=== PATIENT | female | born 1955 | race African-American/Black ===

== ENCOUNTER → 2017-12-13 14:31 | Outpatient (CLI) | payer BC, SELFPAY ==
--- NOTE | 2017-12-13 14:57 | EKG12_ITS ---
Test Reason : PREOP Blood Pressure : / mmHG Vent. Rate : 068 BPM Atrial Rate : 068 BPM P-R Int : 110 ms QRS Dur : 074 ms QT Int : 328 ms P-R-T Axes : 045 045 056 degrees QTc Int : 348 ms Sinus rhythm with short NH with occasional Premature ventricular complexes Possible Left atrial enlargement Nonspecific T wave abnormality Abnormal ECG Confirmed by MARINA MCADAMS, GLORIA ([id number]), slot editor MIKHAIL FAM ([id number]) on 12/14/2017 8:22:13 AM Referred By: Ari Sinclair Confirmed By:GLORIA GRAY MD
[2017-12-13 15:48] LABS: Hematocrit 42.8 % (37-47); Hemoglobin 13.9 g/dl (12.0-15.0); Mean Corp Hgb Conc 32.5 g/gl (32-36); Mean Corpuscular Hgb 30.2 pg (27.0-32.0); Mean Platelet Vol. 10.6 fl (6.2-12.0); Platelet Count 268 K/mm3 (150-450); RBC Distribution Width SD 43.4 fl (35.1-43.9); Scan Indicated on CBC? Y/N NO; White Blood Count 8.1 K/mm3 (4.4-11.0)
[2017-12-13 16:00] LABS: Anion Gap 6 (5-15); BUN 17 mg/dL (7-18); BUN/Creat Ratio 23.8 RATIO (10-20); Calcium,Total 9.2 mg/dL (8.5-10.1); Chloride 108 mmol/L (98-107); Creatinine, Serum 0.71 mg/dL (0.55-1.02); EST Glomerular Filtration Rate 88 mL/min (>60); Est Glom Filt Rate - Afr Amer 106 mL/min (>60); Glucose 85 mg/dL (74-106); Potassium 3.9 mmol/L (3.5-5.1); Sodium Level 142 mmol/L (136-145)
== END ==
PROVIDERS: Family Provider Family Medicine; PCP Family Medicine; Visit Provider Orthopaedic Surgery
DX: Z01.810 Encounter for preprocedural cardiovascular examination (principal); Z01.818 Encounter for other preprocedural examination; I10 Essential (primary) hypertension
CPT/HCPCS: 36415; 80048; 85027; 93005

== ENCOUNTER 2018-01-08 12:24 | Day surgery (SDC) | payer BC, SELFPAY ==
[2018-01-08 12:42] VITALS: BP 115/66; PULSE 71; RESP 16; TEMP 36.4; O2SAT 100; BMI 26.6
[2018-01-08] MEDS: 0.9% Saline Lock 10 ML Syringe IV (13:10)
[2018-01-08] MEDS: Bupivacaine 0.25% 30 ML Vial (13:10)
[2018-01-08] MEDS: MethylPREDNISolone Acetate 80 MG/ML Vial (13:10)
--- NOTE | 2018-01-08 13:30 | RAD_ITS ---
PROCEDURE: Caudal block. DATE OF EXAMINATION: January 08, 2018. INDICATION: Female, 62 years old. Low back pain. FLUOROSCOPY TIME (if supplied): (0:09) minutes/seconds Intraoperative imaging provided for caudal block. The spinal needle is seen along the posterior midportion of the sacrum. RAD/Fluor Guidance for Spine Inj IMPRESSION: Intraoperative imaging provided for caudal block. Electronically Signed: Sukhjinder Doss MD at 15:15 EDT Tel [phone], Service support ,
[2018-01-08 14:17] VITALS: BP 103/64; BP 115/66; PULSE 88; RESP 16; TEMP 37.1; O2SAT 98
[2018-01-08 14:22] VITALS: BP 115/66; BP 98/62; PULSE 78; RESP 16; O2SAT 97
[2018-01-08 14:27] VITALS: BP 100/68; BP 115/66; PULSE 80; RESP 16; O2SAT 99
[2018-01-08 14:32] VITALS: BP 103/69; BP 115/66; PULSE 77; RESP 16; TEMP 36.8; O2SAT 97
[2018-01-08 14:54] VITALS: BP 115/66
--- NOTE | 2018-01-08 16:41 | PCM.OPRPT ---
Problem List (1) Degeneration, intervertebral disc, lumbosacral Status: Chronic (2) Radiculopathy of lumbosacral region Status: Chronic (3) Spinal stenosis of lumbosacral region Status: Chronic Report of Operation Date of Procedure: 01/08/18 Pre-Operative Diagnosis: Lumbosacral radiculopathy, lumbosacral degenerative disc disease, lumbosacral spinal stenosis Post-Operative Diagnosis: Lumbosacral radiculopathy, lumbosacral degenerative disc disease, lumbosacral spinal stenosis Surgery/Procedure Performed:: Diagnostic/therapeutic caudal epidural steroid injection Description of Surgical Findings:: PROCEDURE: Diagnostic/therapeutic caudal epidural steroid injection PREOPERATIVE DIAGNOSIS: Lumbosacral radiculopathy, lumbosacral degenerative disc disease, lumbosacral spinal stenosis POSTOPERATIVE DIAGNOSIS: Lumbosacral radiculopathy, lumbosacral degenerative disc disease, lumbosacral spinal stenosis ANESTHESIA: MAC COMPLICATIONS: None BLOOD LOSS: Minimal PROCEDURE IN DETAIL: History and physical today was reviewed. Risks and benefits of the procedure were explained. The patient understood, agreed to our procedure, and informed consent was obtained. IV inserted per routine protocol. The patient was taken to the operating room, placed in a prone position with a pillow positioned underneath the abdomen. The lower back and buttock area was prepped and draped in a sterile fashion using iodine ?3 and fluoroscopy guidance on the lateral view the caudal space was identified skin and subcutaneous tissue anesthetized approximately 3 cc of 1% lidocaine using a 25-gauge regular needle under direct visualization fluoroscopy using a 22-gauge 3-1/2 inch spinal needle the needle was advanced via the skin through the sacral hiatus tip of the needle passed through the sacrococcygeal ligament advanced approximately S4 area after negative aspiration for blood or CSF a total of 3 cc of contrast were injected to confirm correct placement of the needle as well as cephalad spread the spread was followed to approximately L5 area after confirmation AP as well as lateral view view and repeated negative aspiration a total of 15 cc of preservative preservative-free 0.125% Marcaine with 80 mg of Depo-Medrol were injected easily. The needles were then removed intact. The patient experienced no signs or symptoms intrathecal, intravascular injection. The patient experienced no paraesthesia. The procedure was completed without any apparent difficult, any complication. The patient appeared to tolerate well. ASSESSMENT AND PLAN: This is a 62-year-old female with lumbosacral radiculopathy, lumbosacral degenerative disc disease, lumbosacral spinal stenosis status post diagnostic/therapeutic caudal epidural steroid injection. The patient will continue her current medications. The patient will follow in approximately 2 weeks for possible repeat of the procedure if indicated.
--- NOTE | 2018-01-08 16:46 | OP.PCM_ITS ---
Problem List (1) Degeneration, intervertebral disc, lumbosacral Status: Chronic (2) Radiculopathy of lumbosacral region Status: Chronic (3) Spinal stenosis of lumbosacral region Status: Chronic Report of Operation Date of Procedure: 01/08/18 Pre-Operative Diagnosis: Lumbosacral radiculopathy, lumbosacral degenerative disc disease, lumbosacral spinal stenosis Post-Operative Diagnosis: Lumbosacral radiculopathy, lumbosacral degenerative disc disease, lumbosacral spinal stenosis Surgery/Procedure Performed:: Diagnostic/therapeutic caudal epidural steroid injection Description of Surgical Findings:: PROCEDURE: Diagnostic/therapeutic caudal epidural steroid injection PREOPERATIVE DIAGNOSIS: Lumbosacral radiculopathy, lumbosacral degenerative disc disease, lumbosacral spinal stenosis POSTOPERATIVE DIAGNOSIS: Lumbosacral radiculopathy, lumbosacral degenerative disc disease, lumbosacral spinal stenosis ANESTHESIA: MAC COMPLICATIONS: None BLOOD LOSS: Minimal PROCEDURE IN DETAIL: History and physical today was reviewed. Risks and benefits of the procedure were explained. The patient understood, agreed to our procedure, and informed consent was obtained. IV inserted per routine protocol. The patient was taken to the operating room, placed in a prone position with a pillow positioned underneath the abdomen. The lower back and buttock area was prepped and draped in a sterile fashion using iodine ?3 and fluoroscopy guidance on the lateral view the caudal space was identified skin and subcutaneous tissue anesthetized approximately 3 cc of 1 % lidocaine using a 25-gauge regular needle under direct visualization fluoroscopy using a 22-gauge 3-1/2 inch spinal needle the needle was advanced via the skin through the sacral hiatus tip of the needle passed through the sacrococcygeal ligament advanced approximately S4 area after negative aspiration for blood or CSF a total of 3 cc of contrast were injected to confirm correct placement of the needle as well as cephalad spread the spread was followed to approximately L5 area after confirmation AP as well as lateral view view and repeated negative aspiration a total of 15 cc of preservative preservative-free 0.125% Marcaine with 80 mg of Depo-Medrol were injected easily. The needles were then removed intact. The patient experienced no signs or symptoms intrathecal, intravascular injection. The patient experienced no paraesthesia. The procedure was completed without any apparent difficult, any complication. The patient appeared to tolerate well. ASSESSMENT AND PLAN: This is a 62-year-old female with lumbosacral radiculopathy, lumbosacral degenerative disc disease, lumbosacral spinal stenosis status post diagnostic/ therapeutic caudal epidural steroid injection. The patient will continue her current medications. The patient will follow in approximately 2 weeks for possible repeat of the procedure if indicated.
== END 2018-01-08 14:59 | disposition home or self-care (01) ==
LOC: SDC 12:24 → AC 12:26
PROVIDERS: Family Provider Family Medicine; PCP Family Medicine; Visit Provider Anesthesiology Pain Medicine
PROC: 3E0S3BZ Introduction of Anesthetic Agent into Epidural Space, Percutaneous Approach (ICD-10-PCS; CPT 62282; principal; 2018-01-08 13:25)
DX: M51.17 Intervertebral disc disorders with radiculopathy, lumbosacral region (principal); M48.07 Spinal stenosis, lumbosacral region; I10 Essential (primary) hypertension; J45.909 Unspecified asthma, uncomplicated; E78.00 Pure hypercholesterolemia, unspecified; M79.7 Fibromyalgia; M51.37 Other intervertebral disc degeneration, lumbosacral region; M19.011 Primary osteoarthritis, right shoulder; M54.2 Cervicalgia; Z79.891 Long term (current) use of opiate analgesic; Z87.891 Personal history of nicotine dependence
CPT/HCPCS: 64483; 77003; J7120; A4216

== ENCOUNTER 2018-01-15 12:00 | Outpatient (RCR) | payer BC, SELFPAY ==
--- NOTE | 2018-01-01 15:54 | HP.OTEVAL ---
Patient's Visit Information LELE AUGUSTE is a 62 year old F, referred to Occupational Therapy by Ari Sinclair, with a diagnosis of bilateral CTS. Date of Evaluation: 01/01/18 Occupational Therapist: Taya Mora, OTR/L, CHT - Subjective Subjective: pt states her left UE/hand was casing pain, tingling/ and keeping her up at night- pt went to and had a nerve conduction test- revealing bilateral CTS- pt had left CTR performed on December 15, 2017. pt states her symptoms in left hand have resolved- pt states when she wakes up in the morning it takes about an hour or more to get her pain and motion to start using her hands and arms for daily occupations. pt states a hot shower and a heating pad does help decrease her pain . 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 with BADLs and IADLS Goal:: pt will report pain no greater than 2/10 with use of bilateral hands with BADLS and IADLS by d/c Goal:: pt will demo understanding of scar mtg by end of 2nd session. Goal:: pt will demo understanding of joint protection and ad. eq. to decrease joint stress with performance of BADLS and IADLS - Rehabilitation General Assessment: s/p left CTR. dx right sprain of shoulder - defered to PT at this time- OT will focus on pt CTS and CTR- pt demo with a decrease in her ind. with BADLS and IADLS- pt would benefit from skilled OTR/L services 1-2x week for 4 weeks to return pt to PLOF and ed. on joint protection and ad. eq. for her ind. with BADLS and IADLS Rehabilitation Potential: Good - Anticipated Interventions Anticipated Interventions: A/AAROM/PROM, Strengthening, Scar Care, Triggerpoint Release, Desensitization, Modalities, Joint Protection/Energy Conservation, Fine Motor Coord/Gurdeep - Visit Plan Frequency: 1-2x /Week Duration: 4 Weeks TEXT: Thank you for the opportunity to evaluate your patient. For Medicare and Medicare HMO plans, please review the plan of care and approve it. It will need to be FAXED BACK to us at [phone] for Medicare purposes. Please let me know if there are questions or concerns regarding this plan of care. Physician Signature: Date:
--- NOTE | 2018-01-15 13:48 | HP.OTDCSUM ---
HP - OT D/C Summary It has been my pleasure to treat LELE AUGUSTE under orders from Ari Sinclair, for the diagnosis of bilateral CTS for a total of 3 visit(s). Please see the following information for a summary of their discharge status. - Objective Objective/Function: pt demo all ROM WNL-. 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 pt has met goals in OT - Goals Patient Goals: Regain Mobility, Regain Strength, Decrease Pain, Improve Fine Motor Skills, Use Hand/Wrist/Arm Normally Again Goal:: pt will demo a increase in left power transformer repair supervisor strength to 30# or greater to increase her ind. with BADLs and IADLS Goal:: pt will report pain no greater than 2/10 with use of bilateral hands with BADLS and IADLS by d/c Goal:: pt will demo understanding of scar mtg by end of 2nd session. Goal:: pt will demo understanding of joint protection and ad. eq. to decrease joint stress with performance of BADLS and IADLS - Plan Plan: D/C - D/C Information Discharge Comments: Pt was seen for 3 visits following a left CTR. pts pain decreased and she reports she is ind. with all BADLs and IADLs. pt has met functional goals in therapy and is D/C at this time. If there are questions or concerns regarding this patient's occupational therapy, please fell free to call me at [phone]. Thank you for the referral of this patient. Sincerely, Taya Mora, OTR/L, CHT
--- NOTE | 2018-01-17 14:39 | HP.PTEVAL_ITS ---
Patient's Visit Information LELE AUGUSTE is a 62 year old F referred to Physical Therapy by Ari Sinclair with a diagnosis of Sprain of R RTC and R shoulder bursitis. Date of Evaluation: 01/09/18 Physical Therapist: Willis Mireles - Visit Plan Frequency: 1x/Week Duration: 6 Weeks Plan: Start with Phase II shoulder program with in pain free ranges. Progress to phase III in pain free ranges as tolerated. Pt. reports having difficulty getting here and will have PT weekly to accomadate schedule. Pt. given exercises to complete at home in between. - Subjective Subjective: Pt. is here today for her initial evaluation with diagnosis of sprain of R rotator cuff and R shoulder bursitis. Pt. reports having increased R shoulder pain for ~4 months now. Pt. recently having L carpal tunnel release. Pt. reports increased pain during that period possibly due to sleeping on her R side. Pt. also is ~1 year out of lumbar spinal surgery, pt. c/o continued dorsal surface of L foot. She has increased pain with lifting her arm over head , sleeping on R side, reaching overhead. Pt. reports pain extends into mid deltoid with above activities. Pt. denies N/T. Pt. has been reducing movement in R arm due to soreness. Pt. is hopeful to improve symptoms in order to get back to all ADL and household work without issues. - Pain R shoulder Pain Intensity (Out of 10): 2 - Objective POSTURE: Pt. has slight rounded shoulders, normal cervical spine positioning. Pt. has normal shoulder positioning with no elevation noted. PALPATION: Pt. has slight tenderness along sub acromial spaced, greater on posterior aspect compaired to anterior. Pt. has mild tenderness at UT and levator scapulea. NEUROLOGICAL: Pt. has normal sensation to light and sharp touch of bilateral UEs. Pt. has 2+ biceps and triceps DTR bilaterally. Pt. has no signs of upper limb tension.. ROM: R shoulder- flexion 170deg increase NW at end range, abd 165deg mild increase NW (painful arc starting at 90deg), functional ER C6 mild increase NW, functional IR T10 mild increase NW. Normal cervical spine ROM without increase in symptoms. MMT: LUE 5/5 throughout without issues. RUE- elbow- 5/5 throughout without increase in symptoms, shoulder- flexion 4+/5 increase NW, abd 4/5 increase NW, ext 5/5 NE, ER 4/5 increase NW, IR 5/5 NE. - Special Tests R Shoulder Empty Can - SS: Positive R Shoulder Belly Press - SupScap: Negative R Shoulder Neer - Impingement: Positive R Shoulder Puckett Donta - Impingement: Positive R Shoulder Biceps Load Test - Labrum: Negative R Shoulder Speeds Test - Labrum/Biceps: Positive - Goals Goal 1:: Pt. to be I with HEP. Goal Time Frame: 4-6 Weeks Goal 2:: Pt. to have full ROM of R shoulder without increase in symptoms. Goal Time Frame: 4-6 Weeks Goal 3:: Pt. to have increased RUE strength by 1/2 grade of all effected musculature allowing increased ability to complete all ADLs. Goal Time Frame: 4-6 Weeks Goal 4:: Pt. to sleep throughout the night without increase in R shoulder pain. Goal Time Frame: 4-6 Weeks - Rehabilitation Potential Physical Therapy Diagnosis: Pt. has signs and symptoms consistent with R RTC strain and R shoulder bursitis. Pt. has + signs for impingement of RTC/bursa. Pt. has associated weakness, likely secondary to increased pain. Pt. has limited motion with increased pain as well. She had an MRI stating no recurrent tearing. Pt. would benefit from PT to increase ROM, decrease pain and progress strength in order to get back to all PLOF without limitations. Rehabilitation Potential: Good - Anticipated Interventions Patient/Client Instruction: Educate patient on: Condition, Plan of Care, Risk Factors, Benefits of Fitness Program For the Purpose of:: To improve safety, To improve health and function, To foster healthy habits, To improve decision making, To facilitate caregiver knowledge, To improve self management, To prevent re-injury, To improve ability to perform tasks related to life management, To improve tolerance to ADL's Therapeutic Exercise to Include: Strength training, Power training, Postural training, Flexibilty training, Passive ROM, Active ROM, Scapular Strength/ Stabilization For the Purpose of:: To decrease pain, To increase ROM, To improve nutrient delivery to tissue, To increase oxygenation perfusion, To improve muscle performance and motor function, To improve ability to perform ADL's, To improve health of tissue, To decrease soft tissue restriction, To increase flexibility/ ROM Manual Therapy Techniques to Include: Trigger point massage, Mobilization, Passive ROM, Functional dry needling, Soft tissue mobilization For the Purpose of:: To decrease pain, To decrease swelling/inflammation, To improve nutrient delivery to tissue, To improve health of tissue, To decrease soft tissue restriction, To increase flexibility/ROM Cryotherapy (ice pack, ice massage): Yes Thermo therapy (hot pack): Yes Ultrasound (thermal/non thermal): Yes For the Purpose of:: To decrease pain, To decrease swelling/inflammation, To increase ROM Thank you for the opportunity to evaluate your patient. For Medicare and Medicare HMO plans, please review the plan of care and approve it. It will need to be FAXED BACK to us at [phone] for Medicare purposes. Please let me know if there are questions or concerns regarding this plan of care. Physician Signature: Date:
--- NOTE | 2018-04-24 13:23 | HP.PT.NRP ---
HP - Discharge Summary (1) - Patient Information LELE AUGUSTE was seen in my office for initial evaluation on 01/09/18. The following Plan of Care was established for this patient: Initial Frequency: 1x/Week Initial Duration: 6 Weeks - Anticipated Interventions Patient/Client Instruction: Educate patient on: Condition, Plan of Care, Risk Factors, Benefits of Fitness Program For the Purpose of:: To improve safety, To improve health and function, To foster healthy habits, To improve decision making, To facilitate caregiver knowledge, To improve self management, To prevent re-injury, To improve ability to perform tasks related to life management, To improve tolerance to ADL's Therapeutic Exercise to Include: Strength training, Power training, Postural training, Flexibilty training, Passive ROM, Active ROM, Scapular Strength/Stabilization For the Purpose of:: To decrease pain, To increase ROM, To improve nutrient delivery to tissue, To increase oxygenation perfusion, To improve muscle performance and motor function, To improve ability to perform ADL's, To improve health of tissue, To decrease soft tissue restriction, To increase flexibility/ROM Manual Therapy Techniques to Include: Trigger point massage, Mobilization, Passive ROM, Functional dry needling, Soft tissue mobilization For the Purpose of:: To decrease pain, To decrease swelling/inflammation, To improve nutrient delivery to tissue, To improve health of tissue, To decrease soft tissue restriction, To increase flexibility/ROM Cryotherapy (ice pack, ice massage): Yes Thermo therapy (hot pack): Yes Ultrasound (thermal/non thermal): Yes For the Purpose of:: To decrease pain, To decrease swelling/inflammation, To increase ROM This patient was last seen in our office 01/09/18. Pertinent comments regarding their Physical therapy will appear below: Pt. was seen for her initial eval with diagnosis of RTC strain. Pt. did not attent any follow up visits and will be DC from PT at this point in time. At this point I will be discontinuing this patient from physical therapy. I would be happy to see this patient again in the future if found appropriate by the physician. Thank you! Willis Mireles
== END 2018-01-15 19:00 | disposition home or self-care (01) ==
LOC: OT 12:00
PROVIDERS: Family Provider Family Medicine; PCP Family Medicine; Visit Provider Orthopaedic Surgery
DX: S43.421D Sprain of right rotator cuff capsule, subsequent encounter (principal); M75.51 Bursitis of right shoulder; G56.03 Carpal tunnel syndrome, bilateral upper limbs
CPT/HCPCS: 97035; 97110; 97161; 97166; 97168

== ENCOUNTER → 2018-02-02 15:36 | Outpatient (CLI) | payer BC, SELFPAY ==
[2018-02-02 17:38] LABS: Erythrocyte Sedimentation Rate 38 mm/hr (0-30)
[2018-02-15 10:26] LABS: CCP IgG Antibodies > 250 units (0-19)
[2018-02-15 12:25] LABS: ANTINUCLEAR ANTIBODIES DIRECT Negative (Negative)
== END ==
PROVIDERS: Family Provider Family Medicine; PCP Family Medicine; Visit Provider Family Medicine
DX: M25.50 Pain in unspecified joint (principal)
CPT/HCPCS: 36415; 85652; 86038; 86140; 86200; 86431

== ENCOUNTER → 2018-03-26 12:38 | Outpatient (CLI) | payer BC, SELFPAY ==
[2018-03-26 14:03] LABS: Absolute Lymphocyte Count 1.99 X10^3/ul (0.83-4.51); Basophil# 0.03 X10^3/uL; Basophil% 0.4 % (0-1); Eosinophil# 0.36 X10^3/uL; Eosinophils% 5.2 % (0-5); Hematocrit 42.4 % (37-47); Hemoglobin 13.9 g/dl (12.0-15.0); Lymphocyte # 1.99 X10^3/ul (4.0); Lymphocyte % 28.7 % (19-41); Mean Corp Hgb Conc 32.8 g/gl (32-36); Mean Corpuscular Hgb 29.6 pg (27.0-32.0); Mean Corpuscular Volume 90.4 fL (81-99); Mean Platelet Vol. 10.5 fl (6.2-12.0); Monocyte# 0.55 X10^3/uL; Monocyte% 7.9 % (0-10); Neutrophil # 3.99 X10^3/uL (2.7-7.7); Neutrophil % 57.7 % (47-70); Platelet Count 284 K/mm3 (150-450); RBC Distribution Width CV 14.9 % (11.6-14.6); RBC Distribution Width SD 48.8 fl (35.1-43.9); Red Blood Count 4.69 M/mm3 (4.2-5.4); White Blood Count 6.9 K/mm3 (4.4-11.0)
[2018-03-26 14:04] LABS: POSITIVE COUNT NO; POSITIVE DIFFERENTIAL NO; POSITIVE MORPHOLOGY NO
[2018-03-26 14:05] LABS: Erythrocyte Sedimentation Rate 39 mm/hr (0-30)
[2018-03-26 14:07] LABS: Vitamin D,25 Hydroxy 37.1 ng/mL (29.95-100.01)
[2018-03-26 14:12] LABS: ALB/GLOB Ratio 0.8 RATIO (0.9-2.4); AST(SGOT) 14 U/L (15-37); Alanine Aminotransfer ALT/SGPT 20 U/L (13-56); Albumin, Serum 3.1 g/dL (3.2-5.0); Alkaline Phosphatase 98 U/L (45-117); Anion Gap 9 (5-15); BUN 15 mg/dL (7-18); Calcium,Total 8.8 mg/dL (8.5-10.1); Chloride 108 mmol/L (98-107); Cholesterol 150 mg/dL (200); Creatinine, Serum 0.71 mg/dL (0.55-1.02); EST Glomerular Filtration Rate 88 mL/min (>60); Est Glom Filt Rate - Afr Amer 106 mL/min (>60); Globulin 3.7 g/dL (2.2-4.2); Glucose 97 mg/dL (74-106); High Density Lipoprotein 72 mg/dL; Iron 51 ug/dL (50-170); Potassium 4.1 mmol/L (3.5-5.1); Protein, Total 6.8 g/dL (6.4-8.2); Sodium Level 144 mmol/L (136-145); Thyroid Stim Hormone (TSH) 1.18 uIU/mL (0.358-3.74); Triglycerides 61 mg/dL; Very Low Density Lipoprotein 12 mg/dL (5-40)
== END ==
PROVIDERS: Family Provider Family Medicine; PCP Family Medicine; Visit Provider Family Medicine
DX: E78.5 Hyperlipidemia, unspecified (principal); E55.9 Vitamin D deficiency, unspecified; I10 Essential (primary) hypertension; R53.83 Other fatigue; Z51.81 Encounter for therapeutic drug level monitoring; M06.9 Rheumatoid arthritis, unspecified
CPT/HCPCS: 36415; 80053; 80061; 82306; 83540; 84443; 85025; 85652; 86140

== ENCOUNTER 2018-04-09 10:53 | Day surgery (SDC) | payer BC, MEDICAID, SELFPAY ==
[2018-04-09 11:12] VITALS: BP 122/83; PULSE 66; RESP 18; TEMP 36.5; O2SAT 100; BMI 25.4
[2018-04-09] MEDS: MethylPREDNISolone Acetate 80 MG/ML Vial (12:08)
[2018-04-09] MEDS: Bupivacaine 0.25% 30 ML Vial (12:08)
[2018-04-09 12:17] VITALS: BP 104/71; BP 122/83; PULSE 77; RESP 14; TEMP 36.8; O2SAT 100
[2018-04-09 12:22] VITALS: BP 122/83; BP 92/63; PULSE 71; RESP 16; O2SAT 100
--- NOTE | 2018-04-09 12:25 | OP.PCM_ITS ---
Problem List (1) Degeneration, intervertebral disc, lumbosacral Status: Chronic (2) Radiculopathy of lumbosacral region Status: Chronic (3) Spinal stenosis of lumbosacral region Status: Chronic Report of Operation Date of Procedure: 04/09/18 Pre-Operative Diagnosis: Lumbosacral radiculopathy, lumbosacral degenerative disc disease, lumbosacral spinal stenosis Post-Operative Diagnosis: Lumbosacral radiculopathy, lumbosacral degenerative disc disease, lumbosacral spinal stenosis Surgery/Procedure Performed:: Caudal epidural steroid injection Description of Surgical Findings:: PROCEDURE: Caudal epidural steroid injection PREOPERATIVE DIAGNOSIS: Lumbosacral radiculopathy, lumbosacral degenerative disc disease, lumbosacral spinal stenosis POSTOPERATIVE DIAGNOSIS: Lumbosacral radiculopathy, lumbosacral degenerative disc disease, lumbosacral spinal stenosis ANESTHESIA: MAC COMPLICATIONS: None BLOOD LOSS: Minimal PROCEDURE IN DETAIL: History and physical today was reviewed. Risks and benefits of the procedure were explained. The patient understood, agreed to our procedure, and informed consent was obtained. IV inserted per routine protocol. The patient was taken to the operating room, placed in a prone position with a pillow positioned underneath the abdomen. The lower back and buttock area was prepped and draped in a sterile fashion using iodine ?3 under fluoroscopy guidance a lateral view the caudal space was was identified skin and subcutaneous tissue anesthetized approximately 3 cc of 1 % lidocaine using a 25-gauge regular needle. Under direct visualization fluoroscopy in a lateral view using a 22-gauge 3-1/2 inch spinal needle needle was advanced via the skin through the sacral hiatus tip of the needle passed through the sacrococcygeal ligament advanced approximately S4 area after negative aspiration for blood or CSF a total of 3 cc of contrast were injected to confirm correct placement of the needle as well as cephalad spread the spread was followed to approximately L5 area after confirmation of AP as well as lateral view and repeated negative aspiration a total of 15 cc of preservative free 0.125% Marcaine with 80 mg of Depo-Medrol were injected easily , the needles were then removed intact. The patient experienced no signs or symptoms intrathecal, intravascular injection. The patient experienced no paraesthesia. The procedure was completed without any apparent difficult, any complication. The patient appeared to tolerate well. ASSESSMENT AND PLAN: This is a 62-year-old female with lumbosacral radiculopathy, lumbosacral degenerative disc disease, lumbosacral spinal stenosis status post caudal epidural steroid injection, the patient will continue her current medications. The patient will follow in approximately 2 weeks for possible repeat of the procedure if indicated.
[2018-04-09 12:27] VITALS: BP 122/83; BP 99/69; PULSE 66; RESP 16; O2SAT 99
[2018-04-09 12:30] VITALS: BP 107/75; BP 122/83; PULSE 57; RESP 16; TEMP 36.5; O2SAT 100
[2018-04-09 12:57] VITALS: BP 122/83
== END 2018-04-09 12:57 | disposition home or self-care (01) ==
LOC: SDC 10:53 → AC 11:00
PROVIDERS: Family Provider Family Medicine; PCP Family Medicine; Visit Provider Anesthesiology Pain Medicine
PROC: 3E0S3BZ Introduction of Anesthetic Agent into Epidural Space, Percutaneous Approach (ICD-10-PCS; CPT 62282; principal; 2018-04-09 12:05)
DX: M47.27 Other spondylosis with radiculopathy, lumbosacral region (principal); M48.07 Spinal stenosis, lumbosacral region; M46.86 Other specified inflammatory spondylopathies, lumbar region; M51.37 Other intervertebral disc degeneration, lumbosacral region; M19.011 Primary osteoarthritis, right shoulder; I10 Essential (primary) hypertension; E78.00 Pure hypercholesterolemia, unspecified; J44.9 Chronic obstructive pulmonary disease, unspecified; F32.9 Major depressive disorder, single episode, unspecified; F90.9 Attention-deficit hyperactivity disorder, unspecified type; M06.9 Rheumatoid arthritis, unspecified; G25.81 Restless legs syndrome; Z78.0 Asymptomatic menopausal state; Z98.1 Arthrodesis status; Z79.899 Other long term (current) drug therapy; Z79.891 Long term (current) use of opiate analgesic; Z87.891 Personal history of nicotine dependence
CPT/HCPCS: 01992; 62323; 64483; 77003; J7120; J3490

== ENCOUNTER → 2018-04-18 15:41 | Outpatient (CLI) | payer BC, MEDICAID, SELFPAY ==
[2018-04-18 17:45] LABS: ALB/GLOB Ratio 0.9 RATIO (0.9-2.4); AST(SGOT) 13 U/L (15-37); Alanine Aminotransfer ALT/SGPT 25 U/L (13-56); Albumin, Serum 3.7 g/dL (3.2-5.0); Alkaline Phosphatase 103 U/L (45-117); Anion Gap 9 (5-15); BUN 18 mg/dL (7-18); BUN/Creat Ratio 22.5 RATIO (10-20); Calcium,Total 9.1 mg/dL (8.5-10.1); Chloride 107 mmol/L (98-107); EST Glomerular Filtration Rate 77 mL/min (>60); Est Glom Filt Rate - Afr Amer 93 mL/min (>60); Globulin 3.9 g/dL (2.2-4.2); Glucose 117 mg/dL (74-106); Potassium 3.6 mmol/L (3.5-5.1); Protein, Total 7.6 g/dL (6.4-8.2); Sodium Level 142 mmol/L (136-145)
[2018-04-18 17:48] LABS: Absolute Lymphocyte Count 3.01 X10^3/ul (0.83-4.51); Absolute Neutrophil Count 5.5 X10^3/uL (2.0-7.7); Basophil# 0.05 X10^3/uL; Basophil% 0.5 % (0-1); Eosinophil# 0.14 X10^3/uL; Eosinophils% 1.5 % (0-5); Hematocrit 45.2 % (37-47); Lymphocyte # 3.01 X10^3/ul (4.0); Mean Corpuscular Hgb 28.6 pg (27.0-32.0); Mean Corpuscular Volume 92.2 fL (81-99); Mean Platelet Vol. 10.5 fl (6.2-12.0); Monocyte# 0.43 X10^3/uL; Monocyte% 4.7 % (0-10); Neutrophil # 5.46 X10^3/uL (2.7-7.7); Platelet Count 373 K/mm3 (150-450); RBC Distribution Width CV 14.5 % (11.6-14.6); RBC Distribution Width SD 48.9 fl (35.1-43.9); White Blood Count 9.1 K/mm3 (4.4-11.0)
[2018-04-18 17:52] LABS: POSITIVE COUNT NO; POSITIVE DIFFERENTIAL NO; POSITIVE MORPHOLOGY NO
[2018-04-20 12:07] LABS: SJOGREN'S Anti-SS-A test < 0.2 AI (0.0-0.9); SJOGREN'S Anti-SS-B test < 0.2 AI (0.0-0.9)
[2018-04-20 13:22] LABS: ANTINUCLEAR ANTIBODIES DIRECT Negative (Negative)
[2018-04-21 09:28] LABS: CCP IgG Antibodies > 250 units (0-19); HEPATITIS B SURFACE AG Negative (Negative); Hep B Surface Antibodies Non Reactive (.); Hep C Antibodies 0.1 s/co ratio (0.0-0.9)
== END ==
PROVIDERS: Family Provider Family Medicine; PCP Family Medicine; Visit Provider Internal Medicine Rheumatology
DX: M06.09 Rheumatoid arthritis without rheumatoid factor, multiple sites (principal); M16.0 Bilateral primary osteoarthritis of hip; I10 Essential (primary) hypertension; E78.5 Hyperlipidemia, unspecified; J45.909 Unspecified asthma, uncomplicated; F41.9 Anxiety disorder, unspecified; F32.89 Other specified depressive episodes; F90.9 Attention-deficit hyperactivity disorder, unspecified type
CPT/HCPCS: 36415; 80053; 85025; 86038; 86200; 86235; 86706; 86803; 87340

== ENCOUNTER 2018-05-14 08:41 | Day surgery (SDC) | payer BC, MEDICAID, SELFPAY ==
[2018-05-14] VITALS (10 sets, daily range): BP systolic 114–151; BP diastolic 72–92; PULSE 63–75; RESP 16–18; TEMP 36.3–37.2; O2SAT 99–100; BMI 25.2
--- NOTE | 2018-05-14 11:41 | PCM.IMDPSTOP ---
Immediate Post-Op Note Date of Procedure: 05/14/18 Primary Surgeon/Physician: Ari Sinclair ediscovery project manager: none Pre-Operative Diagnosis: CTS right, trigger fingers right thumb and long fingers Post-Operative Diagnosis: same Surgery/Procedure Performed:: RDTCL right, release A1 pulleys right thumb and long fingers Description of Surgical Findings:: see note Estimated Blood Loss: none Specimen's removed: none Type of Anesthesia:: Block,Edmund ASA Class: ASA2 Plus Emergency - Admit VTE Documentation VTE Present on Admission: No VTE Mechan Device Prophylaxis: SCD's VTE Pharm Prophylaxis ordered?: No Reason prophylaxis not ordered:: Treatment Not Indicated
== END 2018-05-14 13:27 | disposition home or self-care (01) ==
LOC: SDC 08:41 → AC 08:42
PROVIDERS: Family Provider Family Medicine; PCP Family Medicine; Visit Provider Orthopaedic Surgery
PROC: (CPT 64721; principal; 2018-05-14 10:00)
DX: G56.01 Carpal tunnel syndrome, right upper limb (principal); M65.311 Trigger thumb, right thumb; M65.331 Trigger finger, right middle finger; M06.9 Rheumatoid arthritis, unspecified; I10 Essential (primary) hypertension; E78.00 Pure hypercholesterolemia, unspecified; J45.909 Unspecified asthma, uncomplicated; G25.81 Restless legs syndrome; H54.7 Unspecified visual loss; F32.9 Major depressive disorder, single episode, unspecified; F41.9 Anxiety disorder, unspecified; Z78.0 Asymptomatic menopausal state; Z79.52 Long term (current) use of systemic steroids; Z79.899 Other long term (current) drug therapy; Z87.891 Personal history of nicotine dependence
CPT/HCPCS: 26055 ×2; 64721; J7120; J2405

== ENCOUNTER 2018-05-21 08:50 | Day surgery (SDC) | payer BC, MEDICAID, SELFPAY ==
[2018-05-21] VITALS (7 sets, daily range): BP systolic 90–133; BP diastolic 62–72; PULSE 57–68; RESP 14–17; TEMP 36.3–36.7; O2SAT 99–100; BMI 25.4
--- NOTE | 2018-05-21 09:45 | RAD_ITS ---
PROCEDURE: Bilateral L4 S1 facet joint block. DATE OF EXAMINATION: May 21, 2018. INDICATION: Female, 62 years old. Prior laminectomy and fusion. Back pain. FLUOROSCOPY TIME (if supplied): (0:42) minutes/seconds. 8 coned down intraoperative views were obtained. Imaging provided for bilateral L4 S1 facet joint block. RAD/L/S Spine Min 4 Views IMPRESSION: Imaging provided for bilateral L4 S1 facet joint block. Electronically Signed: Sukhjinder Doss MD at 14:27 EDT Tel [phone], Service support ,
[2018-05-21] MEDS: Bupivacaine 0.5% PF 10 ML VIAL (09:53)
[2018-05-21] MEDS: MethylPREDNISolone Acetate 80 MG/ML Vial (09:53)
--- NOTE | 2018-05-21 14:54 | OP.PCM_ITS ---
Problem List (1) Spondylosis of 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 myelopathy or radiculopathy Status: Chronic (2) Degeneration, intervertebral disc, lumbosacral Status: Chronic Report of Operation Date of Procedure: 05/21/18 Pre-Operative Diagnosis: Lumbosacral spondylosis, lumbosacral degenerative disc disease, lumbar facet arthropathy Post-Operative Diagnosis: Lumbosacral spondylosis, lumbosacral degenerative disc disease, lumbar facet arthropathy Surgery/Procedure Performed:: Bilateral lumbar facet steroid injection L4, L5, S1 Description of Surgical Findings:: PROCEDURE: Bilateral lumbar facet steroid injection L4, L5, S1 PREOPERATIVE DIAGNOSIS: Lumbosacral spondylosis, lumbosacral degenerative disc disease, and lumbar facet arthropathy POSTOPERATIVE DIAGNOSIS: Lumbosacral spondylosis, lumbosacral degenerative disc disease, and lumbar facet arthropathy ANESTHESIA: MAC COMPLICATIONS: None BLOOD LOSS: Minimal PROCEDURE IN DETAIL: History and physical today was reviewed. Risks and benefits of the procedure were explained. The patient understood, agreed to our procedure, and informed consent was obtained. IV inserted per routine protocol. The patient was taken to the operating room, placed in a prone position with a pillow positioned underneath the abdomen. The lower back was prepped and draped in a sterile fashion using iodine x3. Under fluoroscopy guidance, on AP view, L3 through S1 vertebral bodies were visualized. Skin and subcutaneous tissues were anesthetized with approximately 5 mL of 1% lidocaine using a 25-gauge regular needle. Under direct visualization with fluoroscopy at approximately 25-degree angle, starting on the right L4, ending on the left L4, passing through the L5 and S1, using a 22-gauge 3 1/2-inch spinal needle, the needle was advanced via the skin. The tip of the needle was maneuvered and directed towards the superior and medial gutter of the transverse process at the vicinity of the medial branch. Once the tip of the needle was in contact with the bone, the needle pulled approximately 2 mm off the bone. After negative aspiration of blood with CSF and confirmation of AP as well as oblique view, a total of 12 mL of preservative-free 0.25% Marcaine with 80 mg of Depo- Medrol was injection in divided doses between those 6 levels. The needles were then removed intact. The patient experienced no signs or symptoms intrathecal, intravascular injection. The patient experienced no paraesthesia. The procedure was completed without any apparent difficult, any complication. The patient appeared to tolerate well. ASSESSMENT AND PLAN: This is a 62-year-old female with lumbosacral spondylosis lumbosacral degenerative disc disease, and lumbar facet arthropathy, status post bilateral lumbar facet steroid injection L4 through S1. The patient will continue her current medications. The patient will follow in approximately 2 weeks for possible repeat of the procedure if indicated.
== END 2018-05-21 10:59 | disposition home or self-care (01) ==
LOC: SDC 08:50 → AC 08:51
PROVIDERS: Family Provider Family Medicine; PCP Family Medicine; Visit Provider Anesthesiology Pain Medicine
PROC: 3E0T3BZ Introduction of Anesthetic Agent into Peripheral Nerves and Plexi, Percutaneous Approach (ICD-10-PCS; CPT 64484; principal; 2018-05-21 09:40)
DX: M51.37 Other intervertebral disc degeneration, lumbosacral region (principal); M47.817 Spondylosis without myelopathy or radiculopathy, lumbosacral region; E78.00 Pure hypercholesterolemia, unspecified; I10 Essential (primary) hypertension; Z87.891 Personal history of nicotine dependence; J44.9 Chronic obstructive pulmonary disease, unspecified; F32.9 Major depressive disorder, single episode, unspecified; M06.9 Rheumatoid arthritis, unspecified; M54.2 Cervicalgia; M25.521 Pain in right elbow; M19.011 Primary osteoarthritis, right shoulder; M79.7 Fibromyalgia; Z79.891 Long term (current) use of opiate analgesic
CPT/HCPCS: 62323; 64484 ×2; 64483; 72110; J3490

== ENCOUNTER → 2018-07-04 15:36 | Outpatient (CLI) | payer BC, MEDICAID, SELFPAY ==
--- NOTE | 2018-07-04 15:41 | RAD_ITS ---
STUDY: X-RAY - LEFT SHOULDER REASON FOR EXAM: Female, 63 years old. Pain TECHNIQUE: 4 view(s) of the shoulder. COMPARISON: None. FINDINGS: There is mild degenerative arthrosis of the glenohumeral articulation. There has been previous resection of the distal clavicle Normal acromion. Evidence of previous rotator cuff surgery Normal humeral head and visualized proximal humerus. The soft tissue structures are unremarkable. Normal visualized pulmonary apex. RAD/Shoulder min 2 Views IMPRESSION: Degenerative arthrosis Previous rotator cuff surgery Previous resection of the distal clavicle Electronically Signed: Brayan Mackenzie MD at 13:45 EDT , Service support ,
== END ==
PROVIDERS: Family Provider Family Medicine; PCP Family Medicine; Referring Provider Anesthesiology Pain Medicine; Visit Provider Anesthesiology Pain Medicine
DX: M25.512 Pain in left shoulder (principal)
CPT/HCPCS: 73030

== ENCOUNTER → 2018-07-30 13:34 | Outpatient (CLI) | payer BC, MEDICAID, SELFPAY ==
[2018-05-21 09:07] VITALS: BMI 25.4
[2018-07-30 16:10] LABS: Absolute Lymphocyte Count 3.08 X10^3/ul (0.83-4.51); Absolute Neutrophil Count 3.9 X10^3/uL (2.0-7.7); Basophil# 0.05 X10^3/uL; Basophil% 0.6 % (0-1); Eosinophil# 0.17 X10^3/uL; Eosinophils% 2.2 % (0-5); Hematocrit 44.3 % (37-47); Hemoglobin 14.1 g/dl (12.0-15.0); Lymphocyte # 3.08 X10^3/ul (4.0); Lymphocyte % 39.5 % (19-41); Mean Corp Hgb Conc 31.8 g/gl (32-36); Mean Corpuscular Hgb 29.6 pg (27.0-32.0); Mean Corpuscular Volume 92.9 fL (81-99); Mean Platelet Vol. 10.7 fl (6.2-12.0); Monocyte# 0.52 X10^3/uL; Monocyte% 6.7 % (0-10); Neutrophil # 3.94 X10^3/uL (2.7-7.7); Neutrophil % 50.6 % (47-70); Platelet Count 341 K/mm3 (150-450); RBC Distribution Width CV 15.1 % (11.6-14.6); RBC Distribution Width SD 50.3 fl (35.1-43.9); Red Blood Count 4.77 M/mm3 (4.2-5.4); White Blood Count 7.8 K/mm3 (4.4-11.0)
[2018-07-30 16:13] LABS: POSITIVE COUNT NO; POSITIVE DIFFERENTIAL NO; POSITIVE MORPHOLOGY NO
[2018-07-30 16:27] LABS: ALB/GLOB Ratio 0.9 RATIO (0.9-2.4); AST(SGOT) 16 U/L (15-37); Alanine Aminotransfer ALT/SGPT 28 U/L (13-56); Albumin, Serum 3.6 g/dL (3.2-5.0); Alkaline Phosphatase 116 U/L (45-117); Anion Gap 9 (5-15); BUN 18 mg/dL (7-18); BUN/Creat Ratio 23.1 RATIO (10-20); Calcium,Total 9.1 mg/dL (8.5-10.1); Chloride 105 mmol/L (98-107); Creatinine, Serum 0.78 mg/dL (0.55-1.02); EST Glomerular Filtration Rate 79 mL/min (>60); Est Glom Filt Rate - Afr Amer 96 mL/min (>60); Globulin 3.9 g/dL (2.2-4.2); Glucose 95 mg/dL (74-106); Potassium 3.7 mmol/L (3.5-5.1); Protein, Total 7.5 g/dL (6.4-8.2); Sodium Level 142 mmol/L (136-145)
== END ==
PROVIDERS: Family Provider Family Medicine; PCP Family Medicine; Referring Provider Internal Medicine Rheumatology; Visit Provider Internal Medicine Rheumatology
DX: M06.09 Rheumatoid arthritis without rheumatoid factor, multiple sites (principal); M16.0 Bilateral primary osteoarthritis of hip; I10 Essential (primary) hypertension; E78.5 Hyperlipidemia, unspecified; J45.909 Unspecified asthma, uncomplicated; F41.9 Anxiety disorder, unspecified; F32.89 Other specified depressive episodes; F90.9 Attention-deficit hyperactivity disorder, unspecified type
CPT/HCPCS: 36415; 80053; 85025

== ENCOUNTER 2018-08-02 15:30 | Outpatient (RCR) | payer BC, MEDICAID, SELFPAY ==
--- NOTE | 2018-06-07 10:27 | HP.OTEVAL ---
Patient's Visit Information LELE AUGUSTE is a 63 year old F, referred to Occupational Therapy by Ari Sinclair, with a diagnosis of CTS right. Date of Evaluation: 06/07/18 Occupational Therapist: Taya Mora, OTR/Konstantin, CHT - Subjective Subjective: Pt returns states she has new dx for RA and is on new medication-to assist with her new RA dx. Pt attends this OT eval-with dx of right CTS and trigger fingers- pt returns following a right trigger finger relase of thumb and MFand RF as well as CTR, sx was performed in may. pt is about 3 weeks s/p. pt is having difficulty with all BAdls and IADLS due to incision sorness and weakness. pt would like to return to her PLOF. - Pain right hand 2 Pain Intensity Range: 0, 5 - ROM ROM Comments: pt demo the ability to form a composite fist- - Strength Kitchen Lead: right 10# left 45# Lateral Pinch: right 6# left 8# Tripod Pinch: right 2# left 10# - Sensation Sensation Comments: CTS have resolved but pt states she does have numbness around her CT incision - DASH-Disabilities of Arm, Shoulder& Hand DASH Sum: 81 - Goals Goal:: PT will demo an increase in staff development coordinator rn strength by 20# to increase independent with basic occupations of daily living to return pt to PLOF by D/C. Pt will demo an increase in lateral and tripod pinch by 2# to increase pts independent with opening baggies, containers at PLOF by D/C. Goal:: Pt will demo understanding of scar mtg. by end of 2nd session to increase tissue extensibility to limit scar adhesions and allow full tendons function by d/c. Goal:: Pt will demo understanding of joint protection and ergonomics when performing BADLs and IADLs by d/c Goal:: pt will report the ability to perform all BADLs and IADLs at a IND. level with no limitation in strength by d/c. - Rehabilitation General Assessment: Pt currenty about 3 weeks s/p following right CTR and right thumb.MF trigger finger release. pt incisions look good- some dry pealing skin, but no indication of scar adhesions- pt demo with weak right staff development coordinator rn and pinch strength that limits her ind. with BADLs and IADLS. Pt still demo with slight thumb trigger- possible due to inflamation from sx. pt would benefit from skilled OT services 2-3 x week for 4 weeks to increase pts functional strength ed. her on joint protction, ad. and scar mtg. pt today was ed. on ROM ex. Pt is currently on 20# lift restriction and no repetitive motion until pt is 4 weeks s/p. Therapy will challeng pts above deficits to return pt to PLOF with her ADLs and IADls. Rehabilitation Potential: Good - Anticipated Interventions Anticipated Interventions: A/AAROM/PROM, Strengthening, Scar Care, Triggerpoint Release, Desensitization, Modalities, Orthoses, Joint Protection/Energy Conservation, Ergonomic Education - Visit Plan Frequency: 2-3x /Week Duration: 4 Weeks TEXT: Thank you for the opportunity to evaluate your patient. For Medicare and Medicare HMO plans, please review the plan of care and approve it. It will need to be FAXED BACK to us at [phone] for Medicare purposes. Please let me know if there are questions or concerns regarding this plan of care. Physician Signature: Date:
--- NOTE | 2018-06-07 10:32 | HP.OTEVAL ---
Patient's Visit Information LELE AUGUSTE is a 63 year old F, referred to Occupational Therapy by Ari Sinclair, with a diagnosis of CTS right. Date of Evaluation: 06/07/18 Occupational Therapist: Taya Mora, OTR/Konstantin, CHT - Subjective Subjective: Pt returns states she has new dx for RA and is on new medication-to assist with her new RA dx. Pt attends this OT eval-with dx of right CTS and trigger fingers- pt returns following a right trigger finger relase of thumb and MFand RF as well as CTR, sx was performed in may. pt is about 3 weeks s/p. pt is having difficulty with all BAdls and IADLS due to incision sorness and weakness. pt would like to return to her PLOF. - Pain right hand 2 Pain Intensity Range: 0, 5 - ROM ROM Comments: pt demo the ability to form a composite fist- - Strength Dry Cleaner Hand: right 10# left 45# Lateral Pinch: right 6# left 8# Tripod Pinch: right 2# left 10# - Sensation Sensation Comments: CTS have resolved but pt states she does have numbness around her CT incision - DASH-Disabilities of Arm, Shoulder& Hand DASH Sum: 81 - Goals Goal:: PT will demo an increase in clinical trials assistant strength by 20# to increase independent with basic occupations of daily living to return pt to PLOF by D/C. Pt will demo an increase in lateral and tripod pinch by 2# to increase pts independent with opening baggies, containers at PLOF by D/C. Goal:: Pt will report pain no greater than 1/10 with use of affected hand with BADLs and IADLs by d/c. Goal:: Pt will demo understanding of scar mtg. by end of 2nd session to increase tissue extensibility to limit scar adhesions and allow full tendons function by d/c. Goal:: Pt will demo understanding of joint protection and ergonomics when performing BADLs and IADLs by d/c Goal:: pt will report the ability to perform all BADLs and IADLs at a IND. level with no limitation in strength by d/c. - Rehabilitation General Assessment: Pt currenty about 3 weeks s/p following right CTR and right thumb.MF trigger finger release. pt incisions look good- some dry pealing skin, but no indication of scar adhesions- pt demo with weak right clinical trials assistant and pinch strength that limits her ind. with BADLs and IADLS. Pt still demo with slight thumb trigger- possible due to inflamation from sx. pt would benefit from skilled OT services 2-3 x week for 4 weeks to increase pts functional strength ed. her on joint protction, ad. and scar mtg. pt today was ed. on ROM ex. Pt is currently on 20# lift restriction and no repetitive motion until pt is 4 weeks s/p. Therapy will challeng pts above deficits to return pt to PLOF with her ADLs and IADls. Rehabilitation Potential: Good - Anticipated Interventions Anticipated Interventions: A/AAROM/PROM, Strengthening, Scar Care, Triggerpoint Release, Desensitization, Modalities, Orthoses, Joint Protection/Energy Conservation, Ergonomic Education - Visit Plan Frequency: 2-3x /Week Duration: 4 Weeks TEXT: Thank you for the opportunity to evaluate your patient. For Medicare and Medicare HMO plans, please review the plan of care and approve it. It will need to be FAXED BACK to us at [phone] for Medicare purposes. Please let me know if there are questions or concerns regarding this plan of care. Physician Signature: Date:
--- NOTE | 2018-08-03 08:15 | HP.OTDCSUM_ITS ---
HP - OT D/C Summary It has been my pleasure to treat LELE AUGUSTE under orders from Ari Sinclair, for the diagnosis of CTS right for a total of 11 visit(s). Please see the following information for a summary of their discharge status. - Overall Improvement % Improvement: 80 - Objective Objective/Function: overage shortage and damage clerk 25# in R and 40# in the L. lateral 13# in R and 13# in L. tripod 10# in R and 14# in L. pt has made good gains with her recovery from her Trigger finger release/ CTR. - Goals Patient Goals: Regain Strength, Return to Work, Improve Fine Motor Skills, Use Hand/Wrist/Arm Normally Again, Be More Independent in ADLS Goal:: PT will demo an increase in overage shortage and damage clerk strength by 20# to increase independent with basic occupations of daily living to return pt to PLOF by D/C. Pt will demo an increase in lateral and tripod pinch by 2# to increase pts independent with opening baggies, containers at PLOF by D/C. Goal:: Pt will report pain no greater than 1/10 with use of affected hand with BADLs and IADLs by d/c. Goal:: Pt will demo understanding of scar mtg. by end of 2nd session to increase tissue extensibility to limit scar adhesions and allow full tendons function by d/c. Goal:: Pt will demo understanding of joint protection and ergonomics when performing BADLs and IADLs by d/c Goal:: pt will report the ability to perform all BADLs and IADLs at a IND. level with no limitation in strength by d/c. - Plan Plan: strengthening, followed by US and scar management, cont. BTE program - D/C Information Discharge Comments: Patient overall strength and ROM increased and pt. reported increased I with ADL's. pt. cont. to have joint pain all throughout her body and is seeking a rhematologist for pain management. pt. demo no remaining concerns from trigger finger and carpal tunnel release. pt. reports no further concerns and was d/c with HEP. If there are questions or concerns regarding this patient's occupational therapy, please fell free to call me at [phone]. Thank you for the refer ral of this patient. Sincerely, Taya Mora, OTR/L, CHT
== END 2018-08-02 19:00 | disposition home or self-care (01) ==
LOC: OT 15:30
PROVIDERS: Family Provider Family Medicine; PCP Family Medicine; Referring Provider Orthopaedic Surgery; Visit Provider Orthopaedic Surgery
DX: G56.01 Carpal tunnel syndrome, right upper limb (principal)
CPT/HCPCS: 97035; 97110; 97140; 97166; 97530

== ENCOUNTER → 2018-08-18 09:58 | Outpatient (CLI) | payer BC, MEDICAID, SELFPAY ==
[2018-05-21 09:07] VITALS: BMI 25.4
--- NOTE | 2018-08-18 10:00 | BI_ITS ---
MAMMOGRAPHY - BILATERAL SCREENING REASON FOR EXAM: Female, 63 years old. Routine annual screening examination. PERTINENT HISTORY: Non-contributory. TECHNIQUE: Digital bilateral breast natali (3D mammographic acquisition) in the CC and MLO projections. 2-D mediolateral oblique (MLO) and craniocaudad (CC) views of both breasts were obtained. CAD: Full Field Digital Mammography with Computer Added Detection was performed. COMPARISON: Comparison is made with prior study dated August 15, 2017 and November 24, 2015. FINDINGS: Breast Composition: The breasts are heterogeneously dense, which may obscure small masses. There are no dominant masses or suspicious calcifications. Stable small benign-appearing bilateral axillary lymph nodes. No other significant abnormalities are identified. There has been no significant change since the prior study. BI/SCREENING MAMM (CAD), BILAT IMPRESSION: Stable bilateral screening mammogram. Yearly follow-up mammogram recommended. (A) ASSESSMENT CATEGORY: BIRADS Category 2: Benign. A letter regarding these results will be sent to the patient by the facility within 30 days. Approximately 10% of breast cancers are not detected by mammography. A normal mammogram should not delay biopsy of a clinically suspicious abnormality. [id number] Electronically Signed: Sukhjinder Doss MD at 8:49 EST Tel [phone], Service support ,
--- OUTSIDE RECORDS SUMMARY | 2018-11-21 09:24 | XMS RPT_ITS ---
:1955 Author Organization OHIP Support Name Relationship Address Phone NIKOLAS ARANDA Unavailable [address] + [address] [place] [address] OLIVER, SHRUTHI Unavailable [address] + [place] [address] R Unavailable Unavailable Unavailable CROSS NIKOLAS Unavailable [address] + [address] [place] [address] OLIVER, SHRUTHI Unavailable [address] + [place] [address] R Unavailable Unavailable Unavailable CROSS, NIKOLAS Unavailable [address] + [address] [place] [address] OLIVER, SHRUTHI Unavailable [address] + [place] [address] R Unavailable Unavailable Unavailable CROSS, NIKOLAS Unavailable [address] + [address] [place] [address] LOIVER, SHRUTHI Unavailable [address] + [place] [address] R Unavailable Unavailable Unavailable CROSS, NIKOLAS Unavailable [address] + [address] [place] [address] OLIVER, SHRUTHI Unavailable [address] + [place] [address] R Unavailable Unavailable Unavailable CROSS, NIKOLAS Unavailable [address] + [address] [place] [address] OLIVER, SHRUTHI Unavailable [address] + [place] [address] R Unavailable Unavailable Unavailable CROSS, NIKOLAS Unavailable [address] + [address] [place] [address] OLIVER, SHRUTHI Unavailable [address] + [place] [address] R Unavailable Unavailable Unavailable NIKOLAS ARANDA Unavailable [address] + [address] [place] [address] OLIVERSHRUTHI Unavailable [address] + [place] [address] R Unavailable Unavailable Unavailable SHRUTHI OLIVER Unavailable [address] + [place] [address] R Unavailable Unavailable Unavailable HILDA AUGUSTE Unavailable [address] + [place] [address] OLIVERSHRUTHI PINON Unavailable [address] + [place] [address] R Unavailable Unavailable Unavailable HILDA AUGUSTE Unavailable [address] + [place] [address] OLIVERSHRUTHI PINON Unavailable [address] + [place] [address] R Unavailable Unavailable Unavailable HILDA AUGUSTE Unavailable [address] + [place] [address] OLIVERSHRUTHI Unavailable [address] + [place] [address] R Unavailable Unavailable Unavailable HILDA AUGUSTE Unavailable [address] + [place] [address] OLIVERSHRUTHI PINON Unavailable [address] + [place] [address] R Unavailable Unavailable Unavailable HILDA AUGUSTE Unavailable [address] + [place] [address] OLIVERSHRUTHI PINON Unavailable [address] + [place] [address] R Unavailable Unavailable Unavailable HILDA AUGUSTE Unavailable [address] + [place] [address] OLIVERSHRUTHI PINON Unavailable [address] + [place] [address] R Unavailable Unavailable Unavailable HILDA AUGUSTE Unavailable [address] + [place] [address] Care Team Providers Name Role Phone Kvng Brown Attending Unavailable Kvng Brown Referring Unavailable Malys, Barbra Primary Care Unavailable Chi Gray Attending Unavailable Knapic, Ari Referring Unavailable Malys, Barbra Attending Unavailable Malys, Barbra Primary Care Unavailable Malys, Barbra Referring Unavailable Knapic, Ari Attending Unavailable Knapic, Ari Referring Unavailable Malys, Barbra Primary Care Unavailable Vellanki, Erica Attending Unavailable Vellanki, Erica Referring Unavailable Malys, Barbra Primary Care Unavailable Anton, Ric Attending Unavailable Anton, Ric Referring Unavailable Malys, Barbra Primary Care Unavailable Anton, Ric Attending Unavailable Anton, Ric Referring Unavailable Malys, Barbra Primary Care Unavailable Knapic, Ari Attending Unavailable Knapic, Ari Referring Unavailable Malys, Barbra Primary Care Unavailable Vellanki, Erica Attending Unavailable Vellanki, Erica Referring Unavailable Malys, Barbra Primary Care Unavailable Anton, Ric Attending Unavailable Anton, Ric Referring Unavailable Malys, Barbra Primary Care Unavailable Kvng Brown Attending Unavailable Malys, Barbra Primary Care Unavailable StephanieKvng velarde Referring Unavailable Kvng Brown Attending Unavailable Malys, Barbra Primary Care Unavailable Anton, Ric Attending Unavailable Anton, Ric Referring Unavailable Malys, Barbra Primary Care Unavailable Knapic, Ari Attending Unavailable Knapic, Ari Referring Unavailable Malys, Barbra Primary Care Unavailable Knapic, Ari Attending Unavailable Knapic, Ari Referring Unavailable Malys, Barbra Primary Care Unavailable PROBLEMS PROBLEMS DATE TYPE CONDITION / CODE ATTENDING STATUS SOURCE 08/07/2018 Unknown G56.01 - Carpal tunnel Knapic, Active [place] syndrome, right upper [facility] limb / G56.01(ICD-10) Hospital Repository 07/30/2018 Unknown I10 - Essential Vellanki, Active [place] (primary) hypertension [facility] / I10(ICD-10) Hospital Repository 07/30/2018 Unknown M06.09 - Rheumatoid Vellanki, Active [place] arthritis without [facility] rheumatoid factor, [facility] sites / Repository M06.09(ICD-10) 07/30/2018 Unknown 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, Active [place] primary osteoarthritis [facility] of hip / M16.0(ICD-10) Hospital Repository 07/30/2018 Unknown E78.5 - Vellanki, Active [place] Hyperlipidemia, [facility] unspecified / Hospital E78.5(ICD-10) Repository 07/30/2018 Unknown J45.909 - Unspecified Vellanki, Active [place] asthma, uncomplicated [facility] / J45.909(ICD-10) Hospital Repository 07/30/2018 Unknown F41.9 - Anxiety Vellanki, Active [place] disorder, unspecified [facility] / F41.9(ICD-10) Hospital Repository 07/30/2018 Unknown F32.89 - Other Vellanki, Active [place] specified depressive [facility] episodes / Hospital F32.89(ICD-10) Repository 07/30/2018 Unknown F90.9 - Vellanki, Active [place] Attention-deficit [facility] hyperactivity Hospital disorder, unspecified Repository type / F90.9(ICD-10) 06/15/2018 Unknown M54.5 - Low back pain Anton, Active [place] / M54.5(ICD-10) [facility] Repository 02/02/2018 Unknown M25.50 - Pain in Kvng Brown Active [place] unspecified joint / Community M25.50(ICD-10) Hospital Repository 05/02/2018 Unknown S43.421D - Sprain of Knapic, Active [place] right rotator cuff [facility] capsule, subsequent Hospital encounter / Repository S43.421D(ICD-10) 01/12/2018 Unknown R94.31 - Abnormal [place], Active [place] electrocardiogram [facility] [ECG] [EKG] / Hospital R94.31(ICD-10) Repository PROCEDURES PROCEDURES No Procedure Records FoundRESULTS RESULTS SCREENING MAMM (CAD), Observed: 08/18/2018 Status: F Source: [place] BILAT 10:00 AM [facility] HOSPITAL REPOSITORY [facility] Imaging Services [address] [place] [address] SCREENING MAMM (CAD), BILAT MR#: [id number] Acct: [id number] Name: LELE GALICIA Rep #: [id number] : 1955 F 63 From: Sukhjinder Doss MD PCP: Barbra Meng DO Status: REG CLI Study: SCREENING MAMM (CAD), BILAT Date of Exam: 08/18/18 Exam# [id number] Ordering Dr: Kvng Brown DO MAMMOGRAPHY - BILATERAL SCREENING REASON FOR EXAM: Female, 63 years old. Routine annual screening examination. PERTINENT HISTORY: Non-contributory. TECHNIQUE: Digital bilateral breast natali (3D mammographic acquisition) in the CC and MLO projections. 2-D mediolateral oblique (MLO) and craniocaudad (CC) views of both breasts were obtained. CAD: Full Field Digital Mammography with Computer Added Detection was performed. COMPARISON: Comparison is made with prior study dated August 15, 2017 and November 24, 2015. FINDINGS: Breast Composition: The breasts are heterogeneously dense, which may obscure small masses. There are no dominant masses or suspicious calcifications. Stable small benign-appearing bilateral axillary lymph nodes. No other significant abnormalities are identified. There has been no significant change since the prior study. BI/SCREENING MAMM (CAD), BILAT IMPRESSION: Stable bilateral screening mammogram. Yearly follow-up mammogram recommended. (A) ASSESSMENT CATEGORY: BIRADS Category 2: Benign. A letter regarding these results will be sent to the patient by the facility within 30 days. Approximately 10% of breast cancers are not detected by mammography. A normal mammogram should not delay biopsy of a clinically suspicious abnormality. [id number] Electronically Signed: Sukhjinder Doss MD at 8:49 EST Tel [phone], Service support , CC: Barbra Meng DO; Kvng Brown DO Dinker: Signed OT D/C SUMMARY Observed: 08/03/2018 Status: F Source: [place] 11:06 AM [facility] [place] [address] Fax REHABILITATION SERVICES DISCHARGE SUMMARY MR#: [id number] Acct: [id number] Name: LELE GALICIA Rep #: [id number] : 1955 63 From: Taya Mora OTR/L, CHT Referring DrAba: Ari Sinclair DO Status: REG RCR Eval Date: Discharge Date: HP - OT D/C Summary It has been my pleasure to treat LELE AUGUSTE under orders from Ari Sinclair, for the diagnosis of CTS right for a total of 11 visit(s). Please see the following information for a summary of their discharge status. - Overall Improvement % Improvement: 80 - Objective Objective/Function: home therapy clinician 25# in R and 40# in the L. lateral 13# in R and 13# in L. tripod 10# in R and 14# in L. pt has made good gains with her recovery from her Trigger finger release/ CTR. - Goals Patient Goals: Regain Strength, Return to Work, Improve Fine Motor Skills, Use Hand/Wrist/Arm Normally Again, Be More Independent in ADLS Goal:: PT will demo an increase in home therapy clinician strength by 20# to increase independent with basic occupations of daily living to return pt to PLOF by D/C. Pt will demo an increase in lateral and tripod pinch by 2# to increase pts independent with opening baggies, containers at PLOF by D/C. Goal:: Pt will report pain no greater than 1/10 with use of affected hand with BADLs and IADLs by d/c. Goal:: Pt will demo understanding of scar mtg. by end of 2nd session to increase tissue extensibility to limit scar adhesions and allow full tendons function by d/c. Goal:: Pt will demo understanding of joint protection and ergonomics when performing BADLs and IADLs by d/c Goal:: pt will report the ability to perform all BADLs and IADLs at a IND. level with no limitation in strength by d/c. - Plan Plan: strengthening, followed by US and scar management, cont. BTE program - D/C Information Discharge Comments: Patient overall strength and ROM increased and pt. reported increased I with ADL's. pt. cont. to have joint pain all throughout her body and is seeking a rhematologist for pain management. pt. demo no remaining concerns from trigger finger and carpal tunnel release. pt. reports no further concerns and was d/c with HEP. If there are questions or concerns regarding this patient's occupational therapy, please fell free to call me at [phone]. Thank you for the referral of this patient. Sincerely, Taya Mora, OTR/L, CHT <Electronically signed by Taya Mora OTR/L, CHT> 08/03/18 1106 CC: Barbra Meng DO; Ari Sinclair DO MK Signed CBC W/DIFF, AUTOMATED Collected: 07/30/2018 Status: F Source: [place] 1:39 PM [facility] TYPE CODE TESTS RESULT OUT OF RANGE REFERENCE UNITS LAB L100.1000 4.4-11.0 K/mm3 Normal WBC 7.8 LAB L100.1200 4.2-5.4 M/mm3 Normal RBC 4.77 LAB L100.1300 12.0-15.0 g/dl Normal HGB 14.1 LAB L100.1400 37-47 % Normal HCT 44.3 LAB L100.1500 81-99 fL Normal MCV 92.9 LAB L100.1600 27.0-32.0 pg Normal MCH 29.6 LAB L100.1700 32-36 g/gl Low MCHC 31.8 LAB L100.1810 11.6-14.6 % High RDW CV 15.1 LAB L100.1820 35.1-43.9 fl High RDW SD 50.3 LAB L100.1900 150-450 K/mm3 Normal PLT 341 LAB L100.2000 6.2-12.0 fl Normal MPV 10.7 LAB L100.2100 47-70 % Normal NEUT% 50.6 LAB L100.2200 19-41 % Normal LY% 39.5 LAB L100.2300 0-10 % Normal MONO% 6.7 LAB L100.2400 0-5 % Normal EO% 2.2 LAB L100.2500 0-1 % Normal BASO% 0.6 LAB L100.2550 0.0-0.9 % Normal IM GRAN % 0.400 Result Comment: IG% - Immature Granulocytes (promyelocytes, myelocytes and metamyelocytes) > 1% indicates that a LEFT SHIFT is Present. LAB L100.2620 2.0-7.7 X10 3/uL Normal Absolute Neut 3.9 LAB L100.2720 0.83-4.51 X10 3/ul Normal Absolute Lymph 3.08 Performed By: #### L100.0100 #### [facility] [address] [place], [address] COMPREHENSIVE METABOLIC Collected: 07/30/2018 Status: F Source: [place] 1:39 PM [facility] TYPE CODE TESTS RESULT OUT OF RANGE REFERENCE UNITS LAB L501.0100 74-106 mg/dL Normal GLU 95 Result Comment: Please note revised GLUCOSE reference range effective 2017. LAB L501.1000 7-18 mg/dL Normal BUN 18 LAB L501.1100 0.55-1.02 mg/dL Normal CREAT,SERUM 0.78 Result Comment: The validity of the calculated GFR AND GFRAA in patients over 70 years has not been determined. Clinical correlation is essential. LAB L501.1110 >60 mL/min Normal EST GFR 79 Result Comment: Non- GFR Calc LAB L501.1115 >60 mL/min Normal EST GFR - AA 96 Result Comment: GFR Calc LAB L501.1300 10-20 RATIO High BUN/CRE 23.1 LAB L501.1500 6.4-8.2 g/dL T Normal PROT 7.5 LAB L501.1800 3.2-5.0 g/dL Normal ALB 3.6 LAB L501.1950 2.2-4.2 g/dL Normal GLOB 3.9 LAB L501.2000 0.9-2.4 RATIO Normal A/G 0.9 LAB L501.2200 8.5-10.1 mg/dL CA Normal 9.1 LAB L501.4100 15-37 U/L Normal AST 16 LAB L501.4305 45-117 U/L Normal ALK P 116 LAB L501.4405 13-56 U/L Normal ALT 28 LAB L501.4600 0.20-1.00 mg/dL T Normal BILI 0.40 LAB L501.5300 136-145 mmol/L NA Normal 142 LAB L501.5600 3.5-5.1 mmol/L K Normal 3.7 LAB L501.5900 98-107 mmol/L CL Normal 105 LAB L501.6100 21.0-32.0 mmol/L Normal CO2 28.0 LAB L501.6200 5-15 Normal GAP 9 Performed By: #### L500.4050 #### [facility] [address] [place], [address] SHOULDER MIN 2 VIEWS Observed: 07/04/2018 Status: F Source: [place] 3:41 PM [facility] HOSPITAL REPOSITORY [facility] Imaging Services [address] [place] [address] Shoulder min 2 Views MR#: [id number] Acct: [id number] Name: LELE GALICIA Rep #: [id number] : 1955 F 63 From: Juan Mackenzie MD PCP: Barbra Meng DO Status: REG CLI Study: Shoulder min 2 Views Date of Exam: 07/04/18 Exam# [id number] Ordering Dr: Ric Walton MD STUDY: X-RAY - LEFT SHOULDER REASON FOR EXAM: Female, 63 years old. Pain TECHNIQUE: 4 view(s) of the shoulder. COMPARISON: None. FINDINGS: There is mild degenerative arthrosis of the glenohumeral articulation. There has been previous resection of the distal clavicle Normal acromion. Evidence of previous rotator cuff surgery Normal humeral head and visualized proximal humerus. The soft tissue structures are unremarkable. Normal visualized pulmonary apex. RAD/Shoulder min 2 Views IMPRESSION: Degenerative arthrosis Previous rotator cuff surgery Previous resection of the distal clavicle Electronically Signed: Brayan Mackenzie MD at 13:45 EDT , Service support , CC: Ric Walton; Barbra Meng DO Dinker: Signed OT GENERAL EVALUATION Observed: 06/08/2018 Status: F Source: [place] 7:51 AM [facility] [address] [place], [place] [address] Fax REHABILITATION SERVICES INITIAL EVALUATION MR#: [id number] Acct: [id number] Name: LELE GALICIA Rep #: [id number] : 1955 63 From: Taya Mora OTR/Konstantin, CHT Referring Dr.: Ari Sinclair DO Status: REG RCR Insurance: ANTHEM Eval Date: [facility] Patient's Visit Information LELE AUGUSTE is a 63 year old F, referred to Occupational Therapy by Ari Sinclair, with a diagnosis of CTS right. Date of Evaluation: 06/07/18 Occupational Therapist: Taya Mora, OTR/Konstantin, CHT - Subjective Subjective: Pt returns states she has new dx for RA and is on new medication-to assist with her new RA dx. Pt attends this OT eval-with dx of right CTS and trigger fingers- pt returns following a right trigger finger relase of thumb and MFand RF as well as CTR, sx was performed in may. pt is about 3 weeks s/p. pt is having difficulty with all BAdls and IADLS due to incision sorness and weakness. pt would like to return to her PLOF. - Pain right hand 2 Pain Intensity Range: 0, 5 - ROM ROM Comments: pt demo the ability to form a composite fist- - Strength Gallery Director: right 10# left 45# Lateral Pinch: right 6# left 8# Tripod Pinch: right 2# left 10# - Sensation Sensation Comments: CTS have resolved but pt states she does have numbness around her CT incision - DASH-Disabilities of Arm, Shoulder AND Hand DASH Sum: 81 - Goals Goal:: PT will demo an increase in home therapy clinician strength by 20# to increase independent with basic occupations of daily living to return pt to PLOF by D/C. Pt will demo an increase in lateral and tripod pinch by 2# to increase pts independent with opening baggies, containers at PLOF by D/C. Goal:: Pt will report pain no greater than 1/10 with use of affected hand with BADLs and IADLs by d/c. Goal:: Pt will demo understanding of scar mtg. by end of 2nd session to increase tissue extensibility to limit scar adhesions and allow full tendons function by d/c. Goal:: Pt will demo understanding of joint protection and ergonomics when performing BADLs and IADLs by d/c Goal:: pt will report the ability to perform all BADLs and IADLs at a IND. level with no limitation in strength by d/c. - Rehabilitation General Assessment: Pt currenty about 3 weeks s/p following right CTR and right thumb.MF trigger finger release. pt incisions look good- some dry pealing skin, but no indication of scar adhesions- pt demo with weak right home therapy clinician and pinch strength that limits her ind. with BADLs and IADLS. Pt still demo with slight thumb trigger- possible due to inflamation from sx. pt would benefit from skilled OT services 2-3 x week for 4 weeks to increase pts functional strength ed. her on joint protction, ad. and scar mtg. pt today was ed. on ROM ex. Pt is currently on 20# lift restriction and no repetitive motion until pt is 4 weeks s/p. Therapy will challeng pts above deficits to return pt to PLOF with her ADLs and IADls. Rehabilitation Potential: Good - Anticipated Interventions Anticipated Interventions: A/AAROM/PROM, Strengthening, Scar Care, Triggerpoint Release, Desensitization, Modalities, Orthoses, Joint Protection/Energy Conservation, Ergonomic Education - Visit Plan Frequency: 2-3x /Week Duration: 4 Weeks TEXT: Thank you for the opportunity to evaluate your patient. For Medicare and Medicare HMO plans, please review the plan of care and approve it. It will need to be FAXED BACK to us at [phone] for Medicare purposes. Please let me know if there are questions or concerns regarding this plan of care. Physician Signature: Date: <Electronically signed by Taya MALHOTRA/Konstantin, CHT> 06/08/18 0751 CC: Barbra Meng DO; Ari Sinclair DO MK Signed For Medicare only, by signing this I certify the plan of care. Physicians Signature Date OPERATIVE REPORT Observed: 05/21/2018 Status: F Source: [place] 2:54 PM [facility] Medical Records Department [address] [place] [address] Operative Report 05/21/18 1452 MR#: [id number] Acct: [id number] Name: LELE GALICIA Rep #: [id number] : 1955 62 From: Ric Walton MD PCP: Barbra Meng DO Status: [facility] Location: [facility] Problem List (1) Spondylosis of 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 myelopathy or radiculopathy Status: Chronic (2) Degeneration, intervertebral disc, lumbosacral Status: Chronic Report of Operation Date of Procedure: 05/21/18 Pre-Operative Diagnosis: Lumbosacral spondylosis, lumbosacral degenerative disc disease, lumbar facet arthropathy Post-Operative Diagnosis: Lumbosacral spondylosis, lumbosacral degenerative disc disease, lumbar facet arthropathy Surgery/Procedure Performed:: Bilateral lumbar facet steroid injection L4, L5, S1 Description of Surgical Findings:: PROCEDURE: Bilateral lumbar facet steroid injection L4, L5, S1 PREOPERATIVE DIAGNOSIS: Lumbosacral spondylosis, lumbosacral degenerative disc disease, and lumbar facet arthropathy POSTOPERATIVE DIAGNOSIS: Lumbosacral spondylosis, lumbosacral degenerative disc disease, and lumbar facet arthropathy ANESTHESIA: MAC COMPLICATIONS: None BLOOD LOSS: Minimal PROCEDURE IN DETAIL: History and physical today was reviewed. Risks and benefits of the procedure were explained. The patient understood, agreed to our procedure, and informed consent was obtained. IV inserted per routine protocol. The patient was taken to the operating room, placed in a prone position with a pillow positioned underneath the abdomen. The lower back was prepped and draped in a sterile fashion using iodine x3. Under fluoroscopy guidance, on AP view, L3 through S1 vertebral bodies were visualized. Skin and subcutaneous tissues were anesthetized with approximately 5 mL of 1% lidocaine using a 25-gauge regular needle. Under direct visualization with fluoroscopy at approximately 25-degree angle, starting on the right L4, ending on the left L4, passing through the L5 and S1, using a 22-gauge 3 1/2-inch spinal needle, the needle was advanced via the skin. The tip of the needle was maneuvered and directed towards the superior and medial gutter of the transverse process at the vicinity of the medial branch. Once the tip of the needle was in contact with the bone, the needle pulled approximately 2 mm off the bone. After negative aspiration of blood with CSF and confirmation of AP as well as oblique view, a total of 12 mL of preservative-free 0.25% Marcaine with 80 mg of Depo-Medrol was injection in divided doses between those 6 levels. The needles were then removed intact. The patient experienced no signs or symptoms intrathecal, intravascular injection. The patient experienced no paraesthesia. The procedure was completed without any apparent difficult, any complication. The patient appeared to tolerate well. ASSESSMENT AND PLAN: This is a 62-year-old female with lumbosacral spondylosis lumbosacral degenerative disc disease, and lumbar facet arthropathy, status post bilateral lumbar facet steroid injection L4 through S1. The patient will continue her current medications. The patient will follow in approximately 2 weeks for possible repeat of the procedure if indicated. 05/21/18 1454 <Electronically signed by Ric Walton MD> Date Ric Walton MD CC: Ric Walton; Barbra Meng DO Signed L/S SPINE MIN 4 Observed: 05/21/2018 Status: F Source: [place] VIEWS 1:48 AM [facility] Imaging Services [address] [place] [address] L/S Spine Min 4 Views MR#: [id number] Acct: [id number] Name: LELE GALICIA Rep #: [id number] : 1955 F 62 From: Sukhjinder Doss MD PCP: Barbra Meng DO Status: DEP [facility] Study: L/S Spine Min 4 Views Date of Exam: 05/21/18 Exam# [id number] Ordering Dr: Ric Walton MD PROCEDURE: Bilateral L4 S1 facet joint block. DATE OF EXAMINATION: May 21, 2018. INDICATION: Female, 62 years old. Prior laminectomy and fusion. Back pain. FLUOROSCOPY TIME (if supplied): (0:42) minutes/seconds. 8 coned down intraoperative views were obtained. Imaging provided for bilateral L4 S1 facet joint block. RAD/L/S Spine Min 4 Views IMPRESSION: Imaging provided for bilateral L4 S1 facet joint block. Electronically Signed: Sukhjinder Doss MD at 14:27 EDT Tel [phone], Service support , CC: Ric Walton; Barbra Meng DO Dinker: Signed COMPREHENSIVE METABOLIC Collected: 04/18/2018 Status: F Source: [place] 3:51 PM [facility] TYPE CODE TESTS RESULT OUT OF RANGE REFERENCE UNITS LAB L501.0100 74-106 mg/dL High GLU 117 Result Comment: Fasting Glucose result from 100 to 125 mg/dL suggests IMPAIRED HOMEOSTASIS per A.D.A. criteria. Please note revised GLUCOSE reference range effective 2017. LAB L501.1000 7-18 mg/dL Normal BUN 18 LAB L501.1100 0.55-1.02 mg/dL Normal CREAT,SERUM 0.80 Result Comment: The validity of the calculated GFR AND GFRAA in patients over 70 years has not been determined. Clinical correlation is essential. LAB L501.1110 >60 mL/min Normal EST GFR 77 Result Comment: Non- GFR Calc LAB L501.1115 >60 mL/min Normal EST GFR - AA 93 Result Comment: GFR Calc LAB L501.1300 10-20 RATIO High BUN/CRE 22.5 LAB L501.1500 6.4-8.2 g/dL T Normal PROT 7.6 LAB L501.1800 3.2-5.0 g/dL Normal ALB 3.7 LAB L501.1950 2.2-4.2 g/dL Normal GLOB 3.9 LAB L501.2000 0.9-2.4 RATIO Normal A/G 0.9 LAB L501.2200 8.5-10.1 mg/dL CA Normal 9.1 LAB L501.4100 15-37 U/L Low AST 13 LAB L501.4305 45-117 U/L Normal ALK P 103 LAB L501.4405 13-56 U/L Normal ALT 25 LAB L501.4600 0.20-1.00 mg/dL T Normal BILI 0.20 LAB L501.5300 136-145 mmol/L NA Normal 142 LAB L501.5600 3.5-5.1 mmol/L K Normal 3.6 LAB L501.5900 98-107 mmol/L CL Normal 107 LAB L501.6100 21.0-32.0 mmol/L Normal CO2 26.0 LAB L501.6200 5-15 Normal GAP 9 Performed By: #### L500.4050 #### [facility] [address] [place] [address]. [place], [address] CBC W/DIFF, AUTOMATED Collected: 04/18/2018 Status: F Source: [place] 3:51 PM [facility] TYPE CODE TESTS RESULT OUT OF RANGE REFERENCE UNITS LAB L100.1000 4.4-11.0 K/mm3 Normal WBC 9.1 LAB L100.1200 4.2-5.4 M/mm3 Normal RBC 4.90 LAB L100.1300 12.0-15.0 g/dl Normal HGB 14.0 LAB L100.1400 37-47 % Normal HCT 45.2 LAB L100.1500 81-99 fL Normal MCV 92.2 LAB L100.1600 27.0-32.0 pg Normal MCH 28.6 LAB L100.1700 32-36 g/gl Low MCHC 31.0 LAB L100.1810 11.6-14.6 % Normal RDW CV 14.5 LAB L100.1820 35.1-43.9 fl High RDW SD 48.9 LAB L100.1900 150-450 K/mm3 Normal PLT 373 LAB L100.2000 6.2-12.0 fl Normal MPV 10.5 LAB L100.2100 47-70 % Normal NEUT% 60.0 LAB L100.2200 19-41 % Normal LY% 33.0 LAB L100.2300 0-10 % Normal MONO% 4.7 LAB L100.2400 0-5 % Normal EO% 1.5 LAB L100.2500 0-1 % Normal BASO% 0.5 LAB L100.2550 0.0-0.9 % Normal IM GRAN % 0.300 Result Comment: IG% - Immature Granulocytes (promyelocytes, myelocytes and metamyelocytes) > 1% indicates that a LEFT SHIFT is Present. LAB L100.2620 2.0-7.7 X10 3/uL Normal Absolute Neut 5.5 LAB L100.2720 0.83-4.51 X10 3/ul Normal Absolute Lymph 3.01 Performed By: #### L100.0100 #### [facility] [place], [address] ANTINUCLEAR ANTIBODIES Collected: 04/18/2018 Status: F Source: [place] DIRECT 3:51 PM [facility] TYPE CODE TESTS RESULT OUT OF RANGE REFERENCE UNITS LAB L3100.5475 Negative Normal Negative STAR-DIRECT Result Comment: Performed at: [facility] [id number] Commercial Loan Reviewer: Fady Alfaro PhD, Phone: [phone] Performed By: #### L3100.5475, L3100.9100 #### [facility] (refer to report for specific site) refer to report for address and phone number SJOGREN'S ANTIBODIES Collected: 04/18/2018 Status: F Source: [place] A/B 3:51 PM [facility] TYPE CODE TESTS RESULT OUT OF RANGE REFERENCE UNITS LAB L3100.9200 0.0-0.9 AI Normal Anti-SS-A < 0.2 LAB L3100.9300 0.0-0.9 AI Normal Anti-SS-B < 0.2 Performed By: #### L3100.5475, L3100.9100 #### [facility] (refer to report for specific site) refer to report for address and phone number HEPATITIS B SURFACE Collected: 04/18/2018 Status: F Source: [place] AG 3:51 PM [facility] TYPE CODE TESTS RESULT OUT OF RANGE REFERENCE UNITS LAB L3100.0400 Negative Normal HB Negative SURF AG Result Comment: Performed at: CB - [facility] [address] [id number] Commercial Loan Reviewer: Fady Alfaro PhD, Phone: [phone] Performed at: - [facility] [address] [id number] Commercial Loan Reviewer: Edwin Lagunas MD, Phone: [phone] Performed By: #### L3100.0390, L3100.0528, L3100.0625, L4600.0100 #### [facility] (refer to report for specific site) refer to report for address and phone number HEP B SURFACE Collected: 04/18/2018 Status: F Source: [place] ANTIBODIES 3:51 PM [facility] TYPE CODE TESTS RESULT OUT OF RANGE REFERENCE UNITS LAB L3100.0528 . Normal Hep B Non Reactive Jazmin AB Result Comment: Non Reactive: Inconsistent with immunity, less than 10 mIU/mL Reactive: Consistent with immunity, greater than 9.9 mIU/mL Performed By: #### L3100.0390, L3100.0528, L3100.0625, L4600.0100 #### [facility] (refer to report for specific site) refer to report for address and phone number HEPATITIS C ANTIBODIES Collected: 04/18/2018 Status: F Source: [place] 3:51 PM [facility] TYPE CODE TESTS RESULT OUT OF RANGE REFERENCE UNITS LAB L3100.0650 0.0-0.9 s/co ratio Normal HEP C AB 0.1 Result Comment: Negative: < 0.8 Indeterminate: 0.8 - 0.9 Positive: > 0.9 The CDC recommends that a positive HCV antibody result be followed up with a HCV Nucleic Acid Amplification test ([id number]). Performed By: #### L3100.0390, L3100.0528, L3100.0625, L4600.0100 #### [facility] (refer to report for specific site) refer to report for address and phone number CCP IGG ANTIBODIES Collected: 04/18/2018 Status: F Source: [place] 3:51 PM [facility] TYPE CODE TESTS RESULT OUT OF REFERENCE UNITS RANGE LAB L4600.0100 0-19 units High ANTI-CCP > 250 [id number] Result Comment: Negative <20 Weak positive 20 - 39 Moderate positive 40 - 59 Strong positive >59 Performed By: #### L3100.0390, L3100.0528, L3100.0625, L4600.0100 #### [facility] (refer to report for specific site) refer to report for address and phone number OPERATIVE REPORT Observed: 04/09/2018 Status: F Source: [place] 12:25 PM [facility] Medical Records Department [address] [place] [address] Operative Report 04/09/18 1222 MR#: [id number] Acct: [id number] Name: LELE GALICIA Rep #: [id number] : 1955 62 From: Ric Walton MD PCP: Barbra Meng DO Status: REG [facility] Y Location: [place] [address] Problem List (1) Degeneration, intervertebral disc, lumbosacral Status: Chronic (2) Radiculopathy of lumbosacral region Status: Chronic (3) Spinal stenosis of lumbosacral region Status: Chronic Report of Operation Date of Procedure: 04/09/18 Pre-Operative Diagnosis: Lumbosacral radiculopathy, lumbosacral degenerative disc disease, lumbosacral spinal stenosis Post-Operative Diagnosis: Lumbosacral radiculopathy, lumbosacral degenerative disc disease, lumbosacral spinal stenosis Surgery/Procedure Performed:: Caudal epidural steroid injection Description of Surgical Findings:: PROCEDURE: Caudal epidural steroid injection PREOPERATIVE DIAGNOSIS: Lumbosacral radiculopathy, lumbosacral degenerative disc disease, lumbosacral spinal stenosis POSTOPERATIVE DIAGNOSIS: Lumbosacral radiculopathy, lumbosacral degenerative disc disease, lumbosacral spinal stenosis ANESTHESIA: MAC COMPLICATIONS: None BLOOD LOSS: Minimal PROCEDURE IN DETAIL: History and physical today was reviewed. Risks and benefits of the procedure were explained. The patient understood, agreed to our procedure, and informed consent was obtained. IV inserted per routine protocol. The patient was taken to the operating room, placed in a prone position with a pillow positioned underneath the abdomen. The lower back and buttock area was prepped and draped in a sterile fashion using iodine 3 under fluoroscopy guidance a lateral view the caudal space was was identified skin and subcutaneous tissue anesthetized approximately 3 cc of 1% lidocaine using a 25- gauge regular needle. Under direct visualization fluoroscopy in a lateral view using a 22-gauge 3-1/2 inch spinal needle needle was advanced via the skin through the sacral hiatus tip of the needle passed through the sacrococcygeal ligament advanced approximately S4 area after negative aspiration for blood or CSF a total of 3 cc of contrast were injected to confirm correct placement of the needle as well as cephalad spread the spread was followed to approximately L5 area after confirmation of AP as well as lateral view and repeated negative aspiration a total of 15 cc of preservative free 0.125% Marcaine with 80 mg of Depo-Medrol were injected easily , the needles were then removed intact. The patient experienced no signs or symptoms intrathecal, intravascular injection. The patient experienced no paraesthesia. The procedure was completed without any apparent difficult, any complication. The patient appeared to tolerate well. ASSESSMENT AND PLAN: This is a 62-year-old female with lumbosacral radiculopathy, lumbosacral degenerative disc disease, lumbosacral spinal stenosis status post caudal epidural steroid injection, the patient will continue her current medications. The patient will follow in approximately 2 weeks for possible repeat of the procedure if indicated. 04/09/18 1225 <Electronically signed by Ric Walton MD> Date Ric Walton MD CC: Ric Walton; Barbra Meng DO Signed FLUOR GUIDANCE FOR Observed: 04/09/2018 Status: F Source: [place] SPINE INJ 5:22 AM [facility] Imaging Services [address] [place] [address] Fluor Guidance for Spine Inj MR#: [id number] Acct: [id number] Name: CHANTELL AUGUTSELELE Norris Rep #: [id number] : 1955 F 62 From: Sukhjinder Doss MD PCP: Barbra Meng DO Status: [facility] Study: Fluor Guidance for Spine Inj Date of Exam: 04/09/18 Exam# [id number] Ordering Dr: Ric Walton MD PROCEDURE: Caudal block. DATE OF EXAMINATION: April 09, 2018. INDICATION: Female, 62 years old. Chronic low back pain. FLUOROSCOPY TIME (if supplied): (0:15) minutes/seconds Fluoroscopic imaging was provided for caudal block. The spinal needle is seen along the posterior inferior aspect of the sacrum. RAD/Fluor Guidance for Spine Inj IMPRESSION: Fluoroscopic services provided for caudal block. Electronically Signed: Sukhjinder Doss MD at 11:27 EDT Tel [phone], Service support , CC: Ric Walton; Barbra Meng DO Dinker: Signed CBC W/DIFF, AUTOMATED Collected: 03/26/2018 Status: F Source: [place] 12:41 PM [facility] TYPE CODE TESTS RESULT OUT OF RANGE REFERENCE UNITS LAB L100.1000 4.4-11.0 K/mm3 Normal WBC 6.9 LAB L100.1200 4.2-5.4 M/mm3 Normal RBC 4.69 LAB L100.1300 12.0-15.0 g/dl Normal HGB 13.9 LAB L100.1400 37-47 % Normal HCT 42.4 LAB L100.1500 81-99 fL Normal MCV 90.4 LAB L100.1600 27.0-32.0 pg Normal MCH 29.6 LAB L100.1700 32-36 g/gl Normal MCHC 32.8 LAB L100.1810 11.6-14.6 % High RDW CV 14.9 LAB L100.1820 35.1-43.9 fl High RDW SD 48.8 LAB L100.1900 150-450 K/mm3 Normal PLT 284 LAB L100.2000 6.2-12.0 fl Normal MPV 10.5 LAB L100.2100 47-70 % Normal NEUT% 57.7 LAB L100.2200 19-41 % Normal LY% 28.7 LAB L100.2300 0-10 % Normal MONO% 7.9 LAB L100.2400 0-5 % High EO% 5.2 LAB L100.2500 0-1 % Normal BASO% 0.4 LAB L100.2550 0.0-0.9 % Normal IM GRAN % 0.100 Result Comment: IG% - Immature Granulocytes (promyelocytes, myelocytes and metamyelocytes) > 1% indicates that a LEFT SHIFT is Present. LAB L100.2620 2.0-7.7 X10 3/uL Normal Absolute Neut 4.0 LAB L100.2720 0.83-4.51 X10 3/ul Normal Absolute Lymph 1.99 Performed By: #### L100.0100, L101.9900 #### [facility] [address] [place], [address] ERYTHROCYTE SED RATE Collected: 03/26/2018 Status: F Source: [place] 12:41 PM [facility] TYPE CODE TESTS RESULT OUT OF RANGE REFERENCE UNITS LAB L102.0000 0-30 mm/hr High SED RATE 39 Performed By: #### L100.0100, L101.9900 #### [facility] [address] [place], [address] VITAMIN D,25 HYDROXY Collected: 03/26/2018 Status: F Source: [place] 12:41 PM [facility] TYPE CODE TESTS RESULT OUT OF RANGE REFERENCE UNITS LAB L506.1000 29.95-100.01 ng/mL Normal Vitamin D 37.1 25-OH Result Comment: Vitamin D 25(OH) Status Range Deficiency <20 ng/mL (50nmol/L) Insuffciency 20 - 30 ng/mL (50 - 75 nmol/L) Sufficiency 30 - 100 ng/mL (75 - 250 nmol/L) Toxicity >100 ng/mL (>250 nmol/L) Performed By: #### L506.1000 #### [facility] [address] [place], [address] COMPREHENSIVE METABOLIC Collected: 03/26/2018 Status: F Source: [facility] 12:41 PM [facility] TYPE CODE TESTS RESULT OUT OF RANGE REFERENCE UNITS LAB L501.0100 74-106 mg/dL Normal GLU 97 Result Comment: Please note revised GLUCOSE reference range effective 2017. LAB L501.1000 7-18 mg/dL Normal BUN 15 LAB L501.1100 0.55-1.02 mg/dL Normal CREAT,SERUM 0.71 Result Comment: The validity of the calculated GFR AND GFRAA in patients over 70 years has not been determined. Clinical correlation is essential. LAB L501.1110 >60 mL/min Normal EST GFR 88 Result Comment: Non- GFR Calc LAB L501.1115 >60 mL/min Normal EST GFR - AA 106 Result Comment: GFR Calc LAB L501.1300 10-20 RATIO High BUN/CRE 21.0 LAB L501.1500 6.4-8.2 g/dL T Normal PROT 6.8 LAB L501.1800 3.2-5.0 g/dL Low ALB 3.1 LAB L501.1950 2.2-4.2 g/dL Normal GLOB 3.7 LAB L501.2000 0.9-2.4 RATIO Low A/G 0.8 LAB L501.2200 8.5-10.1 mg/dL CA Normal 8.8 LAB L501.4100 15-37 U/L Low AST 14 LAB L501.4305 45-117 U/L Normal ALK P 98 LAB L501.4405 13-56 U/L Normal ALT 20 LAB L501.4600 0.20-1.00 mg/dL T Normal BILI 0.30 LAB L501.5300 136-145 mmol/L NA Normal 144 LAB L501.5600 3.5-5.1 mmol/L K Normal 4.1 LAB L501.5900 98-107 mmol/L High CL 108 LAB L501.6100 21.0-32.0 mmol/L Normal CO2 27.0 LAB L501.6200 5-15 Normal GAP 9 Performed By: #### L500.4050, L500.4100, L501.6710, L501.9520, L503.6150 #### [facility] [address] [place], [place], [address] LIPID PROFILE Collected: 03/26/2018 Status: F Source: [place] 12:41 PM [facility] TYPE CODE TESTS RESULT OUT OF RANGE REFERENCE UNITS LAB L501.4900 200 mg/dL Normal CHOL 150 Result Comment: <200 mg/dL Desirable 200-240 mg/dL Borderline >240 mg/dL High Risk LAB L501.5000 mg/dL Normal TRIG 61 Result Comment: The drugs N-Acetylcysteine and Metamizole may falsely depress this assay. Serum Triglycerides Reference Interval Normal <150 mg/dL Borderline high 150 - 199 mg/dL High 200 - 499 mg/dL Very High > or = 500 mg/dL LAB L501.6400 mg/dL Normal HDL 72 Result Comment: The drugs N-Acetylcysteine and Metamizole may falsely depress this assay. Reference Range HDL <40 mg/dL Low HDL Cholesterol HDL >or= 60 mg/dL High HDL Cholesterol LAB L501.6500 0-130 mg/dL Normal LDL 66 LAB L501.6600 5-40 mg/dL Normal VLDL 12 Performed By: #### L500.4050, L500.4100, L501.6710, L501.9520, L503.6150 #### [facility] [address] [place], [place], [id number] CRP Collected: 03/26/2018 Status: F Source: [place] 12:41 PM [facility] TYPE CODE TESTS RESULT OUT OF RANGE REFERENCE UNITS LAB L501.6710 0.0-3.0 mg/L High 28.50 C-REACTIVE PROT Result Comment: C-Reactive Protein (CRP) provides useful information for the diagnosis, therapy and monitoring of inflammatory processes and associated diseases. For the evaluation of Relative Risk for Cardiovascular Disease, a High Sensitivity CRP (HSCRP) should be ordered. Performed By: #### L500.4050, L500.4100, L501.6710, L501.9520, L503.6150 #### [facility] [address] [place], [place], [address] THYROID STIM HORMONE Collected: 03/26/2018 Status: F Source: [place] (TSH) 12:41 PM [facility] TYPE CODE TESTS RESULT OUT OF RANGE REFERENCE UNITS LAB L501.9520 0.358-3.74 uIU/mL Normal TSH 1.18 Performed By: #### L500.4050, L500.4100, L501.6710, L501.9520, L503.6150 #### [facility] [address] [place], [place], [id number] IRON Collected: 03/26/2018 Status: F Source: [place] 12:41 PM [facility] TYPE CODE TESTS RESULT OUT OF RANGE REFERENCE UNITS LAB L503.6150 50-170 ug/dL Normal IRON 51 Performed By: #### L500.4050, L500.4100, L501.6710, L501.9520, L503.6150 #### [facility] [address] [place], [place], [id number] ERYTHROCYTE SED RATE Collected: 02/02/2018 Status: F Source: [place] 3:40 PM [facility] TYPE CODE TESTS RESULT OUT OF RANGE REFERENCE UNITS LAB L102.0000 0-30 mm/hr High SED RATE 38 Performed By: #### L101.9900 #### [facility] [address] [place], [place], [id number] CRP Collected: 02/02/2018 Status: F Source: [place] 3:40 PM [facility] TYPE CODE TESTS RESULT OUT OF RANGE REFERENCE UNITS LAB L501.6710 0.0-3.0 mg/L High 11.50 C-REACTIVE PROT Result Comment: C-Reactive Protein (CRP) provides useful information for the diagnosis, therapy and monitoring of inflammatory processes and associated diseases. For the evaluation of Relative Risk for Cardiovascular Disease, a High Sensitivity CRP (HSCRP) should be ordered. Performed By: #### L501.6710, L505.7010 #### [facility] [address] [place], [place], [address] RHEUMATOID FACTOR Collected: 02/02/2018 Status: F Source: [place] 3:40 PM [facility] TYPE CODE TESTS RESULT OUT OF REFERENCE UNITS RANGE LAB L505.7010 <15 IU/mL High RHEUMATOID FAC 135.0 Performed By: #### L501.6710, L505.7010 #### [facility] [address] [place], [place], [id number] CCP IGG ANTIBODIES Collected: 02/02/2018 Status: F Source: [place] 3:40 PM [facility] TYPE CODE TESTS RESULT OUT OF REFERENCE UNITS RANGE LAB L4600.0100 0-19 units High ANTI-CCP > 250 [id number] Result Comment: Negative <20 Weak positive 20 - 39 Moderate positive 40 - 59 Strong positive >59 Performed at: - [facility] [address] [id number] Commercial Loan Reviewer: Edwin Lagunas MD, Phone: [phone] Performed By: #### L4600.0100 #### [facility] (refer to report for specific site) refer to report for address and phone number ANTINUCLEAR ANTIBODIES Collected: 02/02/2018 Status: F Source: [place] DIRECT 3:40 PM [facility] TYPE CODE TESTS RESULT OUT OF RANGE REFERENCE UNITS LAB L3100.5475 Negative Normal Negative STAR-DIRECT Result Comment: Performed at: - [facility] [address] [id number] Commercial Loan Reviewer: Fady Alfaro PhD, Phone: [phone] Performed By: #### L3100.5475 #### [facility] (refer to report for specific site) refer to report for address and phone number INITAL EVALUATION (1) Observed: 01/17/2018 Status: F Source: [place] - PT 2:39 PM [facility] [place], [place] [address] Fax REHABILITATION SERVICES INITIAL EVALUATION MR#: [id number] Acct: [id number] Name: LELE GALICIA Rep #: [id number] : 1955 62 From: Willis Mireles DPT Referring Dr.: Ari Sinclair DO Status: REG RCR Insurance: [employer] INSURANCE Patient's Visit Information LELE AUGUSTE is a 62 year old F referred to Physical Therapy by Ari Sinclair with a diagnosis of Sprain of R RTC and R shoulder bursitis. Date of Evaluation: 01/09/18 Physical Therapist: Willis Mireles - Visit Plan Frequency: 1x/Week Duration: 6 Weeks Plan: Start with Phase II shoulder program with in pain free ranges. Progress to phase III in pain free ranges as tolerated. Pt. reports having difficulty getting here and will have PT weekly to accomadate schedule. Pt. given exercises to complete at home in between. - Subjective Subjective: Pt. is here today for her initial evaluation with diagnosis of sprain of R rotator cuff and R shoulder bursitis. Pt. reports having increased R shoulder pain for 4 months now. Pt. recently having L carpal tunnel release. Pt. reports increased pain during that period possibly due to sleeping on her R side. Pt. also is 1 year out of lumbar spinal surgery, pt. c/o continued dorsal surface of L foot. She has increased pain with lifting her arm over head, sleeping on R side, reaching overhead. Pt. reports pain extends into mid deltoid with above activities. Pt. denies N/T. Pt. has been reducing movement in R arm due to soreness. Pt. is hopeful to improve symptoms in order to get back to all ADL and household work without issues. - Pain R shoulder Pain Intensity (Out of 10): 2 - Objective POSTURE: Pt. has slight rounded shoulders, normal cervical spine positioning. Pt. has normal shoulder positioning with no elevation noted. PALPATION: Pt. has slight tenderness along sub acromial spaced, greater on posterior aspect compaired to anterior. Pt. has mild tenderness at UT and levator scapulea. NEUROLOGICAL: Pt. has normal sensation to light and sharp touch of bilateral UEs. Pt. has 2+ biceps and triceps DTR bilaterally. Pt. has no signs of upper limb tension.. ROM: R shoulder- flexion 170deg increase NW at end range, abd 165deg mild increase NW (painful arc starting at 90deg), functional ER C6 mild increase NW, functional IR T10 mild increase NW. Normal cervical spine ROM without increase in symptoms. MMT: LUE 5/5 throughout without issues. RUE- elbow- 5/5 throughout without increase in symptoms, shoulder- flexion 4+/5 increase NW, abd 4/5 increase NW, ext 5/5 NE, ER 4/5 increase NW, IR 5/5 NE. - Special Tests R Shoulder Empty Can - SS: Positive R Shoulder Belly Press - SupScap: Negative R Shoulder Neer - Impingement: Positive R Shoulder Puckett Donta - Impingement: Positive R Shoulder Biceps Load Test - Labrum: Negative R Shoulder Speeds Test - Labrum/Biceps: Positive - Goals Goal 1:: Pt. to be I with HEP. Goal Time Frame: 4-6 Weeks Goal 2:: Pt. to have full ROM of R shoulder without increase in symptoms. Goal Time Frame: 4-6 Weeks Goal 3:: Pt. to have increased RUE strength by 1/2 grade of all effected musculature allowing increased ability to complete all ADLs. Goal Time Frame: 4-6 Weeks Goal 4:: Pt. to sleep throughout the night without increase in R shoulder pain. Goal Time Frame: 4-6 Weeks - Rehabilitation Potential Physical Therapy Diagnosis: Pt. has signs and symptoms consistent with R RTC strain and R shoulder bursitis. Pt. has + signs for impingement of RTC/bursa. Pt. has associated weakness, likely secondary to increased pain. Pt. has limited motion with increased pain as well. She had an MRI stating no recurrent tearing. Pt. would benefit from PT to increase ROM, decrease pain and progress strength in order to get back to all PLOF without limitations. Rehabilitation Potential: Good - Anticipated Interventions Patient/Client Instruction: Educate patient on: Condition, Plan of Care, Risk Factors, Benefits of Fitness Program For the Purpose of:: To improve safety, To improve health and function, To foster healthy habits, To improve decision making, To facilitate caregiver knowledge, To improve self management, To prevent re-injury, To improve ability to perform tasks related to life management, To improve tolerance to ADL's Therapeutic Exercise to Include: Strength training, Power training, Postural training, Flexibilty training, Passive ROM, Active ROM, Scapular Strength/Stabilization For the Purpose of:: To decrease pain, To increase ROM, To improve nutrient delivery to tissue, To increase oxygenation perfusion, To improve muscle performance and motor function, To improve ability to perform ADL's, To improve health of tissue, To decrease soft tissue restriction, To increase flexibility/ROM Manual Therapy Techniques to Include: Trigger point massage, Mobilization, Passive ROM, Functional dry needling, Soft tissue mobilization For the Purpose of:: To decrease pain, To decrease swelling/inflammation, To improve nutrient delivery to tissue, To improve health of tissue, To decrease soft tissue restriction, To increase flexibility/ROM Cryotherapy (ice pack, ice massage): Yes Thermo therapy (hot pack): Yes Ultrasound (thermal/non thermal): Yes For the Purpose of:: To decrease pain, To decrease swelling/inflammation, To increase ROM Thank you for the opportunity to evaluate your patient. For Medicare and Medicare HMO plans, please review the plan of care and approve it. It will need to be FAXED BACK to us at [phone] for Medicare purposes. Please let me know if there are questions or concerns regarding this plan of care. Physician Signature: Date: <Electronically signed by Willis Mireles DPT> 01/17/18 1439 CC: Barbra Meng DO; Ari Sinclair DO CLS Signed For Medicare only, by signing this I certify the plan of care. Physicians Signature Date OT D/C SUMMARY Observed: 01/15/2018 Status: F Source: [place] 6:54 PM [facility] [address] [place] [address] Fax REHABILITATION SERVICES DISCHARGE SUMMARY MR#: [id number] Acct: [id number] Name: LELE GALICIA Rep #: [id number] : 1955 62 From: Taya MALHOTRA/Konstantin, CHT Referring DrAba: Ari Sinclair DO Status: REG RCR Eval Date: Discharge Date: HP - OT D/C Summary It has been my pleasure to treat LELE AUGUSET under orders from Ari Sinclair, for the diagnosis of bilateral CTS for a total of 3 visit(s). Please see the following information for a summary of their discharge status. - Objective Objective/Function: pt demo all ROM WNL-. left home therapy clinician strength increased from 10# to 35# pts pinch strength also increased by avg of 6#. pt has met goals in OT - Goals Patient Goals: Regain Mobility, Regain Strength, Decrease Pain, Improve Fine Motor Skills, Use Hand/Wrist/Arm Normally Again Goal:: pt will demo a increase in left home therapy clinician strength to 30# or greater to increase her ind. with BADLs and IADLS Goal:: pt will report pain no greater than 2/10 with use of bilateral hands with BADLS and IADLS by d/c Goal:: pt will demo understanding of scar mtg by end of 2nd session. Goal:: pt will demo understanding of joint protection and ad. eq. to decrease joint stress with performance of BADLS and IADLS - Plan Plan: D/C - D/C Information Discharge Comments: Pt was seen for 3 visits following a left CTR. pts pain decreased and she reports she is ind. with all BADLs and IADLs. pt has met functional goals in therapy and is D/C at this time. If there are questions or concerns regarding this patient's occupational therapy, please fell free to call me at [phone]. Thank you for the referral of this patient. Sincerely, RUBY Christianson CHT <Electronically signed by Taya MALHOTRA/HERBIE Pryor> 01/15/18 8394 CC: Barbra Meng DO; Ari Sinclair DO MK Signed OPERATIVE REPORT Observed: 01/08/2018 Status: F Source: [place] 4:46 PM [facility] Medical Records Department [address] [place] [address] Operative Report 01/08/18 1641 MR#: [id number] Acct: [id number] Name: LELE GALICIA Rep #: [id number] : 1955 62 From: Ric Walton MD PCP: Barbra Meng DO Status: [facility] Y Location: [facility] Problem List (1) Degeneration, intervertebral disc, lumbosacral Status: Chronic (2) Radiculopathy of lumbosacral region Status: Chronic (3) Spinal stenosis of lumbosacral region Status: Chronic Report of Operation Date of Procedure: 01/08/18 Pre-Operative Diagnosis: Lumbosacral radiculopathy, lumbosacral degenerative disc disease, lumbosacral spinal stenosis Post-Operative Diagnosis: Lumbosacral radiculopathy, lumbosacral degenerative disc disease, lumbosacral spinal stenosis Surgery/Procedure Performed:: Diagnostic/therapeutic caudal epidural steroid injection Description of Surgical Findings:: PROCEDURE: Diagnostic/therapeutic caudal epidural steroid injection PREOPERATIVE DIAGNOSIS: Lumbosacral radiculopathy, lumbosacral degenerative disc disease, lumbosacral spinal stenosis POSTOPERATIVE DIAGNOSIS: Lumbosacral radiculopathy, lumbosacral degenerative disc disease, lumbosacral spinal stenosis ANESTHESIA: MAC COMPLICATIONS: None BLOOD LOSS: Minimal PROCEDURE IN DETAIL: History and physical today was reviewed. Risks and benefits of the procedure were explained. The patient understood, agreed to our procedure, and informed consent was obtained. IV inserted per routine protocol. The patient was taken to the operating room, placed in a prone position with a pillow positioned underneath the abdomen. The lower back and buttock area was prepped and draped in a sterile fashion using iodine 3 and fluoroscopy guidance on the lateral view the caudal space was identified skin and subcutaneous tissue anesthetized approximately 3 cc of 1% lidocaine using a 25- gauge regular needle under direct visualization fluoroscopy using a 22-gauge 3-1/2 inch spinal needle the needle was advanced via the skin through the sacral hiatus tip of the needle passed through the sacrococcygeal ligament advanced approximately S4 area after negative aspiration for blood or CSF a total of 3 cc of contrast were injected to confirm correct placement of the needle as well as cephalad spread the spread was followed to approximately L5 area after confirmation AP as well as lateral view view and repeated negative aspiration a total of 15 cc of preservative preservative-free 0.125% Marcaine with 80 mg of Depo-Medrol were injected easily. The needles were then removed intact. The patient experienced no signs or symptoms intrathecal, intravascular injection. The patient experienced no paraesthesia. The procedure was completed without any apparent difficult, any complication. The patient appeared to tolerate well. ASSESSMENT AND PLAN: This is a 62-year-old female with lumbosacral radiculopathy, lumbosacral degenerative disc disease, lumbosacral spinal stenosis status post diagnostic/therapeutic caudal epidural steroid injection. The patient will continue her current medications. The patient will follow in approximately 2 weeks for possible repeat of the procedure if indicated. 01/08/18 1399 <Electronically signed by Ric Walton MD> Date Ric Walton MD CC: Ric Walton; Barbra Meng DO Signed FLUOR GUIDANCE FOR Observed: 01/08/2018 Status: F Source: [place] SPINE INJ 2:00 AM [facility] Imaging Services [address] [place] [address] Fluor Guidance for Spine Inj MR#: [id number] Acct: [id number] Name: PANG CABRERALELE KANG Jr Rep #: [id number] : 1955 F 62 From: Sukhjinder Doss MD PCP: Barbra Meng DO Status: [facility] Study: Fluor Guidance for Spine Inj Date of Exam: 01/08/18 Exam# [id number] Ordering Dr: Ric Walton MD PROCEDURE: Caudal block. DATE OF EXAMINATION: January 08, 2018. INDICATION: Female, 62 years old. Low back pain. FLUOROSCOPY TIME (if supplied): (0:09) minutes/seconds Intraoperative imaging provided for caudal block. The spinal needle is seen along the posterior midportion of the sacrum. RAD/Fluor Guidance for Spine Inj IMPRESSION: Intraoperative imaging provided for caudal block. Electronically Signed: Sukhjinder Doss MD at 15:15 EDT Tel [phone], Service support , CC: Ric Walton; Barbra Meng DO Dinker: Signed OT GENERAL EVALUATION Observed: 01/01/2018 Status: F Source: [place] 3:58 PM [facility] [address] [place] [address]. [address] [place] [address] Fax REHABILITATION SERVICES INITIAL EVALUATION MR#: [id number] Acct: [id number] Name: LELE GALICIA Rep #: [id number] : 1955 62 From: Taya Mora OTR/L, CHT Referring DrAba: rAi Sinclair DO Status: REG RCR Insurance: BARBIE Mahan Date: SELF PAY INSURANCE Patient's Visit Information LELE AUGUSTE is a 62 year old F, referred to Occupational Therapy by Ari Sinclair, with a diagnosis of bilateral CTS. Date of Evaluation: 01/01/18 Occupational Therapist: Taya Mora, OTR/L, CHT - Subjective Subjective: pt states her left UE/hand was casing pain, tingling/ and keeping her up at night- pt went to and had a nerve conduction test- revealing bilateral CTS- pt had left CTR performed on December 15, 2017. pt states her symptoms in left hand have resolved- pt states when she wakes up in the morning it takes about an hour or more to get her pain and motion to start using her hands and arms for daily occupations. pt states a hot shower and a heating pad does help decrease her pain . - Pain right UE 0 Pain Intensity Range: 0, 6 left UE 0 Pain Intensity Range: 0, 3 - Objective Objective/Observation: pt states she is having difficulty with performing her BADLS and IADLS - ROM Wrist: right 60/40 left 50/30 CMC: right 10 left 0 MP: right 50 left 55 IP: right 60 left 55 Opposition: right 10 left 7 ROM Comments: pt demo ROM WFL- but pain with end range motion- - Strength Gallery Director: right 25# left 10# Lateral Pinch: right 6# left 4# Tripod Pinch: right 2# left unable - Hand/Wrist Evaluation Total Score of Pain AND Functional Sections: 49 - Goals Goal:: pt will demo a increase in left home therapy clinician strength to 30# or greater to increase her ind. with BADLs and IADLS Goal:: pt will report pain no greater than 2/10 with use of bilateral hands with BADLS and IADLS by d/c Goal:: pt will demo understanding of scar mtg by end of 2nd session. Goal:: pt will demo understanding of joint protection and ad. eq. to decrease joint stress with performance of BADLS and IADLS - Rehabilitation General Assessment: s/p left CTR. dx right sprain of shoulder - defered to PT at this time- OT will focus on pt CTS and CTR- pt demo with a decrease in her ind. with BADLS and IADLS- pt would benefit from skilled OTR/L services 1-2x week for 4 weeks to return pt to PLOF and ed. on joint protection and ad. eq. for her ind. with BADLS and IADLS Rehabilitation Potential: Good - Anticipated Interventions Anticipated Interventions: A/AAROM/PROM, Strengthening, Scar Care, Triggerpoint Release, Desensitization, Modalities, Joint Protection/Energy Conservation, Fine Motor Coord/Gurdeep - Visit Plan Frequency: 1-2x /Week Duration: 4 Weeks TEXT: Thank you for the opportunity to evaluate your patient. For Medicare and Medicare HMO plans, please review the plan of care and approve it. It will need to be FAXED BACK to us at [phone] for Medicare purposes. Please let me know if there are questions or concerns regarding this plan of care. Physician Signature: Date: <Electronically signed by Taya Mora OTR/Konstantin, CHT> 01/01/18 1558 CC: Barbra Meng DO; Ari Sinclair DO MK Signed For Medicare only, by signing this I certify the plan of care. Physicians Signature Date 12 LEAD ELECTROCARDIOGRAM Observed: 12/14/2017 Status: F Source: [place] 8:22 AM [facility] Cardiovascular Services [address] [place] [address] 12 Lead EKG 12/13/17 1500 MR#: [id number] Acct: [id number] Name: LELE GALICIA Rep #: [id number] : 1955 62 From: Chi Gray MD Attending Dr: Ari Sinclair DO Status: REG CLI Ordering Dr: Ari Sinclair DO Date: 12/13/17 Location: LAB Sex: F AA Admitted: Test Reason : PREOP Blood Pressure : / mmHG Vent. Rate : 068 BPM Atrial Rate : 068 BPM P-R Int : 110 ms QRS Dur : 074 ms QT Int : 328 ms P-R-T Axes : 045 045 056 degrees QTc Int : 348 ms Sinus rhythm with short AL with occasional Premature ventricular complexes Possible Left atrial enlargement Nonspecific T wave abnormality Abnormal ECG Confirmed by MARINA MCADAMS, CHI ([id number]), deputy editor in chief MIKHAIL FAM ([id number]) on 12/14/2017 8:22:13 AM Referred By: Ari Sinclair Confirmed By:CHI GRAY MD 12/14/17821 Date Chi Gray MD CC: Barbra Meng DO; Ari Sinclair DO Signed CBC-COMPLETE BLOOD CNT Collected: 12/13/2017 Status: F Source: [place] NO DIFF 2:44 PM [facility] TYPE CODE TESTS RESULT OUT OF RANGE REFERENCE UNITS LAB L100.1000 4.4-11.0 K/mm3 Normal WBC 8.1 LAB L100.1200 4.2-5.4 M/mm3 Normal RBC 4.60 LAB L100.1300 12.0-15.0 g/dl Normal HGB 13.9 LAB L100.1400 37-47 % Normal HCT 42.8 LAB L100.1500 81-99 fL Normal MCV 93.0 LAB L100.1600 27.0-32.0 pg Normal MCH 30.2 LAB L100.1700 32-36 g/gl Normal MCHC 32.5 LAB L100.1810 11.6-14.6 % Normal RDW CV 13.0 LAB L100.1820 35.1-43.9 fl Normal RDW SD 43.4 LAB L100.1900 150-450 K/mm3 Normal PLT 268 LAB L100.2000 6.2-12.0 fl Normal MPV 10.6 Performed By: #### L100.0500 #### [facility] [address] [place], [place], [id number] BASIC METABOLIC Collected: 12/13/2017 Status: F Source: [place] PROFILE (BMP) 2:44 PM [facility] TYPE CODE TESTS RESULT OUT OF RANGE REFERENCE UNITS LAB L501.0100 74-106 mg/dL Normal GLU 85 Result Comment: Please note revised GLUCOSE reference range effective 2017. LAB L501.1000 7-18 mg/dL Normal BUN 17 LAB L501.1100 0.55-1.02 mg/dL Normal CREAT,SERUM 0.71 Result Comment: The validity of the calculated GFR AND GFRAA in patients over 70 years has not been determined. Clinical correlation is essential. LAB L501.1110 >60 mL/min Normal EST GFR 88 Result Comment: Non- GFR Calc LAB L501.1115 >60 mL/min Normal EST GFR - AA 106 Result Comment: GFR Calc LAB L501.1300 10-20 RATIO High BUN/CRE 23.8 LAB L501.2200 8.5-10.1 mg/dL CA Normal 9.2 LAB L501.5300 136-145 mmol/L NA Normal 142 LAB L501.5600 3.5-5.1 mmol/L K Normal 3.9 LAB L501.5900 98-107 mmol/L High CL 108 LAB L501.6100 21.0-32.0 mmol/L Normal CO2 28.0 LAB L501.6200 5-15 Normal GAP 6 Performed By: #### L500.2500 #### [facility] [address] [place] [address]. [place], [address] ALLERGIES ALLERGIES DATE TYPE / CODE NAME / CODE REACTION SEVERITY SOURCE 05/11/2018 Drug Penicillins/ Hives Unknown [facility] Allergy/4160 [id number]([facility] 89480(SNOMED XNORM) Repository CT) 05/11/2018 Drug benzonatate/ Unknown Unknown [facility] Allergy/4160 [id number]([facility] 45192(SNOMED XNORM) Repository CT) ENCOUNTERS ENCOUNTERS ADMIT/DISCHARGE ACCOUNT ADMITTING ENCOUNTER LOCATION SOURCE NUMBER CLASS 08/18/2018 [id number] Ambulatory [place] [facility] ing:OPBI Repository 08/02/2018/ [id number] Ambulatory [place] 8 [facility] ing:OT Repository 07/30/2018 [id number] Ambulatory [place] 0 [facility] Hospital ing:MTLAB Repository 07/04/2018 [id number] Ambulatory [place] 1 [facility] Hospital ing:MTRAD Repository 05/21/2018/ [id number] Ambulatory [place] 8 5 [facility] Hospital ing:SDC Repository 05/14/2018/ [id number] Ambulatory [place] 8 3 [facility] Hospital ing:SDC Repository 04/18/2018 [id number] Ambulatory [place] 4 [facility] ing:MTLAB Repository 04/09/2018/ [id number] Ambulatory [place] 8 5 [facility] Hospital ing:SDC Repository 03/26/2018 [id number] Ambulatory [place] 8 [facility] Hospital ing:LAB.FUTUR Repository E 02/02/2018 [id number] Ambulatory [place] 9 [facility] Hospital ing:LAB.FUTUR Repository E 02/01/2018 [id number] Ambulatory [place] 7 [facility] Hospital ing:LAB.FUTUR Repository E 01/15/2018/ [id number] Ambulatory [place] 8 0 [facility] ing:OT Repository 01/08/2018/ [id number] Ambulatory [place] 8 1 [facility] Hospital ing:SDCRoom: Repository AC15 12/13/2017 [id number] Ambulatory BMSBuilding:W [place] 3 [facility] Hospital Repository 12/13/2017 [id number] Ambulatory [place] 5 [facility] Hospital ing:LAB Repository PAYERS PAYERS ENCOUNTER GUARANTOR PAYER SUBSCRIBER SOURCE 08/18/2018 LELE [place] Insurance:[employer] SISLERDOB: [facility] [facility] y Number: [id number] Hospital LNAPT [place], [id number] Repository [place] [address]Nfz: jeanine Date:8713-93-68[address] () [address]JC: 08/18/2018 Secondary LELE S [place] Insurance:[facility] PLANPolicy SISLERDOB: Hospital Number: [id number] Repository [id number] Date:1518-27-02ZJ [address] [address]LO: 08/18/2018 Tertiary NOT GIVENUNK [place] Insurance:SELF PAY [facility] Number: Effective Repository Date:2018-06-01 08/02/2018 LELE S Primary JABARI [place] PANG Insurance:ANTHEMPolic SISLERDOB: [facility] [id number] SONNY y Number: [id number] Hospital LNAPT [facility], [id number] Repository [place] [address]Rht: jeanine Date:7812-83-18ZF [address] () [address]AN: 08/02/2018 Secondary LELE S [place] Insurance[place] SISLERDOB: Hospital Number: [id number] Repository [id number] Date:1287-31-69AN [address] [address]ER: 08/02/2018 Tertiary NOT GIVENUNK [place] Insurance:SELF PAY [facility] Number: Effective Repository Date:2018-06-05 07/30/2018 LELE S Primary JABARI [place] PANG Insurance:ANTHEMPolic SISLERDOB: [facility] [id number] SONNY y Number: [id number] Hospital LNAPT [facility], [id number] Repository [place] [address]Fxs: jeanine Date:1371-72-77MC [address] () [address]QC: 07/30/2018 Secondary LELE S [place] Insurance:[facility] SISLERDOB: Hospital Number: [id number] Repository [id number] Date:7303-79-55AB [address] [address]XJ: 07/30/2018 Tertiary NOT GIVENUNK [place] Insurance:SELF PAY [facility] Hospital Number: Effective Repository Date:2018-07-30 07/04/2018 LELE S Primary JABARI [place] PANG Insurance:ANTHEMPolic SISLERDOB: [facility] [id number] SONNY y Number: [id number] [facility] [address] [place] [address] [id number] Repository [place] [address]Pdp: jeanine Date:6643-57-50PY [address]RHSYDSZ, [place] () [address]SX: 07/04/2018 Secondary LELE S [place] Insurance:[facility] PLANPolicy SISLERDOB: Hospital Number: [id number] Repository [id number] Date:3001-88-63ZA [address] [address]HJ: 07/04/2018 Tertiary NOT GIVENUNK [place] Insurance:SELF PAY [facility] Number: Effective Repository Date:2018-07-04 05/21/2018 LELE S Primary JABARI [place] PANG Insurance:ANTHEMPolic SISLERDOB: [facility] [id number] SONNY y Number: [id number] [facility] CenterPT [address] [place] [address], [id number] [place]ository [place] [address]Bjs: jeanine Date:5798-22-59EP [address]YMOTKBI, [place] () [address]RQ: 05/21/2018 Secondary LELE S [place] Insurance:[facility] PLANPolicy SISLERDOB: Hospital Number: [id number] Repository [id number] Date:6373-31-14BZ [address] [address]CR: 05/21/2018 Tertiary NOT GIVENUNK [place] Insurance:SELF PAY [facility] Hospital Number: Effective Repository Date:2018-05-14 05/14/2018 LELE S Primary JABARI [place] PANG Insurance:ANTHEMPolic SISLERDOB: [facility] [id number] SONNY y Number: [id number] Hospital [place]NAPT [address], [id number] [place]ository [place] [address]Hbk: jeanine Date:1072-84-68PC [address] () [address]BQ: 05/14/2018 Secondary LELE S [place] [facility] SISLERDOB: Hospital Number: [id number] Repository [id number] Date:5564-24-68HL [address] [place] [address]YP: 05/14/2018 Tertiary NOT GIVENUNK [place] Insurance:SELF PAY [facility] Number: Effective Repository Date:2018-05-09 04/18/2018 LELE S Primary JABARI [place] Insurance:ANTHEMPolic SISLERDOB: [facility] [id number] SONNY y Number: [id number] [facility], [id number] Repository [place] [address]Gom: jeanine Date:3449-00-48CO [address] () [address]TF: 04/18/2018 Secondary LELE S [place] [facility] Hospital Number: [id number] Repository [id number] Date:0579-47-72FQ [address] [address]IT: 04/18/2018 Tertiary NOT GIVENUNK [place] Insurance:SELF PAY [facility] Number: Effective Repository Date:2018-04-18 04/09/2018 LELE S Primary JABARI [place] Insurance:ANTHEMPolic SISLERDOB: [facility] [id number] SONNY y Number: [id number] Hospital [address]NA[address], [id number] [place]ository [place] [address]Wwh: jeanine Date:6602-31-10DM [address] () [address]SI: 04/09/2018 Secondary LELE Norris [place] Insurance:[facility] Number: Repository [id number] Date:9343-11-02FW [address] [place] [address]KB: 04/09/2018 Tertiary NOT GIVENUNK [place] Insurance:SELF PAY [facility] Number: Effective Repository Date:2018-04-04 03/26/2018 Lele S Primary JABARI [place] Pang Insurance:ANTHEMPolic SISLERDOB: Community [id number] A y Number: [id number], [id number] [place]ository [place] [address]Xvw: jeanine Date:9186-54-51WN [address] () [address]OP: 03/26/2018 Secondary NOT GIVENUNK [place] Insurance:SELF PAY [facility] Number: Effective Repository Date:2018-03-21 02/02/2018 Lele S Primary JABARI [place] Insurance:ANTHEMPolic SISLERDOB: Community Swyank7672 A y Number: [id number] Health Network, [id number] [place]ository [place] [address]Hif: jeanine Date:7201-20-54VM [phone] [address] () [address]GU: 02/02/2018 Secondary NOT GIVENUNK [place] Insurance:SELF PAY [facility] Number: Effective Repository Date:2018-02-02 02/01/2018 Lele S Primary JABARI [place] Insurance:ANTHEMPolic SISLERDOB: Community [id number] A y Number: [id number] Hospital of Southern New MexicoKATHRYNINSPIRA [facility], [id number] Repository [place] [address]Huf: jeanine Date:1426-71-90RY [phone] [address] () [address]EB: 02/01/2018 Secondary NOT GIVENUNK [place] Insurance:SELF PAY [facility] Number: Effective Repository Date:2018-02-01 01/15/2018 Lele Norris Primary JABARI [place] Insurance:ANTHEMPolic SISLERDOB: Community Sttpaw7384 A y Number: [id number] Hospital of Southern New MexicoSTEPHANI, [id number] Repository [place] [address]Ipl: jeanine Date:5385-40-17EP [phone]~330 [address]KXGOUJYMAHESH BELL () [address]UJ: 01/15/2018 Secondary NOT GIVENUNK [place] Insurance:SELF PAY [facility] Number: Effective Repository Date:2017-12-26 01/08/2018 Lele Norris Primary JABARI [place] Insurance:ANTHEMPolic SISLERDOB: Community [id number] A y Number: [id number] Health Network, [id number] [place]ository [place] [address]Ngk: jeanine Date:5953-03-66UJ [phone]~330 [address]LJQGZEVMAHESH BELL () [address]HR: 01/08/2018 Secondary NOT GIVENUNK [place] Insurance:SELF PAY [facility] Number: Effective Repository Date:2018-01-03 12/13/2017 Lele Norris Primary JABARI [place] Insurance:ANTHEMPolic SISLERDOB: Community [id number] A y Number: [id number] Hospital of Southern New MexicoKATHRYNINSPIRA MEDICAL CENTER [place], [id number] Repository [place] [address]Hsz: jeanine Date:3625-04-57OP [phone]~330 [address]PUFZTZZMAHESH REA () [address]DG: 12/13/2017 Secondary NOT GIVENUNK [place] Insurance:SELF PAY [facility] Number: Effective Repository Date:2017-12-13 12/13/2017 Lele Norris Primary JABARI [place] Insurance:ANTHEMPolic SISLERDOB: Community Nedoai7020 A y Number: [id number] Hospital SOLIS DIMAS, [id number] [place]ository [place] [address]Lvw: jeanine Date:5776-36-98QU [phone] [address]RWTGLAY, [place] -7 () [address]YE: 12/13/2017 Secondary NOT GIVENUNK [place] Insurance:SELF PAY [facility] Number: Effective Repository Date:2017-12-13
== END ==
PROVIDERS: Family Provider Family Medicine; PCP Family Medicine; Referring Provider Family Medicine; Visit Provider Family Medicine
DX: Z12.31 Encounter for screening mammogram for malignant neoplasm of breast (principal)
CPT/HCPCS: 77063; 77067

== ENCOUNTER → 2018-10-23 10:19 | Outpatient (CLI) | payer BC, MEDICAID, SELFPAY ==
[2018-05-21 09:07] VITALS: BMI 25.4
[2018-10-23 12:13] LABS: Erythrocyte Sedimentation Rate 10 mm/hr (0-30)
[2018-10-23 17:49] LABS: Vitamin D,25 Hydroxy 25.2 ng/mL (29.95-100.01)
[2018-10-23 17:57] LABS: BUN 20 mg/dL (7-18); EST Glomerular Filtration Rate 77 mL/min (>60); Glucose 80 mg/dL (74-106)
[2018-10-23 17:58] LABS: ALB/GLOB Ratio 1.1 RATIO (0.9-2.4); AST(SGOT) 17 U/L (15-37); Alanine Aminotransfer ALT/SGPT 29 U/L (13-56); Albumin, Serum 3.6 g/dL (3.2-5.0); Alkaline Phosphatase 82 U/L (45-117); Anion Gap 9 (5-15); BUN/Creat Ratio 25.1 RATIO (10-20); CRP < 2.90 mg/L (0.0-3.0); Chloride 107 mmol/L (98-107); Est Glom Filt Rate - Afr Amer 93 mL/min (>60); Globulin 3.3 g/dL (2.2-4.2); Potassium 3.6 mmol/L (3.5-5.1); Protein, Total 6.9 g/dL (6.4-8.2); Sodium Level 143 mmol/L (136-145)
== END ==
PROVIDERS: Family Provider Family Medicine; PCP Family Medicine; Visit Provider Family Medicine
DX: M05.79 Rheumatoid arthritis with rheumatoid factor of multiple sites without organ or systems involvement (principal); E55.9 Vitamin D deficiency, unspecified; Z51.81 Encounter for therapeutic drug level monitoring
CPT/HCPCS: 36415; 80053; 82306; 85652; 86140

== ENCOUNTER → 2018-11-16 15:03 | Outpatient (CLI) | payer BC, MEDICAID, SELFPAY ==
--- NOTE | 2018-11-16 15:10 | RAD_ITS ---
STUDY: X-RAY - LEFT HAND REASON FOR EXAM: Female, 63 years old. Left hand pain TECHNIQUE: 3 view(s) of the hand. COMPARISON: None. FINDINGS: Normal radiocarpal articulation. Normal distal radioulnar joint. Normal visualized carpal bones. Normal carpal articulations Normal carpometacarpal articulation of the thumb. Normal second through fifth carpometacarpal joints. Normal metacarpi. Normal metacarpophalangeal joint of the thumb. Normal interphalangeal joint of the thumb. Normal proximal and distal phalanges of the thumb. Normal metacarpophalangeal joints of the second through fifth fingers. Normal proximal and distal interphalangeal joints of the second through fifth fingers. Normal phalanges of the second through fifth fingers. The soft tissue structures are unremarkable. RAD/Hand Min 3 Views IMPRESSION: No erosive or proliferative arthropathy. Electronically Signed: Tushar Falk MD at 14:14 EDT , Service support ,
--- NOTE | 2018-11-16 15:10 | RAD_ITS ---
STUDY: X-RAY - RIGHT FOOT CLINICAL: Female, 63 years old. Right foot pain TECHNIQUE: 3 view(s) of the foot. COMPARISON: None. FINDINGS: Normal talus, calcaneus, and tarsal bones. Normal visualized subtalar, talonavicular, calcaneocuboid, tarsal and tarsometatarsal articulations. Normal metatarsi. There is degenerative arthrosis of the metatarsophalangeal joint of the hallux . Normal tibial and fibular sesamoid bones. Normal interphalangeal joint of the great toe. Normal phalanges of the great toe. Normal second through fifth metatarsophalangeal joints. Normal interphalangeal joints and phalanges of the lesser toes. The soft tissue structures are unremarkable. 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 No erosive features. Electronically Signed: Tushar Falk MD at 14:11 EDT , Service support ,
--- NOTE | 2018-11-16 15:10 | RAD_ITS ---
STUDY: X-RAY - RIGHT HAND REASON FOR EXAM: Female, 63 years old. Right hand pain TECHNIQUE: 3 view(s) of the hand. COMPARISON: None. FINDINGS: Normal radiocarpal articulation. Normal distal radioulnar joint. Normal visualized carpal bones. Normal carpal articulations Normal carpometacarpal articulation of the thumb. Normal second through fifth carpometacarpal joints. Normal metacarpi. Normal metacarpophalangeal joint of the thumb. Normal interphalangeal joint of the thumb. Normal proximal and distal phalanges of the thumb. Normal metacarpophalangeal joints of the second through fifth fingers. Normal proximal and distal interphalangeal joints of the second through fifth fingers. Normal phalanges of the second through fifth fingers. The soft tissue structures are unremarkable. RAD/Hand Min 3 Views IMPRESSION: No erosive or significant proliferative arthropathy. Electronically Signed: Tushar Falk MD at 14:13 EDT , Service support ,
--- NOTE | 2018-11-16 15:10 | RAD_ITS ---
STUDY: X-RAY - LEFT FOOT CLINICAL: Female, 63 years old. Left foot pain TECHNIQUE: 3 view(s) of the foot. COMPARISON: None. FINDINGS: Normal talus, calcaneus, and tarsal bones. Normal visualized subtalar, talonavicular, calcaneocuboid, tarsal and tarsometatarsal articulations. Surgical fixation screw and operative changes of the first metatarsal noted. There is mild deformity of the distal fifth metatarsal but no discrete fracture line is seen. There is degenerative arthrosis of the metatarsophalangeal joint of the hallux . Normal tibial and fibular sesamoid bones. Normal interphalangeal joint of the great toe. Normal phalanges of the great toe. Normal second through fifth metatarsophalangeal joints. Normal interphalangeal joints and phalanges of the lesser toes. The soft tissue structures are unremarkable. 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 Prior bunionectomy. Suspect old fifth metatarsal fracture. Electronically Signed: Tushar Falk MD at 14:12 EDT , Service support ,
[2018-11-16 17:42] LABS: Absolute Lymphocyte Count 1.27 X10^3/ul (0.83-4.51); Absolute Neutrophil Count 4.9 X10^3/uL (2.0-7.7); Basophil# 0.03 X10^3/uL; Basophil% 0.5 % (0-1); Eosinophil# 0.04 X10^3/uL; Eosinophils% 0.6 % (0-5); Hemoglobin 13.9 g/dl (12.0-15.0); Lymphocyte # 1.27 X10^3/ul (4.0); Lymphocyte % 19.4 % (19-41); Mean Corp Hgb Conc 30.9 g/gl (32-36); Mean Platelet Vol. 10.4 fl (6.2-12.0); Monocyte# 0.25 X10^3/uL; Monocyte% 3.8 % (0-10); Neutrophil # 4.86 X10^3/uL (2.7-7.7); Neutrophil % 74.5 % (47-70); Platelet Count 329 K/mm3 (150-450); RBC Distribution Width CV 14.8 % (11.6-14.6); RBC Distribution Width SD 50.7 fl (35.1-43.9); Red Blood Count 4.64 M/mm3 (4.2-5.4); White Blood Count 6.5 K/mm3 (4.4-11.0)
[2018-11-16 17:48] LABS: POSITIVE COUNT NO; POSITIVE DIFFERENTIAL NO; POSITIVE MORPHOLOGY NO
== END ==
PROVIDERS: Family Provider Family Medicine; PCP Family Medicine; Referring Provider Internal Medicine Rheumatology; Visit Provider Internal Medicine Rheumatology
DX: M05.79 Rheumatoid arthritis with rheumatoid factor of multiple sites without organ or systems involvement (principal); M25.50 Pain in unspecified joint; Z79.899 Other long term (current) drug therapy; M06.09 Rheumatoid arthritis without rheumatoid factor, multiple sites; M16.0 Bilateral primary osteoarthritis of hip; I10 Essential (primary) hypertension; E78.5 Hyperlipidemia, unspecified; J45.909 Unspecified asthma, uncomplicated; F41.9 Anxiety disorder, unspecified; F32.89 Other specified depressive episodes; F90.9 Attention-deficit hyperactivity disorder, unspecified type
CPT/HCPCS: 36415; 73130; 73630; 85025

== ENCOUNTER 2018-12-17 08:24 | Day surgery (SDC) | payer BC, MEDICAID, SELFPAY ==
[2018-12-17 09:01] VITALS: BP 102/67; PULSE 75; RESP 14; TEMP 36.8; O2SAT 93; BMI 27.8
--- NOTE | 2018-12-17 09:10 | RAD_ITS ---
STUDY: INTRAOPERATIVE FLUOROSCOPY RIGHT HIP INJECTION REASON FOR EXAM: Female, 63 years old. Hip injection right side TECHNIQUE: 3 frontal fluoroscopic images were obtained by the surgeon intraoperatively, fluoroscopy time 8 seconds. COMPARISON: None. FINDINGS: Image suspect intra-articular administration of radiodense contrast agent into the right hip joint with appropriate distribution of the joint space. RAD/Fluoro Guided Needle Placement IMPRESSION: Appropriate distribution of greater density contrast within the hip joint space. Correlate with operative report. Electronically Signed: Ross Montes MD at 16:58 EDT Tel , Service support ,
[2018-12-17] MEDS: Bupivacaine 0.25% 30 ML Vial (09:25)
[2018-12-17] MEDS: MethylPREDNISolone Acetate 80 MG/ML Vial (09:25)
[2018-12-17 09:31] VITALS: BP 102/67; BP 84/55; PULSE 76; RESP 16; TEMP 36.8; O2SAT 99
[2018-12-17 09:35] VITALS: BP 102/67; BP 84/57; PULSE 76; RESP 16; O2SAT 100
[2018-12-17 09:40] VITALS: BP 102/67; BP 87/62; PULSE 72; RESP 18; O2SAT 100
[2018-12-17 09:45] VITALS: BP 102/67; BP 95/59; PULSE 71; RESP 18; TEMP 36.5; O2SAT 100
--- NOTE | 2018-12-17 10:07 | OP.PCM_ITS ---
Problem List (1) Unilateral primary osteoarthritis, right hip Status: Chronic Report of Operation Date of Procedure: 12/17/18 Pre-Operative Diagnosis: Osteoarthritis of the right hip Post-Operative Diagnosis: Osteoarthritis of the right hip Surgery/Procedure Performed:: Right hip intra-articular steroid injection under fluoroscopic guidance Description of Surgical Findings:: PROCEDURE: Right hip intra-articular steroid injection under fluoroscopic guidance PREOPERATIVE DIAGNOSIS: Osteoarthritis of the right hip POSTOPERATIVE DIAGNOSIS: Osteoarthritis of the right hip ANESTHESIA: MAC COMPLICATIONS: None BLOOD LOSS: Minimal PROCEDURE IN DETAIL: History and physical today was reviewed. Risks and benefits of the procedure were explained. The patient understood, agreed to our procedure, and informed consent was obtained. IV inserted per routine protocol. The patient was taken to the operating room, placed in a supine position right hip area was prepped and draped in a sterile fashion using iodine x3 and fluoroscopy guidance AP view the right hip joint was visualized the skin and subcutaneous tissue and size approximately 3 cc of 1% lidocaine using a 25-gauge regular needle approximately 3 cm cephalad to the right greater trochanter under direct visualization fluoroscopy using a lateral approach using a 22-gauge 3-1/2 inch spinal needle needle as well as was advanc ed via the skin tip of the needle was maneuvered and directed towards the superiormost aspect of the hip joint once the tip of the needle was at the vicinity of the hip joint after negative aspiration for blood positive aspiration of synovial fluid a total of 2 cc of contrast were injected to confirm correct placement of the needle as well as halo spread around the hip joint after repeated negative aspiration confirmation a total of 9 cc of 0.25% Marcaine with 80 mg of Depo-Medrol were injected easily. The needles were then removed intact. The patient experienced no signs or symptoms intrathecal, intravascular injection. The patient experienced no paraesthesia. The procedure was completed without any apparent difficult, any complication. The patient appeared to tolerate well. ASSESSMENT AND PLAN: This is a 63-year-old female with osteoarthritis of the right hip status post right hip intra-articular steroid injection under fluoroscopic guidance. The patient will continue her current medications. The patient will follow in approximately 2 weeks for reevaluation.
[2018-12-17 10:39] VITALS: BP 102/67
== END 2018-12-17 10:41 | disposition home or self-care (01) ==
LOC: SDC 08:24
PROVIDERS: Family Provider Family Medicine; PCP Family Medicine; Referring Provider Anesthesiology Pain Medicine; Visit Provider Anesthesiology Pain Medicine
PROC: 3E0U3GC Introduction of Other Therapeutic Substance into Joints, Percutaneous Approach (ICD-10-PCS; CPT 20610; principal; 2018-12-17 09:05)
DX: M16.11 Unilateral primary osteoarthritis, right hip (principal); I10 Essential (primary) hypertension; E78.00 Pure hypercholesterolemia, unspecified; J44.9 Chronic obstructive pulmonary disease, unspecified; F32.9 Major depressive disorder, single episode, unspecified; M06.9 Rheumatoid arthritis, unspecified; M47.817 Spondylosis without myelopathy or radiculopathy, lumbosacral region; M54.17 Radiculopathy, lumbosacral region; M48.07 Spinal stenosis, lumbosacral region; M16.12 Unilateral primary osteoarthritis, left hip; M79.7 Fibromyalgia; M51.37 Other intervertebral disc degeneration, lumbosacral region; M19.011 Primary osteoarthritis, right shoulder; M54.2 Cervicalgia; Z79.891 Long term (current) use of opiate analgesic; Z87.891 Personal history of nicotine dependence
CPT/HCPCS: 01992; 27096; 76000; 77002; J7120

== ENCOUNTER → 2019-01-16 10:26 | Outpatient (CLI) | payer BC, MEDICAID, SELFPAY ==
[2019-01-01 15:00] VITALS: BMI 27.8
--- NOTE | 2019-01-16 10:31 | BD_ITS ---
STUDY: DUAL ENERGY X-RAY ABSORPTIOMETRY / DXA REASON FOR EXAM: Female, 63 years old. Early menopause. No loss of height. TECHNIQUE: Bone Mineral Density (BMD) measurements of lumbar spine and bilateral hips were obtained. COMPARISON: None. FINDINGS: Lumbar Spine (L1-L4): g/cm2 (0.912) / T-score (-2.1) / Z-score (-1.2) Findings are suggestive of osteopenia with a moderate fracture risk. Left Femur Total: g/cm2 (0.832) / T-score (-1.4) / Z-score (-1.2) Left Femoral Neck: g/cm2 (0.768) / T-score (-1.9) / Z-score (-1.4) Right Femur Total: g/cm2 (0.848) / T-score (-1.3) / Z-score (-1.1) Right Femoral Neck: g/cm2 (0.781) / T-score (-1.9) / Z-score (-1.3) BD/Dexa Bone Density Study IMPRESSION: The patient is considered osteopenic as outlined below according to World [employer] Organization (WHO) criteria with a moderate fracture risk. Reference Information: The T-score is the number of standard deviations above or below the standard which is normal for young adults at their peak bone mineral density. The World Health Organization (WHO) interprets the T-scores as follows: Above -1 Normal bone density Between -1 and -2.5 Osteopenia Equal to / or below -2.5 Osteoporosis As a practical clinical guideline, osteopenia may be graded as follows: Mild -1 through -1.5 Moderate -1.6 through -2.0 Severe -2.1 through -2.4 The Z-score is the number of standard deviations above or below age-matched controls. A Z-score of less than -1.5 would be considered abnormal. References: 1. NIH Osteoporosis and Related Bone Diseases http://www.osteo.org 2. International Society for Clinical Densitometry http://www.iscd.org 3. National Osteoporosis Foundation http://www.nof.org Electronically Signed: Sukhjinder Doss, at 14:57 EDT , Service support ,
== END ==
PROVIDERS: Family Provider Internal Medicine; PCP Internal Medicine; Referring Provider Internal Medicine; Visit Provider Internal Medicine
DX: Z78.0 Asymptomatic menopausal state (principal); Z79.52 Long term (current) use of systemic steroids
CPT/HCPCS: 77080

== ENCOUNTER 2019-01-21 07:30 | Day surgery (SDC) | payer BC, MEDICAID, SELFPAY ==
[2019-01-01 15:00] VITALS: BMI 27.8
[2019-01-21 07:45] VITALS: BP 132/79; PULSE 74; RESP 16; TEMP 36.4; O2SAT 100; BMI 26.9
--- NOTE | 2019-01-21 08:40 | RAD_ITS ---
HISTORY: LEFT HIP INJECTION EXAM/TECHNIQUE: XR Hip Unilateral with Pelvis when performed; 1 View: COMPARISON: None. FINDINGS: # of images incl. paperwork: 2 Single fluoroscopic image of the left hip. Injected contrast extends into the hip joint. The needle is visible. RAD/Fluoro Guided Needle Placement IMPRESSION: Left hip arthrogram as above. at 2236 Reported and signed by: Louis Smith MD Electronically Signed: Louis Smith, at 22:35 EDT Tel , Service support ,
[2019-01-21] MEDS: MethylPREDNISolone Acetate 80 MG/ML Vial (08:49)
[2019-01-21] MEDS: Bupivacaine 0.25% 30 ML Vial (08:49)
[2019-01-21 08:54] VITALS: BP 122/66; BP 132/79; PULSE 64; RESP 16; TEMP 37.1; O2SAT 98
[2019-01-21 09:00] VITALS: BP 108/66; BP 132/79; PULSE 66; RESP 16; O2SAT 99
--- NOTE | 2019-01-21 09:03 | PCM.HP.BLA ---
Problem List (1) Primary osteoarthritis of left hip Status: Chronic History and Physical Date of Admission: 01/21/19 History and physical for today was reversed, no specific pain we will proceed with the planned procedure patient with left hip osteoarthritis we will proceed with a left hip intra-articular steroid injection under fluoroscopic guidance I have re-examined the patient. There are no clinical changes since date of exam patient last office visit 11/29/2018
[2019-01-21 09:05] VITALS: BP 121/74; BP 132/79; PULSE 66; RESP 16; O2SAT 99
[2019-01-21 09:10] VITALS: BP 116/67; BP 132/79; PULSE 62; RESP 16; TEMP 36.2; O2SAT 99
[2019-01-21 09:35] VITALS: BP 132/79
--- NOTE | 2019-01-21 13:14 | PCM.OPRPT ---
Problem List (1) Primary osteoarthritis of left hip Status: Chronic Report of Operation Date of Procedure: 01/21/19 Pre-Operative Diagnosis: Osteoarthritis of the left hip Post-Operative Diagnosis: Osteoarthritis of the left hip Surgery/Procedure Performed:: Left hip intra-articular steroid injection under fluoroscopic guidance Description of Surgical Findings:: PROCEDURE: Left hip intra-articular steroid injection under fluoroscopic guidance PREOPERATIVE DIAGNOSIS: Osteoarthritis of the left hip POSTOPERATIVE DIAGNOSIS: Osteoarthritis of the left hip ANESTHESIA: MAC COMPLICATIONS: None BLOOD LOSS: Minimal PROCEDURE IN DETAIL: History and physical today was reviewed. Risks and benefits of the procedure were explained. The patient understood, agreed to our procedure, and informed consent was obtained. IV inserted per routine protocol. The patient was taken to the operating room, placed in a supine position left hip area was prepped and draped in a sterile fashion using iodine x3 and fluoroscopy guidance AP view the left hip joint was visualized the skin and subcutaneous tissue and size approximately 3 cc of 1% lidocaine using a 25-gauge regular needle approximately 3 cm cephalad to the right greater trochanter under direct visualization fluoroscopy using a lateral approach using a 22-gauge 3-1/2 inch spinal needle needle as well as was advanced via the skin tip of the needle was maneuvered and directed towards the superiormost aspect of the hip joint once the tip of the needle was at the vicinity of the hip joint after negative aspiration for blood positive aspiration of synovial fluid a total of 2 cc of contrast were injected to confirm correct placement of the needle as well as halo spread around the hip joint after repeated negative aspiration confirmation a total of 9 cc of 0.25% Marcaine with 80 mg of Depo-Medrol were injected easily. The needles were then removed intact. The patient experienced no signs or symptoms intrathecal, intravascular injection. The patient experienced no paraesthesia. The procedure was completed without any apparent difficult, any complication. The patient appeared to tolerate well. ASSESSMENT AND PLAN: This is a 63-year-old female with osteoarthritis of the left hip status post left hip intra-articular steroid injection under fluoroscopic guidance. The patient will continue her current medications. The patient will follow in approximately 2 weeks for reevaluation.
== END 2019-01-21 09:35 | disposition home or self-care (01) ==
LOC: SDC 07:32 → AC 07:32
PROVIDERS: Family Provider Family Medicine; PCP Family Medicine; Referring Provider Anesthesiology Pain Medicine; Visit Provider Anesthesiology Pain Medicine
PROC: 3E0U3GC Introduction of Other Therapeutic Substance into Joints, Percutaneous Approach (ICD-10-PCS; CPT 20610; principal; 2019-01-21 08:35)
DX: M16.0 Bilateral primary osteoarthritis of hip (principal); I10 Essential (primary) hypertension; E78.00 Pure hypercholesterolemia, unspecified; J44.9 Chronic obstructive pulmonary disease, unspecified; M54.2 Cervicalgia; M25.521 Pain in right elbow; M19.011 Primary osteoarthritis, right shoulder; M51.37 Other intervertebral disc degeneration, lumbosacral region; M79.7 Fibromyalgia; Z79.891 Long term (current) use of opiate analgesic; M47.817 Spondylosis without myelopathy or radiculopathy, lumbosacral region; M54.17 Radiculopathy, lumbosacral region; M48.07 Spinal stenosis, lumbosacral region; Z87.891 Personal history of nicotine dependence
CPT/HCPCS: 20610; 76000; 77002; J7120

== ENCOUNTER → 2019-01-30 15:20 | Outpatient (CLI) | payer BC, MEDICAID, SELFPAY ==
[2019-01-24 09:08] VITALS: BMI 26.9
[2019-01-30 17:30] LABS: Absolute Lymphocyte Count 3.85 X10^3/ul (0.83-4.51); Absolute Neutrophil Count 4.7 X10^3/uL (2.0-7.7); Basophil# 0.04 X10^3/uL; Basophil% 0.4 % (0-1); Eosinophil# 0.18 X10^3/uL; Eosinophils% 1.9 % (0-5); Hematocrit 42.9 % (37-47); Hemoglobin 13.9 g/dl (12.0-15.0); Lymphocyte # 3.85 X10^3/ul (4.0); Lymphocyte % 40.8 % (19-41); Mean Corp Hgb Conc 32.4 g/gl (32-36); Mean Corpuscular Hgb 30.3 pg (27.0-32.0); Mean Corpuscular Volume 93.7 fL (81-99); Mean Platelet Vol. 10.1 fl (6.2-12.0); Monocyte# 0.66 X10^3/uL; Neutrophil # 4.65 X10^3/uL (2.7-7.7); Neutrophil % 49.4 % (47-70); Platelet Count 307 K/mm3 (150-450); RBC Distribution Width CV 14.3 % (11.6-14.6); RBC Distribution Width SD 46.5 fl (35.1-43.9); Red Blood Count 4.58 M/mm3 (4.2-5.4); White Blood Count 9.4 K/mm3 (4.4-11.0)
[2019-01-30 17:36] LABS: POSITIVE COUNT NO; POSITIVE DIFFERENTIAL NO; POSITIVE MORPHOLOGY NO
[2019-01-30 18:07] LABS: AST(SGOT) 14 U/L (15-37); Alanine Aminotransfer ALT/SGPT 29 U/L (13-56); Albumin, Serum 3.5 g/dL (3.2-5.0); BUN 22 mg/dL (7-18); CRP < 2.90 mg/L (0.0-3.0); Creatinine, Serum 1.02 mg/dL (0.55-1.02); EST Glomerular Filtration Rate 58 mL/min (>60); Est Glom Filt Rate - Afr Amer 70 mL/min (>60)
== END ==
PROVIDERS: Family Provider Family Medicine; PCP Internal Medicine; Referring Provider Internal Medicine Rheumatology; Visit Provider Internal Medicine Rheumatology
DX: M05.79 Rheumatoid arthritis with rheumatoid factor of multiple sites without organ or systems involvement (principal)
CPT/HCPCS: 36415; 82040; 82565; 84450; 84460; 84520; 85025; 86140

== ENCOUNTER 2019-02-18 08:19 | Day surgery (SDC) | payer BC, MEDICAID, SELFPAY ==
[2019-02-08 13:28] VITALS: BMI 26.9
[2019-02-18 08:38] VITALS: BP 121/86; PULSE 65; RESP 16; TEMP 36.1; O2SAT 99; BMI 27.6
--- NOTE | 2019-02-18 09:40 | RAD_ITS ---
PROCEDURE: Caudal block. DATE OF EXAMINATION: February 18, 2019. INDICATION: Female, 63 years old. Chronic low back pain. FLUOROSCOPY TIME (if supplied): (0:08) minutes/seconds. 2 images were obtained. RAD/Fluor Guidance for Spine Inj IMPRESSION: Intraoperative imaging provided for caudal block. Electronically Signed: Sukhjinder Doss, at 12:29 EDT , Service support ,
[2019-02-18] MEDS: Bupivacaine 0.25% 30 ML Vial (09:51)
[2019-02-18] MEDS: MethylPREDNISolone Acetate 80 MG/ML Vial (09:51)
[2019-02-18 09:55] VITALS: BP 118/76; BP 121/86; PULSE 73; RESP 14; TEMP 36.6; O2SAT 99
[2019-02-18 10:00] VITALS: BP 111/72; BP 121/86; PULSE 70; RESP 14; O2SAT 99
[2019-02-18 10:05] VITALS: BP 115/78; BP 121/86; PULSE 67; RESP 16; O2SAT 99
[2019-02-18 10:10] VITALS: BP 121/86; BP 122/73; PULSE 70; RESP 16; TEMP 36.5; O2SAT 98
[2019-02-18 10:26] VITALS: BP 121/86
--- NOTE | 2019-02-18 11:55 | PCM.OPRPT ---
Problem List (1) Degeneration, intervertebral disc, lumbosacral Status: Chronic (2) Radiculopathy of lumbosacral region Status: Chronic (3) Spinal stenosis of lumbosacral region Status: Chronic Report of Operation Date of Procedure: 02/18/19 Pre-Operative Diagnosis: Lumbosacral radiculopathy, lumbosacral degenerative disc disease, lumbosacral spinal stenosis Post-Operative Diagnosis: Lumbosacral radiculopathy, lumbosacral degenerative disc disease, lumbosacral spinal stenosis Surgery/Procedure Performed:: Caudal epidural steroid injection Description of Surgical Findings:: PROCEDURE: Caudal epidural steroid injection PREOPERATIVE DIAGNOSIS: Lumbosacral radiculopathy, lumbosacral degenerative disc disease, lumbosacral spinal stenosis POSTOPERATIVE DIAGNOSIS: Lumbosacral radiculopathy, lumbosacral degenerative disc disease, lumbosacral spinal stenosis ANESTHESIA: MAC COMPLICATIONS: None BLOOD LOSS: Minimal PROCEDURE IN DETAIL: History and physical today was reviewed. Risks and benefits of the procedure were explained. The patient understood, agreed to our procedure, and informed consent was obtained. IV inserted per routine protocol. The patient was taken to the operating room, placed in a prone position with a pillow positioned underneath the abdomen. The lower back and tailbone area was prepped and draped in a sterile fashion using iodine ?3 under fluoroscopy guidance on the lateral view the caudal space was identified the skin and subcutaneous tissue and size approximately 3 cc of 1% lidocaine using a 25-gauge regular needle under direct visualization fluoroscopy using the lateral approach using a 22-gauge 3-1/2 inch spinal needle the needle was advanced via the skin through the sacral hiatus, tip of the needle passed through the sacrococcygeal ligament advanced approximately S4 area after negative aspiration for blood or CSF a total of 3 cc of contrast were injected to confirm correct placement of the needle as well as cephalad spread the spread was followed to approximately L5 area after confirmation AP as well as lateral view repeated negative aspiration a total of 15 cc of preservative-free 0.125% Marcaine with 80 mg of the portal was injected easily. The needles were then removed intact. The patient experienced no signs or symptoms intrathecal, intravascular injection. The patient experienced no paraesthesia. The procedure was completed without any apparent difficult, any complication. The patient appeared to tolerate well. ASSESSMENT AND PLAN: This is a 63-year-old female with lumbosacral radiculopathy, lumbosacral degenerative disc disease, lumbosacral spinal stenosis status post caudal epidural steroid injection. The patient will continue her current medications. The patient will follow in approximately 2 weeks for reevaluation.
== END 2019-02-18 10:37 | disposition home or self-care (01) ==
LOC: SDC 08:19 → AC 08:21
PROVIDERS: Family Provider Internal Medicine; PCP Internal Medicine; Referring Provider Anesthesiology Pain Medicine; Visit Provider Anesthesiology Pain Medicine
PROC: 3E0S3BZ Introduction of Anesthetic Agent into Epidural Space, Percutaneous Approach (ICD-10-PCS; CPT 62282; principal; 2019-02-18 09:35)
DX: M51.17 Intervertebral disc disorders with radiculopathy, lumbosacral region (principal); M48.07 Spinal stenosis, lumbosacral region; I10 Essential (primary) hypertension; E78.00 Pure hypercholesterolemia, unspecified; J44.9 Chronic obstructive pulmonary disease, unspecified; F32.9 Major depressive disorder, single episode, unspecified; F90.9 Attention-deficit hyperactivity disorder, unspecified type; Z87.891 Personal history of nicotine dependence; M47.817 Spondylosis without myelopathy or radiculopathy, lumbosacral region; M79.7 Fibromyalgia; M19.011 Primary osteoarthritis, right shoulder; M54.2 Cervicalgia; M25.521 Pain in right elbow; Z79.891 Long term (current) use of opiate analgesic; M16.0 Bilateral primary osteoarthritis of hip
CPT/HCPCS: 62323; 76000; 77003; J7120; J3490

== ENCOUNTER → 2019-04-25 11:56 | Outpatient (CLI) | payer BC, MEDICAID, SELFPAY ==
[2019-04-08 13:17] VITALS: BMI 27.6
[2019-04-25 13:53] LABS: Absolute Lymphocyte Count 2.29 X10^3/uL (0.83-4.51); Absolute Neutrophil Count 3.1 X10^3/uL (2.0-7.7); Basophil# 0.06 X10^3/uL; Basophil% 0.9 % (0-1); Eosinophils% 7.7 % (0-5); Hematocrit 43.8 % (37-47); Hemoglobin 13.9 g/dL (12.0-15.0); Lymphocyte # 2.29 X10^3/ul (4.0); Lymphocyte % 35.2 % (19-41); Mean Corp Hgb Conc 31.7 g/dL (32-36); Mean Corpuscular Hgb 31.4 pg (27.0-32.0); Mean Corpuscular Volume 99.1 fL (81-99); Mean Platelet Vol. 10.5 fl (6.2-12.0); Monocyte# 0.55 X10^3/uL; Monocyte% 8.4 % (0-10); NRBC Flagged by Analyzer 0 % (0-5); Neutrophil # 3.09 X10^3/uL (2.7-7.7); Neutrophil % 47.5 % (47-70); Platelet Count 257 K/mm3 (150-450); RBC Distribution Width CV 13.9 % (11.6-14.6); RBC Distribution Width SD 50.6 fl (35.1-43.9); Red Blood Count 4.42 M/mm3 (4.2-5.4); White Blood Count 6.5 K/mm3 (4.4-11.0)
[2019-04-25 14:08] LABS: AST(SGOT) 12 U/L (15-37); Alanine Aminotransfer ALT/SGPT 32 U/L (13-56); Albumin, Serum 3.6 g/dL (3.2-5.0); BUN 21 mg/dL (7-18); CRP < 2.90 mg/L (0.0-3.0); Creatinine, Serum 0.76 mg/dL (0.55-1.02); EST Glomerular Filtration Rate 82 mL/min (>60); Est Glom Filt Rate - Afr Amer 99 mL/min (>60)
== END ==
PROVIDERS: Family Provider Internal Medicine; PCP Internal Medicine; Referring Provider Internal Medicine Rheumatology; Visit Provider Internal Medicine Rheumatology
DX: M05.79 Rheumatoid arthritis with rheumatoid factor of multiple sites without organ or systems involvement (principal)
CPT/HCPCS: 36415; 82040; 82565; 84450; 84460; 84520; 85025; 86140

== ENCOUNTER → 2019-05-07 16:34 | Outpatient (CLI) | payer BC, MEDICAID, SELFPAY ==
[2019-04-08 13:17] VITALS: BMI 27.6
--- NOTE | 2019-05-07 16:37 | RAD_ITS ---
HISTORY:PAIN , NO INJURY, HX OSTEOARTHRITIS PAIN , NO INJURY, HX OSTEOARTHRITIS COMPARISON: None FINDINGS: # of images incl. paperwork: 3 XR Foot Min 3 Views: Right BONE AND JOINTS: No acute fracture or subluxation. Subtle erosive changes are seen at the lateral aspect head of the fifth metatarsal unchanged from prior study. Flexion deformity is seen at the DIP joint of the third and fourth toes similar to prior study. SOFT TISSUES: Unremarkable. No radiopaque foreign body. RAD/Foot min 3 Views IMPRESSION: No acute pathology Overall appearance is similar to prior study at 0157 Reported and signed by: Sarika Sal DO Electronically Signed: Sarika Sal DO at 1:56 EDT Tel , Service support ,
--- NOTE | 2019-05-07 16:37 | RAD_ITS ---
STUDY: X-RAY - LEFT FOOT CLINICAL: Female, 63 years old. Nontraumatic left foot pain TECHNIQUE: 3 view(s) of the foot. COMPARISON: None. FINDINGS: Normal talus, calcaneus, and tarsal bones. Normal visualized subtalar, talonavicular, calcaneocuboid, tarsal and tarsometatarsal articulations. There is postoperative change from bunionectomy with single fixation screw within the neck of the first metatarsal. Mild degenerative change of the first metatarsophalangeal joint. Normal tibial and fibular sesamoid bones. Normal interphalangeal joint of the great toe. Normal phalanges of the great toe. Normal second through fifth metatarsophalangeal joints. Normal interphalangeal joints and phalanges of the lesser toes. The soft tissue structures are unremarkable. RAD/Foot min 3 Views IMPRESSION: 1. No evidence of acute injury to the left foot. 2. Mild osteoarthritic change of the first metatarsophalangeal joint status post bunionectomy Electronically Signed: Guille Abel MD at 3:09 EDT Tel , Service support ,
== END ==
PROVIDERS: Family Provider Internal Medicine; PCP Internal Medicine; Referring Provider Internal Medicine Rheumatology; Visit Provider Internal Medicine Rheumatology
DX: M05.79 Rheumatoid arthritis with rheumatoid factor of multiple sites without organ or systems involvement (principal)
CPT/HCPCS: 73630

== ENCOUNTER → 2019-06-14 10:28 | Outpatient (CLI) | payer MEDICARE, MEDICAID, SELFPAY ==
[2019-04-08 13:17] VITALS: BMI 27.6
[2019-06-14 13:10] LABS: Cholesterol 200 mg/dL (200); High Density Lipoprotein 84 mg/dL; Triglycerides 76 mg/dL; Very Low Density Lipoprotein 15 mg/dL (5-40)
[2019-06-14 17:32] LABS: Anion Gap 7 (5-15); BUN 30 mg/dL (7-18); BUN/Creat Ratio 36.9 RATIO (10-20); Calcium,Total 9.2 mg/dL (8.5-10.1); Chloride 110 mmol/L (98-107); Creatinine, Serum 0.81 mg/dL (0.55-1.02); EST Glomerular Filtration Rate 75 mL/min (>60); Est Glom Filt Rate - Afr Amer 91 mL/min (>60); Glucose 96 mg/dL (74-106); Sodium Level 143 mmol/L (136-145)
== END ==
PROVIDERS: Family Provider Internal Medicine; PCP Internal Medicine; Referring Provider Internal Medicine; Visit Provider Internal Medicine
DX: I10 Essential (primary) hypertension (principal)
CPT/HCPCS: 36415; 80048; 80061

== ENCOUNTER → 2019-07-15 16:17 | Outpatient (CLI) | payer MEDICARE, MEDICAID, SELFPAY ==
[2019-07-15 15:25] VITALS: BMI 27.6
--- NOTE | 2019-07-15 16:21 | RAD_ITS ---
STUDY: X-RAY CHEST REASON FOR EXAM: Female, 64 years old. Of breath and wheezing TECHNIQUE: PA and lateral COMPARISON: None. FINDINGS: Mild nonspecific bilateral perihilar interstitial thickening.. There is no demonstrated pleural abnormality. Normal size heart. Normal mediastinum and lima. Normal visualized pulmonary arteries. Mildly calcified aortic arch and descending thoracic aorta. Dorsal spine demonstrates spondylosis. Normal visualized ribs, and clavicles. Postop changes involving the left shoulder There is no demonstrated abnormality of the visualized soft tissue structures of the upper abdomen. RAD/Chest PA and Lateral IMPRESSION: No acute cardiopulmonary pathology Electronically Signed: Ric Altamirano MD at 16:46 EST , Service support ,
[2019-07-15 17:45] LABS: Absolute Lymphocyte Count 0.84 X10^3/uL (0.83-4.51); Absolute Neutrophil Count 6.2 X10^3/uL (2.0-7.7); Basophil# 0.04 X10^3/uL; Basophil% 0.6 % (0-1); Eosinophil# 0.04 X10^3/uL; Eosinophils% 0.6 % (0-5); Hematocrit 44.8 % (37-47); Hemoglobin 13.9 g/dL (12.0-15.0); Lymphocyte # 0.84 X10^3/ul (4.0); Lymphocyte % 11.7 % (19-41); Mean Corpuscular Hgb 30.1 pg (27.0-32.0); Mean Platelet Vol. 10.4 fl (6.2-12.0); Monocyte# 0.08 X10^3/uL; Monocyte% 1.1 % (0-10); NRBC Flagged by Analyzer 0 % (0-5); Neutrophil # 6.16 X10^3/uL (2.7-7.7); Neutrophil % 85.7 % (47-70); Platelet Count 300 K/mm3 (150-450); RBC Distribution Width CV 13.2 % (11.6-14.6); RBC Distribution Width SD 47.1 fl (35.1-43.9); Red Blood Count 4.62 M/mm3 (4.2-5.4); White Blood Count 7.2 K/mm3 (4.4-11.0)
[2019-07-15 18:05] LABS: AST(SGOT) 18 U/L (15-37); Alanine Aminotransfer ALT/SGPT 26 U/L (13-56); Albumin, Serum 3.9 g/dL (3.2-5.0); BUN 16 mg/dL (7-18); CRP < 2.90 mg/L (0.0-3.0); Creatinine, Serum 0.82 mg/dL (0.55-1.02); EST Glomerular Filtration Rate 75 mL/min (>60); Est Glom Filt Rate - Afr Amer 90 mL/min (>60)
== END ==
PROVIDERS: Family Provider Internal Medicine; PCP Internal Medicine; Referring Provider Internal Medicine Rheumatology; Visit Provider Internal Medicine Rheumatology
DX: M05.79 Rheumatoid arthritis with rheumatoid factor of multiple sites without organ or systems involvement (principal); I10 Essential (primary) hypertension
CPT/HCPCS: 36415; 71046; 82040; 82565; 84450; 84460; 84520; 85025; 86140

== ENCOUNTER → 2019-09-10 13:55 | Outpatient (CLI) | payer BC, MEDICARE, MEDICAID, SELFPAY ==
[2019-08-14 14:26] VITALS: BMI 27.6
--- NOTE | 2019-09-10 13:56 | CT_ITS ---
STUDY: LOW DOSE CT LUNG CANCER SCREENING REASON FOR EXAM: Female, 64 years old. LUNG SCREENING, 1PPD X 49 YRS. DYSPNEA UPON SECRETION, HTN RADIATION DOSAGE (If Supplied By Facility): CTDIvol = ( 2.01 ) mGy, DLP = ( 59.92 ) mGycm TECHNIQUE: No contrast was administered. Low dose technique was utilized (average mAS-38 and kVp 120). 1.25 mm axial source images with a slice interval of 1.25-mm were reconstructed in lung windows. 2.5 mm axial source images with a slice interval of 2.5-mm were reconstructed in lung windows. 5.0 mm axial source images with a slice interval of 5.0-mm were reconstructed in soft tissue windows. Nodule measured using lung windows on PACS and/or independent workstation with automated measurement of minimum and maximum diameter. Nodule measurement reported as average diameter rounded to the nearest whole number. Growth is defined as an increase ins size of greater than 1.5 mm. COMPARISON: Comparison is made with prior examination dated August 10, 2013. NODULES: No suspicious nodules are seen. Emphysema: A bulla is seen in the superior aspect of the left lower lobe measuring 2.2 cm x 2.1 cm. Bullous changes are also seen in the lingular segment of the left upper lobe. A tiny bulla is seen in the posterior aspect of the right lower lobe. These are unchanged as compared to prior study. Aorta: Calcified atherosclerotic plaques. Coronary arteries: Coronary artery calcification. Mediastinal nodes: No significant nodes are seen. Other chest and abdominal findings: Degenerative changes of the thoracic spine. CT/Low Dose CT Lung Screening IMPRESSION: Lung-RADS category 2 - Continue annual screening with LDCT in 12 months. IMPORTANT NOTES FOR USE: ACR Lung-RADS Version 1.0 Assessment Categories Release Date: December 30, 2013 Category: Coded 0-4 bases on nodule(s) with highest degree of suspicion. Negative screen is defined as categories 1 and 2; a positive screen is defined as categories 3 and 4. Category 3 and 4A nodules that are unchanged on interval CT should be coded as category 2, and individuals returned to screening in 12 months. Category 4X: Category 3 or 4 nodules with additional imaging findings that increase the suspicion of lung cancer, such as spiculation, GGN that doubles in size in 1 year, enlarged lymph notes, etc. Category Modifiers: S (significant finding unrelated to lung cancer) and C (prior history of treated lung cancer) may be added to the 0-4 Lung-RADS Electronically Signed: Sukhjinder Doss, at 14:29 EST , Service support ,
== END ==
PROVIDERS: Family Provider Internal Medicine; PCP Internal Medicine; Referring Provider Nurse Practitioner Family; Visit Provider Nurse Practitioner Family
DX: Z12.2 Encounter for screening for malignant neoplasm of respiratory organs (principal); Z87.891 Personal history of nicotine dependence
CPT/HCPCS: G0297

== ENCOUNTER 2019-09-18 14:30 | Outpatient (RCR) | payer MEDICARE, MEDICAID, SELFPAY ==
[2019-04-08 13:17] VITALS: BMI 27.6
[2019-07-15 15:25] VITALS: BMI 27.6
--- NOTE | 2019-07-16 13:18 | HP.PTEVAL_ITS ---
Patient's Visit Information LELE AUGUSTE is a 64 year old F referred to Physical Therapy by DAPHNE LOMBARDI with a diagnosis of LUMBAR RADICULOPATHY. Date of Evaluation: 07/16/19 Physical Therapist: Subha Fonseca PT, Cert MDT - Visit Plan Frequency: 2-3x /Week Duration: 4-6 Weeks Plan: AQUATIC THERAPY FOR PAIN RELIEF, LLE DESENSATIZATION, POSTURE CORRECTION/STRENGTHENING, INSTRUCTION IN APPROPRIATE BODY MECHANICS AND ACTIVITY MODIFICATIONS. DLS STARTING WITH A NEUTRAL SPINE PROGRESSING ROM TOLERATED. ZANDER LE ROM, STRETCHING AND STRENGTHENING. HEP INSTRUCTION. PATIENT HAS ORIENTATION FOR [employer] PENDING SOON. - Subjective Findings: S/P BACK SURGERY BY DR. HILDA MAHER 05/21/19. Work/Leisure: RETIRED. HAS NOT WORKED SINCE AUG 2018. Disability: NO. Present symptoms: LOW BACK PAIN. ACHING IN LEFT THIGH, LEG AND FOOT. LEFT FOOT HURTS AND IT IS NUMB. LEFT ANKLE STAYS SWOLLEN. PATIENT REPORTS SHE HAS HAD THESE SX'S SINCE HER FIRST BACK SURGERY (LUMBAR FUSION 2016). PATIENT REPORTS THAT SINCE HER RECENT BACK SURGERY THE ACHE IN THE FRONT OF HER LEFT LEG THAT WAS SEVERE IS GONE. STATES THE SURGERY HAS NOT HELPED HER LEFT FOOT. SHE REPORTS SHE STILL HAS PAIN DOWN THE BACK OF HER LEFT THIGH ALSO AND THE OUTSIDE OF HER LOWER LEG. Pain Scale: WORST 8/10, LEAST 3/10. Currently: 5/10. Commenced as a result of: NO APPARENT REASON. Worse: WALKING, SITTING, STANDING, BENDING, LYING IN THE BED, GOING UP AND DOWN STEPS, VACUUMING. Better: HOT BATH OR SHOWER, LYING DOWN. Disturbed sleep: YES. Previous history/Previous treatment: FIRST BACK SURGERY WAS LUMBAR FUSION L45 2016. SECOND BACK SURGERY WAS MAY [address] MAHER. PHYSICAL THERAPY IN THE PAST FOR BACK. 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 MANY MEMO'S (DR. HAAS). Coughing/sneezing/straining: NEGATIVE. Gait: DISTANCE LIMITED. WALKING INCREASES LOW BACK PAIN. INTERMITTENT LIMP LLE. Difficulty initiating urinatin: NO. Accidents: NO. Unexplained weight loss: NO. Imaging: NO IMAGING SINCE SURGERY. PMH: FEBRUARY 2018 DX'D WITH RA., HTN, DEPRESSION, ADD/ADHD, CURRENT SMOKER, ZANDER ROTATOR CUFF REPAIRS, ZANDER HAND SURGERIES. OTHER: PATIENT REPORTS AQUATIC THERAPY WAS HELPFUL AFTER FIRST BACK SURGERY. PATIENT REPORTS SHE NO LONGER HAS ANY RESTRICTIONS THAT SHE KNOWS OF AT THIS POINT. - Objective Sitting/Standing Posture: POOR. Lordosis: DECREASED. Lateral shift: NO. Relevant shift: N/A. Active Correction of posture: WORSE. Other Observations: PATIENT IS UNABLE TO TRANSFER LAURO'LY FROM SIT TO STAND WITHOUT UE ASSIST. PATIENT AMBULATES INDEP'LY INTO PT X APPROX 300 FETT WITHOUT ANY GROSS DEVIATIONS NOTED. HER CADANCE IS FAIR, NO LOB AND NO ASSISTIVE DEVICES. STRENGTH: RIGHT LE HIP FLEX 4/5, KNEE EXT 5/5, KNEE FLEX 5/5, ANKLE DORSIFLEX 5/5. LLE: HIP FLEX 4-/5, KNEE EXT 5/5, KNEE FLEX 4/5, ANKLE DORSIFLEX 4-/5, EHL 4-/5. ZANDER LE LIGHT TOUCH SENSATION IS INTACT AND SYMETRICAL EXCEPT LEFT FOOT DIGITS 1-3 AND DISTAL LATERAL LEG BEING HYPERSENSATIVE AND NUMB COMPARED TO THE RIGHT. LUMBAR MVMT LOSS: FLEX - MOD, EXT - MANNY, ZANDER SG - MANNY. PATIENT'S MVMTS ARE SLOW AND GUARDED WHEN TESTING BACK ROM AND PATIENT WITH C/O BACK PAIN STARTING TO INCREASE AT THE END OF THE AVAILABLE ROM ALL PLANES WITH TESTING. CORE STENGTH: POOR. PALPATION: NO ACUTE TENDERNESS IN LUMBAR REGION. INCISIONS LOOK GREAT WITHOUT ANY SIGNS OF INFECTION. 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 - Goals Goal 1:: DECREASE C/O LOW BACK AND LLE SX'S. Goal Time Frame: 4-6 Weeks Goal 2:: IMPROVE LIFTING, WALKING, SITTING, STANDING, SLEEP, SOCIAL LIFE, TRAVEL, WORK AND HOMEMAKING FUNCTION. Goal Time Frame: 4-6 Weeks Goal 3:: INSTRUCT IN PROPHYLAXIS Goal Time Frame: 4-6 Weeks - Rehabilitation Potential Rehabilitation Potential: Fair - Anticipated Interventions Patient/Client Instruction: Educate patient on: Condition, Plan of Care, Risk Factors, Benefits of Fitness Program For the Purpose of:: To improve self management Therapeutic Exercise to Include: Strength training, Body mechanics, Postural training, Flexibilty training, In an aquatic setting, Dynamic Lumbar Stabilization Comment: H/O ZANDER SHLD SURGERIES For the Purpose of:: To decrease pain, To increase ROM, To improve muscle performance and motor function, To increase tolerance to activit y/condition/position, To improve ability of physical actions for home/community/work/leisure Thank you for the opportunity to evaluate your patient. For Medicare and Medicare HMO plans, please review the plan of care and approve it. It will need to be FAXED BACK to us at [phone] for Medicare purposes. For Medicare only, by signing this I certify the plan of care. Please let me know if there are questions or concerns regarding this plan of care. Physician Signature: Date:
--- NOTE | 2019-08-12 16:06 | HP.PTREVAL ---
DAPHNE LOMBARDI, It has been my pleasure to treat LELE AUGUSTE over the last 9 visits for LUMBAR RADICULOPATHY. Please see the progress note below for an update on the physical therapy plan of care! Subjective: PATIENT REPORTS SHE DOESN'T HAVE BACK PAIN MUCH NOW. SHE REPORTS SHE STILL GETS LEFT THIGH PAIN WITH PROLONGED STANDING AND WALKING. LEFT FOOT IS STILL A PROBLEM IN TERMS OF INTERMITTENT SWELLING, PAIN, AND TINGLING. SHE REPORTS THIS HASN'T CHANGED SINCE SURGERY. SHE REPORTS THAT WHEN SHE CALLED HER SURGEON SHE WAS TOLD THIS COULD TAKE QUITE AWHILE OR MAY NEVER GO AWAY IN THE LEG. PATIENT IS TO CALL THEM IF IT CONTINUES TO LOOK AT OTHER OPTIONS. PATIENT REPORTS SHE IS DOING HER HEP AND THEY ARE GETTING EASIER. PATIENT REPORTS SHE HAS NO RESTRICTIONS AND WILL JUST FOLLOW UP WITH HER SURGEON NEEDED AT THIS POINT. Objective/Function: PATIENT IS MAKING PROGRESS WITH PT AND IS A GOOD CANDIDATE TO CONTINUE PT BASED ON ROOM FOR FURTHER IMPROVEMENT. SHE IS AGREEABLE. PATIENT IS NOW ABLE TO TRANSFER INDEP'LY FROM SIT TO STAND WITHOUT UE ASSIST. PATIENT AMBULATES INDEP'LY INTO PT X APPROX 300 FEET WITHOUT ANY GROSS DEVIATIONS NOTED AND GOOD CADANCE. STRENGTH: RIGHT LE HIP FLEX 5/5, KNEE EXT 5/5, KNEE FLEX 5/5, ANKLE DORSIFLEX 5/5. LLE: HIP FLEX 4/5, KNEE EXT 5/5, KNEE FLEX 4/5, ANKLE DORSIFLEX 5/5. ZANDER LE LIGHT TOUCH SENSATION IS INTACT AND SYMETRICAL EXCEPT LEFT FOOT DIGITS 1-3 AND DISTAL LATERAL LEG STILL BEING HYPERSENSATIVE AND NUMB COMPARED TO THE RIGHT. LUMBAR MVMT LOSS: FLEX - NIL, EXT - MANNY, ZANDER SG - MOD. PATIENT'S MVMTS ARE NO LONGER SLOW AND GUARDED WHEN TESTING BACK ROM. PATIENT DENIES PAIN WITH LUMBAR ROM TESTING TODAY EXCEPT AT THE END OF THE AVAILABLE RANGE INTO EXTENSION. CORE STENGTH: POOR BUT IMPROVING. PALPATION: NO ACUTE TENDERNESS IN LUMBAR REGION. OTHER: PATIENT WAS OBSERVED MOVING QUICKLY IN THE LOBBY JUST BEFORE SESSION CHANGING DIRECTIONS QUICKLY AND EVEN ABLE TO JOG A LITTLE TO START BACK TO THERAPY. Plan Plan: CONT PER POC WORKING TOWARD SAME GOALS DECREASING AQUATIC THERAPY TO ONCE A WEEK AND PROGRESSING TO LAND THERAPY ONCE A WEEK. GIVE WRITTEN HEP WELL. PATIENT IS AGREEABLE. Goals Goal 1:: DECREASE C/O LOW BACK AND LLE SX'S. Goal Time Frame: 4-6 Weeks Goal Progress: Progressing Goal 2:: IMPROVE LIFTING, WALKING, SITTING, STANDING, SLEEP, SOCIAL LIFE, TRAVEL, WORK AND HOMEMAKING FUNCTION. Goal Time Frame: 4-6 Weeks Goal Progress: Progressing Goal 3:: INSTRUCT IN PROPHYLAXIS Goal Time Frame: 4-6 Weeks Goal Progress: Progressing Anticipated Interventions Patient/Client Instruction: Educate patient on: Condition, Plan of Care, Risk Factors, Benefits of Fitness Program For the Purpose of:: To improve self management Therapeutic Exercise to Include: Strength training, Body mechanics, Postural training, Flexibilty training, In an aquatic setting, Dynamic Lumbar Stabilization Comment: H/O ZANDER SHLD SURGERIES For the Purpose of:: To decrease pain, To increase ROM, To improve muscle performance and motor function, To increase tolerance to activity/condition/position, To improve ability of physical actions for home/community/work/leisure Please do not hesitate to contact me at [phone] by phone or if you have questions or concerns regarding this new plan of care! Sincerely, Subha Fonseca, PT, Cert MDT
--- NOTE | 2019-09-18 16:06 | HP.PTDCSUM_ITS ---
HP - PT D/C Summary It has been my pleasure to treat LELE AUGUSTE under orders from DAPHNE LOMBARDI, for the diagnosis of LUMBAR RADICULOPATHY for a total of 17 visit(s). Discharge Date: Please see the following information for a summary of their discharge status. - Subjective Subjective: MY BACK DOESN'T HURT MUCH. PATIENT REPORTS SHE IS STILL HAVING THE PAIN IN THE FRONT AND THE BACK OF HER LEFT LEG. SHE ALSO REPORTS SHE STILL HAS THE NUMBNESS AND SWELLING IN HER LEFT FOOT AND ANKLE ESPECIALLY IF SHE HAS BEEN UP ON IT TOO LONG. INTERMITTENT SHARP PAINS IN LEFT FOOT AND ANKLE. PATIENT REPORTS SHE FEELS LIKE SHE CAN DO HER OWN THERAPY NOW. STATES SHE KNOWS WHAT EX'S TO DO. - Pain LB Pain Intensity (Out of 10): 1 L LE Pain Intensity (Out of 10): 5 - Overall Improvement % Improvement: 30 - Objective Objective/Function: PATIENT WAS SEEN TODAY FOR RE-ASSESSMENT OF PROGRESS TOWARD THE SET PT GOALS AND THE NEED FOR FURTHER PHYSICAL THERAPY VS READINESS FOR DISCHARGE. SHE IS INDEP WITH BOTH LAND AND WATER EX PROGRAMS AND THIS PT HAS RECOMMENDED AQUATIC THERAPY OVER AGGRESSIVE LAND THERAPY. PATIENT AMBULATES IN DEP'LY INTO PT X APPROX 300 FEET WITHOUT ANY GROSS DEVIATIONS NOTED AND GOOD CADANCE. STRENGTH: RIGHT LE HIP FLEX 5/5, KNEE EXT 5/5, KNEE FLEX 5/5, ANKLE DORSIFLEX 5/5. LLE: HIP FLEX 4/5, KNEE EXT 5/5, KNEE FLEX 4/5, ANKLE DORSIFLEX 5/5. ZANDER LE LIGHT TOUCH SENSATION IS INTACT AND SYMETRICAL EXCEPT LEFT FOOT DIGITS 1-3 AND DISTAL LATERAL LEG STILL BEING HYPERSENSATIVE AND NUMB COMPARED TO THE RIGHT. LUMBAR MVMT LOSS: FLEX - NIL, EXT - MOD, ZANDER SG - MIN. PATIENT'S MVMTS ARE NOT SLOW AND GUARDED WHEN TESTING BACK ROM. PATIENT DENIES PAIN WITH LUMBAR ROM TESTING TODAY. CORE STENGTH: POOR. WRITTEN GYM EX LOG PROVIDED. - Goals Goal 1:: DECREASE C/O LOW BACK AND LLE SX'S. Goal Progress: Goal Met Goal 2:: IMPROVE LIFTING, WALKING, SITTING, STANDING, SLEEP, SOCIAL LIFE, TRAVEL, WORK AND HOMEMAKING FUNCTION. Goal Progress: Goal Met Goal 3:: INSTRUCT IN PROPHYLAXIS Goal Progress: Goal Met - Plan Plan: D/C TO INDEP EX. PATIENT AGREEABLE. - D/C Information If there are questions or concerns regarding this patient's physical therapy, please feel free to call me at [phone]. Thank you for the referral of this patient. Sincerely, Subha Fonseca, PT, Cert MDT
== END 2019-09-18 19:00 | disposition home or self-care (01) ==
LOC: PT 14:30
PROVIDERS: Family Provider Internal Medicine; PCP Internal Medicine
DX: M54.16 Radiculopathy, lumbar region (principal)
CPT/HCPCS: 97110; 97113; 97162; 97164; 97530

== ENCOUNTER 2019-09-23 08:54 | Day surgery (SDC) | payer BC, MEDICARE, MEDICAID, SELFPAY ==
[2019-08-14 14:26] VITALS: BMI 27.6
[2019-09-20 16:19] VITALS: BMI 28.8
[2019-09-23] VITALS (7 sets, daily range): BP systolic 108–136; BP diastolic 78–85; PULSE 58–78; RESP 16–18; TEMP 36.2–36.9; O2SAT 99–100; BMI 28.7
[2019-09-23] MEDS: Lactated Ringers 1,000 ML 100 ML IV (09:44)
--- NOTE | 2019-09-23 10:13 | PCM.OPRPT ---
Report of Operation Date of Procedure: 09/23/19 Description of Surgical Findings:: PREOPERATIVE DIAGNOSIS: Lumbosacral radiculopathy, lumbosacral degenerative disc disease, lumbosacral spinal stenosis POSTOPERATIVE DIAGNOSIS: Lumbosacral radiculopathy, lumbosacral degenerative disc disease, lumbosacral spinal stenosis PROCEDURE PERFORMED: Caudal epidural steroid injection. ANESTHESIA: MAC. BLOOD LOSS: Minimal. COMPLICATIONS: None. DESCRIPTION OF PROCEDURE: History and physical of today was reviewed. Risks and benefits of the procedure were explained. The patient understood and agreed to proceed. Informed consent was obtained. IV inserted per routine protocol. The patient was taken to the operating room and placed in the prone position with a pillow positioned underneath the abdomen. The lower back and tailbone area was prepped and draped in a sterile fashion using iodine x3. Under fluoroscopy guidance on a lateral view, the caudal space was identified. The skin and subcutaneous tissue was anesthetized with approximately 3 mL of 1% lidocaine using a 25-gauge regular needle. Under direct visualization with fluoroscopy, using a 22-gauge 3-1/2-inch spinal needle, the needle was advanced via the skin through the sacral hiatus. The tip of the needle was passed through the sacrococcygeal ligament and advanced to approximately S4 area. After negative aspiration of blood or CSF, a total of 3 mL of contrast was injected to confirm correct placement of the needle as well as cephalad spread. The spread was followed to approximately L5 area. After confirmation on AP as well as lateral view and repeated negative aspiration, a total of 15 mL of preservative-free 0.125% Marcaine with 80 mg of Depo-Medrol was injected easily. The needle was then removed intact. The patient experienced no sign or symptoms of intrathecal or intravascular injection. The patient experienced no paresthesia. The procedure was completed without any apparent difficulty or any complications. The patient appeared to tolerate it well. ASSESSMENT AND PLAN: This is a 64-year-old female with lumbosacral radiculopathy, lumbosacral degenerative disc disease, lumbosacral spinal stenosis status post caudal epidural steroid injection patient will continue current medications, patient will follow approximately 2 weeks for reevaluation.
--- NOTE | 2019-09-23 10:15 | RAD_ITS ---
PROCEDURE: Caudal block. DATE OF EXAMINATION: September 23, 2019. INDICATION: Female, 64 years old. Low back pain. FLUOROSCOPY TIME (if supplied): (9 seconds) minutes/seconds. 2 intraoperative images were obtained. Intraoperative imaging provided for caudal block. RAD/Fluor Guidance for Spine Inj IMPRESSION: Intraoperative imaging provided for caudal block. Electronically Signed: Sukhjinder Doss, at 10:52 EST , Service support ,
[2019-09-23] MEDS: Bupivacaine 0.25% 30 ML Vial (10:18)
[2019-09-23] MEDS: MethylPREDNISolone Acetate 80 MG/ML Vial (10:18)
[2019-09-23] MEDS: 0.9% Normal Saline (Pres. free 10 ML Vial (10:19)
== END 2019-09-23 11:30 | disposition home or self-care (01) ==
LOC: SDC 09:02 → AC 09:08
PROVIDERS: Family Provider Internal Medicine; PCP Internal Medicine; Referring Provider Anesthesiology Pain Medicine; Visit Provider Anesthesiology Pain Medicine
PROC: 3E0S3BZ Introduction of Anesthetic Agent into Epidural Space, Percutaneous Approach (ICD-10-PCS; CPT 62282; principal; 2019-09-23 10:10)
DX: M51.17 Intervertebral disc disorders with radiculopathy, lumbosacral region (principal); M48.07 Spinal stenosis, lumbosacral region; I10 Essential (primary) hypertension; E78.00 Pure hypercholesterolemia, unspecified; J44.9 Chronic obstructive pulmonary disease, unspecified; M06.9 Rheumatoid arthritis, unspecified; M96.1 Postlaminectomy syndrome, not elsewhere classified; M16.11 Unilateral primary osteoarthritis, right hip; M16.12 Unilateral primary osteoarthritis, left hip; M79.7 Fibromyalgia; M19.011 Primary osteoarthritis, right shoulder; M25.521 Pain in right elbow; M54.2 Cervicalgia; F90.9 Attention-deficit hyperactivity disorder, unspecified type; Z79.891 Long term (current) use of opiate analgesic; Z87.891 Personal history of nicotine dependence; Z98.1 Arthrodesis status
CPT/HCPCS: 62323; 64483; 77003; J7120; J3490

== ENCOUNTER → 2019-10-10 15:06 | Outpatient (CLI) | payer MEDICARE, MEDICAID, SELFPAY ==
[2019-10-04 15:15] VITALS: BMI 28.6
[2019-10-10 18:23] LABS: Absolute Lymphocyte Count 1.84 X10^3/uL (0.83-4.51); Absolute Neutrophil Count 2.9 X10^3/uL (2.0-7.7); Basophil# 0.07 X10^3/uL; Basophil% 1.2 % (0-1); Eosinophil# 0.56 X10^3/uL; Eosinophils% 9.6 % (0-5); Hematocrit 45.5 % (37-47); Hemoglobin 14.3 g/dL (12.0-15.0); Lymphocyte # 1.84 X10^3/ul (4.0); Lymphocyte % 31.6 % (19-41); Mean Corp Hgb Conc 31.4 g/dL (32-36); Mean Corpuscular Hgb 30.5 pg (27.0-32.0); Mean Platelet Vol. 10.8 fl (6.2-12.0); Monocyte# 0.49 X10^3/uL; Monocyte% 8.4 % (0-10); NRBC Flagged by Analyzer 0 % (0-5); Neutrophil # 2.85 X10^3/uL (2.7-7.7); Platelet Count 292 K/mm3 (150-450); RBC Distribution Width CV 13.7 % (11.6-14.6); RBC Distribution Width SD 47.8 fl (35.1-43.9); Red Blood Count 4.69 M/mm3 (4.2-5.4); White Blood Count 5.8 K/mm3 (4.4-11.0)
[2019-10-10 18:45] LABS: AST(SGOT) 15 U/L (15-37); Alanine Aminotransfer ALT/SGPT 28 U/L (13-56); Albumin, Serum 3.9 g/dL (3.2-5.0); BUN 19 mg/dL (7-18); CRP < 2.90 mg/L (0.0-3.0); Creatinine, Serum 1.09 mg/dL (0.55-1.02); EST Glomerular Filtration Rate 54 mL/min (>60); Est Glom Filt Rate - Afr Amer 65 mL/min (>60)
[2019-10-10 18:56] LABS: Vitamin B12 1774 pg/mL (211-911)
== END ==
PROVIDERS: PCP Internal Medicine; Referring Provider Internal Medicine Rheumatology; Visit Provider Internal Medicine Rheumatology
DX: M05.79 Rheumatoid arthritis with rheumatoid factor of multiple sites without organ or systems involvement (principal); E53.8 Deficiency of other specified B group vitamins
CPT/HCPCS: 36415; 82040; 82565; 82607; 84450; 84460; 84520; 85025; 86140

== ENCOUNTER → 2019-10-15 13:30 | Outpatient (CLI) | payer MEDICARE, MEDICAID, SELFPAY ==
[2019-07-15 15:25] VITALS: BMI 27.6
[2019-10-04 15:15] VITALS: BMI 28.6
--- NOTE | 2019-10-16 13:28 | PFT ---
INTRODUCTION: The patient is a 64-year-old -[place] female that presents for pulmonary function studies secondary to a diagnosis of asthma. Respiratory therapy reports good patient effort. Bronchodilators were used during testing. INTERPRETATION: Forced expiration spirometry demonstrates no evidence of a large airways obstructive ventilatory defect. There was no significant response to aerosolized bronchodilators, based upon strict ATS criteria. Spirograms are of good quality and plateau normally. Body plus tomography was performed and reveals lung volumes to be within normal limits. Diffusing capacity by single breath CO is also within normal limits. IMPRESSION: Normal pulmonary function studies without a notable bronchodilator response.
== END ==
PROVIDERS: Family Provider Internal Medicine; PCP Internal Medicine; Referring Provider Internal Medicine; Visit Provider Internal Medicine
DX: J45.909 Unspecified asthma, uncomplicated (principal); R06.02 Shortness of breath
CPT/HCPCS: 94060; 94726; 94729

== ENCOUNTER → 2019-11-19 14:09 | Outpatient (CLI) | payer MEDICARE, MEDICAID, SELFPAY ==
[2019-11-19 13:40] VITALS: BMI 28.7
[2019-11-19 14:12] LABS: Bacteria 0 SEEN /hpf (None Seen); Mucous, Urine 0 SEEN /hpf (<or=2+); Red Blood Cells-Urine 0 SEEN /hpf (0-5); White Blood Cells 0 SEEN /hpf (0-5)
[2019-11-19 15:17] LABS: Color, Urine Yellow (Yellow); Glucose, Dipstick Normal (Normal); Ketone-Dipstick Negative (Negative); Leukocyte Esterase-Dipstick Negative /ul (Negative); Nitrite-Dipstick Negative (Negative); Occult Blood-Urine Negative /ul (Negative); Protein-Dipstick Negative (Negative); Urine Bilirubin Dipstick Negative (Negative); Urine Clarity Cloudy (Clear); Urine Urobilinogen Normal (Normal)
[2019-11-19 15:28] LABS: Amorphous Sediment 2+ PHOS; Squamous Epithelial Cells - UA 0-5 SEEN /hpf (5-10)
[2019-11-19 18:25] LABS: Chlamydia Trachomatis by PCR Negative (Negative); Neisserai gonorrhoeae by PCR Negative (Negative); Probe Check PASS; Sample Adequacy Control PASS; Specimen Processing Control PASS
== END ==
PROVIDERS: PCP Internal Medicine; Referring Provider Nurse Practitioner Family; Visit Provider Nurse Practitioner Family
DX: R30.0 Dysuria (principal); Z72.51 High risk heterosexual behavior
CPT/HCPCS: 81001; 87086; 87210; 87491; 87591

== ENCOUNTER → 2020-01-06 15:47 | Outpatient (CLI) | payer MEDICARE, MEDICAID, SELFPAY ==
[2020-01-02 18:51] VITALS: BMI 28.7
--- NOTE | 2020-01-06 15:55 | RAD_ITS ---
STUDY: X-RAY - RIGHT KNEE REASON FOR EXAM: Female, 64 years old. right knee pain TECHNIQUE: 3 view(s) of the knee. COMPARISON: None. FINDINGS: Normal visualized distal femur. Normal visualized proximal tibia and fibula. Normal proximal tibiofibular articulation. Normal medial femorotibial compartment. Normal lateral femorotibial compartment. Normal patellofemoral articulation. The soft tissue structures are unremarkable. RAD/Knee 3 Views IMPRESSION: Normal x-ray examination of the knee. Electronically Signed: Louis Small MD at 16:21 EDT , Service support ,
--- NOTE | 2020-01-06 15:57 | RAD_ITS ---
STUDY: X-RAY - RIGHT HAND REASON FOR EXAM: Female, 64 years old. Rheumatoid arthritis, question that it is worsening, please compare to x-rays performed in 2019 TECHNIQUE: 3 view(s) of the hand. COMPARISON: Previous study of 11/16/2018 FINDINGS: There are mild degenerative changes of the radiocarpal joint. Normal distal radioulnar joint. Normal visualized carpal bones. Normal carpal articulations Normal carpometacarpal articulation of the thumb. Normal second through fifth carpometacarpal joints. Normal metacarpi. Normal metacarpophalangeal joint of the thumb. Normal interphalangeal joint of the thumb. Normal proximal and distal phalanges of the thumb. Normal metacarpophalangeal joints of the second through fifth fingers. Normal proximal and distal interphalangeal joints of the second through fifth fingers. Normal phalanges of the second through fifth fingers. The soft tissue structures are unremarkable. RAD/Hand Min 3 Views IMPRESSION: Mild degenerative changes of the radiocarpal articulation. No additional erosive or degenerative changes are apparent. Findings are similar to the previous study. Electronically Signed: Louis Small MD at 16:33 EDT , Service support ,
--- NOTE | 2020-01-06 16:00 | RAD_ITS ---
STUDY: X-RAY - LEFT HAND REASON FOR EXAM: Female, 64 years old. Rheumatoid arthritis, concern that it is worsening, please compare to x-rays performed in 2019 TECHNIQUE: 3 view(s) of the hand. COMPARISON: Prior study of 11/16/2018 FINDINGS: Normal radiocarpal articulation. Normal distal radioulnar joint. Normal visualized carpal bones. Normal carpal articulations Normal carpometacarpal articulation of the thumb. Normal second through fifth carpometacarpal joints. Normal metacarpi. Normal metacarpophalangeal joint of the thumb. Normal interphalangeal joint of the thumb. Normal proximal and distal phalanges of the thumb. Normal metacarpophalangeal joints of the second through fifth fingers. Normal proximal and distal interphalangeal joints of the second through fifth fingers. Normal phalanges of the second through fifth fingers. The soft tissue structures are unremarkable. RAD/Hand Min 3 Views IMPRESSION: Normal x-ray examination of the hand. Findings are similar to the previous study. Electronically Signed: Louis Small MD at 16:35 EDT , Service support ,
[2020-01-06 17:49] LABS: Absolute Neutrophil Count 2.2 X10^3/uL (2.0-7.7); Basophil# 0.05 X10^3/uL; Eosinophil# 0.41 X10^3/uL; Eosinophils% 7.8 % (0-5); Hematocrit 41.5 % (37-47); Hemoglobin 13.2 g/dL (12.0-15.0); Lymphocyte % 43.9 % (19-41); Mean Corp Hgb Conc 31.8 g/dL (32-36); Mean Corpuscular Hgb 31.9 pg (27.0-32.0); Mean Corpuscular Volume 100.2 fL (81-99); Mean Platelet Vol. 10.5 fl (6.2-12.0); Monocyte# 0.32 X10^3/uL; Monocyte% 6.1 % (0-10); NRBC Flagged by Analyzer 0 % (0-5); Neutrophil # 2.16 X10^3/uL (2.7-7.7); Neutrophil % 41.2 % (47-70); Platelet Count 237 K/mm3 (150-450); RBC Distribution Width CV 13.9 % (11.6-14.6); RBC Distribution Width SD 49.9 fl (35.1-43.9); Red Blood Count 4.14 M/mm3 (4.2-5.4); White Blood Count 5.2 K/mm3 (4.4-11.0)
[2020-01-06 17:56] LABS: AST(SGOT) 17 U/L (15-37); Alanine Aminotransfer ALT/SGPT 27 U/L (13-56); BUN 16 mg/dL (7-18); CRP < 2.90 mg/L (0.0-3.0); Creatinine, Serum 1.03 mg/dL (0.55-1.02); EST Glomerular Filtration Rate 57 mL/min (>60); Est Glom Filt Rate - Afr Amer 69 mL/min (>60)
== END ==
PROVIDERS: PCP Internal Medicine; Referring Provider Internal Medicine; Visit Provider Internal Medicine
DX: M05.79 Rheumatoid arthritis with rheumatoid factor of multiple sites without organ or systems involvement (principal); M25.561 Pain in right knee
CPT/HCPCS: 36415; 73130; 73562; 82565; 84450; 84460; 84520; 85025; 86140

== ENCOUNTER → 2020-01-30 11:58 | Outpatient (CLI) | payer MEDICARE, MEDICAID, SELFPAY ==
[2019-09-23 09:20] VITALS: BMI 28.7
[2020-01-21 09:40] VITALS: BMI 28.7
--- NOTE | 2020-01-30 11:59 | BI_ITS ---
MAMMOGRAPHY - BILATERAL SCREENING REASON FOR EXAM: Female, 64 years old. Routine annual screening examination. PERTINENT HISTORY: Non-contributory. TECHNIQUE: Digital bilateral breast kyree (3D mammographic acquisition) in the CC and MLO projections. 2-D mediolateral oblique (MLO) and craniocaudad (CC) views of both breasts were obtained. CAD: Full Field Digital Mammography with Computer Added Detection was performed. COMPARISON: Comparison is made with prior examination dated August 18, 2018 and August 15, 2017. FINDINGS: Breast Composition: The breasts are heterogeneously dense, which may obscure small masses. There are no dominant masses or suspicious calcifications. Stable benign-appearing bilateral axillary lymph nodes. No other significant abnormalities are identified. There has been no significant change since the prior study. BI/SCREEN MAMM (CAD) W/KYREE BILAT IMPRESSION: Stable bilateral screening mammogram. Yearly follow-up mammogram recommended. (A) ASSESSMENT CATEGORY: BIRADS Category 2: Benign. A letter regarding these results will be sent to the patient by the facility within 30 days. Approximately 10% of breast cancers are not detected by mammography. A normal mammogram should not delay biopsy of a clinically suspicious abnormality. [id number] Electronically Signed: Sukhjinder Doss, at 12:51 EDT , Service support ,
== END ==
PROVIDERS: PCP Internal Medicine; Referring Provider Internal Medicine; Visit Provider Internal Medicine
DX: Z12.31 Encounter for screening mammogram for malignant neoplasm of breast (principal)
CPT/HCPCS: 77063; 77067

== ENCOUNTER → 2020-01-30 12:37 | Outpatient (CLI) | payer MEDICARE, MEDICAID, SELFPAY ==
[2020-01-21 09:40] VITALS: BMI 28.7
[2020-01-30 15:54] LABS: T4 Free Direct 0.88 ng/dL (0.76-1.46); Thyroid Stim Hormone (TSH) 1.44 uIU/mL (0.358-3.74)
== END ==
PROVIDERS: PCP Internal Medicine; Referring Provider Internal Medicine; Visit Provider Internal Medicine
DX: Z12.31 Encounter for screening mammogram for malignant neoplasm of breast (principal); I10 Essential (primary) hypertension; Z13.29 Encounter for screening for other suspected endocrine disorder
CPT/HCPCS: 36415; 77063; 77067; 84439; 84443

== ENCOUNTER 2020-02-03 09:46 | Day surgery (SDC) | payer MEDICARE, MEDICAID, SELFPAY ==
[2020-01-21 09:40] VITALS: BMI 28.7
[2020-01-31 18:14] LABS: Probe Check PASS; SARS-COV-2 DNA by PCR Negative (Negative); Specimen Processing Control PASS
[2020-02-03] VITALS (8 sets, daily range): BP systolic 109–139; BP diastolic 70–82; PULSE 60–86; RESP 16–18; TEMP 36.1–37.3; O2SAT 86–98; BMI 29.7
[2020-02-03] MEDS: Lactated Ringers 1,000 ML 100 ML IV (10:22)
[2020-02-03] MEDS: Bupivacaine 0.25% 30 ML Vial (11:10)
--- NOTE | 2020-02-03 11:30 | RAD_ITS ---
PROCEDURE: Fluoroscopic imaging for spinal cord stimulator insertion. DATE OF EXAMINATION: February 03, 2020. INDICATION: Female, 64 years old. Chronic back pain. FLUOROSCOPY TIME (if supplied): (2 minutes and 9 seconds) minutes/seconds. 10 fluoroscopic images were obtained. Fluoroscopic imaging provided for spinal cord stimulator device placement. The tip of the electrodes is at the T7-T8 level. RAD/Lumbar Spine 2 or 3 Views IMPRESSION: Fluoroscopic services provided for spinal cord placement. Electronically Signed: Sukhjinder Doss, at 14:39 EDT , Service support ,
--- NOTE | 2020-02-03 15:08 | PCM.OPRPT ---
Report of Operation Date of Procedure: 02/03/20 Description of Surgical Findings:: PROCEDURES: 1. Spinal cord stimulator thoracolumbar leads placement x2, spinal cord stimulator simple programming, intraoperative fluoroscopic interpretation PREOPERATIVE DIAGNOSES: Lumbosacral radiculopathy, lumbosacral degenerative disc disease, postlaminectomy syndrome of the lumbar spine POSTOPERATIVE DIAGNOSES: Lumbosacral radiculopathy, lumbosacral degenerative disc disease, postlaminectomy syndrome of the lumbar spine ANESTHESIA: MAC COMPLICATIONS: None BLOOD LOSS: Minimal Implanted device: Spinal cord stimulator lead [id number] lot number [id number], spinal cord stimulator lead [id number] lot number [id number] PROCEDURE IN DETAIL: History and physical today was reviewed. Risks and benefits of procedure explained. The patient understood, agreed to procedure, informed consent was obtained. IV inserted per routine protocol. The patient was taken to the operating room, placed in the prone position with a pillow positioned underneath the abdomen. A 2 g of Ancef IV piggyback was infused per anesthesia. The lower back area was prepped and draped in a sterile fashion using iodine x3 and an Ioban sheath. The C-arm was brought in position for AP view at the L1-2 vertebral bodies under direct visualization fluoroscopy on a true AP view the L1-2 interlaminar space was identified skin and subcutaneous tissue and size approximately 10 cc of a mix of 2% lidocaine and 0.25% Marcaine using a 25-gauge regular needle followed by a 25-gauge 3-1/2 inch spinal needle towards the interlaminar space at L1-2, the skin and subcutaneous tissue were then incised using an 11-gauge blade was then taken down to the skin and subcutaneous tissue using a 14-gauge 3-1/2 inch Touhy needle provided by the [employer] kit the needle was passed through the skin towards the interlaminar space at L1-2 and a paramedian approach the needle was then advanced under direct visualization fluoroscopy towards the interlaminar space at L1-2 [id number] technique was then carried to air towards the interlaminar space at L1-2once the tip of the needle was in the epidural space and loss of resistance was encountered to air and after confirmation of AP as well as lateral view of the spinal cord stimulator lead was then advanced under direct visualization fluoroscopy to be at the tip of the lead at T8 and the bottom of the lead around mid T10 after confirmation of AP as well as lateral view to confirm correct placement of the lead in the posterior compartment of the epidural, the above was then repeated on the right at the interlaminar space L1-2 and the lead was then advanced under direct visualization with fluoroscopy to the right of the above lead with the tip of the lead in the middle of T8 and the bottom at the middle of T10 space the lead was then connected to the external neurostimulator and patient was then awakened to stimulate and coverage of the painful area, once satisfactory coverage was then achieved the stylette of each needle was then removed and the skin and subcutaneous tissue on to the left of the paramedian needles was then taken anesthetized with a total of 10 cc of the previous mixture of 0.25% Marcaine and 2% lidocaine using a 25-gauge regular needle the spinal cord stimulator lead was then kept in place and the spinal cord stimulator Touhy needle was then removed under direct visualization of fluoroscopy and a life manner to confirm correct placement of the lead and successful withdrawal of the Touhy needle the spinal cord stimulator lead was then secured to the skin and fascia with a bi-wing anchor provided by [employer] kit the anchors were then secured to the skin and subcutaneous?fascia with a 2-0 nylon the spinal cord stimulator lead and wing was then addressed in a sterile fashion using bacitracin and Tegaderm the external stimulator was then attached to the left lumbar area and secured to the patient back, hemostasis was then maintained during the procedure, patient was then returned into the supine position in a stable condition and returned to recovery in a stable condition patient experienced no sinus symptoms of intrathecal or intravascular injection patient experienced no paresthesia the procedure was completed without any apparent difficulty any complication the patient appeared to tolerate well, sensory as well as motor exam was unchanged from prior to the procedure ESTIMATED BLOOD LOSS: Minimal less than 10 mL ASSESSMENT AND PLAN: This is a 64-year-old female with Lumbosacral radiculopathy, lumbosacral degenerative disc disease, postlaminectomy syndrome of the lumbar spine status post, percutaneous spinal cord stimulator thoracolumbar leads placementX2 leads, spinal cord stimulator programming and intraoperative fluoroscopic interpretation patient will continue her current medications a prescription was provided to the patient for Keflex 500 mg 1 p.o. every 8 hours for 7 days postop instruction were given in writing to the patient as well as verbally and in writing patient will follow approximately 3 to 4 days for reevaluation.
== END 2020-02-03 13:06 | disposition home or self-care (01) ==
LOC: SDC 09:47 → AC 10:07
PROVIDERS: Anesthesiology; PCP Internal Medicine; Referring Provider Anesthesiology Pain Medicine; Visit Provider Anesthesiology Pain Medicine
PROC: (CPT 63650; principal; 2020-02-03 11:15)
DX: M51.36 Other intervertebral disc degeneration, lumbar region (principal); M51.17 Intervertebral disc disorders with radiculopathy, lumbosacral region; G89.29 Other chronic pain; M96.1 Postlaminectomy syndrome, not elsewhere classified; I10 Essential (primary) hypertension; E78.00 Pure hypercholesterolemia, unspecified; J44.9 Chronic obstructive pulmonary disease, unspecified; Z87.891 Personal history of nicotine dependence; M79.7 Fibromyalgia; M54.2 Cervicalgia; Z79.891 Long term (current) use of opiate analgesic; M19.011 Primary osteoarthritis, right shoulder; M16.12 Unilateral primary osteoarthritis, left hip; M16.11 Unilateral primary osteoarthritis, right hip; M47.817 Spondylosis without myelopathy or radiculopathy, lumbosacral region; Z11.59 Encounter for screening for other viral diseases
CPT/HCPCS: 63650 ×2; 72100; 76000; 87635; G2023; J7120; U0004

== ENCOUNTER 2020-03-09 10:22 | Day surgery (SDC) | payer MEDICARE, MEDICAID, SELFPAY ==
[2020-02-03 10:12] VITALS: BMI 29.7
[2020-03-04 13:09] VITALS: BMI 29.7
[2020-03-09] VITALS (10 sets, daily range): BP systolic 96–199; BP diastolic 62–77; PULSE 56–69; RESP 16; TEMP 35.9–36.6; O2SAT 98–100; BMI 29.5
[2020-03-09] MEDS: Lactated Ringers 1,000 ML 100 ML IV ×2 (11:25→14:34)
--- NOTE | 2020-03-09 12:00 | RAD_ITS ---
STUDY: X-RAY - LUMBAR SPINE REASON FOR EXAM: Female, 64 years old. SPINAL CORD STIMULATOR INSERTION TECHNIQUE: 10 Limited intraoperative view(s) of the lumbar spine were obtained. COMPARISON: None FINDINGS: 10 Limited intraoperative views of the lumbar spine were performed as the patient has undergone placement of a neural stimulator catheter. Tips appear to be in satisfactory position with no complications noted. RAD/Lumbar Spine 2 or 3 Views IMPRESSION: Satisfactory positioning of a neurostimulator catheter. Electronically Signed: Brayan Mackenzie MD at 15:08 EDT , Service support ,
[2020-03-09] MEDS: Cefazolin 2 GM in 0.9% Normal Saline 100 ML IV (12:03)
[2020-03-09] MEDS: Bupivacaine Mpf 0.5% 30 ML VIAL (12:25)
[2020-03-09] MEDS: 0.9% Normal Saline (Pres. free 10 ML Vial (12:55)
[2020-03-09] MEDS: Bacitracin 500 UNITS/GM PACKET (12:59)
[2020-03-09] MEDS: HYDROcodone Bitartrate/Apap 5/325 Tablet PO (15:19)
--- NOTE | 2020-03-09 15:54 | OP.PCM_ITS ---
Report of Operation Date of Procedure: 03/09/20 Description of Surgical Findings:: Pre-Operative Diagnosis: Lumbosacral radiculopathy, lumbosacral degenerative disc disease, lumbosacral spinal stenosis, postlaminectomy syndrome of the lumbar spine Post-Operative Diagnosis: Lumbosacral radiculopathy, lumbosacral degenerative disc disease, lumbosacral spinal stenosis, postlaminectomy syndrome of the lumbar spine Surgery/Procedure Performed:: 1. Spinal cord stimulator thoracolumbar leads placement x2 #2 spinal cord stimulator Medtronic intellus generator placement #3 spinal cord stimulator generator pocket creation at the left gluteal region #4 spinal cord stimulator simple programming, 5-intraoperative fluoroscopic interpretation Description of Surgical Findings:: PROCEDURES: 1. Spinal cord stimulator thoracolumbar leads placement x2 #2 spinal cord stimulator Medtronic intellus generator placement #3 spinal cord stimulator generator pocket creation at the left gluteal region #4 spinal cord stimulator simple programming 5-intraoperative fluoroscopic interpretation PREOPERATIVE DIAGNOSES: Lumbosacral radiculopathy, lumbosacral degenerative disc disease, lumbosacral spinal stenosis, postlaminectomy syndrome of the lumbar spine POSTOPERATIVE DIAGNOSES: Lumbosacral radiculopathy, lumbosacral degenerative disc disease, lumbosacral spinal stenosis, postlaminectomy syndrome of the lumbar spine ANESTHESIA: MAC COMPLICATIONS: None BLOOD LOSS: Minimal <25 CC Implanted device: Spinal cord stimulator lead [id number] lot number [id number], lead #2 lot number [id number], Medtronic spinal cord stimulator generator intellus serial number [id number] PROCEDURE IN DETAIL: History and physical today was reviewed. Risks and benefits of procedure explained. The patient understood, agreed to procedure, informed consent was obtained. IV inserted per routine protocol. The patient was taken to the operating room, placed in the prone position with a pillow positioned underneath the abdomen. A 2 g of Ancef IV piggyback was infused per anesthesia. The lower back and left gluteal area was prepped and draped in a sterile fashion using iodine x3. The C-arm was brought in position for AP view at the L3-4 vertebral bodies under direct visualization fluoroscopy on a true AP view the L3-4 interlaminar space was identified skin and subcutaneous tissue and size approximately 10 cc of a mix of 2% lidocaine and 0.25% Marcaine using a 25- gauge regular needle followed by a 25-gauge 3-1/2 inch spinal needle towards the interlaminar space at L3-4, the skin and subcutaneous tissue were then anesthetized and using an 11-gauge blade was then taken down to the skin and subcutaneous tissue using a 14-gauge 3-1/2 inch Touhy needle provided by the [employer] kit the needle was passed through the skin towards the interlaminar space at L3-4 and a paramedian approach the needle was then advanced under direct visualization fluoroscopy towards the interlaminar space at L3-4 [id number] technique was then carried to air towards the interlaminar space at L3-4 once the tip of the needle was in the epidural space and loss of resistance was encountered to air and after confirmation of AP as well as oblique view of the spinal cord stimulator lead was then advanced under direct visualization fluoroscopy to be at the tip of the lead at T8 and the bottom of the lead around mid T10 after confirmation of AP as well as lateral view to confirm correct placement of the lead in the posterior compartment of the epidural space the previous procedure was then repeated to a level above at L2-3 interlaminar space the second lead was then inserted under direct visualization with fluoroscopy to be at the mid T8 and mid T11 area the leads were were then connected to the external neurostimulator and patient was then awakened to confirm satisfactory coverage of the painful area once satisfactory coverage was then achieved the stylette of each needle was then removed and the skin and subcutaneous tissue on to the left of the paramedian needles was then taken anesthetized with a total of 10 cc of the previous mixture of 0.25% Marcaine and 2% lidocaine using a 25-gauge regular needle the incision was then taken down through the skin and subcutaneous tissue towards the fascia making sure hemostasis was then maintained via cautery, the spinal cord stimulator leads were then passed through the above incision and secured using the bi-wing and sutured down with a 2-0 nylon to the fascia at that level the spinal cord stimulator leads were then tunneled via a tunneler provided by the [employer] kit towards the previously incised spinal cord stimulator battery at the left gluteal region skin and subcutaneous tissue were anesthetized with approximately 10 cc of a mix of 2% lidocaine and 0.25% Marcaine using a 25 gauge regular needle, skin and subcutaneous tissue was then taken down with the 11-gauge blade hemostasis was maintained with Bovie and direct pressure the incision was then taken down to the fascia and the battery was then secured with the 2-0 silk sutures that were the spinal cord stimulator leads the upper lead was then marked the new until spinal cord stimulator battery was then provided Via [employer] kit the battery was then reattached of the spinal cord stimulator make ensure that the top lead is attached to the top position from 0-7 electrodes and the bottom from 8-15 electrodes once impedance was then checked to be in the proper average number the intellus battery was then inserted into the pocket and impedance with when checked again the pocket was then inspected to confirm he mostasis in place, the intellus battery was then secured to the fascia using a 2-0 silk to the upper and lower eyes of the battery confirming an upward writing of the intellus facing posterior, once complete confirmation the battery was then placed in the position and the the mid paramedian and the gluteal incisions were then closed primarily through a 3-0 Vicryl in a interrupted fashion followed by a 4-0 chromic to the skin, hemostasis was then maintained during the procedure the skin was then covered with a Steri-Strips and bacitracin patient was then returned into the supine position in a stable condition and returned to recovery in a stable condition patient experienced no signs or symptoms of intrathecal or intravascular injection patient experienced no paresthesia the procedure was completed without any apparent difficulty any complication the patient appeared to tolerate well, motor as well as sensory exam was unchanged from prior to the procedure. ESTIMATED BLOOD LOSS: Minimal less than 25 mL ASSESSMENT AND PLAN: This is a 64-year-old female with lumbosacral radiculopathy lumbosacral degenerative disc disease lumbosacral spinal stenosis, postlaminectomy syndrome of the lumbar spine, status post 1. Spinal cord stimulator thoracolumbar leads placement x2 #2 spinal cord stimulator Medtronic intellus generator placement #3 spinal cord stimulator generator pocket creation at the left gluteal region #4 spinal cord stimulator simple programming, 5-intraoperative fluoroscopic interpretation patient will continue her current medications a prescription was provided to the patient for norco 5/325 1 p.o. every 4 hours as needed acute postoperative pain and Keflex 500 mg 1 p.o. every 8 hours for 7 days postop instruction were given in writing to the patient as well as verbally and in writing to her sister patient will follow approximately 1 week for reevaluation.
== END 2020-03-09 15:56 | disposition home or self-care (01) ==
LOC: SDC 10:23 → AC 10:24
PROVIDERS: Anesthesiology; PCP Internal Medicine; Referring Provider Anesthesiology Pain Medicine; Visit Provider Anesthesiology Pain Medicine
PROC: (CPT 63685; principal; 2020-03-09 11:45)
DX: M51.36 Other intervertebral disc degeneration, lumbar region (principal); M48.07 Spinal stenosis, lumbosacral region; M51.17 Intervertebral disc disorders with radiculopathy, lumbosacral region; M96.1 Postlaminectomy syndrome, not elsewhere classified; E78.00 Pure hypercholesterolemia, unspecified; J44.9 Chronic obstructive pulmonary disease, unspecified; F32.9 Major depressive disorder, single episode, unspecified; M06.9 Rheumatoid arthritis, unspecified; M47.817 Spondylosis without myelopathy or radiculopathy, lumbosacral region; M79.7 Fibromyalgia; M51.37 Other intervertebral disc degeneration, lumbosacral region; M19.011 Primary osteoarthritis, right shoulder; M25.521 Pain in right elbow; M54.2 Cervicalgia; Z79.891 Long term (current) use of opiate analgesic; M16.0 Bilateral primary osteoarthritis of hip
CPT/HCPCS: 01936; 63650; 63685; 72100; 76000; 87635; C1778; G2023; J7120; J3490; U0003

== ENCOUNTER 2020-03-31 14:09 | Outpatient (RCR) | payer MEDICARE, MEDICAID, SELFPAY ==
[2020-03-09 11:09] VITALS: BMI 29.5
[2020-03-31 15:25] LABS: Absolute Neutrophil Count 2.1 X10^3/uL (2.0-7.7); Basophil# 0.07 X10^3/uL; Basophil% 1.1 % (0-1); Eosinophil# 0.84 X10^3/uL; Eosinophils% 13.7 % (0-5); Hematocrit 46.9 % (37-47); Hemoglobin 14.5 g/dL (12.0-15.0); Lymphocyte % 42.3 % (19-41); Mean Corp Hgb Conc 30.9 g/dL (32-36); Mean Corpuscular Hgb 30.3 pg (27.0-32.0); Mean Corpuscular Volume 97.9 fL (81-99); Mean Platelet Vol. 10.9 fl (6.2-12.0); Monocyte% 8.1 % (0-10); NRBC Flagged by Analyzer 0 % (0-5); Neutrophil # 2.13 X10^3/uL (2.7-7.7); Neutrophil % 34.8 % (47-70); Platelet Count 290 K/mm3 (150-450); RBC Distribution Width SD 46.3 fl (35.1-43.9); Red Blood Count 4.79 M/mm3 (4.2-5.4); White Blood Count 6.1 K/mm3 (4.4-11.0)
[2020-03-31 16:35] LABS: AST(SGOT) 16 U/L (15-37); Alanine Aminotransfer ALT/SGPT 27 U/L (13-56); BUN 11 mg/dL (7-18); EST Glomerular Filtration Rate 76 mL/min (>60); Est Glom Filt Rate - Afr Amer 92 mL/min (>60)
== END 2020-03-31 18:00 | disposition home or self-care (01) ==
LOC: MTLAB 14:09
PROVIDERS: PCP Internal Medicine; Referring Provider Internal Medicine Rheumatology; Visit Provider Internal Medicine Rheumatology
DX: M05.79 Rheumatoid arthritis with rheumatoid factor of multiple sites without organ or systems involvement (principal)
CPT/HCPCS: 36415; 82565; 84450; 84460; 84520; 85025

== ENCOUNTER 2020-06-01 15:15 | Outpatient (RCR) | payer MEDICARE, MEDICAID, SELFPAY ==
[2020-03-09 11:09] VITALS: BMI 29.5
[2020-04-21 13:09] VITALS: BMI 29.5
[2020-06-01 18:05] LABS: Absolute Lymphocyte Count 1.79 X10^3/uL (0.83-4.51); Absolute Neutrophil Count 2.2 X10^3/uL (2.0-7.7); Basophil# 0.08 X10^3/uL; Basophil% 1.5 % (0-1); Eosinophil# 0.82 X10^3/uL; Eosinophils% 15.2 % (0-5); Hematocrit 45.1 % (37-47); Lymphocyte # 1.79 X10^3/ul (4.0); Lymphocyte % 33.3 % (19-41); Mean Corpuscular Hgb 28.9 pg (27.0-32.0); Mean Platelet Vol. 10.8 fl (6.2-12.0); Monocyte# 0.49 X10^3/uL; Monocyte% 9.1 % (0-10); NRBC Flagged by Analyzer 0 % (0-5); Neutrophil # 2.19 X10^3/uL (2.7-7.7); Neutrophil % 40.7 % (47-70); Platelet Count 244 K/mm3 (150-450); RBC Distribution Width CV 12.9 % (11.6-14.6); RBC Distribution Width SD 44.2 fl (35.1-43.9); Red Blood Count 4.85 M/mm3 (4.2-5.4); White Blood Count 5.4 K/mm3 (4.4-11.0)
[2020-06-01 18:23] LABS: AST(SGOT) 19 U/L (15-37); Alanine Aminotransfer ALT/SGPT 22 U/L (13-56); BUN 16 mg/dL (7-18); Creatinine, Serum 0.69 mg/dL (0.55-1.02); EST Glomerular Filtration Rate 91 mL/min (>60); Est Glom Filt Rate - Afr Amer 110 mL/min (>60)
== END 2020-06-01 18:00 | disposition home or self-care (01) ==
LOC: MTLAB 15:15
PROVIDERS: PCP Internal Medicine; Referring Provider Internal Medicine Rheumatology; Visit Provider Internal Medicine Rheumatology
DX: M05.79 Rheumatoid arthritis with rheumatoid factor of multiple sites without organ or systems involvement (principal)
CPT/HCPCS: 36415; 82565; 84450; 84460; 84520; 85025

== ENCOUNTER → 2020-06-17 17:15 | Outpatient (CLI) | payer MEDICARE, MEDICAID, SELFPAY ==
[2020-06-16 14:55] VITALS: BMI 28.6
== END ==
PROVIDERS: PCP Internal Medicine; Visit Provider Physician Assistant Surgical
DX: Z20.828 Contact with and (suspected) exposure to other viral communicable diseases (principal)
CPT/HCPCS: 87635; C9803; U0003

== ENCOUNTER 2020-07-24 07:32 | Day surgery (SDC) | payer MEDICARE, MEDICAID, SELFPAY ==
[2020-06-16 14:55] VITALS: BMI 28.6
[2020-07-17 14:43] VITALS: BMI 26.8
[2020-07-24 07:48] VITALS: BP 139/90; PULSE 82; RESP 16; TEMP 35.9; O2SAT 95; BMI 28.6
[2020-07-24] MEDS: Lactated Ringers 1,000 ML 100 ML IV (08:06)
--- NOTE | 2020-07-24 09:33 | PCM.OPRPT ---
Report of Operation Date of Procedure: 07/24/20 Pre-Operative Diagnosis: Left trigger thumb Post-Operative Diagnosis: same Surgery/Procedure Performed:: Left A 1 adrianna release Type of Anesthesia:: Katia Mayberry Anesthesiologist: Alin Rothman - Kathy VTE Documentation VTE Present on Admission: No VTE Mechan Device Prophylaxis: SCD's VTE Pharm Prophylaxis ordered?: No Reason prophylaxis not ordered:: Treatment Not Indicated
[2020-07-24 09:45] VITALS: BP 117/83; BP 139/90; PULSE 78; RESP 16; TEMP 36.3; O2SAT 95
[2020-07-24 09:55] VITALS: BP 106/76; BP 139/90; PULSE 69; RESP 16; O2SAT 93
[2020-07-24 10:00] VITALS: BP 117/84; BP 139/90; PULSE 70; RESP 16; O2SAT 95
[2020-07-24 10:01] VITALS: BP 106/77; BP 139/90; PULSE 72; RESP 16; TEMP 36.6; O2SAT 93
[2020-07-24] MEDS: HYDROcodone Bitartrate/Apap 5/325 Tablet PO (10:58)
[2020-07-24 11:00] VITALS: BP 123/80; BP 139/90; PULSE 73; RESP 16; TEMP 36.6; O2SAT 96
== END 2020-07-24 11:20 | disposition home or self-care (01) ==
LOC: SDC 07:32 → AC 07:33
PROVIDERS: PCP Internal Medicine; Referring Provider Orthopaedic Surgery; Visit Provider Orthopaedic Surgery
PROC: (CPT 26055; principal; 2020-07-24 08:45)
DX: M65.312 Trigger thumb, left thumb (principal); M18.12 Unilateral primary osteoarthritis of first carpometacarpal joint, left hand; I10 Essential (primary) hypertension; E78.00 Pure hypercholesterolemia, unspecified; J45.909 Unspecified asthma, uncomplicated; F32.9 Major depressive disorder, single episode, unspecified; Z87.891 Personal history of nicotine dependence
CPT/HCPCS: 01810; 26055; 87426; C9803; J7120; A4216; J2405

== ENCOUNTER 2020-08-20 15:55 | Outpatient (RCR) | payer MEDICARE, MEDICAID, SELFPAY ==
[2020-04-21 13:09] VITALS: BMI 29.5
[2020-08-20 13:58] VITALS: BMI 28.8
--- NOTE | 2020-08-20 15:56 | RAD_ITS ---
STUDY: X-RAY - LEFT KNEE REASON FOR EXAM: Female, 65 years old. left knee pain, recent fall and a pop felt in the posterior TECHNIQUE: 4 view(s) of the knee. COMPARISON: 08/21/2017. FINDINGS: Normal visualized distal femur. Normal visualized proximal tibia and fibula. Normal proximal tibiofibular articulation. There is no demonstrated fracture. Normal medial femorotibial compartment. Normal lateral femorotibial compartment. Normal patellofemoral articulation. There is no demonstrated joint effusion. The soft tissue structures are unremarkable. RAD/Knee 4 or More Views IMPRESSION: Normal x-ray examination of the knee. Electronically Signed: Ted Skelton MD at 23:11 EST , Service support ,
[2020-08-20 18:07] LABS: Absolute Lymphocyte Count 2.04 X10^3/uL (0.83-4.51); Absolute Neutrophil Count 1.7 X10^3/uL (2.0-7.7); Basophil# 0.08 X10^3/uL; Basophil% 1.7 % (0-1); Eosinophil# 0.56 X10^3/uL; Eosinophils% 11.6 % (0-5); Hemoglobin 13.8 g/dL (12.0-15.0); Lymphocyte # 2.04 X10^3/ul (4.0); Lymphocyte % 42.2 % (19-41); Mean Corp Hgb Conc 31.4 g/dL (32-36); Mean Corpuscular Hgb 28.6 pg (27.0-32.0); Mean Corpuscular Volume 91.3 fL (81-99); Mean Platelet Vol. 11.5 fl (6.2-12.0); Monocyte# 0.47 X10^3/uL; Monocyte% 9.7 % (0-10); NRBC Flagged by Analyzer 0 % (0-5); Neutrophil # 1.67 X10^3/uL (2.7-7.7); Neutrophil % 34.6 % (47-70); Platelet Count 251 K/mm3 (150-450); RBC Distribution Width CV 13.5 % (11.6-14.6); RBC Distribution Width SD 45.7 fl (35.1-43.9); Red Blood Count 4.82 M/mm3 (4.2-5.4); White Blood Count 4.8 K/mm3 (4.4-11.0)
[2020-08-20 18:16] LABS: AST(SGOT) 25 U/L (15-37); Alanine Aminotransfer ALT/SGPT 33 U/L (13-56); BUN 13 mg/dL (7-18); Creatinine, Serum 0.77 mg/dL (0.55-1.02); EST Glomerular Filtration Rate 80 mL/min (>60); Est Glom Filt Rate - Afr Amer 97 mL/min (>60)
== END 2020-08-20 18:00 | disposition home or self-care (01) ==
LOC: MTLAB 15:55
PROVIDERS: PCP Internal Medicine; Referring Provider Internal Medicine Rheumatology; Visit Provider Internal Medicine Rheumatology
DX: M25.562 Pain in left knee (principal); M05.79 Rheumatoid arthritis with rheumatoid factor of multiple sites without organ or systems involvement
CPT/HCPCS: 36415; 73564; 82565; 84450; 84460; 84520; 85025

== ENCOUNTER 2020-10-14 15:00 | Outpatient (RCR) | payer MEDICARE, MEDICAID, SELFPAY ==
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
--- NOTE | 2020-10-14 16:03 | HP.PTDCSUM ---
It has been my pleasure to treat LELE AUGUSTE referred by Dr. Yady Vera MD, with the diagnosis of L knee pain for a total of 7 visit(s). Discharge Date: Please see the following information for a summary of their discharge status. Subjective: I am only in pain while i am on my knees L knee Pain Intensity (Out of 10): 0 % Improvement: 98 Objective/Function: L knee pain is 1/10, 5/10 at worst. L knee MMT: flex 4+/5, ext 4-/5. L knee ROM: 0-120. Pt is I with HEP. Pt has achieved Rx goals Goal 1:: Decrease L knee pain x 50% to aid with sleep Goal Progress: Goal Met Goal 2:: Increase L knee ROM x 20 degrees to aid with restoring a more normalized gait pattern Goal Progress: Goal Met Goal 3:: Increase L knee strength x 1 grade to aid with becoming I with IADL's Goal Progress: Goal Met Goal 4:: I with HEP Goal Progress: Goal Met Plan: Discharge If there are questions or concerns regarding this patient's physical therapy, please feel free to call me at [phone]. Thank you for the referral of this patient. Sincerely, Jonathan De La Garza, PT, ATC
== END 2020-10-14 19:00 | disposition home or self-care (01) ==
LOC: PT 15:00
PROVIDERS: PCP Internal Medicine; Referring Provider Internal Medicine; Visit Provider Internal Medicine
DX: M25.562 Pain in left knee (principal)
CPT/HCPCS: 97110; 97161; 97164

== ENCOUNTER 2020-11-10 14:08 | Outpatient (RCR) | payer MEDICARE, MEDICAID, SELFPAY ==
[2020-10-24 12:58] VITALS: BMI 27.8
[2020-11-10] MEDS: COVID-19 VACC, MRNA(PFIZER)/PF 30 MCG/0.3 ML SYRINGE IM (16:37)
[2020-12-01] MEDS: COVID-19 VACC, MRNA(PFIZER)/PF 30 MCG/0.3 ML SYRINGE IM (15:06)
== END 2021-02-09 23:59 ==
LOC: IMMUN 14:08
PROVIDERS: PCP Internal Medicine; Visit Provider Family Medicine
DX: Z23 Encounter for immunization (principal)
CPT/HCPCS: 0001A; 0002A; 91300

== ENCOUNTER → 2020-11-16 15:39 | Outpatient (CLI) | payer MEDICARE, MEDICAID, SELFPAY ==
[2020-10-24 12:58] VITALS: BMI 27.8
[2020-11-16 17:43] LABS: Absolute Lymphocyte Count 1.97 X10^3/uL (0.83-4.51); Absolute Neutrophil Count 1.3 X10^3/uL (2.0-7.7); Basophil# 0.07 X10^3/uL; Basophil% 1.6 % (0-1); Eosinophil# 0.82 X10^3/uL; Eosinophils% 18.3 % (0-5); Hematocrit 43.9 % (37-47); Hemoglobin 13.8 g/dL (12.0-15.0); Lymphocyte # 1.97 X10^3/ul (4.0); Lymphocyte % 44.1 % (19-41); Mean Corp Hgb Conc 31.4 g/dL (32-36); Mean Corpuscular Hgb 28.5 pg (27.0-32.0); Mean Corpuscular Volume 90.7 fL (81-99); Mean Platelet Vol. 10.9 fl (6.2-12.0); Monocyte# 0.33 X10^3/uL; Monocyte% 7.4 % (0-10); NRBC Flagged by Analyzer 0 % (0-5); Neutrophil # 1.27 X10^3/uL (2.7-7.7); Neutrophil % 28.4 % (47-70); Platelet Count 236 K/mm3 (150-450); RBC Distribution Width CV 13.4 % (11.6-14.6); RBC Distribution Width SD 44.5 fl (35.1-43.9); Red Blood Count 4.84 M/mm3 (4.2-5.4); White Blood Count 4.5 K/mm3 (4.4-11.0)
[2020-11-16 18:04] LABS: AST(SGOT) 16 U/L (15-37); Alanine Aminotransfer ALT/SGPT 25 U/L (13-56); Albumin, Serum 3.4 g/dL (3.2-5.0); BUN 9 mg/dL (7-18); CRP 5.03 mg/L (0.0-3.0); Creatinine, Serum 0.69 mg/dL (0.55-1.02); EST Glomerular Filtration Rate 90 mL/min (>60); Est Glom Filt Rate - Afr Amer 109 mL/min (>60)
== END ==
PROVIDERS: PCP Internal Medicine; Referring Provider Internal Medicine Rheumatology; Visit Provider Internal Medicine Rheumatology
DX: M05.79 Rheumatoid arthritis with rheumatoid factor of multiple sites without organ or systems involvement (principal)
CPT/HCPCS: 36415; 82040; 82565; 84450; 84460; 84520; 85025; 86140

== ENCOUNTER → 2020-12-30 14:59 | Outpatient (CLI) | payer MEDICARE, MEDICAID, SELFPAY ==
[2020-12-30 14:32] VITALS: BMI 28.6
[2020-12-30 17:08] LABS: Anion Gap 3 (5-15); BUN 14 mg/dL (7-18); BUN/Creat Ratio 17.6 RATIO (10-20); Calcium,Total 9.4 mg/dL (8.5-10.1); Chloride 107 mmol/L (98-107); Cholesterol 226 mg/dL (200); EST Glomerular Filtration Rate 77 mL/min (>60); Est Glom Filt Rate - Afr Amer 93 mL/min (>60); Glucose 122 mg/dL (74-106); High Density Lipoprotein 122 mg/dL; Potassium 4.1 mmol/L (3.5-5.1); Sodium Level 140 mmol/L (136-145); Triglycerides 87 mg/dL; Very Low Density Lipoprotein 17 mg/dL (5-40)
[2020-12-31 10:52] LABS: Hemoglobin A1c 5.5 % (3.8-5.6)
== END ==
PROVIDERS: PCP Internal Medicine; Referring Provider Internal Medicine; Visit Provider Internal Medicine
DX: I10 Essential (primary) hypertension (principal); R73.9 Hyperglycemia, unspecified
CPT/HCPCS: 36415; 80048; 80061; 83036

== ENCOUNTER → 2021-01-19 14:21 | Outpatient (CLI) | payer MEDICARE, MEDICAID, SELFPAY ==
[2021-01-05 13:18] VITALS: BMI 26.9
[2021-01-19 13:49] VITALS: BMI 27.1
--- NOTE | 2021-01-19 14:23 | CT_ITS ---
STUDY: LOW DOSE CT LUNG CANCER SCREENING REASON FOR EXAM: Female, 65 years old. Lung cancer screening -- 40 pack year history; asymptomatic; current smoker RADIATION DOSAGE (If Supplied By Facility): CTDIvol = ( 2.39 ) mGy, DLP = ( 65.80 ) mGycm TECHNIQUE: No contrast was administered. Low dose technique was utilized (average mAS-38 and kVp 120). 1.25 mm axial source images with a slice interval of 1.25-mm were reconstructed in lung windows. 2.5 mm axial source images with a slice interval of 2.5-mm were reconstructed in lung windows. 5.0 mm axial source images with a slice interval of 5.0-mm were reconstructed in soft tissue windows. Nodule measured using lung windows on PACS and/or independent workstation with automated measurement of minimum and maximum diameter. Nodule measurement reported as average diameter rounded to the nearest whole number. Growth is defined as an increase ins size of greater than 1.5 mm. COMPARISON: 09/10/2019 Lung windows show the lungs to be normally expanded. There is underlying emphysema with chronic interstitial changes and some tree-in-bud opacifications suggesting small airways inflammation. There are stable pneumatoceles in the left upper lobe. There is no organized infiltrate or effusion. Calcified coronary vessels noted. Bony structures show degenerative change. Limited cuts through the upper abdomen do not show a suspicious abnormality Overall, little significant interval change since the previous study CT/Low Dose CT Lung Screening IMPRESSION: Lung-RADS category 2 - Continue annual screening with LDCT in 12 months. IMPORTANT NOTES FOR USE: ACR Lung-RADS Version 1.1 Assessment Categories Release Date: 2018 Category: Coded 0-4 bases on nodule(s) with highest degree of suspicion. Negative screen is defined as categories 1 and 2; a positive screen is defined as categories 3 and 4. Category 3 and 4A nodules that are unchanged on interval CT should be coded as category 2, and individuals returned to screening in 12 months. Category 4X: Category 3 or 4 nodules with additional imaging findings that increase the suspicion of lung cancer, such as spiculation, GGN that doubles in size in 1 year, enlarged lymph notes, etc. Category Modifiers: S (significant finding unrelated to lung cancer) Electronically Signed: Brayan Mackenzie MD at 14:50 EDT , Service support ,
== END ==
PROVIDERS: PCP Internal Medicine; Referring Provider Nurse Practitioner Family; Visit Provider Nurse Practitioner Family
DX: Z12.2 Encounter for screening for malignant neoplasm of respiratory organs (principal); F17.218 Nicotine dependence, cigarettes, with other nicotine-induced disorders
CPT/HCPCS: 71271

== ENCOUNTER → 2021-02-03 14:54 | Outpatient (CLI) | payer MEDICARE, MEDICAID, SELFPAY ==
[2020-12-30 14:32] VITALS: BMI 28.6
[2021-01-26 13:09] VITALS: BMI 26.9
--- NOTE | 2021-02-03 14:56 | BI_ITS ---
MAMMOGRAPHY - BILATERAL SCREENING REASON FOR EXAM: Female, 65 years old. Routine annual screening examination. PERTINENT HISTORY: Non-contributory. TECHNIQUE: Digital bilateral breast kyree (3D mammographic acquisition) in the CC and MLO projections. 2-D mediolateral oblique (MLO) and craniocaudad (CC) views of both breasts were obtained. CAD: Full Field Digital Mammography with Computer Added Detection was performed. COMPARISON: Comparison is made with prior study dated 01/30/2020 and 08/18/2018. FINDINGS: Breast Composition: The breasts are heterogeneously dense, which may obscure small masses. There are no dominant masses or suspicious calcifications. Stable benign appearing bilateral axillary lymph nodes. No other significant abnormalities are identified. There has been no significant change since the prior study. BI/SCRN MAMM (CAD)W/KYREE BILAT IMPRESSION: Stable bilateral screening mammogram. Yearly follow-up mammogram recommended. (A) ASSESSMENT CATEGORY: BIRADS Category 2: Benign. A letter regarding these results will be sent to the patient by the facility within 30 days. Approximately 10% of breast cancers are not detected by mammography. A normal mammogram should not delay biopsy of a clinically suspicious abnormality. [id number] Electronically Signed: Sukhjinder Doss MD at 15:37 EDT , Service support ,
== END ==
PROVIDERS: PCP Internal Medicine; Referring Provider Internal Medicine; Visit Provider Internal Medicine
DX: Z12.31 Encounter for screening mammogram for malignant neoplasm of breast (principal)
CPT/HCPCS: 77063; 77067

== ENCOUNTER 2021-02-12 13:25 | Emergency (ER) | payer MEDICARE, MEDICAID, SELFPAY ==
[2021-01-26 13:09] VITALS: BMI 26.9
[2021-02-12 13:25] VITALS: BP 157/126; PULSE 80; RESP 18; TEMP 36.1; O2SAT 98; BMI 27.2
--- NOTE | 2021-02-12 14:07 | ED.RN ---
pt stated its too busy here and she will go to another facility
== END 2021-02-12 14:06 ==
LOC: ED 14:10
PROVIDERS: PCP Internal Medicine
DX: M54.9 Dorsalgia, unspecified (principal)

== ENCOUNTER → 2021-02-18 16:34 | Outpatient (CLI) | payer MEDICARE, MEDICAID, SELFPAY ==
[2021-02-18 15:04] VITALS: BMI 27.2
--- NOTE | 2021-02-18 16:34 | RAD_ITS ---
STUDY: X-RAY - LUMBAR SPINE REASON FOR EXAM: Female, 65 years old. Back Pain TECHNIQUE: 5 view(s) of the lumbar spine were obtained. COMPARISON: None FINDINGS: Normal lumbar lordosis. There is no substantial scoliosis. Grade 1 spondylolisthesis at L4-5 Postop change status post bilateral laminectomy and posterior fusion at L4-5 Normal vertebral bodies and endplates. Normal disc space heights. Dorsal spinal stimulator noted with electrodes extending into the thoracic spinal canal. RAD/L/S Spine Min 4 Views IMPRESSION: Mild degenerative changes and postop change status post bilateral laminectomy and posterior fusion at L4-5 Electronically Signed: Ric Altamirano MD at 22:00 EDT , Service support ,
== END ==
PROVIDERS: PCP Internal Medicine; Referring Provider Internal Medicine; Visit Provider Internal Medicine
DX: M54.9 Dorsalgia, unspecified (principal)
CPT/HCPCS: 72110

== ENCOUNTER → 2021-02-22 14:29 | Outpatient (CLI) | payer MEDICARE, MEDICAID, SELFPAY ==
[2021-02-18 15:04] VITALS: BMI 27.2
--- NOTE | 2021-02-22 14:30 | US_ITS ---
STUDY: SOFT TISSUE ULTRASOUND REASON FOR EXAM: Female, 65 years old. Jaw swelling TECHNIQUE: Ultrasound evaluation of the soft tissue at the mandible was performed with real-time and static shetty-scale imaging. COMPARISON: None. FINDINGS: Images of the soft tissue around the mandible demonstrate no collection or mass. No significant asymmetry. US/Head/Neck Soft Tissue IMPRESSION: No mass or fluid is noted in the area of concern. Electronically Signed: Jw Allan DO at 23:56 EDT Tel [phone], Service support ,
== END ==
PROVIDERS: PCP Internal Medicine; Referring Provider Internal Medicine; Visit Provider Internal Medicine
DX: R22.0 Localized swelling, mass and lump, head (principal)
CPT/HCPCS: 76536

== ENCOUNTER 2021-03-07 22:11 | Emergency (ER) | payer MEDICARE, MEDICAID, SELFPAY ==
[2021-03-04 13:53] VITALS: BMI 27.2
[2021-03-07 22:12] VITALS: BP 164/91; PULSE 74; RESP 18; TEMP 36.4; O2SAT 98; BMI 26.9
--- NOTE | 2021-03-07 22:40 | CT_ITS ---
STUDY: CT LUMBAR SPINE WITHOUT CONTRAST REASON FOR EXAM: Female, 65 years old. Back pain RADIATION DOSAGE (If Supplied By Facility): CTDIvol = ( 14.39 ) mGy, DLP = ( 346.12 ) mGycm TECHNIQUE: The patient was scanned in a multi detector CT scanner. High resolution transaxial imaging was performed. Images were obtained of the lumbar spine. Sagittal and coronal images were reconstructed. Individualized dose optimization techniques were used for this CT. COMPARISON: Lumbar spine series February 18, 2021. FINDINGS: Grade 1 spondylolisthesis L4 on L5. Posterior lumbar fusion L4-L5 with bilateral rods and pedicle screws. Laminectomies L4 and L5. Surgical hardware appears intact. There is no substantial scoliosis. Normal vertebrae of the lumbar spine. L1-2: Normal endplates. Normal disc height and morphology. Normal bilateral facet joints. Normal central canal and bilateral lateral recesses. Normal bilateral intervertebral neural foramina. L2-3: Normal endplates. Normal disc height and morphology. Normal bilateral facet joints. Normal central canal and bilateral lateral recesses. Normal bilateral intervertebral neural foramina. L3-4: Normal endplates. Normal disc height and morphology. Normal bilateral facet joints. Normal central canal and bilateral lateral recesses. Normal bilateral intervertebral neural foramina. Evaluation of the spinal canal is limited due to extensive streak artifact from posterior lumbar fusion. L4-5: Normal endplates. Normal disc height and morphology. Normal bilateral facet joints. Normal central canal and bilateral lateral recesses. Normal bilateral intervertebral neural foramina. Evaluation of the spinal canal is limited due to extensive streak artifact from posterior lumbar fusion. L5-S1: Normal endplates. Mild broad-based central disc bulge. Normal bilateral facet joints. Normal central canal and bilateral lateral recesses. Normal bilateral intervertebral neural foramina. Normal visualized paraspinous soft tissue structures. Atherosclerotic calcification distal abdominal aorta and common iliac arteries. Dorsal spinal stimulator electrodes enter the lower thoracic spinal canal. CT/Spine Lumbar without Contrast IMPRESSION: Posterior lumbar fusion L4-L5. No neural foraminal narrowing. L5-S1 mild broad-based central disc bulge. Limited evaluation of the spinal canal at L3-4 and L4-5 due to streak artifact. Electronically Signed: Faisal Castellano MD at 0:45 EDT , Service support ,
[2021-03-07] MEDS: Orphenadrine 60 MG/2 ML Ampul IM (22:59)
[2021-03-07] MEDS: Ketorolac 30 MG/ML Syringe IM (22:59)
--- NOTE | 2021-03-07 23:07 | ED.VIS.BACK ---
HPI History of Present Illness Chief Complaint: Back Informant: patient Onset/Context/Timing Onset: Today Injury: other (Vivitrol injection) Timing: Continuous Quality: Sharp, Aching, Burning and Throbbing Location: Lumbar Current Severity: Severe Maximum Severity: Severe Worsened by: improves with Movement Relieved by: - (Laying down) Associated Symptoms Associated Symptoms: Negative for Numbness, Tingling, Radiation to Right Leg, Radiation to Left Leg, Fever, Urinary Retention, Urinary Incontinence, Constipation and Fecal Incontinence Narrative Narrative: Patient presents with back pain that began after a Vivitrol injection on 02/11/2021. Patient states her pain has been constant during this time. Patient states she was placed on a course of prednisone which helped until she ran out of the prednisone. Patient states she was prescribed a second course of prednisone and is currently on this. Patient describes her pain as sharp, aching, burning, and throbbing. Patient states it is better whenever she lays down. Patient denies any fevers or chills. Patient has a spinal stimulator. [facility] Medical History Abnormal bruising ADD (attention deficit disorder) Anxiety and depression Asthma Back pain Cataracts, bilateral Chronic bronchitis Encounter for screening for malignant neoplasm of lung in current smoker with 30 pack year history or greater Eosinophilia Fatigue Hay fever History of alcohol abuse Hyperlipemia Hypertension Jaw swelling Neuropathy Post-menopausal Rheumatoid arthritis Seasonal allergies SOB (shortness of breath) Spinal cord stimulator status Tobacco use disorder, continuous Vitamin D deficiency Home Medications cholecalciferol (vitamin D3) 1,000 unit PO DAILY 01/04/18 [History Last Taken Unknown] calcium carbonate-vitamin D3 600 mg (1,500 mg)-400 unit capsule 1 cap PO BID #180 cap 01/24/19 [Rx Last Taken Unknown] flax seed oil 1 tab PO DAILY 04/06/20 [History Last Taken 11/05/20 13:13] leflunomide 20 mg tablet 20 mg PO DAILY 04/21/20 [History Last Taken Unknown] multivitamin,is-eoyw-ntehqzzt 1 tab PO DAILY 04/21/20 [History Last Taken Unknown] acyclovir 400 mg tablet 400 mg PO DAILY #90 tab 06/02/20 [Rx Last Taken Unknown] albuterol sulfate 2.5 mg INHALATION Q6H PRN #90 ml 06/16/20 [Rx Last Taken Unknown] duloxetine 30 mg capsule,delayed release 30 mg PO DAILY #90 cap 06/29/20 [Rx Last Taken Unknown] duloxetine 60 mg capsule,delayed release 60 mg PO DAILY #90 cap 06/29/20 [Rx Last Taken Unknown] pravastatin 40 mg tablet 40 mg PO MOWEFR #90 tab 08/03/20 [Rx Last Taken Unknown] albuterol sulfate 90 mcg/actuation aerosol inhaler 2 puff INHALATION Q6H PRN #8.5 g 08/24/20 [Rx Last Taken Unknown] amlodipine 10 mg tablet 10 mg PO DAILY #90 tab 09/30/20 [Rx Last Taken Unknown] blood pressure monitor #1 ea 09/30/20 [Rx Last Taken Unknown] pregabalin 50 mg capsule 75 mg PO BID cap 09/30/20 [History Last Taken Unknown] fluticasone propionate 50 mcg/actuation nasal spray,suspension 2 spray INTRANASAL DAILY PRN PRN #15.8 ml 10/09/20 [Rx Last Taken Unknown] pregabalin 75 mg capsule 75 mg PO DAILY 10/24/20 [History Last Taken Unknown] linaclotide 72 mcg capsule 72 mcg PO DAILY #90 cap 10/26/20 [Rx Last Taken Unknown] naltrexone microspheres 380 mg intramuscular suspension,extended release 380 mg IM QMONTH 12/30/20 [History Last Taken Unknown] celecoxib 100 mg capsule 100 mg PO DAILY 01/05/21 [History Last Taken Unknown] magnesium citrate 125 mg capsule 250 mg PO DAILY cap 01/05/21 [History Last Taken Unknown] folic acid 400 mcg tablet 0.4 mg PO BID tab 01/19/21 [History Last Taken Unknown] budesonide-formoterol HFA 80 mcg-4.5 mcg/actuation aerosol inhaler 2 puff INHALATION Q12H 90 Days #10.2 g 01/20/21 [Rx Last Taken Unknown] guanfacine 1 mg tablet,extended release 24 hr 1 mg PO DAILY #30 tab 03/04/21 [Rx Last Taken Unknown] methylprednisolone 4 mg tablets in a dose pack See Rx Instructions PO PER PKG DIR #21 tab 03/04/21 [Rx Last Taken Unknown] varenicline 1 mg tablet 1 mg PO BID #180 tab 03/04/21 [Rx Last Taken Unknown] Allergy/AdvReac Type Severity Reaction Status Date / Time Penicillins Allergy Hives Verified 03/07/21 22:13 benzonatate AdvReac Unknown Verified 03/07/21 22:13 [From [facility]] Family History Other Alcoholism Arthritis Asthma Heart disease Hyperlipemia Hypertension Surgical History History of back surgery History of carpal tunnel surgery History of foot surgery History of hysterectomy History of rotator cuff surgery Hx of shoulder surgery Status post trigger finger release Social History Smoking Status: Current every day smoker tobacco type: cigarettes Tobacco: How many years used: 40 second hand exposure: Yes quit status: considering quitting counseling given: provider counseling and support medications alcohol intake: former year quit: 2012 substance use type: does not use what type of physical activity do you participate in: walking ROS ROS ED Constitutional Constitutional ED: Denies chills or fever(s) Eyes Eyes: Denies blurry vision or change in vision ENT ENT ED: Denies rhinorrhea or sore throat Cardiovascular Cardiovascular: Denies chest pain or palpitations Respiratory/Chest Respiratory/Chest: Denies cough or dyspnea Gastrointestinal Gastrointestinal: Denies nausea or vomiting Genitourinary Genitourinary ED: Denies dysuria or hematuria Musculoskeletal Musculoskeletal: Reports back pain; Denies neck pain Integumentary Denies abscess or rash Neurologic Neurologic: Denies headache(s) or weakness Allergic/Immunologic Allergic/Immunologic ED: Denies mouth swelling or urticaria EXAM Physical Exam Const Vital Signs: 03/07/21 22:12 Temperature 97.6 F L Temperature Source Temporal Pulse Rate 74 Respiratory Rate 18 Blood Pressure 164/91 H Blood Pressure Mean 115 Pulse Ox 98 Oxygen Delivery Method Room Air Positive well nourished and well developed General Appearance ED: well developed HEENT Reports moist mucous membranes Neck supple and no JVD Back/Spine Back/Spine Narrative: There is tenderness over the lumbar spine and paraspinal muscles bilaterally. There is no bony crepitance or step-off. Range of motion was limited in all motions of the lumbar spine secondary to pain. Strength is 5/5 bilaterally in the lower extremities. Deep tendon reflexes are 2/4 bilaterally in the lower extremities. There are no sensory deficits noted. Lumbar Spine / Lower Back: straight leg raise negative bilaterally Neuro oriented x3 and no sensory deficits noted Sensorium / Orientation: alert Motor Exam: strength 5/5 throughout Deep Tendon Reflexes: Rt Patellar (L4): 2+, Lt Patellar (L4): 2+, Rt Ankle (S1): 2+ and Lt Ankle (S1): 2+ Deep Tendon Reflexes Back: Rt Patellar (L4): 2+, Lt Patellar (L4): 2+, Rt Ankle (S1): 2+ and Lt Ankle (S1): 2+ Psych mental status grossly normal MDM MDM MDM Narrative Medical decision making narrative: Patient was given injections of Toradol and Norflex here. Patient had minimal relief with this. CT scan of the lumbar spine was obtained. There is no neural foramina narrowing. There is a mild central disc bulge at L5-S1. There is no acute fracture. There is no evidence of any abscess. This was interpreted by the radiologist and reviewed by myself. Patient was given a dose of morphine here. Patient was instructed to follow-up with her primary care physician and pain management physician for further management of her pain. Patient understood and was agreeable with the plan. All questions were answered. Radiography Diagnostic Testing: Radiology Impression Lumbar Spine CT 03/07/21 22:40 IMPRESSION: Posterior lumbar fusion L4-L5. No neural foraminal narrowing. L5-S1 mild broad-based central disc bulge. Limited evaluation of the spinal canal at L3-4 and L4-5 due to streak artifact. Electronically Signed: Faisal Castellano MD at 0:45 EDT , Service support , Discharge Plan Triage Chief Complaint: Back ED Provider: Jerald Beard Dx/Rx/DC Orders Clinical Impression: Acute low back pain Instructions: ED Back Pain (Acute or Chronic) Prescriptions: No Action flax seed oil 1,000 mg tablet 1 tab PO DAILY RF: 0 leflunomide 20 mg tablet 20 mg PO DAILY RF: 0 multivitamin,uo-mjvf-ijwyqxzc tablet 1 tab PO DAILY RF: 0 amlodipine 10 mg tablet 10 mg PO DAILY Qty: 90 RF: 3 (DME) blood pressure monitor [Blood Pressure Kit] Kit See Rx Instructions .ROUTE .MEDSUPPLY Qty: 1 RF: 0 Vivitrol 380 mg suspension,extended rel recon 380 mg IM QMONTH RF: 0 pregabalin [Lyrica] 75 mg capsule 75 mg PO DAILY RF: 0 magnesium citrate 125 mg capsule 250 mg PO DAILY RF: 0 celecoxib [Celebrex] 100 mg capsule 100 mg PO DAILY RF: 0 folic acid 400 mcg tablet 0.4 mg PO BID RF: 0 guanfacine 1 mg tablet extended release 24 hr 1 mg PO DAILY Qty: 30 RF: 1 varenicline 1 mg tablet 1 mg PO BID Qty: 180 RF: 1 methylprednisolone [Medrol (Jose M)] 4 mg tablets,dose pack See Rx Instructions PO PER PKG DIR Qty: 21 RF: 0 cholecalciferol (vitamin D3) 1,000 UNIT capsule 1,000 unit PO DAILY RF: 0 pregabalin 50 mg capsule 75 mg PO BID RF: 0 calcium carbonate-vitamin D3 600 mg (1,500 mg)-400 unit capsule 600 mg(1,500mg) -400 unit capsule 1 cap PO BID Qty: 180 RF: 3 acyclovir 400 mg tablet 400 mg PO DAILY Qty: 90 RF: 3 albuterol sulfate 2.5 mg /3 mL (0.083 %) solution for nebulization 2.5 mg INHALATION Q6H PRN (Reason: shortness of breath or wheezing) Qty: 90 RF: 2 duloxetine [Cymbalta] 60 mg capsule,delayed release(DR/EC) 60 mg PO DAILY Qty: 90 RF: 3 duloxetine [Cymbalta] 30 mg capsule,delayed release(DR/EC) 30 mg PO DAILY Qty: 90 RF: 3 pravastatin 40 mg tablet 40 mg PO MOWEFR Qty: 90 RF: 3 albuterol sulfate [ProAir HFA] 90 mcg/actuation HFA aerosol inhaler 2 puff INHALATION Q6H PRN (Reason: shortness of breath or wheezing) Qty: 8.5 RF: 3 fluticasone propionate 50 mcg/actuation spray,suspension 2 spray INTRANASAL DAILY PRN PRN (Reason: Allergies) Qty: 15.8 RF: 3 linaclotide 72 mcg capsule 72 mcg PO DAILY Qty: 90 RF: 2 budesonide-formoterol [Symbicort] 80-4.5 mcg/actuation HFA aerosol inhaler 2 puff INHALATION Q12H 90 Days Qty: 10.2 RF: 3 Primary Care Provider: Yady Vera Referrals: Yady Vera MD [Primary Care Provider] - 3-5 Days Disposition Disposition: Home, Self Care Discharge Date/Time: 03/08/21 02:38
[2021-03-08] MEDS: Morphine 4 MG/ML Syringe SC (02:36)
== END 2021-03-08 02:38 | disposition home or self-care (01) ==
PROVIDERS: Emergency Provider Emergency Medicine; PCP Internal Medicine
DX: M54.9 Dorsalgia, unspecified (principal); F98.8 Other specified behavioral and emotional disorders with onset usually occurring in childhood and adolescence; I10 Essential (primary) hypertension; E78.5 Hyperlipidemia, unspecified; M10.9 Gout, unspecified; F17.210 Nicotine dependence, cigarettes, uncomplicated
CPT/HCPCS: 72131; 96372; 99283

== ENCOUNTER → 2021-03-17 14:22 | Outpatient (CLI) | payer MEDICARE, MEDICAID, SELFPAY ==
[2021-02-18 15:04] VITALS: BMI 27.2
[2021-03-07 22:12] VITALS: BMI 26.9
--- NOTE | 2021-03-17 14:59 | EKG12_ITS ---
Test Reason : PRE OP Blood Pressure : / mmHG Vent. Rate : 069 BPM Atrial Rate : 069 BPM P-R Int : 112 ms QRS Dur : 068 ms QT Int : 358 ms P-R-T Axes : 035 001 140 degrees QTc Int : 383 ms Normal sinus rhythm Nonspecific T wave abnormality Abnormal ECG Confirmed by MARINA MCADAMS, GLORIA ([id number]), restaurant expeditor AP CUBA ([id number]) on 03/18/2021 9:08:25 AM Referred By: Shorty Murray Confirmed By:GLORIA GRAY MD
[2021-03-17 16:19] LABS: Absolute Lymphocyte Count 1.07 X10^3/uL (0.83-4.51); Basophil# 0.06 X10^3/uL; Basophil% 0.7 % (0-1); Eosinophil# 0.09 X10^3/uL; Hemoglobin 13.8 g/dL (12.0-15.0); Lymphocyte # 1.07 X10^3/ul (0.83-4.51); Lymphocyte % 12.2 % (19-41); Mean Corp Hgb Conc 31.4 g/dL (32-36); Mean Corpuscular Hgb 29.4 pg (27.0-32.0); Mean Corpuscular Volume 93.8 fL (81-99); Mean Platelet Vol. 10.9 fl (6.2-12.0); Monocyte# 0.44 X10^3/uL; NRBC Flagged by Analyzer 0 % (0-5); Neutrophil # 7.04 X10^3/uL (2.7-7.7); Neutrophil % 80.4 % (47-70); Platelet Count 303 K/mm3 (150-450); RBC Distribution Width CV 13.4 % (11.6-14.6); Red Blood Count 4.69 M/mm3 (4.2-5.4); White Blood Count 8.8 K/mm3 (4.4-11.0)
[2021-03-17 16:32] LABS: Hemoglobin A1c 5.7 % (3.8-5.6)
[2021-03-17 16:46] LABS: International Normalized Ratio 0.9; Prothrombin Time (Protime)PT. 11.8 SECONDS (11.7-14.9)
[2021-03-17 16:47] LABS: Partial Thromboplast Time 26.4 Seconds (24.1-36.2)
[2021-03-17 16:55] LABS: AST(SGOT) 17 U/L (15-37); Alanine Aminotransfer ALT/SGPT 29 U/L (13-56); Albumin, Serum 3.5 g/dL (3.2-5.0); Anion Gap 6 (5-15); BUN 18 mg/dL (7-18); CRP < 2.90 mg/L (0.0-3.0); Calcium,Total 9.6 mg/dL (8.5-10.1); Chloride 106 mmol/L (98-107); EST Glomerular Filtration Rate 66 mL/min (>60); Est Glom Filt Rate - Afr Amer 80 mL/min (>60); Glucose 118 mg/dL (74-106); Potassium 3.4 mmol/L (3.5-5.1); Sodium Level 142 mmol/L (136-145)
== END ==
PROVIDERS: PCP Internal Medicine; Referring Provider Podiatrist Foot & Ankle Surgery; Visit Provider Podiatrist Foot & Ankle Surgery
DX: Z01.818 Encounter for other preprocedural examination (principal); Z01.810 Encounter for preprocedural cardiovascular examination; R94.31 Abnormal electrocardiogram [ECG] [EKG]; M05.79 Rheumatoid arthritis with rheumatoid factor of multiple sites without organ or systems involvement
CPT/HCPCS: 36415; 80048; 82040; 83036; 84450; 84460; 85025; 85610; 85730; 86140; 93005

== ENCOUNTER → 2021-06-08 14:48 | Outpatient (CLI) | payer MEDICARE, SELFPAY ==
[2021-06-08 17:38] LABS: Absolute Neutrophil Count 2.1 X10^3/uL (2.0-7.7); Basophil# 0.09 X10^3/uL; Basophil% 1.8 % (0-1); Eosinophil# 0.66 X10^3/uL; Eosinophils% 13.1 % (0-5); Hematocrit 44.3 % (37-47); Hemoglobin 13.8 g/dL (12.0-15.0); Lymphocyte % 31.8 % (19-41); Mean Corp Hgb Conc 31.2 g/dL (32-36); Mean Corpuscular Hgb 29.7 pg (27.0-32.0); Mean Corpuscular Volume 95.3 fL (81-99); Mean Platelet Vol. 11.5 fl (6.2-12.0); Monocyte# 0.55 X10^3/uL; Monocyte% 10.9 % (0-10); NRBC Flagged by Analyzer 0 % (0-5); Neutrophil # 2.12 X10^3/uL (2.7-7.7); Neutrophil % 42.2 % (47-70); Platelet Count 229 K/mm3 (150-450); RBC Distribution Width CV 13.3 % (11.6-14.6); RBC Distribution Width SD 46.9 fl (35.1-43.9); Red Blood Count 4.65 M/mm3 (4.2-5.4)
[2021-06-08 18:10] LABS: AST(SGOT) 17 U/L (15-37); Alanine Aminotransfer ALT/SGPT 25 U/L (13-56); Albumin, Serum 3.5 g/dL (3.2-5.0); BUN 14 mg/dL (7-18); CRP < 2.90 mg/L (0.0-3.0); Creatinine, Serum 0.77 mg/dL (0.55-1.02); EST Glomerular Filtration Rate 79 mL/min (>60); Est Glom Filt Rate - Afr Amer 96 mL/min (>60)
== END ==
PROVIDERS: PCP Internal Medicine; Referring Provider Internal Medicine Rheumatology; Visit Provider Internal Medicine Rheumatology
DX: M05.79 Rheumatoid arthritis with rheumatoid factor of multiple sites without organ or systems involvement (principal)
CPT/HCPCS: 36415; 82040; 82565; 84450; 84460; 84520; 85025; 86140

== ENCOUNTER → 2021-06-16 06:31 | Outpatient (CLI) | payer MEDICARE, MEDICAID, SELFPAY ==
--- NOTE | 2021-06-16 06:36 | ECHOD_ITS ---
Reason For Study: HTN Procedure This was a 2D Doppler, Color Flow transthoracic echocardiogram. Exam performed in department. Left Ventricle Normal left ventricle. Left ventricular systolic function is normal. The estimated ejection fraction is 60 %. Stage 1 diastolic dysfunction. No regional wall motion abnormalities noted. Right Ventricle Normal RV size. Normal systolic function. Atria Normal left atrium. Normal right atrium. Mitral Valve Normal mitral valve. Mild (1+) eccentric mitral valve insufficiency. Tricuspid Valve Normal tricuspid valve. Aortic Valve Normal aortic valve. Trisinus/trileaflet aortic valve. Pulmonic Valve Normal pulmonic valve. Great Vessels Normal aortic root. The pulmonary artery is normal size. Normal inferior vena cava. Pericardium/Pleural No pericardial effusion. MMode/2D Measurements & Calculations LVIDd: 4.0 cm IVSd: 1.1 cm Ao root diam: 2.7 cm LVIDs: 2.5 cm LVPWd: 1.1 cm RVDd: 2.3 cm FS: 37.1 % LAV(MOD-bp): 26.0 ml LVAd ap4: 17.2 cm2 SV(MOD-sp4): 31.1 ml LAV(MOD-bp) Indexed: 16.8 ml/m2 LVLd ap4: 5.6 cm LAV(MOD-sp2): 24.8 ml EDV(MOD-sp4): 45.5 ml LAV(MOD-sp4): 24.5 ml EDV(sp4-el): 45.3 ml LVAs ap4: 8.7 cm2 LVLs ap4: 4.6 cm ESV(MOD-sp4): 14.3 ml ESV(sp4-el): 13.9 ml EF(MOD-sp4): 68.5 % EF(sp4-el): 69.5 % SV(sp4-el): 31.5 ml LA A4 area: 11.4 cm2 LA dimension(2D): 2.7 cm RA A4 area: 9.1 cm2 Doppler Measurements & Calculations MV E max dale: 71.3 cm/sec Lat Peak E' Dale: 7.7 cm/sec Med Peak E' Dale: 4.4 cm/sec MV A max dale: 100.4 cm/sec E/E' lat: 9.3 E/E' med: 16.3 MV E/A: 0.71 Ao V2 max: 146.7 cm/sec LV V1 max: 112.9 cm/sec PA V2 max: 94.4 cm/sec Ao max P.6 mmHg LV V1 max P.1 mmHg Ao V2 mean: 101.1 cm/sec Ao mean P.4 mmHg Ao V2 VTI: 30.2 cm TR max dale: 262.4 cm/sec TR max P.5 mmHg ECHO/Echo Complete Interpretation Summary Normal left ventricle. Left ventricular systolic function is normal. The estimated ejection fraction is 60 %. Stage 1 diastolic dysfunction. Ordering Physician: Krystian Hernandez Referring Physician: Yady Vera Performed By: Jewels Bynum, ALFONSO, RVT
--- NOTE | 2021-06-16 13:02 | STRESSREP_ITS ---
Stress Test Report Pharmacologic myocardial perfusion stress test. 66-year-old lady with a history of chest pain. Stress protocol: Resting EKG demonstrates normal sinus rhythm with a rate of 62 bpm T wave inversions noted in leads II, III and aVF V4 through V6. Resting blood pressure is 142/84 mmHg. 0.4 mg of regadenoson was infused per usual protocol followed by rapid intravenous saline flush injection continuous EKG monitoring was performed. The maximum heart rate attained was 89 bpm which was 58% of max infected heart rate the maximum workload was 1 metabolic equivalent. At rest there were no ST or T wave changes noted to suggest abnormal flow reserve and at peak infusion nonspecific ST changes were noted. No evidence of abnormal flow reserve or ischemia was noted. Myocardial perfusion protocol. 10.5 mCi of technetium 99m sestamibi was injected at rest. 0.4 mg of regadenoson was infused per usual protocol. At peak infusion 33.3 mCi of t echnetium 99m sestamibi was injected stress images were obtained stress and rest images were reconstructed and compared in the short axis vertical long and horizontal long axis. Gated images were also obtained. Perfusion SPECT analysis: Review of the stress images demonstrate normal uptake of tracer noted in all areas of the myocardium. The resting images similarly demonstrate normal uptake of tracer noted in all areas of the myocardium. No areas of reversibility are noted to suggest ischemia and no previous infarct is noted. Gated SPECT analysis: The gated ejection fraction is noted to be 64%. Conclusion: Normal myocardial perfusion stress test with no evidence of ischemia. Preserved ejection fraction.
== END ==
PROVIDERS: PCP Internal Medicine; Referring Provider Internal Medicine Cardiovascular Disease; Visit Provider Internal Medicine Cardiovascular Disease
DX: R94.31 Abnormal electrocardiogram [ECG] [EKG] (principal); E78.5 Hyperlipidemia, unspecified
CPT/HCPCS: 78452; 93017; 93306; A9500; A4216; J2785

== ENCOUNTER → 2021-07-14 14:04 | Outpatient (CLI) | payer MEDICARE, MEDICAID, SELFPAY ==
[2021-07-14 15:26] LABS: Anion Gap 4 (5-15); BUN 12 mg/dL (7-18); BUN/Creat Ratio 15.2 RATIO (10-20); Calcium,Total 9.3 mg/dL (8.5-10.1); Chloride 108 mmol/L (98-107); Creatinine, Serum 0.79 mg/dL (0.55-1.02); EST Glomerular Filtration Rate 77 mL/min (>60); Est Glom Filt Rate - Afr Amer 93 mL/min (>60); Glucose 118 mg/dL (74-106); Potassium 3.8 mmol/L (3.5-5.1); Sodium Level 140 mmol/L (136-145)
[2021-07-14 15:34] LABS: Hemoglobin A1c 5.6 % (3.8-5.6)
== END ==
PROVIDERS: PCP Internal Medicine; Referring Provider Internal Medicine; Visit Provider Internal Medicine
DX: R73.03 Prediabetes (principal); I10 Essential (primary) hypertension
CPT/HCPCS: 36415; 80048; 83036

== ENCOUNTER 2021-09-28 15:21 | Outpatient (RCR) | payer MEDICARE, MEDICAID, SELFPAY ==
[2021-09-28 17:57] LABS: Absolute Lymphocyte Count 2.19 X10^3/uL (0.83-4.51); Absolute Neutrophil Count 2.2 X10^3/uL (2.0-7.7); Basophil# 0.07 X10^3/uL; Basophil% 1.3 % (0-1); Eosinophil# 0.69 X10^3/uL; Eosinophils% 12.4 % (0-5); Hematocrit 43.5 % (37-47); Hemoglobin 13.7 g/dL (12.0-15.0); Lymphocyte # 2.19 X10^3/ul (0.83-4.51); Lymphocyte % 39.2 % (19-41); Mean Corp Hgb Conc 31.5 g/dL (32-36); Mean Corpuscular Hgb 28.7 pg (27.0-32.0); Mean Corpuscular Volume 91.2 fL (81-99); Mean Platelet Vol. 11.3 fl (6.2-12.0); Monocyte# 0.42 X10^3/uL; Monocyte% 7.5 % (0-10); NRBC Flagged by Analyzer 0 % (0-5); Neutrophil % 39.4 % (47-70); Platelet Count 276 K/mm3 (150-450); RBC Distribution Width CV 13.3 % (11.6-14.6); RBC Distribution Width SD 45.1 fl (35.1-43.9); Red Blood Count 4.77 M/mm3 (4.2-5.4); White Blood Count 5.6 K/mm3 (4.4-11.0)
[2021-09-28 17:58] LABS: AST(SGOT) 26 U/L (15-37); Alanine Aminotransfer ALT/SGPT 35 U/L (13-56); Albumin, Serum 3.8 g/dL (3.2-5.0); BUN 22 mg/dL (7-18); CRP < 2.90 mg/L (0.0-3.0); Creatinine, Serum 0.83 mg/dL (0.55-1.02); EST Glomerular Filtration Rate 73 mL/min (>60); Est Glom Filt Rate - Afr Amer 88 mL/min (>60)
== END 2021-10-04 18:00 | disposition home or self-care (01) ==
LOC: MTLAB 15:21
PROVIDERS: PCP Internal Medicine; Referring Provider Internal Medicine Rheumatology; Visit Provider Internal Medicine Rheumatology
DX: M05.79 Rheumatoid arthritis with rheumatoid factor of multiple sites without organ or systems involvement (principal)
CPT/HCPCS: 36415; 82040; 82565; 84450; 84460; 84520; 85025; 86140

== ENCOUNTER 2021-11-23 09:29 | Outpatient (CLI) | payer MEDICARE, MEDICAID, SELFPAY ==
--- NOTE | 2021-11-24 07:18 | PFT_ITS ---
INTRODUCTION: The patient is a 66-year-old -[place] female that presents for pulmonary function studies secondary to a diagnosis of shortness of breath. Respiratory therapy reported good patient effort. Bronchodilators were used during testing. INTERPRETATION: Forced expiration spirometry demonstrates no evidence of a large airways obstructive ventilatory defect. There was no significant response to aerosolized bronchodilators. Spirograms are of good quality and plateau normally. Body plethysmography was performed and reveals lung volumes to be within normal limits. Diffusing capacity by single breath CO is also within normal limits. IMPRESSION: Grossly normal pulmonary function studies.
== END 2021-11-23 23:59 | disposition home or self-care (01) ==
LOC: PSN 09:31
PROVIDERS: PCP Internal Medicine; Referring Provider Internal Medicine Critical Care Medicine; Visit Provider Internal Medicine Critical Care Medicine
DX: R06.02 Shortness of breath (principal)
CPT/HCPCS: 94060; 94726; 94729

== ENCOUNTER 2021-11-25 12:32 | Outpatient (CLI) | payer MEDICARE, MEDICAID, SELFPAY ==
[2021-11-25 12:54] VITALS: PULSE 103; PULSE 105; PULSE 75; PULSE 81; PULSE 90; PULSE 96; PULSE 97; PULSE 99; O2SAT 93; O2SAT 94; O2SAT 95; O2SAT 96; O2SAT 97
--- NOTE | 2021-11-26 07:26 | PCM.PSN.6M ---
PSN 6 Minute Walk Test 6 Minute Walk Test 6 Minute Walk Test: 6 Minute Walk Test PSN:6-Minute Walk Test Start: 11/25/21 12:54 Freq: Status: Active Protocol: RESP.6MINW Document 11/25/21 12:54 CHIDI (Rec: 11/25/21 12:56 CHIDI [id number]) 6 Minute Walk Test Date Performed 11/25/21 Time Performed 12:30 Height 4 ft 11 in Weight: 65.317 kg Weight in Pounds 144.[address]: Buddy Herrera Assistive device used: None Pre-test Oxygen Delivery Method Room Air Pulse Ox (%) 96 Pulse Rate (60-100 beats/min) 75 Dyspnea Cristo Scale (0-10) 0 Exertion Cristo Scale (6-20) 6 1st minute Oxygen Delivery Method Room Air Pulse Ox (%) 96 Pulse Rate (60-100 beats/min) 90 2nd minute Oxygen Delivery Method Room Air Pulse Ox (%) 94 Pulse Rate (60-100 beats/min) 97 3rd minute Oxygen Delivery Method Room Air Pulse Ox (%) 93 Pulse Rate (60-100 beats/min) 96 4th minute Oxygen Delivery Method Room Air Pulse Ox (%) 96 Pulse Rate (60-100 beats/min) 99 5th minute Oxygen Delivery Method Room Air Pulse Ox (%) 95 Pulse Rate (60-100 beats/min) 103 H 6th minute Oxygen Delivery Method Room Air Pulse Ox (%) 94 Pulse Rate (60-100 beats/min) 105 H Dyspnea Cristo Scale (0-10) 2 Exertion Cristo Scale (6-20) 13 Post-test Oxygen Delivery Method Room Air Pulse Ox (%) 97 Pulse Rate (60-100 beats/min) 81 Full Laps Walked 16 Partial Lap, Number of Tiles Walked 15 Total Distance Walked (ft) 959 Interpretation Interpretation: The patient ambulated 959 feet over the course of 6 minutes beginning on room air without assistive devices. Pretesting oxygen saturation was noted to be 96% on room air. With ambulation, the ruth oxygen saturation was 93%. There was no significant exertional oxygen desaturation. Recommendations Recommendations: There is no indication for the use of supplemental oxygen at this time.
== END 2021-11-25 23:59 | disposition home or self-care (01) ==
LOC: PSN 12:32
PROVIDERS: PCP Internal Medicine; Referring Provider Internal Medicine Critical Care Medicine; Visit Provider Internal Medicine Critical Care Medicine
DX: R06.02 Shortness of breath (principal)
CPT/HCPCS: 94618

== ENCOUNTER → 2022-01-20 | Outpatient (CLI) | payer MEDICARE, MEDICAID, SELFPAY ==
--- NOTE | 2022-01-20 15:13 | CT_ITS ---
HISTORY: Tobacco dependency. TECHNIQUE: Helically acquired images were obtained of the chest without contrast. A radiation dose optimization technique was used for this scan. 440 images. COMPARISON: 01/19/2021, 09/10/2019. FINDINGS: LARGE AIRWAYS: Patent. LUNGS: Stable 2 mm nodule or scar in the lateral right upper lobe. Emphysema with mild bronchiectasis and small left upper and lower lobe bullae. PLEURA: No pneumothorax or significant pleural effusion. HEART/PERICARDIUM: Heart within normal limits in size. Coronary artery calcification present. No pericardial effusion. VESSELS: Thoracic aorta nondilated. MEDIASTINUM/ATUL: Calcified mediastinal lymph node again seen. BONES/CHEST WALL: Thoracic spinal electrode and lumbar posterior spinal fusion hardware noted. CT/Low Dose CT Lung Screening IMPRESSION: Small bullae in the left lung with a stable 2 mm nodule or scar in the right upper lobe. Lung-RADS category 2: Benign appearance. Continue annual screening with low-dose CT. Electronically Signed: Brenda Akhtar MD at 15:40 EDT ,
== END | disposition home or self-care (01) ==
LOC: CT 15:10
PROVIDERS: PCP Internal Medicine; Referring Provider Internal Medicine Critical Care Medicine; Visit Provider Internal Medicine Critical Care Medicine
DX: Z12.2 Encounter for screening for malignant neoplasm of respiratory organs (principal); F17.210 Nicotine dependence, cigarettes, uncomplicated
CPT/HCPCS: 71271

== ENCOUNTER → 2022-01-26 | Outpatient (CLI) | payer MEDICARE, MEDICAID, SELFPAY ==
[2022-01-26 17:04] LABS: Cholesterol 199 mg/dL (200); High Density Lipoprotein 73 mg/dL; Triglycerides 151 mg/dL; Very Low Density Lipoprotein 30 mg/dL (5-40)
[2022-01-26 17:05] LABS: Vitamin D,25 Hydroxy 75.9 ng/mL
== END | disposition home or self-care (01) ==
LOC: BIMLAB 15:46
PROVIDERS: PCP Internal Medicine; Referring Provider Internal Medicine; Visit Provider Internal Medicine
DX: E55.9 Vitamin D deficiency, unspecified (principal); E78.5 Hyperlipidemia, unspecified
CPT/HCPCS: 36415; 80061; 82306

== ENCOUNTER 2022-02-02 10:48 | Outpatient (RCR) | payer MEDICARE, MEDICAID, SELFPAY ==
[2022-02-02 11:09] LABS: Absolute Lymphocyte Count 2.04 X10^3/uL (0.83-4.51); Absolute Neutrophil Count 2.7 X10^3/uL (2.0-7.7); Basophil# 0.08 X10^3/uL; Basophil% 1.3 % (0-1); Eosinophil# 0.54 X10^3/uL; Eosinophils% 8.9 % (0-5); Hematocrit 45.3 % (37-47); Hemoglobin 14.4 g/dL (12.0-15.0); Lymphocyte # 2.04 X10^3/ul (0.83-4.51); Lymphocyte % 33.6 % (19-41); Mean Corp Hgb Conc 31.8 g/dL (32-36); Mean Corpuscular Hgb 29.1 pg (27.0-32.0); Mean Corpuscular Volume 91.5 fL (81-99); Mean Platelet Vol. 10.5 fl (6.2-12.0); Monocyte# 0.72 X10^3/uL; Monocyte% 11.8 % (0-10); NRBC Flagged by Analyzer 0 % (0-5); Neutrophil # 2.69 X10^3/uL (2.7-7.7); Neutrophil % 44.2 % (47-70); Platelet Count 254 K/mm3 (150-450); RBC Distribution Width CV 13.4 % (11.6-14.6); RBC Distribution Width SD 45.3 fl (35.1-43.9); Red Blood Count 4.95 M/mm3 (4.2-5.4); White Blood Count 6.1 K/mm3 (4.4-11.0)
[2022-02-02 11:49] LABS: AST(SGOT) 16 U/L (15-37); Alanine Aminotransfer ALT/SGPT 27 U/L (13-56); Albumin, Serum 3.8 g/dL (3.2-5.0); BUN 23 mg/dL (7-18); CRP < 2.90 mg/L (0.0-3.0); Creatinine, Serum 0.84 mg/dL (0.55-1.02); EST Glomerular Filtration Rate 71 mL/min (>60); Est Glom Filt Rate - Afr Amer 86 mL/min (>60)
== END 2022-02-02 23:59 | disposition home or self-care (01) ==
LOC: LAB 10:48
PROVIDERS: PCP Internal Medicine; Referring Provider Internal Medicine Rheumatology; Visit Provider Internal Medicine Rheumatology
DX: M05.79 Rheumatoid arthritis with rheumatoid factor of multiple sites without organ or systems involvement (principal)
CPT/HCPCS: 36415; 82040; 82565; 84450; 84460; 84520; 85025; 86140

== ENCOUNTER → 2022-02-17 | Outpatient (CLI) | payer MEDICARE, MEDICAID, SELFPAY ==
--- NOTE | 2022-02-17 13:56 | BD_ITS ---
STUDY: DUAL ENERGY X-RAY ABSORPTIOMETRY / DXA REASON FOR EXAM: Female, 66 years old. Osteopenia with moderate fracture risk TECHNIQUE: Bone Mineral Density (BMD) measurements of lumbar spine and right hip were obtained. COMPARISON: Comparison is made with prior study dated 01/16/2019. FINDINGS: Lumbar Spine (L1-L4): g/cm2 (0.846) / T-score (-2.5) / Z-score (-0.4) Findings are suggestive of osteopenia with a high fracture risk. Right Femur Total: g/cm2 (0.817) / T-score (-1.4) / Z-score (-0.3) Right Femoral Neck: g/cm2 (0.711) / T-score (-1.7) / Z-score (line 0.3) The T-Scores on the most recent prior examination were: Lumbar Spine (L1-L4): There has been worsening of bone density since the previous examination. Right Femur Total: which represents an improvement of 3.9%. BD/Dexa Bone Density Study IMPRESSION: The patient is considered osteopenic as outlined below according to World Juanjose Organization (WHO) criteria with a high fracture risk. There has been improvement of bone density since the previous examination. Reference Information: The T-score is the number of standard deviations above or below the standard which is normal for young adults at their peak bone mineral density. The World Health Organization (WHO) interprets the T-scores as follows: Above -1 Normal bone density Between -1 and -2.5 Osteopenia Equal to / or below -2.5 Osteoporosis As a practical clinical guideline, osteopenia may be graded as follows: Mild -1 through -1.5 Moderate -1.6 through -2.0 Severe -2.1 through -2.4 The Z-score is the number of standard deviations above or below age-matched controls. A Z-score of less than -1.5 would be considered abnormal. References: 1. NIH Osteoporosis and Related Bone Diseases www osteo.org 2. International Society for Clinical Densitometry www iscd.org 3. National Osteoporosis Foundation www nof.org Electronically Signed: Sukhjinder Doss MD at 8:06 EDT ,
== END | disposition home or self-care (01) ==
LOC: OPBD 13:50
PROVIDERS: PCP Internal Medicine; Visit Provider Internal Medicine
DX: Z78.0 Asymptomatic menopausal state (principal)
CPT/HCPCS: 77080

== ENCOUNTER → 2022-06-14 | Outpatient (CLI) | payer MEDICARE, MEDICAID, SELFPAY ==
[2022-06-14 18:05] LABS: Absolute Lymphocyte Count 3.02 X10^3/uL (0.83-4.51); Absolute Neutrophil Count 5.3 X10^3/uL (2.0-7.7); Basophil# 0.05 X10^3/uL; Basophil% 0.5 % (0-1); Eosinophil# 0.03 X10^3/uL; Eosinophils% 0.3 % (0-5); Hemoglobin 14.1 g/dL (12.0-15.0); Lymphocyte # 3.02 X10^3/ul (0.83-4.51); Lymphocyte % 33.1 % (19-41); Mean Corpuscular Hgb 29.4 pg (27.0-32.0); Mean Corpuscular Volume 91.9 fL (81-99); Mean Platelet Vol. 11.1 fl (6.2-12.0); Monocyte# 0.71 X10^3/uL; Monocyte% 7.8 % (0-10); NRBC Flagged by Analyzer 0 % (0-5); Neutrophil # 5.27 X10^3/uL (2.7-7.7); Neutrophil % 57.8 % (47-70); Platelet Count 283 K/mm3 (150-450); RBC Distribution Width CV 12.9 % (11.6-14.6); RBC Distribution Width SD 43.8 fl (35.1-43.9); Red Blood Count 4.79 M/mm3 (4.2-5.4); White Blood Count 9.1 K/mm3 (4.4-11.0)
[2022-06-14 18:15] LABS: AST(SGOT) 9 U/L (15-37); Alanine Aminotransfer ALT/SGPT 23 U/L (13-56); Albumin, Serum 3.5 g/dL (3.2-5.0); BUN 15 mg/dL (7-18); CRP 3.14 mg/L (0.0-3.0); EST Glomerular Filtration Rate 88 mL/min (>60); Est Glom Filt Rate - Afr Amer 107 mL/min (>60)
== END | disposition home or self-care (01) ==
LOC: MTLAB 15:31
PROVIDERS: PCP Internal Medicine; Referring Provider Internal Medicine Rheumatology; Visit Provider Internal Medicine Rheumatology
DX: M05.79 Rheumatoid arthritis with rheumatoid factor of multiple sites without organ or systems involvement (principal)
CPT/HCPCS: 36415; 82040; 82565; 84450; 84460; 84520; 85025; 86140

== ENCOUNTER → 2022-07-22 | Outpatient (CLI) | payer MEDICARE, MEDICAID, SELFPAY ==
[2022-07-22 12:51] LABS: BUN 17 mg/dL (7-18); Creatinine, Serum 0.66 mg/dL (0.55-1.02); Glucose 109 mg/dL (74-106)
[2022-07-22 12:52] LABS: Anion Gap 4 (5-15); BUN/Creat Ratio 25.9 RATIO (10-20); Calcium,Total 9.8 mg/dL (8.5-10.1); Chloride 107 mmol/L (98-107); EST Glomerular Filtration Rate 95 mL/min (>60); Est Glom Filt Rate - Afr Amer 115 mL/min (>60); Potassium 3.4 mmol/L (3.5-5.1); Sodium Level 139 mmol/L (136-145); T4 Free Direct 0.93 ng/dL (0.76-1.46)
== END | disposition home or self-care (01) ==
LOC: BIMLAB 11:34
PROVIDERS: PCP Internal Medicine; Visit Provider Internal Medicine
DX: R68.89 Other general symptoms and signs (principal)
CPT/HCPCS: 36415; 80048; 84439; 84443

== ENCOUNTER 2022-10-13 10:33 | Outpatient (RCR) | payer MEDICARE, MEDICAID, SELFPAY ==
[2022-10-13 12:02] LABS: Absolute Lymphocyte Count 3.08 X10^3/uL (0.83-4.51); Absolute Neutrophil Count 2.8 X10^3/uL (2.0-7.7); Basophil# 0.07 X10^3/uL; Eosinophil# 0.43 X10^3/uL; Eosinophils% 6.1 % (0-5); Hematocrit 44.3 % (37-47); Hemoglobin 13.4 g/dL (12.0-15.0); Lymphocyte # 3.08 X10^3/ul (0.83-4.51); Lymphocyte % 43.8 % (19-41); Mean Corp Hgb Conc 30.2 g/dL (32-36); Mean Corpuscular Hgb 28.2 pg (27.0-32.0); Mean Corpuscular Volume 93.3 fL (81-99); Mean Platelet Vol. 11.6 fl (6.2-12.0); Monocyte# 0.67 X10^3/uL; Monocyte% 9.5 % (0-10); NRBC Flagged by Analyzer 0 % (0-5); Neutrophil # 2.77 X10^3/uL (2.7-7.7); Neutrophil % 39.5 % (47-70); Platelet Count 230 K/mm3 (150-450); RBC Distribution Width CV 13.5 % (11.6-14.6); RBC Distribution Width SD 45.9 fl (35.1-43.9); Red Blood Count 4.75 M/mm3 (4.2-5.4)
[2022-10-13 12:26] LABS: AST(SGOT) 13 U/L (15-37); Alanine Aminotransfer ALT/SGPT 22 U/L (13-56); Albumin, Serum 3.4 g/dL (3.2-5.0); Alkaline Phosphatase 82 U/L (45-117); Anion Gap 5 (5-15); BUN 20 mg/dL (7-18); BUN/Creat Ratio 30.6 RATIO (10-20); CRP < 2.90 mg/L (0.0-3.0); Chloride 111 mmol/L (98-107); Creatinine, Serum 0.65 mg/dL (0.55-1.02); EST Glomerular Filtration Rate 96 mL/min (>60); Est Glom Filt Rate - Afr Amer 116 mL/min (>60); Globulin 3.4 g/dL (2.2-4.2); Glucose 109 mg/dL (74-106); Potassium 3.8 mmol/L (3.5-5.1); Protein, Total 6.8 g/dL (6.4-8.2); Sodium Level 145 mmol/L (136-145)
== END 2022-10-13 18:00 | disposition home or self-care (01) ==
LOC: MTLAB 10:33
PROVIDERS: PCP Internal Medicine; Referring Provider Internal Medicine Rheumatology; Visit Provider Internal Medicine Rheumatology
DX: M05.79 Rheumatoid arthritis with rheumatoid factor of multiple sites without organ or systems involvement (principal); R73.03 Prediabetes
CPT/HCPCS: 36415; 80053; 83036; 85025; 86140

== ENCOUNTER 2022-12-30 15:30 | Outpatient (RCR) | payer MEDICARE, MEDICAID, SELFPAY ==
--- NOTE | 2022-12-14 14:52 | HP.PTEVAL ---
Patient's Visit Information LELE ABDUL is a 67 year old F referred to Physical Therapy by Brandan Sorto PA-C with a diagnosis of Right Shoulder Impingement. Date of Evaluation: 12/14/22 Physical Therapist: Brooklyn Steiner DPT - Visit Plan Frequency: 2x /Week Duration: 4 Weeks Plan: Focus on scapular strength/stabilization. HEP Given IE: posture, scapular retractions, upper trap stretch - Subjective Right shoulder pain that was starting about a month ago in the right shoulder and radiating down to the deltoid-. 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 Sleep was also very disturbed when she was on her left side. She has had right RTC surgery thinks around 2013. She feels that the injection made her 75% better. She has only had a twinge in the past few days. She is still on restrictions at work. No pain past the elbow- no N/T - no ESPARZA, blurred vision or dizziness. She does not do any exercises with her shoulder at this time. PMHx/Meds: no changes since cardiology visits 10/27 - Objective Posture: FH, RS- can correct with tactile cues but is unable to maintain in both sitting or standing. Gait: good arm swing and trunk rotation. Palpation: tender along insertion of levator, ACJoint, Bicipital Groove, deltoid and triceps. ROM: WFL in all planes of the cervical spine and right shoulder- does have pain end range flexion and abduction- increased pain/tightness with cervical SB to the left. 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 - Special Tests R Shoulder Empty Can - SS: Positive R Shoulder Belly Press - SupScap: Positive R Shoulder Neer - Impingement: Positive R Shoulder Puckett Donta - Impingement: Positive - Balance/Special Test Scores Quick DASH Score: 13.6350 - Goals Goal 1:: Patient will be I with HEP and progression Goal Time Frame: 4-6 Weeks Goal 2:: Patient will maintain proper posture t/o tx session to demo increased scap s/s Goal Time Frame: 4-6 Weeks Goal 3:: Patient will report 80% improvement Goal Time Frame: 4-6 Weeks - Rehabilitation Potential Physical Therapy Diagnosis: Patient presents with hypomobility- she has decreased scapular strength/stabilization and endurance leading to poor posture and increased pain with ADL's. Rehabilitation Potential: Good - Anticipated Interventions Patient/Client Instruction: Educate patient on: Benefits of Fitness Program Therapeutic Exercise to Include: Strength training, Endurance training, Coordination, Agility training, Body mechanics, Postural training, Flexibilty training, Gait and locomotor training, Passive ROM, Active ROM, Dynamic Lumbar Stabilization, Scapular Strength/Stabilization For the Purpose of:: To improve muscle performance and motor function Manual Therapy Techniques to Include: Passive ROM, Soft tissue mobilization TENS: Yes Cryotherapy (ice pack, ice massage): Yes Thermo therapy (hot pack): Yes Ultrasound (thermal/non thermal): Yes Thank you for the opportunity to evaluate your patient. For Medicare and Medicare HMO plans, please review the plan of care and approve it. It will need to be FAXED BACK to us at [phone] for Medicare purposes. For Medicare only, by signing this I certify the plan of care. Please let me know if there are questions or concerns regarding this plan of care. Physician Signature: Date:
--- NOTE | 2023-03-16 16:59 | HP.PT.NRP ---
Patient Information Patient Information: LELE ABDUL was seen in my office for initial evaluation on 12/14/22. The following Plan of Care was established for this patient: POC Established Initial Frequency: 2x /Week Initial Duration: 4 Weeks Anticipated Interventions Patient/Client Instruction: Educate patient on: Benefits of Fitness Program Therapeutic Exercise to Include: Strength training, Endurance training, Coordination, Agility training, Body mechanics, Postural training, Flexibilty training, Gait and locomotor training, Passive ROM, Active ROM, Dynamic Lumbar Stabilization and Scapular Strength/Stabilization For the Purpose of:: To improve muscle performance and motor function Manual Therapy Techniques to Include: Passive ROM and Soft tissue mobilization TENS: Yes Cryotherapy (ice pack, ice massage): Yes Thermo therapy (hot pack): Yes Ultrasound (thermal/non thermal): Yes Last Seen Last Seen: This patient was last seen in our office . Pertinent comments regarding their Physical therapy will appear below: Patient is indep in home exercise program and appropriate to be d/c from PT At this point I will be discontinuing this patient from physical therapy. I would be happy to see this patient again in the future if found appropriate by the physician. Thank you! Brooklyn Steiner, DPT Balance/Gait/Functional tests Balance/Special Test Scores Quick DASH Score: [phone]
== END 2022-12-30 19:00 | disposition home or self-care (01) ==
LOC: PT 15:30
PROVIDERS: PCP Internal Medicine; Referring Provider Physician Assistant; Visit Provider Physician Assistant
DX: M75.41 Impingement syndrome of right shoulder (principal)
CPT/HCPCS: 97110; 97162

== ENCOUNTER → 2023-01-24 | Outpatient (CLI) | payer MEDICARE, MEDICAID, SELFPAY ==
--- NOTE | 2023-01-24 13:55 | CT_ITS ---
STUDY: LOW DOSE CT LUNG CANCER SCREENING REASON FOR EXAM: Female, 67 years old. 40+ pack year history of smoking, quit 3 months ago RADIATION DOSAGE (If Supplied By Facility): CTDIvol = ( 1.59 ) mGy, DLP = ( 44.86 ) mGycm TECHNIQUE: No contrast was administered. Low dose technique was utilized (average mAS-38 and kVp 120). 1.25 mm axial source images with a slice interval of 1.25-mm were reconstructed in lung windows. 2.5 mm axial source images with a slice interval of 2.5-mm were reconstructed in lung windows. 5.0 mm axial source images with a slice interval of 5.0-mm were reconstructed in soft tissue windows. COMPARISON: 01/20/2022 Findings: Lung windows show the lungs to be normally expanded. Stable pneumatoceles noted in the lingula and superior segment of the left lower lobe. No organized infiltrate, effusion, or suspicious noncalcified mass or nodule. Limited soft tissue windows show normal-appearing thyroid gland. No suspicious adenopathy. No thoracic aortic aneurysm. There are calcified coronary vessels. No pleural or pericardial effusions. Limited cuts through the upper abdomen do not show a suspicious abnormality. Bony structures show degenerative change with stable appearance of a neural stimulator catheter in the lower thoracic spine. CT/Low Dose CT Lung Screening IMPRESSION: Lung-RADS category 2 - Continue annual screening with LDCT in 12 months. IMPORTANT NOTES FOR USE: ACR Lung-RADS Version 1.1 Assessment Categories Release Date: 2018 Category: Coded 0-4 bases on nodule(s) with highest degree of suspicion. Negative screen is defined as categories 1 and 2; a positive screen is defined as categories 3 and 4. Category 3 and 4A nodules that are unchanged on interval CT should be coded as category 2, and individuals returned to screening in 12 months. Category 4X: Category 3 or 4 nodules with additional imaging findings that increase the suspicion of lung cancer, such as spiculation, GGN that doubles in size in 1 year, enlarged lymph notes, etc. Category Modifiers: S (significant finding unrelated to lung cancer) Electronically Signed: Brayan Mackenzie MD at 15:22 EDT ,
--- NOTE | 2023-01-24 14:16 | BI_ITS ---
MAMMOGRAPHY - BILATERAL SCREENING REASON FOR EXAM: Female, 67 years old. Routine annual screening examination. PERTINENT HISTORY: Non-contributory. TECHNIQUE: Digital bilateral breast kyree (3D mammographic acquisition) in the CC and MLO projections. 2-D mediolateral oblique (MLO) and craniocaudad (CC) views of both breasts were obtained. CAD: Full Field Digital Mammography with Computer Added Detection was performed. COMPARISON: Mammogram from 02/03/2021, 01/30/2020. FINDINGS: Breast Composition: The breasts are heterogeneously dense, which may obscure small masses. There are new grouped microcalcifications in the right upper outer breast, anterior depth, approximately 4.8 cm posterior to the nipple. Further assessment with spot magnification views is recommended. There are no suspicious masses. Stable benign-appearing bilateral axillary lymph nodes. BI/SCRN MAMM (CAD)W/KYREE BILAT IMPRESSION: Further imaging evaluation recommended, as described above. (E) Recall Side: Right Breast ASSESSMENT CATEGORY: BIRADS Category 0: Incomplete. Need additional imaging evaluation. A letter regarding these results will be sent to the patient by the facility within 30 days. Approximately 10% of breast cancers are not detected by mammography. A normal mammogram should not delay biopsy of a clinically suspicious abnormality. Electronically Signed: Dg Valadez MD at 17:03 EDT ,
== END | disposition home or self-care (01) ==
PROVIDERS: PCP Internal Medicine; Referring Provider Nurse Practitioner Acute Care; Visit Provider Nurse Practitioner Women's Health
DX: Z12.31 Encounter for screening mammogram for malignant neoplasm of breast (principal); F17.210 Nicotine dependence, cigarettes, uncomplicated
CPT/HCPCS: 71271; 77063; 77067

== ENCOUNTER → 2023-01-31 | Outpatient (CLI) | payer MEDICARE, MEDICAID, SELFPAY ==
--- NOTE | 2023-01-31 14:33 | BI_ITS ---
MAMMOGRAPHY - UNILATERAL DIAGNOSTIC: RIGHT BREAST REASON FOR EXAM: Female, 67 years old. Abnormal screening mammogram. PERTINENT HISTORY: Non-contributory. TECHNIQUE: Magnification spot radiographs of the right breast in the mediolateral oblique and craniocaudal projections were obtained. CAD: Full Field Digital Mammography with Computer Added Detection was performed. COMPARISON: Comparison is made with prior examination dated January 24, 2023. FINDINGS: Breast Composition: The breasts are heterogeneously dense, which may obscure small masses. There are no dominant masses or suspicious calcifications. The calcifications appear to be linear in nature suggestive of vascular calcification. No other significant abnormalities are identified. BI/DIAG MAMM W/CAD, UNILAT IMPRESSION: Negative unilateral diagnostic mammogram. Yearly followup mammogram recommended. (A) ASSESSMENT CATEGORY: BIRADS Category 2: Benign. A letter regarding these results will be sent to the patient by the facility within 30 days. Approximately 10% of breast cancers are not detected by mammography. A normal mammogram should not delay biopsy of a clinically suspicious abnormality. Electronically Signed: Sukhjinder Doss MD at 15:10 EDT ,
== END | disposition home or self-care (01) ==
PROVIDERS: PCP Internal Medicine; Referring Provider Nurse Practitioner Women's Health; Visit Provider Nurse Practitioner Women's Health
DX: R92.8 Other abnormal and inconclusive findings on diagnostic imaging of breast (principal)
CPT/HCPCS: 77065

== ENCOUNTER → 2023-02-01 | Outpatient (CLI) | payer MEDICARE, MEDICAID, SELFPAY ==
[2023-02-01 15:34] LABS: Absolute Lymphocyte Count 2.32 X10^3/uL (0.83-4.51); Absolute Neutrophil Count 2.8 X10^3/uL (2.0-7.7); Basophil# 0.09 X10^3/uL; Basophil% 1.3 % (0-1); Eosinophil# 1.25 X10^3/uL; Eosinophils% 18.2 % (0-5); Hematocrit 42.3 % (37-47); Hemoglobin 12.8 g/dL (12.0-15.0); Lymphocyte # 2.32 X10^3/ul (0.83-4.51); Lymphocyte % 33.8 % (19-41); Mean Corp Hgb Conc 30.3 g/dL (32-36); Mean Corpuscular Hgb 28.6 pg (27.0-32.0); Mean Corpuscular Volume 94.4 fL (81-99); Mean Platelet Vol. 11.1 fl (6.2-12.0); Monocyte# 0.42 X10^3/uL; Monocyte% 6.1 % (0-10); NRBC Flagged by Analyzer 0 % (0-5); Neutrophil # 2.76 X10^3/uL (2.7-7.7); Neutrophil % 40.3 % (47-70); Platelet Count 236 K/mm3 (150-450); RBC Distribution Width CV 12.9 % (11.6-14.6); RBC Distribution Width SD 44.7 fl (35.1-43.9); Red Blood Count 4.48 M/mm3 (4.2-5.4); White Blood Count 6.9 K/mm3 (4.4-11.0)
[2023-02-01 16:20] LABS: Hemoglobin A1c 5.5 % (3.8-5.6)
[2023-02-01 16:26] LABS: AST(SGOT) 20 U/L (15-37); Alanine Aminotransfer ALT/SGPT 30 U/L (13-56); Albumin, Serum 3.5 g/dL (3.2-5.0); Alkaline Phosphatase 83 U/L (45-117); Anion Gap 7 (5-15); BUN 21 mg/dL (7-18); BUN/Creat Ratio 26.8 RATIO (10-20); Calcium,Total 9.3 mg/dL (8.5-10.1); Chloride 107 mmol/L (98-107); Cholesterol 204 mg/dL (200); Creatinine, Serum 0.78 mg/dL (0.55-1.02); EST Glomerular Filtration Rate 78 mL/min (>60); Est Glom Filt Rate - Afr Amer 94 mL/min (>60); Globulin 3.6 g/dL (2.2-4.2); Glucose 105 mg/dL (74-106); High Density Lipoprotein 97 mg/dL; Potassium 3.6 mmol/L (3.5-5.1); Protein, Total 7.1 g/dL (6.4-8.2); Sodium Level 139 mmol/L (136-145); Thyroid Stim Hormone (TSH) 0.88 uIU/mL (0.358-3.74); Triglycerides 66 mg/dL; Very Low Density Lipoprotein 13 mg/dL (5-40)
== END | disposition home or self-care (01) ==
PROVIDERS: PCP Internal Medicine; Visit Provider Internal Medicine
DX: I10 Essential (primary) hypertension (principal); E78.5 Hyperlipidemia, unspecified; R73.03 Prediabetes
CPT/HCPCS: 36415; 80053; 80061; 83036; 84443; 85025

== ENCOUNTER → 2023-02-22 | Outpatient (CLI) | payer MEDICARE, MEDICAID, SELFPAY ==
[2023-02-22 18:02] LABS: Vitamin B12 636 pg/mL (211-911); Vitamin D,25 Hydroxy 97.9 ng/mL
== END | disposition home or self-care (01) ==
LOC: BIMLAB 14:39
PROVIDERS: PCP Internal Medicine; Referring Provider Nurse Practitioner Family; Visit Provider Nurse Practitioner Family
DX: E55.9 Vitamin D deficiency, unspecified (principal)
CPT/HCPCS: 36415; 82306; 82607

== ENCOUNTER 2023-02-28 12:07 | Day surgery (SDC) | payer MEDICARE, MEDICAID, SELFPAY ==
[2023-02-28 12:29] VITALS: BP 122/85; PULSE 76; RESP 18; TEMP 36.2; O2SAT 96; BMI 29.5
[2023-02-28] MEDS: Lactated Ringers 1,000 ML 15 ML IV (12:34)
[2023-02-28 14:05] VITALS: BP 117/66; BP 122/85; PULSE 75; RESP 16; TEMP 36.2; O2SAT 98
--- NOTE | 2023-02-28 14:07 | OP.COLON_ITS ---
Patient Name: Agnes Pang Procedure Date: 02/28/2023 1:26 PM Date of : 1955 Age: 67 Procedure: Colonoscopy Indications: Surveillance: Personal history of adenomatous polyps on last colonoscopy > 3 years ago Providers: Chinmay Rinaldi DO Referring MD: Chinmay Rinaldi DO Medicines: Monitored Anesthesia Care Patient Profile: This is a 67 year old female. Refer to note in patient chart for documentation of history and physical. Last Colonoscopy: more than 3 years ago. Complications: No immediate complications. Procedure: Pre-Anesthesia Assessment: - Prior to the procedure, a History and Physical was performed, and patient medications and allergies were reviewed. The patient is competent. The risks and benefits of the procedure and the sedation options and risks were discussed with the patient. All questions were answered and informed consent was obtained. Patient identification and proposed procedure were verified by the physician in the pre-procedure area. Mental Status Examination: alert and oriented. Airway Examination: normal oropharyngeal airway and neck mobility. Respiratory Examination: clear to auscultation. CV Examination: normal. Prophylactic Antibiotics: The patient does not require prophylactic antibiotics. Prior Anticoagulants: The patient has taken no previous anticoagulant or antiplatelet agents. ASA Grade Assessment: II - A patient with mild systemic disease. After reviewing the risks and benefits, the patient was deemed in satisfactory condition to undergo the procedure. The anesthesia plan was to use monitored anesthesia care (MAC). Immediately prior to administration of medications, the patient was re-assessed for adequacy to receive sedatives. The heart rate, respiratory rate, oxygen saturations, blood pressure, adequacy of pulmonary ventilation, and response to care were monitored throughout the procedure. The physical status of the patient was re-assessed after the procedure. After I obtained informed consent, the scope was passed under direct vision. Throughout the procedure, the patient's blood pressure, pulse, and oxygen saturations were monitored continuously. The pediatric colonoscope was introduced through the anus and advanced to the cecum, identified by appendiceal orifice and ileocecal valve. The colonoscopy was performed without difficulty. The patient tolerated the procedure well. The quality of the bowel preparation was good. Scope In: 1:43:39 PM Scope Withdrawal Time 0 hours 8 minutes 47 seconds Scope Out: 1:59:33 PM Total Procedure Duration Time 0 hours 15 minutes 54 seconds Findings: The perianal and digital rectal examinations were normal. Multiple small and large-mouthed diverticula were found in the recto-sigmoid colon, sigmoid colon and descending colon. The exam was otherwise without abnormality on direct and retroflexion views. Impression: - Diverticulosis in the recto-sigmoid colon, in the sigmoid colon and in the descending colon. - The examination was otherwise normal on direct and retroflexion views. - No specimens collected. Recommendation: - Discharge patient to home. - Resume previous diet. - Repeat colonoscopy in 5 years for screening purposes. - Continue present medications. Procedure Code(s): --- Professional --- G0105, Colorectal cancer screening; colonoscopy on individual at high risk CPT copyright 2017 [employer]. All rights reserved. The codes documented in this report are preliminary and upon hyperbaric tech review may be revised to meet current compliance requirements. Chinmay Rinaldi DO 02/28/2023 2:06:45 PM This report has been signed electronically. Number of Addenda: 0 Note Initiated On: 02/28/2023 1:26 PM
--- NOTE | 2023-02-28 14:07 | PCM.HP.STD ---
HPI - General General Date of Admission: 02/28/23 Date of Service: 02/28/23 Chief Complaint: Screening colonoscopy HPI Narrative LELE ABDUL, is a 67 F who presents today for a surveillance colonoscopy. She had a colonoscopy approximately ago and had 2 adenomatous polyps removed. She also carries a past medical history of rheumatoid arthritis, chronic constipation, diverticular disease. She does not have any abdominal pain at this time. Does not have any cramping. She denied any chest pain or shortness of breath. All other 16 review of systems are negative except as pertinent positive mentioned HPI. [facility] Medical History (Updated 02/24/23 @ 11:22 by Padmini Mccurdy 3D DESIGNER, 3D DESIGNER-C) AA (alcohol abuse) Abnormal bruising Abnormal EKG Acute low back pain ADD (attention deficit disorder) ADHD Alcohol use disorder in remission Anxiety and depression Asthma Back pain Borderline type 2 diabetes mellitus Cardiology follow-up encounter Cataracts, bilateral Chronic bronchitis Chronic constipation COVID-19 vaccine series completed Degeneration, intervertebral disc, lumbosacral Depression, unspecified CARBAJAL (dyspnea on exertion) Encounter for screening for malignant neoplasm of lung in current smoker with 30 pack year history or greater Eosinophilia Essential hypertension Fatigue Former smoker GERD (gastroesophageal reflux disease) Hay fever Heat intolerance High cholesterol History of alcohol abuse History of echocardiogram History of stress test Hyperlipemia Hypertension Insomnia Jaw swelling Low back pain due to bilateral sciatica Neuropathy Nicotine dependence, cigarettes, uncomplicated Osteopenia with high risk of fracture Overweight Post-menopausal Primary osteoarthritis of left hip Radiculopathy of lumbosacral region Rheumatoid arthritis Rheumatoid arthritis Seasonal allergies Shortness of breath Smoking greater than 40 pack years Spinal cord stimulator status Spinal stenosis of lumbosacral region Spondylosis of 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 myelopathy or radiculopathy Tobacco use disorder, continuous Tremor Unilateral primary osteoarthritis, right hip Vitamin D deficiency Vitamin deficiency Wears glasses Home Medications multivitamin,[id number] (Complete Multivitamin tablet) 1 tab PO DAILY 04/21/20 [History Last Taken Unknown] blood pressure monitor (Blood Pressure Kit) #1 ea 09/30/20 [Rx Last Taken Unknown] pregabalin 50 mg capsule 50 mg PO DAILY 08/13/21 [History Last Taken Unknown] celecoxib 100 mg capsule (Celebrex) 100 mg PO DAILY 11/03/21 [History Last Taken Unknown] cholecalciferol (vitamin D3) 125 mcg (5,000 unit) capsule 125 mcg PO DAILY 11/03/21 [History Last Taken Unknown] magnesium 250 mg tablet 250 mg PO DAILY 11/03/21 [History Last Taken Unknown] prednisone 5 mg tablet 5 mg PO PRN PRN PAIN 11/03/21 [History Last Taken Unknown] pregabalin 75 mg capsule 75 mg PO QHS 11/03/21 [History Last Taken Unknown] acyclovir 400 mg tablet 400 mg PO .MONWENFRI #180 tabs 01/26/22 [Rx Last Taken Unknown] pravastatin 40 mg tablet 40 mg PO MOWEFR #90 tabs 01/26/22 [Rx Last Taken Unknown] alendronate 70 mg tablet 70 mg PO QWEEK #14 tabs 04/12/22 [Rx Last Taken Unknown] losartan 100 mg tablet 100 mg PO DAILY #90 tabs 07/05/22 [Rx Last Taken 02/28/23 09:30] amlodipine 10 mg tablet 10 mg PO DAILY #90 tabs 09/15/22 [Rx Last Taken 02/28/23 09:30] linaclotide 72 mcg capsule See Rx Instructions .Route .COMPLEX 3 months #90 caps 10/07/22 [Rx Last Taken Unknown] calcium carbonate 600 mg-vitamin D3 10 mcg (400 unit) capsule 1 cap PO DAILY 10/27/22 [History Last Taken Unknown] hydrochlorothiazide 25 mg tablet 25 mg PO DAILY #90 tabs 11/03/22 [Rx Last Taken Unknown] leflunomide 20 mg tablet 20 mg PO DAILY #90 tabs 11/18/22 [Rx Last Taken Unknown] omeprazole 40 mg capsule,delayed release 40 mg PO DAILY #90 caps 12/15/22 [Rx Last Taken 02/28/23 09:30] carboxymethylcellulose-citric acid 0.75 gram capsule (Plenity (Welcome Kit)) 3 cap PO BID #180 caps 02/01/23 [Rx Last Taken Unknown] duloxetine 30 mg capsule,delayed release 30 mg PO DAILY #30 caps 02/16/23 [Rx Last Taken Unknown] viloxazine 200 mg capsule,extended release 24 hr (Qelbree) 200 mg PO DAILY #30 caps 02/16/23 [Rx Last Taken Unknown] Symbicort 80 mcg-4.5 mcg/actuation HFA aerosol inhaler (budesonide-formoterol) 2 puff inhalation BID #3 device 02/23/23 [Rx Last Taken Unknown] albuterol sulfate 90 mcg/actuation aerosol inhaler (ProAir HFA) 2 puff inhalation Q6H PRN shortness of breath or wheezing #8.5 grams 02/23/23 [Rx Last Taken Unknown] Allergy/AdvReac Type Severity Reaction Status Date / Time Penicillins Allergy Hives Verified 02/28/23 12:28 adhesive tape AdvReac Severe Rash, Verified 02/28/23 12:28 itchy, raw acetaminophen [From Percocet] AdvReac Intermediate insomnia Verified 02/28/23 12:28 oxycodone [From Percocet] AdvReac Intermediate insomnia Verified 02/28/23 12:28 benzonatate AdvReac Unknown Verified 02/28/23 12:28 [From Sierra Mireles] Family History Brother CAD (coronary artery disease), Onset Age: 70 CABG Other Alcoholism Arthritis Asthma Heart disease Hyperlipemia Hypertension Surgical History History of back surgery History of carpal tunnel surgery History of foot surgery History of hysterectomy History of rotator cuff surgery Hx of colonoscopy Hx of shoulder surgery Status post left foot surgery Status post trigger finger release Social History Smoking Status: Former smoker Tobacco: How many years used: 40 second hand exposure: Yes quit status: considering quitting counseling given: provider counseling and support medications alcohol intake: current Alcohol type: beer substance use type: does not use what type of physical activity do you participate in: walking ROS Constitutional Constitutional: Reports systems reviewed and no addt'l complaints, except as documented Eyes Eyes: Reports systems reviewed and no addt'l complaints, except as documented ENT HEENT: Reports systems reviewed and no addt'l complaints, except as documented Cardiovascular Cardiovascular: Reports systems reviewed and no addt'l complaints, except as documented Respiratory/Chest Respiratory/Chest: Reports systems reviewed and no addt'l complaints, except as documented Gastrointestinal Gastrointestinal: Reports systems reviewed and no addt'l complaints, except as documented Genitourinary Genitourinary: Reports systems reviewed and no addt'l complaints, except as documented Musculoskeletal Musculoskeletal: Reports systems reviewed and no addt'l complaints, except as documented Integumentary Integumentary: Reports systems reviewed and no addt'l complaints, except as documented Neurologic Neurologic: Reports systems reviewed and no addt'l complaints, except as documented Psychiatric Psychiatric: Reports systems reviewed and no addt'l complaints, except as documented Endocrine Endocrinology: Reports systems reviewed and no addt'l complaints, except as documented Hematologic/Lymphatic Hematologic/Lymphatic: Reports systems reviewed and no addt'l complaints, except as documented Allergic/Immunologic Allergic/Immunologic: Reports systems reviewed and no addt'l complaints, except as documented Vital Signs Vital Signs Vital Signs: 02/28/23 12:29 02/28/23 12:29 Temperature 97.2 F L Temperature Source Temporal Pulse Rate 76 Respiratory Rate 18 Respiratory Pattern Normal Blood Pressure 122/85 H Blood Pressure Mean 97 Blood Pressure Source Monitor Blood Pressure Position Semi-Fowlers Blood Pressure Location Left Arm Pulse Ox 96 Oxygen Delivery Method Room Air Weight Weight: 145 lb 15.136 oz Body Mass Index (BMI) 29.5 Physical Exam Const alert, oriented x3 and no apparent distress General Appearance: cooperative and comfortable Assessment & Plan Assessment/Plan (1) Encounter for screening for malignant neoplasm of colon: PLAN: She will undergo surveillance colonoscopy. She was explained alternatives, risk, benefits include not withstanding bleeding, infection, sepsis, perforation, need for discharge and . She will have an ASA of 2.
--- NOTE | 2023-02-28 14:08 | OP.CCLET_ITS ---
02/28/2023 Yady Vera MD [address] [place] [address] [place] [address] Re : Colonoscopy procedure for Agnes Pang Dear Dr. Vera This procedure was performed on Tuesday, February 28, 2023. My impressions and recommendations are as follows: Impressions : - Diverticulosis in the recto-sigmoid colon, in the sigmoid colon and in the descending colon. - The examination was otherwise normal on direct and retroflexion views. - No specimens collected. Recommendations : - Discharge patient to home. - Resume previous diet. - Repeat colonoscopy in 5 years for screening purposes. - Continue present medications. My findings are described in the full procedure note, which is enclosed. If I can be of further assistance, please feel free to contact me at . Sincerely, Chinmay Rinaldi, 02/28/2023 2:06:45 PM This report has been signed electronically.
[2023-02-28 14:10] VITALS: BP 110/67; BP 122/85; PULSE 77; RESP 18; O2SAT 100
[2023-02-28 14:15] VITALS: BP 113/72; BP 122/85; PULSE 72; RESP 18; O2SAT 100
[2023-02-28 14:20] VITALS: BP 122/85; BP 124/78; PULSE 78; RESP 18; TEMP 36.7; O2SAT 99
[2023-02-28 14:43] VITALS: BP 122/85
== END 2023-02-28 14:46 | disposition home or self-care (01) ==
LOC: EN 12:08 → AC 12:09
PROVIDERS: PCP Internal Medicine; Referring Provider Internal Medicine; Visit Provider Internal Medicine Gastroenterology
PROC: 0DJD8ZZ Inspection of Lower Intestinal Tract, Via Natural or Artificial Opening Endoscopic (ICD-10-PCS; CPT 45378; principal; 2023-02-28 13:10)
DX: Z12.11 Encounter for screening for malignant neoplasm of colon (principal); K57.30 Diverticulosis of large intestine without perforation or abscess without bleeding; I10 Essential (primary) hypertension; E78.00 Pure hypercholesterolemia, unspecified; M54.50 Low back pain, unspecified; E78.5 Hyperlipidemia, unspecified; Z87.891 Personal history of nicotine dependence; Z79.51 Long term (current) use of inhaled steroids; F90.0 Attention-deficit hyperactivity disorder, predominantly inattentive type
CPT/HCPCS: G0105; J7120

== ENCOUNTER → 2023-03-15 | Outpatient (CLI) | payer MEDICARE, MEDICAID, SELFPAY ==
--- NOTE | 2023-03-15 16:08 | RAD_ITS ---
INDICATION: PAIN EXAMINATION/TECHNIQUE: X-RAY - XR Hips Bilateral with Pelvis when performed; 2 Views COMPARISON: No relevant prior comparison study available FINDINGS: PELVIC BONES: No displaced fracture, destructive or sclerotic lesions. Note that overlapping bowel shadows may however obscure fine detail. Sacroiliac joints are unremarkable. No widening of the pubic symphysis. HIPS: Moderate bilateral hip joint space loss is present. Diffuse demineralization is noted. No displaced fracture seen in this frontal view. SOFT TISSUES: No soft tissue swelling or gas. RAD/Hips B/L min 2 views w/ Pelvis IMPRESSION: Degenerative changes above with no evidence of acute hip injury. Electronically Signed: Du Lovett DO at 16:40 EDT ,
== END | disposition home or self-care (01) ==
PROVIDERS: PCP Internal Medicine; Referring Provider Anesthesiology Pain Medicine; Visit Provider Anesthesiology Pain Medicine
DX: M16.12 Unilateral primary osteoarthritis, left hip (principal)
CPT/HCPCS: 73521

== ENCOUNTER → 2023-04-11 | Outpatient (CLI) | payer MEDICARE, MEDICAID, SELFPAY ==
[2023-04-17 19:06] LABS: Free Kappa Light Chains 12.7 mg/L (3.3-19.4); Free Lambda Light Chains 8.1 mg/L (5.7-26.3); Vitamin B1, Thiamine 150.2 nmol/L (66.5-200.0)
== END | disposition home or self-care (01) ==
LOC: MTLAB 11:26
PROVIDERS: PCP Internal Medicine; Referring Provider Psychiatry & Neurology Neurology; Visit Provider Psychiatry & Neurology Neurology
DX: G62.9 Polyneuropathy, unspecified (principal)
CPT/HCPCS: 36415; 82746; 83883; 84425

== ENCOUNTER → 2023-04-19 | Outpatient (CLI) | payer MEDICARE, MEDICAID, SELFPAY ==
--- NOTE | 2023-04-19 10:30 | NEURO ---
NCS and/or EMG Patient Report Ordering Doctor: Ric Lew DATE OF SERVICE: 04/19/23 Agnes Saucedo complains of pain and numbness in the left foot. She reports a history of spinal surgery and subsequent implantation of spinal cord stimulator. She reports occasional tingling in the right foot. Electrodiagnostic findings: Left peroneal motor nerve demonstrates normal distal latency and conduction velocity with borderline reduced amplitude. Right peroneal motor nerve demonstrates normal distal latency and amplitude, with normal conduction velocity. Tibial motor response is within normal limits bilaterally. Sensory responses are within normal limits. Normal tibial and peroneal F-waves. Borderline prolonged H-reflex bilaterally. Needle EMG testing was performed in the lower limbs. 1+ polyphasic motor units are noted in the left peroneus longus and left tibialis anterior. No acute denervation is noted. Electrodiagnostic impression: This is an abnormal study in the lower limbs 1. Electrodiagnostic findings suggestive of a chronic left L5 radiculopathy. 2. There is a greater than 50% reduction in amplitude in the left peroneal motor nerve compared to the right side. This is suggestive of a left peroneal neuropathy without evidence of conduction block. 3. No electrodiagnostic evidence is noted for peripheral polyneuropathy.
== END | disposition home or self-care (01) ==
LOC: PSN 08:50
PROVIDERS: PCP Internal Medicine; Referring Provider Orthopaedic Surgery; Visit Provider Orthopaedic Surgery
DX: M51.37 Other intervertebral disc degeneration, lumbosacral region (principal); M54.16 Radiculopathy, lumbar region
CPT/HCPCS: 95886; 95911

== ENCOUNTER → 2023-05-04 | Outpatient (CLI) | payer MEDICARE, MEDICAID, SELFPAY ==
[2023-05-04 16:53] LABS: Absolute Lymphocyte Count 2.37 X10^3/uL (0.83-4.51); Absolute Neutrophil Count 3.6 X10^3/uL (2.0-7.7); Basophil# 0.08 X10^3/uL; Basophil% 1.1 % (0-1); Eosinophil# 0.67 X10^3/uL; Eosinophils% 9.2 % (0-5); Hematocrit 44.3 % (37-47); Hemoglobin 13.3 g/dL (12.0-15.0); Lymphocyte # 2.37 X10^3/ul (0.83-4.51); Lymphocyte % 32.5 % (19-41); Mean Corpuscular Hgb 28.8 pg (27.0-32.0); Mean Corpuscular Volume 95.9 fL (81-99); Monocyte# 0.53 X10^3/uL; Monocyte% 7.3 % (0-10); NRBC Flagged by Analyzer 0 % (0-5); Neutrophil # 3.63 X10^3/uL (2.7-7.7); Neutrophil % 49.6 % (47-70); Platelet Count 236 K/mm3 (150-450); RBC Distribution Width CV 14.7 % (11.6-14.6); RBC Distribution Width SD 52.1 fl (35.1-43.9); Red Blood Count 4.62 M/mm3 (4.2-5.4); White Blood Count 7.3 K/mm3 (4.4-11.0)
[2023-05-04 17:13] LABS: Erythrocyte Sedimentation Rate 9 mm/hr (0-30)
[2023-05-04 17:22] LABS: AST(SGOT) 16 U/L (15-37); Alanine Aminotransfer ALT/SGPT 26 U/L (13-56); Albumin, Serum 3.5 g/dL (3.2-5.0); Alkaline Phosphatase 76 U/L (45-117); Anion Gap 5 (5-15); BUN 22 mg/dL (7-18); CRP < 2.90 mg/L (0.0-3.0); Calcium,Total 9.4 mg/dL (8.5-10.1); Chloride 107 mmol/L (98-107); Creatinine, Serum 0.73 mg/dL (0.55-1.02); EST Glomerular Filtration Rate 84 mL/min (>60); Est Glom Filt Rate - Afr Amer 101 mL/min (>60); Globulin 3.4 g/dL (2.2-4.2); Glucose 98 mg/dL (74-106); Potassium 3.6 mmol/L (3.5-5.1); Protein, Total 6.9 g/dL (6.4-8.2); Sodium Level 139 mmol/L (136-145)
== END | disposition home or self-care (01) ==
LOC: BIMLAB 14:53
PROVIDERS: PCP Internal Medicine; Referring Provider Internal Medicine; Visit Provider Internal Medicine
DX: M06.9 Rheumatoid arthritis, unspecified (principal); I10 Essential (primary) hypertension
CPT/HCPCS: 36415; 80053; 85025; 85652; 86140; 86431

== ENCOUNTER → 2023-07-26 | Outpatient (CLI) | payer MEDICARE, MEDICAID, SELFPAY ==
[2023-07-26 16:02] LABS: ALB/GLOB Ratio 1.1 RATIO (0.9-2.4); AST(SGOT) 24 U/L (15-37); Alanine Aminotransfer ALT/SGPT 33 U/L (13-56); Albumin, Serum 3.5 g/dL (3.2-5.0); Alkaline Phosphatase 75 U/L (45-117); Anion Gap 6 (5-15); BUN 20 mg/dL (7-18); BUN/Creat Ratio 27.1 RATIO (10-20); Calcium,Total 8.9 mg/dL (8.5-10.1); Chloride 105 mmol/L (98-107); Creatinine, Serum 0.74 mg/dL (0.55-1.02); EST Glomerular Filtration Rate 83 mL/min (>60); Est Glom Filt Rate - Afr Amer 100 mL/min (>60); Globulin 3.3 g/dL (2.2-4.2); Glucose 103 mg/dL (74-106); Potassium 3.6 mmol/L (3.5-5.1); Protein, Total 6.8 g/dL (6.4-8.2); Sodium Level 139 mmol/L (136-145)
[2023-07-26 16:03] LABS: Absolute Neutrophil Count 1.8 X10^3/uL (2.0-7.7); Basophil# 0.05 X10^3/uL; Basophil% 1.1 % (0-1); Eosinophil# 0.34 X10^3/uL; Eosinophils% 7.6 % (0-5); Hematocrit 42.9 % (37-47); Hemoglobin 13.3 g/dL (12.0-15.0); Lymphocyte % 40.4 % (19-41); Mean Corpuscular Hgb 27.9 pg (27.0-32.0); Mean Corpuscular Volume 89.9 fL (81-99); Mean Platelet Vol. 11.5 fl (6.2-12.0); Monocyte# 0.45 X10^3/uL; Monocyte% 10.1 % (0-10); NRBC Flagged by Analyzer 0 % (0-5); Neutrophil # 1.81 X10^3/uL (2.7-7.7); Neutrophil % 40.6 % (47-70); Platelet Count 234 K/mm3 (150-450); RBC Distribution Width CV 13.2 % (11.6-14.6); RBC Distribution Width SD 43.3 fl (35.1-43.9); Red Blood Count 4.77 M/mm3 (4.2-5.4); White Blood Count 4.5 K/mm3 (4.4-11.0)
[2023-07-31 10:04] LABS: Hemoglobin A1c 5.8 % (3.8-5.6)
== END | disposition home or self-care (01) ==
LOC: BIMLAB 14:01
PROVIDERS: PCP Internal Medicine; Visit Provider Internal Medicine
DX: R73.03 Prediabetes (principal); M06.9 Rheumatoid arthritis, unspecified; E78.5 Hyperlipidemia, unspecified
CPT/HCPCS: 36415; 80053; 83036; 85025

== ENCOUNTER 2023-10-15 10:45 | Emergency (ER) | payer MEDICARE, MEDICAID, SELFPAY ==
[2023-10-15 10:46] VITALS: BP 164/97; PULSE 80; RESP 16; TEMP 36.3; O2SAT 100; BMI 27.9
[2023-10-15] MEDS: Fluorescein 1 MG STRIP 1 STRIP RIGHT EYE (11:10)
[2023-10-15] MEDS: Tetracaine 0.5% Ophthalmic Bottle 1 DRP RIGHT EYE (11:10)
--- NOTE | 2023-10-15 11:10 | EX.ED.VIS.EY ---
HPI History of Present Illness Chief Complaint: Eye Problem Informant: patient Narrative Narrative: Patient is a 68-year-old female presenting with right eye redness, discomfort and swelling. Yesterday morning she was attempting to put in a lubricating eyedrops when she accidentally put an [place] one-step liquid enzymatic yarn cleaner. She immediately had burning and redness to her eye. She rinsed her eye out. She notes that her eye kind of looked like jelly and there was some redness to her lateral aspect of the eye. She denies any vision changes. She called poison control who recommended continued irrigation to her eye. When she woke up this morning she has swelling around her eye, increased swelling of her eye and increased redness throughout. Denies any issues with her left eye. Denies any vision changes except for the sensation of swelling in her eye. She sees an mechanic driver, Dr. Wetzel. Does not currently have contacts and does not regularly wear them. Does wear corrective lenses. Denies any significant photophobia or headache. No other complaints or concerns at this time. [facility] Medical History AA (alcohol abuse) Abnormal bruising Abnormal EKG Acute low back pain ADD (attention deficit disorder) ADHD Alcohol use disorder in remission Anxiety and depression Asthma Back pain Borderline type 2 diabetes mellitus Cardiology follow-up encounter Cataracts, bilateral Chronic bronchitis Chronic constipation COVID-19 vaccine series completed Degeneration, intervertebral disc, lumbosacral Depression, unspecified CARBAJAL (dyspnea on exertion) Encounter for screening for malignant neoplasm of lung in current smoker with 30 pack year history or greater Eosinophilia Essential hypertension Fatigue Former smoker GERD (gastroesophageal reflux disease) Hay fever Heat intolerance High cholesterol History of alcohol abuse History of echocardiogram History of stress test Hyperlipemia Hypertension Impacted cerumen of both ears Insomnia Jaw swelling Low back pain due to bilateral sciatica Lumbar radiculopathy Neuropathy Nicotine dependence, cigarettes, uncomplicated Osteoarthritis Osteopenia with high risk of fracture Overweight Post-menopausal Primary osteoarthritis of left hip Radiculopathy of lumbosacral region Rheumatoid arthritis Rheumatoid arthritis Seasonal allergies Shortness of breath Smoking greater than 40 pack years Spinal cord stimulator status Spinal stenosis of lumbosacral region Spondylosis of 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 myelopathy or radiculopathy Tobacco use disorder, continuous Tremor Unilateral primary osteoarthritis, right hip Vitamin D deficiency Vitamin deficiency Wears glasses Home Medications multivitamin,[id number] (Complete Multivitamin tablet) 1 tab PO DAILY 04/21/20 [History Last Taken Unknown] blood pressure monitor (Blood Pressure Kit) #1 ea 09/30/20 [Rx Last Taken Unknown] cholecalciferol (vitamin D3) 125 mcg (5,000 unit) capsule 125 mcg PO DAILY 11/03/21 [History Last Taken Unknown] magnesium 250 mg tablet 250 mg PO DAILY 11/03/21 [History Last Taken Unknown] linaclotide 72 mcg capsule See Rx Instructions .Route .COMPLEX 3 months #90 caps 10/07/22 [Rx Last Taken Unknown] calcium carbonate 600 mg-vitamin D3 10 mcg (400 unit) capsule 1 cap PO DAILY 10/27/22 [History Last Taken Unknown] hydrochlorothiazide 25 mg tablet 25 mg PO DAILY #90 tabs 11/03/22 [Rx Last Taken Unknown] omeprazole 40 mg capsule,delayed release 40 mg PO DAILY #90 caps 12/15/22 [Rx Last Taken 02/28/23 09:30] Symbicort 80 mcg-4.5 mcg/actuation HFA aerosol inhaler (budesonide-formoterol) 2 puff inhalation BID #3 device 02/23/23 [Rx Last Taken Unknown] albuterol sulfate 90 mcg/actuation aerosol inhaler (ProAir HFA) 2 puff inhalation Q6H PRN shortness of breath or wheezing #8.5 grams 02/23/23 [Rx Last Taken Unknown] varenicline 1 mg tablet (Chantix Continuing Month Box) 1 mg PO BID #180 tabs 05/04/23 [Rx Last Taken Unknown] pravastatin 40 mg tablet 40 mg PO MOWEFR #90 tabs 05/15/23 [Rx Last Taken Unknown] prednisone 5 mg tablet 5 mg PO PRN PRN PAIN #90 tabs 05/15/23 [Rx Last Taken Unknown] losartan 100 mg tablet 100 mg PO DAILY #90 tabs 07/18/23 [Rx Last Taken Unknown] Handicap Placard #1 ea 07/26/23 [Rx Last Taken Unknown] flurbiprofen 100 mg tablet 100 mg PO TID PRN pain #180 tabs 07/26/23 [Rx Last Taken Unknown] desvenlafaxine succinate 50 mg tablet,extended release 24 hr 50 mg PO DAILY #30 tabs 08/02/23 [Rx Last Taken Unknown] pregabalin 75 mg capsule 75 mg PO BID 08/10/23 [History Last Taken Unknown] tizanidine 4 mg tablet See Rx Instructions PO QHS PRN muscle spasticity/muscle pain/insomnia #60 tabs 08/10/23 [Rx Last Taken Unknown] leflunomide 20 mg tablet 20 mg PO DAILY #90 tabs 08/11/23 [Rx Last Taken Unknown] amlodipine 10 mg tablet 10 mg PO DAILY #90 tabs 09/13/23 [Rx Last Taken Unknown] lisdexamfetamine 60 mg capsule 60 mg PO DAILY 30 days #30 caps 09/18/23 [Rx Last Taken Unknown] erythromycin 5 mg/gram (0.5 %) eye ointment 0.5 inch RIGHT EYE BID 7 days #3.5 grams 10/15/23 [Rx Last Taken Unknown] Allergy/AdvReac Type Severity Reaction Status Date / Time Penicillins Allergy Mild Hives Verified 10/15/23 10:46 adhesive tape AdvReac Severe Rash, Verified 10/15/23 10:46 itchy, raw acetaminophen [From Percocet] AdvReac Intermediate insomnia Verified 10/15/23 10:46 oxycodone [From Percocet] AdvReac Intermediate insomnia Verified 10/15/23 10:46 benzonatate AdvReac Mild Itching Verified 10/15/23 10:46 [From Tesdennis Mireles] Family History Brother CAD (coronary artery disease), Onset Age: 70 CABG Other Alcoholism Arthritis Asthma Heart disease Hyperlipemia Hypertension Surgical History History of back surgery History of carpal tunnel surgery History of foot surgery History of hysterectomy History of rotator cuff surgery Hx of colonoscopy Hx of shoulder surgery Status post left foot surgery Status post trigger finger release Social History Smoking Status: Former smoker Tobacco: How many years used: 40 second hand exposure: Yes quit status: considering quitting counseling given: provider counseling and support medications alcohol intake: current Alcohol type: beer substance use type: does not use what type of physical activity do you participate in: walking ROS ROS ED Constitutional Constitutional ED: Denies chills or fever(s) Eyes Eyes: Reports other Details: right eye redness, swelling and tearing ENT ENT ED: Denies rhinorrhea or sore throat Cardiovascular Cardiovascular: Denies chest pain Respiratory/Chest Respiratory/Chest: Denies cough Gastrointestinal Gastrointestinal: Denies nausea or vomiting EXAM Physical Exam Const Vital Signs: 10/15/23 10:46 Temperature 97.4 F L Temperature Source Temporal Pulse Rate 80 Respiratory Rate 16 Blood Pressure 164/97 H Blood Pressure Mean 119 Pulse Ox 100 Oxygen Delivery Method Room Air Positive well nourished and well developed General Appearance ED: well developed HEENT HEENT Narrative: Moist mucosal membranes atraumatic Nose: external nose normal Eyes Eyes Narrative: Normal left eye. Right eye patient has mild periorbital edema with no associated erythema. EOMI. PERRL. Patient is significant ecchymosis of the temporal aspect of the right eye with diffuse injection of the eye. No teardrop sign. On slit-lamp exam anterior chamber is deep and quiet. No uptake of fluorescein. No corneal abrasion appreciated. Increased injection and erythema surrounding the iris but no flare is appreciated. Neck supple Resp normal respiratory effort Cardio regular rate and regular rhythm Neuro oriented x3, CN's II-XII intact bilaterally, moves all extremities and no sensory deficits noted Skin no wounds Lesions: no lesions Rashes: no rashes Discharge Plan Triage Chief Complaint: Eye Problem ED Provider: Estephania Reagan Dx/Rx/DC Orders Clinical Impression: Chemosis of right conjunctiva Instructions: ED Eye Exposure, Chemical Prescriptions: New erythromycin 5 mg/gram (0.5 %) ointment 0.5 inch RIGHT EYE BID 7 Days Qty: 3.5 0RF No Action multivitamin,[id number] tablet 1 tab PO DAILY (DME) blood pressure monitor [Blood Pressure Kit] Kit See Rx Instructions .ROUTE .MEDSUPPLY Qty: 1 0RF Rx Instructions: Check blood pressure daily for hypertension I10 cholecalciferol (vitamin D3) 125 mcg (5,000 unit) capsule 125 mcg PO DAILY magnesium 250 mg tablet 250 mg PO DAILY pregabalin 75 mg capsule 75 mg PO BID calcium carbonate-vitamin D3 600 mg (1,500 mg)-400 unit capsule 600 mg-10 mcg (400 unit) capsule 1 cap PO DAILY budesonide-formoterol [Symbicort] 80-4.5 mcg/actuation HFA aerosol inhaler 2 puff inhalation BID Qty: 3 3RF albuterol sulfate [ProAir HFA] 90 mcg/actuation HFA aerosol inhaler 2 puff INHALATION Q6H PRN (Reason: shortness of breath or wheezing) Qty: 8.5 3RF varenicline [Chantix Continuing Month Box] 1 mg tablet 1 mg PO BID Qty: 180 3RF tizanidine 4 mg tablet See Rx Instructions PO QHS PRN (Reason: muscle spasticity/muscle pain/insomnia) Qty: 60 5RF Rx Instructions: Take 1 to 2 tablets orally at bedtime PRN (DME) Handicap Placard See Rx Instructions .ROUTE .MEDSUPPLY Qty: 1 0RF Rx Instructions: As directed, length of time 3 years flurbiprofen 100 mg tablet 100 mg PO TID PRN (Reason: pain) Qty: 180 1RF desvenlafaxine succinate 50 mg tablet extended release 24 hr 50 mg PO DAILY Qty: 30 2RF linaclotide 72 mcg capsule See Rx Instructions .ROUTE .COMPLEX 90 Days Qty: 90 3RF Dose Instruction: Take 1 capsule by mouth once daily Rx Instructions: Take 1 capsule by mouth once daily hydrochlorothiazide 25 mg tablet 25 mg PO DAILY Qty: 90 3RF omeprazole 40 mg capsule,delayed release(DR/EC) 40 mg PO DAILY Qty: 90 3RF pravastatin 40 mg tablet 40 mg PO MOWEFR Qty: 90 3RF prednisone 5 mg tablet 5 mg PO PRN PRN (Reason: PAIN) Qty: 90 1RF losartan 100 mg tablet 100 mg PO DAILY Qty: 90 3RF leflunomide 20 mg tablet 20 mg PO DAILY Qty: 90 3RF amlodipine 10 mg tablet 10 mg PO DAILY Qty: 90 3RF lisdexamfetamine 60 mg capsule 60 mg PO DAILY 30 Days Qty: 30 0RF Primary Care Provider: Kvng Orellana Referrals: Brandon Medina MD [Med Staff - Active Staff] - 1 Day for another exam Kvng Orellana, [employer] [Primary Care Provider] - Activity Restrictions/Additional Instructions: Do cool compresses to your eye. Avoid contacts until cleared by ophthalmology. Please follow-up with ophthalmology tomorrow. You may use [id number] lubricating eyedrops for comfort as well. Disposition Disposition: Home, Self Care
--- OUTSIDE RECORDS SUMMARY | 2023-10-15 11:24 | XMS RPT_ITS | CCD ---
Author Name Unknown Address [address] [place] [address] Organization [facility] Care Team Providers Care Bushwalking Guide Name Role Phone DION MCADAMS, DR ALEJO Primary Care Physician DION MCADAMS., DR. ALEJO Primary Care Unavaillocated within [facility] e ERICK BELL DO Attending Unavailable Yady Vera MD Primary Care Provider YADY VERA Primary Care Unavailable KRISTINE SERNA Referring Unavailable YADY VERA Primary Care Unavailable YADY VERA Primary Care Unavailable Allergies Allergy Classification Reported Allergen(s) Allergy Type Date of Onset Reaction(s) Facility (4 sources) benzonatate; Translations: [benzonatate] Drug Allergy 9 [facility] (1 source) Penicillin; Translations: [penicillins] Drug Allergy [facility] (3 sources) Latex; Translations: [LATEX] Drug Intolerance 3 Rash [facility] Work Phone: (3 sources) oxyCODONE; Translations: [OXYCODONE] Drug Allergy 3 Other: See Comments [facility] Work Phone: (3 sources) Penicillins; Translations: [PENICILLINS] Propensity to adverse reactions 3 [facility] Medications Current Medications Medication Drug Class(es) Dates Sig (Normalized) Sig (Original) 0.4 ML cyclosporine 0.5 MG/ML Ophthalmic Suspension [Restasis] (1 source) Start: 09-23-2022 take 1 dose into the eye(s) twice daily Restasis 0.05% ophthalmic emulsion Dose = 1 drop(s), Eyes, both, BID, # 30 EA, 0 Refill(s) Start Date: 09/23/22 Status: Ordered acyclovir 400 mg oral tablet (3 sources) Herpesvirus Nucleoside Analog DNA Polymerase Inhibitor, Herpes Simplex Virus Nucleoside Analog DNA Polymerase Inhibitor, Herpes Zoster Virus Nucleoside Analog DNA Polymerase Inhibitor Start: 09-23-2022 acyclovir 400 mg oral tablet Dose : 400 mg = 1 tab(s), Oral, Mon/Mon/Fri, # 14 tab(s), 0 Refill(s) Start Date: 09/23/22 Status: Ordered Completed/Discontinued Medications Medication Drug Class(es) Dates Sig (Normalized) Sig (Original) albuterol 0.83 mg/ml inhalation solution (2 sources) beta2-Adrenergic Agonist Start: 01-24-2019 albuterol (PROVENTIL) 2.5 mg /3 mL (0.083 %) nebulizer solution as needed for Wheezing/Shortness of Breath. 3 01/24/2019 Active Problems Active Problems Problem Classification Problem Date Documented Date Episodic/Chronic Alcohol-related disorders (2 sources) History of alcohol abuse; Translations: [Alcohol abuse, in remission] Onset: 05-03-2019 05-03-2019 Chronic Anxiety disorders (3 sources) Generalized anxiety disorder; Translations: [Mixed anxiety and depressive disorder] Onset: 05-03-2019 06-24-2019 Chronic Asthma (2 sources) Asthma; Translations: [Unspecified asthma, uncomplicated] Onset: 05-03-2019 05-03-2019 Chronic Attention-deficit, conduct, and disruptive behavior disorders (2 sources) Attention deficit hyperactivity disorder, predominantly inattentive type; Translations: [Attention-deficit hyperactivity disorder, predominantly inattentive type] Onset: 05-03-2019 05-03-2019 Chronic Biliary tract disease (2 sources) Obstruction of bile duct; Translations: [Obstruction of bile duct] Onset: 11-01-2002 12-29-2003 Chronic [place] (1 source) Partial thickness burn of left wrist; Translations: [Burn of second degree of left wrist, initial encounter] Episodic Chronic obstructive pulmonary disease and bronchiectasis (2 sources) Emphysematous bronchitis; Translations: [Chronic obstructive pulmonary disease, unspecified] Onset: 05-03-2019 05-03-2019 Chronic Disorders of lipid metabolism (2 sources) Mixed hyperlipidemia; Translations: [Mixed hyperlipidemia] Onset: 05-03-2019 05-03-2019 Chronic Essential hypertension (2 sources) Hypertensive disorder; Translations: [Essential (primary) hypertension] Onset: 05-03-2019 05-03-2019 Chronic Mood disorders (1 source) Depressive disorder 06-24-2019 Chronic Other connective tissue disease (1 source) Pain in left foot; Translations: [Pain in left foot] Onset: 09-23-2022 Episodic Other nervous system disorders (2 sources) Neuropathy; Translations: [Polyneuropathy, unspecified] Onset: 05-03-2019 05-03-2019 Chronic Other nervous system disorders (1 source) 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; Translations: [Personal history of other diseases of the nervous system and sense organs] Onset: 09-23-2022 Episodic Personality disorders (2 sources) Cluster B personality disorder ; Translations: [Cluster C personality disorder] 06-24-2019 Chronic Residual codes; unclassified (1 source) Pain; Translations: [Pain, unspecified] Episodic Rheumatoid arthritis and related disease (2 sources) Rheumatoid arthritis; Translations: [Rheumatoid arthritis, unspecified] Onset: 05-03-2019 05-03-2019 Chronic Spondylosis; intervertebral disc disorders; other back problems (2 sources) Lumbosacral spondylosis without myelopathy; Translations: [Spondylosis without myelopathy or radiculopathy, lumbosacral region] Onset: 05-07-2019 05-07-2019 Chronic Past or Other Problems Problem Classification Problem Date Documented Da te Episodic/Chronic Residual codes; unclassified (1 source) Pain, unspecified; Translations: [Pain] Onset: 11-25-2022 Episodic Screening and history of mental health and substance abuse codes (2 sources) Ex-smoker; Translations: [Personal history of nicotine dependence] Onset: 05-03-2019 05-03-2019 Episodic Spondylosis; intervertebral disc disorders; other back problems (4 sources) Spinal stenosis of lumbar region; Translations: [Spinal stenosis, lumbar region without neurogenic claudication] Onset: 05-07-2019 05-21-2019 Episodic Results Test Name Value Interpretation Reference Range Facil ity Vital Signs Date Time Vital Sign Value Performing Clinician Facility 11-25-2022 16:08-0400 Body temperature 97.11 [degF] Kristine Serna APRN.IS/IT PROJECT MANAGER Work Phone: [facility] 11-25-2022 16:08-0400 Body weight 67.04 kg Kristine Serna APRN.IS/IT PROJECT MANAGER Work Phone: [facility] 11-25-2022 16:08-0400 Diastolic blood pressure 94 mm[Hg] Kristine Serna STAIR BUILDER.IS/IT PROJECT MANAGER Work Phone: [facility] 11-25-2022 16:08-0400 Heart rate 81 /min Kristine Serna APRN.IS/IT PROJECT MANAGER Work Phone: [facility] 11-25-2022 16:08-0400 Respiratory rate 18 /min Kristine Serna STAIR BUILDER.IS/IT PROJECT MANAGER Work Phone: [facility] 11-25-2022 16:08-0400 SaO2% (BldA) [Mass fraction] 98 % Kristine Serna APRN.IS/IT PROJECT MANAGER Work Phone: [facility] 11-25-2022 16:08-0400 Systolic blood pressure 146 mm[Hg] Kristine Serna STAIR BUILDER.IS/IT PROJECT MANAGER Work Phone: [facility] 11-08-2022 14:58-0500 Body temperature 97.9 [degF] Lizette Praisler-Wood STAIR BUILDER.IS/IT PROJECT MANAGER Work Phone: [facility] 11-08-2022 14:58-0500 Body weight 64.41 kg Lizette Praisler-Wood STAIR BUILDER.IS/IT PROJECT MANAGER Work Phone: [facility] 11-08-2022 14:58-0500 Diastolic blood pressure 74 mm[Hg] Lizette Praisler-Wood STAIR BUILDER.IS/IT PROJECT MANAGER Work Phone: [facility] 11-08-2022 14:58-0500 Heart rate 68 /min Lizette Praisler-Wood STAIR BUILDER.IS/IT PROJECT MANAGER Work Phone: [facility] 11-08-2022 14:58-0500 Respiratory rate 16 /min Lizette Praisler-Wood STAIR BUILDER.IS/IT PROJECT MANAGER Work Phone: [facility] 11-08-2022 14:58-0500 SaO2% (BldA) [Mass fraction] 98 % Lizette Hayward STAIR BUILDER.IS/IT PROJECT MANAGER Work Phone: [facility] 11-08-2022 14:58-0500 Systolic blood pressure 120 mm[Hg] Lizette Hayward APRN.IS/IT PROJECT MANAGER Work Phone: [facility] 09-23-2022 18:52-0500 Diastolic Blood Pressure Non-Invasive 86 1 CLAUDIO SMITH MD [facility] 09-23-2022 18:52-0500 Heart rate 80 /min CLAUDIO SMITH MD [facility] 09-23-2022 18:52-0500 Respiratory rate 16 /min CLAUDIO SMITH MD [facility] 09-23-2022 18:52-0500 Systolic Blood Pressure Non-Invasive 119 1 CLAUDIO SMITH MD [facility] 09-23-2022 17:35-0500 Body height 150 cm CLAUDIO SMITH MD [facility] 09-23-2022 17:35-0500 Body temperature 99.5 [degF] CLAUDIO SMITH MD [facility] 09-23-2022 17:35-0500 Body weight 65.9 kg CLAUDIO SMITH MD [facility] 09-23-2022 17:35-0500 Diastolic Blood Pressure Non-Invasive 86 1 CLAUDIO SMITH MD [facility] 09-23-2022 17:35-0500 Heart rate 98 /min CLAUDIO SMITH MD [facility] 09-23-2022 17:35-0500 Respiratory rate 20 /min CLAUDIO SMITH MD [facility] 09-23-2022 17:35-0500 Systolic Blood Pressure Non-Invasive 141 1 CLAUDIO SMITH MD [facility] Encounters Encounter Date Encounter Type Care Provider Facility Start: 11-25-2022 End: 11-25-2022 ambulatory YADY VERA Facility:[facility] Start: 11-25-2022 End: 11-25-2022 Patient encounter procedure Kristine Serna STAIR BUILDER.IS/IT PROJECT MANAGER Work Phone: [facility] Procedures Date Procedure Procedure Detail Performing Clinician Start: 05-03-2019 Antibody screen Start: 11-01-2002 Colonoscopy Lizette Michelle APRN.IS/IT PROJECT MANAGER Work Phone: Back structure, excl uding neck (body structure) CLAUDIO SMITH MD Plan of Treatment Date Care Activity Detail Author Start: 11-09-2023 BP CONTROLLED (<130/80) BP CONTROLLE D (<130/80) [facility] Start: 09-04-2022 ADVANCE DIRECTIVE DISCUSSION ADVANCE DIRECTIVE DISCUSSION [facility] Start: 05-03-2022 DIABETES SCREEN DIABETES SCREEN [facility] Start: 2019 BONE DENSITY BONE DENSITY [facility] Start: 12-12-2013 LIPID SCREEN LIPID SCREEN [facility] Start: 11-01-2003 Colonoscopy COLONOSCOPY [facility] Start: 11-01-2003 COLORECTAL CANCER SCREENING COLORECTAL CANCER SCREENING [facility] Start: 1999 COLOGUARD (FIT-DNA) COLOGUARD (FIT-D NA) [facility] Start: [address] COLONOGRAPHY [facility] Start: 1999 FECAL OCCULT BLOOD FECAL OCCULT BLOO D [facility] Start: 1999 SIGMOIDOSCOPY SIGMOIDOSCOPY [facility] Start: 1994 Mammography MAMMOGRAM [facility] Start: 1984 Zoledronic acid therapy ALPHA- 1 ANTITRYPSIN DEFICIENCY SCREENING [facility] Start: 1973 SHINGRIX VACCINE (1 of 2) SHINGRIX V ACCINE (1 of 2) [facility] Start: 1973 Urine microalbumin profile DTAP,TDAP ,TD (1 - Tdap) [facility] Start: 1972 ANNUAL PCP TEAM [employer] OFFICER DYANA DISEASE VISIT ANNUAL PCP TEAM CHRONIC DISEASE VISIT [facility] Start: 1972 BP CONTROLLED (<130/80) BP CONTROLLE D (<130/80) [facility] Start: 1972 HEPATITIS C SCREENING HEPATITIS C SC REENING [facility] Start: 1972 SPIROMETRY SPIROMETRY [facility] Start: 1960 PNEUMOCOCCAL: 65+ (1 - PCV) PNEUMOCOCCAL: 65+ (1 - PCV) [facility] Clini c Payers Date Payer Category Payer Medicaid [id number] 2022 Private Health Insurance [id number] 2019 Unknown [id number] 2019 Unknown ANTH BLUE [facility] [email or web address] S AND BLUE [facility] ANTHEM MEDIBLUE O [id number] 2019-Present [phone] [address] [place] [address] O [id number] 1954 Unknown [id number] Social History Date Type Detail Facility Start: 09-23-2022 Tobacco smoking status Heavy t obacco smoker (finding) [facility] Sex Assigned At Sex [facility] Start: 11-08-2022 Tobacco smoking stat us NHIS Smokes tobacco daily [facility] Work Phone: History of tobacco use Cigarette Smoker [facility] Work Phone: Start: 11-08-2022 Cigarettes smoked current (pack per day) - Reported 0.5 [facility] Start: 11-08-2022 Tobacco use and exposure User of smokeless tobacco [facility] Work Phone: Start: 11-08-2022 End: 11-25-2022 Alcohol intake Lifetime non-drinker (finding) [facility] Start: 04-24-2019 History SDOH Alcohol Frequency 1 [facility] Start: 11-08-2022 Tobacco Comment pt smoke half pack per day [facility] Start: 1955 Sex Assigned At Not on file [facility] Functional Status Date Assessment Result Facility 09-23-2022 Functional Status Up ad manpreet [facility] spital [facility] 09-23-2022 Functional Status Standard Safet y ID band on, Allergy Band on, Call device within reach, Bed in low position, Wheels locked, Upper/Half-Length side-rails up, Visitor at bedside [facility] Mental Status Date Assessment Result Facility 09-23-2022 Mental Status Orientation Oriented x 4 [facility] 09-23-2022 Mental Status [facility] Clinical Notes 09-23-2022 to 11-25-2022 Kristine Serna APRN.[facility] - 11/25/2022 4:18 PM Samaria Hayward APRN.IS/IT PROJECT MANAGER - 11/08/2022 3:20 PM ESTPatient Instructions Note Date & Type Note Facility 11-25-2022 Note HNO ID: [id number] Author: RT Angela(R) Service: Radiology Author Type: Technologist Type: Progress Notes Filed: 11/25/2022 4:31 PM Note Text: Radiology Service Progress Note PATIENT NAME: Lele Pang DATE OF SERVICE: November 25, 2022 TIME: 4:22 PM PATIENT IDENTITY VERIFICATION COMPLETED USING TWO (2) IDENTIFIERS: Name and Date of confirmed by patient verbally. FALL SCREENING: Has the patient had 2 falls in the last year or 1 fall with injury or currently using an Ambulatory Assistive Device (Walker, Cane, Wheelchair, Crutches, etc.)? No PATIENT GENDER DATA: Female. status: : No status: NO. PATIENT RELEVANT IMPLANT DATA REVIEWED: Yes RADIOLOGY DEPARTMENT: General X-ray: Exam(s) Completed: Upper Extremity X-Ray(s): Shoulder, AP / TRUE AP / AXILLARY right PERIPHERAL IV DATA: Not applicable SIGNED BY: RT Angela(R) November 25, 2022 4:22 PM [facility] 11-25-2022 Note HNO ID: [id number] Author: Kristine Serna APRN.IS/IT PROJECT MANAGER Service: ? Author Type: Nurse Practitioner Type: Progress Notes Filed: 11/25/2022 5:04 PM Note Text: Subjective She came in with complaints of right shoulder pain. Patient says that it started about a week ago. Patient says she hangs close for [employer] and thinks she might of irritated it. Patient is not sure of any injury. Patient says it is just painful in the joint area on the back of the shoulder. Patient denies any numbness tingling or loss of feeling. The history is provided by the patient. No second language tutor was used. Pain (Shoulder Pain) Review of Systems Constitutional: Negative. Skin: Negative. Objective Physical Exam Constitutional: Appearance: Normal appearance. Pulmonary: Effort: Pulmonary effort is normal. Musculoskeletal: Arms: Comments: Patient has pain in the areas marked above and red. No bruising or swelling noted. Neurological: Mental Status: She is alert. No past medical history on file. PAST SURGICAL HISTORY Procedure Laterality Date CARPAL TUNNEL Bilateral HYSTERECTOMY HX LUMBAR SPINE FUSION COMBINED 02/2017 L4-S1 [facility] Dr. Arteaga PAST SURGICAL HISTORY OF foot surgery-hammertoe, bunionectomy PAST SURGICAL HISTORY OF trigger finger multiple fingers ROTATOR CUFF REPAIR Bilateral ALLERGIES Latex, Oxycodone, Penicillins, and Tessalon Perle [Benzonatate] MEDICATIONS gabapentin (NEURONTIN) 600 mg tablet Take 1 tablet by mouth three times daily for 90 days. albuterol (PROVENTIL) 2.5 mg /3 mL (0.083 %) nebulizer solution as needed for Wheezing/Shortness of Breath. estradiol (ESTRACE) 1 mg tablet Take 0.5 mg by mouth once daily. predniSONE (DELTASONE) 5 mg tablet as needed. For flare up of arthritis acyclovir (ZOVIRAX) 400 mg tablet Take 400 mg by mouth. buPROPion XL (WELLBUTRIN XL) 150 mg 24 hr tablet Take 150 mg by mouth once daily. calcium carbonate/vitamin D3 (CALCIUM 600 + D ORAL) Take by mouth. celecoxib (CELEBREX) 200 mg capsule Take 200 mg by mouth twice daily. cholecalciferol (VITAMIN D-3) 5,000 unit tab Take 5,000 Units by mouth once daily. amphetamine-dextroamphetamine XR (ADDERALL XR) 30 mg 24 hr capsule Take 30 mg by mouth once daily. DULoxetine (CYMBALTA) 60 mg capsule Take 60 mg by mouth once daily. fluticasone propionate (FLONASE NASAL) Use in the nose. folic acid 1 mg tablet Take 1 mg by mouth once daily. METHOTREXATE SODIUM INJECTION by INJECTION(UNSPECIFIED PARENTERAL ROUTES) route. leucovorin (LEUCOVORIN) 5 mg tablet Take 5 mg by mouth once daily. linaCLOtide (LINZESS) 72 mcg capsule Take 1 capsule by mouth once daily. Administer on an empty stomach. Swallow whole; DO NOT crush or chew. pravastatin (PRAVACHOL) 40 mg tablet Take 40 mg by mouth once daily. B Complex Vitamins capsule Take 1 capsule by mouth once daily. NORVASC 10MG TABLET Take one(1) tablet daily. (Patient taking differently: 5 mg. ) MULTIVITAMIN TABLET Take one(1) tablet daily. (Patient not taking: Reported on 05/03/2019) FAMILY HISTORY Problem Relation Age of Onset Alzheimer's Disease Mother Heart Attack Father Alcohol/Drug Father Diabetes Sister No Known Problems Brother Diabetes Sister No Known Problems Sister Social History Tobacco Use Smoking status: Every Day Packs/day: 0.50 Types: Cigarettes Smokeless tobacco: Current Tobacco comments: pt smoke half pack per day Substance Use Topics Alcohol use: Never Drug use: Never ASSESSMENT/PLAN: 1. Pain - ICD9: 780.96, ICD10: R52 - XR SHOULDER GENERAL 3V OR MORE AP/TRUE AP/OTHER RIGHT - LIDOCAINE 5 % TOPICAL PATCH - CONSULT TO ORTHOPAEDICS * * * * Physician Interpretation * * * * EXAMINATION: XR SHLDR >/=3V AP/NONA AP/OTHR RT CLINICAL HISTORY: Right shoulder pain Technique: XR SHLDR >/=3V AP/NONA AP/OTHR RT -- RIGHT with 3 views on 3 images Comparison: None RESULT: No acute fracture or dislocation. Joint spaces are maintained. Soft tissue anchor in the right humeral head. Postsurgical changes at the acromioclavicular joint. IMPRESSION IMPRESSION: No acute osseous abnormality Panel Machine Tender: OSMIN Transcribe Date/Time: Nov 25 2022 4:36P Dictated by : BEV MONTIEL MD Patient was prescribed Lidoderm pain patches and Flexeril. Patient was educated about proper use of each medication and supportive therapies. Patient was educated Flexeril will make her extremely drowsy not to drive operate heavy machinery or go to work on it. Patient was okay with this care plan and will follow-up with orthopedics for further testing. Kristine Serna APRN.IS/IT PROJECT MANAGER [facility] 11-25-2022 History of Present illness Narrative Subjective She came in with complaints of right shoulder pain. Patient says that it started about a week ago. Patient says she hangs close for [employer] and thinks she might of irritated it. Patient is not sure of any injury. Patient says it is just painful in the joint area on the back of the shoulder. Patient denies any numbness tingling or loss of feeling. The history is provided by the patient. No second language tutor was used. Pain (Shoulder Pain) Review of Systems Constitutional: Negative. Skin: Negative. Objective Physical Exam Constitutional: Appearance: Normal appearance. Pulmonary: Effort: Pulmonary effort is normal. Musculoskeletal: Arms: Comments: Patient has pain in the areas marked above and red. No bruising or swelling noted. Neurological: Mental Status: She is alert. No past medical history on file. PAST SURGICAL HISTORY Procedure Laterality Date CARPAL TUNNEL Bilateral HYSTERECTOMY HX LUMBAR SPINE FUSION COMBINED 02/2017 L4-S1 [facility] Dr. Arteaga PAST SURGICAL HISTORY OF foot surgery-hammertoe, bunionectomy PAST SURGICAL HISTORY OF trigger finger multiple fingers ROTATOR CUFF REPAIR Bilateral ALLERGIES Latex, Oxycodone, Penicillins, and Tessalon Perle [Benzonatate] MEDICATIONS gabapentin (NEURONTIN) 600 mg tablet Take 1 tablet by mouth three times daily for 90 days. albuterol (PROVENTIL) 2.5 mg /3 mL (0.083 %) nebulizer solution as needed for Wheezing/Shortness of Breath. estradiol (ESTRACE) 1 mg tablet Take 0.5 mg by mouth once daily. predniSONE (DELTASONE) 5 mg tablet as needed. For flare up of arthritis acyclovir (ZOVIRAX) 400 mg tablet Take 400 mg by mouth. buPROPion XL (WELLBUTRIN XL) 150 mg 24 hr tablet Take 150 mg by mouth once daily. calcium carbonate/vitamin D3 (CALCIUM 600 + D ORAL) Take by mouth. celecoxib (CELEBREX) 200 mg capsule Take 200 mg by mouth twice daily. cholecalciferol (VITAMIN D-3) 5,000 unit tab Take 5,000 Units by mouth once daily. amphetamine-dextroamphetamine XR (ADDERALL XR) 30 mg 24 hr capsule Take 30 mg by mouth once daily. DULoxetine (CYMBALTA) 60 mg capsule Take 60 mg by mouth once daily. fluticasone propionate (FLONASE NASAL) Use in the nose. folic acid 1 mg tablet Take 1 mg by mouth once daily. METHOTREXATE SODIUM INJECTION by INJECTION(UNSPECIFIED PARENTERAL ROUTES) route. leucovorin (LEUCOVORIN) 5 mg tablet Take 5 mg by mouth once daily. linaCLOtide (LINZESS) 72 mcg capsule Take 1 capsule by mouth once daily. Administer on an empty stomach. Swallow whole; DO NOT crush or chew. pravastatin (PRAVACHOL) 40 mg tablet Take 40 mg by mouth once daily. B Complex Vitamins capsule Take 1 capsule by mouth once daily. NORVASC 10MG TABLET Take one(1) tablet daily. (Patient taking differently: 5 mg. ) MULTIVITAMIN TABLET Take one(1) tablet daily. (Patient not taking: Reported on 05/03/2019) FAMILY HISTORY Problem Relation Age of Onset Alzheimer's Disease Mother Heart Attack Father Alcohol/Drug Father Diabetes Sister No Known Problems Brother Diabetes Sister No Known Problems Sister Social History Tobacco Use Smoking status: Every Day Packs/day: 0.50 Types: Cigarettes Smokeless tobacco: Current Tobacco comments: pt smoke half pack per day Substance Use Topics Alcohol use: Never Drug use: Never ASSESSMENT/PLAN: 1. Pain - ICD9: 780.96, ICD10: R52 - XR SHOULDER GENERAL 3V OR MORE AP/TRUE AP/OTHER RIGHT - LIDOCAINE 5 % TOPICAL PATCH - CONSULT TO ORTHOPAEDICS * * * * Physician Interpretation * * * * EXAMINATION: XR SHLDR >/=3V AP/NONA AP/OTHR RT CLINICAL HISTORY: Right shoulder pain Technique: XR SHLDR >/=3V AP/NONA AP/OTHR RT -- RIGHT with 3 views on 3 images Comparison: None RESULT: No acute fracture or dislocation. Joint spaces are maintained. Soft tissue anchor in the right humeral head. Postsurgical changes at the acromioclavicular joint. IMPRESSION IMPRESSION: No acute osseous abnormality Panel Machine Tender: OSMIN Transcribe Date/Time: Nov 25 2022 4:36P Dictated by : BEV MONTIEL MD Patient was prescribed Lidoderm pain patches and Flexeril. Patient was educated about proper use of each medication and supportive therapies. Patient was educated Flexeril will make her extremely drowsy not to drive operate heavy machinery or go to work on it. Patient was okay with this care plan and will follow-up with orthopedics for further testing. Kristine Serna APRN.ROSIO documented in this encounter [facility] 11-08-2022 Note HNO ID: [id number] Author: Lizette Hayward APRN.CNP Service: ? Author Type: Nurse Practitioner Type: Progress Notes Filed: 11/08/2022 3:26 PM Note Text: Subjective Burn Lele Pang is a 67 year old female who presents with a burn on her left wrist that occurred 5 days ago. She bumped her wrist against a hot clothes iron. She washed it in the shower and the top layer of skin came off. After that she used a burn gel from [employer] and a special band aid for [place]. She denies fever or chills. The area is tender to touch. Review of Systems Constitutional: Negative for chills and fever. Musculoskeletal: Negative for joint pain and myalgias. Skin: Negative for itching and rash. See HPI BP 120/74 Pulse 68 Temp 36.6 ?C (97.9 ?F) Resp 16 Wt 64.4 kg (142 lb) SpO2 98% BMI 28.68 kg/m? No past medical history on file. PAST SURGICAL HISTORY Procedure Laterality Date CARPAL TUNNEL Bilateral HYSTERECTOMY HX LUMBAR SPINE FUSION COMBINED 02/2017 L4-S1 [facility] Dr. Arteaga PAST SURGICAL HISTORY OF foot surgery-hammertoe, bunionectomy PAST SURGICAL HISTORY OF trigger finger multiple fingers ROTATOR CUFF REPAIR Bilateral ALLERGIES Latex, Oxycodone, Penicillins, and Tessalon Perle [Benzonatate] MEDICATIONS gabapentin (NEURONTIN) 600 mg tablet Take 1 tablet by mouth three times daily for 90 days. albuterol (PROVENTIL) 2.5 mg /3 mL (0.083 %) nebulizer solution as needed for Wheezing/Shortness of Breath. estradiol (ESTRACE) 1 mg tablet Take 0.5 mg by mouth once daily. predniSONE (DELTASONE) 5 mg tablet as needed. For flare up of arthritis acyclovir (ZOVIRAX) 400 mg tablet Take 400 mg by mouth. buPROPion XL (WELLBUTRIN XL) 150 mg 24 hr tablet Take 150 mg by mouth once daily. calcium carbonate/vitamin D3 (CALCIUM 600 + D ORAL) Take by mouth. celecoxib (CELEBREX) 200 mg capsule Take 200 mg by mouth twice daily. cholecalciferol (VITAMIN D-3) 5,000 unit tab Take 5,000 Units by mouth once daily. amphetamine-dextroamphetamine XR (ADDERALL XR) 30 mg 24 hr capsule Take 30 mg by mouth once daily. DULoxetine (CYMBALTA) 60 mg capsule Take 60 mg by mouth once daily. fluticasone propionate (FLONASE NASAL) Use in the nose. folic acid 1 mg tablet Take 1 mg by mouth once daily. METHOTREXATE SODIUM INJECTION by INJECTION(UNSPECIFIED PARENTERAL ROUTES) route. leucovorin (LEUCOVORIN) 5 mg tablet Take 5 mg by mouth once daily. linaCLOtide (LINZESS) 72 mcg capsule Take 1 capsule by mouth once daily. Administer on an empty stomach. Swallow whole; DO NOT crush or chew. pravastatin (PRAVACHOL) 40 mg tablet Take 40 mg by mouth once daily. B Complex Vitamins capsule Take 1 capsule by mouth once daily. NORVASC 10MG TABLET Take one(1) tablet daily. (Patient taking differently: 5 mg. ) MULTIVITAMIN TABLET Take one(1) tablet daily. (Patient not taking: Reported on 05/03/2019) FAMILY HISTORY Problem Relation Age of Onset Alzheimer's Disease Mother Heart Attack Father Alcohol/Drug Father Diabetes Sister No Known Problems Brother Diabetes Sister No Known Problems Sister Social History Tobacco Use Smoking status: Every Day Packs/day: 0.50 Types: Cigarettes Smokeless tobacco: Current Tobacco comments: pt smoke half pack per day Substance Use Topics Alcohol use: Never Drug use: Never Objective Physical Exam Vitals and nursing note reviewed. Constitutional: Appearance: Normal appearance. Skin: General: Skin is warm and dry. Capillary Refill: Capillary refill takes less than 2 seconds. Findings: Erythema present. No rash. Neurological: General: No focal deficit present. Mental Status: She is alert. Sensory: No sensory deficit. ASSESSMENT/PLAN: 1. Burn, wrist, second degree, left, initial encounter - ICD9: 944.27, ICD10: T23.272A - wound dressed with silvadene cream and non-stick dressing, and held in place with stockinette. - wound care instructions reviewed with patient. - Follow-up in 3-5 days if symptoms have not improved or sooner if symptoms worsen - Discussed red flags and need for immediate medical evaluation if any occur. - Discussed expected course of illness Lizette Hayward APRN.[facility] 11-08-2022 History of Present illness Narrative Images from the original note were not included. Subjective Burn Lele Pang is a 67 year old female who presents with a burn on her left wrist that occurred 5 days ago. She bumped her wrist against a hot clothes iron. She washed it in the shower and the top layer of skin came off. After that she used a burn gel from [employer] and a special band aid for del valle. She denies fever or chills. The area is tender to touch. Review of Systems Constitutional: Negative for chills and fever. Musculoskeletal: Negative for joint pain and myalgias. Skin: Negative for itching and rash. See HPI BP 120/74 Pulse 68 Temp 36.6 C (97.9 F) Resp 16 Wt 64.4 kg (142 lb) SpO2 98% BMI 28.68 kg/m No past medical history on file. PAST SURGICAL HISTORY Procedure Laterality Date CARPAL TUNNEL Bilateral HYSTERECTOMY HX LUMBAR SPINE FUSION COMBINED 02/2017 L4-S1 [facility] Dr. Arteaga PAST SURGICAL HISTORY OF foot surgery-hammertoe, bunionectomy PAST SURGICAL HISTORY OF trigger finger multiple fingers ROTATOR CUFF REPAIR Bilateral ALLERGIES Latex, Oxycodone, Penicillins, and Tessalon Perle [Benzonatate] MEDICATIONS gabapentin (NEURONTIN) 600 mg tablet Take 1 tablet by mouth three times daily for 90 days. albuterol (PROVENTIL) 2.5 mg /3 mL (0.083 %) nebulizer solution as needed for Wheezing/Shortness of Breath. estradiol (ESTRACE) 1 mg tablet Take 0.5 mg by mouth once daily. predniSONE (DELTASONE) 5 mg tablet as needed. For flare up of arthritis acyclovir (ZOVIRAX) 400 mg tablet Take 400 mg by mouth. buPROPion XL (WELLBUTRIN XL) 150 mg 24 hr tablet Take 150 mg by mouth once daily. calcium carbonate/vitamin D3 (CALCIUM 600 + D ORAL) Take by mouth. celecoxib (CELEBREX) 200 mg capsule Take 200 mg by mouth twice daily. cholecalciferol (VITAMIN D-3) 5,000 unit tab Take 5,000 Units by mouth once daily. amphetamine-dextroamphetamine XR (ADDERALL XR) 30 mg 24 hr capsule Take 30 mg by mouth once daily. DULoxetine (CYMBALTA) 60 mg capsule Take 60 mg by mouth once daily. fluticasone propionate (FLONASE NASAL) Use in the nose. folic acid 1 mg tablet Take 1 mg by mouth once daily. METHOTREXATE SODIUM INJECTION by INJECTION(UNSPECIFIED PARENTERAL ROUTES) route. leucovorin (LEUCOVORIN) 5 mg tablet Take 5 mg by mouth once daily. linaCLOtide (LINZESS) 72 mcg capsule Take 1 capsule by mouth once daily. Administer on an empty stomach. Swallow whole; DO NOT crush or chew. pravastatin (PRAVACHOL) 40 mg tablet Take 40 mg by mouth once daily. B Complex Vitamins capsule Take 1 capsule by mouth once daily. NORVASC 10MG TABLET Take one(1) tablet daily. (Patient taking differently: 5 mg. ) MULTIVITAMIN TABLET Take one(1) tablet daily. (Patient not taking: Reported on 05/03/2019) FAMILY HISTORY Problem Relation Age of Onset Alzheimer's Disease Mother Heart Attack Father Alcohol/Drug Father Diabetes Sister No Known Problems Brother Diabetes Sister No Known Problems Sister Social History Tobacco Use Smoking status: Every Day Packs/day: 0.50 Types: Cigarettes Smokeless tobacco: Current Tobacco comments: pt smoke half pack per day Substance Use Topics Alcohol use: Never Drug use: Never Objective Physical Exam Vitals and nursing note reviewed. Constitutional: Appearance: Normal appearance. Skin: General: Skin is warm and dry. Capillary Refill: Capillary refill takes less than 2 seconds. Findings: Erythema present. No rash. Neurological: General: No focal deficit present. Mental Status: She is alert. Sensory: No sensory deficit. ASSESSMENT/PLAN: 1. Burn, wrist, second degree, left, initial encounter - ICD9: 944.27, ICD10: T23.272A - wound dressed with silvadene cream and non-stick dressing, and held in place with stockinette. - wound care instructions reviewed with patient. - Follow-up in 3-5 days if symptoms have not improved or sooner if symptoms worsen - Discussed red flags and need for immediate medical evaluation if any occur. - Discussed expected course of illness Lizette Hayward APRN.CNP documented in this encounter [facility] 11-08-2022 Instructions Lizette Hayward APRN.CNP - 11/08/2022 3:20 PM EST ASSESSMENT/PLAN: 1. Burn, wrist, second degree, left, initial encounter - ICD9: 944.27, ICD10: T23.272A - wound dressed with silvadene cream and non-stick dressing, and held in place with stockinette. - wound care instructions reviewed with patient. - Follow-up in 3-5 days if symptoms have not improved or sooner if symptoms worsen - Discussed red flags and need for immediate medical evaluation if any occur. - Discussed expected course of illness Lizette Hayward APRN.CNP [place] Valle You have been seen for a burn. There are three types of del valle: First-degree del valle. These are relatively minor del valle on the very top layer of skin. The skin is red and painful but there are no blisters. These del valle normally heal without scars. A bad sunburn is a type of first-degree burn. Second-degree del valle. These del valle are more serious. They involve deeper layers of the skin. The skin is red, painful, with blisters. Second-degree del valle may cause scars. Third-degree del valle. These del valle involve deep layers of the skin. They always cause scars. These del valle may or may not be painful. Take off old dressings every day. Wash burn gently with soap and water. Put on a clean dressing as instructed. If the dressing sticks to the wound, slightly moisten it with water. This way, it can come off easier. Put an antibiotic ointment on the burn once a day. Cover it with a clean, dry gauze dressing. You can buy Polysporin ointment or Bacitracin ointment at the store. YOU SHOULD SEEK MEDICAL ATTENTION IMMEDIATELY, EITHER HERE OR AT THE NEAREST EMERGENCY DEPARTMENT, IF ANY OF THE FOLLOWING OCCURS: You see redness or swelling. There are red streaks coming out from the wound. The wound smells bad or has a lot of drainage. Pain when moving the extremities (arms or legs) and / or swollen lymph nodes (nodules normally found in the groin, armpit and neck). You have fever (temperature higher than 100.4 F / 38 C), chills, worse pain and / or swelling. documented in this encounter [facility] 09-23-2022 Hospital Discharge instructions Patient Education 09/23/2022 17:56:20 R.I.C.E. RICE RICE stands for rest, ice, compression, and elevation. Doing these things helps limit pain and swelling after an injury. RICE also helps injuries heal faster. Use RICE for sprains, strains, and severe bruises or bumps. Follow the tips on this handout and begin RICE as soon as possible after an injury. Rest Pain is your body s way of telling you to rest an injured area. Whether you have hurt an elbow, hand, foot, or knee, limiting its use will prevent further injury and help you heal. Ice Applying ice right after an injury helps prevent swelling and reduce pain. Don t place ice directly on your skin. Wrap a cold pack or bag of ice in a thin cloth. Place it over the injured area. Ice for 10 minutes every 3 hours. Don t ice for more than 20 minutes at a time. Compression Putting pressure (compression) on an injury helps prevent swelling and provides support. Wrap the injured area firmly with an elastic bandage. If your hand or foot tingles, becomes discolored, or feels cold to the touch, the bandage may be too tight. Rewrap it more loosely. If your bandage becomes too loose, rewrap it. Do not wear an elastic bandage overnight. Elevation Keeping an injury elevated helps reduce swelling, pain, and throbbing. Elevation is most effective when the injury is kept elevated higher than the heart. Call your healthcare provider if you notice any of the following: Fingers or toes feel numb, are cold to the touch, or change color. Skin looks shiny or tight. Pain, swelling, or bruising worsens and is not improved with elevation. [id number] [employer]. [address] [place] [address], [place] [address]. All rights reserved. This information is not intended as a substitute for professional medical care. Always follow your healthcare professional's instructions. Follow Up Care 09/23/2022 17:27:06 With:Your pain management physician Address: When:2-4 days With:SAPNA ASHLEY MD Address: [facility] [place] [address]- When:2-4 days [facility] 09-23-2022 Note ORIGINAL EXAMINATION: THREE XRAY VIEWS OF THE LEFT FOOT 09/23/2022 6:11 pm COMPARISON: None. HISTORY: ORDERING SYSTEM PROVIDED HISTORY: Shooting pain through 1st toe Reason for Exam: pain FINDINGS: The patient is status post 1st metatarsal arthrodesis. No acute fracture or dislocation. No soft tissue swelling. No suspicious osseous abnormality. IMPRESSION: No acute or suspicious osseous abnormality. I have personally reviewed the images of this examination and agree with the resident's findings and interpretation. Interpreted by: Trenton Blas Preliminary Report By: Johnna Watkins Electronically signed By Trenton Blas Dictated Date: 09/23/2022 6:36:57 PM Prelim Date: 09/23/2022 6:42:52 PM Sign Date: 09/23/2022 6:50:07 PM Ordering Provider: ERICK BELL [facility] 09-23-2022 Note Discharge Instructions Thank you for allowing [facility] to assist you with your healthcare needs. The following is important discharge information regarding your hospital visit. Diagnosis from Today's Visit Left foot pain History of peripheral neuropathy Foot pain-swelling What to Do Next Instructions from Your Care Team I recommend that you follow-up with your pain management physician and contact their office as soon as you can to see if you would be able to move your appointment sooner. That being said I believe you should keep an eye out for redness involving your foot worsening swelling or development of a rash. If you have a blisterlike appearance rash develop you should not touch it and you should notify your primary care physician immediately. No qualifying data available. Post Acute Orders No qualifying data available. You Need to Schedule the Following Appointments Follow Up with Your pain management physician When Within 2-4 days Where: Follow Up with SAPNA ASHLEY MD When Within 2-4 days Where: [facility] [address] [place] [address]- Allergies benzonatate penicillin Medications Please ask your primary doctor or pharmacist before taking any other medication not listed, including over the counter drugs, herbal medications, vitamins and or supplements as they may interact with your home medications. What How Much When Instructions Last Dose Unchanged acyclovir (acyclovir 400 mg oral tablet) 1 tab(s) by mouth Monday / Monday / Monday Unchanged alendronate (alendronate 70 mg oral tablet) 1 tab(s) by mouth Every week Unchanged amLODIPine (amLODIPine 10 mg oral tablet) 1 tab(s) by mouth Once a day Unchanged budesonide-formoterol (Symbicort 80 mcg-4.5 mcg/ inh Inhaler) 2 puff(s) by inhalation Two (2) times a day Unchanged cycloSPORINE ophthalmic (Restasis 0.05% ophthalmic emulsion) 1 Drops Both eyes Two (2) times a day Unchanged DULoxetine (DULoxetine 60 mg oral delayed release capsule) 2 cap by mouth Once a day Unchanged leflunomide (leflunomide 20 mg oral tablet) 1 tab(s) by mouth Once a day Unchanged mirtazapine (Remeron 15 mg oral tablet) 1 tab(s) by mouth Daily at bedtime Unchanged pravastatin (pravastatin 40 mg oral tablet) 1 tab(s) by mouth Monday / Monday / Monday Unchanged varenicline (varenicline 1 mg oral tablet) 1 tab(s) by mouth Two (2) times a day Please take this list to your next doctor s visit. Bring all medications you take, including over the counter medications, herbals and other supplements with you to your doctor s visit. Patients and families are reminded to discard old lists and to update any records with all medication providers or retail pharmacies. Education Materials RICE RICE stands for rest, ice, compression, and elevation. Doing these things helps limit pain and swelling after an injury. RICE also helps injuries heal faster. Use RICE for sprains, strains, and severe bruises or bumps. Follow the tips on this handout and begin RICE as soon as possible after an injury. Rest Pain is your body s way of telling you to rest an injured area. Whether you have hurt an elbow, hand, foot, or knee, limiting its use will prevent further injury and help you heal. Ice Applying ice right after an injury helps prevent swelling and reduce pain. Don t place ice directly on your skin. Wrap a cold pack or bag of ice in a thin cloth. Place it over the injured area. Ice for 10 minutes every 3 hours. Don t ice for more than 20 minutes at a time. Compression Putting pressure (compression) on an injury helps prevent swelling and provides support. Wrap the injured area firmly with an elastic bandage. If your hand or foot tingles, becomes discolored, or feels cold to the touch, the bandage may be too tight. Rewrap it more loosely. If your bandage becomes too loose, rewrap it. Do not wear an elastic bandage overnight. Elevation Keeping an injury elevated helps reduce swelling, pain, and throbbing. Elevation is most effective when the injury is kept elevated higher than the heart. Call your healthcare provider if you notice any of the following: Fingers or toes feel numb, are cold to the touch, or change color. Skin looks shiny or tight. Pain, swelling, or bruising worsens and is not improved with elevation. [phone] [employer]. [address] [place] [address]. All rights reserved. This information is not intended as a substitute for professional medical care. Always follow your healthcare professional's instructions. Additional Information VACCINATE! IT SAVES LIVES! Members of the community who have not yet received the COVID-19 vaccine and would like to receive it can visit one of [facility] vaccine clinics. There are many vaccine clinic locations within the [facility]. For locations and available times, please visit [email or web address]. It is important to note that some COVID mobile vaccine clinics are held outdoors and may be canceled in rainy or stormy conditions. To learn more about pediatric vaccinations (ages 5-11), we invite you to visit the [facility] webpage. [email or web address] [email or web address]-Freq [email or web address]-[email or web address].[email or web address] To learn more about the COVID-19 vaccine, we invite you to visit the [facility] website for a list of frequently asked questions. [email or web address] [facility] Patient [facility] Access Instructions: Stay connected with your healthcare team and access your personal medical information anytime with the [facility] Patient [facility]. If you would like a full copy of your medical records please contact the [facility] Medical Records Department Monday through Monday between 8a.m. and 4:30p.m. Please follow the directions below to access the portal: 1.Access the email account you provided upon registration to the [facility].2.Look for an invitation email from [facility].3.Open the email and access the invitation link: Accept Invitation to [facility].Fill in the required lopez to create your account. Sign into [email or web address] Connections with your username and password that you created in the above steps to stay up to date. You can then view a summary of results, a summary of your visits, and the ability to download your summaries to your computer or send the information securely to a physician. Remember that your healthcare information is confidential, so carefully consider who you will allow to register on the [facility] Patient Portal for access to your information. You can also access the [facility] Patient Portal on the [employer] memo. Simply click on Health Records under Health Data and then click on the [facility] logo. HOW TO SAFELY DISPOSE OF PRESCRIPTION MEDICATIONS Please use one of the following methods to safely dispose of your unused medications. 1.Use a drug disposal kit: the drug disposal pouch allows you to safely discard your old and unused drugs. Ask your nurse to give you one when you are discharged.2.Visit a local take-back location: Many local pharmacies and police departments have programs that collect old and unwanted prescription drugs. Call your local pharmacy or go to http://[employer].Graviton/2S8Lj1o to find one close to you.3.Make use of household items: Use cat litter or old coffee grounds to dispose medications if other options are not available. Mix your drugs with these household products, seal them in an airtight container and throw it into the garbage. Call [facility]: [phone] to be sure your drugs can be disposed of in this way. Some medicines may require a different approach.4.Never flush your medications down the toilet. IF YOU HAVE BEEN PRESCRIBED AN OPIOIDS FOR PAIN If you have been prescribed an opioid (such as hydrocodone, oxycodone or morphine), it is critical to understand the possible side effects and risks of opioid pain medications. Even when taken as directed, opioids can have several side effects including: Tolerance, meaning you might need to take more of a medication for the same pain relief. Nausea, vomiting and/or constipation. Sleepiness, dizziness, dry mouth, confusion, depression or itching. Physical dependence, meaning you have withdrawal symptoms when a medication is stopped ? this can develop within a few days. KNOW YOUR RESPONSIBILITIES It is important to know exactly how much and how often to take the opioid pain medications you are prescribed. Never take opioids in higher amounts or more often than prescribed. Do not combine opioids with alcohol or other drugs that cause drowsiness, such as benzodiazepines, also known as benzos, including diazepam and alprazolam, muscle relaxants or sleep aids. Never sell or share prescription opioids. This is illegal. Store opioids in a secure place and out of reach of others (including children, family, friends and visitors). The last page(s) of this document has been signed and retained as a CHART COPY Signatures Patient Education Materials R.I.C.E. Medication Leaflets My discharge plan and instructions have been reviewed and explained to me and ICHANTELL LORETTA S understand my current condition and have read and understand these discharge instructions. I have received a written copy of the plan/instructions. If I have questions, I am aware that I should contact my doctor. 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 HISTORY: ORDERING SYSTEM PROVIDED HISTORY: Shooting pain through 1st toe Reason for Exam: pain FINDINGS: The patient is status post 1st metatarsal arthrodesis. No acute fracture or dislocation. No soft tissue swelling. No suspicious osseous abnormality. IMPRESSION: No acute or suspicious osseous abnormality. I have personally reviewed the images of this examination and agree with the resident's findings and interpretation. Interpreted by: Trenton Blas Preliminary Report By: Johnna Watkins Electronically signed By Trenton Blas Dictated Date: 09/23/2022 6:36:57 PM Prelim Date: 09/23/2022 6:42:52 PM Sign Date: 09/23/2022 6:50:07 PM Ordering Provider: ERICK BELL [facility] Evaluation + Plan note No data available for this section [facility] Pain- Primary Generalized pain documented in this encounter [facility] Summary Purpose Family History No Family History Records FoundNo Family History Records FoundNo Family History Records Found Advance Directives No Advanced Directives Records FoundDocuments on File Type Date Recorded 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 Advance Directive(s) 05/08/2019 10:56 AM Documents on File Type Date Recorded 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 Advance Directive(s) 05/08/2019 10:56 AM Reason for Referral Specialty Diagnoses / Procedures Referred By Contac t Referred To Contact Orthopedics Diagnoses Pain Procedures CONSULT TO ORTHOPAEDICS OFFICE/OUTPATIENT [facility] 60-74 MINUTES Kristine Serna APRN.IS/IT PROJECT MANAGER [address] [place] [address] Referral ID Status Reason Start Date Expiration Date Visits Requested Visits Authorized [id number] Pending Review PCP Requested Referral 11/25/2022 11/25/2023 1 1 Specialty Diagnoses / Procedures Referred By Contac t Referred To Contact XR IMAGING Diagnoses Pain Procedures XR SHOULDER GENERAL 3V OR MORE AP/TRUE AP/OTHER RIGHT RADEX SHOULDER COMPLETE MINIMUM 2 VIEWS Kristine Serna APRN.IS/IT PROJECT MANAGER [address] [place] [address] Xr Imaging Referral ID Status Reason Start Date Expiration Date V isits Requested Visits Authorized [id number] Closed Auto-Generate d Referral 11/25/2022 12/25/2023 1 1 Additional Source Comments INFORMATION SOURCE (unrecogn ized section and content) DATE CREATED AUTHOR AUTHOR'S ORGANIZ ATION 10/01/2022 [facility] ([place]) DATE CREATED AUTHOR AUTHOR'S ORGANIZ ATION 09/27/2023 [facility] Care Team (unrecognized sect ion and content) Care Team Personnel Name: SAPNA ASHLEY MD Member Role: Primary Care Physician Address: Address: [facility] [place] [address]- Name: ERICK BELL DO Position: Resident Member Role: Resident Address: Address: [address] [place] [address] ED Resident [place], [place] [address] Name: JOSE RAMON P[place] Position: AO RN Member Role: ED RN Care Team Related Persons Name: NIKOLAS ARANDA Source Comments (unrecognize d section and content) In the event this informatio n is protected by the Federal Confidentiality of Alcohol and Drug Abuse Patient Records regulations: The Federal rules restrict any use of the information to criminally investigate or prosecute any alcohol or drug abuse patient.[facility] the event this information is protected by the Federal Confidentiality of Alcohol and Drug Abuse Patient Records regulations: The Federal rules restrict any use of the information to criminally investigate or prosecute any alcohol or drug abuse patient.[facility] Reason for Visit (unrecogniz ed section and content) Reason Comments Pain (Shoulder Pain) R shoulder pain x1 week Care Teams (unrecognized sec tion and content) Bushwalking Guide Relationship Specialty Start Date End Date Yady Vera MD [address] [place], [place] [id number] PCP - General Internal Medicine 11/08/22 FOR RECORDS PERTAINING TO PATIENTS WHO ARE OR HAVE BEEN ENROLLED IN A CHEMICAL DEPENDENCY/SUBSTANCEABUSE PROGRAM, SOME INFORMATION MAY BE OMITTED. This clinical summary was aggregated from multiple sources. Caution should be exercised in using it in the provision of clinical care. This summary normalizes information from multiple sources, and as a consequence, information in this document may materially change the coding, format and clinical context of patient data. In addition, data may be omitted in some cases. CLINICAL DECISIONS SHOULD BE BASED ON THE PRIMARY CLINICAL RECORDS. [facility]. provides no warranty or guarantee of the accuracy or completeness of information in this document.
== END 2023-10-15 11:42 | disposition home or self-care (01) ==
PROVIDERS: Emergency Provider Emergency Medicine; PCP Nurse Practitioner Family; Visit Provider Emergency Medicine
DX: H11.421 Conjunctival edema, right eye (principal); Z87.891 Personal history of nicotine dependence; Z97.3 Presence of spectacles and contact lenses; I10 Essential (primary) hypertension; K21.9 Gastro-esophageal reflux disease without esophagitis
CPT/HCPCS: 99283

== ENCOUNTER → 2024-01-30 | Outpatient (CLI) | payer MEDICARE, MEDICAID, SELFPAY ==
--- NOTE | 2024-01-30 15:50 | CT_ITS ---
STUDY: LOW DOSE CT LUNG CANCER SCREENING REASON FOR EXAM: Female, 68 years old. smoker and gt; 20 pack years quit 10/2022 RADIATION DOSAGE (If Supplied By Facility): CTDIvol = ( 2.01 ) mGy, DLP = ( 60.67 ) mGycm TECHNIQUE: No contrast was administered. Low dose technique was utilized (average mAS-38 and kVp 120). 1.25 mm axial source images with a slice interval of 1.25-mm were reconstructed in lung windows. Coronal sagittal reformats obtained. COMPARISON: None NODULES: No suspicious pulmonary nodules. Parenchyma: No airspace consolidation, effusion, or pneumothorax. Small bilateral lower lobe bulla. Minimal dependent atelectasis in the posterior right upper lobe. Endobronchial lesion: Mild bilateral peribronchial thickening. Minimal linear mucus or debris within the trachea and right mainstem bronchus. Aorta: Mild aortic atherosclerosis without ectasia CORONARY ARTERIES: Mild scattered multivessel calcified coronary atherosclerosis. Heart: No cardiomegaly or pericardial effusion. Pulmonary artery: Unremarkable from a nonangiogram exam. Mediastinal nodes: No mediastinal or bulky hilar adenopathy. Other chest and abdominal findings: Unremarkable thyroid. Unremarkable esophagus. No acute finding seen in the upper abdomen. Bilateral humeral head surgical anchors. Bilateral glenohumeral osteoarthritis. Intrathecal neurostimulator noted. CT/Low Dose CT Lung Screening IMPRESSION: No suspicious pulmonary nodules. Mild peribronchial thickening and minimal endobronchial mucus or debris compatible with bronchitis/bronchiolitis. Lung-RADS category 1 - Continue annual screening with LDCT in 12 months. IMPORTANT NOTES FOR USE: ACR Lung-RADS Version 1.1 Assessment Categories Release Date: 2018 Category: Coded 0-4 bases on nodule(s) with highest degree of suspicion. Negative screen is defined as categories 1 and 2; a positive screen is defined as categories 3 and 4. Category 3 and 4A nodules that are unchanged on interval CT should be coded as category 2, and individuals returned to screening in 12 months. Category 4X: Category 3 or 4 nodules with additional imaging findings that increase the suspicion of lung cancer, such as spiculation, GGN that doubles in size in 1 year, enlarged lymph notes, etc. Category Modifiers: S (significant finding unrelated to lung cancer) Electronically Signed: Anderson Gonsalves MD at 23:50 EDT ,
== END | disposition home or self-care (01) ==
LOC: CT 15:49
PROVIDERS: PCP Nurse Practitioner Family; Referring Provider Nurse Practitioner Acute Care; Visit Provider Nurse Practitioner Acute Care
DX: F17.210 Nicotine dependence, cigarettes, uncomplicated (principal)
CPT/HCPCS: 71271

== ENCOUNTER → 2024-02-05 | Outpatient (CLI) | payer MEDICARE, MEDICAID, SELFPAY ==
--- NOTE | 2024-02-05 07:30 | MRI_ITS ---
STUDY: MRI BRAIN WITHOUT CONTRAST REASON FOR EXAM: Female, 68 years old. mild cognitive impairment -- TECHNIQUE: Standardized multiplanar fat and water weighted pulse sequences were obtained. COMPARISON: None. FINDINGS: Normal size of the ventricles and extra-axial spaces for the patient''s age. Minor periventricular white matter ischemic change without mass effect or restricted diffusion. Normal bilateral basal ganglia. Normal thalami. There is no extra-axial fluid accumulation. Normal flow voids within the major intracranial circulation suggesting patency by spin echo criteria. Normal sella turcica, pituitary gland, infundibular stalk, optic chiasm and hypothalamus. Normal tectal plate and pineal gland. Normal midbrain, vishal and medulla. Normal cerebellum. Normal basal cisterns. Normal bilateral temporal bones. Normal bilateral internal auditory canals. No demonstrated orbital abnormality, within the constraints of a routine brain study. Normal visualized paranasal sinuses. Normal calvarium and skull base. Normal visualized soft tissue structures. Normal visualized upper cervical spine. MRI/Brain without Contrast IMPRESSION: Minor periventricular white matter ischemic change without evidence for acute infarct Electronically Signed: Ric Altamiarno MD at 19:23 EDT ,
--- NOTE | 2024-02-05 14:01 | BI_ITS ---
MAMMOGRAPHY - BILATERAL SCREENING REASON FOR EXAM: Female, 68 years old. Routine annual screening examination. PERTINENT HISTORY: Non-contributory. TECHNIQUE: Digital bilateral breast kyree (3D mammographic acquisition) in the CC and MLO projections. 2-D mediolateral oblique (MLO) and craniocaudad (CC) views of both breasts were obtained. CAD: Full Field Digital Mammography with Computer Added Detection was performed. COMPARISON: Comparison is made with prior study dated January 31, 2023 and January 24, 2023. FINDINGS: Breast Composition: The breasts are heterogeneously dense, which may obscure small masses. There are no dominant masses or suspicious calcifications. No other significant abnormalities are identified. There has been no significant change since the prior study. BI/SCRN MAMM (CAD)W/KYREE BILAT IMPRESSION: Stable bilateral screening mammogram. Yearly follow-up mammogram recommended. (A) ASSESSMENT CATEGORY: BIRADS Category 1: Negative. A letter regarding these results will be sent to the patient by the facility within 30 days. Approximately 10% of breast cancers are not detected by mammography. A normal mammogram should not delay biopsy of a clinically suspicious abnormality. [id number] Electronically Signed: Sukhjinder Doss MD at 14:49 EDT ,
== END | disposition home or self-care (01) ==
PROVIDERS: PCP Nurse Practitioner Family; Referring Provider Psychiatry & Neurology Neurology; Visit Provider Psychiatry & Neurology Neurology
DX: Z12.31 Encounter for screening mammogram for malignant neoplasm of breast (principal); G31.84 Mild cognitive impairment of uncertain or unknown etiology
CPT/HCPCS: 70551; 77063; 77067

== ENCOUNTER → 2024-02-07 | Outpatient (CLI) | payer MEDICARE, MEDICAID, SELFPAY ==
--- NOTE | 2024-02-07 14:54 | RAD_ITS ---
INDICATION: CHECK PLACEMENT OF SCS LEADS EXAMINATION/TECHNIQUE: X-RAY - XR Spine Thoracic 3 Views COMPARISON: FINDINGS: VERTEBRAE: Preserved vertebral body height. No fracture. No spondylolisthesis. Preservation of the normal thoracic kyphosis. No significant facet arthropathy. Stimulator electrodes are noted at the mid thoracic levels between T8-T10. DISCS: Disc spaces are maintained. INCLUDED CHEST/ABDOMEN: No acute abnormalities. RAD/Thoracic Spine 3 Views IMPRESSION: Stimulator electrodes are noted at the mid thoracic levels between T8-T10. Electronically Signed: Jw Allan DO at 17:31 EDT Reading Location ID and State: [facility] / [place] Tel [phone], Service support ,
== END | disposition home or self-care (01) ==
PROVIDERS: PCP Nurse Practitioner Family; Referring Provider Clinical Nurse Specialist Adult Health; Visit Provider Clinical Nurse Specialist Adult Health
DX: Z96.82 Presence of neurostimulator (principal)
CPT/HCPCS: 72072

== ENCOUNTER → 2024-04-25 | Outpatient (CLI) | payer MEDICARE, MEDICAID, SELFPAY ==
[2024-04-25 17:21] LABS: Absolute Lymphocyte Count 1.67 X10^3/uL (0.83-4.51); Absolute Neutrophil Count 3.1 X10^3/uL (2.0-7.7); Basophil% 1.7 % (0-1); Eosinophil# 0.65 X10^3/uL; Eosinophils% 10.9 % (0-5); Hematocrit 40.3 % (37-47); Hemoglobin 12.4 g/dL (12.0-15.0); Lymphocyte # 1.67 X10^3/ul (0.83-4.51); Lymphocyte % 27.9 % (19-41); Mean Corp Hgb Conc 30.8 g/dL (32-36); Mean Corpuscular Hgb 28.5 pg (27.0-32.0); Mean Corpuscular Volume 92.6 fL (81-99); Mean Platelet Vol. 10.5 fl (6.2-12.0); Monocyte# 0.48 X10^3/uL; NRBC Flagged by Analyzer 0 % (0-5); Neutrophil # 3.07 X10^3/uL (2.7-7.7); Neutrophil % 51.3 % (47-70); Platelet Count 294 K/mm3 (150-450); RBC Distribution Width CV 13.1 % (11.6-14.6); RBC Distribution Width SD 44.6 fl (35.1-43.9); Red Blood Count 4.35 M/mm3 (4.2-5.4)
[2024-04-25 17:26] LABS: Erythrocyte Sedimentation Rate 4 mm/hr (0-30)
[2024-04-25 17:44] LABS: AST(SGOT) 22 U/L (15-37); Alanine Aminotransfer ALT/SGPT 33 U/L (13-56); Albumin, Serum 3.6 g/dL (3.2-5.0); Alkaline Phosphatase 54 U/L (45-117); Anion Gap 7 (5-15); BUN 19 mg/dL (7-18); BUN/Creat Ratio 20.2 RATIO (10-20); Calcium,Total 9.7 mg/dL (8.5-10.1); Chloride 104 mmol/L (98-107); Cholesterol 200 mg/dL (200); Creatinine, Serum 0.94 mg/dL (0.55-1.02); EST Glomerular Filtration Rate 63 mL/min (>60); Est Glom Filt Rate - Afr Amer 76 mL/min (>60); Globulin 3.5 g/dL (2.2-4.2); Glucose 87 mg/dL (74-106); High Density Lipoprotein 97 mg/dL; Potassium 3.7 mmol/L (3.5-5.1); Protein, Total 7.1 g/dL (6.4-8.2); Sodium Level 140 mmol/L (136-145); Thyroid Stim Hormone (TSH) 0.587 uIU/mL (0.358-3.740); Triglycerides 86 mg/dL; Very Low Density Lipoprotein 17 mg/dL (5-40)
[2024-04-27 11:09] LABS: CRP, High Sensitivity 0.86 mg/L (0.00-3.00)
== END | disposition home or self-care (01) ==
LOC: VSLAB 14:30
PROVIDERS: PCP Nurse Practitioner Family; Visit Provider Nurse Practitioner Family
DX: I10 Essential (primary) hypertension (principal); M06.9 Rheumatoid arthritis, unspecified
CPT/HCPCS: 36415; 80053; 80061; 84443; 85025; 85652; 86141

== ENCOUNTER 2024-07-25 12:21 | Outpatient (CLI) | payer MEDICARE, MEDICAID, SELFPAY ==
[2024-07-25 13:06] LABS: Hematocrit 38.6 % (37-47); Hemoglobin 12.2 g/dL (12.0-15.0); Mean Corp Hgb Conc 31.6 g/dL (32-36); Mean Corpuscular Hgb 28.6 pg (27.0-32.0); Mean Corpuscular Volume 90.6 fL (81-99); Mean Platelet Vol. 10.4 fl (6.2-12.0); Platelet Count 264 K/mm3 (150-450); RBC Distribution Width CV 13.1 % (11.6-14.6); RBC Distribution Width SD 42.9 fl (35.1-43.9); Red Blood Count 4.26 M/mm3 (4.2-5.4); White Blood Count 5.1 K/mm3 (4.4-11.0)
[2024-07-25 14:09] LABS: Vitamin B12 > 2000 pg/mL (211-911); Vitamin D,25 Hydroxy 103.8 ng/mL
--- NOTE | 2024-07-25 15:07 | RAD_ITS ---
STUDY: X-RAY - THORACIC SPINE REASON FOR EXAM: Female, 69 years old. CHECK PLACEMENT OF SCS LEADS TECHNIQUE: 3 view(s) of the thoracic spine were obtained. COMPARISON: 02/07/2024 FINDINGS: Stable appearance of a SCS leads projecting over the mid body of T8. No interval change since the previous study. Normal kyphosis of the thoracic spine. There is no substantial scoliosis. Normal thoracic vertebrae and endplates. Mild disc space narrowing throughout the thoracic spine. The soft tissue structures are unremarkable. RAD/Thoracic Spine 3 Views IMPRESSION: Stable appearance of the SCS leads Stable mild degenerative changes in the thoracic spine No acute findings or significant interval change Electronically Signed: Brayan Mackenzie MD at 8:37 EST ,
[2024-07-25 16:17] LABS: ALB/GLOB Ratio 1.2 RATIO (0.9-2.4); AST(SGOT) 19 U/L (15-37); Alanine Aminotransfer ALT/SGPT 23 U/L (13-56); Albumin, Serum 3.7 g/dL (3.2-5.0); Alkaline Phosphatase 78 U/L (45-117); Anion Gap 6 (5-15); BUN 16 mg/dL (7-18); BUN/Creat Ratio 17.9 RATIO (10-20); Calcium,Total 9.3 mg/dL (8.5-10.1); Chloride 107 mmol/L (98-107); EST Glomerular Filtration Rate 66 mL/min (>60); Est Glom Filt Rate - Afr Amer 80 mL/min (>60); Folates, (Folic Acid) > 100.00 ng/mL (3.1-55.4); Globulin 3.2 g/dL (2.2-4.2); Glucose 105 mg/dL (74-106); Potassium 3.4 mmol/L (3.5-5.1); Protein, Total 6.9 g/dL (6.4-8.2); Sodium Level 139 mmol/L (136-145); Thyroid Stim Hormone (TSH) 0.678 uIU/mL (0.358-3.740)
[2024-07-29 15:07] LABS: Vitamin B1, Thiamine 94.5 nmol/L (66.5-200.0)
== END 2024-07-25 23:59 | disposition home or self-care (01) ==
PROVIDERS: Psychiatry & Neurology Neurology; PCP Nurse Practitioner Family; Referring Provider Anesthesiology Pain Medicine; Visit Provider Anesthesiology Pain Medicine
DX: Z45.42 Encounter for adjustment and management of neurostimulator (principal); R54 Age-related physical debility; E55.9 Vitamin D deficiency, unspecified; G31.84 Mild cognitive impairment of uncertain or unknown etiology
CPT/HCPCS: 36415; 72072; 80053; 82306; 82607; 82746; 84425; 84443; 85027

== ENCOUNTER → 2024-10-23 | Outpatient (CLI) | payer MEDICARE, MEDICAID, SELFPAY ==
[2024-10-23 17:45] LABS: ALB/GLOB Ratio 1.1 RATIO (0.9-2.4); AST(SGOT) 20 U/L (15-37); Alanine Aminotransfer ALT/SGPT 38 U/L (13-56); Albumin, Serum 3.8 g/dL (3.2-5.0); Alkaline Phosphatase 71 U/L (45-117); Anion Gap 8 (5-15); BUN 23 mg/dL (7-18); BUN/Creat Ratio 24.9 RATIO (10-20); Calcium,Total 9.4 mg/dL (8.5-10.1); Chloride 106 mmol/L (98-107); Cholesterol 250 mg/dL (200); Creatinine, Serum 0.92 mg/dL (0.55-1.02); EST Glomerular Filtration Rate 64 mL/min (>60); Est Glom Filt Rate - Afr Amer 77 mL/min (>60); Globulin 3.4 g/dL (2.2-4.2); Glucose 91 mg/dL (74-106); High Density Lipoprotein 133 mg/dL; Potassium 3.7 mmol/L (3.5-5.1); Protein, Total 7.2 g/dL (6.4-8.2); Sodium Level 140 mmol/L (136-145); Triglycerides 50 mg/dL; Very Low Density Lipoprotein 10 mg/dL (5-40)
[2024-10-23 17:46] LABS: Erythrocyte Sedimentation Rate 7 mm/hr (0-30)
[2024-10-25 12:08] LABS: CCP IgG Antibodies > 250 units (0-19)
[2024-10-25 13:08] LABS: Anti-Centromere B Ab <0.2 AI (0.0-0.9); Anti-Chromatin <0.2 AI (0.0-0.9); Anti-Jo <0.2 AI (0.0-0.9); Anti-Scleroderma-70 AB <0.2 AI (0.0-0.9); Anti-dsDNA Ab <1 IU/mL (0-9); CRP, High Sensitivity 0.36 mg/L (0.00-3.00); RNP Ab 0.4 AI (0.0-0.9); SJOGREN'S Anti-SS-A test < 0.2 AI (0.0-0.9); SJOGREN'S Anti-SS-B test < 0.2 AI (0.0-0.9); Smith Ab <0.2 AI (0.0-0.9)
== END | disposition home or self-care (01) ==
LOC: VSLAB 13:41
PROVIDERS: PCP Nurse Practitioner Family; Visit Provider Nurse Practitioner Family
DX: I10 Essential (primary) hypertension (principal); M06.9 Rheumatoid arthritis, unspecified
CPT/HCPCS: 36415; 80053; 80061; 85652; 86141; 86200; 86225; 86235; 86431

== ENCOUNTER 2024-11-26 05:58 | Day surgery (SDC) | payer MEDICARE, MEDICAID, SELFPAY ==
--- NOTE | 2024-11-12 16:21 | PAT.ANESEVAL ---
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 When Was Last Pacemaker Check QUESTION #4 FULL TEXT: You/Your Family Experience fever (hyperthermia) with Anesthesia Last Oral Intake Last Oral intake: Last Oral Intake NPO since Meds taken in AM with sips of water? Meds patient instructed to take am of surgery PONV PONV - national sales director: PONV - national sales director Female Yes 11/12/24 11:15 HX of Motion Sickness No 11/12/24 11:15 HX of N/V After Surgery No 11/12/24 11:15 Non-Smoker No 11/12/24 11:15 Duration of Surgery greater No 11/12/24 11:15 than 60 minutes Number of Risk Factors 1 11/12/24 11:15 PONV Score Low Risk 11/12/24 11:15 Height & Weight Height & Weight: Anesthesia: Height & Weight Height 4 ft 11 in 10/17/24 11:47 Respiratory Assessment Respiratory Assessment - national sales director: Respiratory Tract Infection Hx - national sales director Hx Respiratory Tract Infection No 11/12/24 11:15 STOP Sleep Apnea STOP Sleep Apnea - national sales director: STOP Sleep Apnea - national sales director Hx Hypertension Yes: CONTROLLED WITH MED 11/12/24 11:15 Hx Sleep Apnea No 11/12/24 11:15 CPAP No 11/12/24 11:15 BIPAP Do you snore loudly (louder No 11/12/24 11:15 than talking or can be heard Do you often feel tired/ No 11/12/24 11:15 fatigued/ sleepy during daytime? Has anyone observed you stop No 11/12/24 11:15 breathing during sleep? STOP Results Negative 11/12/24 11:15 QUESTION #5 FULL TEXT : Do you snore loudly (louder than talking or can be heard through closed doors)? Tobacco Use History Tobacco Use History - national sales director: Tobacco Use History - national sales director Tobacco Use Smoking Status Current every day smoker 11/12/24 11:15 Hx Tobacco Use Yes 11/12/24 11:15 Years Smoking Packs Smoked per Day Smoking Cessation Date was within the last 15 years Hx Smoking Cessation Date 11/12/24 11:15 Hx Smoking Cessation Counseling Hematologic Medial History Hematologic Hx - national sales director: Hematologic Medical Hx - mold maker Hx of Blood Transfusion No 11/12/24 11:15 Hx of Transfusion in last 3 No 11/12/24 11:15 Months Date of Last Transfusion (if within last 3 months) Ever experience any problems No 11/12/24 11:15 with transfusion(s)? Specify any problems Hx of Preganancy in last 3 No 11/12/24 11:15 Months Nurse Filling Out Transfusion VCHRISTIN 11/12/24 11:15 & Questions: Date: 11/12/24 11/12/24 11:15 Time: 11:18 11/12/24 11:15 Patient unable to answer at this time (ie. confused, unrespo /Reproduction History /Reproductive History - national sales director: /Reproductive Hx- national sales director Hx Now Gestational Age (in weeks): EDC: Hx Hx Para [facility] History (Updated 11/12/24 @ 11:15 by Bobbi Sotomayor) Vapes nicotine containing substance Osteoarthritis Lumbar radiculopathy Impacted cerumen of both ears Wears glasses High cholesterol Former smoker Hypertension History of echocardiogram History of stress test Cardiology follow-up encounter Vitamin deficiency Chronic constipation Borderline type 2 diabetes mellitus Alcohol use disorder in remission Depression, unspecified ADHD Heat intolerance Osteopenia with high risk of fracture Smoking greater than 40 pack years Tremor Nicotine dependence, cigarettes, uncomplicated Insomnia CARBAJAL (dyspnea on exertion) Shortness of breath Abnormal EKG AA (alcohol abuse) COVID-19 vaccine series completed Essential hypertension Acute low back pain ADD (attention deficit disorder) Back pain Jaw swelling Low back pain due to bilateral sciatica Tobacco use disorder, continuous Encounter for screening for malignant neoplasm of lung in current smoker with 30 pack year history or greater Post-menopausal Eosinophilia Abnormal bruising Hay fever Fatigue Spinal cord stimulator status Overweight GERD (gastroesophageal reflux disease) Rheumatoid arthritis Primary osteoarthritis of left hip Vitamin D deficiency Anxiety and depression Rheumatoid arthritis Neuropathy Hyperlipemia Chronic bronchitis Cataracts, bilateral Asthma History of alcohol abuse Seasonal allergies Unilateral primary osteoarthritis, right hip Spondylosis of 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 myelopathy or radiculopathy Spinal stenosis of lumbosacral region Radiculopathy of lumbosacral region Degeneration, intervertebral disc, lumbosacral Home Medications ?Medication ?Instructions ?Recorded ?Last Taken ?Type blood pressure monitor (Blood #1 ea 09/30/20 Unknown Rx Pressure Kit) linaclotide 72 mcg capsule See Rx Instructions .Route 10/07/22 Unknown Rx .COMPLEX 3 months #90 caps calcium 600 mg (as 1 cap PO DAILY 10/27/22 Unknown History carbonate)-vitamin D3 10 mcg (400 unit) capsule omeprazole 40 mg capsule,delayed 40 mg PO DAILY #90 caps 12/15/22 02/28/23 09:30 Rx release albuterol sulfate 90 mcg/actuation 2 puff inhalation Q6H PRN 02/23/23 Unknown Rx aerosol inhaler (ProAir HFA) shortness of breath or wheezing #8.5 grams losartan 100 mg tablet 100 mg PO DAILY #90 tabs 07/18/23 Unknown Rx Handicap Placard #1 ea 07/26/23 Unknown Rx leflunomide 20 mg tablet 20 mg PO DAILY #90 tabs 08/11/23 Unknown Rx amlodipine 10 mg tablet 10 mg PO DAILY #90 tabs 09/13/23 Unknown Rx budesonide-formoterol HFA 160 2 inh inhalation BID #3 ea 11/21/23 Unknown Rx mcg-4.5 mcg/actuation aerosol inhaler (Symbicort) semaglutide 1 mg/dose (4 mg/3 mL) 1 mg subcut QWEEK 04/01/24 11/12/24 History subcutaneous pen injector pregabalin 100 mg capsule 100 mg PO TID 06/12/24 Unknown History furosemide 20 mg tablet 20 mg PO QAM #30 tabs 09/16/24 Unknown Rx meloxicam 7.5 mg tablet 7.5 mg PO BID PRN pain #60 tabs 09/16/24 Unknown Rx potassium chloride 10 mEq 10 meq PO QDAY #30 tabs 09/16/24 Unknown Rx tablet,extended release tizanidine 4 mg tablet See Rx Instructions PO QHS PRN 09/16/24 Unknown Rx muscle spasticity/muscle pain/insomnia #180 tabs methylphenidate HCl 10 mg tablet 10 mg PO QDAY 10/21/24 Unknown History prednisone 5 mg tablet 10 mg PO PRN PRN PAIN 10/21/24 Unknown History 3 mL syringe with 1 inch 25-gauge #6 ea 10/24/24 Unknown Rx needle cyanocobalamin 1,500 mcg IM MONTHLY #2 vials 10/24/24 Unknown Rx propranolol 10 mg tablet 10 mg PO BID #60 tabs 10/24/24 Unknown Rx acyclovir 400 mg tablet 400 mg PO MOWEFR 11/12/24 Unknown History alendronate 70 mg tablet 70 mg PO QWEEK 11/12/24 Unknown History brexpiprazole 1 mg tablet (Rexulti) 1 mg PO DAILY 11/12/24 Unknown History desvenlafaxine 100 mg 100 mg PO DAILY 11/12/24 Unknown History tablet,extended release 24 hr methylphenidate HCl 30 mg biphasic 60 mg PO BID 11/12/24 Unknown History 50-50 capsule,extended release perfluorohexyloctane (PF) 100 % 1 drp ophthalmic (eye) Q6H 11/12/24 Unknown History eye drops (Miebo (PF)) Allergy/AdvReac Type Severity Reaction Status Date / Time Penicillins Allergy Mild Hives Verified 11/12/24 10:54 adhesive tape AdvReac Severe Rash, Verified 11/12/24 10:54 itchy, raw acetaminophen (From Percocet) AdvReac Intermediate insomnia Verified 11/12/24 10:54 oxycodone (From Percocet) AdvReac Intermediate insomnia Verified 11/12/24 10:54 benzonatate (From Tessalon AdvReac Mild Itching Verified 11/12/24 10:54 Perles) Family History Brother CAD (coronary artery disease), Onset Age: 70 CABG Other Alcoholism Arthritis Asthma Heart disease Hyperlipemia Hypertension Surgical History (Updated 11/12/24 @ 11:15 by Bobbi Sotomayor) Hx of colonoscopy Hx of colonoscopy Status post left foot surgery Hx of shoulder surgery History of hysterectomy History of foot surgery History of back surgery Status post trigger finger release History of carpal tunnel surgery History of rotator cuff surgery Social History (Reviewed 02/17/25 @ 13:25 by Radha Pérez Smoking Status: Current every day smoker tobacco type: e-cigarettes Tobacco: How many years used: 40 Electronic Cigarette Use: with nicotine second hand exposure: Yes quit status: considering quitting alcohol intake: former substance use type: does not use what type of physical activity do you participate in: walking Addt'l Information Additional Findings: Patient is on ozempic -- will need to have been held for 7 days.
--- NOTE | 2024-11-12 16:22 | PAT.ANESEVAL ---
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 When Was Last Pacemaker Check QUESTION #4 FULL TEXT: You/Your Family Experience fever (hyperthermia) with Anesthesia Last Oral Intake Last Oral intake: Last Oral Intake NPO since Meds taken in AM with sips of water? Meds patient instructed to take am of surgery PONV PONV - glass laminating operator: PONV - glass laminating operator Female Yes 11/12/24 11:15 HX of Motion Sickness No 11/12/24 11:15 HX of N/V After Surgery No 11/12/24 11:15 Non-Smoker No 11/12/24 11:15 Duration of Surgery greater No 11/12/24 11:15 than 60 minutes Number of Risk Factors 1 11/12/24 11:15 PONV Score Low Risk 11/12/24 11:15 Height & Weight Height & Weight: Anesthesia: Height & Weight Height 4 ft 11 in 10/17/24 11:47 Respiratory Assessment Respiratory Assessment - glass laminating operator: Respiratory Tract Infection Hx - glass laminating operator Hx Respiratory Tract Infection No 11/12/24 11:15 STOP Sleep Apnea STOP Sleep Apnea - glass laminating operator: STOP Sleep Apnea - glass laminating operator Hx Hypertension Yes: CONTROLLED WITH MED 11/12/24 11:15 Hx Sleep Apnea No 11/12/24 11:15 CPAP No 11/12/24 11:15 BIPAP Do you snore loudly (louder No 11/12/24 11:15 than talking or can be heard Do you often feel tired/ No 11/12/24 11:15 fatigued/ sleepy during daytime? Has anyone observed you stop No 11/12/24 11:15 breathing during sleep? STOP Results Negative 11/12/24 11:15 QUESTION #5 FULL TEXT : Do you snore loudly (louder than talking or can be heard through closed doors)? 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 Specify any problems Hx of Preganancy in last 3 No 11/12/24 11:15 Months Nurse Filling Out Transfusion VCHRISTIN 11/12/24 11:15 & Questions: Date: 11/12/24 11/12/24 11:15 Time: 11:18 11/12/24 11:15 Patient unable to answer at this time (ie. confused, unrespo /Reproduction History /Reproductive History - glass laminating operator: /Reproductive Hx- glass laminating operator Hx Now Gestational Age (in weeks): EDC: Hx Hx Para [facility] Medical History (Updated 11/12/24 @ 11:15 by Bobbi Sotomayor) Vapes nicotine containing substance Osteoarthritis Lumbar radiculopathy Impacted cerumen of both ears Wears glasses High cholesterol Former smoker Hypertension History of echocardiogram History of stress test Cardiology follow-up encounter Vitamin deficiency Chronic constipation Borderline type 2 diabetes mellitus Alcohol use disorder in remission Depression, unspecified ADHD Heat intolerance Osteopenia with high risk of fracture Smoking greater than 40 pack years Tremor Nicotine dependence, cigarettes, uncomplicated Insomnia CARBAJAL (dyspnea on exertion) Shortness of breath Abnormal EKG AA (alcohol abuse) COVID-19 vaccine series completed Essential hypertension Acute low back pain ADD (attention deficit disorder) Back pain Jaw swelling Low back pain due to bilateral sciatica Tobacco use disorder, continuous Encounter for screening for malignant neoplasm of lung in current smoker with 30 pack year history or greater Post-menopausal Eosinophilia Abnormal bruising Hay fever Fatigue Spinal cord stimulator status Overweight GERD (gastroesophageal reflux disease) Rheumatoid arthritis Primary osteoarthritis of left hip Vitamin D deficiency Anxiety and depression Rheumatoid arthritis Neuropathy Hyperlipemia Chronic bronchitis Cataracts, bilateral Asthma History of alcohol abuse Seasonal allergies Unilateral primary osteoarthritis, right hip Spondylosis of 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 myelopathy or radiculopathy Spinal stenosis of lumbosacral region Radiculopathy of lumbosacral region Degeneration, intervertebral disc, lumbosacral Home Medications ?Medication ?Instructions ?Recorded ?Last Taken ?Type blood pressure monitor (Blood #1 ea 09/30/20 Unknown Rx Pressure Kit) linaclotide 72 mcg capsule See Rx Instructions .Route 10/07/22 Unknown Rx .COMPLEX 3 months #90 caps calcium 600 mg (as 1 cap PO DAILY 10/27/22 Unknown History carbonate)-vitamin D3 10 mcg (400 unit) capsule omeprazole 40 mg capsule,delayed 40 mg PO DAILY #90 caps 12/15/22 02/28/23 09:30 Rx release albuterol sulfate 90 mcg/actuation 2 puff inhalation Q6H PRN 02/23/23 Unknown Rx aerosol inhaler (ProAir HFA) shortness of breath or wheezing #8.5 grams losartan 100 mg tablet 100 mg PO DAILY #90 tabs 07/18/23 Unknown Rx Handicap Placard #1 ea 07/26/23 Unknown Rx leflunomide 20 mg tablet 20 mg PO DAILY #90 tabs 08/11/23 Unknown Rx amlodipine 10 mg tablet 10 mg PO DAILY #90 tabs 09/13/23 Unknown Rx budesonide-formoterol HFA 160 2 inh inhalation BID #3 ea 11/21/23 Unknown Rx mcg-4.5 mcg/actuation aerosol inhaler (Symbicort) semaglutide 1 mg/dose (4 mg/3 mL) 1 mg subcut QWEEK 04/01/24 11/12/24 History subcutaneous pen injector pregabalin 100 mg capsule 100 mg PO TID 06/12/24 Unknown History furosemide 20 mg tablet 20 mg PO QAM #30 tabs 09/16/24 Unknown Rx meloxicam 7.5 mg tablet 7.5 mg PO BID PRN pain #60 tabs 09/16/24 Unknown Rx potassium chloride 10 mEq 10 meq PO QDAY #30 tabs 09/16/24 Unknown Rx tablet,extended release tizanidine 4 mg tablet See Rx Instructions PO QHS PRN 09/16/24 Unknown Rx muscle spasticity/muscle pain/insomnia #180 tabs methylphenidate HCl 10 mg tablet 10 mg PO QDAY 10/21/24 Unknown History prednisone 5 mg tablet 10 mg PO PRN PRN PAIN 10/21/24 Unknown History 3 mL syringe with 1 inch 25-gauge #6 ea 10/24/24 Unknown Rx needle cyanocobalamin 1,500 mcg IM MONTHLY #2 vials 10/24/24 Unknown Rx propranolol 10 mg tablet 10 mg PO BID #60 tabs 10/24/24 Unknown Rx acyclovir 400 mg tablet 400 mg PO MOWEFR 11/12/24 Unknown History alendronate 70 mg tablet 70 mg PO QWEEK 11/12/24 Unknown History brexpiprazole 1 mg tablet (Rexulti) 1 mg PO DAILY 11/12/24 Unknown History desvenlafaxine 100 mg 100 mg PO DAILY 11/12/24 Unknown History tablet,extended release 24 hr methylphenidate HCl 30 mg biphasic 60 mg PO BID 11/12/24 Unknown History 50-50 capsule,extended release perfluorohexyloctane (PF) 100 % 1 drp ophthalmic (eye) Q6H 11/12/24 Unknown History eye drops (Miebo (PF)) Allergy/AdvReac Type Severity Reaction Status Date / Time Penicillins Allergy Mild Hives Verified 11/12/24 10:54 adhesive tape AdvReac Severe Rash, Verified 11/12/24 10:54 itchy, raw acetaminophen (From Percocet) AdvReac Intermediate insomnia Verified 11/12/24 10:54 oxycodone (From Percocet) AdvReac Intermediate insomnia Verified 11/12/24 10:54 benzonatate (From Tessalon AdvReac Mild Itching Verified 11/12/24 10:54 Perles) Family History Brother CAD (coronary artery disease), Onset Age: 70 CABG Other Alcoholism Arthritis Asthma Heart disease Hyperlipemia Hypertension Surgical History (Updated 11/12/24 @ 11:15 by Bobbi Sotomayor) Hx of colonoscopy Hx of colonoscopy Status post left foot surgery Hx of shoulder surgery History of hysterectomy History of foot surgery History of back surgery Status post trigger finger release History of carpal tunnel surgery History of rotator cuff surgery Social History (Reviewed 02/17/25 @ 13:25 by Radha Pérez Smoking Status: Current every day smoker tobacco type: e-cigarettes Tobacco: How many years used: 40 Electronic Cigarette Use: with nicotine second hand exposure: Yes quit status: considering quitting alcohol intake: former substance use type: does not use what type of physical activity do you participate in: walking Audit: Pertinent Findings Current Visit Impressions Current Visit Impressions: As per cardiology note - she does have a history of hypertension which is much better controlled at this particular time. Undergo an echocardiogram in June 2021 demonstrating preserved ejection fraction and a stress test at the same time demonstrating no evidence of ischemia. Recommendation is for her to continue the current medical therapy without us making any changes. She has no previous cardiac history other than hypertension who presented to our office for evaluation of her abnormal EKG. Her EKG did confirm T wave inversions anteriorly. She underwent a stress test in 06/2021 which was negative for any ischemia. Recommendation Anesthesia Recommendation Anesthesia recommendation: OPTIMIZED for anesthesia (IF ozempic held for 7 days )
[2024-11-26] VITALS (9 sets, daily range): BP systolic 89–171; BP diastolic 65–88; PULSE 53–64; RESP 10–18; TEMP 36.7–37.4; O2SAT 95–100; BMI 26.2
--- NOTE | 2024-11-26 07:12 | PCM.HP.BLA ---
History and Physical Date of Admission: 11/26/24 [facility] [address] [place] [address] OFFICE VISIT Date of Service: 10/21/24 MR#: [id number] Acct: [id number] Name: LELE ABDUL Rep #: [id number] : 1955 Provider: Dr. Dre Ordaz DO Age/Sex: 69/F Location: [facility] [place] Status: Signed Intake Vital Signs 09/16/2513:40 10/14/2510:07 10/17/2510:47 Height 4 ft 11 in 4 ft 11 in 4 ft 11 in Weight: 126 lb 125 lb 13 oz BMI 25.4 25.4 BP 148/86 H 170/100 H Blood Pressure Location Lt brachial Lt brachial Position Sitting Sitting Respiration 15 17 Pulse 81 78 Pulse Source Monitor Monitor Temp 98.4 F 98.4 F Temp Source Temporal Temporal Pulse Oximetry (%) 97 98 Oxygen Delivery Method room air room air Intake Visit Reasons: LEFT HAND Chief Complaint: Bilateral hand ring fingers Allergies Penicillins Allergy (Mild, Verified 10/21/24 13:24) Hivesadhesive tape Adverse Reaction (Severe, Verified 10/21/24 13:24) Rash, itchy, rawacetaminophen (From Percocet) Adverse Reaction (Intermediate, Verified 10/21/24 13:24) insomniaoxycodone (From Percocet) Adverse Reaction (Intermediate, Verified 10/21/24 13:24) insomniabenzonatate (From Tessalon Perles) Adverse Reaction (Mild, Verified 10/21/24 13:24) Itching Medications ?Medication ?Instructions ?Recorded ?Confirmed ?Type multivitamin,rd-[id number] 1 tab PO DAILY 04/21/20 10/21/24 History (Complete Multivitamin tablet) blood pressure monitor (Blood #1 ea 09/30/20 04/01/24 Rx Pressure Kit) cholecalciferol (vitamin D3) 125 125 mcg PO DAILY 11/03/21 10/21/24 History mcg (5,000 unit) capsule magnesium 250 mg tablet 250 mg PO DAILY 11/03/21 10/21/24 History linaclotide 72 mcg capsule See Rx Instructions .Route 10/07/22 10/21/24 Rx .COMPLEX 3 months #90 caps calcium 600 mg (as 1 cap PO DAILY 10/27/22 10/21/24 History carbonate)-vitamin D3 10 mcg (400 unit) capsule omeprazole 40 mg capsule,delayed 40 mg PO DAILY #90 caps 12/15/22 10/21/24 Rx release albuterol sulfate 90 mcg/actuation 2 puff inhalation Q6H PRN 02/23/23 10/21/24 Rx aerosol inhaler (ProAir HFA) shortness of breath or wheezing #8.5 grams pravastatin 40 mg tablet 40 mg PO MOWEFR #90 tabs 05/15/23 10/21/24 Rx losartan 100 mg tablet 100 mg PO DAILY #90 tabs 07/18/23 10/21/24 Rx Handicap Placard #1 ea 07/26/23 04/01/24 Rx desvenlafaxine succinate 50 mg 50 mg PO DAILY #30 tabs 08/02/23 10/21/24 Rx tablet,extended release 24 hr leflunomide 20 mg tablet 20 mg PO DAILY #90 tabs 08/11/23 10/21/24 Rx amlodipine 10 mg tablet 10 mg PO DAILY #90 tabs 09/13/23 10/21/24 Rx budesonide-formoterol HFA 160 2 inh inhalation BID #3 ea 11/21/23 10/21/24 Rx mcg-4.5 mcg/actuation aerosol inhaler (Symbicort) semaglutide 1 mg/dose (4 mg/3 mL) 1 mg subcut QWEEK 04/01/24 10/21/24 History subcutaneous pen injector dextroamphetamine-amphetamine ER 1 cap PO QDAY 05/03/24 10/21/24 History 30 mg 24hr capsule,extend release pregabalin 100 mg capsule 100 mg PO TID 06/12/24 10/21/24 History furosemide 20 mg tablet 20 mg PO QAM #30 tabs 09/16/24 10/21/24 Rx meloxicam 7.5 mg tablet 7.5 mg PO BID PRN pain #60 tabs 09/16/24 10/21/24 Rx potassium chloride 10 mEq 10 meq PO QDAY #30 tabs 09/16/24 10/21/24 Rx tablet,extended release tizanidine 4 mg tablet See Rx Instructions PO QHS PRN 09/16/24 10/21/24 Rx muscle spasticity/muscle pain/insomnia #180 tabs flurbiprofen 100 mg tablet 100 mg PO TID 10/21/24 10/21/24 History methylphenidate HCl 10 mg tablet 10 mg PO QDAY 10/21/24 10/21/24 History prednisone 5 mg tablet 10 mg PO PRN PRN PAIN 10/21/24 History Have you fallen in the past year?: No PFSH Medical History Osteoarthritis Lumbar radiculopathy Impacted cerumen of both ears Wears glasses High cholesterol Former smoker Hypertension History of echocardiogram History of stress test Cardiology follow-up encounter Vitamin deficiency Chronic constipation Borderline type 2 diabetes mellitus Alcohol use disorder in remission Depression, unspecified ADHD Heat intolerance Osteopenia with high risk of fracture Smoking greater than 40 pack years Tremor Nicotine dependence, cigarettes, uncomplicated Insomnia CARBAJAL (dyspnea on exertion) Shortness of breath Abnormal EKG AA (alcohol abuse) COVID-19 vaccine series completed Essential hypertension Acute low back pain ADD (attention deficit disorder) Back pain Jaw swelling Low back pain due to bilateral sciatica Tobacco use disorder, continuous Encounter for screening for malignant neoplasm of lung in current smoker with 30 pack year history or greater Post-menopausal Eosinophilia Abnormal bruising Hay fever Fatigue Spinal cord stimulator status Overweight GERD (gastroesophageal reflux disease) Rheumatoid arthritis Primary osteoarthritis of left hip Vitamin D deficiency Anxiety and depression Rheumatoid arthritis Neuropathy Hyperlipemia Chronic bronchitis Cataracts, bilateral Asthma History of alcohol abuse Seasonal allergies Unilateral primary osteoarthritis, right hip Spondylosis of 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 myelopathy or radiculopathy Spinal stenosis of lumbosacral region Radiculopathy of lumbosacral region Degeneration, intervertebral disc, lumbosacral Surgical History Hx of colonoscopy Status post left foot surgery Hx of shoulder surgery History of hysterectomy History of foot surgery History of back surgery Status post trigger finger release History of carpal tunnel surgery History of rotator cuff surgery Family History Brother CAD (coronary artery disease), Onset Age: 70 CABGOther Alcoholism Arthritis Asthma Heart disease Hyperlipemia Hypertension Social History Smoking Status: Current every day smoker tobacco type: cigarettes Tobacco: How many years used: 40 Electronic Cigarette Use: with nicotine second hand exposure: Yes quit status: considering quitting alcohol intake: former substance use type: does not use what type of physical activity do you participate in: walking HPI LEFT HAND Details: This documentation accurately reflects the service provided and the decisions made by me, Dr. Dre Ordaz, DO 10/21/24 0826. Part of today?s visit was documented by Radha Mcfadden RN, acting as scribe. LELE ABDUL is a 69 year old F here today for evaluation of bilateral trigger finger on the 4th digit. This has been going on for 3 weeks. The left 4th digit is worse than the right. She has had the right ring finger released in the past around 2019. Again the left finger is more symptomatic for her she states that upon waking the finger is stuck and she will have to pull it open. She has received injections in the past for trigger finger and it was not helpful so she proceeded with surgery. She reports previous trigger finger release in her left hand thumb, middle finger and fifth digit and right hand thumb and ring digit. She has not tried splinting or injections for this left ring finger. Ortho Exam General General: Yes no acute distress Neurologic: Yes alert and Yes oriented x3 Psychologic: Yes reasonable and appropriate Right Wrist/Hand WRIST: thumb,middle and ring finger- trigger finger release 2019 scars present No palpable triggering of the ring finger right now Left Wrist/Hand WRIST: She does have a tender hypertrophied A1 adrianna of the ring finger I cannot appreciate triggering right now she states it is worse in the morning. She does have a scar on the thumb from previous surgery Flexor extensor tendons intact. Head: Normocephalic Atraumatic Chest: symmetrical rise, non-labored breathing, no audible wheeze Abdomen: no guarding, non-rigid Supplemental Info 01/17/2024 x-ray left knee: Preserved joint space there is mild spurring throughout the knee 09/27/2023 x-ray lumbar spine: Posterior lateral instrumented hardware of the lumbar spine L4-L5, spinal cord stimulator leads in the thoracic spine 07/14/2023 MRI report was at orthopedics: Focal high-grade chondromalacia of the medial femoral condyle grade III chondromalacia trochlear groove thin medial meniscus undersurface tear inner two thirds posterior horn, 1 cm 03/15/2023 x-ray bilateral hips there is mild spurring of the femoral head right hip preserved joint space there is a spinal cord stimulator battery overlapping the image of the left hip 11/12/2020 left knee MRI MRI report [facility]: Chronic infrapatellar fat pad inflammation complete full-thickness tear of the PCL swelling of the ACL. Posterior capsular swelling fraying of the medial meniscus posterior horn moderate cartilage thinning of the medial and lateral femoral condyle weightbearing surface grade 3 with small focal penetrating erosion in the central weightbearing femoral condyle. Strain of the medial gastroc Coding Level of Care Code Off vis,est,level 4 Diagnoses Trigger finger, left ring finger M65.342 Trigger finger, right ring finger M65.341 Rheumatoid arthritis with positive rheumatoid factor, involving unspecified site M05.9 Rheumatoid arthritis location: unspecified site Rheumatoid factor presence: with rheumatoid factor Assessment and Plan Assessment and Plan (1) Trigger finger, left ring finger: Status: Acute (2) Trigger finger, right ring finger: Status: Acute (3) Rheumatoid arthritis: Status: Chronic Qualifiers: Rheumatoid arthritis location: unspecified site Rheumatoid factor presence: with rheumatoid factor Qualified Code(s): M05.9 - Rheumatoid arthritis with rheumatoid factor, unspecified Plan Patient is here today for bilateral hand ring finger trigger finger. Left being more symptomatic history of right release by another surgeon in the past. I spoke with patient that her treatment options are do nothing, injection, or A1 adrianna release. Patient wishes to proceed with with an A1 adrianna release of left ring finger and injection of right ring finger. Reviewed the pre-operative plans with the patient. Reviewed the pre-operative plans with the patient. Risks and benefits of the procedure were fully explained, including but not limited to infection, neurovascular injury, continued pain, arthritis, stiffness, need for further surgery, recurrence. The patient understands all the risks and does wish to proceed with written consent. I did benefits counselor her to stop all NSAIDs including Mobic and flurbiprofen for 7 days prior to surgery. I did explain to her with her overlapping rheumatoid arthritis she may continue to have pain in her knuckles she understands. Tentative surgery date November 26, 2024 same-day surgery Clinical Quality Measures Falls Risk Screening/Assistive Devices Have you fallen in the past year?: No 10/21/24 1413 <Electronically signed by Dre Ordaz DO> Date Dre Sushma DO Doll Signature: Date (if applicable) I have examined the patient and the H&P has been reviewed. There are no clinical changes since date of exam.
--- NOTE | 2024-11-26 07:22 | PCM.PRE.AN2 ---
ASA Classification* ASA Classification ASA Classification: 3 Assessment & Plan Anesthesia* Anesthesia Assessment Anesthesia Assessment: Discussed sedation and/or anesthesia options, risks, benefits, and alternatives with patient/parents/legal guardian/POA. Questions invited. The patient/parents/legal guardian/POA seems to understand and agrees to proceed with anesthesia plan. Reviewed the physical assessment, medical history, allergy history and patient home medications list prior to surgery/procedure/anesthetic and documented any changes. Performed airway and anesthesia risk assessments. Anesthesia Type Anesthesia Type: MAC History Source History Obtained from:: Patient and Chart Anesthesia Focused Assessment* Temperature: 98.1 F Pulse Rate: 58 Blood Pressure: 171/88 Respiratory Rate: 16 Pulse Ox: 98 Oxygen Delivery Method: Room Air Airway Assessment Mouth opens: >3 cm Mallampati Score: I Teeth Condition: Caps/Crowns (Patient has a couple crowns.), Missing (Patient has 1 missing molar right lower jaw.) and Partial (Patient has a permanent lower bridge. It is tight.) Neck Range of motion (ROM): Limited ROM (Somewhat decreased extension) Focused Labs Anesthesia Preop lab: CBC WBC 5.1 K/mm3 (4.4-11.0) 07/25/24 12:24 07/25/24 RBC 4.26 M/mm3 (4.2-5.4) 07/25/24 12:24 07/25/24 Hgb 12.2 g/dL (12.0-15.0) 07/25/24 12:24 07/25/24 Hct 38.6 % (37-47) 07/25/24 12:24 07/25/24 Plt Count 264 K/mm3 (150-450) 07/25/24 12:24 07/25/24 CHEMISTRY Potassium 3.7 mmol/L (3.5-5.1) 10/23/24 13:42 10/23/24 Sodium 140 mmol/L (136-145) 10/23/24 13:42 10/23/24 BUN 23 mg/dL (7-18) H 10/23/24 13:42 10/23/24 Creatinine 0.92 mg/dL (0.55-1.02) 10/23/24 13:42 10/23/24 Glucose 91 mg/dL (74-106) 10/23/24 13:42 10/23/24 TSH 0.678 uIU/mL (0.358-3.740) 07/25/24 12:24 07/25/24 COAG PT 11.8 SECONDS (11.7-14.9) 03/17/21 15:37 03/17/21 Pre-Assessment Diagnosis/Proposed Procedure Planned Operative Procedure(s): (B) Left ring finger A1 adrianna release and right ring finger A1 adrianna injection Anesthesia History 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 When Was Last Pacemaker Check QUESTION #4 FULL TEXT: You/Your Family Experience fever (hyperthermia) with Anesthesia Last Oral Intake Last Oral intake: Last Oral Intake NPO since 00:00 11/26/24 06:31 Meds taken in AM with sips of Yes 11/26/24 06:31 water? Meds patient instructed to symbicort 11/26/24 06:31 take am of surgery masoud hanson PONV PONV - mechanics handyman: PONV - mechanics handyman Female Yes 11/12/24 11:15 HX of Motion Sickness No 11/12/24 11:15 HX of N/V After Surgery No 11/12/24 11:15 Non-Smoker No 11/12/24 11:15 Duration of Surgery greater No 11/12/24 11:15 than 60 minutes Number of Risk Factors 1 11/12/24 11:15 PONV Score Low Risk 11/12/24 11:15 Height & Weight Height & Weight: Anesthesia: Height & Weight Height 4 ft 10 in 11/26/24 06:31 Weight: 57 kg 11/26/24 06:31 Body Mass Index (BMI) 26.2 11/26/24 06:31 Respiratory Assessment Respiratory Assessment - mechanics handyman: Respiratory Tract Infection Hx - mechanics handyman Hx Respiratory Tract Infection No 11/12/24 11:15 STOP Sleep Apnea STOP Sleep Apnea - mechanics handyman: STOP Sleep Apnea - mechanics handyman Hx Hypertension Yes: CONTROLLED WITH MED 11/12/24 11:15 Hx Sleep Apnea No 11/12/24 11:15 CPAP No 11/12/24 11:15 BIPAP Do you snore loudly (louder No 11/12/24 11:15 than talking or can be heard Do you often feel tired/ No 11/12/24 11:15 fatigued/ sleepy during daytime? Has anyone observed you stop No 11/12/24 11:15 breathing during sleep? STOP Results Negative 11/12/24 11:15 QUESTION #5 FULL TEXT : Do you snore loudly (louder than talking or can be heard through closed doors)? 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 Specify any problems Hx of Preganancy in last 3 No 11/12/24 11:15 Months Nurse Filling Out Transfusion VCHRISTIN 11/12/24 11:15 & Questions: Date: 11/12/24 11/12/24 11:15 Time: 11:18 11/12/24 11:15 Patient unable to answer at this time (ie. confused, unrespo /Reproduction History /Reproductive History - mechanics handyman: /Reproductive Hx- mechanics handyman Hx Now Gestational Age (in weeks): EDC: Hx Hx Para Hx Section SAB Active Medications Active Medications: Current Medications Generic Name Dose Route Start Last Admin Trade Name Freq PRN Reason Stop Dose Admin Clindamycin Phosphate 900 mg in 50 mls @ 75 mls/hr 11/26/24 07:30 Cleocin IV 11/26/24 08:09 PREOP ONE [facility] Medical History Impingement of right shoulder Primary osteoarthritis, right shoulder Right shoulder pain Vapes nicotine containing substance Osteoarthritis Lumbar radiculopathy Impacted cerumen of both ears Wears glasses High cholesterol Former smoker Hypertension History of echocardiogram History of stress test Cardiology follow-up encounter Vitamin deficiency Chronic constipation Borderline type 2 diabetes mellitus Alcohol use disorder in remission Depression, unspecified ADHD Heat intolerance Osteopenia with high risk of fracture Smoking greater than 40 pack years Tremor Nicotine dependence, cigarettes, uncomplicated Insomnia CARBAJAL (dyspnea on exertion) Shortness of breath Abnormal EKG AA (alcohol abuse) COVID-19 vaccine series completed Essential hypertension Acute low back pain ADD (attention deficit disorder) Back pain Jaw swelling Low back pain due to bilateral sciatica Tobacco use disorder, continuous Encounter for screening for malignant neoplasm of lung in current smoker with 30 pack year history or greater Post-menopausal Eosinophilia Abnormal bruising Hay fever Fatigue Spinal cord stimulator status Overweight GERD (gastroesophageal reflux disease) Rheumatoid arthritis Primary osteoarthritis of left hip Vitamin D deficiency Anxiety and depression Rheumatoid arthritis Neuropathy Hyperlipemia Chronic bronchitis Cataracts, bilateral Asthma History of alcohol abuse Seasonal allergies Unilateral primary osteoarthritis, right hip Spondylosis of 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 myelopathy or radiculopathy Spinal stenosis of lumbosacral region Radiculopathy of lumbosacral region Degeneration, intervertebral disc, lumbosacral Home Medications ?Medication ?Instructions ?Recorded ?Last Taken ?Type blood pressure monitor (Blood #1 ea 09/30/20 Unknown Rx Pressure Kit) linaclotide 72 mcg capsule See Rx Instructions .Route 10/07/22 Unknown Rx .COMPLEX 3 months #90 caps calcium 600 mg (as 1 cap PO DAILY 10/27/22 Unknown History carbonate)-vitamin D3 10 mcg (400 unit) capsule omeprazole 40 mg capsule,delayed 40 mg PO DAILY #90 caps 12/15/22 02/28/23 09:30 Rx release albuterol sulfate 90 mcg/actuation 2 puff inhalation Q6H PRN 02/23/23 Unknown Rx aerosol inhaler (ProAir HFA) shortness of breath or wheezing #8.5 grams losartan 100 mg tablet 100 mg PO DAILY #90 tabs 07/18/23 11/26/24 Rx Handicap Placard #1 ea 07/26/23 Unknown Rx leflunomide 20 mg tablet 20 mg PO DAILY #90 tabs 08/11/23 Unknown Rx amlodipine 10 mg tablet 10 mg PO DAILY #90 tabs 09/13/23 Unknown Rx budesonide-formoterol HFA 160 2 inh inhalation BID #3 ea 11/21/23 11/26/24 Rx mcg-4.5 mcg/actuation aerosol inhaler (Symbicort) semaglutide 1 mg/dose (4 mg/3 mL) 1 mg subcut QWEEK 04/01/24 11/12/24 History subcutaneous pen injector pregabalin 100 mg capsule 100 mg PO TID 06/12/24 11/26/24 History furosemide 20 mg tablet 20 mg PO QAM #30 tabs 09/16/24 Unknown Rx meloxicam 7.5 mg tablet 7.5 mg PO BID PRN pain #60 tabs 09/16/24 Unknown Rx potassium chloride 10 mEq 10 meq PO QDAY #30 tabs 09/16/24 Unknown Rx tablet,extended release tizanidine 4 mg tablet See Rx Instructions PO QHS PRN 09/16/24 Unknown Rx muscle spasticity/muscle pain/insomnia #180 tabs methylphenidate HCl 10 mg tablet 10 mg PO QDAY 10/21/24 Unknown History prednisone 5 mg tablet 10 mg PO PRN PRN PAIN 10/21/24 Unknown History 3 mL syringe with 1 inch 25-gauge #6 ea 10/24/24 Unknown Rx needle cyanocobalamin 1,500 mcg IM MONTHLY #2 vials 10/24/24 Unknown Rx propranolol 10 mg tablet 10 mg PO BID #60 tabs 10/24/24 11/25/24 Rx acyclovir 400 mg tablet 400 mg PO MOWEFR 11/12/24 Unknown History alendronate 70 mg tablet 70 mg PO QWEEK 11/12/24 Unknown History brexpiprazole 1 mg tablet (Rexulti) 1 mg PO DAILY 11/12/24 Unknown History desvenlafaxine 100 mg 100 mg PO DAILY 11/12/24 Unknown History tablet,extended release 24 hr methylphenidate HCl 30 mg biphasic 60 mg PO BID 11/12/24 Unknown History 50-50 capsule,extended release perfluorohexyloctane (PF) 100 % 1 drp ophthalmic (eye) Q6H 11/12/24 Unknown History eye drops (Miebo (PF)) Allergy/AdvReac Type Severity Reaction Status Date / Time Penicillins Allergy Mild Hives Verified 11/19/24 13:35 adhesive tape AdvReac Severe Rash, Verified 11/19/24 13:35 itchy, raw acetaminophen (From Percocet) AdvReac Intermediate insomnia Verified 11/19/24 13:35 oxycodone (From Percocet) AdvReac Intermediate insomnia Verified 11/19/24 13:35 benzonatate (From Tessalon AdvReac Mild Itching Verified 11/19/24 13:35 Perles) Family History Brother CAD (coronary artery disease), Onset Age: 70 CABG Other Alcoholism Arthritis Asthma Heart disease Hyperlipemia Hypertension Surgical History Hx of colonoscopy Hx of colonoscopy Status post left foot surgery Hx of shoulder surgery History of hysterectomy History of foot surgery History of back surgery Status post trigger finger release History of carpal tunnel surgery History of rotator cuff surgery Social History Smoking Status: Current every day smoker tobacco type: e-cigarettes Tobacco: How many years used: 40 Electronic Cigarette Use: with nicotine second hand exposure: Yes quit status: considering quitting alcohol intake: former substance use type: does not use what type of physical activity do you participate in: walking Review of Systems (Anesthesia) ROS Narrative System reviewed and no additional complaints, except as documented.
[2024-11-26] MEDS: Clindamycin 900 MG/50 ML BAG 75 MG IV (07:35)
[2024-11-26] MEDS: MethylPREDNISolone Acetate 40 MG/ML Vial (07:50)
[2024-11-26] MEDS: Lidocaine 1% /Epi 1:100 (20ml) 20 ML Vial (07:51)
[2024-11-26] MEDS: Bupivacaine 0.5% PF 10 ML VIAL (07:51)
--- NOTE | 2024-11-26 08:03 | OP.PCM_ITS ---
Operative Report (Standard) Operative Information Date of Procedure: 11/26/24 Pre-Operative Diagnosis: Bilateral ring trigger Post-Operative Diagnosis: Bilateral Surgery/Procedure Performed: Left ring A1 adrianna release right ring A1 adrianna injection floor covering contractor: Yes Manager Outreach: Anderson Bach Tasks completed by engineering inspection assistant: Opening & closing Type of Anesthesia: Local and MAC RN Documented Start/Stop Times: Operation Date: 11/26/24 07:30 Case Time Into Pre-Op 11/26/24 06:01 Out of Pre-Op 11/26/24 07:31 Anesthesia Start 11/26/24 07:34 Into Room 11/26/24 07:34 Procedure Start 11/26/24 07:47 Procedure End 11/26/24 07:57 Anesthesia End 11/26/24 08:00 Out of Room 11/26/24 08:00 Procedure Start Time: 07:47 Procedure Stop Time: 07:57 Select all DRAINS/GRAFTS/IMPLANTS that apply: None Estimated Blood Loss: 1 Specimen collected: No Description of surgery: Preoperative diagnosis; bilateral fourth digit trigger finger Postoperative diagnosis; same Procedure: 1.) left fourth digit A1 adrianna release 2.) Right fourth digit A1 adrianna injection Anesthesia: Local with MAC Tourniquet time; 10 minutes 250 mm Hg Complications: None Indication for procedure; This is a [id number] with symptoms consistent with trigger finger. Risks benefits and alternatives were reviewed including risks of bleeding infection nerve tendon tissue damage need for further surgery and continued pain and symptoms, hypersensitivity to scar/incision and recurrence. Procedure; The patient was met in the preoperative holding area the operative extremity was identified by both patient and physician and was marked the patient was met by anesthesia and brought back to the operating room and transferred to the operating table in the supine position. Aanesthesia was started. A well-padded tourniquet was placed on the operative upper extremity. The patient was prepped and draped in the usual sterile fashion. A timeout was called to ensure the proper patient procedure and extremity were being contemplated. 0.5 percent Marcaine was injected into the incisional area. Esmarch was used tourniquet was inflated. 15 blade scalpel was used to make a longitudinal incision directly over the A1 adrianna was carried down through the subcutaneous tissue Emma retractors placed radial and ulnar protecting the digital nerves and a Ragnell retractor was used at the apex of the incision under direct visualization a deep blade scalpel was used to release the A1 adrianna. The wound was thoroughly irrigated and closed with 4-0 nylon vertical mattress edges. Dressing was applied in the form of Xeroform 4 x 4 web roll and an Micheal wrap. Attention was turned toward the right ring fourth digit it was prepped with alcohol and an injection with 20 mg of Depo-Medrol and 0.5 cc of 0.5% bupivacaine was injected into the A1 adrianna Band-Aid was placed over top Patient tolerated the procedure well was brought back to the PACU in stable condition. Surgical Findings: Trigger finger Complications Complications: No
--- NOTE | 2024-11-26 08:06 | DCINST_ITS ---
Discharge Instructions Diet Discharge Diet: No restrictions Dressing / Incision Call your doctor if you observe: Shortness of breath and Chest pain Additional Dressing/Incision Instructions:: Ice and elevate operative extremity next 72 hours. Keep dressing on clean and dry for 48 hours then may remove and allow warm soapy water to rinse over incision but do not submerge until sutures are out. Then apply bandaid over incision and change daily. encourage finger range of motion. Not lift more than 1/2 pound. Minimize narcotic use only as needed and directed, may use OTC NSAID and Tylenol to supplement/substitute for pain control. Follow Up Care Please Follow Up With: Dre Ordaz DO When: 2 weeks Test Results: Test results from this visit will be discussed in further detail at your follow- up appointment, if applicable. Discharge Plan Admission Primary Reason for Your Visit: Left A1 adrianna release Attending Provider: Dre Ordaz Primary Care Provider: Kvng Orellana [facility] Instructions Print Language: Russian Discharge Orders/Prescriptions Prescriptions: New hydrocodone-acetaminophen 5-325 mg tablet 1 tab PO Q4H PRN (Reason: pain) 3 Days Qty: 5 0RF No Action (DME) blood pressure monitor [Blood Pressure Kit] Kit See Rx Instructions .ROUTE .MEDSUPPLY Qty: 1 0RF Rx Instructions: Check blood pressure daily for hypertension I10 calcium carbonate-vitamin D3 600 mg-10 mcg (400 unit) capsule 1 cap PO DAILY albuterol sulfate [ProAir HFA] 90 mcg/actuation HFA aerosol inhaler 2 puff INHALATION Q6H PRN (Reason: shortness of breath or wheezing) Qty: 8.5 3RF semaglutide 1 mg/dose (4 mg/3 mL) pen injector 1 mg subcut QWEEK Patient Comments: TAKES ON MONDAY, LAST 11/12/2024 TAKES FOR WEIGHT LOSS (DME) Handicap Placard See Rx Instructions .ROUTE .MEDSUPPLY Qty: 1 0RF Rx Instructions: As directed, length of time 3 years pregabalin 100 mg capsule 100 mg PO TID furosemide 20 mg tablet 20 mg PO QAM Qty: 30 5RF tizanidine 4 mg tablet See Rx Instructions PO QHS PRN (Reason: muscle spasticity/muscle pain/insomnia) Qty: 180 1RF Rx Instructions: Take 1 to 2 tablets orally at bedtime PRN meloxicam 7.5 mg tablet 7.5 mg PO BID PRN (Reason: pain) Qty: 60 5RF potassium chloride 10 mEq tablet extended release 10 meq PO QDAY Qty: 30 5RF propranolol 10 mg tablet 10 mg PO BID Qty: 60 4RF cyanocobalamin 1,000 mcg/mL 1,500 mcg IM MONTHLY Qty: 2 6RF Rx Instructions: Dispense two 1 mL vials monthly. (DME) 3 mL syringe with 1 inch 25-gauge needle See Rx Instructions .Route .MEDSUPPLY Qty: 6 0RF Rx Instructions: As directed methylphenidate HCl 10 mg tablet 10 mg PO QDAY prednisone 5 mg tablet 10 mg PO PRN PRN (Reason: PAIN) acyclovir 400 mg tablet 400 mg PO MOWEFR Patient Comments: MWF alendronate 70 mg tablet 70 mg PO QWEEK methylphenidate HCl 30 mg capsule,ER biphasic 50-50 60 mg PO BID desvenlafaxine 100 mg tablet extended release 24 hr 100 mg PO DAILY Rexulti 1 mg tablet 1 mg PO DAILY Miebo (PF) 100 % drops 1 drp ophthalmic (eye) Q6H Patient Comments: [NO ORIGINAL SIG] linaclotide 72 mcg capsule See Rx Instructions .ROUTE .COMPLEX 90 Days Qty: 90 3RF Dose Instruction: Take 1 capsule by mouth once daily Rx Instructions: Take 1 capsule by mouth once daily omeprazole 40 mg capsule,delayed release(DR/EC) 40 mg PO DAILY Qty: 90 3RF losartan 100 mg tablet 100 mg PO DAILY Qty: 90 3RF leflunomide 20 mg tablet 20 mg PO DAILY Qty: 90 3RF amlodipine 10 mg tablet 10 mg PO DAILY Qty: 90 3RF budesonide-formoterol [Symbicort] 160-4.5 mcg/actuation HFA aerosol inhaler 2 inh inhalation BID Qty: 3 3RF Rx Instructions: administer with spacer, rinse mouth after each use Referrals / Follow Up: Kvng Orellana Uma, [facility] [Primary Care Provider] - Disposition Disposition (needs filled in before D/C Order can be placed): Home, Self Care
--- NOTE | 2024-11-26 08:08 | PCM.POST.ANE ---
Anesthesia: Postop Eval I Current Vital Signs Temperature: 98.3 F Pulse Rate: 64 Blood Pressure: 97/70 Respiratory Rate: 12 Pulse Ox: 99 Oxygen Delivery Method: Nasal Cannula Oxygen Flow Rate (L/min): 6 Assessment Airway patent: Yes Spontaneous unlabored respirations: Yes Mental status: Asleep nausea: No Vomiting: No Anesthesia Complication: No Fluid Hydration Crystalloid volume administer (ml): 10 Total IV fluid infused: 10 Progress Note Anesthesia document: Postop Eval 1 completed: Yes
--- NOTE | 2024-11-26 08:57 | POSTOPAN2_ITS ---
Anesthesia Postop Eval I Sum Postop Eval Completion status Anesthesia document: Postop Eval 1 completed: Yes Anesthesia Postop Eval I Summary Anesthesia Postop Eval I Summary: Anesthesia Postop Eval I: Assessment Summary Airway patent Yes 11/26/24 08:10 EVENT [email or web address] Spontaneous unlabored Yes 11/26/24 08:10 EVENT [email or web address] respirations Mental status Asleep 11/26/24 08:10 EVENT [email or web address] nausea No 11/26/24 08:10 EVENT [email or web address] Vomiting No 11/26/24 08:10 EVENT [email or web address] Anesthesia Postop Eval I: Fluid Summary Crystalloid volume administer 10 11/26/24 08:10 EVENT [email or web address] (ml) Colloids volume administered ( ml) Blood Product volume administered (ml) Total IV fluid infused 10 11/26/24 08:10 EVENT [email or web address] Anesthesia Postop Eval I: Summary Notes Anesthesia Complication No 11/26/24 08:10 EVENT [email or web address] Anesthesia Complication Comment: Post-operative progress note Anesthesia: Postop Eval II Evaluation Mental status: Awake and Calm Pain Level: 1 nausea: No Vomiting: No Complications Anesthesia Complication: No
--- NOTE | 2024-11-26 08:57 | PCM.POSTANE2 ---
Anesthesia Postop Eval I Sum Postop Eval Completion status Anesthesia document: Postop Eval 1 completed: Yes Anesthesia Postop Eval I Summary Anesthesia Postop Eval I Summary: Anesthesia Postop Eval I: Assessment Summary Airway patent Yes 11/26/24 08:10 [email or web address] Spontaneous unlabored Yes 11/26/24 08:10 [email or web address] [email or web address] respirations Mental status Asleep 11/26/24 08:10 [email or web address] [email or web address] nausea No 11/26/24 08:10 [email or web address] [email or web address] Vomiting No 11/26/24 08:10 FASHION [email or web address] Anesthesia Postop Eval I: Fluid Summary Crystalloid volume administer 10 11/26/24 08:10 FASHION [email or web address] (ml) Colloids volume administered ( ml) Blood Product volume administered (ml) Total IV fluid infused 10 11/26/24 08:10 FASHION [email or web address] Anesthesia Postop Eval I: Summary Notes Anesthesia Complication No 11/26/24 08:10 FASHION [email or web address] Anesthesia Complication Comment: Post-operative progress note Anesthesia: Postop Eval II Evaluation Mental status: Awake and Calm Pain Level: 1 nausea: No Vomiting: No Complications Anesthesia Complication: No
== END 2024-11-26 09:10 | disposition home or self-care (01) ==
LOC: SDC 05:58 → AC 06:07
PROVIDERS: PCP Nurse Practitioner Family; Referring Provider Orthopaedic Surgery; Visit Provider Orthopaedic Surgery
PROC: (CPT 26055; principal; 2024-11-26 07:20)
DX: M65.342 Trigger finger, left ring finger (principal); M05.9 Rheumatoid arthritis with rheumatoid factor, unspecified; K21.9 Gastro-esophageal reflux disease without esophagitis; E78.00 Pure hypercholesterolemia, unspecified; F90.9 Attention-deficit hyperactivity disorder, unspecified type; M65.341 Trigger finger, right ring finger; I10 Essential (primary) hypertension; Z90.710 Acquired absence of both cervix and uterus; F17.210 Nicotine dependence, cigarettes, uncomplicated
CPT/HCPCS: 26055; 20550; 01810; A4216; J2405

== ENCOUNTER → 2024-12-14 | Outpatient (CLI) | payer MEDICARE, MEDICAID, SELFPAY ==
--- NOTE | 2024-12-14 11:15 | MRI_ITS ---
PROCEDURE: SPINE LUMBAR (ROUTINE) 12/14/2024 REASON FOR EXAM: PAIN TECHNIQUE: Multiplaner MRI of the lumbar spine performed without contrast. Multiple pulse sequences were obtained. COMPARISON: 11/13/2024 FINDINGS: Vertebral body heights are within normal limits. Negative for fracture or marrow replacement. Posterior fusion hardware at L4-5. Grade 1 anterolisthesis of L3-4 and L4-5. Conus medullaris is within normal limits and terminates at T11-12. Spinal stimulator in place with adjacent susceptibility artifact. No paraspinal mass. L1-2: No focal disc abnormality, spinal stenosis or foraminal narrowing. L2-3: Mild posterior disc bulge. Mild bilateral facet arthrosis and ligamentum flavum hypertrophy. Mild spinal stenosis. Mild bilateral foraminal narrowing, greater on the left. L3-4: Grade 1 anterolisthesis with uncovering of the posterior disc. Posterior disc bulge. Moderate/severe bilateral facet arthrosis and ligamentum flavum hypertrophy. Moderate/severe spinal stenosis. Moderate bilateral foraminal narrowing, greater on the left. L4-5: Grade 1 anterolisthesis with uncovering of the posterior disc. Posterior disc bulge. Moderate bilateral facet arthrosis. Mild spinal stenosis. Mild/moderate bilateral foraminal narrowing. L5-S1: Small posterior disc bulge. Moderate bilateral facet arthrosis. No significant spinal stenosis or foraminal narrowing. MRI/Spine Lumbar (Routine) IMPRESSION: 1. Acquired moderate/severe spinal stenosis and moderate bilateral foraminal na rrowing at L3-4. 2. Posterior fusion hardware at L4-5. 3. Grade 1 anterolisthesis of L3-4 and L4-5. Reading Location: [facility]
== END | disposition home or self-care (01) ==
LOC: MRI 10:20
PROVIDERS: PCP Nurse Practitioner Family; Referring Provider Student in an Organized Health Care Education/Training Program; Visit Provider Student in an Organized Health Care Education/Training Program
DX: M43.16 Spondylolisthesis, lumbar region (principal); Z98.1 Arthrodesis status; M51.369 Other intervertebral disc degeneration, lumbar region without mention of lumbar back pain or lower extremity pain
CPT/HCPCS: 72148

== ENCOUNTER → 2024-12-18 | Outpatient (CLI) | payer MEDICARE, MEDICAID, SELFPAY ==
--- NOTE | 2024-12-18 14:02 | BD_ITS ---
PROCEDURE: DEXA BONE DENSITY STUDY 12/18/2024 REASON FOR EXAM: F, age 69 y/o . Postmenopausal. TECHNIQUE: DXA scan of the lumbar spine and right hip, using make and model. REFERENCE LINKS: ISCD Adult Positions COMPARISON: Comparison is made with prior study dated February 17, 2023. FINDINGS: BMD and T-SCORES Lumbar spine: 0.871 g/cm2, T-Score -2.2 L1 through L4 Change from prior: Improvement by 3% Right femoral neck: 0.712 g/cm2, T-Score -1.7 Femoral neck comparison data not recommended for monitoring change. Right total hip: 0.813 g/cm2, T-Score -1.4 Change from prior: Loss of 0.3% Fracture Risk Calculation: FRAX (10-year Fracture Risk) Score: FRAX scores should never be reported in a patient with osteoporosis on DEXA or for any patient that is on bone medication. The patient doesmeet the pharmacological treatment recommendations for prevention of osteoporosis BD/Dexa Bone Density Study IMPRESSION: OSTEOPENIA. Recommend follow-up as clinically warranted. Reading Location: [place] [id number]
== END | disposition home or self-care (01) ==
PROVIDERS: PCP Nurse Practitioner Family
DX: M81.0 Age-related osteoporosis without current pathological fracture (principal); M06.9 Rheumatoid arthritis, unspecified
CPT/HCPCS: 77080

== ENCOUNTER 2024-12-29 13:54 | Emergency (ER) | payer MEDICARE, MEDICAID, SELFPAY ==
[2024-12-29 13:55] VITALS: BP 169/100; PULSE 54; RESP 14; TEMP 35.8; O2SAT 99; BMI 26.3
--- NOTE | 2024-12-29 14:47 | CT_ITS ---
PROCEDURE: CTA HEAD AND NECK W/ CONTRAST 12/29/2024 REASON FOR EXAM: LEFT EYE VISION CHANGE TECHNIQUE: CTA imaging of the head and neck from the aortic arch to the skull vertex with out constrast and with intravenous contrast. Multiplanar and multisequence images were obtained. 3D post processing with reformations, Maximum intensity projection (MIPs) Volume rendering and Shaded surface rendering was provided. CONTRAST: Omnipaque 350 VOLUME: 100 mL Not Provided Gauge IV One or more dose reduction techniques were used (e.g., Automated exposure control, adjustment of the mA and/or kV according to patient size, use of iterative reconstruction technique). COMPARISON: None FINDINGS: Aortic Arch: Three-vessel arch branch anatomy. Mild atherosclerotic calcification of the proximal brachiocephalic arteries, without hemodynamically significant stenosis. Brachiocephalic and Subclavians: Mild atherosclerotic plaque without significant stenosis. RIGHT Carotid: Right CCA: Unremarkable. Right ICA: Unremarkable. Maximum stenosis (NASCET): 0 % Right ECA: Unremarkable. LEFT Carotid: Left CCA: Unremarkable. Left ICA: Mild calcified and soft plaque. Maximum stenosis (NASCET): 0 % Left ECA: Unremarkable. Vertebrals: Codominant. Arise from the subclavians. Both vertebrals form the basilar. RIGHT Vertebral: Unremarkable. LEFT Vertebral: Unremarkable. Anatomy: [place] anatomy is normal. Aneurysm or avm: No intracranial aneurysms or large vascular malformations are identified. Anterior cerebral arteries: Unremarkable: Middle cerebral arteries: Unremarkable. Basilar artery: Unremarkable. Posterior cerebral arteries: Unremarkable. Other major branches of the posterior circulation: Unremarkable. Major venous structures: Unremarkable. Other findings: Neck: No suspicious mass within the neck. Lungs: Lung apices are clear. Bones: Degenerative changes of the cervical and imaged thoracic spine. CT/CTA Head AND Neck W/ Contrast IMPRESSION: Patent anterior and posterior intracranial and extracranial circulation, withou t hemodynamically significant stenosis. Reading Location: [facility]
--- NOTE | 2024-12-29 14:50 | EX.ED.DYSGE1 ---
HPI <SIDNEY Dinero - Last Filed: 12/29/24 16:44> History of Present Illness Chief Complaint: Hypertension Narrative Narrative: Patient is a 69-year-old female with history of chronic back pain, hypertension. 2 to 3 days ago, the patient had her blood pressure medications changed. She is now amlodipine 10 mg at night, valsartan 320 mg at night and propranolol 40 mg twice a day. Patient states this morning, she said she felt off meaning she had a headache, she also noticed some vision changes to her left eye. She took her medications as prescribed. Patient went to the urgent care and was then sent here. Patient states she feels somewhat better however she is still has some blurred vision to her left eye. [facility] <SIDNEY Dinero - Last Filed: 12/29/24 16:44> [facility] Medical History (Updated 12/29/24 @ 16:44 by SIDNEY Dineor) Impingement of right shoulder Primary osteoarthritis, right shoulder Right shoulder pain Vapes nicotine containing substance Osteoarthritis Lumbar radiculopathy Impacted cerumen of both ears Wears glasses High cholesterol Former smoker Hypertension History of echocardiogram History of stress test Cardiology follow-up encounter Vitamin deficiency Chronic constipation Borderline type 2 diabetes mellitus Alcohol use disorder in remission Depression, unspecified ADHD Heat intolerance Osteopenia with high risk of fracture Smoking greater than 40 pack years Tremor Nicotine dependence, cigarettes, uncomplicated Insomnia CARBAJAL (dyspnea on exertion) Shortness of breath Abnormal EKG AA (alcohol abuse) COVID-19 vaccine series completed Essential hypertension Acute low back pain ADD (attention deficit disorder) Back pain Jaw swelling Low back pain due to bilateral sciatica Tobacco use disorder, continuous Encounter for screening for malignant neoplasm of lung in current smoker with 30 pack year history or greater Post-menopausal Eosinophilia Abnormal bruising Hay fever Fatigue Spinal cord stimulator status Overweight GERD (gastroesophageal reflux disease) Rheumatoid arthritis Primary osteoarthritis of left hip Vitamin D deficiency Anxiety and depression Rheumatoid arthritis Neuropathy Hyperlipemia Chronic bronchitis Cataracts, bilateral Asthma History of alcohol abuse Seasonal allergies Unilateral primary osteoarthritis, right hip Spondylosis of 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 myelopathy or radiculopathy Spinal stenosis of lumbosacral region Radiculopathy of lumbosacral region Degeneration, intervertebral disc, lumbosacral Home Medications ?Medication ?Instructions ?Recorded ?Last Taken ?Type blood pressure monitor (Blood #1 ea 09/30/20 Unknown Rx Pressure Kit) linaclotide 72 mcg capsule See Rx Instructions .Route 10/07/22 Unknown Rx .COMPLEX 3 months #90 caps calcium 600 mg (as 1 cap PO DAILY 10/27/22 Unknown History carbonate)-vitamin D3 10 mcg (400 unit) capsule omeprazole 40 mg capsule,delayed 40 mg PO DAILY #90 caps 12/15/22 02/28/23 09:30 Rx release albuterol sulfate 90 mcg/actuation 2 puff inhalation Q6H PRN 02/23/23 Unknown Rx aerosol inhaler (ProAir HFA) shortness of breath or wheezing #8.5 grams Handicap Placard #1 ea 07/26/23 Unknown Rx leflunomide 20 mg tablet 20 mg PO DAILY #90 tabs 08/11/23 Unknown Rx amlodipine 10 mg tablet 10 mg PO DAILY #90 tabs 09/13/23 Unknown Rx semaglutide 1 mg/dose (4 mg/3 mL) 1 mg subcut QWEEK 04/01/24 11/12/24 History subcutaneous pen injector furosemide 20 mg tablet 20 mg PO QAM #30 tabs 09/16/24 Unknown Rx meloxicam 7.5 mg tablet 7.5 mg PO BID PRN pain #60 tabs 09/16/24 Unknown Rx potassium chloride 10 mEq 10 meq PO QDAY #30 tabs 09/16/24 Unknown Rx tablet,extended release tizanidine 4 mg tablet See Rx Instructions PO QHS PRN 09/16/24 Unknown Rx muscle spasticity/muscle pain/insomnia #180 tabs prednisone 5 mg tablet 10 mg PO PRN PRN PAIN 10/21/24 Unknown History 3 mL syringe with 1 inch 25-gauge #6 ea 10/24/24 Unknown Rx needle cyanocobalamin 1,500 mcg IM MONTHLY #2 vials 10/24/24 Unknown Rx acyclovir 400 mg tablet 400 mg PO MOWEFR 11/12/24 Unknown History alendronate 70 mg tablet 70 mg PO QWEEK 11/12/24 Unknown History brexpiprazole 1 mg tablet (Rexulti) 1 mg PO DAILY 11/12/24 Unknown History desvenlafaxine 100 mg 100 mg PO DAILY 11/12/24 Unknown History tablet,extended release 24 hr methylphenidate HCl 30 mg biphasic 60 mg PO BID 11/12/24 Unknown History 50-50 capsule,extended release perfluorohexyloctane (PF) 100 % 1 drp ophthalmic (eye) Q6H 11/12/24 Unknown History eye drops (Miebo (PF)) Symbicort 160 mcg-4.5 2 inh inhalation BID #10.2 grams 12/18/24 Unknown Rx mcg/actuation HFA aerosol inhaler (budesonide-formoterol) methylphenidate HCl 20 mg tablet 20 mg PO QDAY 12/19/24 Unknown History pregabalin 150 mg capsule 150 mg PO TID 12/19/24 Unknown History propranolol 40 mg tablet 40 mg PO BID 12/29/24 Unknown History valsartan 320 mg tablet 320 mg PO DAILY 12/29/24 Unknown History Allergy/AdvReac Type Severity Reaction Status Date / Time Penicillins Allergy Mild Hives Verified 12/29/24 13:57 adhesive tape AdvReac Severe Rash, Verified 12/29/24 13:57 itchy, raw acetaminophen (From Percocet) AdvReac Intermediate insomnia Verified 12/29/24 13:57 oxycodone (From Percocet) AdvReac Intermediate insomnia Verified 12/29/24 13:57 benzonatate (From Tessalon AdvReac Mild Itching Verified 12/29/24 13:57 Perles) Family History Brother CAD (coronary artery disease), Onset Age: 70 CABG Other Alcoholism Arthritis Asthma Heart disease Hyperlipemia Hypertension Surgical History Hx of colonoscopy Hx of colonoscopy Status post left foot surgery Hx of shoulder surgery History of hysterectomy History of foot surgery History of back surgery Status post trigger finger release History of carpal tunnel surgery History of rotator cuff surgery Social History Smoking Status: Current every day smoker tobacco type: e-cigarettes Tobacco: How many years used: 40 Electronic Cigarette Use: with nicotine second hand exposure: Yes quit status: considering quitting alcohol intake: former substance use type: does not use what type of physical activity do you participate in: walking ROS <SIDNEY Dinero - Last Filed: 12/29/24 16:44> ROS ED ROS Narrative Constitutional: Negative for fever, chills, weight loss, weakness Eyes: Negative for vision loss, vision change, double vision. Complains of left-sided eye blurriness ENT: Negative for any sore throat, ear pain, congestion Cardiovascular: Negative for any chest pain, tightness, palpitations Respiratory: Negative for any cough, sputum production, hemoptysis, dyspnea, dyspnea on exertion, orthopnea Gastrointestinal: Negative for any abdominal pain, nausea, vomiting, diarrhea, constipation, blood in stool, blood in vomit : Negative for any urinary frequency, dysuria, retention, blood in urine Muscle skeletal: Negative for any neck pain, back pain Neurological: Negative for any headache, syncope, dizziness Skin: Negative for any rashes, itching, abrasions, lacerations Psychiatric: Negative for any depression, anxiety, stress, suicidal ideation, homicidal ideation Hematologic: Negative for any excessive bruising, easy bleeding EXAM <SIDNEY Dinero - Last Filed: 12/29/24 16:44> Physical Exam Narrative Exam Narrative: Vital signs reviewed. Patient's blood pressure was 165/86. HEET: Head normocephalic atraumatic, TMs clear bilaterally. Posterior pharynx is clear, moist mucous membranes. Nares clear bilaterally. Pupils are equal round reactive to light. There is no field vision loss. Neck: Supple with no lymphadenopathy or tenderness. No signs of meningismus. Cardiac: Regular rate and rhythm no murmurs gallops or rubs, equal peripheral pulses bilaterally. Respiratory: Lungs clear to auscultation bilaterally. No chest tenderness. Abdomen: Soft, nontender, nondistended. No abdominal bruit or pulsatile masses. No hepatosplenomegaly Extremities: No peripheral edema, no signs of gross trauma or deformity. Active full range of motion of all extremities. Neuro: Cranial nerves II through XII intact, no focal neurological deficits. NIH stroke scale 0 Skin: Clean dry and intact with no rash, purpura, petechiae, vesicles or pustules. Backs/flank: No CVA tenderness, no midline spinal tenderness, no deformity. Psych: Normal mood and affect. No SI, HI or acute psychosis. Const Vital Signs: 12/29/24 13:55 12/29/24 14:47 12/29/24 15:33 Temperature 96.5 F L Temperature Source Temporal Pulse Rate 54 L 53 L Respiratory Rate 14 18 Respiratory Effort Normal Non-Labored Respiratory Pattern Normal Blood Pressure 169/100 H 165/86 H Blood Pressure Mean 123 112 Pulse Ox 99 Positive well nourished and well developed General Appearance ED: well developed <Dr. Estephania Reagan DO - Last Filed: 01/02/25 14:15> Physical Exam Const Vital Signs: 12/29/24 13:55 12/29/24 14:47 12/29/24 15:33 Temperature 96.5 F L Temperature Source Temporal Pulse Rate 54 L 53 L Respiratory Rate 14 18 Respiratory Effort Normal Non-Labored Respiratory Pattern Normal Blood Pressure 169/100 H 165/86 H Blood Pressure Mean 123 112 Pulse Ox 99 MDM <Chi CasonRAFAT urbinaC - Last Filed: 12/29/24 16:44> MDM Lab Data Labs: Laboratory Results - last 24 hr 12/29/24 15:00 WBC 6.5 RBC 4.85 Hgb 14.4 Hct 45.2 MCV 93.2 MCH 29.7 MCHC 31.9 L RDW Std Deviation 45.3 H RDW Coeff of Chris 13.4 Plt Count 230 MPV 10.8 Immature Gran % (Auto) 0.200 Neut % (Auto) 52.4 Lymph % (Auto) 26.5 [place] % (Auto) 8.8 Eos % (Auto) 10.6 H Baso % (Auto) 1.5 H Absolute Neuts (auto) 3.4 Absolute Lymphs (auto) 1.72 Nucleated RBC % 0 Sodium 142 Potassium 4.0 Chloride 102 Carbon Dioxide 28.3 Anion Gap 12 BUN 18 Creatinine 1.00 Estim Creat Clear Calc 41.45 L Est GFR (MDRD) Non-Af 61 BUN/Creatinine Ratio 17.5 Glucose 100 H Calcium 10.4 Radiography Diagnostic Testing: Clinical Impression(s) from Imaging Studies Head/Neck CTA 12/29/24 14:47 IMPRESSION: Patent anterior and posterior intracranial and extracranial circulation, without hemodynamically significant stenosis. Reading Location: [facility] Treatment and Re-Evaluation :: Differential diagnosis includes however is not limited to: Hypertensive urgency, hypertensive emergency, retinal artery occlusion, anxiety, CVA Patient's blood pressure was 185/86 at this time. Presenting to the emergency department for elevated blood pressure, headache, as well as some left eye blurriness. Patient will receive basic laboratory values as well as CTA of the head and neck. All radiologic examinations were read, reviewed by the emergency department attending. From these reads, a plan of care will be put in place. Patient CBC was unremarkable, chemistries were unremarkable. Patient's CTA of the head and neck shows patent anterior and posterior intracranial and extracranial circulation without hemodynamically significant stenosis. At this time, patient blood pressure remains 165/80. I do believe the patient is stable for discharge. There is no acute CVA, TIA. Patient is agreeable, patient stable for discharge <Dr. Estephania Reagan, DO - Last Filed: 01/02/25 14:15> [facility] Lab Data Attestation: I reviewed the patient's lab results. Labs: Laboratory Results - last 24 hr 12/29/24 15:00 WBC 6.5 RBC 4.85 Hgb 14.4 Hct 45.2 MCV 93.2 MCH 29.7 MCHC 31.9 L RDW Std Deviation 45.3 H RDW Coeff of Chris 13.4 Plt Count 230 MPV 10.8 Immature Gran % (Auto) 0.200 Neut % (Auto) 52.4 Lymph % (Auto) 26.5 [place] % (Auto) 8.8 Eos % (Auto) 10.6 H Baso % (Auto) 1.5 H Absolute Neuts (auto) 3.4 Absolute Lymphs (auto) 1.72 Nucleated RBC % 0 Sodium 142 Potassium 4.0 Chloride 102 Carbon Dioxide 28.3 Anion Gap 12 BUN 18 Creatinine 1.00 Estim Creat Clear Calc 41.45 L Est GFR (MDRD) Non-Af 61 BUN/Creatinine Ratio 17.5 Glucose 100 H Calcium 10.4 Radiography Diagnostic Testing: Clinical Impression(s) from Imaging Studies Head/Neck CTA 12/29/24 14:47 IMPRESSION: Patent anterior and posterior intracranial and extracranial circulation, without hemodynamically significant stenosis. Reading Location: [facility] Treatment and Re-Evaluation :: Differential diagnosis includes however is not limited to: Hypertensive urgency, hypertensive emergency, retinal artery occlusion, anxiety, CVA Patient's blood pressure was 185/86 at this time. Presenting to the emergency department for elevated blood pressure, headache, as well as some left eye blurriness. Patient will receive basic laboratory values as well as CTA of the head and neck. All radiologic examinations were read, reviewed by the emergency department attending. From these reads, a plan of care will be put in place. Patient CBC was unremarkable, chemistries were unremarkable. Patient's CTA of the head and neck shows patent anterior and posterior intracranial and extracranial circulation without hemodynamically significant stenosis. At this time, patient blood pressure remains 165/80. I do believe the patient is stable for discharge. There is no acute CVA, TIA. Patient is agreeable, patient stable for discharge I have personally performed a face to face assessment of the patient and have reviewed the KODY Note. I performed a substantive portion of the visit including all aspects of the following. My rand findings include: History is Patient is a 69-year-old female with history of hypertension (recent medication adjustment) presenting with blurry vision which is more pronounced in the left eye as well as feeling off with some headache and head pressure. She checked her blood pressure at her home cuff and was elevated, went to the drugstore but was still elevated. She tried to go to urgent care but that was sent to the ER for further evaluation of this. She denies associated numbness or tingling. Denies any speech changes. Does note that she had prior cataract surgery and has monocular vision in each eye because of this. In the ER patient is hypertensive with initial blood pressure of 169/100 however her other vital signs are normal. Her NIH is 0 with no focal neurologic deficits. Given her report of vision change more pronounced in the left eye concern for possible retinal vein versus retinal artery occlusion. On ocular exam patient has EOMI/PERRL. Did attempt ophthalmic exam and she has relatively normal right macular exam however she does seem to have more flame hemorrhage/prominent vascularity of the left macula. I do not see pallor consistent with acute ischemia. Cranial nerves II through XII grossly intact. No drift of the extremities. Normal sensation and coordination. Normal speech. Workup looking for signs of endorgan acute damage obtained and CT of the head and neck is obtained to make sure there is no significant retinal artery abnormality. Her workup is largely negative. Do recommend she follow-up with ophthalmology closely to make sure she is not going to have vision changes associated with her hypertension. As her blood pressure is only mildly elevated I do not think this is a hypertensive emergency and do not think she requires admission for hypertension control/hypertensive urgency. Will continue to titrate medications at home with PCP. While in the ER she notes her symptoms have relatively resolved. Other additions or changes: [None] Discharge Plan Triage Chief Complaint: Hypertension ED Midlevel Provider: Chi Gifford ED Provider: Estephania Reagan Dx/Rx/DC Orders Clinical Impression: Essential hypertension, Vision changes Instructions: Blood Pressure Check Steps, ED High Blood Pressure Hypertension Prescriptions: No Action (DME) blood pressure monitor [Blood Pressure Kit] Kit See Rx Instructions .ROUTE .MEDSUPPLY Qty: 1 0RF Rx Instructions: Check blood pressure daily for hypertension I10 calcium carbonate-vitamin D3 600 mg-10 mcg (400 unit) capsule 1 cap PO DAILY albuterol sulfate [ProAir HFA] 90 mcg/actuation HFA aerosol inhaler 2 puff INHALATION Q6H PRN (Reason: shortness of breath or wheezing) Qty: 8.5 3RF semaglutide 1 mg/dose (4 mg/3 mL) pen injector 1 mg subcut QWEEK Patient Comments: TAKES ON MONDAY, LAST 11/12/2024 TAKES FOR WEIGHT LOSS (DME) Handicap Placard See Rx Instructions .ROUTE .MEDSUPPLY Qty: 1 0RF Rx Instructions: As directed, length of time 3 years furosemide 20 mg tablet 20 mg PO QAM Qty: 30 5RF tizanidine 4 mg tablet See Rx Instructions PO QHS PRN (Reason: muscle spasticity/muscle pain/insomnia) Qty: 180 1RF Rx Instructions: Take 1 to 2 tablets orally at bedtime PRN meloxicam 7.5 mg tablet 7.5 mg PO BID PRN (Reason: pain) Qty: 60 5RF potassium chloride 10 mEq tablet extended release 10 meq PO QDAY Qty: 30 5RF cyanocobalamin 1,000 mcg/mL 1,500 mcg IM MONTHLY Qty: 2 6RF Rx Instructions: Dispense two 1 mL vials monthly. (DME) 3 mL syringe with 1 inch 25-gauge needle See Rx Instructions .Route .MEDSUPPLY Qty: 6 0RF Rx Instructions: As directed prednisone 5 mg tablet 10 mg PO PRN PRN (Reason: PAIN) methylphenidate HCl 20 mg tablet 20 mg PO QDAY pregabalin 150 mg capsule 150 mg PO TID acyclovir 400 mg tablet 400 mg PO MOWEFR Patient Comments: MWF alendronate 70 mg tablet 70 mg PO QWEEK methylphenidate HCl 30 mg capsule,ER biphasic 50-50 60 mg PO BID desvenlafaxine 100 mg tablet extended release 24 hr 100 mg PO DAILY Rexulti 1 mg tablet 1 mg PO DAILY Miebo (PF) 100 % drops 1 drp ophthalmic (eye) Q6H Patient Comments: [NO ORIGINAL SIG] propranolol 40 mg tablet 40 mg PO BID valsartan 320 mg tablet 320 mg PO DAILY linaclotide 72 mcg capsule See Rx Instructions .ROUTE .COMPLEX 90 Days Qty: 90 3RF Dose Instruction: Take 1 capsule by mouth once daily Rx Instructions: Take 1 capsule by mouth once daily omeprazole 40 mg capsule,delayed release(DR/EC) 40 mg PO DAILY Qty: 90 3RF leflunomide 20 mg tablet 20 mg PO DAILY Qty: 90 3RF amlodipine 10 mg tablet 10 mg PO DAILY Qty: 90 3RF budesonide-formoterol [Symbicort] 160-4.5 mcg/actuation HFA aerosol inhaler 2 inh inhalation BID Qty: 10.2 11RF Rx Instructions: administer with spacer, rinse mouth after each use Primary Care Provider: Kvng Orellana Referrals: Kvng Orellana, [facility] [Primary Care Provider] - Activity Restrictions/Additional Instructions: Please continue to follow-up with your PCP. You had a negative workup today. Print Language: Divehi Disposition Disposition: Home, Self Care Discharge Date/Time: 12/29/24 16:59
[2024-12-29 15:11] LABS: Absolute Lymphocyte Count 1.72 X10^3/uL (0.83-4.51); Absolute Neutrophil Count 3.4 X10^3/uL (2.0-7.7); Basophil% 1.5 % (0-1); Eosinophil# 0.69 X10^3/uL; Eosinophils% 10.6 % (0-5); Hematocrit 45.2 % (37-47); Hemoglobin 14.4 g/dL (12.0-15.0); Lymphocyte # 1.72 X10^3/ul (0.83-4.51); Lymphocyte % 26.5 % (19-41); Mean Corp Hgb Conc 31.9 g/dL (32-36); Mean Corpuscular Hgb 29.7 pg (27.0-32.0); Mean Corpuscular Volume 93.2 fL (81-99); Mean Platelet Vol. 10.8 fl (6.2-12.0); Monocyte# 0.57 X10^3/uL; Monocyte% 8.8 % (0-10); NRBC Flagged by Analyzer 0 % (0-5); Neutrophil % 52.4 % (47-70); Platelet Count 230 K/mm3 (150-450); RBC Distribution Width CV 13.4 % (11.6-14.6); RBC Distribution Width SD 45.3 fl (35.1-43.9); Red Blood Count 4.85 M/mm3 (4.2-5.4); White Blood Count 6.5 K/mm3 (4.4-11.0)
[2024-12-29 15:27] LABS: Anion Gap 12 (5-15); BUN 18 mg/dL (4-19); BUN/Creat Ratio 17.5 RATIO (10-20); Calcium,Total 10.4 mg/dL (7.6-11.0); Carbon Dioxide 28.3 mmol/L (21.0-32.0); Chloride 102 mmol/L (98-108); EST Glomerular Filtration Rate 61 (>60); Estimated Creatinine Clearance 41.45 ml/min (50-250); Glucose 100 mg/dL (70-99); Sodium Level 142 mmol/L (133-145)
[2024-12-29 15:33] VITALS: BP 165/86; PULSE 53; RESP 18
[2024-12-29 16:58] VITALS: BP 156/102; PULSE 76; RESP 18; TEMP 36.7; O2SAT 100
== END 2024-12-29 16:59 | disposition home or self-care (01) ==
PROVIDERS: Nurse Practitioner; Emergency Provider Emergency Medicine; PCP Nurse Practitioner Family; Visit Provider Emergency Medicine
DX: I10 Essential (primary) hypertension (principal); G89.29 Other chronic pain; E78.00 Pure hypercholesterolemia, unspecified; M54.9 Dorsalgia, unspecified; H53.9 Unspecified visual disturbance; Z90.710 Acquired absence of both cervix and uterus; F17.290 Nicotine dependence, other tobacco product, uncomplicated
CPT/HCPCS: 70496; 70498; 80048; 85025; 99282; Q9967; A4216

== ENCOUNTER → 2025-01-01 | Outpatient (CLI) | payer MEDICARE, MEDICAID, SELFPAY ==
[2025-01-01 12:47] LABS: Erythrocyte Sedimentation Rate 4 mm/hr (0-30)
[2025-01-01 13:32] LABS: CRP < 3.00 mg/L (0.0-3.0)
== END | disposition home or self-care (01) ==
LOC: MTLAB 10:48
PROVIDERS: PCP Nurse Practitioner Family; Referring Provider Ophthalmology; Visit Provider Ophthalmology
DX: H53.10 Unspecified subjective visual disturbances (principal)
CPT/HCPCS: 36415; 85652; 86140

== ENCOUNTER → 2025-01-07 | Outpatient (CLI) | payer MEDICARE, MEDICAID, SELFPAY ==
[2025-01-07 16:59] LABS: Anion Gap 11 (5-15); BUN 20 mg/dL (4-19); BUN/Creat Ratio 21.3 RATIO (10-20); Calcium,Total 9.9 mg/dL (7.6-11.0); Carbon Dioxide 27.7 mmol/L (21.0-32.0); Chloride 103 mmol/L (98-108); Creatinine, Serum 0.92 mg/dL (0.70-1.20); EST Glomerular Filtration Rate 67 (>60); Glucose 92 mg/dL (70-99); Sodium Level 141 mmol/L (133-145)
== END | disposition home or self-care (01) ==
LOC: VSLAB 15:28
PROVIDERS: PCP Nurse Practitioner Family
DX: I10 Essential (primary) hypertension (principal)
CPT/HCPCS: 36415; 80048

== ENCOUNTER → 2025-01-14 | Outpatient (CLI) | payer MEDICARE, MEDICAID, SELFPAY ==
[2025-01-18 17:08] LABS: Vitamin D 1,25-Dihydroxy 25.9 pg/mL (24.8-81.5)
== END | disposition home or self-care (01) ==
LOC: MTLAB 14:06
PROVIDERS: PCP Nurse Practitioner Family; Referring Provider Psychiatry & Neurology Neurology; Visit Provider Psychiatry & Neurology Neurology
DX: M85.80 Other specified disorders of bone density and structure, unspecified site (principal)
CPT/HCPCS: 36415; 82652

== ENCOUNTER → 2025-01-15 | Outpatient (CLI) | payer MEDICARE, MEDICAID, SELFPAY ==
--- NOTE | 2025-01-15 12:39 | MRI_ITS ---
PROCEDURE: UPPER EXT JOINT ONLY(ROUTINE) 01/15/2025 REASON FOR EXAM: PAIN, RULE OUT CUFF TEAR Right shoulder pain. Decreased range of motion right shoulder. TECHNIQUE: MRI of the right shoulder/right upper Extremity. Multiplanar and multisequence images were obtained without IV contrast administration. COMPARISON: COMPARISON : Right shoulder x-rays 11/19/2024 FINDINGS: Bone Marrow: No acute fracture or osseous contusion. Subchondral cysts within the humeral head. Metallic susceptibility artifact within the right humeral head consistent with postsurgical change. Partial postsurgical resection of the lateral clavicle. Rotator cuff: Mild supraspinatus tendinitis. Supraspinatus tendon appears intact. Infra spinatus tendon, teres minor tendon and subscapularis tendon appear intact. No rotator cuff tear. Biceps: Bicipital groove appears empty, either due to chronic long head biceps tendon tear or surgical tenotomy. Short head biceps tendon appears intact. Labrum: Evaluation of labrum is limited due to lack of intra-articular contrast with labrum grossly appearing intact for a non arthrogram examination. Musculature: No significant muscular atrophy. Joint space: No significant glenohumeral joint effusion. Mild glenohumeral osteoarthritis. Additional: Mild subacromial and subdeltoid bursitis. MRI/Upper Ext Joint Only(Routine) IMPRESSION: 1. Mild supraspinatus tendinitis. No rotator cuff tear. 2. postsurgical change of prior rotator cuff repair and partial resection of l ateral clavicle. No evidence of recurrent rotator cuff tear. 3. Mild glenohumeral osteoarthritis. 4. Mild subacromial and subdeltoid bursitis. Reading Location[facility]
== END | disposition home or self-care (01) ==
LOC: MRI 12:31
PROVIDERS: PCP Nurse Practitioner Family; Referring Provider Orthopaedic Surgery Sports Medicine; Visit Provider Orthopaedic Surgery Sports Medicine
DX: M25.511 Pain in right shoulder (principal)
CPT/HCPCS: 73221

== ENCOUNTER → 2025-01-24 | Outpatient (CLI) | payer MEDICARE, MEDICAID, SELFPAY ==
--- NOTE | 2025-01-24 08:53 | RDU_ITS ---
Reason For Study Reason For Study: HTN Right Renal Artery Left Renal Artery Right renal artery ostium 75.4/11.7 Left renal artery ostium 57.2/16.7 RSV/EDV. PSV/EDV. Right renal artery proximal 118.0/35.8 Left renal artery proximal PSV/EDV PSV/EDV. 99.7/32.2 . Right renal artery mid 97.8/30.5 PSV/EDV. Left renal artery mid 67.3/20.2 PSV/EDV . Right renal artery distal 95.9/21.9 Left renal artery distal 29.2/6.0 PSV/EDV. PSV/EDV. Right RAR 1.7. Left RAR 1.4. Right Renal Parenchyma Left Renal Parenchyma Upper Pole Medula 13.4/3.1 PSV/EDV. Left upper pole medulla 24.5/7.5 Right upper pole medulla EDR 0.2 . PSV/EDV . Right upper pole medulla R.I. 0.77 . Left upper pole medulla EDR 0.3 . Upper Chuck Cortx 15.5/5.1 PSV/EDV. Left upper pole medulla R.I. 0.70 . Right upper pole cortex EDR 0.3 . UP Cortex 12.5/3.8 PSV/EDV. Right upper pole cortex R.I. 0.67 . Left upper pole cortex EDR 0.3 . Right lower Pole medulla 11.0/4.2 Left upper pole cortex R.I. 0.70 . PSV/EDV . Left lower Pole medulla 23.4/8.1 Right lower pole medulla EDR 0.4 . PSV/EDV . Right lower pole medulla R.I. 0.62 . Left lower pole medulla EDR 0.3 . Lower Pole Cortex 15.3/3.2 PSV/EDV. Left lower pole medulla R.I. 0.65 . Right lower pole cortex EDR 0.2 . Lower Pole Cortx 16.0/3.8 PSV/EDV. Right lower pole cortex R.I. 0.79 . Left lower pole cortex EDR 0.2 . Right Renal Hilar Left lower pole cortex R.I. 0.77 . Right Hilar avg 52.8/12.2 PSV/EDV. Left Renal Hilar Right hilar acceleration time 60 m/sec. LT Hilar avg 35.3/8.8 PSV/EDV . Right Renal Dimensions Left hilar acceleration time 50 m/sec. Right kidney size 9.45 cm . Left Renal Dimensions Right cortical dimension 1.23 cm . Left kidney size 10.06 cm . Left cortical dimension 1.17 cm . Aorta Proximal abdominal aorta 1.64x2.03 cm . Proximal abdominal aorta peak systolic velocity is 66.0 cm/sec . Distal abdominal aorta 1.39x1.63 cm . Distal abdominal aorta peak systolic velocity is 71.4 cm/sec . VL/Renal Artery Duplex Ultrasound Interpretation Summary Right renal artery patent with normal velocities and no evidence of stenosis. Left renal artery patent with normal velocities and no evidence of stenosis. Right renal vein patent. Left renal vein patent. Right kidney normal in size. Left kidney normal in size. Ordering Physician: Eric Escobedo Referring Physician: Eric Escobedo Performed By: Suyapa Martinez RVT
== END | disposition home or self-care (01) ==
PROVIDERS: PCP Nurse Practitioner Family
DX: I10 Essential (primary) hypertension (principal)
CPT/HCPCS: 93975

== ENCOUNTER → 2025-01-30 | Outpatient (CLI) | payer MEDICARE, MEDICAID, SELFPAY ==
--- NOTE | 2025-01-30 14:38 | CT_ITS ---
EXAM: CT Chest, Lung Cancer Screening Without Intravenous Contrast CLINICAL INDICATION: SMOKING TECHNIQUE: Axial computed tomography images of the chest without intravenous contrast using low dose (LCT) lung cancer screening protocol. This CT exam was performed using one or more of the following dose reduction techniques: automated exposure control, adjustment of the mA and/or kV according to patient size, and/or use of iterative reconstruction technique. COMPARISON: CT Lung Cancer Screening dated 01/22/2024 FINDINGS: LUNGS AND PLEURAL SPACES: Mild lung emphysema. No new suspicious pulmonary nodules. No consolidation. No significant effusion. No pneumothorax. HEART: Unremarkable. No cardiomegaly. No significant pericardial effusion. No significant coronary artery calcifications. BONES/JOINTS: Unremarkable. No acute fracture. SOFT TISSUES: Unremarkable. VASCULATURE: Unremarkable. No thoracic aortic aneurysm. LYMPH NODES: Unremarkable. No enlarged lymph nodes. CT/Low Dose CT Lung Screening IMPRESSION: 1. Mild lung emphysema. No new suspicious pulmonary nodules. 2. LUNG-RADS 1: Continue low-dose CT screening of the chest in 12 months is re commended. Reading Location: [id number]
== END | disposition home or self-care (01) ==
LOC: CT 14:35
PROVIDERS: PCP Nurse Practitioner Family; Referring Provider Nurse Practitioner Acute Care; Visit Provider Nurse Practitioner Acute Care
DX: Z12.2 Encounter for screening for malignant neoplasm of respiratory organs (principal); F17.210 Nicotine dependence, cigarettes, uncomplicated
CPT/HCPCS: 71271

== ENCOUNTER → 2025-02-06 | Outpatient (CLI) | payer MEDICARE, MEDICAID, SELFPAY ==
[2025-02-06 14:06] LABS: Anion Gap 11 (5-15); BUN 28 mg/dL (4-19); BUN/Creat Ratio 30.1 RATIO (10-20); Carbon Dioxide 27.2 mmol/L (21.0-32.0); Chloride 103 mmol/L (98-108); Creatinine, Serum 0.94 mg/dL (0.70-1.20); EST Glomerular Filtration Rate 65 (>60); Glucose 103 mg/dL (70-99); Potassium 4.5 mmol/L (3.3-5.1); Sodium Level 141 mmol/L (133-145)
== END | disposition home or self-care (01) ==
LOC: VSLAB 10:08
PROVIDERS: PCP Nurse Practitioner Family; Visit Provider Nurse Practitioner Family
DX: I10 Essential (primary) hypertension (principal)
CPT/HCPCS: 36415; 80048

== ENCOUNTER 2025-02-11 15:00 | Outpatient (RCR) | payer MEDICARE, MEDICAID, SELFPAY ==
--- NOTE | 2025-01-07 14:58 | HP.OTEVAL ---
Patient's Visit Information Visit Information Visit Information: LELE ABDUL is a 69 year old F, referred to Occupational Therapy by SIDNEY Young, with a diagnosis of left RF trigger finger. Date of Evaluation: 01/07/25 Occupational Therapist: Taya Mora, MARYA/Konstantin, CHT Subjective Subjective: This 69 year old female was seen for OT eval with dx of left trigger finger, swelling of left RF. Pt states she had sx on 11/26/24. pt states she had issues for about 2 months prior to seeing her drAba and decided she would have sx vs injections. Pt is right-handed states she has swelling and soreness that limits her with ADls and IADLs. 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 Pain left hand: Current Pain Intensity: 2 Pain Intensity Range: 3 ROM MP: right RF 0/80 left 0/80 PIP: right RF 0/100 left 0/100 DIP: right RF 0/50 left 0/45 ROM Comments: pt demo with full composite fist - Strength Multimedia Project Manager: right 65# left 25# Lateral Pinch: right 14# left 6# Tripod Pinch: right 6# left 8# Strength Comments: pt demo with limited left qa automation architect strength Edema PIP: right RF 6.2 left 6.5 Sensation Sensation Comments: denies Quick DASH-Disab of Arm,Shoulder& Hand Quick DASH Score: 4.5450 Goals Goal:Daily scar massage when approriate: Yes Goal:ROM equal to unaffected hand: Yes Goal:Multimedia Project Manager/Pinch strength at least 75% of unaffected hand: Yes Goal:No pain with affected hand use: Yes Goal:PIP Circumferences equal to unaffected hand: Yes Goal:Full use of affected hand in daily activities including work: Yes Goal:Decrease scar hypersensitivity: Yes Rehabilitation General Assessment: pt demo with scar sensitivity and hyper trophic scar, left digit edema and limited functional strength limiting pts with ADLs and IADLs. pt would benefit from skilled OT services 2x week for 4 weeks. Today therapist ed. pt on scar mobilization, AROM, AAROM to improve pts functional use of left hand. pt demo understanding and agree to POC. Rehabilitation Potential: Good Anticipated Interventions Anticipated Interventions: A/AAROM/PROM, Strengthening, Edema Control, Scar Care, Triggerpoint Release, Desensitization, Modalities, Fine Motor Coord/Gurdeep and Home Program Visit Plan Frequency: 1-2x /Week Duration: 4 Weeks General Plan: scar mobilization light strengthening TEXT: Thank you for the opportunity to evaluate your patient. For Medicare and Medicare HMO plans, please review the plan of care and approve it. It will need to be FAXED BACK to us at [phone] for Medicare purposes. Please let me know if there are questions or concerns regarding this plan of care. Physician Signature: Date:
--- NOTE | 2025-01-22 14:35 | HP.PTEVAL ---
Patient's Visit Information Visit Information Visit Information: LELE ABDUL is a 69 year old F referred to Physical Therapy by SIDNEY Yonug with a diagnosis of spinal stenosis. Date of Evaluation: 01/22/25 Physical Therapist: Jerald Vaca, DPT, OCS, CSCS Visit Plan Frequency: 3x /Week Duration: 4-6 Weeks Plan: 3x/week for 4-6 weeks for Aquatic therapy to work on pelvic adn lumbar ROM progression, core strength adn general strength and psaos streteching, work to I with pool or homee ex based on patient desire. Pt only had 25 min to spend with eval today due to other appointments. Subjective Subjective: LBp for years. Had back surgery 2017 fusion of L45. which helped and came for aquatic therapy. now it is worsening again. Now the disc above is deteriorating and may need to go in do another fusion. She does not want that and will get back injection Dr. Singh next Monday adn treated with injections every 3 motnhs since 2013. Pain is LB and down to buttocks and back of leg R>L. No numbness or tingling currently. Regualr exercises : No Basic ADLs dress, bathroom shower all I, lives alone with 10 steps that are no problem but painful. Not employed, spends day at doctor appointments, Gets around the house alot. Has to sit often. Pain LBP: Pain Intensity (Out of 10): 3 Pain Intensity Range: 2 and 9 Comment: worse standing and walking. Better with sitting in soft chair. Objective Objective: Walks hunched over into PT slow and labor, trasnfers slow and hard to stand up but I. Good balance. Virtually no pelvic movement with walking and walks stiff. Lumbar AROM ext max limited and painful, flexion mod limited, SB mod limtied. reflexes 0/3 patella and achilles B sensation in LE is WNl to gross light touch. strength LE knees and ankles 4-, hips 3/5 abd and ext. 3+ flexion. Painful to lie flat on back and tightness in quads and psoas. better with knees flexed. - slump and - SLR. Balance/Special Test Scores Oswestry Low Back Score: 20 Goals Goal 1:: I appropriate HEP to limit future problems with pain and motion Goal Time Frame: 4-6 Weeks Goal 2:: Pain in LB 3/10 at worst and 75% improved. Goal Time Frame: 4-6 Weeks Goal 3:: walk without immeediate increase in pain up tall without hunching without VC Goal Time Frame: 4-6 Weeks Goal 4:: Sleep without waking at night due to pain Goal Time Frame: 4-6 Weeks Goal 5:: 7 or b noe on oswestry Goal Time Frame: 4-6 Weeks Rehabilitation Potential Physical Therapy Diagnosis: limited ROM and pain effecting function. Rehabilitation Potential: Good Anticipated Interventions Patient/Client Instruction: Educate patient on: Condition and Plan of Care For the Purpose of:: To decrease pain, To increase ROM, To improve nutrient delivery to tissue, To improve muscle performance and motor function, To increase tolerance to activity/condition/position, To improve ability of physical actions for home/community/work/leisure and To improve gait and locomotor functions Therapeutic Exercise to Include: Strength training, Postural training, Flexibilty training, In an aquatic setting, Passive ROM and Active ROM For the Purpose of:: To decrease pain, To increase ROM, To improve nutrient delivery to tissue, To improve muscle performance and motor function, To increase tolerance to activity/condition/position, To improve ability of physical actions for home/community/work/leisure and To improve gait and locomotor functions Text: Thank you for the opportunity to evaluate your patient. For Medicare and Medicare HMO plans, please review the plan of care and approve it. It will need to be FAXED BACK to us at [phone] for Medicare purposes. For Medicare only, by signing this I certify the plan of care. Please let me know if there are questions or concerns regarding this plan of care. Physician Signature: Date:
--- NOTE | 2025-02-04 07:46 | HP.OTDCSUM ---
Discharge Summary D/C Summary: It has been my pleasure to treat LELE ABDUL under orders from Rachel Hidalgo NP-C, for the diagnosis of left RF trigger finger for a total of 6 visit(s). Please see the following information for a summary of their discharge status. Overall Improvement % Improvement: 100 Objective Objective/Function: -Pt is able to do all house hold tasks. Finger has not triggered in more than 3 weeks. No pain or tenderness, sensitivitiy in hand. Structural Architect: R: 75#, L:50# Tripod: R: 9#, L: 11# Lateral: R:9#, L:10# Goals Patient Goals: Regain Mobility, Regain Strength, Decrease Pain, Use Hand/Wrist/Arm Normally Again, Be More Independent in ADLS and Decrease Sensitivity Goal:Daily scar massage when approriate: Yes Goal Progress: Goal Met Goal:ROM equal to unaffected hand: Yes Goal Progress: Goal Met Goal:Structural Architect/Pinch strength at least 75% of unaffected hand: Yes Goal Progress: Goal Met Goal:No pain with affected hand use: Yes Goal Progress: Goal Met Goal:PIP Circumferences equal to unaffected hand: Yes Goal Progress: Goal Met Goal:Full use of affected hand in daily activities including work: Yes Goal:Decrease scar hypersensitivity: Yes Goal Progress: Goal Met Plan Plan: Chart to be D/liat. D/C Information Discharge Comments: pt has successfully met OT goals and is d/c at this time. d/c sentence: If there are questions or concerns regarding this patient's occupational therapy, please fell free to call me at [phone]. Thank you for the referral of this patient. Sincerely, Taya Mora, OTR/L, CHT
== END 2025-02-11 19:00 | disposition home or self-care (01) ==
LOC: PT 15:00
PROVIDERS: PCP Nurse Practitioner Family; Referring Provider Nurse Practitioner Family; Visit Provider Nurse Practitioner Family
DX: M65.342 Trigger finger, left ring finger (principal); M25.449 Effusion, unspecified hand
CPT/HCPCS: 97110; 97113; 97161; 97166; 97530

== ENCOUNTER → 2025-02-12 | Outpatient (CLI) | payer MEDICARE, MEDICAID, SELFPAY ==
[2025-02-12 12:30] VITALS: PULSE 62; PULSE 65; PULSE 67; PULSE 73; PULSE 77; PULSE 79; PULSE 80; O2SAT 95; O2SAT 96; O2SAT 98
--- NOTE | 2025-02-14 12:30 | PCM.PSN.6M ---
PSN 6 Minute Walk Test 6 Minute Walk Test 6 Minute Walk Test: 6 Minute Walk Test PSN:6-Minute Walk Test Start: 02/12/25 12:48 Freq: Status: Active Protocol: [id number] Document 02/12/25 12:30 [facility] (Rec: 02/12/25 12:53 [facility] [id number]) 6 Minute Walk Test Date Performed 02/12/25 Time Performed 12:30 Height 4 ft 10 in Weight: 130 lb Weight in Pounds 130.[address]: Rosemary Assistive device None used: Pre-test Oxygen Delivery Room Air Method Pulse Ox (%) 95 Pulse Rate (60-100 62 beats/min) Dyspnea Cristo Scale ( 0 0-10) Exertion Cristo Scale 6 (6-20) 1st minute Oxygen Delivery Room Air Method Pulse Ox (%) 98 Pulse Rate (60-100 67 beats/min) 2nd minute Oxygen Delivery Room Air Method Pulse Ox (%) 98 Pulse Rate (60-100 73 beats/min) 3rd minute Oxygen Delivery Room Air Method Pulse Ox (%) 96 Pulse Rate (60-100 79 beats/min) 4th minute Oxygen Delivery Room Air Method Pulse Ox (%) 95 Pulse Rate (60-100 77 beats/min) 5th minute Oxygen Delivery Room Air Method Pulse Ox (%) 98 Pulse Rate (60-100 80 beats/min) 6th minute Oxygen Delivery Room Air Method Pulse Ox (%) 96 Pulse Rate (60-100 79 beats/min) Dyspnea Cristo Scale ( 0.5 0-10) Exertion Cristo Scale 9 (6-20) Post-test Oxygen Delivery Room Air Method Pulse Ox (%) 98 Pulse Rate (60-100 65 beats/min) Full Laps Walked 16 Partial Lap, Number 0 of Tiles Walked Total Distance 944 Walked (ft) Interpretation Interpretation: The patient ambulated 944 feet over the course of 6 minutes beginning on room air without assistive devices. Pretesting oxygen saturation was noted to be 95% on room air. With ambulation, the ruth oxygen saturation was 95%. There was no significant oxygen desaturation. Recommendations Recommendations: There is no indication for the use of supplemental oxygen at this time.
== END | disposition home or self-care (01) ==
LOC: PSN 12:23
PROVIDERS: PCP Nurse Practitioner Family; Referring Provider Nurse Practitioner Acute Care; Visit Provider Nurse Practitioner Acute Care
DX: R06.02 Shortness of breath (principal)
CPT/HCPCS: 94618

== ENCOUNTER → 2025-02-21 | Outpatient (CLI) | payer MEDICARE, MEDICAID, SELFPAY ==
--- NOTE | 2025-02-21 18:27 | CT_ITS ---
PROCEDURE: SPINE LUMBAR WITHOUT CONTRAST 02/21/2025 REASON FOR EXAM: PAIN, PRIOR FUSION TECHNIQUE: SPINE LUMBAR WITHOUT CONTRAST Coronal and Sagittal reconstruction series were provided. One or more dose reduction techniques were used (e.g., Automated exposure control, adjustment of the mA and/or kV according to patient size, use of iterative reconstruction technique COMPARISON: Radiographs on 01/28/2025. RADIATION DOSE SUMMARY: CTDlvol: 12.4 mGy DLP: 394 mGycm FINDINGS: Spinal stimulator device is noted in good position. Grade 1 anterolisthesis of L3 on L4. Grade 1 anterolisthesis of L4 on L5. Grade 1 anterolisthesis of L5 on S1. Prior decompression and fusion with unremarkable transpedicular screws at L4-L5. Mild osteopenia. Mild S shaped degenerative scoliosis. Mildly exaggerated lumbar lordosis. Left jaz sacralization of L5. Normal vertebrae of the lumbar spine. L1-2: Mild diffuse disc bulge. Bilateral facet joint arthropathy and ligamentum flavum hypertrophy. The spinal canal is mildly narrowed. Mild bilateral neural foramina narrowing. L2-3: Mild diffuse disc bulge. Bilateral facet joint arthropathy and ligamentum flavum hypertrophy. The spinal canal is moderately narrowed. Mild bilateral neural foramina narrowing. L3-4: Moderate diffuse disc bulge. Bilateral facet joint arthropathy and ligamentum flavum hypertrophy. The spinal canal is moderately narrowed. Moderate bilateral neural foramina narrowing. L4-5: Mild diffuse disc bulge. Superimposed broad-based right foraminal disc protrusion measuring 4.5 mm. Bilateral facet joint arthropathy. The spinal canal is not narrowed. There is moderate right and mild left neural foramina narrowing. L5-S1: Moderate diffuse disc bulge. Superimposed broad-based right foraminal disc protrusion measuring 5.4 mm. Bilateral facet joint arthropathy and ligamentum flavum hypertrophy. The spinal canal is not narrowed. There is moderate right and mild left neural foramina narrowing. CT/Spine Lumbar without Contrast IMPRESSION: Spondylosis. Reading [facility] [id number]
== END | disposition home or self-care (01) ==
LOC: CT 18:23
PROVIDERS: PCP Nurse Practitioner Family; Referring Provider Student in an Organized Health Care Education/Training Program; Visit Provider Student in an Organized Health Care Education/Training Program
DX: M48.062 Spinal stenosis, lumbar region with neurogenic claudication (principal); Z98.1 Arthrodesis status; M51.369 Other intervertebral disc degeneration, lumbar region without mention of lumbar back pain or lower extremity pain; M43.16 Spondylolisthesis, lumbar region
CPT/HCPCS: 72131

== ENCOUNTER → 2025-02-24 | Outpatient (CLI) | payer MEDICARE, MEDICAID, SELFPAY | END | disposition home or self-care (01) | LOC: PSN 08:12 | PROVIDERS: PCP Nurse Practitioner Family; Referring Provider Nurse Practitioner Acute Care; Visit Provider Nurse Practitioner Acute Care | DX: R06.02 Shortness of breath (principal) | CPT/HCPCS: 94060; 94726; 94729 ==

== ENCOUNTER → 2025-02-25 | Outpatient (CLI) | payer MEDICARE, MEDICAID, SELFPAY ==
[2025-02-25 16:46] LABS: Absolute Lymphocyte Count 2.77 X10^3/uL (0.83-4.51); Absolute Neutrophil Count 3.4 X10^3/uL (2.0-7.7); Basophil# 0.09 X10^3/uL; Basophil% 1.2 % (0-1); Eosinophil# 0.65 X10^3/uL; Eosinophils% 8.6 % (0-5); Hematocrit 39.4 % (37-47); Hemoglobin 12.4 g/dL (12.0-15.0); Lymphocyte # 2.77 X10^3/ul (0.83-4.51); Lymphocyte % 36.5 % (19-41); Mean Corp Hgb Conc 31.5 g/dL (32-36); Mean Corpuscular Hgb 29.4 pg (27.0-32.0); Mean Corpuscular Volume 93.4 fL (81-99); Mean Platelet Vol. 10.1 fl (6.2-12.0); Monocyte# 0.67 X10^3/uL; Monocyte% 8.8 % (0-10); NRBC Flagged by Analyzer 0 % (0-5); Neutrophil # 3.36 X10^3/uL (2.7-7.7); Neutrophil % 44.4 % (47-70); Platelet Count 299 K/mm3 (150-450); RBC Distribution Width CV 12.3 % (11.6-14.6); Red Blood Count 4.22 M/mm3 (4.2-5.4); White Blood Count 7.6 K/mm3 (4.4-11.0)
[2025-02-25 17:07] LABS: Hemoglobin A1c 5.7 % (<=5.6)
[2025-02-25 17:26] LABS: Thyroid Stim Hormone (TSH) 0.573 uIU/mL (0.300-4.200); Vitamin D,25 Hydroxy 88.7 ng/mL (30-100)
== END | disposition home or self-care (01) ==
LOC: VSLAB 14:45
PROVIDERS: PCP Nurse Practitioner Family
DX: Z01.818 Encounter for other preprocedural examination (principal); E55.9 Vitamin D deficiency, unspecified; R73.01 Impaired fasting glucose
CPT/HCPCS: 36415; 82306; 83036; 84443; 85025

== ENCOUNTER 2025-02-28 09:00 | Outpatient (CLI) | payer MEDICARE, MEDICAID, SELFPAY ==
--- NOTE | 2025-03-04 18:27 | PAT.ANESEVAL ---
Pre-Assessment Diagnosis/Proposed Procedure Planned Operative Procedure(s): 360 Lumbar Fusion L3-4 anterior and revision posterior of L3-4 and L4-5 fusion, removal and reinsertion of hardware Anesthesia History Anesthesia History - specialty sales consultant: Anesthesia History - specialty sales consultant Hx Hospitalization No 03/04/25 14:46 Any Problems With Anesthesia No 03/04/25 14:46 Cholinesterase deficiency No 03/04/25 14:46 You/Your Family Experience No 03/04/25 14:46 fever (hyperthermia) with Relationship Recent Exposure to Contagious No 11/26/24 06:27 Disease Does patient have nerve Yes: INSTRUCTED TO TURN OF 03/04/25 14:46 stimulator DOS Patient instructed to have device shut off --Does patient have Pacemaker or ICD? When Was Last Pacemaker Check QUESTION #4 FULL TEXT: You/Your Family Experience fever (hyperthermia) with Anesthesia Last Oral Intake Last Oral intake: Last Oral Intake NPO since Meds taken in AM with sips of water? Meds patient instructed to take am of surgery PONV PONV - specialty sales consultant: PONV - specialty sales consultant Female Yes 03/04/25 14:46 HX of Motion Sickness No 03/04/25 14:46 HX of N/V After Surgery No 03/04/25 14:46 Non-Smoker Yes 03/04/25 14:46 Duration of Surgery greater Yes 03/04/25 14:46 than 60 minutes Number of Risk Factors 3 03/04/25 14:46 PONV Score Moderate Risk 03/04/25 14:46 Height & Weight Height & Weight: Anesthesia: Height & Weight Height 4 ft 10 in 01/14/25 13:03 Respiratory Assessment Respiratory Assessment - specialty sales consultant: Respiratory Tract Infection Hx - specialty sales consultant Hx Respiratory Tract Infection No 03/04/25 14:46 STOP Sleep Apnea STOP Sleep Apnea - specialty sales consultant: STOP Sleep Apnea - specialty sales consultant Hx Hypertension Yes: CONTROLLED WITH MED 03/04/25 14:46 Hx Sleep Apnea No 03/04/25 14:46 CPAP No 03/04/25 14:46 BIPAP Do you snore loudly (louder No 03/04/25 14:46 than talking or can be heard Do you often feel tired/ No 03/04/25 14:46 fatigued/ sleepy during daytime? Has anyone observed you stop No 03/04/25 14:46 breathing during sleep? STOP Results Negative 03/04/25 14:46 QUESTION #5 FULL TEXT : Do you snore loudly (louder than talking or can be heard through closed doors)? 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 Specify any problems Hx of Preganancy in last 3 No 03/04/25 14:46 Months Nurse Filling Out Transfusion VCHRISTIN 03/04/25 14:46 & Questions: Date: 03/04/25 03/04/25 14:46 Time: 14:48 03/04/25 14:46 Patient unable to answer at this time (ie. confused, unrespo /Reproduction History /Reproductive History - specialty sales consultant: /Reproductive Hx- specialty sales consultant Hx Now Gestational Age (in weeks): EDC: Hx Hx Para Hx Section SAB PFSH Medical History (Updated 03/04/25 @ 14:45 by Bobbi Sotomayor) History of trigger finger History of Holter monitoring Impingement of right shoulder Primary osteoarthritis, right shoulder Right shoulder pain Vapes nicotine containing substance Osteoarthritis Lumbar radiculopathy Impacted cerumen of both ears Wears glasses High cholesterol Former smoker Hypertension History of echocardiogram History of stress test Cardiology follow-up encounter Vitamin deficiency Chronic constipation Borderline type 2 diabetes mellitus Alcohol use disorder in remission Depression, unspecified ADHD Heat intolerance Osteopenia with high risk of fracture Smoking greater than 40 pack years Tremor Nicotine dependence, cigarettes, uncomplicated Insomnia CARBAJAL (dyspnea on exertion) Shortness of breath Abnormal EKG AA (alcohol abuse) COVID-19 vaccine series completed Essential hypertension Acute low back pain ADD (attention deficit disorder) Back pain Jaw swelling Low back pain due to bilateral sciatica Tobacco use disorder, continuous Encounter for screening for malignant neoplasm of lung in current smoker with 30 pack year history or greater Post-menopausal Eosinophilia Abnormal bruising Hay fever Fatigue Spinal cord stimulator status Overweight GERD (gastroesophageal reflux disease) Rheumatoid arthritis Primary osteoarthritis of left hip Vitamin D deficiency Anxiety and depression Rheumatoid arthritis Neuropathy Hyperlipemia Chronic bronchitis Cataracts, bilateral Asthma History of alcohol abuse Seasonal allergies Unilateral primary osteoarthritis, right hip Spondylosis of 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 myelopathy or radiculopathy Spinal stenosis of lumbosacral region Radiculopathy of lumbosacral region Degeneration, intervertebral disc, lumbosacral Home Medications ?Medication ?Instructions ?Recorded ?Last Taken ?Type blood pressure monitor (Blood #1 ea 09/30/20 Unknown Rx Pressure Kit) calcium 600 mg (as 1 cap PO DAILY SUPPLEMENT 10/27/22 Unknown History carbonate)-vitamin D3 10 mcg (400 unit) capsule omeprazole 40 mg capsule,delayed 40 mg PO DAILY GERD #90 caps 12/15/22 02/28/23 09:30 Rx release albuterol sulfate 90 mcg/actuation 2 puff inhalation Q6H PRN 02/23/23 Unknown Rx aerosol inhaler (ProAir HFA) shortness of breath or wheezing #8.5 grams Handicap Placard #1 ea 07/26/23 Unknown Rx amlodipine 10 mg tablet 10 mg PO DAILY BP #90 tabs 09/13/23 Unknown Rx 3 mL syringe with 1 inch 25-gauge #6 ea 10/24/24 Unknown Rx needle cyanocobalamin 1,500 mcg IM MONTHLY SUPPLEMENT #2 10/24/24 Unknown Rx vials acyclovir 400 mg tablet 400 mg PO MOWEFR HPV 11/12/24 Unknown History alendronate 70 mg tablet 70 mg PO QWEEK BONE HEALTH 11/12/24 Unknown History desvenlafaxine 100 mg 100 mg PO DAILY ANTIDEPRESSANT 11/12/24 Unknown History tablet,extended release 24 hr methylphenidate HCl 30 mg biphasic 60 mg PO BID ADHD 11/12/24 Unknown History 50-50 capsule,extended release Symbicort 160 mcg-4.5 2 inh inhalation BID ASTHMA #10.2 12/18/24 Unknown Rx mcg/actuation HFA aerosol inhaler grams (budesonide-formoterol) pregabalin 150 mg capsule 150 mg PO TID RA 12/19/24 Unknown History valsartan 320 mg tablet 320 mg PO DAILY BP 12/29/24 Unknown History furosemide 20 mg tablet 20 mg PO QAM DIURETIC #30 tabs 01/15/25 Unknown Rx potassium chloride 10 mEq 10 meq PO QDAY SUPPLEMENT #30 tabs 01/15/25 Unknown Rx tablet,extended release primidone 50 mg tablet See Rx Instructions .Route 01/15/25 Unknown Rx .COMPLEX TREMORS #60 tabs propranolol 20 mg tablet 20 mg PO BID TREMORS #60 tabs 01/15/25 Unknown Rx tizanidine 4 mg tablet See Rx Instructions PO QHS PRN 01/15/25 Unknown Rx muscle spasticity/muscle pain/insomnia #180 tabs aspirin 81 mg tablet 81 mg PO QDAY BLOOD THINNER 02/10/25 Unknown History leflunomide 20 mg tablet 20 mg PO QDAY RA 02/10/25 Unknown History albuterol sulfate 2.5 mg/3 mL 2.5 mg (3 mL) inhalation Q4H PRN 02/26/25 Unknown Rx (0.083 %) solution for nebulization Sob &/Or Wheezing #180 mL brexpiprazole 0.5 mg tablet 0.5 mg PO QHS ANTIDEPRESSANT 03/04/25 Unknown History (Rexulti) linaclotide 72 mcg capsule 72 mcg PO DAILY CONSTIPATION 03/04/25 Unknown History prednisone 5 mg tablet 5 mg PO QDAY PRN RA 03/04/25 Unknown History Allergy/AdvReac Type Severity Reaction Status Date / Time Penicillins Allergy Mild Hives Verified 03/04/25 14:28 adhesive tape AdvReac Severe Rash, Verified 03/04/25 14:28 itchy, raw acetaminophen (From Percocet) AdvReac Intermediate insomnia Verified 03/04/25 14:28 oxycodone (From Percocet) AdvReac Intermediate insomnia Verified 03/04/25 14:28 benzonatate (From Tessalon AdvReac Mild Itching Verified 03/04/25 14:28 Perlfrankie) Family History Brother CAD (coronary artery disease), Onset Age: 70 CABG Other Alcoholism Arthritis Asthma Heart disease Hyperlipemia Hypertension Surgical History Hx of colonoscopy Hx of colonoscopy Status post left foot surgery Hx of shoulder surgery History of hysterectomy History of foot surgery History of back surgery Status post trigger finger release History of carpal tunnel surgery History of rotator cuff surgery Social History Smoking Status: Current every day smoker tobacco type: e-cigarettes Tobacco: How many years used: 40 Electronic Cigarette Use: with nicotine second hand exposure: Yes quit status: considering quitting alcohol intake: former substance use type: does not use what type of physical activity do you participate in: walking Audit: Pertinent Findings HISTORY of Pertinent Findings History of Pertinent Findings: Patient had a full workup for EKG that demonstrated T wave inversions anteriorly. She underwent a stress test on 06/2021 which was negative for any ischemia. She has been stable since then. Pertinent Findings EKG Perinent findings: EKG done on February 28, 2025: Sinus bradycardia with short MD ST elevation, consider early repolarization, pericarditis, or injury ST & WAVE ABNORMALITY, CONSIDER ANTERIOR ISCHEMIA Abnormal ECG Stress test pertinent findings: Exercise stress test done on 06/16/2021 no evidence of reversible ischemia. Normal stress test. Normal myocardial perfusion stress test with no evidence of ischemia. Preserved ejection fraction. Echo (EF%) pertinent findings: Echo from 06-16-2021: Normal left ventricular systolic function estimated EF around 60%. Stage I diastolic dysfunction. Mild eccentric mitral valve insufficiency. Consult pertinent findings: Patient was seen by dirt contractor on 10-27-2022 Dr. Hernandez recommended that she continue medication management for her hypertension. Follow-up on an as-needed basis. Recommendation Anesthesia Recommendation Anesthesia recommendation: F/U recommended (I would recommend follow-up with cardiology in regards to her recent EKG. Although the patient was worked up for her T wave abnormality 4 years ago it appears that she may have ST elevations on this most recent EKG.) Follow up Details Consult Recommendation: Yes Consult Rec Details: I would recommend that the patient follow-up with her dirt contractor. Her recent EKG shows ST abnormalities that I do not appreciate on her previous EKGs from a few years ago. Appears that she has not followed up with cardiology in a few years.
[2025-03-08 11:12] LABS: HIV Nonreactive (Nonreactive); Hepatitis C Antibody Nonreactive (Nonreactive)
[2025-03-08 11:13] LABS: Hepatitis B Surface Antibody Nonreactive
[2025-03-08 11:25] LABS: Magnesium 2.2 mg/dL (1.5-2.2)
[2025-03-15 10:08] LABS: Cotinine Screen Blood 11.2 ng/mL (.); Hepatitis A AB, Total Negative (Negative); Nicotine Blood <1.0 ng/mL (.)
== END 2025-02-28 19:00 | disposition home or self-care (01) ==
LOC: SDC 07-03 08:06
PROVIDERS: Anesthesiology; PCP Nurse Practitioner Family; Referring Provider Orthopaedic Surgery Orthopaedic Surgery of the Spine; Visit Provider Orthopaedic Surgery Orthopaedic Surgery of the Spine
DX: Z01.818 Encounter for other preprocedural examination (principal)
CPT/HCPCS: 36415; 80323; 83735; 86703; 86706; 86708; 86803; 86850; 86900; 86901; 87081; 93005; G0480

== ENCOUNTER → 2025-03-10 | Outpatient (CLI) | payer MEDICARE, MEDICAID, SELFPAY | END | disposition home or self-care (01) | LOC: CVS 08:51 | PROVIDERS: PCP Nurse Practitioner Family; Referring Provider Internal Medicine Cardiovascular Disease; Visit Provider Internal Medicine Cardiovascular Disease | DX: R06.02 Shortness of breath (principal); I10 Essential (primary) hypertension; E78.5 Hyperlipidemia, unspecified | CPT/HCPCS: 93306 ==

== ENCOUNTER → 2025-04-15 | Outpatient (CLI) | payer MEDICARE, MEDICAID, SELFPAY ==
--- OUTSIDE RECORDS SUMMARY | 2025-04-15 06:58 | XMS RPT_ITS | CCD ---
Author Organization [facility] Care Team Providers Care Client Delivery Manager Name Role Phone Dr. aYdy Vera Primary Care Provider [phone] Dr. Yady Vera Referring Provider [phone] Hudson GAME WARDEN, GAME WARDEN-C Lashell Attending Provider Dr. Yady Vera Attending Provider [phone] Dr. Buddy Herrera Attending Provider Dr. Buddy Herrera Referring Provider Dr. Buddy Herrera Other Provider Dr. Yady Vera Primary Care Provider [phone] Dr. Yady Vera Attending Provider [phone] Dr. Yady Vera Referring Provider [phone] Dr. Dre Hinojosa Attending Provider Kaz GAME WARDEN, GAME WARDEN-C Padmini Attending Provider Dr. Yady Vera Primary Care Provider [phone] Dr. Buddy Herrera Attending Provider Dr. Buddy Herrera Referring Provider Dr. Yady Vera Primary Care Provider [phone] Dr. Yady Vera Attending Provider [phone] Dr. Yady Vera Referring Provider [phone] Dr. Yady Vera Primary Care Provider [phone] Dr. Yady Vera Attending Provider [phone] Dr. Yady Vera Referring Provider [phone] DION MCADAMS, DR ALEJO Primary Care Physician DION MCADAMS., DR. ALEJO Primary Care Unavailabl e ARABELLA DO, NIDAL Attending Unavailable Yady Vera MD Primary Care Provider [phone] Yady Vera MD Primary Care Provider [phone] Roberts SOFTWARE DEVELOPMENT PROJECT MANAGER, Se Primary Care Provider ROBERTS, SE Primary Care Unavailable DARON HERNANDEZ Referring Unavailable WINNIE HERNANDEZ Attending Unavailable DARON HERNANDEZ Referring Unavailable MAYKEL VERABE Dania Primary Care Unavailable WINNIE HERNANDEZ Attending Unavailable JOSEFA SERNA Attending Unavailable ROBERTS, SE Primary Care Unavailable ROBERTS, SE Primary Care Unavailable WINNIE HERNANDEZ Referring Unavailable Roberts VSC, Se Primary Care Unavailable Dre Ordaz Attending Unavailable Dre Ordaz Referring Unavailable Terrell Chow Admitting Unavailable Roberts VSC, Se Primary Care Unavailable Terrell Chow Attending Unavailable Roberts VSC, Se Primary Care Unavailable Mccurdy GAME WARDEN, Padmini Attending Unavailable Roberts VSC, Se Referring Unavailable Roberts VSC, Se Primary Care Unavailable Ric Walton Attending Unavailable Roberts VSC, Se Consulting Unavailable Ric Walton Referring Unavailable Beam VSC, Zebucassia Attending Unavailable Roberts VSC, Se Primary Care Unavailable Roberts VSC, Se Primary Care Unavailable Mccurdy GAME WARDEN, Padmini Referring Unavailable Mccurdy GAME WARDEN, Padmini Attending Unavailable Mccurdy GAME WARDEN, Padmini Referring Unavailable Mccurdy GAME WARDEN, Padmini Attending Unavailable Roberts VSC, Se Primary Care Unavailable Roberts VSC, Se Primary Care Unavailable Roberts VSC, Se Attending Unavailable Roberts VSC, Se Primary Care Unavailable Roberts VSC, Se Attending Unavailable Roberts VSC, Se Primary Care Unavailable Brandon Medina Attending Unavailable Brandon Medina Referring Unavailable Roberts VSC, Se Primary Care Unavailable Beam VSC, Zebulumichael Attending Unavailable Brandon Narayan Attending Unavailable Roberts VSC, Se Primary Care Unavailable Mccurdy GAME WARDEN, Padmini Consulting Unavailable Brandon Narayan Referring Unavailable Baddour, Kelechi Referring Unavailable Baddour, Kelechi Attending Unavailable Roberts VSC, Se Primary Care Unavailable Beam VSC, Zebulun Attending Unavailable Beam VSC, Zebulun Referring Unavailable Roberts VSC, Se Primary Care Unavailable Roberts VSC, Se Primary Care Unavailable Estephania Reagan Attending Unavailable Roberts VSC, Se Primary Care Unavailable Adithya, Jigna Referring Unavailable Adithya, Jigna Attending Unavailable Baddour, Kelechi Referring Unavailable Baddour, Kelechi Attending Unavailable Roberts VSC, Se Primary Care Unavailable Baddour, Kelechi Attending Unavailable Roberts VSC, Se Primary Care Unavailable Roberts VSC, Se Referring Unavailable Roberts VSC, Se Primary Care Unavailable Adithya Jigna Attending Unavailable Roberts VSC, Se Referring Unavailable Roberts VSC, Se Primary Care Unavailable David, Somerset Attending Unavailable Roberts VSC, Se Referring Unavailable Roberts VSC, Se Primary Care Unavailable Rachel Hidalgo Attending Unavailable Roberts VSC, Se Primary Care Unavailable Beam VSC, Zebulun Referring Unavailable Homa Mijares Attending Unavailable Buddy Herrera Attending Unavailable Kaz GAME WARDEN, Padmini Consulting Unavailable Kaz GAME WARDEN, Padmini Referring Unavailable Roberts VSC, Se Primary Care Unavailable Roberts VSC, Se Primary Care Unavailable Dre Ordaz Consulting Unavailable Elizabethruso, Dre Referring Unavailable Dre Ordaz Attending Unavailable Jerald Morales Attending Unavailable Beam, Zebulun Z Referring Unavailable Roberts VSC, Se Primary Care Unavailable Roberts VSC, Se Primary Care Unavailable Krystian Hernandez Attending Unavailable Roberts VSC, Se Referring Unavailable Rachel Hidalgo Attending Unavailable Roberts VSC, Se Primary Care Unavailable Roberts VSC, Se Primary Care Unavailable Lashell Treviño NP Attending Unavailable Roberts VSC, Se Primary Care Unavailable David, Krystian Attending Unavailable Terrell Chow Attending Unavailable Roberts VSC, Se Primary Care Unavailable Roberts VSC, Se Referring Unavailable Baddour, Kelechi Referring Unavailable Baddour, Kelechi Attending Unavailable Roberts VSC, Se Primary Care Unavailable Roberts VSC, Se Referring Unavailable Rachel Hidalgo Attending Unavailable Roberts VSC, Se Primary Care Unavailable Bhupendradour, Kelechi Attending Unavailable Roberts VSC, Se Primary Care Unavailable Roberts VSC, Se Referring Unavailable Roberts VSC, Se Primary Care Unavailable David, Krystian Attending Unavailable Roberts VSC, Se Referring Unavailable Baddour, Kelechi Attending Unavailable Roberts VSC, Se Primary Care Unavailable Roberts VSC, Se Primary Care Unavailable David, Krystian Attending Unavailable Roberts VSC, Se Primary Care Unavailable Borruso, Dre Attending Unavailable Roberts VSC, Se Referring Unavailable Baddour, Kelechi Referring Unavailable Baddour, Kelechi Attending Unavailable Roberts VSC, Se Primary Care Unavailable Terrell Chow Attending Unavailable Roberts VSC, Se Referring Unavailable Roberts VSC, Se Primary Care Unavailable Roberts VSC, Se Referring Unavailable Adithya, Jigna Attending Unavailable Roberts VSC, Se Primary Care Unavailable Brandon Narayan Attending Unavailable Roberts VSC, Se Primary Care Unavailable Roberts VSC, Se Referring Unavailable Terrell Chow Attending Unavailable Roberts VSC, Se Primary Care Unavailable Roberts VSC, Se Referring Unavailable Mccurdy GAME WARDEN, Padmini Attending Unavailable Roberts VSC, Se Referring Unavailable Roberts VSC, Se Primary Care Unavailable Baddour, Kelechi Attending Unavailable Baddour, Kelechi Referring Unavailable Roberts VSC, Se Primary Care Unavailable Baddour, Kelecih Attending Unavailable Baddour, Kelechi Referring Unavailable Roberts VSC, Se Primary Care Unavailable Roberts VSC, Se Primary Care Unavailable David, Krystian Referring Unavailable David, Somerset Attending Unavailable Roberts VSC, Se Primary Care Unavailable Mccurdy GAME WARDEN, Padmini Referring Unavailable Mccurdy GAME WARDEN, Padmini Attending Unavailable Adithya, Jigna Referring Unavailable Adithya, Jigna Attending Unavailable Roberts VSC, Se Primary Care Unavailable Rachel Hidalgo Referring Unavailable Rachel Hidalgo Attending Unavailable Roberts VSC, Se Primary Care Unavailable Roberts VSC, Se Primary Care Unavailable SHIOBED, ADA Attending Unavailable SHIVERS, ADA Referring Unavailable Roberts VSC, Se Attending Unavailable Roberts VSC, Se Primary Care Unavailable Mccurdy GAME WARDEN, Padmini Referring Unavailable Mccurdy GAME WARDEN, Padmini Attending Unavailable Roberts VSC, Se Primary Care Unavailable Roberts VSC, Se Primary Care Unavailable Elizabethrudominick Dre Attending Unavailable Roberts VSC, Se Referring Unavailable Beam VSC, Zebulun Attending Unavailable Beam VSC, Zebulun Referring Unavailable Roberts VSC, Se Primary Care Unavailable Roberts VSC, Se Primary Care Unavailable David, Somerset Referring Unavailable David, Somerset Attending Unavailable Terrell Chow Attending Unavailable Terrell Chow Admitting Unavailable Terrell Chow Referring Unavailable Noel Coleman Consulting Unavailable Allergies Allergy Classification Reported Allergen(s) Allergy Type Date of Onset Reaction(s) Facility (8 sources) Acetaminophen Drug Allergy 11-27-19 22 insomnia [facility] Work Phone: (19 sources) benzonatate; Translations: [benzonatate] Drug Allergy 05-03-20 19 Rash [facility] (20 sources) oxyCODONE; Translations: [OXYCODONE] Drug Allergy 11-04-19 Other: See Comments [facility] Work Phone: (19 sources) Penicillins; Translations: [PENICILLINS] Allergy to substance 11-01-19 03 [facility] (6 sources) Adhesive Tape; Translations: [adhesive tape] Propensity to adverse reactions 01-27-20 Rash, itchy, raw [facility] (1 source) Penicillin; Translations: [penicillins] Drug Allergy [facility] (10 sources) Latex; Translations: [LATEX] Drug Intolerance 11-09-19 23 [facility] Work Phone: (1 source) Acetaminophen Drug Allergy 03-11-20 25 [facility] (1 source) benzonatate Drug Allergy 03-11-20 25 [facility] (1 source) oxyCODONE Drug Allergy 03-11-20 25 [facility] Medications Current Medications Medication Drug Class(es) Dates Sig (Normalized) Sig (Original) 0.4 ML cyclosporine 0.5 MG/ML Ophthalmic Suspension [Restasis] (1 source) Start: 09-23-2022 take 1 dose into the eye(s) twice daily Restasis 0.05% ophthalmic emulsion Dose = 1 drop(s), Eyes, both, BID, # 30 EA, 0 Refill(s) Start Date: 09/23/22 Status: Ordered acyclovir 400 mg oral tablet (20 sources) Herpesvirus Nucleoside Analog DNA Polymerase Inhibitor, Herpes Simplex Virus Nucleoside Analog DNA Polymerase Inhibitor, Herpes Zoster Virus Nucleoside Analog DNA Polymerase Inhibitor Start: 09-23-2022 acyclovir 400 mg oral tablet Dose : 400 mg = 1 tab(s), Oral, Mon/Mon/Mon, # 14 tab(s), 0 Refill(s) Start Date: 09/23/22 Status: Ordered Start: 12-28-2018 End: 01-26-2022 take 400 mg by mouth once daily Acyclovir Discontinued 400 MG PO DAILY June 02, 2020 12:58pm November 03, 2021 2:20pm Comment on above: Take 400 mg by mouth . [id number] actuat albuterol 0.09 mg/actuat metered dose inhaler (20 sources) beta2-Adrenergic Agonist Start: 07-27-2021 take 1 puff(s) by inhalation every six hours Albuterol Sulfate (Proair Hfa) 90 mcg/actuation HFA aerosol inhaler Active 2 PUFF INHALATION EVERY 6 HOURS 8.5 July 27, 2021 2:15pm Start: 08-24-2020 End: 07-27-2021 take 1 puff(s) by inhalation every six hours Albuterol Sulfate (Proair Hfa) 90 mcg/actuation HFA aerosol inhaler Active 2 PUFF INHALATION EVERY 6 HOURS 8.5 July 27, 2021 1:15pm Start: 04-04-2019 End: 06-16-2020 take 1 puff(s) by inhalation every six hours Albuterol Sulfate (Proair Hfa) 90 mcg/actuation HFA aerosol inhaler Discontinued 2 PUFF INHALATION EVERY 6 HOURS 8.5 April 04, 2019 8:52am June 16, 2020 1:58pm Start: 01-24-2019 End: 11-03-2021 albuterol (PROVENTIL) 2.5 mg /3 mL (0.083 %) nebulizer solution as needed for Wheezing/Shortness of Breath. 3 01/24/2019 Active Start: 01-24-2019 End: 06-16-2020 take 2.5 mg by inhalation every four hours Albuterol Sulfate Discontinued 2.5 MG INHALATION Q4H 180 January 24, 2019 8:30am June 16, 2020 1:58pm Start: 01-24-2019 End: 01-24-2019 take 1.25 mg by inhalation every four hours Albuterol Sulfate Discontinued 1.25 MG INHALATION Q4H January 23, 2019 11:00pm January 24, 2019 8:31am Comment on above: as needed for Wheezi ng/Shortness of Breath. alendronic acid 70 mg oral tablet (8 sources) Bisphosphonate Start: 04-12-20 alendronate 70 mg oral tablet Dose : 70 mg = 1 tab(s), Oral, qWeek, # 12 tab(s), 0 Refill(s) Start Date: 09/23/22 Status: Ordered amLODIPine 10 mg oral tablet (20 sources) Dihydropyridine Calcium Channel Jose Juan Start: 03-17-20 End: 09-30-19 take 5 mg by mouth once daily Amlodipine Discontinued 5 MG PO DAILY September 16, 2020 8:13am September 30, 2020 2:51pm Start: 03-17-2020 End: 09-30-2020 Amlodipine Discontinued 2.5 MG PO DAILY March 16, 2020 11:00pm September 30, 2020 2:50pm Take with 5 mg tablet for a total daily dose of 7.5 mg Start: 03-04-2020 End: 03-17-2020 take 7.5 mg by mouth once daily Amlodipine Discontinue d 7.5 MG PO DAILY March 04, 2020 12:49pm March 17, 2020 1:18pm Start: 01-01-2019 End: 03-04-2020 take 1 tablet by mouth once daily Amlodipine Discontinued 5 MG PO DAILY November 21, 2019 12:27pm March 04, 2020 12:50pm TAKE 1 TABLET (5 MG) BY MOUTH ONCE DAILY Start: 11-01-2002 End: 03-06-2025 NORVASC 10MG TABLET Take one (1) tablet daily. 0 11/01/2002 Active Comment on above: Take one(1) tablet d aily. aspirin 81 mg oral tablet (5 sources) Platelet Aggregation Inhibitor, Nonsteroidal Anti-inflammatory Drug take 1 capsule by mouth once daily aspirin 81 mg cap Take 1 capsule by mouth once daily. Active Blood Pressure Monitor (Blood Pressure Kit) kit (8 sources) Start: Blood Pressure Monitor (Blood Pressure Kit) kit Active 0 .ROUTE .MEDSUPPLY September 30, 2020 3:50pm Check blood pressure daily for hypertension I10 Start: 09-30-2020 Blood Pressure Monitor (Blood Pressure Kit) kit Active 0 .ROUTE .MEDSUPPLY September 30, 2020 12:00am Check blood pressure daily for hypertension I10 Start: 09-30-2020 Blood Pressure Monitor (Blood Pressure Kit) kit Active 0 .ROUTE .MEDSUPPLY September 30, 2020 1:00am Check blood pressure daily for hypertension I10 brexpiprazole 1 mg oral tablet (5 sources) Atypical Antipsychotic Start: 11-17-2024 take 1 tablet by mouth once daily at bedtime REXULTI 1 mg tablet Take 1 mg by mouth daily at bedtime. 11/17/2024 Active 120 actuat budesonide 0.08 mg/actuat / formoterol fumarate 0.0045 mg/actuat metered dose inhaler (20 sources) Corticosteroid, beta2-Adrenergic Agonist Start: 11-03-2021 End: 05-14-2022 take 1 puff(s) by inhalation twice daily Budesonide-Form oterol (Symbicort) 80-4.5 mcg/actuation HFA aerosol inhaler Active 2 PUFF INHALATION TWICE A DAY May 14, 2022 6:10am Start: 09-28-2021 End: 11-26-2021 take 1 puff(s) by inhalation every twelve hours Budesonide-Formoterol (Symbicort) 80-4.5 mcg/actuation HFA aerosol inhaler Discontinued 2 PUFF INHALATION Q12H 10.2 September 28, 2021 12:36pm November 26, 2021 8:42am Start: 08-24-2021 End: 09-28-2021 take 1 puff(s) by inhalation every twelve hours Budesonide-Formoterol (Symbicort) 80-4.5 mcg/actuation HFA aerosol inhaler Discontinued 2 PUFF INHALATION Q12H 10.2 August 24, 2021 11:49am September 28, 2021 12:36pm Start: 08-24-2021 End: 09-28-2021 take 1 puff(s) by inhalation every twelve hours Budesonide-Formoterol (Symbicort) 80-4.5 mcg/actuation HFA aerosol inhaler Discontinued 2 PUFF INHALATION Q12H 10.2 August 24, 2021 12:49pm September 28, 2021 1:36pm Start: 01-20-2021 End: 08-24-2021 take 1 puff(s) by inhalation every twelve hours Budesonide-Formoterol (Symbicort) 80-4.5 mcg/actuation HFA aerosol inhaler Discontinued 2 PUFF INHALATION Q12H 10.2 90 January 20, 2021 7:34am August 24, 2021 11:49am Start: 01-20-2021 End: 08-24-2021 take 1 puff(s) by inhalation every twelve hours Budesonide-Formoterol (Symbicort) 80-4.5 mcg/actuation HFA aerosol inhaler Discontinued 2 PUFF INHALATION Q12H 10.2 90 January 20, 2021 8:34am August 24, 2021 12:49pm Start: 06-08-2020 End: 01-20-2021 take 1 puff(s) by inhalation every twelve hours Budesonide-Formoterol (Symbicort) 80-4.5 mcg/actuation HFA aerosol inhaler Discontinued 2 PUFF INHALATION Q12H 10.2 90 June 08, 2020 12:12pm January 20, 2021 7:34am take 2 puff(s) by in halation twice daily budesonide-formoterol (SYMBICORT) 80-4.5 mcg/actuation inhaler Inhale 2 puffs as instructed two times a day. Active calcium carbonate 1500 mg / cholecalciferol 0.01 mg oral capsule (16 sources) Vitamin D Start: 01-24-2019 take 1 capsule by mouth twice daily calcium carbonate-vitamin D3 600 mg (1,500 mg)-400 unit capsule Active 1 CAP PO TWICE A DAY 180 January 23, 2019 11:00pm Start: 01-24-2019 End: 01-24-2019 take 1 capsule by mouth twice daily Calcium Carbonate-Vitamin D3 (Calcium 600 With Vitamin D3) 600 mg(1,500mg) -500 unit capsule Discontinued 1 CAP PO TWICE A DAY 180 January 23, 2019 11:00pm January 24, 2019 3:15pm Calcium Carbonate / vitamin D3 (9 sources) calcium carbonat e/vitamin D3 (CALCIUM 600 + D ORAL) Take by mouth. Active calcium carbonat e/vitamin D3 (CALCIUM 600 + D ORAL) Take by mouth. 0 Active Comment on above: Take by mouth. celecoxib 100 mg oral capsule (20 sources) Nonsteroidal Anti-inflammatory Drug Start: 01-05-2021 End: 11-03-2021 take 1 capsule by mouth once daily Celecoxib (Celebrex) 100 mg capsule Active 100 MG PO DAILY November 03, 2021 2:17pm Start: 06-02-2020 End: 12-30-2020 take 100 mg by mouth once daily Celecoxib Discontinued 100 MG PO DAILY June 02, 2020 12:58pm December 30, 2020 1:27pm Start: 05-11-2018 End: 06-02-2020 take 200 mg by mouth once daily Celecoxib Discontinued 200 MG PO DAILY May 10, 2018 11:00pm June 02, 2020 12:59pm End: 12-05-2024 take 1 capsule by mouth twice daily celecoxib (CELEBREX) 200 mg capsule Take 200 mg by mouth twice daily. 12/05/2024 Discontinued Comment on above: Take 200 mg by mouth twice daily. cholecalciferol 0.125 mg oral capsule (20 sources) Vitamin D Start: take 125 ug by mouth once daily Cholecalciferol (Vitamin D3) Active 125 MCG PO DAILY November 03, 2021 12:00am Start: 01-04-2018 End: 11-03-2021 take 1000 [IU] by mouth once daily Cholecalciferol (Vitamin D3) Discontinued 1000 UNIT PO DAILY January 03, 2018 11:00pm November 03, 2021 2:18pm End: 03-06-2025 take 1 tablet by mouth once daily cholecalciferol (VITAMIN D-3) 5,000 unit tab Take 5,000 Units by mouth once daily. 03/06/2025 Discontinued (Discontinued by Patient) Comment on above: Take 5,000 Units by mouth once daily. cyclobenzaprine hydrochloride 10 mg oral tablet (1 source) Muscle Relaxant Start: 023 End: 023 take 1 tablet by mouth every eight hours as needed for pain and pain cyclobenzaprine (FLEXERIL) 10 mg tablet Indications: Pain Take 1 tablet by mouth three times daily as needed for muscle spasm for up to 7 days. 21 tablet 0 11/25/2022 12/02/2022 Active Comment on above: Take 1 tablet by gilberto three times daily as needed for muscle spasm for up to 7 days. 24 hr desvenlafaxine succinate 100 mg extended release oral tablet (5 sources) Serotonin and Norepinephrine Reuptake Inhibitor Start: 025 take 1 tablet by mouth once daily desvenlafaxine ER (PRISTIQ) 100 mg 24 hr tablet Take 1 tablet by mouth once daily. 11/09/2024 Active DULoxetine 60 mg delayed release oral capsule (20 sources) Serotonin and Norepinephrine Reuptake Inhibitor Start: End: take 1 capsule by mouth twice daily Duloxetine (Cymbalta) 60 mg capsule,delayed release(DR/EC) Active 60 MG PO TWICE A DAY 180 January 11, 2022 7:48am Start: 11-03-2021 End: 11-26-2021 take 1 capsule by mouth once daily Duloxetine (Cymbalta) 60 mg capsule,delayed release(DR/EC) Discontinued 60 MG PO DAILY November 03, 2021 2:18pm November 26, 2021 8:42am Start: 11-03-2021 End: 11-26-2021 take 30 mg by mouth once daily Duloxetine Discontinued 30 MG PO DAILY November 03, 2021 12:00am November 26, 2021 8:41am Start: 07-14-2021 End: 11-03-2021 take 1 capsule by mouth twice daily Duloxetine (Cymbalta) 60 mg capsule,delayed release(DR/EC) Discontinued 60 MG PO TWICE A DAY 60 August 06, 2021 8:00am November 03, 2021 2:20pm Start: 07-15-2019 End: 07-14-2021 take 1 capsule by mouth once daily Duloxetine (Cymbalta) 30 mg capsule,delayed release(DR/EC) Discontinued 30 MG PO DAILY June 29, 2020 11:40am March 31, 2021 1:18pm Start: 04-08-2019 End: 12-05-2024 take 1 capsule by mouth once daily Duloxetine (Cymbalta) 60 mg capsule,delayed release(DR/EC) Discontinued 60 MG PO DAILY June 29, 2020 11:39am March 31, 2021 1:18pm Start: 01-24-2019 End: 04-08-2019 take 1 capsule by mouth once daily Duloxetine (Cymbalta) 30 mg capsule,delayed release(DR/EC) Discontinued 30 MG PO DAILY February 07, 2019 11:00pm April 08, 2019 12:14pm Comment on above: Take 60 mg by mouth once daily. furosemide 20 mg oral tablet (5 sources) Loop Diuretic Start: 2024 take 1 tablet by mouth once daily in the morning furosemide (LASIX) 20 mg tablet Take 20 mg by mouth every morning. 11/26/2024 Active hydroCHLOROthiazide 25 mg oral tablet (8 sources) Thiazide Diuretic Start: 2020 take 25 mg by mouth once daily Hydrochlorothiazide Active 25 MG PO DAILY August 13, 2021 12:00am lidocaine 0.05 mg/mg medicated patch (1 source) Antiarrhythmic, Amide Local Anesthetic Start: 2022 End: 2022 lidocaine (LIDODERM) 5 % Indications: Pain Apply 1 Patch as directed once daily for 14 days. Remove old patch prior to placing new patch. Location: Patch on for 12 hours leave patch off for [address] a new patch on for another 12 hours. 14 Patch 0 11/25/2022 12/09/2022 Active Comment on above: Apply 1 Patch as dir ected once daily for 14 days. Remove old patch prior to placing new patch. Location: Patch on for 12 hours leave patch off for [address] a new patch on for another 12 hours. linaclotide 0.072 mg oral capsule (20 sources) Guanylate Cyclase-C Agonist Start: 2017 End: 2021 take 1 capsule by mouth once daily Linaclotide (Linzess) 72 mcg capsule Active 0 .ROUTE .COMPLEX July 22, 2022 11:24am Take 1 capsule by mouth once daily Comment on above: Take 1 capsule by [facility] once daily. Administer on an empty stomach. Swallow whole; DO NOT crush or chew. losartan potassium 100 mg oral tablet (20 sources) Angiotensin 2 Receptor Jose Juan Start: 2024 take 1 tablet by mouth once daily losartan (COZAAR) 100 mg tablet Take 1 tablet by mouth once daily. 10/17/2024 Active Start: 07-14-2021 End: 07-05-2022 take 100 mg by mouth once daily Losartan Active 100 MG PO DAILY July 05, 2022 2:55pm Start: 05-26-2021 End: 07-14-2021 take 50 mg by mouth once daily Losartan Discontinued 5 0 MG PO DAILY May 25, 2021 11:00pm July 14, 2021 1:53pm Magnesium (8 sources) Start: 11-03-2021 take 250 mg by mouth once daily Magnesium Active 250 MG PO DAILY November 03, 2021 3:22pm Start: 11-03-2021 take 250 mg by mouth once igor y Magnesium Active 250 MG PO DAILY November 03, 2021 12:00am Start: 11-03-2021 take 250 mg by mouth once igor y Magnesium Active 250 MG PO DAILY November 03, 2021 1:00am methylphenidate hydrochloride 10 mg oral tablet (10 sources) Central Nervous System Stimulant Start: 11-06-2024 take 1 tablet by mouth once daily in the evening methylphenidate (RITALIN) 10 mg tablet Take 10 mg by mouth. Take 1 tablet daily at 2:30 pm 11/06/2024 Active Start: 09-20-2024 take 1 capsule by mo uth once daily in the morning methylphenidate CD (METADATE CD) 60 mg biphasic capsule Take 60 mg by mouth every morning. 09/20/2024 Active CHASEEBElizabeth, PF, 100 % drop (5 sources) Start: 11-18-2024 MIEBO, PF, 100 % drop 11/18/2024 Active MULTIVITAMIN TABLET (9 sources) Start: 11-01-2002 MULTIVITAMIN T ABLET Take one(1) tablet daily. 0 11/01/2002 Active Comment on above: Take one(1) tablet d aily. multivitamin,tx-iron -minerals (8 sources) Start: 04-21-2020 take 1 tablet by mouth once daily multivitamin,tx-iro n-minerals Active 1 TABLET PO DAILY April 21, 2020 1:05pm Start: 04-21-2020 take 1 tablet by gilberto th once daily multivitamin,ri-mozj-xqgoskso Active 1 T ABLET PO DAILY April 20, 2020 11:00pm Start: 04-21-2020 take 1 tablet by gilberto th once daily multivitamin,ug-hicr-hxefvuad Active 1 T ABLET PO DAILY April 21, 2020 12:00am omeprazole 40 mg delayed release oral capsule (20 sources) Proton Pump Inhibitor Start: 11-26-2024 take 1 capsule by mouth once daily omeprazole (PRILOSEC) 40 mg capsule Take 1 capsule by mouth once daily. 11/26/2024 Active Start: 09-21-2021 End: 11-03-2021 take 40 mg by mouth once daily Omeprazole Discontinued 40 MG PO DAILY October 25, 2021 9:54am November 03, 2021 2:24pm Start: 07-15-2019 End: 06-16-2020 take 40 mg by mouth once daily before breakfast Omeprazole Discontinued 40 MG PO EVERY MORNING September 30, 2019 4:33pm January 31, 2020 9:58am Take in the morning 30 minutes before breakfast microencapsulated potassium chloride 10 meq extended release oral tablet (5 sources) Start: 11-26-2024 take 1 tablet by mouth once daily potassium chloride ER (KLOR-CON M10) 10 mEq tablet Take 1 tablet by mouth once daily. 11/26/2024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 Overweight; Translations: [Overweight] Episodic Other nutritional; endocrine; and metabolic disorders (3 sources) Overweight; Translations: [Overweight] Episodic Other screening for suspected conditions (not mental disorders or infectious disease) (19 sources) Patient encounter status; Translations: [Encounter for screening for malignant neoplasm of respiratory organs] Onset: 02-05-2025 Episodic Other skin disorders (8 sources) Facial swelling ; Translations: [Localized swelling, mass and lump, head] Episodic Personality disorders (2 sources) Cluster B personality disorder ; Translations: [Cluster C personality disorder] 06-24-2019 Chronic Residual codes; unclassified (1 source) Presence of other specified functional implants; Translations: [Presence of other specified functional implants] Onset: 02-17-2025 Chronic Residual codes; unclassified (8 sources) History of vaccination; Translations: [Personal history of other drug therapy] Episodic Residual codes; unclassified (8 sources) Insomnia; Translations: [Insomnia, unspecified] Episodic Residual codes; unclassified (8 sources) Postmenopausal state; Translations: [Asymptomatic menopausal state] Episodic Residual codes; unclassified (7 sources) Insomnia, unspecified; Translations: [Insomnia, unspecified] Episodic Residual codes; unclassified (3 sources) Asymptomatic menopausal state; Translations: [Asymptomatic postmenopausal status (age-related) (natural)] Episodic Residual codes; unclassified (1 source) Intolerant of heat; Translations: [Other general symptoms and signs] Episodic Residual codes; unclassified (1 source) Other general symptoms and signs; Translations: [Other general symptoms] Episodic Residual codes; unclassified (2 sources) Pain; Translations: [Pain, unspecified] Episodic Residual codes; unclassified (1 source) Edema, unspecified; Translations: [Edema, unspecified] Onset: 02-25-2025 Episodic Rheumatoid arthritis and related disease (20 sources) Rheumatoid arthritis; Translations: [Rheumatoid arthritis, unspecified] Onset: 05-03-2019 05-03-2019 Chronic Spondylosis; intervertebral disc disorders; other back problems (20 sources) Lumbosacral spondylosis without myelopathy; Translations: [Spondylosis without myelopathy or radiculopathy, lumbosacral region] Onset: 05-07-2019 05-07-2019 Chronic Sprains and strains (8 sources) Strain of knee; Translations: [Strain of unspecified muscle(s) and tendon(s) at lower leg level, left leg, initial encounter] Episodic Substance-related disorders (20 sources) Nicotine dependence; Translations: [Nicotine dependence, cigarettes, uncomplicated] Onset: 02-26-2025 Chronic Superficial injury; contusion (14 sources) Abrasion of left knee; Translations: [Abrasion, left knee, initial encounter] Episodic Unclassified (1 source) Low back pain, unspecified; Translations: [Low back pain, unspecified] Onset: 02-25-2025 Past or Other Problems Problem Classification Problem Date Documented Da te Episodic/Chronic Blindness and vision defects (2 sources) Other visual disturbances; Translations: [Unspecified subjective visual disturbances] Onset: 12-29-2024 Episodic Fluid and electrolyte disorders (1 source) Hypokalemia; Translations: [Hypokalemia] Onset: 10-07-2024 Episodic Other connective tissue disease (1 source) Trigger finger, left ring finger; Translations: [Trigger finger, left ring finger] Onset: 12-13-2024 Episodic Screening and history of mental health and substance abuse codes (9 sources) Ex-smoker; Translations: [Personal history of nicotine dependence] Onset: 05-03-2019 05-03-2019 Episodic Spondylosis; intervertebral disc disorders; other back problems (20 sources) Low back pain co-occurrent and due to bilateral sciatica; Translations: [Lumbago with sciatica, right side] Onset: 05-07-2019 05-21-2019 Episodic Unclassified (2 sources) Abrasion, left knee, initial encounter Results Test Name Value Interpretation Reference Range Facility Hepatitis A AB, Totalon 03-04 HEPATITIS A,TOT Negative Normal Negative [facility] Comment on above: Result Comment: Comm ent: The HAV total antibody assay detects both IgG andIgM but does not differentiate between them. A negativeresult suggests susceptibility to infection. A positiveresult could be due to vaccination, previously resolvedinfection or active infection. Testing for HAV IgM shouldbe performed if active HAV infection is suspected. [facility]ers profiles that will automatically reflex positive HAVtotal antibody results to IgM (e.g., panel #[id number] HAVAntibody w/ Rfx).Performed at: [address] [id number] Director: Dereck Buchanan MD, Phone: [phone] at: [address] [id number] Director: Fady Alfaro PhD, Phone: [phone] Performed By: #### L 3890.6301, L3600.3400, L3890.6202, L3890.6006, M100.651, L3100.0300, BTSPAT ####[facility] [address] [place], [address] Nicotine Screen Bloodon 03-04 COTININE BLOOD 11.2 ng/mL Normal . [facility] Comment on above: Result Comment: This test was developed and its performance characteristicsdetermined by [facility]. It has not been cleared orapproved by the Food and Drug Administration.Cotinine levels greater than 20.0 are consistent with theuse of tobacco or tobacco cessation products. Performed By: #### L 3890.6301, L3600.3400, L3890.6202, L3890.6006, M100.651, L3100.0300, BTSPAT ####[facility] [address] [place], [place], [id number] NICOTINE BLOOD <1.0 Normal . [facility] Comment on above: Result Comment: This test was developed and its performance characteristicsdetermined by [facility]. It has not been cleared orapproved by the Food and Drug Administration.Nicotine levels greater than 2.0 are consistent with theuse of tobacco or tobacco cessation products. Performed By: #### L 3890.6301, L3600.3400, L3890.6202, L3890.6006, M100.651, L3100.0300, BTSPAT ####[facility] [address] [place], [address] Pulmonary Visit Reporton Pulmonary Visit Report Normal [facility] Echo Completeon 03-10-2025 Echo Complete Normal [facility] HIVon 03-08-2025 HIV Non-Reactive Normal Nonreactive [facility] Comment on above: Result Comment: Non- ReactiveReactiveRepeatedly reactive samples must be confirmed according [facility] recommended confirmatory algorithms. The subresults foreither HIVAG or AHIV can be used as an aid in the selectionof the confirmation algorithm for reactive samples.Send out specimens with Reactive results to [facility] forconfirmation.Order the HIV antibody detection and differentiation:lc#[id number] Performed By: #### L 3890.6301, L3600.3400, L3890.6202, L3890.6006, M100.651, L3100.0300, BTSPAT ####[facility] [address] [place], [address] Hepatitis B Surface Antibody on 03-08-2025 HEP B Surf Ab Non-Reactive Normal [facility] Comment on above: Result Comment: <8.5 mIU/mL: Non-Reactive8.5<= x <11.5 mIU/mL: Indeterminate>=11.5 mIU/mL: Reactive Non Reactive: Inconsistent with immunity less than <10 mIU/mL Reactive: Consistent with immunity greater than or equal to 10 mIU/mL Performed By: #### L 3890.6301, L3600.3400, L3890.6202, L3890.6006, M100.651, L3100.0300, BTSPAT ####[facility] [address] [place], [address] Hepatitis C Antibodyon 03-08 Hepatitis C Ab Non-Reactive Normal Nonreactive [facility] Comment on above: Result Comment: Reac tive: Presumptive evidence of antibodies to HCV. [facility] recommendations for supplemental testing.Non-Reactive: Antibodies to HCV were not detected; does notexclude the possibility of exposure to HCVReactive Results are presumptive evidence of antibodies toHCV. Follow CDC recommendations for supplemental testing.Order confirmation testing: HCV Quant by PCR testing -HCVPCR #[id number] Non Reactive: < 0.8 Equivocal: >/= 0.8 to < 1.0 Reactive: >/= 1.0The [facility] requires that a reactive/equivocal HCV antibodyresult be sent out for confirmation. HCV Quant by PCRtesting. Performed By: #### L 3890.6301, L3600.3400, L3890.6202, L3890.6006, M100.651, L3100.0300, BTSPAT ####[facility] [address] [place], [address] MRSA/SAID NASAL SCREENon MRSA+SAID SCRN Reason for Exam: Jazmin clarisse MRSA MRSA Negative S. AUREUS S. aureus Negative Normal [facility] Comment on above: Performed By: #### L 3890.6301, L3600.3400, L3890.6202, L3890.6006, M100.651, L3100.0300, BTSPAT ####[facility] [address] [place], [place], [id number] Magnesiumon 03-08-2025 Magnesium [Mass/Vol] 2.2 mg/dL Normal 1.5-2.2 [facility] Comment on above: Performed By: #### L 501.5200 ####[facility] [address] [place], [place], [id number] Type AND Screen - PAT ONLYon 03-08-2025 ABO and Rh group Nom (Bld) Blood group O Rh(D) positive Normal [facility] Comment on above: Order Comment: Surge ry Date: 03/17/25Reason for Laboratory Test [id number] Lumbar Fusion L3-4 anterior and revision posterior Performed By: #### L 3890.6301, L3600.3400, L3890.6202, L3890.6006, M100.651, L3100.0300, BTSPAT ####[facility] [address] [place], [address] CNOVon 03-06-2025 CNOV Office Visit (RHWSTR ) LELE PANG ([id number]) 1955 F Date Time Provider Department 03/06/25 1:00 PM WINNIE HERNANDEZ WSTR During your visit today, we recorded the following information about you: Pulse Respiration Blood pressure Weight 77/minute 17/minute 143/86 59.1 kg Winnie Hernandez PA-C 03/06/2025 1:57 PM Signed Rheumatology Clinic Visit March 06, 2025 Last seen: 12/05/24 CC: Follow Up HPI: Lele Pang is a 69 year old female who follows with rheumatology for Rheumatoid arthritis. BRIEF RHEUM History: Diagnosed with RA in 2015 though [facility] after multiple trigger finger surgeries and elevated rheumatologic markers. - Initially treated with methotrexate injections, which was later switched to leflunomide -history of osteoarthritis in her back and hips, for which she receives injections. She recently had a lumbar injection for severe sciatica with pain management at [facility], which significantly limited her mobility and daily activities. She has degenerative disc disease, spinal stenosis, and a history of spinal fusion. She reports permanent nerve damage in her left foot following the fusion surgery, characterized by numbness and inability to move the foot. She is also on meloxicam for back pain and uses prednisone 5 mg during flare-ups. - Sees Dr. Zuñiga, a neurologist, for tremors and nerve issues. - She has a history of asthma in childhood and believes she now has COPD or emphysema. She undergoes annual screening low-dose CT scans of her lungs, with the next one scheduled for January. She has a history of osteoporosis, diagnosed in 2021, with a T-score of -2.5 in her lumbar spine. - alendronate since 2021 Current Rheum treatment: Leflunomide 20 mg daily Bone Health Treatment: Fosamax through PCP- started 2021 - Recent BMD dated 12/18/24 - Stable (lumbar spine improved 3%, R Total hip stable) Past treatments: Methotrexate - stopped due to allergic reaction (rash, injection site reaction, skin dicoloration) Current clinical: Not doing well currently. She is scheduled for back surgery 03/17/25. Insurance denied the claim unless she is nicotine free. On barbiturate through her neurologist for her tremors. Over the past few weeks she has been more depressed, and feeling awful. She was having thoughts of why am I here. Has contacted her psychiatrist. She feels she has been withdrawing from stopping that medication. She has feeling of indifference. Also her EKG showed something, so now she has to have stress test and ECHO done all through [facility]. Mentally she feels like she is going through a lot. She is Her psychologist is Hannah Rojo. They are adjusting her Ritalin - after she stops it she feels 'off' She was diagnosed with ADD in 2016 Rheumatoid is doing OK. No recent flares. Tolerating meds. No recent infections. No night sweats, unintentional weight loss, or GI side effects. Monitoring: Labs 02/26 - OK no concerns Blood TB Negative (02/11/2025) Remote Hep Latest Ref Rng AND Units 02/11/2025 Hepatitis Screen Hep B Core Ab, Total Negative Negative Hep B Surf Ab Qual Negative Hep C Antibody IA Negative Negative Hep B Surface Ag Negative Negative Last Bone Density: 12/18/2024 at [facility] - LS T-score -2.2 stable (3% increase) - RFN T-score -1.7 - R Total Hip T-score -1.4 stable (0.3% decrease) Last Uric acid Latest Ref Rng AND Units 01/27/2013 Uric Acid Uric Acid 2.5 - 6.2 mg/dL 6.7 Sed rate/CRP Latest Ref Rng AND Units 09/26/2023 02/11/2025 ESR, WSR WSR 0 - 20 mm/hr 2 2 Latest Ref Rng AND Units 02/11/2025 CRP CRP <0.9 mg/dL <0.3 OUTSIDE STUDIES / DATA Labs done 25 at [facility]. Sed rate 7 normal BMP with elevated BUN 23 normal creatinine 0.92 AST ALT normal Tisha 1 negative SSA negative SSB negative Small negative [employer] TECHNICIAN negative SCL 70 negative double-stranded DNA negative antichromatin antibodies negative centromere antibody negative CRP normal 0.36 Rheumatoid factor 27 CCP antibodies > 250 ---- Low-dose CT lung screening 01/30/2024 -Since have been obtained from January 24, 2023 and 8 minimal endotracheal and endobronchial mucous dyspnea from prior exam more than mild peribronchial thickening is unchanged compatible with mild acute on chronic bronchitis and bronchiolitis. No suspicious change from prior exams no change overall lung assessment lung RADS category 1 continue annual X-ray right hand November 16, 2018 Impression: No erosive or significant proliferative arthropathy X-ray left hand November 16, 2018 Impression no erosive or proliferative arthropathy X-ray left hand Jan 06 2020 normal x-ray of the hand findings are similar to previous study X- (more content not included)... Normal [facility] Orthopedic Visit Reporton Orthopedic Visit Report Normal [facility] MR/PAT.ANEon 03-04-2025 MR/PAT.ANE Normal [facility] CBC W/Diff, Automatedon - Absolute Lymph 2.77 X10 3/uL Normal 0.83-4.51 [facility] Comment on above: Performed By: #### L 506.1001, L501.9985, L100.0100, L501.9520 ####[facility] [address] [place], [place], [id number] Absolute Neut 3.4 X10 3/uL Normal 2.0-7.7 [facility] Comment on above: Performed By: #### L 506.1001, L501.9985, L100.0100, L501.9520 ####[facility] [address], [address] Basophils/100 WBC (Bld) 1.2 % High 0-1 [facility] Comment on above: Performed By: #### L 506.1001, L501.9985, L100.0100, L501.9520 ####[facility] [address] [place], [address] Eosinophils/100 WBC (Bld) 8.6 % High 0-5 [facility] Comment on above: Performed By: #### L 506.1001, L501.9985, L100.0100, L501.9520 ####[facility] [address] [place], [address] Erythrocyte distribution width (RBC) [Ratio] 12.3 % Normal 11.6-14.6 [facility] Comment on above: Performed By: #### L 506.1001, L501.9985, L100.0100, L501.9520 ####[facility] [address] [place], [address] Hematocrit (Bld) [Volume fraction] 39.4 % Normal 37-47 [facility] Comment on above: Performed By: #### L 506.1001, L501.9985, L100.0100, L501.9520 ####[facility] [address] [place], [address] Hemoglobin (Bld) [Mass/Vol] 12.4 g/dL Normal 12.0-15.0 [facility] Comment on above: Performed By: #### L 506.1001, L501.9985, L100.0100, L501.9520 ####[facility] [address] [place], [address] IG% 0.500 Normal 0.0-0.9 [facility] Comment on above: Result Comment: IG% - Immature Granulocytes (promyelocytes, myelocytes andmetamyelocytes) > 1% indicates that a LEFT SHIFT is Present. Performed By: #### L 506.1001, L501.9985, L100.0100, L501.9520 ####[facility] [address] [place], [address] Lymphocytes/100 WBC (Bld) 36.5 % Normal 19-41 [facility] Comment on above: Performed By: #### L 506.1001, L501.9985, L100.0100, L501.9520 ####[facility] [address] [place], [address] MCH (RBC) [Entitic mass] 29.4 pg Normal 27.0-32.0 [facility] Comment on above: Performed By: #### L 506.1001, L501.9985, L100.0100, L501.9520 ####[facility] [address] [place], [address] MCHC (RBC) [Mass/Vol] 31.5 g/dL Low 32-36 [facility] Comment on above: Performed By: #### L 506.1001, L501.9985, L100.0100, L501.9520 ####[facility] [address] [place], [address] MCV (RBC) [Entitic vol] 93.4 fL Normal 81-99 [facility] Comment on above: Performed By: #### L 506.1001, L501.9985, L100.0100, L501.9520 ####[facility] [address] [place], [address] Monocytes/100 WBC (Bld) 8.8 % Normal 0-10 [facility] Comment on above: Performed By: #### L 506.1001, L501.9985, L100.0100, L501.9520 ####[facility] [address] [place], [address] Neutrophils/100 WBC (Bld) 44.4 % Low 47-70 [facility] Comment on above: Performed By: #### L 506.1001, L501.9985, L100.0100, L501.9520 ####[facility] [address] [place], [address] Nucleated RBC (Bld) [#/Vol] 0 10*3/uL Normal 0-5 [facility] Comment on above: Performed By: #### L 506.1001, L501.9985, L100.0100, L501.9520 ####[facility] [address] [place], [address] Platelet mean volume (Bld) [Entitic vol] 10.1 fL Normal 6.2-12.0 [facility] Comment on above: Performed By: #### L 506.1001, L501.9985, L100.0100, L501.9520 ####[facility] [address] [place], [address] Platelets (Bld) [#/Vol] 299 10*3/uL Normal 150-450 [facility] Comment on above: Performed By: #### L 506.1001, L501.9985, L100.0100, L501.9520 ####[facility] [address] [place], [address] RBC (Bld) [#/Vol] 4.22 10*6/uL Normal 4.2-5.4 [facility] Comment on above: Performed By: #### L 506.1001, L501.9985, L100.0100, L501.9520 ####[facility] [address] [place], [address] RDW SD 42.0 fl Normal 35.1-43.9 [facility] Comment on above: Performed By: #### L 506.1001, L501.9985, L100.0100, L501.9520 ####[facility] [address] [place], [address] WBC (Bld) [#/Vol] 7.6 10*3/uL Normal 4.4-11.0 [facility] Comment on above: Performed By: #### L 506.1001, L501.9985, L100.0100, L501.9520 ####[facility] [address] [place], [address] Hemoglobin A1con 02-25-2025 HbA1c (Bld) [Mass fraction] 5.7 % Normal <=5.6 [facility] Comment on above: Result Comment: Norm al < 5.7 % Prediabetic 5.7 - 6.4 % Diabetic >or= 6.5 % Please note range changes. Performed By: #### L 506.1001, L501.9985, L100.0100, L501.9520 ####[facility] [address] [place], [address] Office Visit Reporton 2024 Office Visit Report Normal [facility] Thyroid Stim Hormone (TSH)on 02-25-2025 TSH 0.573 uIU/mL Normal 0.300-4.200 [facility] Comment on above: Performed By: #### L 506.1001, L501.9985, L100.0100, L501.9520 ####[facility] [address] [place], [address] Vitamin D,25 Hydroxyon 02-25 Vitamin D 25-OH 88.7 ng/mL Normal 30-100 [facility] Comment on above: Result Comment: Paty min D StatusDeficiency: <20 ng/mL (50nmol/L)Insufficiency: 20-30 ng/mL (50-75 nmol/L)Sufficiency: 30-100 ng/mL (75-250 nmol/L)Toxicity: >100 ng/mL (>250 nmol/L) Performed By: #### L 506.1001, L501.9985, L100.0100, L501.9520 ####[facility] [address] [place], [address] Spine Lumbar without Contras ton 02-21-2025 Spine Lumbar without Contrast Normal [facility] 6 Minute Walk Teston 025 6 Minute Walk Test Normal [facility] 25(OH)D3 SerPl-mCncon 2024 25-hydroxyvitamin D3 [Mass/Vol] 91.5 ng/mL High 31.0-80.0 [facility] Comment on above: Order Comment: Speci men Type: BLOOD SPECIMEN Ordering Facility: [facility] Address: [address] [place] [address] Performed By: #### 1 6933-4, 51069-9, 5195-3 #### [facility] CLIA [id number] [address] [place] [address] [place] BLOOD TB SCREENon 02-11-2025 M. tuberculosis tuberculin stim IFN-g Ql (Bld) Negative Normal [facility] Comment on above: Order Comment: Speci [facility] Type: BLOOD SPECIMEN Ordering Facility: [facility] Address: [address] [place] [address] Performed By: #### I NFTBP #### [facility] CLIA [id number] [address] [place] [address] [place] MITOGEN MINUS NIL >9.98 Normal >=0.50 [facility] Comment on above: Order Comment: Speci men Type: BLOOD SPECIMEN Ordering Facility: [facility] Address: [address] [place] [address] Performed By: #### I NFTBP #### [facility] CLIA [id number] [place] TB GAMMA INTERPRETATION Infection with M. tuberculosis complex is unlikely. If latent tuberculosis infection is highly suspected, a negative result does not rule out the infection. Specimens from immunocompromised patients and those <5 years of age may show false negative results. In case of a contact investigation, please repeat 8-12 weeks after a known exposure. Normal [facility] Comment on above: Order Comment: Speci elpidio Type: BLOOD SPECIMEN Ordering Facility: [facility] Address: [address] [place] [address] Performed By: #### I NFTBP #### [facility] CLIA [id number] [address] [place] [address] OF [place] TB NIL 0.02 IU/mL Normal <=8.00 [facility] Comment on above: Order Comment: Pauly magallanes Type: BLOOD SPECIMEN Ordering Facility: [facility] Address: [address] [place] [address] Performed By: #### I NFTBP #### [facility] CLIA [id number] [address] [place] [address] [place] TB1 AG MINUS NIL 0.00 IU/mL Normal <0.35 [facility] Comment on above: Order Comment: Osmeli men Type: BLOOD SPECIMEN Ordering Facility: [facility] Address: [address] [place] [address] Performed By: #### I NFTBP #### [facility] CLIA [id number] [address] [place] [address] [place] TB2 AG MINUS NIL 0.00 IU/mL Normal <0.35 [facility] Comment on above: Order Comment: Osmeli elpidio Type: BLOOD SPECIMEN Ordering Facility: [facility] Address: [address] [place] [address] Performed By: #### I NFTBP #### [facility] CLIA [id number] [address] [place] [address] [place] CBC W Auto Differential pane l (Bld)on 02-11-2025 Basophils (Bld) [#/Vol] 0.07 10*3/uL Normal <0.11 [facility] [facility] Comment on above: Order Comment: Speci men Type: BLOOD SPECIMEN Ordering Facility: [facility] Address: [address] [place] [address] Performed By: #### 5 7021-8 #### [facility] CLIA [id number] [address] [place] [address] [place] Basophils/100 WBC (Bld) 0.9 % Normal [facility] Comment on above: Order Comment: Speci men Type: BLOOD SPECIMEN Ordering Facility: [facility] Address: [address] [place] [address] Performed By: #### 5 7021-8 #### [facility] CLIA [id number] [address] [place] [address] [place] Differential cell count method Nom (Bld) Auto Normal [facility] Comment on above: Order Comment: Speci men Type: BLOOD SPECIMEN Ordering Facility: [facility] Address: [address] [place] [address] Performed By: #### 5 7021-8 #### [facility] CLIA [id number] [address] [place] [address] [place] Eosinophils (Bld) [#/Vol] 0.28 10*3/uL Normal <0.46 [facility] Comment on above: Order Comment: Speci men Type: BLOOD SPECIMEN Ordering Facility: [facility] Address: [address] [place] [address] Performed By: #### 5 7021-8 #### [facility] CLIA [id number] [address] [place] [address] [place] Eosinophils/100 WBC (Bld) 3.7 % Normal [facility] Comment on above: Order Comment: Speci men Type: BLOOD SPECIMEN Ordering Facility: [facility] Address: [address] [place] [address] Performed By: #### 5 7021-8 #### [facility] CLIA [id number] [address] [place] [address] [place] Erythrocyte distribution width (RBC) [Ratio] 12.7 % Normal 11.5-15.0 [facility] Comment on above: Order Comment: Speci men Type: BLOOD SPECIMEN Ordering Facility: [facility] Address: [address] [place], [place] [address] Performed By: #### 5 7021-8 #### [facility] CLIA [id number] [address] [place] [address] [place] Hematocrit (Bld) [Volume fraction] 43.7 % Normal 36.0-46.0 [facility] Comment on above: Order Comment: Speci men Type: BLOOD SPECIMEN Ordering Facility: [facility] Address: [address] [place] [address] Performed By: #### 5 7021-8 #### [facility] CLIA [id number] [address] [place] [address] [place] Hemoglobin (Bld) [Mass/Vol] 13.8 g/dL Normal 11.5-15.5 [facility] Comment on above: Order Comment: Speci men Type: BLOOD SPECIMEN Ordering Facility: [facility] Address: [address] [place] [address] Performed By: #### 5 7021-8 #### [facility] CLIA [id number] [address] [place] [address] [place] Immature granulocytes (Bld) [#/Vol] 0.03 10*3/uL Normal <0.10 [facility] Comment on above: Order Comment: Speci men Type: BLOOD SPECIMEN Ordering Facility: [facility] Address: [address] [place], [place] [address] Performed By: #### 5 7021-8 #### [facility] CLIA [id number] [address] [place] [address] [place] Immature granulocytes/100 WBC (Bld) 0.4 % Normal [facility] Comment on above: Order Comment: Speci men Type: BLOOD SPECIMEN Ordering Facility: [facility] Address: [address] [place] [address] Performed By: #### 5 7021-8 #### [facility] CLIA [id number] [address] [place] [address] [place] Lymphocytes (Bld) [#/Vol] 2.66 10*3/uL Normal 1.00-4.00 [facility] Comment on above: Order Comment: Speci men Type: BLOOD SPECIMEN Ordering Facility: [facility] Address: [address] [place] [address] Performed By: #### 5 7021-8 #### [facility] CLIA [id number] [address] [place] [address] [place] Lymphocytes/100 WBC (Bld) 35.6 % Normal [facility] Comment on above: Order Comment: Speci men Type: BLOOD SPECIMEN Ordering Facility: [facility] Address: [address] [place] [address] Performed By: #### 5 7021-8 #### [facility] CLIA [id number] [address] [place] [address] [place] MCH (RBC) [Entitic mass] 29.4 pg Normal 26.0-34.0 [facility] Comment on above: Order Comment: Speci men Type: BLOOD SPECIMEN Ordering Facility: [facility] Address: [address] [place] [address] Performed By: #### 5 7021-8 #### [facility] CLIA [id number] [address] [place] [address] [place] MCHC (RBC) [Mass/Vol] 31.6 g/dL Normal 30.5-36.0 [facility] Comment on above: Order Comment: Speci men Type: BLOOD SPECIMEN Ordering Facility: [facility] Address: [address] [place] [address] Performed By: #### 5 7021-8 #### [facility] CLIA [id number] [address] [place] [address] [place] MCV (RBC) [Entitic vol] 93.2 fL Normal 80.0-100.0 [facility] Comment on above: Order Comment: Speci men Type: BLOOD SPECIMEN Ordering Facility: [facility] Address: [address] [place] [address] Performed By: #### 5 7021-8 #### [facility] CLIA [id number] [address] [place] [address] [place] Monocytes (Bld) [#/Vol] 0.60 10*3/uL Normal <0.87 [facility] Comment on above: Order Comment: Speci men Type: BLOOD SPECIMEN Ordering Facility: [facility] Address: [address] [place], [place] [address] Performed By: #### 5 7021-8 #### [facility] CLIA [id number] [address] [place] [address] [place] Monocytes/100 WBC (Bld) 8.0 % Normal [facility] Comment on above: Order Comment: Speci men Type: BLOOD SPECIMEN Ordering Facility: [facility] Address: [address] [place] [address] Performed By: #### 5 7021-8 #### [facility] CLIA [id number] [address] [place] [address] [place] Neutrophils (Bld) [#/Vol] 3.83 10*3/uL Normal 1.45-7.50 [facility] Comment on above: Order Comment: Speci men Type: BLOOD SPECIMEN Ordering Facility: [facility] Address: [address] [place] [address] Performed By: #### 5 7021-8 #### [facility] CLIA [id number] [address] [place] [address] [place] Neutrophils/100 WBC (Bld) 51.4 % Normal [facility] Comment on above: Order Comment: Speci men Type: BLOOD SPECIMEN Ordering Facility: [facility] Address: [address] [place] [address] Performed By: #### 5 7021-8 #### [facility] CLIA [id number] [address] [place] [address] [place] Nucleated RBC (Bld) [#/Vol] 10*3/uL Normal <0.01 [facility] Comment on above: Order Comment: Speci men Type: BLOOD SPECIMEN Ordering Facility: [facility] Address: [address] [place] [address] Performed By: #### 5 7021-8 #### [facility] CLIA [id number] [address] [place] [address] [place] Nucleated RBC/100 WBC (Bld) [Ratio] 0.0 /100 WBC Normal [facility] Comment on above: Order Comment: Speci men Type: BLOOD SPECIMEN Ordering Facility: [facility] Address: [address] [place] [address] Performed By: #### 5 7021-8 #### [facility] CLIA [id number] [address] [place] [address] [place] Platelet mean volume (Bld) [Entitic vol] 10.4 fL Normal 9.0-12.7 [facility] Comment on above: Order Comment: Speci men Type: BLOOD SPECIMEN Ordering Facility: [facility] Address: [address] [place] [address] Performed By: #### 5 7021-8 #### [facility] CLIA [id number] [address] [place] [address] [place] Platelets (Bld) [#/Vol] 252 10*3/uL Normal 150-400 [facility] Comment on above: Order Comment: Speci men Type: BLOOD SPECIMEN Ordering Facility: [facility] Address: [address] [place] [address] Performed By: #### 5 7021-8 #### [facility] CLIA [id number] [address] [place] [address] [place] RBC (Bld) [#/Vol] 4.69 10*6/uL Normal 3.90-5.20 [facility] Comment on above: Order Comment: Speci men Type: BLOOD SPECIMEN Ordering Facility: [facility] Address: [address] [place] [address] Performed By: #### 5 7021-8 #### [facility] CLIA [id number] [address] [place] [address] [place] WBC (Bld) [#/Vol] 7.47 10*3/uL Normal 3.70-11.00 [facility] Comment on above: Order Comment: Speci men Type: BLOOD SPECIMEN Ordering Facility: [facility] Address: [address] [place] [address] Performed By: #### 5 7021-8 #### [facility] CLIA [id number] [address] [place] [address] [place] CRP SerPl-mCncon 02-11-2025 CRP [Mass/Vol] mg/L Normal <0.9 [facility] Comment on above: Order Comment: Speci men Type: BLOOD SPECIMEN Ordering Facility: [facility] Address: [address] [place] [address] Performed By: #### 1 988-5 #### [facility] CLIA [id number] [address] [place] [address] [place] Comprehensive metabolic 2000 panelon 02-11-2025 Albumin [Mass/Vol] 4.5 g/dL Normal 3.9-4.9 [facility] Comment on above: Order Comment: Speci men Type: BLOOD SPECIMEN Ordering Facility: [facility] Address: [address] [place] [address] Performed By: #### 1 6933-4, 03469-1, 5194-3 #### [facility] CLIA [id number] [address] [place] [address] [place] ALP [Catalytic activity/Vol] 72 U/L Normal 34-123 [facility] Comment on above: Order Comment: Speci men Type: BLOOD SPECIMEN Ordering Facility: [facility] Address: [address] [place] [address] Performed By: #### 1 6933-4, 24634-7, 5194-3 #### [facility] CLIA [id number] [address] [place] [address] [place] ALT [Catalytic activity/Vol] 26 U/L Normal 7-38 [facility] Comment on above: Order Comment: Speci men Type: BLOOD SPECIMEN Ordering Facility: [facility] Address: [address] [place] [address] Performed By: #### 1 6933-4, 31433-0, 5194-3 #### [facility] CLIA [id number] [address] [place] [address] [place] Anion gap [Moles/Vol] 14 mmol/L Normal 8-15 [facility] Comment on above: Order Comment: Speci men Type: BLOOD SPECIMEN Ordering Facility: [facility] Address: [address] [place] [address] Performed By: #### 1 6933-4, 98356-7, 5194-3 #### [facility] CLIA [id number] [address] [place] [address] [place] AST [Catalytic activity/Vol] 24 U/L Normal 13-35 [facility] Comment on above: Order Comment: Speci men Type: BLOOD SPECIMEN Ordering Facility: [facility] Address: [address] [place] [address] Performed By: #### 1 6933-4, 30736-1, 5194-3 #### [facility] CLIA [id number] [address] [place] [address] [place] Bilirubin [Mass/Vol] 0.3 mg/dL Normal 0.2-1.3 [facility] Comment on above: Order Comment: Speci men Type: BLOOD SPECIMEN Ordering Facility: [facility] Address: [address] [place] [address] Performed By: #### 1 6933-4, 31952-2, 5194-3 #### [facility] CLIA [id number] [address] [place] [address] [place] Calcium [Mass/Vol] 9.8 mg/dL Normal 8.5-10.2 [facility] Comment on above: Order Comment: Speci men Type: BLOOD SPECIMEN Ordering Facility: [facility] Address: [address] [place] [address] Performed By: #### 1 6933-4, 99387-7, 5194-3 #### [facility] CLIA [id number] [address] [place] [address] [place] Chloride [Moles/Vol] 99 mmol/L Normal 98-107 [facility] Comment on above: Order Comment: Speci men Type: BLOOD SPECIMEN Ordering Facility: [facility] Address: [address] [place], [place] [address] Performed By: #### 1 6933-4, 49240-3, 5194-3 #### [facility] CLIA [id number] [address] [place], [place] [address] [place] CO2 [Moles/Vol] 26 mmol/L Normal 22-30 [facility] Comment on above: Order Comment: Speci men Type: BLOOD SPECIMEN Ordering Facility: [facility] Address: [address] [place], [place] [address] Performed By: #### 1 6933-4, 45533-5, 5194-3 #### [facility] CLIA [id number] [address] [place] [address] [place] Creatinine [Mass/Vol] 0.84 mg/dL Normal 0.58-0.96 [facility] Comment on above: Order Comment: Pauly magallanes Type: BLOOD SPECIMEN Ordering Facility: [facility] Address: [address] [place] [address] Performed By: #### 1 6933-4, 52280-1, 5194-3 #### [facility] CLIA [id number] [address] [place] [address] [place] Creatinine and Glomerular filtration rate.predicted panel (S/P/Bld) 75 mL/min/1.73m??? Normal >=60 [facility] Comment on above: Order Comment: Pauly magallanes Type: BLOOD SPECIMEN Ordering Facility: [facility] Address: [address] [place] [address] Result Comment: Mariza mated Glomerular Filtration Rate (eGFR) is calculated using the 2020 CKD-EPI creatinine equation. This equation utilizes serum creatinine, sex, and age as parameters. The creatinine assay has traceable calibration to isotope dilution-mass spectrometry. Refer to KDIGO guidelines for clinical interpretation. In patients with unstable renal function, e.g. those with acute kidney injury, the eGFR may not accurately reflect actual GFR. Performed By: #### 1 6933-4, 34120-6, 3 #### [facility] CLIA [id number] [address] [place] [address] [place] Glucose [Mass/Vol] 86 mg/dL Normal 74-99 [facility] Comment on above: Order Comment: Pauly magallanes Type: BLOOD SPECIMEN Ordering Facility: [facility] Address: [address] [place] [address] Result Comment: The [place] [employer] (ADA) provides guidance for cutoff values for fasting glucose and random glucose. The ADA defines fasting as no caloric intake for at least 8 hours. Fasting plasma glucose results between 100 to 125 mg/dL indicate increased risk for diabetes (prediabetes). Fasting plasma glucose results greater than or equal to 126 mg/dL meet the criteria for diagnosis of diabetes. In the absence of unequivocal hyperglycemia, results should be confirmed by repeat testing. In a patient with classic symptoms of hyperglycemia or hyperglycemic crisis, random plasma glucose results greater than or equal to 200 mg/dL meet the criteria for diagnosis of diabetes. Reference: Standards of Medical Care in Diabetes 2016, [place] [employer]. Diabetes Care. 2016.39(Suppl 1). Performed By: #### 1 6933-4, 31448-3, 5-3 #### [facility] CLIA [id number] [address] [place] [address] [place] Potassium [Moles/Vol] 3.6 mmol/L Low 3.7-5.1 [facility] Comment on above: Order Comment: Speci men Type: BLOOD SPECIMEN Ordering Facility: [facility] Address: [address] [place] [address] Performed By: #### 1 6933-4, 55965-6, 5194-3 #### [facility] CLIA [id number] [address] [place] [address] [place] Protein [Mass/Vol] 7.2 g/dL Normal 6.3-8.0 [facility] Comment on above: Order Comment: Speci men Type: BLOOD SPECIMEN Ordering Facility: [facility] Address: [address] [place] [address] Performed By: #### 1 6933-4, 01899-6, 5194-3 #### [facility] CLIA [id number] [address] [place] [address] [place] Sodium [Moles/Vol] 139 mmol/L Normal 136-144 [facility] Comment on above: Order Comment: Speci men Type: BLOOD SPECIMEN Ordering Facility: [facility] Address: [address] [place] [address] Performed By: #### 1 6933-4, 60791-3, 5194-3 #### [facility] CLIA [id number] [address] [place], [place] [address] [place] Urea nitrogen [Mass/Vol] 22 mg/dL High 7-21 [facility] Comment on above: Order Comment: Speci men Type: BLOOD SPECIMEN Ordering Facility: [facility] Address: [address] [place] [address] Performed By: #### 1 6933-4, 13874-8, 5194-3 #### [facility] CLIA [id number] [address] [place] [address] [place] ESR Westergren method (Bld) [Velocity]on 02-11-2025 ESR (Bld) [Velocity] 2 mm/h Normal 0-20 [facility] Comment on above: Order Comment: Pauly magallanes Type: BLOOD SPECIMEN Ordering Facility: [facility] Address: [address] [place] [address] Performed By: #### 1 6933-4, 78215-7, 5194-3 #### [facility] CLIA [id number] [address] [place] [address] [place] HBV core Ab Ser Qlon 025 HBV core Ab Ql (S) Negative Normal Negative [facility] Comment on above: Order Comment: Pauly magallanes Type: BLOOD SPECIMEN Ordering Facility: [facility] Address: [address] [place] [address] Result Comment: No e vidence of current or past infection with Hepatitis B virus. Should recent infection be suspected, repeat testing may be considered 3-4 weeks after this draw. Performed By: #### 1 6933-4, 86276-2, 5-3 #### [facility] CLIA [id number] [address] [place] [address] [place] HBV surface Ab Ql (S)on 02-02 HBV surface Ab Qn (S) <8.00 Normal [facility] Comment on above: Order Comment: Speci elpidio Type: BLOOD SPECIMEN Ordering Facility: [facility] Address: [address] [place] [address] Result Comment: <8 m IU/mL: No serological evidence of immunity to Hepatitis B Virus. >/= 8 to <12 mIU/mL: No serological evidence of immunity to Hepatitis B Virus. >/= 12 mIU/mL: Consistent with serological evidence of immunity to Hepatitis B Virus. Performed By: #### 1 6933-4, 85969-5, 5-3 #### [facility] CLIA [id number] [address] [place] [address] [place] HBV surface Ab Ser Qlon 02-02 HBV surface Ab Ql (S) Negative Normal [facility] Comment on above: Order Comment: Speci men Type: BLOOD SPECIMEN Ordering Facility: [facility] Address: [address] [place] [address] Result Comment: No s erological evidence of immunity to Hepatitis B Virus. Performed By: #### 1 6933-4, 36321-3, 5194-3 #### [facility] CLIA [id number] [address] [place] [address] [place] HBV surface Ag Ser Qlon 02-02 HBV surface Ag Ql (S) Negative Normal Negative [facility] Comment on above: Order Comment: Pauly magallanes Type: BLOOD SPECIMEN Ordering Facility: [facility] Address: [address] [place] [address] Performed By: #### 1 6933-4, 30073-5, 5194-3 #### [facility] CLIA [id number] [address] [place] [address] [place] HCV Ab Ser Qlon 02-11-2025 HCV Ab Ql (S) Negative Normal Negative [facility] Comment on above: Order Comment: Osmeli elpidio Type: BLOOD SPECIMEN Ordering Facility: [facility] Address: [address] [place] [address] Result Comment: The result suggests no evidence of infection with Hepatitis C virus. Should recent infection be suspected, repeat testing may be considered 4-6 weeks after this draw. Performed By: #### 1 6128-1 #### [facility] CLIA [id number] [address] [place] [address] [place] Pulmonary Visit Reporton Pulmonary Visit Report Normal [facility] Basic Metabolic Profile (BMP )on 02-06-2025 BUN/CRE 30.1 RATIO High 10-20 [facility] Comment on above: Performed By: #### L 500.2500 ####[facility] [address] [place], [address] Calcium [Mass/Vol] 10.0 mg/dL Normal 7.6-11.0 [facility] Comment on above: Performed By: #### L 500.2500 ####[facility] [address] [place], [address] Chloride [Moles/Vol] 103 mmol/L Normal 98-108 [facility] Comment on above: Performed By: #### L 500.2500 ####[facility] [address] [place], [address] CO2 [Moles/Vol] 27.2 mmol/L Normal 21.0-32.0 [facility] Comment on above: Performed By: #### L 500.2500 ####[facility] [address] [place], [address] Creatinine [Mass/Vol] 0.94 mg/dL Normal 0.70-1.20 [facility] Comment on above: Performed By: #### L 500.2500 ####[facility] [address] [place], [address] GAP 11 Normal 5-15 [facility] Comment on above: Performed By: #### L 500.2500 ####[facility] [address] [place], [address] GFR/1.73 sq M.predicted among non-blacks MDRD (S/P/Bld) [Vol rate/Area] 65 mL/min/{1.73_m2} Normal >60 [facility] Comment on above: Result Comment: mL/m in/1.73m2 CKD-EPI Creatinine Equation (2020) Performed By: #### L 500.2500 ####[facility] [address] [place], [address] Glucose [Mass/Vol] 103 mg/dL High 70-99 [facility] Comment on above: Performed By: #### L 500.2500 ####[facility] [address] [place], [address] Potassium [Moles/Vol] 4.5 mmol/L Normal 3.3-5.1 [facility] Comment on above: Performed By: #### L 500.2500 ####[facility] [address] [place], [address] Sodium [Moles/Vol] 141 mmol/L Normal 133-145 [facility] Comment on above: Performed By: #### L 500.2500 ####[facility] [address] [place], [address] Urea nitrogen [Mass/Vol] 28 mg/dL High 4-19 [facility] Comment on above: Performed By: #### L 500.2500 ####[facility] [address] [place], [address] OT D/C Summaryon 02-04-2025 OT D/C Summary Normal [facility] Low Dose CT Lung Screeningon 01-30-[address] Lung Screening Normal [facility] L/S Spine Min 4 Viewson 01-03 L/S Spine Min 4 Views Normal [facility] Orthopedic Visit Reporton Orthopedic Visit Report Normal [facility] Renal Artery Duplex Ultrasou ndon 01-24-2025 Renal Artery Duplex Ultrasound Normal [facility] Office Visit Reporton 2024 Office Visit Report Normal [facility] Inital Evaluation (1) - PTon 01-22-2025 Inital Evaluation (1) - PT Normal [facility] Orthopedic Visit Reporton Orthopedic Visit Report Normal [facility] Vitamin D 1,25-Dihydroxyon 0 01-18-2025 VIT D 1,25 DIHY 25.9 pg/mL Normal 24.8-81.5 [facility] Comment on above: Result Comment: Perf ormed at: BN - [facility] [address] [place], [place] [id number] Director: Dereck Buchanan MD, Phone: [phone] Performed By: #### L 3300.0960 ####[facility] [address] [place], [address] Upper Ext Joint Only(Routine )on 01-15-2025 Upper Ext Joint Only(Routine) Normal [facility] Neurology Visit Reporton Neurology Visit Report Normal [facility] Basic Metabolic Profile (BMP )on 01-07-2025 BUN/CRE 21.3 RATIO High 10-20 [facility] Comment on above: Performed By: #### L 500.2500 ####[facility] [address] [place], [address] Calcium [Mass/Vol] 9.9 mg/dL Normal 7.6-11.0 [facility] Comment on above: Performed By: #### L 500.2500 ####[facility] [address] [place], [address] Chloride [Moles/Vol] 103 mmol/L Normal 98-108 [facility] Comment on above: Performed By: #### L 500.2500 ####[facility] [address] [place], [address] CO2 [Moles/Vol] 27.7 mmol/L Normal 21.0-32.0 [facility] Comment on above: Performed By: #### L 500.2500 ####[facility] [address] [place], [address] Creatinine [Mass/Vol] 0.92 mg/dL Normal 0.70-1.20 [facility] Comment on above: Performed By: #### L 500.2500 ####[facility] [address] [place], [address] GAP 11 Normal 5-15 [facility] Comment on above: Performed By: #### L 500.2500 ####[facility] [address] [place], [address] GFR/1.73 sq M.predicted among non-blacks MDRD (S/P/Bld) [Vol rate/Area] 67 mL/min/{1.73_m2} Normal >60 [facility] Comment on above: Result Comment: mL/m in/1.73m2 CKD-EPI Creatinine Equation (2020) Performed By: #### L 500.2500 ####[facility] [address] [place], [address] Glucose [Mass/Vol] 92 mg/dL Normal 70-99 [facility] Comment on above: Performed By: #### L 500.2500 ####[facility] [address] [place], [address] Potassium [Moles/Vol] 4.0 mmol/L Normal 3.3-5.1 [facility] Comment on above: Performed By: #### L 500.2500 ####[facility] [address] [place], [address] Sodium [Moles/Vol] 141 mmol/L Normal 133-145 [facility] Comment on above: Performed By: #### L 500.2500 ####[facility] [address] [place], [address] Urea nitrogen [Mass/Vol] 20 mg/dL High 4-19 [facility] Comment on above: Performed By: #### L 500.2500 ####[facility] [address] [place], [address] OT General Evaluationon 05-0 OT General Evaluation Normal [facility] CRPon 04-30-2025 C-REACTIVE PROT < 3.00 Normal 0.0-3.0 [facility] Comment on above: Performed By: #### L 101.9900, L501.6710 ####[facility] [address] [place], [address] Erythrocyte Sed Rateon 01-01 SED RATE 4 mm/hr Normal 0-30 [facility] Comment on above: Performed By: #### L 101.9900, L501.6710 ####[facility] [address] [place], [address] Basic Metabolic Profile (BMP )on 12-29-2024 BUN/CRE 17.5 RATIO Normal 10-20 [facility] Comment on above: Performed By: #### L 500.2500, L100.0100 ####[facility] [address] [place], [address] Calcium [Mass/Vol] 10.4 mg/dL Normal 7.6-11.0 [facility] Comment on above: Performed By: #### L 500.2500, L100.0100 ####[facility] [address] [place], [address] Chloride [Moles/Vol] 102 mmol/L Normal 98-108 [facility] Comment on above: Performed By: #### L 500.2500, L100.0100 ####[facility] [address] [place], [address] CO2 [Moles/Vol] 28.3 mmol/L Normal 21.0-32.0 [facility] Comment on above: Performed By: #### L 500.2500, L100.0100 ####[facility] [address] [place], [address] Creatinine [Mass/Vol] 1.00 mg/dL Normal 0.70-1.20 [facility] Comment on above: Performed By: #### L 500.2500, L100.0100 ####[facility] [address] [place], [address] ECRCL 41.45 ml/min Low 50-250 [facility] Comment on above: Performed By: #### L 500.2500, L100.0100 ####[facility] [address] [place], [address] GAP 12 Normal 5-15 [facility] Comment on above: Performed By: #### L 500.2500, L100.0100 ####[facility] [address] [place], [address] GFR/1.73 sq M.predicted among non-blacks MDRD (S/P/Bld) [Vol rate/Area] 61 mL/min/{1.73_m2} Normal >60 [facility] Comment on above: Result Comment: mL/m in/1.73m2 CKD-EPI Creatinine Equation (2020) Performed By: #### L 500.2500, L100.0100 ####[facility] [address] [place], [address] Glucose [Mass/Vol] 100 mg/dL High 70-99 [facility] Comment on above: Performed By: #### L 500.2500, L100.0100 ####[facility] [address] [place], [address] Potassium [Moles/Vol] 4.0 mmol/L Normal 3.3-5.1 [facility] Comment on above: Performed By: #### L 500.2500, L100.0100 ####[facility] [address] [place], [address] Sodium [Moles/Vol] 142 mmol/L Normal 133-145 [facility] Comment on above: Performed By: #### L 500.2500, L100.0100 ####[facility] [address] [place], [address] Urea nitrogen [Mass/Vol] 18 mg/dL Normal 4-19 [facility] Comment on above: Performed By: #### L 500.2500, L100.0100 ####[facility] [address] [place], [address] CBC W/Diff, Automatedon 04-2 Absolute Lymph 1.72 X10 3/uL Normal 0.83-4.51 [facility] Comment on above: Performed By: #### L 500.2500, L100.0100 ####[facility] [address] [place], [address] Absolute Neut 3.4 X10 3/uL Normal 2.0-7.7 [facility] Comment on above: Performed By: #### L 500.2500, L100.0100 ####[facility] [address], [address] Basophils/100 WBC (Bld) 1.5 % High 0-1 [facility] Comment on above: Performed By: #### L 500.2500, L100.0100 ####[facility] [address] [place], [address] Eosinophils/100 WBC (Bld) 10.6 % High 0-5 [facility] Comment on above: Performed By: #### L 500.2500, L100.0100 ####[facility] [address] [place], [address] Erythrocyte distribution width (RBC) [Ratio] 13.4 % Normal 11.6-14.6 [facility] Comment on above: Performed By: #### L 500.2500, L100.0100 ####[facility] [address] [place], [address] Hematocrit (Bld) [Volume fraction] 45.2 % Normal 37-47 [facility] Comment on above: Performed By: #### L 500.2500, L100.0100 ####[facility] [address] [place], [address] Hemoglobin (Bld) [Mass/Vol] 14.4 g/dL Normal 12.0-15.0 [facility] Comment on above: Performed By: #### L 500.2500, L100.0100 ####[facility] [address] [place], [address] IG% 0.200 Normal 0.0-0.9 [facility] Comment on above: Result Comment: IG% - Immature Granulocytes (promyelocytes, myelocytes andmetamyelocytes) > 1% indicates that a LEFT SHIFT is Present. Performed By: #### L 500.2500, L100.0100 ####[facility] [address] [place], [address] Lymphocytes/100 WBC (Bld) 26.5 % Normal 19-41 [facility] Comment on above: Performed By: #### L 500.2500, L100.0100 ####[facility] [address] [place], [address] MCH (RBC) [Entitic mass] 29.7 pg Normal 27.0-32.0 [facility] Comment on above: Performed By: #### L 500.2500, L100.0100 ####[facility] [address] [place], [address] MCHC (RBC) [Mass/Vol] 31.9 g/dL Low 32-36 [facility] Comment on above: Performed By: #### L 500.2500, L100.0100 ####[facility] [address] [place], [address] MCV (RBC) [Entitic vol] 93.2 fL Normal 81-99 [facility] Comment on above: Performed By: #### L 500.2500, L100.0100 ####[facility] [address] [place], [address] Monocytes/100 WBC (Bld) 8.8 % Normal 0-10 [facility] Comment on above: Performed By: #### L 500.2500, L100.0100 ####[facility] [address] [place], [address] Neutrophils/100 WBC (Bld) 52.4 % Normal 47-70 [facility] Comment on above: Performed By: #### L 500.2500, L100.0100 ####[facility] [address] [place], [address] Nucleated RBC (Bld) [#/Vol] 0 10*3/uL Normal 0-5 [facility] Comment on above: Performed By: #### L 500.2500, L100.0100 ####[facility] [address] [place], [address] Platelet mean volume (Bld) [Entitic vol] 10.8 fL Normal 6.2-12.0 [facility] Comment on above: Performed By: #### L 500.2500, L100.0100 ####[facility] [address] [place], [address] Platelets (Bld) [#/Vol] 230 10*3/uL Normal 150-450 [facility] Comment on above: Performed By: #### L 500.2500, L100.0100 ####[facility] [address] [place], [address] RBC (Bld) [#/Vol] 4.85 10*6/uL Normal 4.2-5.4 [facility] Comment on above: Performed By: #### L 500.2500, L100.0100 ####[facility] [address] [place], [address] RDW SD 45.3 fl High 35.1-43.9 [facility] Comment on above: Performed By: #### L 500.2500, L100.0100 ####[facility] [address] [place], [address] WBC (Bld) [#/Vol] 6.5 10*3/uL Normal 4.4-11.0 [facility] Comment on above: Performed By: #### L 500.2500, L100.0100 ####[facility] [address] 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 Patient's been checking it at home. Patient says she is also having blurred vision in the left eye and her head feels weird. In her words. At this time patient is being referred to the emergency room for more thorough evaluation. Patient agreeable to care plan. Patient says she has been getting 195/108 at home. Patient did recently change blood pressure medications. Friend will take her now. Allergies As of Date: 12/29/2024 Noted Allergy Reaction LATEX 11/08/2022 2 - Rash OXYCODONE 11/08/2022 14 - Other: See Comments Comments: unable to sleep PENICILLINS 11/01/2002 TESSALON PERLE (BENZONATATE) 05/03/2019 2 - Rash Date Reviewed: 12/05/2024 Reviewed by: Whit Jang MA - Fully Assessed Primary Visit Diagnosis:Blurred vision [H53.8] Prescriptions as of 12/29/2024 - alendronate (FOSAMAX) 70 mg tablet Take 70 mg by mouth one time a week. - aspirin 81 mg cap Take 1 capsule by mouth once daily. - REXULTI 1 mg tablet Take 1 mg by mouth daily at bedtime. - cyanocobalamin 1,000 mcg/mL Inject 1,000 mcg intramuscularly once every month. - desvenlafaxine ER (PRISTIQ) 100 mg 24 hr tablet Take 1 tablet by mouth once daily. - furosemide (LASIX) 20 mg tablet Take 20 mg by mouth every morning. - losartan (COZAAR) 100 mg tablet Take 1 tablet by mouth once daily. - meloxicam (MOBIC) 7.5 mg tablet Take 7.5 mg by mouth two times a day as needed. - methylphenidate (RITALIN) 10 mg tablet Take 10 mg by mouth. Take 1 tablet daily at 2:30 pm - methylphenidate CD (METADATE CD) 60 mg biphasic capsule Take 60 mg by mouth every morning. - omeprazole (PRILOSEC) 40 mg capsule Take 1 capsule by mouth once daily. - MIEBO, PF, 100 % drop - potassium chloride ER (KLOR-CON M10) 10 mEq tablet Take 1 tablet by mouth once daily. - pregabalin (LYRICA) 100 mg capsule Take 100 mg by mouth three times a day. - propranolol (INDERAL) 20 mg tablet Take 1 tablet by mouth every 12 hours. - tiZANidine (ZANAFLEX) 4 mg tablet Take 4 mg by mouth every 8 hours as needed. - amLODIPine (NORVASC) 10 mg tablet Take 10 mg by mouth once daily. - budesonide-formoterol (SYMBICORT) 80-4.5 mcg/actuation inhaler Inhale 2 puffs as instructed two times a day. - semaglutide (OZEMPIC SUBCUTANEOUS) Inject subcutaneously one time a week. - leflunomide (ARAVA) 20 mg tablet Take 1 tablet by mouth once daily. - albuterol (PROVENTIL) 2.5 mg /3 mL (0.083 %) nebulizer solution as needed for Wheezing/Shortness of Breath. - predniSONE (DELTASONE) 5 mg tablet as needed. For flare up of arthritis - acyclovir (ZOVIRAX) 400 mg tablet Take 400 mg by mouth. - calcium carbonate/vitamin D3 (CALCIUM 600 + D ORAL) Take by mouth. - cholecalciferol (VITAMIN D-3) 5,000 unit tab Take 5,000 Units by mouth once daily. - amphetamine-dextroamphetamin e XR (ADDERALL XR) 30 mg 24 hr capsule Take 30 mg by mouth once daily. - linaCLOtide (LINZESS) 72 mcg capsule Take 1 capsule by mouth once daily. Administer on an empty stomach. Swallow whole; DO NOT crush or chew. - pravastatin (PRAVACHOL) 40 mg tablet Take 40 mg by mouth once daily. - B Complex Vitamins capsule Take 1 capsule by mouth once daily. - NORVASC 10MG TABLET Take one(1) tablet daily. - MULTIVITAMIN TABLET Take one(1) tablet daily. 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] 05/03/2019 Former smoker [Z87.891] 05/03/2019 Neuropathy (HCC) [G62.9] 05/03/2019 History of ETOH abuse [F10.11] 05/03/2019 Anxiety and depression [F41.9, F32.A] 05/03/2019 Lumbosacral spondylosis without myelopathy [M47*05/07/2019 Spinal stenosis, lumbar region, without neuroge*05/07/2019 Lumbosacral radiculitis [M54.17] 05/21/2019 Encounter Status:Closed by JOSEFA SERNA on 12/29/24 Normal [facility] CTA Head AND Neck W/ Contras ton 12-29-2024 CTA Head AND Neck W/ Contrast Normal [facility] Emergency Department Summary on 12-29-2024 Emergency Department Summary Normal [facility] Orthopedic Visit Reporton Orthopedic Visit Report Normal [facility] Office Visit Reporton 2024 Office Visit Report Normal [facility] Orthopedic Visit Reporton Orthopedic Visit Report Normal [facility] Dexa Bone Density Studyon Dexa Bone Density Study Normal [facility] Spine Lumbar (Routine)on Spine Lumbar (Routine) Normal [facility] Orthopedic Visit Reporton Orthopedic Visit Report Normal [facility] CNOVon 12-05-2024 CNOV Office Visit ([facility] ) LELE PANG ([id number]) 1955 F Date Time Provider Department 12/05/24 11:00 AM WINNIE HERNANDEZ WS During your visit today, we recorded the following information about you: Pulse Blood pressure Weight Height 61/minute 146/95 57.5 kg 1.473 m Winnie Hernandez PA-C 12/05/2024 9:46 PM Signed Rheumatology CONSULTATION Date of Service: 12/05/2024 Patient: Lele Pang Medical Record: [id number] Primary Care Physician: Yady Vera MD Last Rheumatology visit: None at [facility] Referring Provider: Daron Hernandez [address] [facility] [address] Lele Pang is here today at request of Dr. Hernandez specifically for consultation of my opinion in regards to the chief complaint listed below. Correspondence will be shared today via the [facility] [employer] electronic health record or through regular mail, where applicable. History of Present Illness Lele is a 69-year-old female with a history of RA, presenting for evaluation and management. She is currently taking leflunomide. Lele is both RF - 34 (09/26/2023) and CCP positive. Pain Evaluation 05/21/2019 05/21/2019 05/21/2019 11/08/2022 11/25/2022 Pain Evaluation Pain Score 7 4 7 5 7 Location Back Hand Stitcher-Left Shoulder-Right Description Aching Aching Sore Radiating;Burning;Dull Duration (#) 5 1 Duration (Timeframe) Days Weeks Frequency Continuous Continuous Intervention Declined Medication Medication Medication;Heat;Cold Patient-Entered Data None today Review of Systems ROS RHEUMATOLOGYAll other reviewed and negative other than HPI. Past Medical History No past medical history on file. Past Surgical History PAST SURGICAL HISTORY Procedure Laterality Date CARPAL TUNNEL Bilateral HYSTERECTOMY HX LUMBAR SPINE FUSION COMBINED 02/2017 L4-S1 [facility] Dr[address] Arteaga PAST SURGICAL HISTORY OF Left foot surgery-hammertoe, bunionectomy PAST SURGICAL HISTORY OF trigger finger multiple fingers PAST SURGICAL HISTORY OF Bilateral Bone removed bilateral 5th toe PAST SURGICAL HISTORY OF Left Tendon release at the elbow ROTATOR CUFF REPAIR Bilateral Family History FAMILY HISTORY Problem Relation Age of Onset Alzheimer's Disease Mother Heart Attack Father Alcohol/Drug Father Diabetes Sister No Known Problems Brother Diabetes Sister No Known Problems Sister Social History Social History Tobacco Use Smoking status: Former Current packs/day: 0.50 Types: Cigarettes Smokeless tobacco: Current Tobacco comments: pt smoke half pack per day Vaping Use Vaping status: current everyday user Substances: Nicotine, Flavoring Substance Use Topics Alcohol use: Not Currently Comment: daily -none since 05/2022 Drug use: Never Current Medications Current Outpatient Medications Medication Sig alendronate (FOSAMAX) 70 mg tablet Take 70 mg by mouth one time a week. aspirin 81 mg cap Take 1 capsule by mouth once daily. REXULTI 1 mg tablet Take 1 mg by mouth daily at bedtime. cyanocobalamin 1,000 mcg/mL Inject 1,000 mcg intramuscularly once every month. desvenlafaxine ER (PRISTIQ) 100 mg 24 hr tablet Take 1 tablet by mouth once daily. furosemide (LASIX) 20 mg tablet Take 20 mg by mouth every morning. losartan (COZAAR) 100 mg tablet Take 1 tablet by mouth once daily. meloxicam (MOBIC) 7.5 mg tablet Take 7.5 mg by mouth two times a day as needed. methylphenidate (RITALIN) 10 mg tablet Take 10 mg by mouth. Take 1 tablet daily at 2:30 pm methylphenidate CD (METADATE CD) 60 mg biphasic capsule Take 60 mg by mouth every morning. omeprazole (PRILOSEC) 40 mg capsule Take 1 capsule by mouth once daily. MIEBO, PF, 100 % drop potassium chloride ER (KLOR-CON M10) 10 mEq tablet Take 1 tablet by mouth once daily. pregabalin (LYRICA) 100 mg capsule Take 100 mg by mouth three times a day. propranolol (INDERAL) 20 mg tablet Take 1 tablet by mouth every 12 hours. tiZANidine (ZANAFLEX) 4 mg tablet Take 4 mg by mouth every 8 hours as needed. amLODIPine (NORVASC) 10 mg tablet Take 10 mg by mouth once daily. budesonide-formoterol (SYMBICORT) 80-4.5 mcg/actuation inhaler Inhale 2 puffs as instructed two times a day. semaglutide (OZEMPIC SUBCUTANEOUS) Inject subcutaneously one time a week. predniSONE (DELTASONE) 5 mg tablet as needed. For flare up of arthritis acyclovir (ZOVIRAX) 400 mg tablet Take 400 mg by mouth. calcium carbonate/vitamin D3 (CALCIUM 600 + D ORAL) Take by mouth. linaCLOtide (LINZESS) 72 mcg capsule Take 1 capsule by mouth once daily. Administer on an empty stomach. Swallow whole; DO NOT crush or chew. leflunomide (ARAVA) 20 mg tablet Take 1 tablet by mouth once daily. albuterol (PROVENTIL) 2.5 mg /3 mL (0.083 %) nebulizer solution as needed for Wheezing/Shortness of Breath. cholecalciferol (VITAMIN D-3) 5,000 unit tab Take 5,000 Units by mouth once daily. am (more content not included)... Normal [facility] 12-05-2024 [facility] Telephone ([facility]) LELE PANG ([id number]) 1955 F Date Time Provider Department 12/05/[address] [facility] During your visit today, we recorded the following information about you: Whit Jang MA 12/05/2024 12:05 PM Signed Message left on [employer]Camp[employer]mail at [facility] for past records for this patient to be faxed to this office. Whit Jang MA 12/06/2024 2:49 PM Signed 109 pages of records received via fax from [facility]. Can be found under scanned documents. Winnie Hernandez PA-C 12/12/2024 5:16 PM Signed Reviewed most recent note from 2021. Will access older records as clinically indicated. She is otherwise stable on leflunomide Of note, she did have what was felt to be allergic reaction to methotrexate which was why it was discontinued (generalized jaylene, injection site reaction, skin discoloration) Winnie Hernandez PA-C Allergies As of Date: 12/05/2024 Noted Allergy Reaction LATEX 11/08/2022 2 - Rash OXYCODONE 11/08/2022 14 - Other: See Comments Comments: unable to sleep PENICILLINS 11/01/2002 TESSALON PERLE (BENZONATATE) 05/03/2019 2 - Rash Date Reviewed: 12/05/2024 Reviewed by: Whit Jang MA - Fully Assessed Reason for Visit: Request Outside Medical Records [[id number]] Prescriptions as of 12/12/2024 - alendronate (FOSAMAX) 70 mg tablet Take 70 mg by mouth one time a week. - aspirin 81 mg cap Take 1 capsule by mouth once daily. - REXULTI 1 mg tablet Take 1 mg by mouth daily at bedtime. - cyanocobalamin 1,000 mcg/mL Inject 1,000 mcg intramuscularly once every month. - desvenlafaxine ER (PRISTIQ) 100 mg 24 hr tablet Take 1 tablet by mouth once daily. - furosemide (LASIX) 20 mg tablet Take 20 mg by mouth every morning. - losartan (COZAAR) 100 mg tablet Take 1 tablet by mouth once daily. - meloxicam (MOBIC) 7.5 mg tablet Take 7.5 mg by mouth two times a day as needed. - methylphenidate (RITALIN) 10 mg tablet Take 10 mg by mouth. Take 1 tablet daily at 2:30 pm - methylphenidate CD (METADATE CD) 60 mg biphasic capsule Take 60 mg by mouth every morning. - omeprazole (PRILOSEC) 40 mg capsule Take 1 capsule by mouth once daily. - MIEBO, PF, 100 % drop - potassium chloride ER (KLOR-CON M10) 10 mEq tablet Take 1 tablet by mouth once daily. - pregabalin (LYRICA) 100 mg capsule Take 100 mg by mouth three times a day. - propranolol (INDERAL) 20 mg tablet Take 1 tablet by mouth every 12 hours. - tiZANidine (ZANAFLEX) 4 mg tablet Take 4 mg by mouth every 8 hours as needed. - amLODIPine (NORVASC) 10 mg tablet Take 10 mg by mouth once daily. - budesonide-formoterol (SYMBICORT) 80-4.5 mcg/actuation inhaler Inhale 2 puffs as instructed two times a day. - semaglutide (OZEMPIC SUBCUTANEOUS) Inject subcutaneously one time a week. - leflunomide (ARAVA) 20 mg tablet Take 1 tablet by mouth once daily. - albuterol (PROVENTIL) 2.5 mg /3 mL (0.083 %) nebulizer solution as needed for Wheezing/Shortness of Breath. - predniSONE (DELTASONE) 5 mg tablet as needed. For flare up of arthritis - acyclovir (ZOVIRAX) 400 mg tablet Take 400 mg by mouth. - calcium carbonate/vitamin D3 (CALCIUM 600 + D ORAL) Take by mouth. - cholecalciferol (VITAMIN D-3) 5,000 unit tab Take 5,000 Units by mouth once daily. - amphetamine-dextroamphetamin e XR (ADDERALL XR) 30 mg 24 hr capsule Take 30 mg by mouth once daily. - linaCLOtide (LINZESS) 72 mcg capsule Take 1 capsule by mouth once daily. Administer on an empty stomach. Swallow whole; DO NOT crush or chew. - pravastatin (PRAVACHOL) 40 mg tablet Take 40 mg by mouth once daily. - B Complex Vitamins capsule Take 1 capsule by mouth once daily. - NORVASC 10MG TABLET Take one(1) tablet daily. - MULTIVITAMIN TABLET Take one(1) tablet daily. 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] 05/03/2019 Former smoker [Z87.891] 05/03/2019 Neuropathy (HCC) [G62.9] 05/03/2019 History of ETOH abuse [F10.11] 05/03/2019 Anxiety and depression [F41.9, F32.A] 05/03/2019 Lumbosacral spondylosis without myelopathy [M47*05/07/2019 Spinal stenosis, lumbar region, without neuroge*05/07/2019 Lumbosacral radiculitis [M54.17] 05/21/2019 Encounter Status:Closed by WHIT JANG on 12/06/24 Normal [facility] Discharge Instructionon 11-03 Discharge Instruction Normal [facility] MR/POSTOP.ANEon 11-26-2024 MR/POSTOP.ANE Normal [facility] MR/[id number] 11-26-2024 MR/POSTOPAN2 Normal [facility] Operative Reporton Operative Report Normal [facility] Orthopedic Visit Reporton Orthopedic Visit Report Normal [facility] Shoulder min 2 Viewson 11-19 Shoulder min 2 Views Normal [facility] Lumbar Spine 2 or 3 Viewson 11-13-2024 Lumbar Spine 2 or 3 Views Normal [facility] Orthopedic Visit Reporton Orthopedic Visit Report Normal [facility] MR/PAT.ANEon 11-12-2024 MR/PAT.ANE Normal [facility] STAR Comprehensive Panelon ANTI-DNA (DS)AB <1 Normal 0-9 [facility] Comment on above: Result Comment: Nega tive <5 Equivocal 5 - 9 Positive >9 Performed By: #### L 101.9900, L500.4100, L500.4050, L4600.0100, L3100.7870, L505.7010, L3100.5440 ####[facility] [address] [place], [place], [phone] ANTISCLERODERM <0.2 Normal 0.0-0.9 [facility] Comment on above: Performed By: #### L 101.9900, L500.4100, L500.4050, L4600.0100, L3100.7870, L505.7010, L3100.5440 ####[facility] [address] [place], [place], [phone] CCP IgG Antibodieson 025 CCP IgG Ab. > 250 High 0-19 [facility] Comment on above: Result Comment: Nega tive <20 Weak positive 20 - 39 Moderate positive 40 - 59 Strong positive >59Performed at: [facility] [address] [id number] Director: Fady Alfaro PhD, Phone: [phone] Performed By: #### L 101.9900, L500.4100, L500.4050, L4600.0100, L3100.7870, L505.7010, L3100.5440 ####[facility] [address] [place], [place], [phone] CRP, High Sensitivity [id number] on 10-25-2024 CRP, HIGH SENS 0.36 mg/L Normal 0.00-3.00 [facility] Comment on above: Result Comment: Rela tive Risk for Future Cardiovascular Event Low <1.00 Average 1.00 - 3.00 High >3.00Performed at: [facility] [address] [id number] Director: Fady Alfaro PhD, Phone: [phone] Performed By: #### L 101.9900, L500.4100, L500.4050, L4600.0100, L3100.7870, L505.7010, L3100.5440 ####[facility] [address] [place], [place], [phone] Neurology Visit Reporton Neurology Visit Report Normal [facility] Comprehensive Metabolic Prof ilon 10-23-2024 Albumin [Mass/Vol] 3.8 g/dL Normal 3.2-5.0 [facility] Comment on above: Performed By: #### L 101.9900, L500.4100, L500.4050, L4600.0100, L3100.7870, L505.7010, L3100.5440 ####[facility] [address] [place], [address] Albumin/Globulin [Mass ratio] 1.1 {ratio} Normal 0.9-2.4 [facility] Comment on above: Performed By: #### L 101.9900, L500.4100, L500.4050, L4600.0100, L3100.7870, L505.7010, L3100.5440 ####[facility] [address] [place], [address] ALK P 71 U/L Normal 45-117 [facility] Comment on above: Performed By: #### L 101.9900, L500.4100, L500.4050, L4600.0100, L3100.7870, L505.7010, L3100.5440 ####[facility] [address] [place], [address] ALT [Catalytic activity/Vol] 38 U/L Normal 13-56 [facility] Comment on above: Performed By: #### L 101.9900, L500.4100, L500.4050, L4600.0100, L3100.7870, L505.7010, L3100.5440 ####[facility] [address] [place], [address] AST [Catalytic activity/Vol] 20 U/L Normal 15-37 [facility] Comment on above: Performed By: #### L 101.9900, L500.4100, L500.4050, L4600.0100, L3100.7870, L505.7010, L3100.5440 ####[facility] [address] [place], [address] Bilirubin [Mass/Vol] 0.50 mg/dL Normal 0.20-1.00 [facility] Comment on above: Result Comment: For patients on eltrombopag therapy, use of Dimension Squires TBIL is not recommended. Performed By: #### L 101.9900, L500.4100, L500.4050, L4600.0100, L3100.7870, L505.7010, L3100.5440 ####[facility] [address] [place], [address] BUN/CRE 24.9 RATIO High 10-20 [facility] Comment on above: Performed By: #### L 101.9900, L500.4100, L500.4050, L4600.0100, L3100.7870, L505.7010, L3100.5440 ####[facility] [address] [place], [address] CA,Total 9.4 mg/dL Normal 8.5-10.1 [facility] Comment on above: Performed By: #### L 101.9900, L500.4100, L500.4050, L4600.0100, L3100.7870, L505.7010, L3100.5440 ####[facility] [address] [place], [address] Chloride [Moles/Vol] 106 mmol/L Normal 98-107 [facility] Comment on above: Performed By: #### L 101.9900, L500.4100, L500.4050, L4600.0100, L3100.7870, L505.7010, L3100.5440 ####[facility] [address] [place], [address] CO2 [Moles/Vol] 26.0 mmol/L Normal 21.0-32.0 [facility] Comment on above: Performed By: #### L 101.9900, L500.4100, L500.4050, L4600.0100, L3100.7870, L505.7010, L3100.5440 ####[facility] [address] [place], [place], [phone] Creatinine [Mass/Vol] 0.92 mg/dL Normal 0.55-1.02 [facility] Comment on above: Result Comment: The validity of the calculated GFR GFRAA in patients over70 years has not been determined. Clinical correlation isessential. Performed By: #### L 101.9900, L500.4100, L500.4050, L4600.0100, L3100.7870, L505.7010, L3100.5440 ####[facility] [address] [place], [address] EST GFR - AA 77 mL/min Normal >60 [facility] Comment on above: Result Comment: Afri can Surinamese GFR Calc Performed By: #### L 101.9900, L500.4100, L500.4050, L4600.0100, L3100.7870, L505.7010, L3100.5440 ####[facility] [address] [place], [place], [phone] GAP 8 Normal 5-15 [facility] Comment on above: Performed By: #### L 101.9900, L500.4100, L500.4050, L4600.0100, L3100.7870, L505.7010, L3100.5440 ####[facility] [address] [place], [place], [phone] GFR/1.73 sq M.predicted among non-blacks MDRD (S/P/Bld) [Vol rate/Area] 64 mL/min/{1.73_m2} Normal >60 [facility] Comment on above: Result Comment: Non- GFR Calc Performed By: #### L 101.9900, L500.4100, L500.4050, L4600.0100, L3100.7870, L505.7010, L3100.5440 ####[facility] [address] [place], [phone] Globulin (S) [Mass/Vol] 3.4 g/dL Normal 2.2-4.2 [facility] Comment on above: Performed By: #### L 101.9900, L500.4100, L500.4050, L4600.0100, L3100.7870, L505.7010, L3100.5440 ####[facility] [address] [place], [address] Glucose [Mass/Vol] 91 mg/dL Normal 74-106 [facility] Comment on above: Performed By: #### L 101.9900, L500.4100, L500.4050, L4600.0100, L3100.7870, L505.7010, L3100.5440 ####[facility] [address] [place], [address] Potassium [Moles/Vol] 3.7 mmol/L Normal 3.5-5.1 [facility] Comment on above: Performed By: #### L 101.9900, L500.4100, L500.4050, L4600.0100, L3100.7870, L505.7010, L3100.5440 ####[facility] [address] [place], [address] Sodium [Moles/Vol] 140 mmol/L Normal 136-145 [facility] Comment on above: Performed By: #### L 101.9900, L500.4100, L500.4050, L4600.0100, L3100.7870, L505.7010, L3100.5440 ####[facility] [address] [place], [address] T PROT 7.2 g/dL Normal 6.4-8.2 [facility] Comment on above: Performed By: #### L 101.9900, L500.4100, L500.4050, L4600.0100, L3100.7870, L505.7010, L3100.5440 ####[facility] [address] [place], [address] Urea nitrogen [Mass/Vol] 23 mg/dL High 7-18 [facility] Comment on above: Performed By: #### L 101.9900, L500.4100, L500.4050, L4600.0100, L3100.7870, L505.7010, L3100.5440 ####[facility] [address] [place], [address] Erythrocyte Sed Rateon 10-23 SED RATE 7 mm/hr Normal 0-30 [facility] Comment on above: Performed By: #### L 101.9900, L500.4100, L500.4050, L4600.0100, L3100.7870, L505.7010, L3100.5440 ####[facility] [address] [place], [place], [phone] Lipid Profileon 10-23-2024 Cholesterol [Mass/Vol] 250 mg/dL High 200 [facility] Comment on above: Result Comment: <200 mg/dL Desirable 200-240 mg/dL Borderline >240 mg/dL High Risk Performed By: #### L 101.9900, L500.4100, L500.4050, L4600.0100, L3100.7870, L505.7010, L3100.5440 ####[facility] [address] [place], [place], [phone] Cholesterol in HDL [Mass/Vol] 133 mg/dL Normal [facility] Comment on above: Result Comment: The drugs N-Acetylcysteine and Metamizole may falselydepress this assay. Reference Range HDL <40 mg/dL Low HDL Cholesterol HDL >or= 60 mg/dL High HDL Cholesterol Performed By: #### L 101.9900, L500.4100, L500.4050, L4600.0100, L3100.7870, L505.7010, L3100.5440 ####[facility] [address] [place], [address] Cholesterol in LDL [Mass/Vol] 107 mg/dL Normal 0-130 [facility] Comment on above: Performed By: #### L 101.9900, L500.4100, L500.4050, L4600.0100, L3100.7870, L505.7010, L3100.5440 ####[facility] [address] [place], [place], [phone] Cholesterol in VLDL [Mass/Vol] 10 mg/dL Normal 5-40 [facility] Comment on above: Performed By: #### L 101.9900, L500.4100, L500.4050, L4600.0100, L3100.7870, L505.7010, L3100.5440 ####[facility] [address] [place], [place], [phone] Triglyceride [Mass/Vol] 50 mg/dL Normal [facility] Comment on above: Result Comment: The drugs N-Acetylcysteine and Metamizole may falselydepress this assay.Serum Triglycerides Reference Interval Normal <150 mg/dL Borderline high 150 - 199 mg/dL High 200 - 499 mg/dL Very High > or = 500 mg/dL Performed By: #### L 101.9900, L500.4100, L500.4050, L4600.0100, L3100.7870, L505.7010, L3100.5440 ####[facility] [address] [place], [place], [phone] Rheumatoid Factoron 10-23-19 25 RHEUMATOID FAC 27.0 IU/mL High <15 [facility] Comment on above: Performed By: #### L 101.9900, L500.4100, L500.4050, L4600.0100, L3100.7870, L505.7010, L3100.5440 ####[facility] [address] [place], [place], [phone] Orthopedic Visit Reporton Orthopedic Visit Report Normal [facility] Office Visit Reporton 2024 Office Visit Report Normal [facility] Neurology Visit Reporton Neurology Visit Report Normal [facility] Vitamin B1, Thiamineon 07-29 VIT B1 THIAMINE 94.5 nmol/L Normal 66.5-200.0 [facility] Comment on above: Order Comment: Test( s) 441716-Edb. B1, Whole Bloodwas developed and its performance characteristicsdetermined by [facility]. It has not been cleared or approvedby the Food and Drug Administration. Result Comment: Perf ormed at: - [facility] [id number] Director: Dereck Buchanan MD, Phone: [phone] Performed By: #### L 506.0250, L501.9520, L500.4050, L506.1000, L100.0500, L503.0105, L3300.8000 ####[facility] [address] [place], [place], [phone] CBC-Complete Blood Cnt No Di ffon 07-25-2024 Erythrocyte distribution width (RBC) [Ratio] 13.1 % Normal 11.6-14.6 [facility] Comment on above: Order Comment: DR.BA CARCAMO ORDERED CBC,CMP,FOL,TSH,B12, B1SE ROBERTS ORDERED B12 VITD Performed By: #### L 506.0250, L501.9520, L500.4050, L506.1000, L100.0500, L503.0105, L3300.8000 ####[facility] [address] [place], [place], [phone] Hematocrit (Bld) [Volume fraction] 38.6 % Normal 37-47 [facility] Comment on above: Order Comment: DR.BA CARCAMO ORDERED CBC,CMP,FOL,TSH,B12, B1SE ROBERTS ORDERED B12 VITD Performed By: #### L 506.0250, L501.9520, L500.4050, L506.1000, L100.0500, L503.0105, L3300.8000 ####[facility] [address] [place], [address] Hemoglobin (Bld) [Mass/Vol] 12.2 g/dL Normal 12.0-15.0 [facility] Comment on above: Order Comment: DR.BA CARCAMO ORDERED CBC,CMP,FOL,TSH,B12, B1MARK ROBERTS ORDERED B12 VITD Performed By: #### L 506.0250, L501.9520, L500.4050, L506.1000, L100.0500, L503.0105, L3300.8000 ####[facility] [address] [place], [address] MCH (RBC) [Entitic mass] 28.6 pg Normal 27.0-32.0 [facility] Comment on above: Order Comment: DR.BA CARCAMO ORDERED CBC,CMP,FOL,TSH,B12, B1MARK ROBERTS ORDERED B12 VITD Performed By: #### L 506.0250, L501.9520, L500.4050, L506.1000, L100.0500, L503.0105, L3300.8000 ####[facility] [address] [place], [address] MCHC (RBC) [Mass/Vol] 31.6 g/dL Low 32-36 [facility] Comment on above: Order Comment: DR.BA CARCAMO ORDERED CBC,CMP,FOL,TSH,B12, B1MARK ROBERTS ORDERED B12 VITD Performed By: #### L 506.0250, L501.9520, L500.4050, L506.1000, L100.0500, L503.0105, L3300.8000 ####[facility] [address] [place], [address] MCV (RBC) [Entitic vol] 90.6 fL Normal 81-99 [facility] Comment on above: Order Comment: DR.BA CARCAMO ORDERED CBC,CMP,FOL,TSH,B12, B1MARK ROBERTS ORDERED B12 VITD Performed By: #### L 506.0250, L501.9520, L500.4050, L506.1000, L100.0500, L503.0105, L3300.8000 ####[facility] [address] [place], [address] Platelet mean volume (Bld) [Entitic vol] 10.4 fL Normal 6.2-12.0 [facility] Comment on above: Order Comment: DR.BA CARCAMO ORDERED CBC,CMP,FOL,TSH,B12, B1MARK ROBERTS ORDERED B12 VITD Performed By: #### L 506.0250, L501.9520, L500.4050, L506.1000, L100.0500, L503.0105, L3300.8000 ####[facility] [address] [place], [address] Platelets (Bld) [#/Vol] 264 10*3/uL Normal 150-450 [facility] Comment on above: Order Comment: DR.BA CARCAMO ORDERED CBC,CMP,FOL,TSH,B12, B1MARK ROBERTS ORDERED B12 VITD Performed By: #### L 506.0250, L501.9520, L500.4050, L506.1000, L100.0500, L503.0105, L3300.8000 ####[facility] [address] [place], [address] RBC (Bld) [#/Vol] 4.26 10*6/uL Normal 4.2-5.4 [facility] Comment on above: Order Comment: DR.BA CARCAMO ORDERED CBC,CMP,FOL,TSH,B12, B1MARK ROBERTS ORDERED B12 VITD Performed By: #### L 506.0250, L501.9520, L500.4050, L506.1000, L100.0500, L503.0105, L3300.8000 ####[facility] [address] [place], [address] RDW SD 42.9 fl Normal 35.1-43.9 [facility] Comment on above: Order Comment: DR.BA CARCAMO ORDERED CBC,CMP,FOL,TSH,B12, B1MARK ROBERTS ORDERED B12 VITD Performed By: #### L 506.0250, L501.9520, L500.4050, L506.1000, L100.0500, L503.0105, L3300.8000 ####[facility] [address] [place], [address] WBC (Bld) [#/Vol] 5.1 10*3/uL Normal 4.4-11.0 [facility] Comment on above: Order Comment: DR.BA CARCAMO ORDERED CBC,CMP,FOL,TSH,B12, B1MARK ROBERTS ORDERED B12 VITD Performed By: #### L 506.0250, L501.9520, L500.4050, L506.1000, L100.0500, L503.0105, L3300.8000 ####[facility] [address] [place], [address] Comprehensive Metabolic Prof ilon 07-25-2024 Albumin [Mass/Vol] 3.7 g/dL Normal 3.2-5.0 [facility] Comment on above: Order Comment: DR.BA CARCAMO ORDERED CBC,CMP,FOL,TSH,B12, B1MARK ROBERTS ORDERED B12 VITDN Performed By: #### L 506.0250, L501.9520, L500.4050, L506.1000, L100.0500, L503.0105, L3300.8000 ####[facility] [address] [place], [address] Albumin/Globulin [Mass ratio] 1.2 {ratio} Normal 0.9-2.4 [facility] Comment on above: Order Comment: DR.BA CARCAMO ORDERED CBC,CMP,FOL,TSH,B12, B1MARK ROBERTS ORDERED B12 VITDN Performed By: #### L 506.0250, L501.9520, L500.4050, L506.1000, L100.0500, L503.0105, L3300.8000 ####[facility] [address] [place], [address] ALK P 78 U/L Normal 45-117 [facility] Comment on above: Order Comment: DR.BA CARCAMO ORDERED CBC,CMP,FOL,TSH,B12, B1MARK ROBERTS ORDERED B12 VITDN Performed By: #### L 506.0250, L501.9520, L500.4050, L506.1000, L100.0500, L503.0105, L3300.8000 ####[facility] [address] [place], [address] ALT [Catalytic activity/Vol] 23 U/L Normal 13-56 [facility] Comment on above: Order Comment: DR.BA CARCAMO ORDERED CBC,CMP,FOL,TSH,B12, B1MARK ROBERTS ORDERED B12 VITDN Performed By: #### L 506.0250, L501.9520, L500.4050, L506.1000, L100.0500, L503.0105, L3300.8000 ####[facility] [address] [place], [address] AST [Catalytic activity/Vol] 19 U/L Normal 15-37 [facility] Comment on above: Order Comment: DR.BA CARCAMO ORDERED CBC,CMP,FOL,TSH,B12, B1MARK ROBERTS ORDERED B12 VITDN Performed By: #### L 506.0250, L501.9520, L500.4050, L506.1000, L100.0500, L503.0105, L3300.8000 ####[facility] [address] [place], [place], [id number] Bilirubin [Mass/Vol] 0.50 mg/dL Normal 0.20-1.00 [facility] Comment on above: Order Comment: DR.BA CARCAMO ORDERED CBC,CMP,FOL,TSH,B12, B1MARK ROBERTS ORDERED B12 VITDN Result Comment: For patients on eltrombopag therapy, use of Dimension Squires TBIL is not recommended. Performed By: #### L 506.0250, L501.9520, L500.4050, L506.1000, L100.0500, L503.0105, L3300.8000 ####[facility] [address] [place], [address] BUN/CRE 17.9 RATIO Normal 10-20 [facility] Comment on above: Order Comment: DR.BA CARCAMO ORDERED CBC,CMP,FOL,TSH,B12, B1MARK ROBERTS ORDERED B12 VITDN Performed By: #### L 506.0250, L501.9520, L500.4050, L506.1000, L100.0500, L503.0105, L3300.8000 ####[facility] [address] [place], [address] CA,Total 9.3 mg/dL Normal 8.5-10.1 [facility] Comment on above: Order Comment: DR.BA CARCAMO ORDERED CBC,CMP,FOL,TSH,B12, B1MARK ROBERTS ORDERED B12 VITDN Performed By: #### L 506.0250, L501.9520, L500.4050, L506.1000, L100.0500, L503.0105, L3300.8000 ####[facility] [address] [place], [address] Chloride [Moles/Vol] 107 mmol/L Normal 98-107 [facility] Comment on above: Order Comment: DR.BA CARCAMO ORDERED CBC,CMP,FOL,TSH,B12, B1MARK ROBERTS ORDERED B12 VITDN Performed By: #### L 506.0250, L501.9520, L500.4050, L506.1000, L100.0500, L503.0105, L3300.8000 ####[facility] [address] [place], [address] CO2 [Moles/Vol] 26.0 mmol/L Normal 21.0-32.0 [facility] Comment on above: Order Comment: DR.BA CARCAMO ORDERED CBC,CMP,FOL,TSH,B12, B1MARK ROBERTS ORDERED B12 VITDN Performed By: #### L 506.0250, L501.9520, L500.4050, L506.1000, L100.0500, L503.0105, L3300.8000 ####[facility] [address] [place], [address] Creatinine [Mass/Vol] 0.90 mg/dL Normal 0.55-1.02 [facility] Comment on above: Order Comment: DR.BA CARCAMO ORDERED CBC,CMP,FOL,TSH,B12, B1MARK ROBERTS ORDERED B12 VITDN Result Comment: The validity of the calculated GFR GFRAA in patients over70 years has not been determined. Clinical correlation isessential. Performed By: #### L 506.0250, L501.9520, L500.4050, L506.1000, L100.0500, L503.0105, L3300.8000 ####[facility] [address] [place], [address] EST GFR - AA 80 mL/min Normal >60 [facility] Comment on above: Order Comment: DR.BA CARCAMO ORDERED CBC,CMP,FOL,TSH,B12, B1MARK ROBERTS ORDERED B12 VITDN Result Comment: Afri can Surinamese GFR Calc Performed By: #### L 506.0250, L501.9520, L500.4050, L506.1000, L100.0500, L503.0105, L3300.8000 ####[facility] [address] [place], [address] GAP 6 Normal 5-15 [facility] Comment on above: Order Comment: DR.BA CARCAMO ORDERED CBC,CMP,FOL,TSH,B12, B1MARK ROBERTS ORDERED B12 VITDN Performed By: #### L 506.0250, L501.9520, L500.4050, L506.1000, L100.0500, L503.0105, L3300.8000 ####[facility] [address] [place], [address] GFR/1.73 sq M.predicted among non-blacks MDRD (S/P/Bld) [Vol rate/Area] 66 mL/min/{1.73_m2} Normal >60 [facility] Comment on above: Order Comment: DR.BA CARCAMO ORDERED CBC,CMP,FOL,TSH,B12, B1MARK ROBERTS ORDERED B12 VITDN Result Comment: Non- GFR Calc Performed By: #### L 506.0250, L501.9520, L500.4050, L506.1000, L100.0500, L503.0105, L3300.8000 ####[facility] [address] [place], [address] Globulin (S) [Mass/Vol] 3.2 g/dL Normal 2.2-4.2 [facility] Comment on above: Order Comment: DR.BA CARCAMO ORDERED CBC,CMP,FOL,TSH,B12, B1MARK ROBERTS ORDERED B12 VITDN Performed By: #### L 506.0250, L501.9520, L500.4050, L506.1000, L100.0500, L503.0105, L3300.8000 ####[facility] [address] [place], [address] Glucose [Mass/Vol] 105 mg/dL Normal 74-106 [facility] Comment on above: Order Comment: DR.BA CARCAMO ORDERED CBC,CMP,FOL,TSH,B12, B1MARK ROBERTS ORDERED B12 VITDN Result Comment: Fast ing Glucose result from 100 to 125 mg/dLsuggests IMPAIRED HOMEOSTASIS per A.D.A. criteria. Performed By: #### L 506.0250, L501.9520, L500.4050, L506.1000, L100.0500, L503.0105, L3300.8000 ####[facility] [address] [place], [address] Potassium [Moles/Vol] 3.4 mmol/L Low 3.5-5.1 [facility] Comment on above: Order Comment: DR.BA CARCAMO ORDERED CBC,CMP,FOL,TSH,B12, B1MARK ROBERTS ORDERED B12 VITDN Performed By: #### L 506.0250, L501.9520, L500.4050, L506.1000, L100.0500, L503.0105, L3300.8000 ####[facility] [address] [place], [address] Sodium [Moles/Vol] 139 mmol/L Normal 136-145 [facility] Comment on above: Order Comment: DR.BA CARCAMO ORDERED CBC,CMP,FOL,TSH,B12, B1MARK ROBERTS ORDERED B12 VITDN Performed By: #### L 506.0250, L501.9520, L500.4050, L506.1000, L100.0500, L503.0105, L3300.8000 ####[facility] [address] [place], [address] T PROT 6.9 g/dL Normal 6.4-8.2 [facility] Comment on above: Order Comment: DR.BA CARCAMO ORDERED CBC,CMP,FOL,TSH,B12, B1MARK ROBERTS ORDERED B12 VITDN Performed By: #### L 506.0250, L501.9520, L500.4050, L506.1000, L100.0500, L503.0105, L3300.8000 ####[facility] [address] [place], [address] Urea nitrogen [Mass/Vol] 16 mg/dL Normal 7-18 [facility] Comment on above: Order Comment: DR.BA CARCAMO ORDERED CBC,CMP,FOL,TSH,B12, B1MARK ROBERTS ORDERED B12 VITDN Performed By: #### L 506.0250, L501.9520, L500.4050, L506.1000, L100.0500, L503.0105, L3300.8000 ####[facility] [address] [place], [address] Folates, (Folic Acid)on 07-06 FOLATES > 100.00 High 3.1-55.4 [facility] Comment on above: Order Comment: DR.BA CARCAMO ORDERED CBC,CMP,FOL,TSH,B12, B1MARK ROBERTS ORDERED B12 VITDN Performed By: #### L 506.0250, L501.9520, L500.4050, L506.1000, L100.0500, L503.0105, L3300.8000 ####[facility] [address] [place], [address] Thoracic Spine 3 Viewson Thoracic Spine 3 Views Normal [facility] Thyroid Stim Hormone (TSH)on 07-25-2024 TSH 0.678 uIU/mL Normal 0.358-3.740 [facility] Comment on above: Order Comment: DR.BA CARCAMO ORDERED CBC,CMP,FOL,TSH,B12, B1MARK ROBERTS ORDERED B12 VITDN Performed By: #### L 506.0250, L501.9520, L500.4050, L506.1000, L100.0500, L503.0105, L3300.8000 ####[facility] [address] [place], [address] Vitamin B12on 07-25-2024 Cobalamin (Vitamin B12) [Mass/Vol] pg/mL High 211-911 [facility] Comment on above: Order Comment: DR.BA CARCAMO ORDERED CBC,CMP,FOL,TSH,B12, B1MARK ROBERTS ORDERED B12 VITD Performed By: #### L 506.0250, L501.9520, L500.4050, L506.1000, L100.0500, L503.0105, L3300.8000 ####[facility] [address] [place], [address] Vitamin D,25 Hydroxyon 07-25 Vitamin D 25-OH 103.8 ng/mL Normal [facility] Comment on above: Order Comment: DR.BA CARCAMO ORDERED CBC,CMP,FOL,TSH,B12, B1MARK ROBERTS ORDERED B12 VITD Result Comment: Paty min D 25(OH) Status Range Deficiency <20 ng/mL (50nmol/L) Insufficiency 20 - 30 ng/mL (50 - 75 nmol/L) Sufficiency 30 - 100 ng/mL (75 - 250 nmol/L) Toxicity >100 ng/mL (>250 nmol/L)Evidence suggests that patients undergoing fluorescein dyeangiography can retain small amounts of fluorescein in thebody for up to 48 to 72 hours post-treatment. In the casesof patients with renal insufficiency, retention could bemuch longer.Samples containing fluorescein can produce falsely elevatedvalues when tested with the Advia Centaur Vitamin D assay.With fluorescein interference, observed Vitamin D values canbe as high as >150 ng/mL (>375 nmol/L). Samples should beresubmitted post fluorescein clearance to ensure there is nointerference with Vitamin D test results. Performed By: #### L 506.0250, L501.9520, L500.4050, L506.1000, L100.0500, L503.0105, L3300.8000 ####[facility] [address] [place], [address] Neurology Visit Reporton Neurology Visit Report Normal [facility] L/S Spine Bending Flex/[place] 05-03-2024 L/S Spine Bending Flex/Ext Normal [facility] Orthopedic Visit Reporton Orthopedic Visit Report Normal [facility] CRP, High Sensitivity 800889 on 04-27-2024 CRP, HIGH SENS 0.86 mg/L Normal 0.00-3.00 [facility] Comment on above: Result Comment: Rela tive Risk for Future Cardiovascular Event Low <1.00 Average 1.00 - 3.00 High >3.00Performed at: - [address] [id number] Director: Fady Alfaro PhD, Phone: [phone] Performed By: #### L 100.0100, L501.9520, L500.4100, L500.4050, L101.9900, L3100.7870 ####[facility] [address] [place], [address] CBC W/Diff, Automatedon 04-05 Absolute Lymph 1.67 X10 3/uL Normal 0.83-4.51 [facility] Comment on above: Performed By: #### L 100.0100, L501.9520, L500.4100, L500.4050, L101.9900, L3100.7870 ####[facility] [address] [place], [address] Absolute Neut 3.1 X10 3/uL Normal 2.0-7.7 [facility] Comment on above: Performed By: #### L 100.0100, L501.9520, L500.4100, L500.4050, L101.9900, L3100.7870 ####[facility] [address] [place], [address] Basophils/100 WBC (Bld) 1.7 % High 0-1 [facility] Comment on above: Performed By: #### L 100.0100, L501.9520, L500.4100, L500.4050, L101.9900, L3100.7870 ####[facility] [address] [place], [address] Eosinophils/100 WBC (Bld) 10.9 % High 0-5 [facility] Comment on above: Performed By: #### L 100.0100, L501.9520, L500.4100, L500.4050, L101.9900, L3100.7870 ####[facility] [address] [place], [address] Erythrocyte distribution width (RBC) [Ratio] 13.1 % Normal 11.6-14.6 [facility] Comment on above: Performed By: #### L 100.0100, L501.9520, L500.4100, L500.4050, L101.9900, L3100.7870 ####[facility] [address] [place], [address] Hematocrit (Bld) [Volume fraction] 40.3 % Normal 37-47 [facility] Comment on above: Performed By: #### L 100.0100, L501.9520, L500.4100, L500.4050, L101.9900, L3100.7870 ####[facility] [address] [place], [address] Hemoglobin (Bld) [Mass/Vol] 12.4 g/dL Normal 12.0-15.0 [facility] Comment on above: Performed By: #### L 100.0100, L501.9520, L500.4100, L500.4050, L101.9900, L3100.7870 ####[facility] [address] [place], [address] IG% 0.200 Normal 0.0-0.9 [facility] Comment on above: Result Comment: IG% - Immature Granulocytes (promyelocytes, myelocytes andmetamyelocytes) > 1% indicates that a LEFT SHIFT is Present. Performed By: #### L 100.0100, L501.9520, L500.4100, L500.4050, L101.9900, L3100.7870 ####[facility] [address] [place], [address] Lymphocytes/100 WBC (Bld) 27.9 % Normal 19-41 [facility] Comment on above: Performed By: #### L 100.0100, L501.9520, L500.4100, L500.4050, L101.9900, L3100.7870 ####[facility] [address] [place], [address] MCH (RBC) [Entitic mass] 28.5 pg Normal 27.0-32.0 [facility] Comment on above: Performed By: #### L 100.0100, L501.9520, L500.4100, L500.4050, L101.9900, L3100.7870 ####[facility] [address] [place], [address] MCHC (RBC) [Mass/Vol] 30.8 g/dL Low 32-36 [facility] Comment on above: Performed By: #### L 100.0100, L501.9520, L500.4100, L500.4050, L101.9900, L3100.7870 ####[facility] [address] [place], [address] MCV (RBC) [Entitic vol] 92.6 fL Normal 81-99 [facility] Comment on above: Performed By: #### L 100.0100, L501.9520, L500.4100, L500.4050, L101.9900, L3100.7870 ####[facility] [address] [place], [address] Monocytes/100 WBC (Bld) 8.0 % Normal 0-10 [facility] Comment on above: Performed By: #### L 100.0100, L501.9520, L500.4100, L500.4050, L101.9900, L3100.7870 ####[facility] [address] [place], [address] Neutrophils/100 WBC (Bld) 51.3 % Normal 47-70 [facility] Comment on above: Performed By: #### L 100.0100, L501.9520, L500.4100, L500.4050, L101.9900, L3100.7870 ####[facility] [address] [place], [address] Nucleated RBC (Bld) [#/Vol] 0 10*3/uL Normal 0-5 [facility] Comment on above: Performed By: #### L 100.0100, L501.9520, L500.4100, L500.4050, L101.9900, L3100.7870 ####[facility] [address] [place], [address] Platelet mean volume (Bld) [Entitic vol] 10.5 fL Normal 6.2-12.0 [facility] Comment on above: Performed By: #### L 100.0100, L501.9520, L500.4100, L500.4050, L101.9900, L3100.7870 ####[facility] [address] [place], [address] Platelets (Bld) [#/Vol] 294 10*3/uL Normal 150-450 [facility] Comment on above: Performed By: #### L 100.0100, L501.9520, L500.4100, L500.4050, L101.9900, L3100.7870 ####[facility] [address] [place], [address] RBC (Bld) [#/Vol] 4.35 10*6/uL Normal 4.2-5.4 [facility] Comment on above: Performed By: #### L 100.0100, L501.9520, L500.4100, L500.4050, L101.9900, L3100.7870 ####[facility] [address] [place], [address] RDW SD 44.6 fl High 35.1-43.9 [facility] Comment on above: Performed By: #### L 100.0100, L501.9520, L500.4100, L500.4050, L101.9900, L3100.7870 ####[facility] [address] [place], [address] WBC (Bld) [#/Vol] 6.0 10*3/uL Normal 4.4-11.0 [facility] Comment on above: Performed By: #### L 100.0100, L501.9520, L500.4100, L500.4050, L101.9900, L3100.7870 ####[facility] [address] [place], [address] Comprehensive Metabolic Prof ilon 04-25-2024 Albumin [Mass/Vol] 3.6 g/dL Normal 3.2-5.0 [facility] Comment on above: Performed By: #### L 100.0100, L501.9520, L500.4100, L500.4050, L101.9900, L3100.7870 ####[facility] [address] [place], [address] Albumin/Globulin [Mass ratio] 1.0 {ratio} Normal 0.9-2.4 [facility] Comment on above: Performed By: #### L 100.0100, L501.9520, L500.4100, L500.4050, L101.9900, L3100.7870 ####[facility] [address] [place], [address] ALK P 54 U/L Normal 45-117 [facility] Comment on above: Performed By: #### L 100.0100, L501.9520, L500.4100, L500.4050, L101.9900, L3100.7870 ####[facility] [address] [place], [address] ALT [Catalytic activity/Vol] 33 U/L Normal 13-56 [facility] Comment on above: Performed By: #### L 100.0100, L501.9520, L500.4100, L500.4050, L101.9900, L3100.7870 ####[facility] [address] [place], [address] AST [Catalytic activity/Vol] 22 U/L Normal 15-37 [facility] Comment on above: Performed By: #### L 100.0100, L501.9520, L500.4100, L500.4050, L101.9900, L3100.7870 ####[facility] [address] [place], [address] Bilirubin [Mass/Vol] 0.50 mg/dL Normal 0.20-1.00 [facility] Comment on above: Result Comment: For patients on eltrombopag therapy, use of Dimension Squires TBIL is not recommended. Performed By: #### L 100.0100, L501.9520, L500.4100, L500.4050, L101.9900, L3100.7870 ####[facility] [address] [place], [address] BUN/CRE 20.2 RATIO High 10-20 [facility] Comment on above: Performed By: #### L 100.0100, L501.9520, L500.4100, L500.4050, L101.9900, L3100.7870 ####[facility] [address] [place], [address] CA,Total 9.7 mg/dL Normal 8.5-10.1 [facility] Comment on above: Performed By: #### L 100.0100, L501.9520, L500.4100, L500.4050, L101.9900, L3100.7870 ####[facility] [address] [place], [address] Chloride [Moles/Vol] 104 mmol/L Normal 98-107 [facility] Comment on above: Performed By: #### L 100.0100, L501.9520, L500.4100, L500.4050, L101.9900, L3100.7870 ####[facility] [address] [place], [address] CO2 [Moles/Vol] 29.0 mmol/L Normal 21.0-32.0 [facility] Comment on above: Performed By: #### L 100.0100, L501.9520, L500.4100, L500.4050, L101.9900, L3100.7870 ####[facility] [address] [place], [address] Creatinine [Mass/Vol] 0.94 mg/dL Normal 0.55-1.02 [facility] Comment on above: Result Comment: The validity of the calculated GFR GFRAA in patients over70 years has not been determined. Clinical correlation isessential. Performed By: #### L 100.0100, L501.9520, L500.4100, L500.4050, L101.9900, L3100.7870 ####[facility] [address] [place], [place], [phone] EST GFR - AA 76 mL/min Normal >60 [facility] Comment on above: Result Comment: Afri can Surinamese GFR Calc Performed By: #### L 100.0100, L501.9520, L500.4100, L500.4050, L101.9900, L3100.7870 ####[facility] [address] [place], [place], [phone] GAP 7 Normal 5-15 [facility] Comment on above: Performed By: #### L 100.0100, L501.9520, L500.4100, L500.4050, L101.9900, L3100.7870 ####[facility] [address] [place], [place], [phone]) GFR/1.73 sq M.predicted among non-blacks MDRD (S/P/Bld) [Vol rate/Area] 63 mL/min/{1.73_m2} Normal >60 [facility] Comment on above: Result Comment: Non- GFR Calc Performed By: #### L 100.0100, L501.9520, L500.4100, L500.4050, L101.9900, L3100.7870 ####[facility] [address] [place], [place], [phone] Globulin (S) [Mass/Vol] 3.5 g/dL Normal 2.2-4.2 [facility] Comment on above: Performed By: #### L 100.0100, L501.9520, L500.4100, L500.4050, L101.9900, L3100.7870 ####[facility] [address] [place], [address] Glucose [Mass/Vol] 87 mg/dL Normal 74-106 [facility] Comment on above: Performed By: #### L 100.0100, L501.9520, L500.4100, L500.4050, L101.9900, L3100.7870 ####[facility] [address] [place], [address] Potassium [Moles/Vol] 3.7 mmol/L Normal 3.5-5.1 [facility] Comment on above: Performed By: #### L 100.0100, L501.9520, L500.4100, L500.4050, L101.9900, L3100.7870 ####[facility] [address] [place], [address] Sodium [Moles/Vol] 140 mmol/L Normal 136-145 [facility] Comment on above: Performed By: #### L 100.0100, L501.9520, L500.4100, L500.4050, L101.9900, L3100.7870 ####[facility] [address] [place], [address] T PROT 7.1 g/dL Normal 6.4-8.2 [facility] Comment on above: Performed By: #### L 100.0100, L501.9520, L500.4100, L500.4050, L101.9900, L3100.7870 ####[facility] [address] [place], [address] Urea nitrogen [Mass/Vol] 19 mg/dL High 7-18 [facility] Comment on above: Performed By: #### L 100.0100, L501.9520, L500.4100, L500.4050, L101.9900, L3100.7870 ####[facility] [address] [place], [address] Erythrocyte Sed Rateon 04-25 SED RATE 4 mm/hr Normal 0-30 [facility] Comment on above: Performed By: #### L 100.0100, L501.9520, L500.4100, L500.4050, L101.9900, L3100.7870 ####[facility] [address] [place], [address] Lipid Profileon 04-25-2024 Cholesterol [Mass/Vol] 200 mg/dL Normal 200 [facility] Comment on above: Result Comment: <200 mg/dL Desirable 200-240 mg/dL Borderline >240 mg/dL High Risk Performed By: #### L 100.0100, L501.9520, L500.4100, L500.4050, L101.9900, L3100.7870 ####[facility] [address] [place], [address] Cholesterol in HDL [Mass/Vol] 97 mg/dL Normal [facility] Comment on above: Result Comment: The drugs N-Acetylcysteine and Metamizole may falselydepress this assay. Reference Range HDL <40 mg/dL Low HDL Cholesterol HDL >or= 60 mg/dL High HDL Cholesterol Performed By: #### L 100.0100, L501.9520, L500.4100, L500.4050, L101.9900, L3100.7870 ####[facility] [address] [place], [address] Cholesterol in LDL [Mass/Vol] 86 mg/dL Normal 0-130 [facility] Comment on above: Performed By: #### L 100.0100, L501.9520, L500.4100, L500.4050, L101.9900, L3100.7870 ####[facility] [address] [place], [address] Cholesterol in VLDL [Mass/Vol] 17 mg/dL Normal 5-40 [facility] Comment on above: Performed By: #### L 100.0100, L501.9520, L500.4100, L500.4050, L101.9900, L3100.7870 ####[facility] [address] [place], [place], [address] Triglyceride [Mass/Vol] 86 mg/dL Normal [facility] Comment on above: Result Comment: The drugs N-Acetylcysteine and Metamizole may falselydepress this assay.Serum Triglycerides Reference Interval Normal <150 mg/dL Borderline high 150 - 199 mg/dL High 200 - 499 mg/dL Very High > or = 500 mg/dL Performed By: #### L 100.0100, L501.9520, L500.4100, L500.4050, L101.9900, L3100.7870 ####[facility] [address] [place], [place], [id number] Thyroid Stim Hormone (TSH)on 04-25-2024 TSH 0.587 uIU/mL Normal 0.358-3.740 [facility] Comment on above: Performed By: #### L 100.0100, L501.9520, L500.4100, L500.4050, L101.9900, L3100.7870 ####[facility] [address] [place], [place], [id number] XR SHOULDER GENERAL 3V OR MO RE AP/TRUE AP/OTHER RIGHTon 11-25-2022 [facility] XR Shoulder - right 3 Viewso n 11-25-2022 IMPRESSION: No acute osseous abnormality [employer] Systems Administrator: OSMIN Transcribe Date/Time: Nov 25 2022 4:36P Dictated by : BEV MONTIEL MD This examination was interpreted and the report reviewed and electronically signed by: BEV MONTIEL MD on Nov 25 2022 4:39PM [facility] DIVISION OF RADIOLOGY * * *Final Report* * * DATE OF EXAM: Nov 25 2022 4:31PM WOX 5253 - XR SHLDR >/=3V AP/NONA AP/OTHR RT / PROCEDURE REASON: Pain * * * * Physician Interpretation * * * * EXAMINATION: XR SHLDR >/=3V AP/NONA AP/OTHR RT CLINICAL HISTORY: Right shoulder pain Technique: XR SHLDR >/=3V AP/NONA AP/OTHR RT -- RIGHT with 3 views on 3 images Comparison: None RESULT: No acute fracture or dislocation. Joint spaces are maintained. Soft tissue anchor in the right humeral head. Postsurgical changes at the acromioclavicular joint. DIVISION OF RADIOLOGY Provider, [facility] - 11/25/2022 * * *Final Report* * * DATE OF EXAM: Nov 25 2022 4:31PM WOX 5253 - XR SHLDR >/=3V AP/NONA AP/OTHR RT / PROCEDURE REASON: Pain * * * * Physician Interpretation * [...] joint. IMPRESSION IMPRESSION: No acute osseous abnormality [employer] Systems Administrator: OSMIN Transcribe Date/Time: Nov 25 2022 4:36P Dictated by : BEV MONTIEL MD This examination was interpreted and the report reviewed and electronically signed by: BEV MONTIEL MD on Nov 25 2022 4:39PM EST [facility] Radiology Study observation (narrative) [facility] XR Shoulder - right 3 ViewsO rdered By: [facility] Provider on 11-25-2022 [facility] XR FOOT MINIMUM 3 VIEWS LEFT on 09-23-2022 XR FOOT MINIMUM 3 VIEWS LEFT ORIGINAL EXAMINATION: THREE XRAY VIEWS OF THE [...] 09/23/2022 6:50:07 PM Ordering Provider: ERICK BELL [facility] ([place]) Basophil percentageon 2021 Chloride [Moles/Vol] 107 mmol/L 98-107 [facility] Work Phone: Glucose [Mass/Vol] 109 mg/dL 74-106 [facility] Work Phone: Comment on above: Fasting Glucose resu lt from 100 to 125 mg/dL suggests IMPAIRED HOMEOSTASIS per A.D.A. criteria. Potassium [Moles/Vol] 3.4 mmol/L 3.5-5.1 [facility] Work Phone: [phone] Sodium [Moles/Vol] 139 mmol/L 136-145 [facility] Work Phone: Laboratory - Chemistry and C hemistry - challengeon 07-22-2022 CO2 [Moles/Vol] 28.0 mmol/L 21.0-32.0 [facility] Work Phone: [phone] Free T4 [Mass/Vol] 0.93 ng/dL 0.76-1.46 [facility] Work Phone: [phone] Urea nitrogen/Creatini ne [Mass ratio] 25.9 mg/mg 10-20 [facility] Work Phone: No Panel Informationon 07-22 Estimated GFR (MDRD) Amer 115 mL/min >60 [facility] Work Phone: Comment on above: GFR Calc Estimated GFR (MDRD) Non-Af Amer 95 mL/min >60 [facility] Work Phone: [phone] Comment on above: Non- GFR Calc Thyroid Stimulating Hormone (TSH) 1.40 uIU/mL 0.358-3.74 [facility] Work Phone: Serum or plasma calcium kalani urement (mass/volume)on 07-22-2022 Calcium [Mass/Vol] 9.8 mg/dL 8.5-10.1 [facility] Work Phone: Serum or plasma creatinine m easurement (mass/volume)on 07-22-2022 Creatinine [Mass/Vol] 0.66 mg/dL 0.55-1.02 [facility] Work Phone: Comment on above: The validity of the calculated GFR & GFRAA in patients over 70 years has not been determined. Clinical correlation is essential. Serum or plasma urea nitroge n measurement (mass/volume)on 07-22-2022 Urea nitrogen [Mass/Vol] 17 mg/dL - [facility] Work Phone: Thin prep Papanicolaou smear with manual screeningon 07-22-2022 Thin prep Papanicolaou smear with manual screening 4 5-15 [facility] Work Phone: Absolute lymphocyte counton 06-14-2022 Lymphocytes Auto (Unsp spec) [#/Vol] 3.02 10*3/uL 0.83-4.51 [facility] Work Phone: Basophil percentageon 2021 Basophils/100 WBC (Bld) 0.5 % 0-1 [facility] Work Phone: Eosinophils/100 WBC (Bld) 0.3 % 0-5 [facility] Work Phone: [phone] Neutrophils (Bld) [#/Vol] 5.3 10*3/uL 2.0-7.7 [facility] Work Phone: Neutrophils/100 WBC (Bld) 57.8 % 47-70 [facility] Work Phone: WBC (Bld) [#/Vol] 9.1 10*3/uL 4.4-11.0 [facility] Work Phone: Blood erythrocytes count (nu mber/volume)on 06-14-2022 RBC (Bld) [#/Vol] 4.79 10*6/uL 4.2-5.4 [facility] Work Phone: Blood hemoglobin measurement (mass/volume)on 06-14-2022 Hemoglobin (Bld) [Mass/Vol] 14.1 g/dL 12.0-15.0 [facility] Work Phone: Blood lymphocytes/100 leukoc yteson 06-14-2022 Lymphocytes/100 WBC (Bld) 33.1 % 19-41 [facility] Work Phone: [phone] Blood monocytes/100 leukocyt eson 06-14-2022 Monocytes/100 WBC (Bld) 7.8 % 0-10 [facility] Work Phone: Blood platelet mean volumeon 06-14-2022 Platelet mean volume (Bld) [Entitic vol] 11.1 fL 6.2-12.0 [facility] Work Phone: Determination of erythrocyte mean corpuscular volume (MCV)on 06-14-2022 MCV (RBC) [Entitic vol] 91.9 fL 81-99 [facility] Work Phone: Hematocrit Auto (Bld) [Volum e fraction]on 06-14-2022 Hematocrit (Bld) [Volume fraction] 44.0 % 37-47 [facility] Work Phone: Laboratory - Chemistry and C hemistry - challengeon 06-14-2022 ALT [Catalytic activity/Vol] 23 U/L 13-56 [facility] Work Phone: Laboratory - Hematology and Cell countson 06-14-2022 Erythrocyte distribution width (RBC) [Entitic vol] 43.8 fL 35.1-43.9 [facility] Work Phone: Erythrocyte distribution width (RBC) [Ratio] 12.9 % 11.6-14.6 [facility] Work Phone: Immature granulocytes/100 WBC (Bld) 0.500 % 0.0-0.9 [facility] Work Phone: Comment on above: IG% - Immature Granu locytes (promyelocytes, myelocytes and metamyelocytes) > 1% indicates that a LEFT SHIFT is Present. MCH (RBC) [Entitic mass] 29.4 pg 27.0-32.0 [facility] Work Phone: Nucleated RBC/100 WBC (Bld) [Ratio] 0 % 0-5 [facility] Work Phone: MCHC Auto (RBC) [Mass/Vol]on 06-14-2022 MCHC (RBC) [Mass/Vol] 32.0 g/dL 32-36 [facility] Work Phone: No Panel Informationon 06-14 Estimated GFR (MDRD) Amer 107 mL/min >60 [facility] Work Phone: Comment on above: GFR Calc Estimated GFR (MDRD) Non-Af Amer 88 mL/min >60 [facility] Work Phone: Comment on above: Non- GFR Calc Platelets bldon 06-14-2022 Platelets (Bld) [#/Vol] 283 10*3/uL 150-450 [facility] Work Phone: Serum or plasma C reactive p rotein measurement (mass/volume)on 06-14-2022 CRP [Mass/Vol] 3.14 mg/L 0.0-3.0 [facility] Work Phone: Comment on above: C-Reactive Protein ( CRP) provides useful information for thediagnosis, therapy and monitoring of inflammatory processesand associated diseases. For the evaluation of Relative Riskfor Cardiovascular Disease, a High Sensitivity CRP (HSCRP)should be ordered. Serum or plasma albumin kalani urement (mass/volume)on 06-14-2022 Albumin [Mass/Vol] 3.5 g/dL 3.2-5.0 [facility] Work Phone: Serum or plasma creatinine m easurement (mass/volume)on 06-14-2022 Creatinine [Mass/Vol] 0.70 mg/dL 0.55-1.02 [facility] Work Phone: Comment on above: The validity of the calculated GFR & GFRAA in patients over 70 years has not been determined. Clinical correlation is essential. Serum or plasma urea nitroge n measurement (mass/volume)on 06-14-2022 Urea nitrogen [Mass/Vol] 15 mg/dL 7-18 [facility] Work Phone: Thin prep Papanicolaou smear with manual screeningon 06-14-2022 Thin prep Papanicolaou smear with manual screening 9 U/L 15-37 [facility] Work Phone: Absolute lymphocyte counton 02-02-2022 Lymphocytes Auto (Unsp spec) [#/Vol] 2.04 10*3/uL 0.83-4.51 [facility] Work Phone: Basophil percentageon 2021 Basophils/100 WBC (Bld) 1.3 % 0-1 [facility] Work Phone: Eosinophils/100 WBC (Bld) 8.9 % 0-5 [facility] Work Phone: Neutrophils (Bld) [#/Vol] 2.7 10*3/uL 2.0-7.7 [facility] Work Phone: Neutrophils/100 WBC (Bld) 44.2 % 47-70 [facility] Work Phone: WBC (Bld) [#/Vol] 6.1 10*3/uL 4.4-11.0 [facility] Work Phone: Blood erythrocytes count (nu mber/volume)on 02-02-2022 RBC (Bld) [#/Vol] 4.95 10*6/uL 4.2-5.4 [facility] Work Phone: Blood hemoglobin measurement (mass/volume)on 02-02-2022 Hemoglobin (Bld) [Mass/Vol] 14.4 g/dL 12.0-15.0 [facility] Work Phone: Blood lymphocytes/100 leukoc yteson 02-02-2022 Lymphocytes/100 WBC (Bld) 33.6 % 19-41 [facility] Work Phone: Blood monocytes/100 leukocyt eson 02-02-2022 Monocytes/100 WBC (Bld) 11.8 % 0-10 [facility] Work Phone: [phone] Blood platelet mean volumeon 02-02-2022 Platelet mean volume (Bld) [Entitic vol] 10.5 fL 6.2-12.0 [facility] Work Phone: [phone] Determination of erythrocyte mean corpuscular volume (MCV)on 02-02-2022 MCV (RBC) [Entitic vol] 91.5 fL 81-99 [facility] Work Phone: [phone] Hematocrit Auto (Bld) [Volum e fraction]on 02-02-2022 Hematocrit (Bld) [Volume fraction] 45.3 % 37-47 [facility] Work Phone: [phone] Laboratory - Chemistry and C hemistry - challengeon 02-02-2022 ALT [Catalytic activity/Vol] 27 U/L 13-56 [facility] Work Phone: [phone] Laboratory - Hematology and Cell countson 02-02-2022 Erythrocyte distribution width (RBC) [Entitic vol] 45.3 fL 35.1-43.9 [facility] Work Phone: [phone] Erythrocyte distribution width (RBC) [Ratio] 13.4 % 11.6-14.6 [facility] Work Phone: [phone] Immature granulocytes/100 WBC (Bld) 0.200 % 0.0-0.9 [facility] Work Phone: [phone] Comment on above: IG% - Immature Granu locytes (promyelocytes, myelocytes and metamyelocytes) > 1% indicates that a LEFT SHIFT is Present. MCH (RBC) [Entitic mass] 29.1 pg 27.0-32.0 [facility] Work Phone: [phone] Nucleated RBC/100 WBC (Bld) [Ratio] 0 % 0-5 [facility] Work Phone: [phone] MCHC Auto (RBC) [Mass/Vol]on 02-02-2022 MCHC (RBC) [Mass/Vol] 31.8 g/dL 32-36 [facility] Work Phone: No Panel Informationon 02-02 Estimated GFR (MDRD) Amer 86 mL/min >60 [facility] Work Phone: Comment on above: GFR Calc Estimated GFR (MDRD) Non-Af Amer 71 mL/min >60 [facility] Work Phone: Comment on above: Non- GFR Calc Platelets bldon 02-02-2022 Platelets (Bld) [#/Vol] 254 10*3/uL 150-450 [facility] Work Phone: Serum or plasma C reactive p rotein measurement (mass/volume)on 02-02-2022 CRP [Mass/Vol] mg/L 0.0-3.0 [facility] Work Phone: Comment on above: C-Reactive Protein ( CRP) provides useful information for thediagnosis, therapy and monitoring of inflammatory processesand associated diseases. For the evaluation of Relative Riskfor Cardiovascular Disease, a High Sensitivity CRP (HSCRP)should be ordered. Serum or plasma albumin kalani urement (mass/volume)on 02-02-2022 Albumin [Mass/Vol] 3.8 g/dL 3.2-5.0 [facility] Work Phone: Serum or plasma creatinine m easurement (mass/volume)on 02-02-2022 Creatinine [Mass/Vol] 0.84 mg/dL 0.55-1.02 [facility] Work Phone: Comment on above: The validity of the calculated GFR & GFRAA in patients over 70 years has not been determined. Clinical correlation is essential. Serum or plasma urea nitroge n measurement (mass/volume)on 02-02-2022 Urea nitrogen [Mass/Vol] 23 mg/dL 7-18 [facility] Work Phone: Thin prep Papanicolaou smear with manual screeningon 02-02-2022 Thin prep Papanicolaou smear with manual screening 16 U/L 15-37 [facility] Work Phone: Basophil percentageon 2021 Cholesterol [Mass/Vol] 199 mg/dL <200 [facility] Work Phone: Comment on above: <200 mg/dL Desirable 200-240 mg/dL Borderline >240 mg/dL High Risk Triglyceride [Mass/Vol] 151 mg/dL <199 [facility] Work Phone: Comment on above: The drugs N-Acetylcy steine and Metamizole may falsely depress this assay.Serum Triglycerides Reference Interval Normal <150 mg/dL Borderline high 150 - 199 mg/dL High 200 - 499 mg/dL Very High > or = 500 mg/dL No Panel Informationon 01-26 Vitamin D 25-Hydroxy 75.9 ng/mL [facility] Work Phone: Comment on above: Vitamin D 25(OH) Sta tus Range Deficiency <20 ng/mL (50nmol/L) Insufficiency 20 - 30 ng/mL (50 - 75 nmol/L) Sufficiency 30 - 100 ng/mL (75 - 250 nmol/L) Toxicity >100 ng/mL (>250 nmol/L) Serum or plasma cholesterol in HDL measurement (mass/volume)on 01-26-2022 Cholesterol in HDL [Mass/Vol] 73 mg/dL >40 [facility] Work Phone: Comment on above: The drugs N-Acetylcy steine and Metamizole may falsely depress this assay. Reference Range HDL <40 mg/dL Low HDL Cholesterol HDL >or= 60 mg/dL High HDL Cholesterol Serum or plasma cholesterol in VLDL measurement (mass/volume)on 01-26-2022 Cholesterol in VLDL [Mass/Vol] 30 mg/dL 5-40 [facility] Work Phone: Serum or plasma low density lipoprotein (LDL) cholesterol measurement (mass/volume)on 01-26-2022 Cholesterol in LDL [Mass/Vol] 96 mg/dL 0-130 [facility] Work Phone: Absolute lymphocyte counton 01-18-2022 Lymphocytes Auto (Unsp spec) [#/Vol] 2.54 10*3/uL 0.83-4.51 [facility] Work Phone: Basophil percentageon 2021 Basophils/100 WBC (Bld) 1.1 % 0-1 [facility] Work Phone: Bilirubin [Mass/Vol] 0.50 mg/dL 0.20-1.00 [facility] Work Phone: Comment on above: For patients on eltr ombopag therapy, use of Dimension Squires TBIL is not recommended. Chloride [Moles/Vol] 104 mmol/L 98-107 [facility] Work Phone: Eosinophils/100 WBC (Bld) 8.2 % 0-5 [facility] Work Phone: Glucose [Mass/Vol] 100 mg/dL 74-106 [facility] Work Phone: Comment on above: Fasting Glucose resu lt from 100 to 125 mg/dL suggests IMPAIRED HOMEOSTASIS per A.D.A. criteria. Neutrophils (Bld) [#/Vol] 2.8 10*3/uL 2.0-7.7 [facility] Work Phone: Neutrophils/100 WBC (Bld) 43.1 % 47-70 [facility] Work Phone: Potassium [Moles/Vol] 3.6 mmol/L 3.5-5.1 [facility] Work Phone: Protein [Mass/Vol] 7.6 g/dL 6.4-8.2 [facility] Work Phone: Sodium [Moles/Vol] 139 mmol/L 136-145 [facility] Work Phone: WBC (Bld) [#/Vol] 6.5 10*3/uL 4.4-11.0 [facility] Work Phone: Blood erythrocytes count (nu mber/volume)on 01-18-2022 RBC (Bld) [#/Vol] 4.95 10*6/uL 4.2-5.4 [facility] Work Phone: Blood hemoglobin measurement (mass/volume)on 01-18-2022 Hemoglobin (Bld) [Mass/Vol] 14.4 g/dL 12.0-15.0 [facility] Work Phone: Blood lymphocytes/100 leukoc yteson 01-18-2022 Lymphocytes/100 WBC (Bld) 39.4 % 19-41 [facility] Work Phone: Blood monocytes/100 leukocyt eson 01-18-2022 Monocytes/100 WBC (Bld) 7.9 % 0-10 [facility] Work Phone: Blood platelet mean volumeon 01-18-2022 Platelet mean volume (Bld) [Entitic vol] 10.1 fL 6.2-12.0 [facility] Work Phone: Determination of erythrocyte mean corpuscular volume (MCV)on 01-18-2022 MCV (RBC) [Entitic vol] 91.3 fL 81-99 [facility] Work Phone: Hematocrit Auto (Bld) [Volum e fraction]on 01-18-2022 Hematocrit (Bld) [Volume fraction] 45.2 % 37-47 [facility] Work Phone: Laboratory - Chemistry and C hemistry - challengeon 01-18-2022 ALP [Catalytic activity/Vol] 108 U/L 45-117 [facility] Work Phone: ALT [Catalytic activity/Vol] 25 U/L 13-56 [facility] Work Phone: CO2 [Moles/Vol] 29.0 mmol/L 21.0-32.0 [facility] Work Phone: Globulin (S) [Mass/Vol] 3.7 g/dL 2.2-4.2 [facility] Work Phone: Urea nitrogen/Creatini ne [Mass ratio] 23.7 mg/mg 10-20 [facility] Work Phone: Laboratory - Hematology and Cell countson 01-18-2022 Erythrocyte distribution width (RBC) [Entitic vol] 45.1 fL 35.1-43.9 [facility] Work Phone: Erythrocyte distribution width (RBC) [Ratio] 13.3 % 11.6-14.6 [facility] Work Phone: [phone] Immature granulocytes/100 WBC (Bld) 0.300 % 0.0-0.9 [facility] Work Phone: Comment on above: IG% - Immature Granu locytes (promyelocytes, myelocytes and metamyelocytes) > 1% indicates that a LEFT SHIFT is Present. MCH (RBC) [Entitic mass] 29.1 pg 27.0-32.0 [facility] Work Phone: [phone] Nucleated RBC/100 WBC (Bld) [Ratio] 0.5 % 0-5 [facility] Work Phone: [phone] MCHC Auto (RBC) [Mass/Vol]on 01-18-2022 MCHC (RBC) [Mass/Vol] 31.9 g/dL 32-36 [facility] Work Phone: No Panel Informationon 01-18 Estimated GFR (MDRD) Amer 87 mL/min >60 [facility] Work Phone: [phone] Comment on above: GFR Calc Estimated GFR (MDRD) Non-Af Amer 72 mL/min >60 [facility] Work Phone: [phone] Comment on above: Non- GFR Calc Platelets bldon 01-18-2022 Platelets (Bld) [#/Vol] 261 10*3/uL 150-450 [facility] Work Phone: [phone] Serum or plasma albumin kalani urement (mass/volume)on 01-18-2022 Albumin [Mass/Vol] 3.9 g/dL 3.2-5.0 [facility] Work Phone: [phone] Serum or plasma albumin/glob ulin mass ratioon 01-18-2022 Albumin/Globulin [Mass ratio] 1.1 {ratio} 0.9-2.4 [facility] Work Phone: [phone] Serum or plasma calcium kalani urement (mass/volume)on 01-18-2022 Calcium [Mass/Vol] 9.5 mg/dL 8.5-10.1 [facility] Work Phone: [phone] Serum or plasma creatinine m easurement (mass/volume)on 01-18-2022 Creatinine [Mass/Vol] 0.84 mg/dL 0.55-1.02 [facility] Work Phone: Comment on above: The validity of the calculated GFR & GFRAA in patients over 70 years has not been determined. Clinical correlation is essential. Serum or plasma urea nitroge n measurement (mass/volume)on 01-18-2022 Urea nitrogen [Mass/Vol] 20 mg/dL 7-18 [facility] Work Phone: Thin prep Papanicolaou smear with manual screeningon 01-18-2022 Thin prep Papanicolaou smear with manual screening 15 U/L 15-37 [facility] Work Phone: Thin prep Papanicolaou smear with manual screening 6 5-15 [facility] Work Phone: Thin prep Papanicolaou smear with manual screening 175 U/L 84-246 [facility] Work Phone: Absolute lymphocyte counton 09-28-2021 Lymphocytes Auto (Unsp spec) [#/Vol] 2.19 10*3/uL 0.83-4.51 [facility] Work Phone: Basophil percentageon 2021 Basophils/100 WBC (Bld) 1.3 % 0-1 [facility] Work Phone: Eosinophils/100 WBC (Bld) 12.4 % 0-5 [facility] Work Phone: Neutrophils (Bld) [#/Vol] 2.2 10*3/uL 2.0-7.7 [facility] Work Phone: Neutrophils/100 WBC (Bld) 39.4 % 47-70 [facility] Work Phone: WBC (Bld) [#/Vol] 5.6 10*3/uL 4.4-11.0 [facility] Work Phone: Blood erythrocytes count (nu mber/volume)on 09-28-2021 RBC (Bld) [#/Vol] 4.77 10*6/uL 4.2-5.4 [facility] Work Phone: [phone] Blood hemoglobin measurement (mass/volume)on 09-28-2021 Hemoglobin (Bld) [Mass/Vol] 13.7 g/dL 12.0-15.0 [facility] Work Phone: [phone] Blood lymphocytes/100 leukoc yteson 09-28-2021 Lymphocytes/100 WBC (Bld) 39.2 % 19-41 [facility] Work Phone: [phone] Blood monocytes/100 leukocyt eson 09-28-2021 Monocytes/100 WBC (Bld) 7.5 % 0-10 [facility] Work Phone: [phone] Blood platelet mean volumeon 09-28-2021 Platelet mean volume (Bld) [Entitic vol] 11.3 fL 6.2-12.0 [facility] Work Phone: [phone] Determination of erythrocyte mean corpuscular volume (MCV)on 09-28-2021 MCV (RBC) [Entitic vol] 91.2 fL 81-99 [facility] Work Phone: [phone] Hematocrit Auto (Bld) [Volum e fraction]on 09-28-2021 Hematocrit (Bld) [Volume fraction] 43.5 % 37-47 [facility] Work Phone: [phone] Laboratory - Chemistry and C hemistry - challengeon 09-28-2021 ALT [Catalytic activity/Vol] 35 U/L 13-56 [facility] Work Phone: [phone] Laboratory - Hematology and Cell countson 09-28-2021 Erythrocyte distribution width (RBC) [Entitic vol] 45.1 fL 35.1-43.9 [facility] Work Phone: [phone] Erythrocyte distribution width (RBC) [Ratio] 13.3 % 11.6-14.6 [facility] Work Phone: [phone] Immature granulocytes/100 WBC (Bld) 0.200 % 0.0-0.9 [facility] Work Phone: [phone] Comment on above: IG% - Immature Granu locytes (promyelocytes, myelocytes and metamyelocytes) > 1% indicates that a LEFT SHIFT is Present. MCH (RBC) [Entitic mass] 28.7 pg 27.0-32.0 [facility] Work Phone: [phone] Nucleated RBC/100 WBC (Bld) [Ratio] 0 % 0-5 [facility] Work Phone: [phone] MCHC Auto (RBC) [Mass/Vol]on 09-28-2021 MCHC (RBC) [Mass/Vol] 31.5 g/dL 32-36 [facility] Work Phone: [phone] No Panel Informationon 09-28 Estimated GFR (MDRD) Amer 88 mL/min >60 [facility] Work Phone: Comment on above: GFR Calc Estimated GFR (MDRD) Non-Af Amer 73 mL/min >60 [facility] Work Phone: Comment on above: Non- GFR Calc Platelets bldon 09-28-2021 Platelets (Bld) [#/Vol] 276 10*3/uL 150-450 [facility] Work Phone: Serum or plasma C reactive p rotein measurement (mass/volume)on 09-28-2021 CRP [Mass/Vol] mg/L 0.0-3.0 [facility] Work Phone: Comment on above: C-Reactive Protein ( CRP) provides useful information for thediagnosis, therapy and monitoring of inflammatory processesand associated diseases. For the evaluation of Relative Riskfor Cardiovascular Disease, a High Sensitivity CRP (HSCRP)should be ordered. Serum or plasma albumin kalani urement (mass/volume)on 09-28-2021 Albumin [Mass/Vol] 3.8 g/dL 3.2-5.0 [facility] Work Phone: [phone] Serum or plasma creatinine m easurement (mass/volume)on 09-28-2021 Creatinine [Mass/Vol] 0.83 mg/dL 0.55-1.02 [facility] Work Phone: Comment on above: The validity of the calculated GFR & GFRAA in patients over 70 years has not been determined. Clinical correlation is essential. Serum or plasma urea nitroge n measurement (mass/volume)on 09-28-2021 Urea nitrogen [Mass/Vol] 22 mg/dL 7-18 [facility] Work Phone: Thin prep Papanicolaou smear with manual screeningon 09-28-2021 Thin prep Papanicolaou smear with manual screening 26 U/L 15-37 [facility] Work Phone: No Panel Informationon 01-05 Miscellaneous Test See comment [facility] Work Phone: Comment on above: TEST RESULT LIMITSCh romosome, Leukemia/Lymphoma Specimen Type Comment: BLOOD Cells Counted 20 Cells Analyzed 20 Cells Karyotyped 2 GTG Band Resolution Achieved 400 Cytogenetic Result Comment: 46,XX[20] Interpretation Comment: NORMAL FEMALE KARYOTYPE Cytogenetic analysis of GTG banded metaphases from unstimulated and B-mitogen stimulated cultures used specifically for B-lymphoid disorders showed only normal cells. Some abnormal clones, however, have low mitotic rates, may not respond to mitogens, or may have alterations below the resolution of cytogenetics. An CLL/MCL interphase fluorescence in situ hybridization (FISH) panel (test code 836455) may be considered. Non-Hodgkin lymphoma interphase fluorescence in situ hybridization (FISH) panel (test code 530598). A whole genome SNP microarray-Oncology Reveal (test code 932931) may also be considered to resolve higher resolution imbalances and copy neutral LUIS. Cytogenetic results should be interpreted within the context of a full pathology evaluation which may include flow cytometry, microarray analysis, and molecular genetic testing. Director Review: Comment: Jojo Childers, PhD TESTING PERFORMED AT [facility]. ORIGINAL REPORT ON FILE IN LAB CONTAINS ADDITIONAL TEST SITE INFORMATION. _ ANES Suad 05-21-2019 ANES POST HNO ID: [id number] Author: Rudolph Goel Service: Anesthesiology Author Type: Anesthesiologist Type: Anesthesia PostOp Filed: 05/21/2019 6:03 PM Note Text: POST ANESTHESIA EVALUATION NOTE SERVICE DATE: 05/21/2019 SERVICE TIME: 1803 : 1955 Vitals: 05/21/19 1456 Temp: 37 ?C (98.6 ?F) 05/21/19 1456 BP: 139/77 05/21/19 1456 Pulse: 63 05/21/19 1456 Resp: 16 05/21/19 1456 SpO2: 99% Validated Vital Signs: Yes POST ANES STATUS: No apparent anesthetic complications. The patient is appropriately hydrated with stable respiratory and cardiovascular status. Patient has safe and adequate airway control. The patient has appropriate pain relief and no significant post operative nausea or vomiting. The patient has achieved baseline mental status. Intra-Operative Events: No Significant Anesthesia Events Further assessment by Anesthesia Service: None Other Remarks: SIGNATURE: Rudolph Goel MD PATIENT NAME: Lele Pang DATE: May 21, 2019 TIME: 6:03 PM PAGER/CONTACT #: [facility] ANES PREOPon 05-21-2019 ANES PREOP HNO ID: [id number] Author: Rudolph Goel Service: Anesthesiology Author Type: Anesthesiologist Type: Anesthesia PreOp Filed: 05/21/2019 4:03 PM Note Text: ANESTHESIOLOGY DAY OF SURGERY NOTE SERVICE DATE: 05/21/2019 SERVICE TIME: 1603 : 1955 Procedure(s) (LRB): LAMINECTOMY DECOMPRESSION FACETECTOMY AND FORAMINOTOMY (Left) Surgeon(s): Delmar Khan Estimated body mass index is 27.47 kg/m? as calculated from the following: Height as of 05/03/19: 149.9 cm (4' 11). Weight as of 05/03/19: 61.7 kg (136 lb). 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 No pertinent past medical history. PAST SURGICAL HISTORY Procedure Laterality Date - CARPAL TUNNEL Bilateral - HYSTERECTOMY HX - LUMBAR SPINE FUSION COMBINED 02/2017 L4-S1 [facility] Dr. Arteaga - PAST SURGICAL HISTORY OF foot surgery-hammertoe, bunionectomy - PAST SURGICAL HISTORY OF trigger finger multiple fingers - ROTATOR CUFF REPAIR Bilateral FAMILY HISTORY Problem Relation Age of Onset - Alzheimer's Disease Mother - Heart Attack Father - Alcohol/Drug Father - Diabetes Sister - No Known Problems Brother - Diabetes Sister - No Known Problems Sister Social History: Social History Tobacco Use - Smoking status: Current Every Day Smoker Packs/day: 0.50 Types: Cigarettes - Smokeless tobacco: Current User - Tobacco comment: pt smoke half pack per day Substance Use Topics - Alcohol use: Never Frequency: Never - Drug use: Never No current facility-administered medications on file prior to encounter. Current Outpatient Medications on File Prior to Encounter: acyclovir (ZOVIRAX) 400 mg tablet Take 400 mg by mouth. buPROPion XL (WELLBUTRIN XL) 150 mg 24 hr tablet Take 150 mg by mouth once daily. calcium carbonate/vitamin D3 (CALCIUM 600 + D ORAL) Take by mouth. celecoxib (CELEBREX) 200 mg capsule Take 200 mg by mouth twice daily. cholecalciferol (VITAMIN D-3) 5,000 unit tab Take 5,000 Units by mouth once daily. DULoxetine (CYMBALTA) 60 mg capsule Take 60 mg by mouth once daily. folic acid 1 mg tablet Take 1 mg by mouth once daily. gabapentin (NEURONTIN) 600 mg tablet Take 600 mg by mouth twice daily. linaCLOtide (LINZESS) 72 mcg capsule Take 1 capsule by mouth once daily. Administer on an empty stomach. Swallow whole; DO NOT crush or chew. B Complex Vitamins capsule Take 1 capsule by mouth once daily. NORVASC 10MG TABLET Take one(1) tablet daily. (Patient taking differently: 5 mg. ) albuterol (PROVENTIL) 2.5 mg /3 mL (0.083 %) nebulizer solution as needed for Wheezing/Shortness of Breath. estradiol (ESTRACE) 1 mg tablet Take 0.5 mg by mouth once daily. predniSONE (DELTASONE) 5 mg tablet as needed. For flare up of arthritis amphetamine-dextroamphetamin e XR (ADDERALL XR) 30 mg 24 hr capsule Take 30 mg by mouth once daily. fluticasone propionate (FLONASE NASAL) Use in the nose. METHOTREXATE SODIUM INJECTION by INJECTION(UNSPECIFIED PARENTERAL ROUTES) route. leucovorin (LEUCOVORIN) 5 mg tablet Take 5 mg by mouth once daily. pravastatin (PRAVACHOL) 40 mg tablet Take 40 mg by mouth once daily. MULTIVITAMIN TABLET Take one(1) tablet daily. (Patient not taking: Reported on 05/03/2019) Current Facility-Administered Medications Medication Dose Route Frequency Provider Last Rate Last Dose - lidocaine 10 mg/mL (1 %) 1-2 mg injection (XYLOCAINE) 0.1-0.2 mL INTRADERMAL PRN Delmar Khan - lactated ringers infusion 5-30 mL/hr INTRAVENOUS CONTINUOUS Delmar Khan 30 mL/hr at 05/21/19 1517 30 mL/hr at 05/21/19 1517 - vancomycin iv piggyback 1 g in D5W 200 mL (VANCOCIN) 1 g INTRAVENOUS Media Supervisor to OR Delmar Khan 200 mL/hr at 05/21/19 1540 1 g at 05/21/19 1540 - vancomycin 1,000 mg injection 1,000 mg OTHER ONCE Delmar Khan - bacitracin 50,000 Units in sodium chloride 0.9 % 1,000 mL 50,000 Units IRRIGATION ONCE Delmar Khan Allergies: ALLERGIES Allergen Reactions - Penicillins - Tessalon Perle [Alin* Rash DOS EXAM: Adequate NPO status: Yes Anesthetic risks, benefits, alternatives, personnel and consent discussed: Yes Patient agrees to proceed: Yes Previous Anesthesia: No history of adverse event. Airway Assessment: MP 2; Neck ROM: Full ROM without neurologic symptoms; Airway Evaluation: No significant abnormalities Symptoms of Sleep Apnea: None Dentition: Teeth intact Additional Physical Exam: Lungs: Patient health status unchanged since recent history and physical. See history and physical for exam findings. Cardiac: Patient health status unchanged since recent history and physical. See history and physical for exam findings. Additional Pertinent Findings: N/A Blood Products: Not anticipated for this procedure. Anesthetic Plan: General, Standard ASA Monitors and Standard ASA Monitors Pain Management Plan: Parenteral or Oral and per Surgical Service ASA Class: 3 Other Medical Problems: None Chronic Beta Jose Juan medication administered within 24 hours: N/A I have interviewed and examined the patient. I have reviewed the medical record and/or the pre-anesthesia evaluation, pertinent labs, and test results. Significant changes in the patient's condition since the History and Physical, not otherwise documented in primary service progress notes: No This contains updated information obtained within 48 hours of Surgery/Procedure. SIGNATURE: Rudolph Goel MD PATIENT NAME: Lele Pang DATE: May 21, 2019 TIME: 4:03 PM CSN: [id number] [facility] NURSING PROGon 05-21-2019 NURSING PROG HNO ID: [id number] Author: Beryl MullinsRn) JOSE RAMON Velázquez Service: ? Author Type: Registered Nurse Type: Nursing Progress Note Filed: 05/21/2019 7:30 PM Note Text: 190: Pt arrived to Phase II awake, denies need for pain meds at this time. Surgical site to lower MANAGEMENT COORDINATOR with glue. 1909: Tolerating hussein silvina and crackers. 1914: Family at bedside 1919: Ambulated with steady gait. 1924: IV removed. 1929 D/C paperwork reviewed. [facility] NURSING PROG HNO ID: [id number] Author: Jigna MullinsRn) JOSE RAMON Martinez Service: ? Author Type: Registered Nurse Type: Nursing Progress Note Filed: 05/21/2019 6:12 PM Note Text: Nursing Progress Note Patient Name: Lele Pang Patient Location: [facility] OR POOL/[facility] OR POOL Daily Note:Pt arrived to PACU at 1803 on SFM 6L. Pt sedated but alert and responds to verbal stimulus. Denies pain, n/v. Back incision assessed and WNL. Negative for hematoma. VSS. SCD's applied bilaterally. This note was completed by: Jigna Martinez RN [facility] OPERATIVE NOon 05-21-2019 OPERATIVE NO HNO ID: [id number] Author: Delmar Khan Service: Neurosurgery Author Type: Physician Type: Operative Report Filed: 05/22/2019 12:18 PM Note Text: OPERATIVE/PROCEDURE REPORT LOG ID: [id number] SURGERY/PROCEDURE DATE: 05/21/2019 INCISION/PROCEDURE START TIME: 5:02 PM INCISION CLOSE/PROCEDURE END TIME: 5:45 PM SURGEON(S)/PROCEDURALIST(S) AND ASSURANCE OFFICER(S): Surgeon(s) and Role: * Delmar Khan - Primary Physician Optical Glass Sawyer: Mando Guevara) Javi SURGERY/PROCEDURE(S): Left L4/5 foraminotomy ANESTHESIA: General SURGERY/PROCEDURE DETAILS: This patient was brought to the operating room, where she was carefully sedated and? intubated.? IVs were established by Anesthesia.? She was flipped prone onto the Lalo table.? All bony prominences well padded.? Her lumbar region was prepped and draped in a? sterile fashion.? Using lateral fluoroscopy, we localized over the L4-5 interspace.? Using? a 10 blade, I made a 26 mm incision, 1.5 cm off the midline.? I then inserted my dilators? after opening up the paraspinal fascia with Bovie mono cautery.? I serially dilated up and? inserted a 6 cm length x 26 mm diameter Shoebox tubular? retractor, which was secured to the articulating arm.? The microscope was brought into the? field.? The remainder of the procedure was carried under the microscope.? Using Bovie mono? cautery and pituitary rongeurs, I carefully carried off the soft tissue overlying the? lamina-facet complex on the left side at L4-5.? Using a T12 bit on the Midas Charles drill, I? performed hemilaminotomy and? a medial facetectomy going down through to the yellow ligament.? I then used a 2 mm Kerrison after I opened the ligament with a curved curette to carefully? remove the remaining ligament in a piecemeal fashion and complete my facetectomy and? foraminotomy following the nerve as it exited.? I removed any osteophytes associated with? the facet joint.? I opened up the lateral recess and decompressed.? I confirmed adequate? decompression using a nerve hook.?? 3 cc of Depo-Medrol was placed on the nerve root.? I then irrigated copiously with antibiotic containing irrigation.? I? then removed my retractor and closed the wound in multiple layers using 0 Vicryl to close? the fascia, 2-0 Vicryl was used to close the subcutaneous tissue, and skin was closed with? running V-Loc in? simple subcuticular fashion.? Sterile skin glue was applied. The patient? was then transferred over to his hospital bed where he was extubated and taken to PACU in? stable condition. PRE-OP/PRE-PROCEDURE DIAGNOSIS: Lumbosacral spondylosis without myelopathy [M47.817] Spinal stenosis, lumbar region, without neurogenic claudication [M48.061] Lumbosacral radiculitis [M54.17] POST-OP/POST-PROCEDURE DIAGNOSIS: Lumbosacral spondylosis without myelopathy [M47.817] Spinal stenosis, lumbar region, without neurogenic claudication [M48.061] Lumbosacral radiculitis [M54.17] ESTIMATED BLOOD LOSS: 25 mls SPECIMENS: None IMPLANTABLE DEVICES: None DRAINS: None COMPLICATIONS: None PARTICIPATION IN SURGERY/PROCEDURE: I/primary surgeon/proceduralist performed the procedure with assistance. SIGNATURE: Delmar Khan MD PATIENT NAME: Lele Pang DATE: May 22, 2019 TIME: 12:16 PM PAGER/CONTACT #: [facility] PT EDon 05-21-2019 PT ED HNO ID: [id number] Author: Beryl (Rn) JOSE RAMON Velázquez Service: ? Author Type: Registered Nurse Type: Patient Education Filed: 05/21/2019 7:38 PM Note Text: PATIENT EDUCATION TOPIC: PROCEDURE / SURGERY: Post-op Teaching: Symptom Management and Wound Care PATIENT NAME: Lele Pang PATIENT LOCATION: [facility] OR POOL/[facility] * READINESS TO LEARN COGNITIVE ABILITY: Alert and oriented MOTIVATION TO LEARN: Interested FAMILY SUPPORT: High - Very involved in pt care INSTRUCTION PROVIDED TO: Patient and family member PATIENT LEARNS BEST BY: Individual Instruction Verbal Instruction FACTORS AFFECTING LEARNING: None PHYSICAL LIMITATIONS AFFECTING LEARNING: None LEARNING RESPONSE DIAGNOSIS: ADULT: Laminectomy PATIENT/FAMILY RESPONSE: Information received as demonstrated by interest and questions METHOD OF INSTRUCTION: Individual instruction Written instruction - handouts Verbal instruction FOLLOW-UP PLAN: Patient instructed to call with any further issues Contact information given. INSTRUCTIONAL AIDS USED: NA SUPPLEMENTAL MATERIAL PROVIDED TO PATIENT: None REFERRAL (RECOMMENDATION): None Electronically Signed By: Beryl Velázquez RN [facility] XR LUMBAR SPECIFY 1Von 05-21 XR LUMBAR SPECIFY 1V * * *Final Report* * * DATE OF EXAM: May 21 2019 5:15PM HCR [id number] - XR LUMBAR SPECIFY 1V / PROCEDURE REASON: LOCALIZATION * * * * Physician Interpretation * * * * RESULT: EXAMINATION: Intraoperative localization HISTORY: Intraoperative film TECHNIQUE: Single lateral lumbar spine RESULTS: Pedicle screws and rods at L4 and L5 with slight anterior listhesis of L4 on L5. Localization is directed at the L3-4 level. Image obtained for surgical assistance. IMPRESSION: Refer to the operative report Transcribed Using Voice Recognition Transcribe Date/Time: May 21 2019 6:56P Dictated by: RANDY BUI MD This examination was interpreted and the report reviewed and electronically signed by: ARNDY BUI MD on May 21 2019 6:57PM EST [id number] [facility] NURSING PROGon 05-07-2019 NURSING PROG HNO ID: [id number] Author: Donita (Rn) JOSE RAMON Goncalves Service: ? Author Type: Registered Nurse Type: Nursing Progress Note Filed: 05/07/2019 10:07 AM Note Text: PACC Nurse Progress Note History AND Physical: PACC Visit Date: 05/03/19 Original HANDP Date: N/A ED visit Date: N/A Outside HANDP Scanned Date: N/A Labs Within Last 6 Months: CBC: Date 05/03/19 Wnl BMP/CMP: Date 05/03/19 Wnl STAAMP: Date 05/03/19 Negative TYPE AND SCREEN: Date 05/03/19 [place]: Date 05/03/19 Imaging Within Last 12 Months: MRI See chart Cardiac Testing: EKG in last 12 Months: Yes: Date: 05/03/19 , Comment: NSR anterolateral T wave abnormality Last Menstrual Period: LMP Date: N/A Postmenopausal >1yr: Yes, S/P Hysterectomy: Yes BMI Percentile (PEDS): N/A Risk Assessment: N/A Anesthesia Review: N/A Narrative: N/A Pre-op Considerations: ETOH sober 5 years Chart Check: COMPLETED Donita Goncalves RN May 07, 2019 9:49 AM [facility] Confirm Blood Typeon 019 ABO/RH(D) Positive [facility] HOSPon 05-03-2019 HOSP Patient:Karine Pang MRN: Height:4' 11(1.499 m) Weight:136 lb (61.689 kg) Outpatient Medications as of 05/21/19: oxyCODONE-acetaminophen (PERCOCET) 5-325 mg tablet oxyCODONE-acetaminophen (PERCOCET) 5-325 mg tablet albuterol (PROVENTIL) 2.5 mg /3 mL (0.083 %) nebulizer solution estradiol (ESTRACE) 1 mg tablet predniSONE (DELTASONE) 5 mg tablet acyclovir (ZOVIRAX) 400 mg tablet buPROPion XL (WELLBUTRIN XL) 150 mg 24 hr tablet calcium carbonate/vitamin D3 (CALCIUM 600 + D ORAL) celecoxib (CELEBREX) 200 mg capsule cholecalciferol (VITAMIN D-3) 5,000 unit tab amphetamine-dextroamphetamin e XR (ADDERALL XR) 30 mg 24 hr capsule DULoxetine (CYMBALTA) 60 mg capsule fluticasone propionate (FLONASE NASAL) folic acid 1 mg tablet gabapentin (NEURONTIN) 600 mg tablet METHOTREXATE SODIUM INJECTION leucovorin (LEUCOVORIN) 5 mg tablet linaCLOtide (LINZESS) 72 mcg capsule pravastatin (PRAVACHOL) 40 mg tablet B Complex Vitamins capsule NORVASC 10MG TABLET MULTIVITAMIN TABLET Admission/Clinic Administered Medications as of 05/21/19: lidocaine 10 mg/mL (1 %) 1-2 mg injection (XYLOCAINE) lactated ringers infusion vancomycin iv piggyback 1 g in D5W 200 mL (VANCOCIN) vancomycin 1,000 mg injection bacitracin 50,000 Units in sodium chloride 0.9 % 1,000 mL Problem List: Obstruction of bile duct [K83.1] Attention deficit hyperactivity disorder, 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] Hypertensive disorder [I10] Rheumatoid arthritis (HCC) [M06.9] Mixed hyperlipidemia [E78.2] Asthma [J45.909] COPD with chronic bronchitis (HCC) [J44.9] Former smoker [Z87.891] Neuropathy (HCC) [G62.9] History of ETOH abuse [F10.11] Anxiety and depression [F41.9, F32.9] Lumbosacral spondylosis without myelopathy [M47.817] Spinal stenosis, lumbar region, without neurogenic claudication [M48.061] Lumbosacral radiculitis [M54.17] Allergies: Penicillins Tessalon Perle [Benzonatate] Date Verified: 05/21/19 Lab Values Lab Value Units Date High Low POTA* 3.9 mmol/L 05/03/2019 5.1 3.7 LEOLA* 44.8 % 05/03/2019 46.0 36.0 Progress Notes ([facility]): Josi Mcfadden 05/14/2019 11:38 AM Signed NI PHONE Name of caller : self Relationship to patient : Self If not self Will need patient permission to release results or disclose health information with called documented in fyi. Was permission obtained from patient ? na Patient identified by Name and Date of . ( Lele Pang, 1955). Yes Reason for Call : Patient received your paperwork and wants to discuss it. Number to return call [phone] Okay to leave a message ? Yes Thank you calling [facility] Neurological [place]. You will receive a return call within 48 hours ( or 2 business days if close to the weekend). If you feel that this is an urgent issue and needs immediate attention, it is recommended that you contact your primary care provider office or proceed to your nearest Urgent Care Center of Emergency Room ED for evaluation/treatment. Erika Kennedy, RN, RN 05/14/2019 4:09 PM Signed NEUROSURGERY CARE COORDINATION [facility] PRE-OP EDUCATION VISIT ? Met with patient Lele Pang for pre-op education. Reviewed education materials verbally with patient, including pre-operative skin preparation, wound care, post-operative pain management. ? Provided the following education materials to patient: [facility] Spine Surgery [facility] Pre-/Post-Op Instruction packet, NPO/Skin Prep Instructions, Map of [facility] 1st Floor, Nearby Accommodations list, Pain Management After Spine Surgery packet, Preparing for Post-Acute Care Instructions (if applicable): Yes. ? Discussed recommendation for every [facility] patient over the age of 18 to complete Healthcare POA forms prior to surgery. Provided forms to patient: No. Patient completed Healthcare POA in office and forms were scanned to patients record: No. ? Reviewed with patient to report to Pre/Post op services day of surgery: Yes. ? Reviewed with patient [facility] Surgery Pre-Op will call patient after 2 pm the day before to get surgery report time for day of surgery. Provided Pre-Op front end developer javascript html css phone number of [phone] for any questions: Yes. ? Patient made aware to eat nothing after midnight prior to surgery, no more than 12 oz of clear liquids only until 2 hours before report time day of surgery: Yes. ? Patient aware surgery anticipated to be home the same day. ? Discussed anticipated care post discharge: Self care and Home Health Care ( PT-OT-nurse). ? Does patient have transportation to and from surgery? Yes. ? Falls Education provided? Yes. ? Questions answered and patient verbalized understanding via teach back. ? Additional Comments: Post-op Support/Assistance upon discharge after surgery (family member, SNF, Rehab etc.): Education material mailed to patient on previous date, patient returning call to office today to review material and discuss. Patient advised she can buy Hibiclens soap at local pharmacy. Reviewed all handouts mailed to patient, patient verbalized understanding with no other questions, states her sister will be there to provide post op support. Erika Kennedy RN [facility] ([facility]): Alin Bourne Pss 04/29/2019 11:30 AM Signed Name of caller: Lele Pang Date/Time of call: 11:25 Number to return call to: [phone] Time Patient is available for return call: anytime Ok to leave a message?: y Nature of call : Patient called, asking for gas voucher form she gave to nurse during Monday's visit, emailed to patient at [email or web address] Erika Kennedy RN, RN 05/01/2019 9:35 AM Signed NEUROSURGERY CARE COORDINATION [facility] QUICK NOTE ? Patient identified by name and date of : Yes ? Spoke to patient ? Reason for call: Gas voucher ? Additional Notes: Patient advised gas voucher received, will email back once signed. No other questions at this time. JOSE RAMON Scottgeeta Murdock [facility] 05/01/2019 11:55 AM Signed Form signed and emailed back to patient at [email or web address] Laney Murdock [facility] May 01, 2019 11:55 AM Normal [facility] Type and SCR (30D)on 019 ABO/RH(D) Positive Normal [facility] Vital Signs Date Time Vital Sign Value Performing Clinician Facility 03-06-2025 13:07-0400 Body mass index (BMI) [Ratio] 27.21 kg/m2 Winnie David PA-C Work Phone: [facility] 03-06-2025 13:07-0400 Body weight 59.06 kg Winnie David PA-C Work Phone: [facility] 03-06-2025 13:07-0400 Diastolic blood pressure 86 mm[Hg] Winnie David PA-C Work Phone: [facility] 03-06-2025 13:07-0400 Heart rate 77 /min Winnie David PA-C Work Phone: [facility] 03-06-2025 13:07-0400 Respiratory rate 17 /min Winnie David PA-C Work Phone: [facility] 03-06-2025 13:07-0400 SaO2% (BldA) [Mass fraction] 98 % Winnie David PA-C Work Phone: [facility] 03-06-2025 13:07-0400 Systolic blood pressure 143 mm[Hg] Winnie David PA-C Work Phone: [facility] 12-05-2024 11:14-0400 Body height 147.3 cm Winnie David PA-C Work Phone: [facility] 12-05-2024 11:14-0400 Body mass index (BMI) [Ratio] 26.5 kg/m2 Winnie David PA-C Work Phone: [facility] 12-05-2024 11:14-0400 Body weight 57.52 kg Winnie David PA-C Work Phone: [facility] 12-05-2024 11:14-0400 Diastolic blood pressure 95 mm[Hg] Winnie David PA-C Work Phone: [facility] 12-05-2024 11:14-0400 Heart rate 61 /min Winnie David PA-C Work Phone: [facility] 12-05-2024 11:14-0400 SaO2% (BldA) [Mass fraction] 98 % Winnie David PA-C Work Phone: [facility] 12-05-2024 11:14-0400 Systolic blood pressure 146 mm[Hg] Winnie David PA-C Work Phone: [facility] 11-25-2022 16:08-0400 Body temperature 97.11 [degF] Josefa Serna APRN.SOFTWARE DEVELOPMENT PROJECT MANAGER Work Phone: [facility] 11-25-2022 16:08-0400 Body weight 67.04 kg Josefa Serna APRN.SOFTWARE DEVELOPMENT PROJECT MANAGER Work Phone: [facility] 11-25-2022 16:08-0400 Diastolic blood pressure 94 mm[Hg] Josefa Serna APRN.SOFTWARE DEVELOPMENT PROJECT MANAGER Work Phone: [facility] 11-25-2022 16:08-0400 Heart rate 81 /min Josefa Serna APRN.SOFTWARE DEVELOPMENT PROJECT MANAGER Work Phone: [facility] 11-25-2022 16:08-0400 Respiratory rate 18 /min Josefa Serna APRN.SOFTWARE DEVELOPMENT PROJECT MANAGER Work Phone: [facility] 11-25-2022 16:08-0400 SaO2% (BldA) [Mass fraction] 98 % Josefa Serna APRN.SOFTWARE DEVELOPMENT PROJECT MANAGER Work Phone: [facility] 11-25-2022 16:08-0400 Systolic blood pressure 146 mm[Hg] Josefa Serna APRN.SOFTWARE DEVELOPMENT PROJECT MANAGER Work Phone: [facility] 11-08-2022 14:58-0500 Body temperature 97.9 [degF] Lizette Praisler-Wood GAS COLLECTION SYSTEM OPERATOR.SOFTWARE DEVELOPMENT PROJECT MANAGER Work Phone: [facility] 11-08-2022 14:58-0500 Body weight 64.41 kg Lizette Praisler-Wood GAS COLLECTION SYSTEM OPERATOR.SOFTWARE DEVELOPMENT PROJECT MANAGER Work Phone: [facility] 11-08-2022 14:58-0500 Diastolic blood pressure 74 mm[Hg] Lizette Praisler-Wood GAS COLLECTION SYSTEM OPERATOR.SOFTWARE DEVELOPMENT PROJECT MANAGER Work Phone: [facility] 11-08-2022 14:58-0500 Heart rate 68 /min Lizette Praisler-Wood GAS COLLECTION SYSTEM OPERATOR.SOFTWARE DEVELOPMENT PROJECT MANAGER Work Phone: [facility] 11-08-2022 14:58-0500 Respiratory rate 16 /min Lizette Praisler-Wood GAS COLLECTION SYSTEM OPERATOR.SOFTWARE DEVELOPMENT PROJECT MANAGER Work Phone: [facility] 11-08-2022 14:58-0500 SaO2% (BldA) [Mass fraction] 98 % Lizette Praisler-Wood GAS COLLECTION SYSTEM OPERATOR.SOFTWARE DEVELOPMENT PROJECT MANAGER Work Phone: [facility] 11-08-2022 14:58-0500 Systolic blood pressure 120 mm[Hg] Lizette Praisler-Wood GAS COLLECTION SYSTEM OPERATOR.SOFTWARE DEVELOPMENT PROJECT MANAGER Work Phone: [facility] 09-23-2022 18:52-0500 Diastolic Blood Pressure Non-Invasive 86 1 CLAUDIO SMITH MD [facility] 09-23-2022 18:52-0500 Heart rate 80 /min CLAUDIO SMITH MD [facility] 09-23-2022 18:52-0500 Respiratory rate 16 /min CLAUDIO SMITH MD [facility] 09-23-2022 18:52-0500 Systolic Blood Pressure Non-Invasive 119 1 CLAUDIO SMITH MD [facility] 09-23-2022 17:35-0500 Body height 150 cm CLAUDIO SMITH MD [facility] 09-23-2022 17:35-0500 Body temperature 99.5 [degF] CLAUDIO SMITH MD [facility] 09-23-2022 17:35-0500 Body weight 65.9 kg CLAUDIO SMITH MD [facility] 09-23-2022 17:35-0500 Diastolic Blood Pressure Non-Invasive 86 1 CLAUDIO SMITH MD [facility] 09-23-2022 17:35-0500 Heart rate 98 /min CLAUDIO SMITH MD [facility] 09-23-2022 17:35-0500 Respiratory rate 20 /min CLAUDIO SMITH MD [facility] 09-23-2022 17:35-0500 Systolic Blood Pressure Non-Invasive 141 1 CLAUDIO SMITH MD [facility] 07-22-2022 10:58-0500 Body temperature 86.2 [degF] Dr. Yady Vera Work Phone: [facility] Work Phone: 07-22-2022 10:58-0500 Body weight 62.[address] Yady Vera Work Phone: [facility] Work Phone: 07-22-2022 10:58-0500 Diastolic blood pressure 86 mm[Hg] Dr. Yady Vera Work Phone: [facility] Work Phone: 07-22-2022 10:58-0500 Heart rate 64 /min Dr. Yady Vera Work Phone: [facility] Work Phone: 07-22-2022 10:58-0500 Respiratory rate 18 /min Dr. Yady Vera Work Phone: [facility] Work Phone: 07-22-2022 10:58-0500 SaO2% (BldA) [Mass fraction] 98 % Dr. Yady Vera Work Phone: [facility] Work Phone: 07-22-2022 10:58-0500 Systolic blood pressure 138 mm[Hg] Dr. Yady Vera Work Phone: [facility] Work Phone: 04-12-2022 11:10-0400 Body height 149.[address] Yady Vera Work Phone: [facility] Work Phone: 04-12-2022 11:10-0400 Body mass index (BMI) [Ratio] 26.6 kg/m2 Dr. Yady Vera Work Phone: [facility] Work Phone: 04-12-2022 11:10-0400 Body temperature 97 [degF] Dr. Yady Vera Work Phone: [facility] Work Phone: 04-12-2022 11:10-0400 Body weight 59.[address] Yady Vera Work Phone: [facility] Work Phone: 04-12-2022 11:10-0400 Diastolic blood pressure 90 mm[Hg] Dr. Yady Vera Work Phone: [facility] Work Phone: 04-12-2022 11:10-0400 Heart rate 84 /min Dr. Yady Vera Work Phone: [facility] Work Phone: 04-12-2022 11:10-0400 Respiratory rate 16 /min Dr. Yady Vera Work Phone: [facility] Work Phone: 04-12-2022 11:10-0400 SaO2% (BldA) [Mass fraction] 97 % Dr. Yady Vera Work Phone: [facility] Work Phone: 04-12-2022 11:10-0400 Systolic blood pressure 146 mm[Hg] Dr. Yady Vera Work Phone: [facility] Work Phone: 02-17-2022 13:53-0400 Body height 149.[address] Yady Vera Work Phone: [facility] Work Phone: 02-14-2022 12:49-0400 Body mass index (BMI) [Ratio] 27.4 kg/m2 Dr. Yady Vera Work Phone: [facility] Work Phone: 02-14-2022 12:49-0400 Body temperature 97 [degF] Dr. Yady Vera Work Phone: [facility] Work Phone: 02-14-2022 12:49-0400 Body weight 61.[address] Yady Vera Work Phone: [facility] Work Phone: 02-14-2022 12:49-0400 Diastolic blood pressure 84 mm[Hg] Dr. Yady Vera Work Phone: [facility] Work Phone: 02-14-2022 12:49-0400 Heart rate 80 /min Dr. Yady Vera Work Phone: [facility] Work Phone: 02-14-2022 12:49-0400 Respiratory rate 16 /min Dr. Yady Vera Work Phone: [facility] Work Phone: 02-14-2022 12:49-0400 SaO2% (BldA) [Mass fraction] 96 % Dr. Yady Vera Work Phone: [facility] Work Phone: 02-14-2022 12:49-0400 Systolic blood pressure 130 mm[Hg] Dr. Yady Vera Work Phone: [facility] Work Phone: 01-26-2022 14:57-0400 Body mass index (BMI) [Ratio] 28.1 kg/m2 Dr. Yady Vera Work Phone: [facility] Work Phone: 01-26-2022 14:57-0400 Body temperature 97.2 [degF] Dr. Yady Vera Work Phone: [facility] Work Phone: 01-26-2022 14:57-0400 Body weight 63.[address] Yady Vera Work Phone: [facility] Work Phone: 01-26-2022 14:57-0400 Diastolic blood pressure 72 mm[Hg] Dr. Yady Vera Work Phone: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 CONTROLLED (<130/80) BP CON TROLLED (<130/80) [facility] Start: 09-04-2023 Advance Directive Discussion Advance Directive Discussion [facility] Start: 09-04-2022 ADVANCE DIRECTIVE DISCUSSION ADVANCE DIRECTIVE DISCUSSION [facility] Start: 07-22-2022 Patient referral [facility] Work Phone: Start: 05-03-2022 DIABETES SCREEN DIABETES SCREEN [facility] Start: 2019 BONE DENSITY BONE DENSITY [facility] Start: 2019 Screening for osteoporosis Bone Density Screening [facility] Start: 2014 RSV Vaccine (1 - Ris k 60-74 years 1-dose series) RSV Vaccine (1 - Risk 60-74 years 1-dose series) [facility] Start: 12-12-2013 LIPID SCREEN LIPID SCREEN [facility] Start: 11-01-2003 Colonoscopy COLONOSCOPY [facility] Start: 11-01-2003 COLORECTAL CANCER SCREENING COLORECTAL CANCER SCREENING [facility] Start: 11-01-2003 Screening for malign ant neoplasm of colon [facility] Start: 1999 COLOGUARD (FIT-DNA) COLOGUARD (FIT-D NA) [facility] Start: [address] COLONOGRAPHY [facility] Start: 1999 FECAL OCCULT BLOOD FECAL OCCULT BLOO D [facility] Start: 1999 Screening for malign ant neoplasm of colon [facility] Start: 1999 SIGMOIDOSCOPY SIGMOIDOSCOPY [facility] Start: 1994 Mammography MAMMOGRAM [facility] Start: 1994 Screening for malign ant neoplasm of breast Mammogram Screening [facility] Start: 1984 Zoledronic acid therapy ALPHA- 1 ANTITRYPSIN DEFICIENCY SCREENING [facility] Start: 1973 SHINGRIX VACCINE (1 of 2) MATT GRIX VACCINE (1 of 2) [facility] Start: 1973 Urine microalbumin profile [facility] Start: 1972 ANNUAL PCP TEAM [employer] RO[employer] ATTENDANT JOSIAH DISEASE VISIT ANNUAL PCP TEAM CHRONIC DISEASE VISIT [facility] Start: 1972 BP CONTROLLED (<130/80) BP CON TROLLED (<130/80) [facility] Start: 1972 HEPATITIS C SCREENING HEPATITIS C [facility] Start: 1972 Hepatitis C screening Hepatitis C [facility] Start: 1972 SPIROMETRY SPIROMETRY [facility] Start: 1965 Screening for malign ant neoplasm of cervix Cervical Cancer Screening [facility] Start: 1960 PNEUMOCOCCAL: 65+ (1 - PCV) PNEUMOCOCCAL: 65+ (1 - PCV) [facility] End: 01-04-2026 BD DXA TRABECULAR BONE SCORE (TBS) BD DXA TRABECULAR BONE SCORE (TBS) Radiology Routine Age-related osteoporosis without current pathological fracture Rheumatoid arthritis, involving unspecified site, unspecified whether rheumatoid factor present (HCC) 1 Occurrences starting 12/05/2024 until 01/04/2026 [facility] Comment on above: 1 Occurrences starti ng 12/05/2024 until 01/04/2026 End: 03-06-2026 C reactive protein [Mass/volume] in Serum or Plasma C-REACTIVE PROTEIN Lab Routine Rheumatoid arthritis, involving unspecified site, unspecified whether rheumatoid factor present (HCC) Every 3 months for 3 Occurrences starting 03/06/2025 until 03/06/2026 [facility] Comment on above: Every 3 months for 3 Occurrences starting 03/06/2025 until 03/06/2026 End: 03-06-2026 CBC W Auto Differential panel - Blood COMPLETE BLOOD COUNT AND DIFFERENTIAL Lab Routine Rheumatoid arthritis, involving unspecified site, unspecified whether rheumatoid factor present (HCC) Every 3 months for 3 Occurrences starting 03/06/2025 until 03/06/2026 [facility] Work Phone: Comment on above: Every 3 months for 3 Occurrences starting 03/06/2025 until 03/06/2026 End: 03-06-2026 Comprehensive metabolic 2000 panel - Serum or Plasma COMPREHENSIVE METABOLIC PANEL Lab Routine Rheumatoid arthritis, involving unspecified site, unspecified whether rheumatoid factor present (HCC) Every 3 months for 3 Occurrences starting 03/06/2025 until 03/06/2026 [facility] Comment on above: Every 3 months for 3 Occurrences starting 03/06/2025 until 03/06/2026 CT Chest [facility] Work Phone: End: 01-04-2026 DXA Skeletal system.axial Views for bone density DXA-AXIAL SKELETON Radiology Routine Age-related osteoporosis without current pathological fracture Rheumatoid arthritis, involving unspecified site, unspecified whether rheumatoid factor present (HCC) 1 Occurrences starting 12/05/2024 until 01/04/2026 [facility] Work Phone: Comment on above: 1 Occurrences starti ng 12/05/2024 until 01/04/2026 End: 03-06-2026 Erythrocyte sedimentation rate SEDIMENTATION RATE, WESTERGREN Lab Routine Rheumatoid arthritis, involving unspecified site, unspecified whether rheumatoid factor present (HCC) Every 3 months for 3 Occurrences starting 03/06/2025 until 03/06/2026 [facility] Comment on above: Every 3 months for 3 Occurrences starting 03/06/2025 until 03/06/2026 Patient referral [facility] Work Phone: Tobacco use cessatio n education [facility] Work Phone: [facility] Immunizations Immunization Date Immunization Notes Care Provider Fa cili 08-21-2024 influenza virus vacc ine, unspecified formulation Winnie Hernandez PA-C Work Phone: [facility] 06-27-2022 influenza virus vacc ine, unspecified formulation Xr [place] Work Phone: [facility] 07-09-2021 Covid (Pfizer) Dr. Yady Vera Work Phone: [facility] Work Phone: 06-25-[address] Yady Vera Work Phone: [facility] Work Phone: 12-01-2020 Covid (Pfizer) Dr. Yady Vera Work Phone: [facility] Work Phone: 11-10-2020 Covid (Pfizer) Dr. Yady Vera Work Phone: [facility] Work Phone: 05-17-[address] Yady Vera Work Phone: [facility] Work Phone: 06-17-2019 influenza, seasonal, injectable Dr. Yady Vera Work Phone: [facility] Work Phone: 06-17-2019 pneumococcal polysaccharide vaccine, [address] Yady Vera Work Phone: [facility] Work Phone: Payers Date Payer Category Payer Self-pay [id number] 2023 Medicare (Managed Care) AEJASON ADHIKARI [id number] 2023 Medicare [id number] 2022 Medicaid [id number] 2022 Medicare [id number] 2022 Medicaid [id number] 2022 Private Health Insurance [id number] 2019 Unknown [id number] [id number]. [id number] 2016 Unknown [id number] 1954 Unknown [id number] 2.16.840.1.154713.3.579.2. 627 Medicare [id number] Private Health Insurance [id number] Unknown [id number] Unknown [id number] 2.16.840.1.495546.3.579.2. 462 Unknown [id number] 2.16.840.1.187925.3.579.2. 462 Unknown [id number] 2.16.840.1.508659.3.579.2. 462 Unknown [id number] 2.16.840.1.956251.3.579.2. 462 Unknown [id number] 2.16.840.1.801409.3.579.2. 462 Unknown [id number] 2.16.840.1.780013.3.579.2. 462 Unknown [id number] 2.16840.1.832309.3.579.2. 462 Unknown [id number] 2.16.840.1.731007.3.579.2. 462 Unknown [id number] 2.16840.1.279831.3.579.2. 462 Unknown [id number] 2.840.1.445706.3.579.2. 462 Unknown [id number] 2.840.1.857954.3.579.2. 462 Unknown [id number] 2.840.1.818047.3.579.2. 462 Unknown [id number] 2.840.1.523546.3.579.2. 462 Unknown [id number] 2.840.1.091065.3.579.2. 462 Unknown [id number] 2.840.1.918213.3.579.2. 462 Unknown [id number] 2.840.1.972472.3.579.2. 462 Unknown [id number] 2.840.1.534645.3.579.2. 462 Unknown [id number] 2.840.1.064575.3.579.2. 462 Unknown [id number] 2.840.1.650282.3.579.2. 462 Unknown [id number] 2.840.1.505654.3.579.2. 462 Unknown [id number] 2.840.1.566460.3.579.2. 462 Unknown [id number] 2.840.1.180974.3.579.2. 462 Unknown [id number] 2.16840.1.096567.3.579.2. 462 Unknown [id number] 2.840.1.856279.3.579.2. 462 Unknown [id number] 2.16.840.1.496971.3.579.2. 462 Unknown [id number] 2.16.840.1.734796.3.579.2. 462 Unknown [id number] 2.16.840.1.126985.3.579.2. 462 Unknown [id number] 2.16.840.1.731219.3.579.2. 462 Unknown [id number] 2.16.840.1.320343.3.579.2. 462 Unknown [id number] 2.16.840.1.048080.3.579.2. 462 Unknown [id number] 2.16.840.1.917740.3.579.2. 462 Unknown [id number] 2.16.840.1.732118.3.579.2. 462 Unknown [id number] 2.16840.1.097537.3.579.2. 462 Unknown [id number] 2.16.840.1.337600.3.579.2. 462 Unknown [id number] 2.16.840.1.280678.3.579.2. 462 Unknown [id number] 2.16.840.1.490913.3.579.2. 462 Unknown [id number] 2.16.840.1.299241.3.579.2. 462 Unknown [id number] 2.16.840.1.090550.3.579.2. 462 Unknown [id number] 2.16.840.1.810788.3.579.2. 462 Unknown [id number] 2.16.840.1.258917.3.579.2. 462 Unknown [id number] 2.16.840.1.482389.3.579.2. 462 Unknown [id number] 2.16.840.1.943641.3.579.2. 462 Unknown [id number] 2.16.840.1.418713.3.579.2. 462 Unknown [id number] 2.16.840.1.184317.3.579.2. 462 Unknown [id number] 2.16.840.1.431622.3.579.2. 462 Unknown [id number] 2.16.840.1.905687.3.579.2. 462 Unknown [id number] 2.16.840.1.680057.3.579.2. 462 Unknown [id number] 2.16.840.1.445963.3.579.2. 462 Unknown [id number] 2.16.840.1.412491.3.579.2. 462 Unknown [id number] 2.16.840.1.101395.3.579.2. 462 Unknown [id number] 2.16.840.1.795571.3.579.2. 462 Unknown [id number] 2.16.840.1.593802.3.579.2. 462 Unknown [id number] 2.16.840.1.938318.3.579.2. 462 Unknown [id number] 2.16.840.1.247406.3.579.2. 462 Unknown [id number] 2.16.840.1.987892.3.579.2. 462 Unknown [id number] 2.16.840.1.303310.3.579.2. 462 Social History Date Type Detail Facility Start: 11-26-2021 End: 07-22-2022 Tobacco smoking status NHIS Unknown if ever smoked [facility] Work Phone: Start: 07-17-2020 Non-smoker [facility] Work Phone: Start: 1955 Sex Assigned At Female [facility] Work Phone: Start: 09-23-2022 Tobacco smoking status Heavy t obacco smoker (finding) [facility] Sex Assigned At Sex [facility] Start: 11-08-2022 Tobacco smoking stat us CTIS Smokes tobacco daily [facility] Work Phone: History of tobacco use Cigarette Smoker [facility] Work Phone: Start: 11-08-2022 End: 12-05-2024 Cigarettes smoked current (pack per day) - Reported 0.5 [facility] Start: 11-08-2022 End: 12-05-2024 Tobacco use and exposure User of smokeless tobacco [facility] Work Phone: Start: 11-08-2022 End: 11-25-2022 Alcohol intake Lifetime non-drinker (finding) [facility] Start: 04-24-2019 History SDOH Alcohol Frequency 1 [facility] Start: 11-08-2022 Tobacco Comment pt smoke half pack per day [facility] Start: 1955 Sex Assigned At Not on file [facility] Start: 04-24-2019 End: 12-05-2024 Alcohol Use Disorder Identification Test - Consumption [AUDIT-C] [facility] How often to you hav e a drink containing alcohol? Never [facility] Start: 08-05-2012 Average Number of Drinks Not on file [facility] Start: 12-05-2024 [facility] History of tobacco use Current smoker [facility] Start: 12-05-2024 End: 03-06-2025 Alcoholic beverage intake Ex-drinker (finding) [facility] Start: 12-05-2024 Alcohol Comment daily -none si nce 05/2022 [facility] Medical Equipment Procedure Code Equipment Code Equipment Origin al Text Equipment Identifier Dates Insertion, spinal cord stimulator, permanent MED INTELLIS ADAPTIVE STIM FDA Start: 03-09-2020 Insertion, spinal cord stimulator, permanent Vectris Sure Scan MRI LEAD KIT FDA Start: 03-09-2020 Insertion, spinal cord stimulator, permanent Vectris Sure Scan MRI LEAD KIT FDA Start: 03-09-2020 Insertion, spinal cord stimulator, permanent MED INTELLIS ADAPTIVE STIM FDA Start: 03-09-2020 Insertion, spinal cord stimulator, permanent Vectris Sure Scan MRI LEAD KIT FDA Start: 03-09-2020 Insertion, spinal cord stimulator, permanent Vectris Sure Scan MRI LEAD KIT FDA Start: 03-09-2020 Insertion, spinal cord stimulator, permanent MED INTELLIS ADAPTIVE STIM FDA Start: 03-09-2020 Insertion, spinal cord stimulator, permanent Vectris Sure Scan MRI LEAD KIT FDA Start: 03-09-2020 Insertion, spinal cord stimulator, permanent Vectris Sure Scan MRI LEAD KIT FDA Start: 03-09-2020 Insertion, spinal cord stimulator, permanent MED INTELLIS ADAPTIVE STIM FDA Start: 03-09-2020 Insertion, spinal cord stimulator, permanent Vectris Sure Scan MRI LEAD KIT FDA Start: 03-09-2020 Insertion, spinal cord stimulator, permanent Vectris Sure Scan MRI LEAD KIT FDA Start: 03-09-2020 Insertion, spinal cord stimulator, permanent MED INTELLIS ADAPTIVE STIM FDA Start: 03-09-2020 Insertion, spinal cord stimulator, permanent Vectris Sure Scan MRI LEAD KIT FDA Start: 03-09-2020 Insertion, spinal cord stimulator, permanent Vectris Sure Scan MRI LEAD KIT FDA Start: 03-09-2020 Insertion, spinal cord stimulator, permanent MED INTELLIS ADAPTIVE STIM FDA Start: 03-09-2020 Insertion, spinal cord stimulator, permanent Vectris Sure Scan MRI LEAD KIT FDA Start: 03-09-2020 Insertion, spinal cord stimulator, permanent Vectris Sure Scan MRI LEAD KIT FDA Start: 03-09-2020 Insertion, spinal cord stimulator, permanent MED INTELLIS ADAPTIVE STIM FDA Start: 03-09-2020 Insertion, spinal cord stimulator, permanent Vectris Sure Scan MRI LEAD KIT FDA Start: 03-09-2020 Insertion, spinal cord stimulator, permanent Vectris Sure Scan MRI LEAD KIT FDA Start: 03-09-2020 Insertion, spinal cord stimulator, permanent MED INTELLIS ADAPTIVE STIM FDA Start: 03-09-2020 Insertion, spinal cord stimulator, permanent Vectris Sure Scan MRI LEAD KIT FDA Start: 03-09-2020 Insertion, spinal cord stimulator, permanent Vectris Sure Scan MRI LEAD KIT FDA Start: 03-09-2020 Insertion, spinal cord stimulator, for trial VECTRIS TRIAL LEAD FDA Start: 02-03-2020 Insertion, spinal cord stimulator, for trial VECTRIS TRIAL LEAD FDA Start: 02-03-2020 Insertion, spinal cord stimulator, for trial VECTRIS TRIAL LEAD FDA Start: 02-03-2020 Insertion, spinal cord stimulator, for trial VECTRIS TRIAL LEAD FDA Start: 02-03-2020 Insertion, spinal cord stimulator, for trial VECTRIS TRIAL LEAD FDA Start: 02-03-2020 Insertion, spinal cord stimulator, for trial VECTRIS TRIAL LEAD FDA Start: 02-03-2020 Insertion, spinal cord stimulator, for trial VECTRIS TRIAL LEAD FDA Start: 02-03-2020 Insertion, spinal cord stimulator, for trial VECTRIS TRIAL LEAD FDA Start: 02-03-2020 Insertion, spinal cord stimulator, for trial VECTRIS TRIAL LEAD FDA Start: 02-03-2020 Insertion, spinal cord stimulator, for trial VECTRIS TRIAL LEAD FDA Start: 02-03-2020 Insertion, spinal cord stimulator, for trial VECTRIS TRIAL LEAD FDA Start: 02-03-2020 Insertion, spinal cord stimulator, for trial VECTRIS TRIAL LEAD FDA Start: 02-03-2020 Insertion, spinal cord stimulator, for trial VECTRIS TRIAL LEAD FDA Start: 02-03-2020 Insertion, spinal cord stimulator, for trial VECTRIS TRIAL LEAD FDA Start: 02-03-2020 Insertion, spinal cord stimulator, for trial VECTRIS TRIAL LEAD FDA Start: 02-03-2020 Insertion, spinal cord stimulator, for trial VECTRIS TRIAL LEAD FDA Start: 02-03-2020 Functional Status Date Assessment Result Facility 09-23-2022 Functional Status Up ad manpreet [facility] spital [facility] 09-23-2022 Functional Status Standard Safet y ID band on, Allergy Band on, Call device within reach, Bed in low position, Wheels locked, Upper/Half-Length side-rails up, Visitor at bedside [facility] Mental Status Date Assessment Result Facility 09-23-2022 Mental Status Orientation Oriented x 4 [facility] 09-23-2022 [facility] Notes 09-23-2022 to 03-06-2025 Patient InstructionsWinnie Hernandez PA-C - 03/06/2025 12:52 PM EDTTelephone Encounter - Whit Jang MA - 12/06/2024 2:48 PM EDTTelephone Encounter - Whit Jang MA - 12/06/2024 2:48 PM EDT Note Date & Type Note Facility 03-06-2025 Instructions Winnie Hernandez PA-C - 03/06/2025 1:29 PM EDT Labs due in May documented in this encounter [facility] 03-06-2025 Note HNO ID: [id number] Author: WINNIE HERNANDEZ PA-C Service: ? Author Type: Physician [employer] Sawyer Type: Progress Notes Filed: 03/06/2025 13:57 Note Text: Rheumatology Clinic Visit March 06, 2025 Last seen: 12/05/24 CC: Follow Up HPI: Lele Pang is a 69 year old female who follows with rheumatology for Rheumatoid arthritis. BRIEF RHEUM History: Diagnosed with RA in 2015 though [facility] after multiple trigger finger surgeries and elevated rheumatologic markers. - Initially treated with methotrexate injections, which was later switched to leflunomide -history of osteoarthritis in her back and hips, for which she receives injections. She recently had a lumbar injection for severe sciatica with pain management at [facility], which significantly limited her mobility and daily activities. She has degenerative disc disease, spinal stenosis, and a history of spinal fusion. She reports permanent nerve damage in her left foot following the fusion surgery, characterized by numbness and inability to move the foot. She is also on meloxicam for back pain and uses prednisone 5 mg during flare-ups. - Sees Dr. Zuñiga, a neurologist, for tremors and nerve issues. - She has a history of asthma in childhood and believes she now has COPD or emphysema. She undergoes annual screening low-dose CT scans of her lungs, with the next one scheduled for January. She has a history of osteoporosis, diagnosed in 2021, with a T-score of -2.5 in her lumbar spine. - alendronate since 2021 Current Rheum treatment: Leflunomide 20 mg daily Bone Health Treatment: Fosamax through PCP- started 2021 - Recent BMD dated 12/18/24 - Stable (lumbar spine improved 3%, R Total hip stable) Past treatments: Methotrexate - stopped due to allergic reaction (rash, injection site reaction, skin dicoloration) Current clinical: Not doing well currently. She is scheduled for back surgery 03/17/25. Insurance denied the claim unless she is nicotine free. On barbiturate through her neurologist for her tremors. Over the past few weeks she has been more depressed, and feeling awful. She was having thoughts of why am I here. Has contacted her psychiatrist. She feels she has been withdrawing from stopping that medication. She has feeling of indifference. Also her EKG showed something, so now she has to have stress test and ECHO done all through [facility]. Mentally she feels like she is going through a lot. She is Her psychologist is Hannah Rojo. They are adjusting her Ritalin - after she stops it she feels 'off' She was diagnosed with ADD in 2017 Rheumatoid is doing OK. No recent flares. Tolerating meds. No recent infections. No night sweats, unintentional weight loss, or GI side effects. Monitoring: Labs 02/26 - OK no concerns Blood TB Negative (02/11/2025) Remote Hep Latest Ref Rng AND Units 02/11/2025 Hepatitis Screen Hep B Core Ab, Total Negative Negative Hep B Surf Ab Qual Negative Hep C Antibody IA Negative Negative Hep B Surface Ag Negative Negative Last Bone Density: 12/18/2024 at [facility] - LS T-score -2.2 stable (3% increase) - RFN T-score -1.7 - R Total Hip T-score -1.4 stable (0.3% decrease) Last Uric acid Latest Ref Rng AND Units 01/27/2013 Uric Acid Uric Acid 2.5 - 6.2 mg/dL 6.7 Sed rate/CRP Latest Ref Rng AND Units 09/26/2023 02/11/2025 ESR, WSR WSR 0 - 20 mm/hr 2 2 Latest Ref Rng AND Units 02/11/2025 CRP CRP <0.9 mg/dL <0.3 OUTSIDE STUDIES / DATA Labs done at [facility]. 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 No suspicious change from prior exams no change overall lung assessment lung RADS category 1 continue annual X-ray right hand November 16, 2018 Impression: No erosive or significant proliferative arthropathy X-ray left hand November 16, 2018 Impression no erosive or proliferative arthropathy X-ray left hand Jan 06 2020 normal x-ray of the hand findings are similar to previous study X-ray right hand January 06, 2020 Mild degenerative changes in the radiocarpal articulation no additional erosive or degenerative changes are apparent findings to previous study X-ray right foot November 16, 2018 mild arthrosis of the first MTP joint no erosive fe (more content not included)... [facility] 03-06-2025 History of Presen t illness Narrative Images from the original note were not included. Rheumatology Clinic Visit March 06, 2025 Last seen: 12/05/24 CC: Follow Up HPI: Lele Pang is a 69 year old female who follows with rheumatology for Rheumatoid arthritis. BRIEF RHEUM History: Diagnosed with RA in 2015 though [facility] after multiple trigger finger surgeries and elevated rheumatologic markers. - Initially treated with methotrexate injections, which was later switched to leflunomide -history of osteoarthritis in her back and hips, for which she receives injections. She recently had a lumbar injection for severe sciatica with pain management at [facility], which significantly limited her mobility and daily activities. She has degenerative disc disease, spinal stenosis, and a history of spinal fusion. She reports permanent nerve damage in her left foot following the fusion surgery, characterized by numbness and inability to move the foot. She is also on meloxicam for back pain and uses prednisone 5 mg during flare-ups. - Sees Dr. Zuñiga, a neurologist, for tremors and nerve issues. - She has a history of asthma in childhood and believes she now has COPD or emphysema. She undergoes annual screening low-dose CT scans of her lungs, with the next one scheduled for January. She has a history of osteoporosis, diagnosed in 2021, with a T-score of -2.5 in her lumbar spine. - alendronate since 2022 Current Rheum treatment: Leflunomide 20 mg daily Bone Health Treatment: Fosamax through PCP- started 2021 - Recent BMD dated 12/18/24 - Stable (lumbar spine improved 3%, R Total hip stable) Past treatments: Methotrexate - stopped due to allergic reaction (rash, injection site reaction, skin dicoloration) Current clinical: Not doing well currently. She is scheduled for back surgery 03/17/25. Insurance denied the claim unless she is nicotine free. On barbiturate through her neurologist for her tremors. Over the past few weeks she has been more depressed, and feeling awful. She was having thoughts of why am I here. Has contacted her psychiatrist. She feels she has been withdrawing from stopping that medication. She has feeling of indifference. Also her EKG showed something, so now she has to have stress test and ECHO done all through [facility]. Mentally she feels like she is going through a lot. She is Her psychologist is Hannah Rojo. They are adjusting her Ritalin - after she stops it she feels 'off' She was diagnosed with ADD in 2016 Rheumatoid is doing OK. No recent flares. Tolerating meds. No recent infections. No night sweats, unintentional weight loss, or GI side effects. Monitoring: Labs 02/26 - OK no concerns Blood TB Negative (02/11/2025) Remote Hep Latest Ref Rng & Units 02/11/2025 Hepatitis Screen Hep B Core Ab, Total Negative Negative Hep B Surf Ab Qual Negative Hep C Antibody IA Negative Negative Hep B Surface Ag Negative Negative Last Bone Density: 12/18/2024 at [facility] - LS T-score -2.2 stable (3% increase) - RFN T-score -1.7 - R Total Hip T-score -1.4 stable (0.3% decrease) Last Uric acid Latest Ref Rng & Units 01/27/2013 Uric Acid Uric Acid 2.5 - 6.2 mg/dL 6.7 Sed rate/CRP Latest Ref Rng & Units 09/26/2023 02/11/2025 ESR, WSR WSR 0 - 20 mm/hr 2 2 Latest Ref Rng & Units 02/11/2025 CRP CRP <0.9 mg/dL <0.3 OUTSIDE STUDIES / DATA Labs done at [facility]. 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 No suspicious change from prior exams no change overall lung assessment lung RADS category 1 continue annual X-ray right hand November 16, 2018 Impression: No erosive or significant proliferative arthropathy X-ray left hand November 16, 2018 Impression no erosive or proliferative arthropathy X-ray left hand Jan 06 2020 normal x-ray of the hand findings are similar to previous study X-ray right hand January 06, 2020 Mild degenerative changes in the radiocarpal articulation no additional erosive or degenerative changes are apparent findings to previous study X-ray right foot November 16, 2018 mild arthrosis of the first MTP joint no erosive features X-ray left foot November 14, 2018 mild degenerative arthrosis of the first MTP joint prior bunionectomies suspect old fifth metatarsal fracture DEXA January 16, 2019 Lowest T-score -2.1 in the lumbar spine -Left femur total T-score -1.4 -Left femoral neck T-score -1.9 -Right femur total T-score -1.3 -Right femoral neck T-score -1.9 Osteopenia-no FRAX was calculated DEXA February 17, 2022 Lowest T-score in the lumbar spine -2.5 Right femur total T-score -1.4 right femoral neck total T-score -1.7 Osteoporosis with decline in the lumbar spine Review Of Systems: Review of Systems CONSTITUTION: Positive for: Recent weight change Negative for: Fever HEENT: Negative for: Nosebleeds, Mouth sores, Trouble swallowing and Dry mouth RESPIRATORY: Positive for: Shortness of breath Negative for: Cough and Pain with breathing GASTROINTESTINAL: Negative for: Melena, Diarrhea, Heartburn and Abdominal pain MUSCULOSKELETAL: Positive for: Muscle weakness Negative for: Arthralgias, Myalgias, Joint swelling and Morning Joint Stiffness NEUROLOGICAL: Positive for: Numbness and Memory loss Negative for: Headaches SKIN: Negative for: Rash, Skin changes, Hair loss and Nail changes EYES: Positive for: Eye dryness Negative for: Eye pain, Eye redness and visual disturbance CARDIOVASCULAR: Negative for: Chest pain and Leg swelling GENITOURINARY: Negative for: Dysuria and Hematuria HEMATOLOGIC/LYMPHATIC: Negative for: Swollen glands RAPID 3: DISEASE ACTIVITY: Weighed Score Levels: 0 - 1: Near Remission 1.3 - 2.0: Low Severity 2.3 - 4.0: Moderate Severity 4.3 - 10.0: High Severity 02/27/2025 RAPID-3 Weighed Score RAPID 3 Weighed Score 4.67 (High severity ) PROMIS Assessments 02/27/2025 PROMIS Assessments Physical Health Percentile 22 Mental Health Percentile 9 Pain Score 3 Pain Interference Percentile 14 Fatigue Percentile 46 Physical Function Percentile 24 Patient Health Questionnaire (PHQ-9) PHQ-9 Levels: 0 - 4 Minimal depression 5 - 9 Mild depression 10-14 Moderate depression 15-19 Moderately severe depression 20-27 Severe depression PHQ-2 Score: 1 (0-3) 1. Little interest or pleasure in doing things:: Several days 2. Feeling down, depressed, or hopeless:: Not at all 3. 4. 5. 6. 7. 8. 9. 10. PAST MEDICAL HISTORY Diagnosis Date ADD (attention deficit disorder) Chronic back pain Depression HLD (hyperlipidemia) HTN (hypertension) Rheumatoid aortitis PAST SURGICAL HISTORY Procedure Laterality Date CARPAL TUNNEL Bilateral HYSTERECTOMY HX LUMBAR SPINE FUSION COMBINED 02/2017 L4-S1 [facility] Dr. Arteaga PAST SURGICAL HISTORY OF Left foot surgery-hammertoe, bunionectomy PAST SURGICAL HISTORY OF trigger finger multiple fingers PAST SURGICAL HISTORY OF Bilateral Bone removed bilateral 5th toe PAST SURGICAL HISTORY OF Left Tendon release at the elbow ROTATOR CUFF REPAIR Bilateral Family history: Denies family history of RA, SLE, Psoriasis, and IBD. SOCIAL HISTORY: Marital status: Children: Employment: Tobacco: Tobacco Use: High Risk (03/06/2025) Patient History Smoking Tobacco Use: Former Smokeless Tobacco Use: Current Passive Exposure: Not on file ETOH: Alcohol Use: Not At Risk (04/24/2019) AUDIT-C Frequency of Alcohol Consumption: Never Average Number of Drinks: Not on file Frequency of Binge Drinking: Not on file Allergies: ALLERGIES Allergen Reactions Latex Rash Oxycodone Other: See Comments unable to sleep Penicillins Sierra Sullivan [Alin* Rash Medications: Current Outpatient Medications Medication Sig valsartan (DIOVAN) 320 mg tablet Take 1 tablet by mouth once daily. alendronate (FOSAMAX) 70 mg tablet Take 70 mg by mouth one time a week. aspirin 81 mg cap Take 1 capsule by mouth once daily. REXULTI 1 mg tablet Take 1 mg by mouth daily at bedtime. cyanocobalamin 1,000 mcg/mL Inject 1,000 mcg intramuscularly once every month. desvenlafaxine ER (PRISTIQ) 100 mg 24 hr tablet Take 1 tablet by mouth once daily. furosemide (LASIX) 20 mg tablet Take 20 mg by mouth every morning. methylphenidate (RITALIN) 10 mg tablet Take 10 mg by mouth. Take 1 tablet daily at 2:30 pm methylphenidate CD (METADATE CD) 60 mg biphasic capsule Take 60 mg by mouth every morning. omeprazole (PRILOSEC) 40 mg capsule Take 1 capsule by mouth once daily. potassium chloride ER (KLOR-CON M10) 10 mEq tablet Take 1 tablet by mouth once daily. pregabalin (LYRICA) 100 mg capsule Take 100 mg by mouth three times a day. tiZANidine (ZANAFLEX) 4 mg tablet Take 4 mg by mouth every 8 hours as needed. amLODIPine (NORVASC) 10 mg tablet Take 10 mg by mouth once daily. budesonide-formoterol (SYMBICORT) 80-4.5 mcg/actuation inhaler Inhale 2 puffs as instructed two times a day. albuterol (PROVENTIL) 2.5 mg /3 mL (0.083 %) nebulizer solution as needed for Wheezing/Shortness of Breath. predniSONE (DELTASONE) 5 mg tablet as needed. For flare up of arthritis acyclovir (ZOVIRAX) 400 mg tablet Take 400 mg by mouth. calcium carbonate/vitamin D3 (CALCIUM 600 + D ORAL) Take by mouth. linaCLOtide (LINZESS) 72 mcg capsule Take 1 capsule by mouth once daily. Administer on an empty stomach. Swallow whole; DO NOT crush or chew. pravastatin (PRAVACHOL) 40 mg tablet Take 40 mg by mouth once daily. MULTIVITAMIN TABLET Take one(1) tablet daily. leflunomide (ARAVA) 20 mg tablet Take 1 tablet by mouth once daily. losartan (COZAAR) 100 mg tablet Take 1 tablet by mouth once daily. MIEBO, PF, 100 % drop No current facility-administered medications for this visit. Physical Exam: BP 143/86 (BP Site: Left Arm, BP Position: Sitting, BP Cuff Size: Regular Adult) Pulse 77 Resp 17 Wt 59.1 kg (130 lb 3.2 oz) SpO2 98% BMI 27.21 kg/m Physical Exam Constitutional: General: She is not in acute distress. Appearance: Normal appearance. She is not toxic-appearing. HENT: Head: Normocephalic and atraumatic. Eyes: General: No scleral icterus. Conjunctiva/sclera: Conjunctivae normal. Cardiovascular: Rate and Rhythm: Normal rate and regular rhythm. Pulses: Normal pulses. Heart sounds: Normal heart sounds. Pulmonary: Effort: Pulmonary effort is normal. Breath sounds: Normal breath sounds. No stridor. No wheezing or rales. Musculoskeletal: Cervical back: Normal range of motion and neck supple. No tenderness. Comments: No swelling, synovitis, or TTP in the PIPs, MCPs, wrists, elbows shoulders. No knee effusion or warmth no knee tendenress No swelling, synovitis, or TTP of ankles or feet. L palm ring finger scar of trigger finger release noted, but no erythema or induration. Lymphadenopathy: Cervical: No cervical adenopathy. Skin: General: Skin is warm and dry. Findings: No rash. Neurological: General: No focal deficit present. Mental Status: She is alert. Mental status is at baseline. Psychiatric: Mood and Affect: Mood normal. Behavior: Behavior normal. Thought Content: Thought content normal. Judgment: Judgment normal. Labs Reviewed: AST Date Value Ref Range Status 02/11/2025 24 13 - 35 U/L Final ALT Date Value Ref Range Status 02/11/2025 26 7 - 38 U/L Final Creatinine Date Value Ref Range Status 02/11/2025 0.84 0.58 - 0.96 mg/dL Final CRP Date Value Ref Range Status 02/11/2025 <0.3 <0.9 mg/dL Final Sed Rate, Westergren Date Value Ref Range Status 02/11/2025 2 0 - 20 mm/hr Final 09/26/2023 2 0 - 20 mm/hr Final Rheumatoid Factor Date Value Ref Range Status 09/26/2023 34 (H) <16 IU/mL Final Uric Acid Date Value Ref Range Status 01/27/2013 6.7 (H) 2.5 - 6.2 mg/dL Final Calcium Date Value Ref Range Status 05/03/2019 10.1 8.5 - 10.2 mg/dL Final Calcium, Total Date Value Ref Range Status 02/11/2025 9.8 8.5 - 10.2 mg/dL Final 09/26/2023 10.2 8.5 - 10.2 mg/dL Final Creatinine Date Value Ref Range Status 02/11/2025 0.84 0.58 - 0.96 mg/dL Final 09/26/2023 0.72 0.58 - 0.96 mg/dL Final 05/03/2019 0.70 0.58 - 0.96 mg/dL Final Imaging Reviewed: X-ray right hand November 16, 2018 Impression: No erosive or significant proliferative arthropathy X-ray left hand November 16, 2018 Impression no erosive or proliferative arthropathy X-ray left hand Jan 06 2020 normal x-ray of the hand findings are similar to previous study X-ray right hand January 06, 2020 Mild degenerative changes in the radiocarpal articulation no additional erosive or degenerative changes are apparent findings to previous study X-ray right foot November 16, 2018 mild arthrosis of the first MTP joint no erosive features X-ray left foot November 14, 2018 mild degenerative arthrosis of the first MTP joint prior bunionectomies suspect old fifth metatarsal fracture DEXA January 16, 2019 Lowest T-score -2.1 in the lumbar spine -Left femur total T-score -1.4 -Left femoral neck T-score -1.9 -Right femur total T-score -1.3 -Right femoral neck T-score -1.9 Osteopenia-no FRAX was calculated DEXA February 17, 2022 Lowest T-score in the lumbar spine -2.5 Right femur total T-score -1.4 right femoral neck total T-score -1.7 Osteoporosis with decline in the lumbar spine DEXA 12/18/2024 at [facility] - LS T-score -2.2 stable (3% increase) - RFN T-score -1.7 - R Total Hip T-score -1.4 stable (0.3% decrease) IMPRESSION: # Rheumatoid arthritis, involving unspecified site, unspecified whether rheumatoid factor present (HCC) (primary encounter diagnosis) - diagnosed in 2014 after multiple trigger finger surgeries and positive rheumatoid testng. Initially on methotrexate injections, but with rash and allergic reaction - doing well on leflunomide, hand symptoms well controled, no recent flares #Age-related osteoporosis without current pathological fracture - Recent BMD stable on Fosamax. Treatment Started 2021, would advise she complete full 5 year treatment then drug holiday - Repeat BMD 12/2026 - Continue Calcium - Hold Vitamin D, previous level was still elevated #Fusion of spine, lumbar region # Spinal stenosis of lumbar region, unspecified whether neurogenic claudication present - has surgery scheduled with [facility] if she can pass nicotine testing. - Continue follo up with pain management and spine specialists #Apathic mood - denies SI/thoughts of self harm, but admits feelings of worthlessness. Patient is in conversation with her mental health providers regarding these thoughts and in works of adjusting medications Plan: Continue leflunomide 20 mg daily Labs every 3 months for monitoring of medication Patient to call if she has RA flare Previously advised to get shingles vaccine and yearly flu vaccine. Advised to review leflunomide use with surgeon prior to surgery to be sure OK with continued use during surgery. Follow up 3 months Risks, benefits and alternatives of all new medications prescribed were discussed with patient in detail. Patient was given time to ask questions. All questions were answered. Patient expressed understanding and agreement with the plan above. If results are still pending, patient will be called with results and further recommendations. Medical Decision Making: Medical Decision Making Level: 1 - N/A I spent a total of 30 minutes on the date of the service which included preparing to see the patient, [id number] patient care, completing clinical documentation, obtaining and/or reviewing separately obtained history, performing a medically appropriate examination, counseling and educating the patient/family/caregiver, and ordering medications, tests, or procedures. Winnie Hernandez PA-C documented in this encounter [facility] 12-29-2024 Note HNO ID: [id number] Author: JOSEFA SERNA APRN.SOFTWARE DEVELOPMENT PROJECT MANAGER Service: ? Author Type: Nurse Practitioner Type: Progress Notes Filed: 12/29/2024 13:50 Note Text: Patient came in with complaints of high blood pressure. Patient's been checking it at home. Patient says she is also having blurred vision in the left eye and her head feels weird. In her words. At this time patient is being referred to the emergency room for more thorough evaluation. Patient agreeable to care plan. Patient says she has been getting 195/108 at home. Patient did recently change blood pressure medications. Friend will take her now. [facility] 12-06-2024 Telephone encounter Note 109 pages of records received via fax from [facility]. Can be found under scanned documents. [facility] 12-06-2024 Miscellaneous Notes 109 pages of records received via fax from [facility]. Can be found under scanned documents. Message left on voicemail at [facility] for past records for this patient to be faxed to this office. documented in this encounter [facility] 12-05-2024 Telephone encounter Note Message left on voicemail at [facility] for past records for this patient to be faxed to this office. [facility] 12-05-2024 Instructions Winnie Hernandez PA-C - 12/05/2024 11:54 AM EDT We discussed your rheumatoid arthritis: - Continue taking Leflunomide as prescribed. A 90-day supply has been sent to your pharmacy ([facility] on [address], [address]). - Schedule follow-up labs in January to monitor your liver function and blood counts, as this medication can affect these levels. - Your next appointment with me is scheduled for late January or early February. Please complete your labs prior to this visit. We discussed your osteoporosis: - Continue taking Alendronate (Fosamax) as prescribed to help prevent further bone loss and fractures. - Continue taking calcium and vitamin D supplements daily. - Schedule a bone density test at [facility] before your next visit to monitor your osteoporosis. We discussed your back pain and sciatica: - You recently received a lumbar injection for sciatica. It may take a few days for the medication to take full effect. - Continue following up with your pain management provider for your back and sciatica symptoms. We discussed your COPD/emphysema: - You have a scheduled CT scan of your lungs in January. Please ensure this is completed as planned. We discussed your vaccinations: - Ensure you are up to date on your flu, pneumonia, and shingles vaccines. These are important as rheumatoid arthritis and its treatments can lower your immune system. We discussed your general health: - Your vitamin D levels will be checked with your next round of blood work in January. - Continue taking Linzess as prescribed for constipation. - Continue propranolol for tremors as prescribed by your neurologist. Follow-Up Instructions: - Schedule your next appointment with me for late January or early February. - Complete your labs and bone density test before your next visit. - If you experience any new or worsening symptoms, please contact our office. BONE MINERAL DENSITY PATIENT INSTRUCTIONS ========= Bone mineral density testing measures the amount of calcium in certain parts of your bones. This information determines how strong your bones are. The test is used to detect osteoporosis, a disease in which the bone's mineral content and density are low, increasing a person's risk of fractures. The lumbar spine (lower back) and the hip are the skeletal sites usually examined. For the test, remember that: 1. You cannot take this test if you are . 2. Eat a normal diet on the day of the test. 3. Take your medications as you normally would. 4. DO NOT take calcium supplements (such as Tums) for 24 hours before the test. 5. On the day of the test, leave valuables (jewelry or credit cards) at home. 6. The test should be performed prior to oral, rectal or IV contrast studies, or at least 7 days after any of these studies. For the test, you may be asked to wear a hospital gown. You will lie on your back, on a padded table, in a comfortable position. Generally, you can resume your usual activities immediately. documented in this encounter [facility] 12-05-2024 Note HNO ID: [id number] Author: WINNIE HERNANDEZ PA-C Service: ? Author Type: Physician Optical Glass Sawyer Type: Progress Notes Filed: 12/05/2024 21:46 Note Text: Rheumatology CONSULTATION Date of Service: 12/05/2024 Patient: Lele Pang Medical Record: [id number] Primary Care Physician: Yady Vera MD Last Rheumatology visit: None at [facility] Referring Provider: Daron Zaidi [facility] [id number] Lele Pang is here today at request of Dr. Hernandez specifically for consultation of my opinion in regards to the chief complaint listed below. Correspondence will be shared today via the [facility] electronic health record or through regular mail, where applicable. History of Present Illness Lele is a 69-year-old female with a history of RA, presenting for evaluation and management. She is currently taking leflunomide. Lele is both RF - 34 (09/26/2023) and CCP positive. Pain Evaluation 05/21/2019 05/21/2019 05/21/2019 11/08/2022 11/25/2022 Pain Evaluation Pain Score 7 4 7 5 7 Location Back Hand Stitcher-Left Shoulder-Right Description Aching Aching Sore Radiating;Burning;Dull Duration (#) 5 1 Duration (Timeframe) Days Weeks Frequency Continuous Continuous Intervention Declined Medication Medication Medication;Heat;Cold Patient-Entered Data None today Review of Systems ROS RHEUMATOLOGYAll other reviewed and negative other than HPI. Past Medical History No past medical history on file. Past Surgical History PAST SURGICAL HISTORY Procedure Laterality Date CARPAL TUNNEL Bilateral HYSTERECTOMY HX LUMBAR SPINE FUSION COMBINED 02/2017 L4-S1 [facility] Dr. Arteaga PAST SURGICAL HISTORY OF Left foot surgery-hammertoe, bunionectomy PAST SURGICAL HISTORY OF trigger finger multiple fingers PAST SURGICAL HISTORY OF Bilateral Bone removed bilateral 5th toe PAST SURGICAL HISTORY OF Left Tendon release at the elbow ROTATOR CUFF REPAIR Bilateral Family History FAMILY HISTORY Problem Relation Age of Onset Alzheimer's Disease Mother Heart Attack Father Alcohol/Drug Father Diabetes Sister No Known Problems Brother Diabetes Sister No Known Problems Sister Social History Social History Tobacco Use Smoking status: Former Current packs/day: 0.50 Types: Cigarettes Smokeless tobacco: Current Tobacco comments: pt smoke half pack per day Vaping Use Vaping status: current everyday user Substances: Nicotine, Flavoring Substance Use Topics Alcohol use: Not Currently Comment: daily -none since 05/2022 Drug use: Never Current Medications Current Outpatient Medications Medication Sig alendronate (FOSAMAX) 70 mg tablet Take 70 mg by mouth one time a week. aspirin 81 mg cap Take 1 capsule by mouth once daily. REXULTI 1 mg tablet Take 1 mg by mouth daily at bedtime. cyanocobalamin 1,000 mcg/mL Inject 1,000 mcg intramuscularly once every month. desvenlafaxine ER (PRISTIQ) 100 mg 24 hr tablet Take 1 tablet by mouth once daily. furosemide (LASIX) 20 mg tablet Take 20 mg by mouth every morning. losartan (COZAAR) 100 mg tablet Take 1 tablet by mouth once daily. meloxicam (MOBIC) 7.5 mg tablet Take 7.5 mg by mouth two times a day as needed. methylphenidate (RITALIN) 10 mg tablet Take 10 mg by mouth. Take 1 tablet daily at 2:30 pm methylphenidate CD (METADATE CD) 60 mg biphasic capsule Take 60 mg by mouth every morning. omeprazole (PRILOSEC) 40 mg capsule Take 1 capsule by mouth once daily. MIEBO, PF, 100 % drop potassium chloride ER (KLOR-CON M10) 10 mEq tablet Take 1 tablet by mouth once daily. pregabalin (LYRICA) 100 mg capsule Take 100 mg by mouth three times a day. propranolol (INDERAL) 20 mg tablet Take 1 tablet by mouth every 12 hours. tiZANidine (ZANAFLEX) 4 mg tablet Take 4 mg by mouth every 8 hours as needed. amLODIPine (NORVASC) 10 mg tablet Take 10 mg by mouth once daily. budesonide-formoterol (SYMBICORT) 80-4.5 mcg/actuation inhaler Inhale 2 puffs as instructed two times a day. semaglutide (OZEMPIC SUBCUTANEOUS) Inject subcutaneously one time a week. predniSONE (DELTASONE) 5 mg tablet as needed. For flare up of arthritis acyclovir (ZOVIRAX) 400 mg tablet Take 400 mg by mouth. calcium carbonate/vitamin D3 (CALCIUM 600 + D ORAL) Take by mouth. linaCLOtide (LINZESS) 72 mcg capsule Take 1 capsule by mouth once daily. Administer on an empty stomach. Swallow whole; DO NOT crush or chew. leflunomide (ARAVA) 20 mg tablet Take 1 tablet by mouth once daily. albuterol (PROVENTIL) 2.5 mg /3 mL (0.083 %) nebulizer solution as needed for Wheezing/Shortness of Breath. cholecalciferol (VITAMIN D-3) 5,000 unit tab Take 5,000 Units by mouth once daily. amphetamine-dextroamphetamine XR (ADDERALL XR) 30 mg 24 hr capsule Take 30 mg by mouth once daily. (Patient not taking: Reported on 12/05/2024) pravastatin (PRAVACHOL) 40 mg tablet Take 40 mg by mouth once daily. (Patient not taking: Reported on 12/05/2024) (more content not included)... [facility] 12-05-2024 History of Presen t illness Narrative Images from the original note were not included. Rheumatology CONSULTATION Date of Service: 12/05/2024 Patient: Lele Pang Medical Record: [id number] Primary Care Physician: Yady Vera MD Last Rheumatology visit: None at [facility] Referring Provider: Daron Hernandez [address] [facility] [address] Lele Pang is here today at request of Dr. Hernandez specifically for consultation of my opinion in regards to the chief complaint listed below. Correspondence will be shared today via the [facility] electronic health record or through regular mail, where applicable. History of Present Illness Lele is a 69-year-old female with a history of RA, presenting for evaluation and management. She is currently taking leflunomide. Lele is both RF - 34 (09/26/2023) and CCP positive. Pain Evaluation 05/21/2019 05/21/2019 05/21/2019 11/08/2022 11/25/2022 Pain Evaluation Pain Score 7 4 7 5 7 Location Back Hand Stitcher-Left Shoulder-Right Description Aching Aching Sore Radiating;Burning;Dull Duration (#) 5 1 Duration (Timeframe) Days Weeks Frequency Continuous Continuous Intervention Declined Medication Medication Medication;Heat;Cold Patient-Entered Data None today Review of Systems ROS RHEUMATOLOGYAll other reviewed and negative other than HPI. Past Medical History No past medical history on file. Past Surgical History PAST SURGICAL HISTORY Procedure Laterality Date CARPAL TUNNEL Bilateral HYSTERECTOMY HX LUMBAR SPINE FUSION COMBINED 02/2017 L4-S1 [facility] Dr. Arteaga PAST SURGICAL HISTORY OF Left foot surgery-hammertoe, bunionectomy PAST SURGICAL HISTORY OF trigger finger multiple fingers PAST SURGICAL HISTORY OF Bilateral Bone removed bilateral 5th toe PAST SURGICAL HISTORY OF Left Tendon release at the elbow ROTATOR CUFF REPAIR Bilateral Family History FAMILY HISTORY Problem Relation Age of Onset Alzheimer's Disease Mother Heart Attack Father Alcohol/Drug Father Diabetes Sister No Known Problems Brother Diabetes Sister No Known Problems Sister Social History Social History Tobacco Use Smoking status: Former Current packs/day: 0.50 Types: Cigarettes Smokeless tobacco: Current Tobacco comments: pt smoke half pack per day Vaping Use Vaping status: current everyday user Substances: Nicotine, Flavoring Substance Use Topics Alcohol use: Not Currently Comment: daily -none since 05/2022 Drug use: Never Current Medications Current Outpatient Medications Medication Sig alendronate (FOSAMAX) 70 mg tablet Take 70 mg by mouth one time a week. aspirin 81 mg cap Take 1 capsule by mouth once daily. REXULTI 1 mg tablet Take 1 mg by mouth daily at bedtime. cyanocobalamin 1,000 mcg/mL Inject 1,000 mcg intramuscularly once every month. desvenlafaxine ER (PRISTIQ) 100 mg 24 hr tablet Take 1 tablet by mouth once daily. furosemide (LASIX) 20 mg tablet Take 20 mg by mouth every morning. losartan (COZAAR) 100 mg tablet Take 1 tablet by mouth once daily. meloxicam (MOBIC) 7.5 mg tablet Take 7.5 mg by mouth two times a day as needed. methylphenidate (RITALIN) 10 mg tablet Take 10 mg by mouth. Take 1 tablet daily at 2:30 pm methylphenidate CD (METADATE CD) 60 mg biphasic capsule Take 60 mg by mouth every morning. omeprazole (PRILOSEC) 40 mg capsule Take 1 capsule by mouth once daily. MIEBO, PF, 100 % drop potassium chloride ER (KLOR-CON M10) 10 mEq tablet Take 1 tablet by mouth once daily. pregabalin (LYRICA) 100 mg capsule Take 100 mg by mouth three times a day. propranolol (INDERAL) 20 mg tablet Take 1 tablet by mouth every 12 hours. tiZANidine (ZANAFLEX) 4 mg tablet Take 4 mg by mouth every 8 hours as needed. amLODIPine (NORVASC) 10 mg tablet Take 10 mg by mouth once daily. budesonide-formoterol (SYMBICORT) 80-4.5 mcg/actuation inhaler Inhale 2 puffs as instructed two times a day. semaglutide (OZEMPIC SUBCUTANEOUS) Inject subcutaneously one time a week. predniSONE (DELTASONE) 5 mg tablet as needed. For flare up of arthritis acyclovir (ZOVIRAX) 400 mg tablet Take 400 mg by mouth. calcium carbonate/vitamin D3 (CALCIUM 600 + D ORAL) Take by mouth. linaCLOtide (LINZESS) 72 mcg capsule Take 1 capsule by mouth once daily. Administer on an empty stomach. Swallow whole; DO NOT crush or chew. leflunomide (ARAVA) 20 mg tablet Take 1 tablet by mouth once daily. albuterol (PROVENTIL) 2.5 mg /3 mL (0.083 %) nebulizer solution as needed for Wheezing/Shortness of Breath. cholecalciferol (VITAMIN D-3) 5,000 unit tab Take 5,000 Units by mouth once daily. amphetamine-dextroamphetamine XR (ADDERALL XR) 30 mg 24 hr capsule Take 30 mg by mouth once daily. (Patient not taking: Reported on 12/05/2024) pravastatin (PRAVACHOL) 40 mg tablet Take 40 mg by mouth once daily. (Patient not taking: Reported on 12/05/2024) B Complex Vitamins capsule Take 1 capsule by mouth once daily. NORVASC 10MG TABLET Take one(1) tablet daily. (Patient not taking: Reported on 12/05/2024) MULTIVITAMIN TABLET Take one(1) tablet daily. (Patient not taking: No sig reported) Labs Latest Ref Rng & Units 05/20/2008 01/27/2013 05/03/2019 09/26/2023 CBC WBC 3.70 - 11.00 k/uL 8.77 6.05 5.42 Hemoglobin 11.5 - 15.5 g/dL 14.3 13.9 13.8 Hemoglobin, [place] 12.0 - 16.0 g/dL 13.9 Hematocrit 36.0 - 46.0 % 42.9 44.8 43.2 Platelet Count 150 - 400 k/uL 232 251 257 Abs Neut (ANC) 1.45 - 7.50 k/uL 4.98 3.39 2.37 Abs Neut, Paul 2.0 - 8.1 k/uL 2.8 Abs Lymp, Paul 1.0 - 5.5 k/uL 2.1 Abs Lymph 1.00 - 4.00 k/uL 2.98 1.38 1.79 Latest Ref Rng & Units 07/21/2009 01/27/2013 05/03/2019 09/26/2023 CMP Sodium 136 - 144 mmol/L 142 139 140 Sodium, [place] 136 - 145 mmol/L 144 Potassium 3.7 - 5.1 mmol/L 4.0 3.9 3.8 Potassium, Paul 3.5 - 5.1 mmol/L 4.4 Chloride 97 - 105 mmol/L 105 108 104 Chloride, Paul 98 - 107 mmol/L 105 CO2 22 - 30 mmol/L 28 24 28 CO2, Paul 21.0 - 32.0 mmol/L 27.8 Glucose 74 - 99 mg/dL 90 97 102 Glucose, [place] 70 - 99 mg/dL 96 BUN 7 - 21 mg/dL 14 19 20 BUN, Paul 7 - 18 mg/dL 17 Creatinine 0.58 - 0.96 mg/dL 0.79 0.70 0.72 Creatinine, Paul 0.6 - 1.0 mg/dL 0.7 Calcium, Paul 8.5 - 10.1 mg/dL 9.0 Calcium 8.5 - 10.2 mg/dL 9.6 10.1 10.2 AST 13 - 35 U/L 32 15 26 AST, Paul 15 - 37 U/L 20 ALT 7 - 38 U/L 29 18 22 ALT, Paul 30 - 65 U/L 43 Alkaline Phosphatase 34 - 123 U/L 70 94 79 Latest Ref Rng & Units 01/27/2013 Uric Acid Uric Acid 2.5 - 6.2 mg/dL 6.7 Latest Ref Rng & Units 09/26/2023 ESR, WSR WSR 0 - 20 mm/hr 2 Latest Ref Rng & Units 09/26/2023 RF and CCP Rheumatoid Factor <16 IU/mL 34 Latest Ref Rng & Units 01/27/2013 Antibodies PT Sec 11.8 - 14.1 sec 12.1 PT INR 0.6 - 1.1 0.9 Latest Ref Rng & Units 01/27/2013 Urinalysis Protein, Urine Negative mg/dl Negative Imaging OUTSIDE STUDIES / DATA Labs done 25 at [facility]. 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 No suspicious change from prior exams no change overall lung assessment lung RADS category 1 continue annual X-ray right hand November 16, 2018 Impression: No erosive or significant proliferative arthropathy X-ray left hand November 16, 2018 Impression no erosive or proliferative arthropathy X-ray left hand Jan 06 2020 normal x-ray of the hand findings are similar to previous study X-ray right hand January 06, 2020 Mild degenerative changes in the radiocarpal articulation no additional erosive or degenerative changes are apparent findings to previous study X-ray right foot November 16, 2018 mild arthrosis of the first MTP joint no erosive features X-ray left foot November 14, 2018 mild degenerative arthrosis of the first MTP joint prior bunionectomies suspect old fifth metatarsal fracture DEXA January 16, 2019 Lowest T-score -2.1 in the lumbar spine -Left femur total T-score -1.4 -Left femoral neck T-score -1.9 -Right femur total T-score -1.3 -Right femoral neck T-score -1.9 Osteopenia-no FRAX was calculated DEXA February 17, 2022 Lowest T-score in the lumbar spine -2.5 Right femur total T-score -1.4 right femoral neck total T-score -1.7 Osteoporosis with decline in the lumbar spine Last XR Chest - Impression Only No resulted procedures found. Health Maintenance Current Immunizations Never Reviewed Name Date COVID-19 vaccine (inMarketBIONTOpax) 07/22/2023 COVID-19 vaccine, bivalent (Giggle-BIONTOpax) 09/22/2022 COVID-19 vaccine, monovalent (Giggle-BIONTOpax) 01/20/2022, 07/09/2021, 12/01/2020, 11/10/2020 Physical Exam GENERAL APPEARANCE: Well groomed. Alert and oriented x 3. In no distress. VITAL SIGNS: BP 146/95 Pulse 61 Ht 4' 10 (1.47m) Wt 126 lb 12.8 oz (57.5kg) SpO2 98% BMI 26.51 kg/(m^2). Physical Exam SKIN: No rash, thickening, nodules, discoloration. Stitches in place in left palm no erythema or draining in the surgical site EYES: PERRL, EOMI NECK: No mass or asymmetry. RESPIRATORY: Normal respiratory effort. Clear to auscultation and percussion. CARDIOVASCULAR: Heart RRR without gallop, murmur, or rub ABDOMEN: BS normal. No bruits, No tenderness NEUROLOGIC: Sensory exam normal. MUSCULOSKELETAL EXAMINATION: Soft tissue tender points: None Motor exam: Normal 5+/5+ muscle strength. Normal bulk and tone. Spine: Cervical spine: No visible abnormalities. Thoracic spine: No visible abnormalities. Lumbar spine: No visible abnormalities. + Tenderness to Right buttock and hip and lumbar paraspinal muscles Upper extremities: Shoulders: Full ROM in all lopez, no tenderness to palpation. No swelling or effusion. Elbows: Full ROM in flexion and extension. No swelling or effusion. No tenderness to palpation to the joint line Wrists: Full ROM in all lopez. No swelling or synovitis. No pain with pronation/supination. No tenderness to palpation Hands: Full ROM in flexion and extension. Full production counter strength. No swelling or synovitis along the MCPs, PIPs, and DIPs. There is mild tenderness in Left 2nd/3rd MCP region, however this is also the region of her recent left trigger finger release with stitches in place, likely related to post-op healing. No synovitis noted in MCPs, No deformities. Lower extremities: Hips: Tender in bilateral Greater trochanteric bursa regions. Knees: Full ROM in flexion and extension. No swelling or effusion. Tenderness noted in L joint margin. No tenderness to palpation of R knee. Ankles: Full ROM in all lopez. No swelling or effusion. + tenderness to palpation along the Left lateral malleolus and lateral joint line. No R ankle pain or tenderness. Feet: No effusion. No synovitis. + tenderness to palpation in MTP distribution with negative MTP squeeze. Impression Diagnoses: (M81.0) Age-related osteoporosis without current pathological fracture (primary encounter diagnosis) (M06.9) Rheumatoid arthritis, involving unspecified site, unspecified whether rheumatoid factor present (HCC) (M06.041, M06.042) Rheumatoid arthritis involving both hands with negative rheumatoid factor (HCC) (J44.9) Chronic obstructive pulmonary disease, unspecified COPD type (HCC) (M65.30) Acquired trigger finger (M54.31, M54.32) Bilateral sciatica (M48.061) Spinal stenosis of lumbar region, unspecified whether neurogenic claudication present (M43.26) Fusion of spine, lumbar region (I10) Essential (primary) hypertension # Rheumatoid arthritis, involving unspecified site, unspecified whether rheumatoid factor present (HCC) (M06.9) # Rheumatoid arthritis involving both hands with negative rheumatoid factor (HCC) (M06.041) Diagnosed in 2014 after multiple trigger finger surgeries. Recent labs (10/2024) from [facility] with Positive RF/CCP Currently well-managed with leflunomide. Previous treatment with methotrexate was discontinued, possibly due to liver function concerns. No current joint pain or stiffness in hands; occasional swelling noted in the past. Physical exam reveals tenderness in some knuckles, but no significant inflammation observed. - Continue leflunomide therapy. Prescribed a 90-day supply, sent to [facility]. - Monitor liver function and blood counts with labs every 3 months; next labs scheduled for January. - Educated patient on the importance of staying up to date with vaccinations due to immunosuppressive therapy. - Follow-up appointment scheduled for end of January or beginning of February to review lab results and assess disease status. # Acquired trigger finger (M65.30) Recent trigger finger release surgery performed a week ago at [place]. Patient reports some tenderness in the affected fingers. - Monitor for resolution of tenderness post-surgery. - Advised patient to report any persistent or worsening symptoms. # Bilateral sciatica (M54.31) Severe sciatica managed with recent lumbar epidural steroid injection. Patient reports significant discomfort prior to injection. - Monitor response to recent injection; advised that relief may take a few days to manifest. - Follow-up with pain management for further evaluation and treatment if symptoms persist. # Fusion of spine, lumbar region (M43.26) # Spinal stenosis of lumbar region, unspecified whether neurogenic claudication present (M48.061) History of lumbar spinal fusion with subsequent development of spinal stenosis. Patient reports ongoing issues at adjacent levels. - Continue current management with pain management team. - Monitor for any new or worsening symptoms. # Age-related osteoporosis without current pathological fracture (M81.0) Diagnosed in 2021 based on bone density test showing a T-score of -2.5 in the lumbar spine. Currently on Fosamax (alendronate) and calcium with vitamin D supplementation. - Continue Fosamax and calcium with vitamin D supplementation. - Ordered repeat bone density test to be performed at [facility] on same machine - Check vitamin D levels with next round of blood work in January. # Chronic obstructive pulmonary disease, unspecified COPD type (HCC) (J44.9) History of asthma as a child, now diagnosed with COPD. Scheduled for annual CT scan of the lungs in January. Will review results from external imaging. - Continue current management with PCP. - Ensure completion of scheduled CT scan in January. Plan Orders this visit: Office Visit on 12/05/24 DXA-AXIAL SKELETON BD DXA TRABECULAR BONE SCORE (TBS) VITAMIN D 25 HYDROXY COMPREHENSIVE METABOLIC PANEL SEDIMENTATION RATE, WESTERGREN C-REACTIVE PROTEIN COMPLETE BLOOD COUNT AND DIFFERENTIAL BLOOD TB SCREEN HEP REMOTE PANEL BL alendronate (FOSAMAX) 70 mg tablet aspirin 81 mg cap REXULTI 1 mg tablet cyanocobalamin 1,000 mcg/mL desvenlafaxine ER (PRISTIQ) 100 mg 24 hr tablet furosemide (LASIX) 20 mg tablet leflunomide (ARAVA) 20 mg tablet *Discontinued* losartan (COZAAR) 100 mg tablet meloxicam (MOBIC) 7.5 mg tablet methylphenidate (RITALIN) 10 mg tablet methylphenidate CD (METADATE CD) 60 mg biphasic capsule omeprazole (PRILOSEC) 40 mg capsule MIEBO, PF, 100 % drop potassium chloride ER (KLOR-CON M10) 10 mEq tablet pregabalin (LYRICA) 100 mg capsule propranolol (INDERAL) 20 mg tablet tiZANidine (ZANAFLEX) 4 mg tablet amLODIPine (NORVASC) 10 mg tablet budesonide-formoterol (SYMBICORT) 80-4.5 mcg/actuation inhaler semaglutide (OZEMPIC SUBCUTANEOUS) leflunomide (ARAVA) 20 mg tablet We discussed your rheumatoid arthritis: - Continue taking Leflunomide as prescribed. A 90-day supply has been sent to your pharmacy ([facility] on [address], [address]). - Schedule follow-up labs in January to monitor your liver function and blood counts, as this medication can affect these levels. - Your next appointment with me is scheduled for late January or early February. Please complete your labs prior to this visit. We discussed your osteoporosis: - Continue taking Alendronate (Fosamax) as prescribed to help prevent further bone loss and fractures. - Continue taking calcium and vitamin D supplements daily. - Schedule a bone density test at [facility] before your next visit to monitor your osteoporosis. We discussed your back pain and sciatica: - You recently received a lumbar injection for sciatica. It may take a few days for the medication to take full effect. - Continue following up with your pain management provider for your back and sciatica symptoms. We discussed your COPD/emphysema: - You have a scheduled CT scan of your lungs in January. Please ensure this is completed as planned. We discussed your vaccinations: - Ensure you are up to date on your flu, pneumonia, and shingles vaccines. These are important as rheumatoid arthritis and its treatments can lower your immune system. We discussed your general health: - Your vitamin D levels will be checked with your next round of blood work in January. - Continue taking Linzess as prescribed for constipation. - Continue propranolol for tremors as prescribed by your neurologist. Follow-Up Instructions: - Schedule your next appointment with me for late January or early February. - Complete your labs and bone density test before your next visit. - If you experience any new or worsening symptoms, please contact our office. Will have staff request records from [facility] as well. Return in about 8 weeks (around 01/31/2025) for Follow up, labs prior. I spent a total of 60 minutes on the date of the service which included preparing to see the patient, [id number] patient care, completing clinical documentation, obtaining and/or reviewing separately obtained history, performing a medically appropriate examination, counseling and educating the patient/family/caregiver, and ordering medications, tests, or procedures. The patient consented to the use of [employer] software for draft documentation of the visit consistent with [facility] s Notice of Privacy Practices. Winnie Hernandez PA-C Rheumatology Date: December 05, 2024 Time: 9:45 PM documented in this encounter [facility] 11-26-2024 Note [facility] 11-25-2022 History of Presen t illness Narrative Radiology Service Progress Note PATIENT NAME: Lele [...] RT Angela(R) November 25, 2022 4:22 PM documented in this encounter [facility] 11-25-2022 History of Presen t illness Narrative Subjective She came in with [...] history is provided by the patient. No environmental services lead was used. Pain (Shoulder Pain) Review of [...] HX LUMBAR SPINE FUSION COMBINED 02/2017 L4-S1 [facility] Dr. Arteaga PAST SURGICAL HISTORY OF foot [...] joint. 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 Josefa Serna APRN.CNP documented in this encounter [facility] 11-08-2022 History of Presen t illness Narrative Images from the original note [...] that she used a burn gel from [employer] and a special band aid for hurst. She denies fever or chills. The area [...] HX LUMBAR SPINE FUSION COMBINED 02/2017 L4-S1 [facility] Dr. Arteaga PAST SURGICAL HISTORY OF foot [...] Lizette Hayward APRN.CNP documented in this encounter [facility] 11-08-2022 Instructions Lizette Hayward APRN.CNP - 11/08/2022 [...] expected course of illness Lizette Hayward APRN.CNP Hurst You have been seen for a burn. There are three types of hurst: First-degree hurst. These are relatively minor hurst on the very top layer of skin. The skin is red and painful but there are no blisters. These hurst normally heal without scars. A bad sunburn is a type of first-degree burn. Second-degree hurst. These hurst are more serious. They involve deeper layers of the skin. The skin is red, painful, with blisters. Second-degree hurst may cause scars. Third-degree hurst. These hurst involve deep layers of the skin. They always cause scars. These hurst may or may not be painful. Take [...] / or swelling. documented in this encounter [facility] 09-23-2022 Hospital Discharg e instructions Patient Education 09/23/2022 17:56:20 R.I.C.E. RICE [...] worsens and is not improved with elevation. [id number] [employer]. [address] [place] [address]. All rights reserved. This information is not intended as a substitute for professional medical care. Always follow your healthcare professional's instructions. Follow Up Care 09/23/2022 17:27:06 With:Your pain management physician Address: When:2-4 days With:SAPNA ASHLEY MD Address: [facility]/[address] [place] [address]- When:2-4 days [facility] 09-23-2022 Note ORIGINAL EXAMINATION: THREE XRAY VIEWS [...] Sign Date: 09/23/2022 6:50:07 PM Ordering Provider: [facility] 09-23-2022 Note Discharge Instructions Thank you for allowing [facility] to assist you with your healthcare needs. [...] MD When Within 2-4 days Where: [facility]/[address] [place] [address]- Allergies benzonatate penicillin Medications Please ask your [...] worsens and is not improved with elevation. [id number] [employer]. [address] [place] [address]. All rights reserved. This information is not intended as a substitute for professional medical care. Always follow your healthcare professional's instructions. Additional Information VACCINATE! IT SAVES LIVES! Members of the community who have not yet received the COVID-19 vaccine and would like to receive it can visit one of [facility] vaccine clinics. There are many vaccine clinic locations within the [facility]. For locations and available times, please visit [email or web address]. It is important to note that some COVID mobile vaccine clinics are held outdoors and may be canceled in rainy or stormy conditions. To learn more about pediatric vaccinations (ages 5-11), we invite you to visit the [facility] webpage. [email or web address] To learn more about the COVID-19 vaccine, we invite you to visit the [facility] website for a list of frequently asked questions. [email or web address] [facility] Patient Portal Access Instructions: Stay connected with your healthcare team and access your personal medical information anytime with the [facility] Patient Portal. If you would like a full copy of your medical records please contact the [facility] Medical Records Department Monday through Monday between 8a.m. and 4:30p.m. Please follow the directions below to access the portal: 1.Access the email account you provided upon registration to the [facility].2.Look for an invitation email from [facility].3.Open the email and access the invitation link: Accept Invitation to [facility]4.Fill in the required lopez to create your account. Sign into www.Social Media [employer] with your username and password that you [...] you will allow to register on the [facility] Patient Portal for access to your information. You can also access the [facility] Patient Portal on the [employer]. Simply click on Health Records under Health Data and then click on the [employer] logo. HOW TO SAFELY DISPOSE OF PRESCRIPTION [...] Call your local pharmacy or go to [email or web address] to find one close to you.3.Make use of household items: Use cat litter or old coffee grounds to dispose medications if other options are not available. Mix your drugs with these household products, seal them in an airtight container and throw it into the garbage. Call [facility]: [phone] to be sure your drugs can be [...] been reviewed and explained to me and I,LELE PANG S understand my current condition and have read and understand these discharge instructions. I have received a written copy of the plan/instructions. If I have questions, I am aware that I should contact my doctor. Patient/Ip Architect Signature: Date/Time: Relationship to Patient: Witness Name/Signature: Date/Time: [facility] 09-23-2022 Note ORIGINAL EXAMINATION: THREE XRAY VIEWS [...] 09/23/2022 6:50:07 PM Ordering Provider: ERICK BELL [facility] Evaluation + Plan note No data available for this section [facility] Evaluation note Diagnosis Onset Date Abnormal EKG acute CARBAJAL (dyspnea on exertion) ac [place] Essential hypertension chron ic Hyperlipemia chronic Insomnia acute Essential hypertension chron ic GERD (gastroesophageal reflux disease) chronic Nicotine dependence, cigaret dago, uncomplicated acute Shortness of breath acute [facility] Work Phone: Evaluation note* Diagnosis Onset Date Resolution Status Abnormal EKG acute CARBAJAL (dyspnea on exertion) ac [place] Essential hypertension chron ic Hyperlipemia chronic Essential hypertension chron ic GERD (gastroesophageal reflux disease) chronic Insomnia chronic Nicotine dependence, cigarettes, uncomplicated acute Shortness of breath chronic Essential hypertension chron ic Insomnia chronic Shortness of breath chronic Tobacco use disorder, continuous chronic Nicotine dependence, cigarettes, uncomplicated acute Tremor chronic [facility] Work Phone: Evaluation note* Diagnosis Onset Date Resolution Status Nicotine dependence, cigarettes, uncomplicated acute Shortness of breath chronic Essential hypertension chron ic Insomnia chronic Shortness of breath chronic Tobacco use disorder, continuous chronic Nicotine dependence, cigarettes, uncomplicated acute Tremor chronic Eosinophilia acute [facility] Work Phone: Evaluation note* Diagnosis Onset Date Resolution Status Nicotine dependence, cigarettes, uncomplicated acute Shortness of breath chronic Essential hypertension chron ic Insomnia chronic Shortness of breath chronic Tobacco use disorder, continuous chronic Nicotine dependence, cigarettes, uncomplicated acute Tremor chronic Eosinophilia acute Post-menopausal acute Vitamin D deficiency acute Essential hypertension chron ic Hyperlipemia chronic Overweight chronic [facility] Work Phone: Evaluation note* Diagnosis Onset Date Resolution Status Nicotine dependence, cigarettes, uncomplicated acute Shortness of breath chronic Essential hypertension chron ic Insomnia chronic Shortness of breath chronic Tobacco use disorder, continuous chronic Nicotine dependence, cigarettes, uncomplicated acute Tremor chronic Eosinophilia acute Post-menopausal acute Vitamin D deficiency acute Essential hypertension chron ic Hyperlipemia chronic Overweight chronic Asthma acute Smoking greater than 40 pack years acute [facility] Work Phone: Evaluation note* Diagnosis Onset Date Resolution Status Essential hypertension chron ic Insomnia chronic Shortness of breath chronic Tobacco use disorder, continuous chronic Nicotine dependence, cigarettes, uncomplicated acute Tremor chronic Eosinophilia acute Post-menopausal acute Vitamin D deficiency acute Essential hypertension chron ic Hyperlipemia chronic Overweight chronic Asthma acute Smoking greater than 40 pack years acute [facility] Work Phone: Evaluation note* Diagnosis Onset Date Resolution Status Osteopenia with high risk of fracture acute ADD (attention deficit disorder) chronic Essential hypertension chron ic [facility] Work Phone: Evaluation note* Diagnosis Onset Date Resolution Status ADD (attention deficit disorder) chronic Essential hypertension chron ic Osteopenia with high risk of fracture chronic AA (alcohol abuse) acute ADD (attention deficit disorder) chronic Essential hypertension chron ic Heat intolerance chronic Osteopenia with high risk of fracture chronic Tobacco use disorder, continuous chronic [facility] Work Phone: Evaluation note* Diagnosis Burn, wrist, second degree, left, initial encounter- Primary documented in this encounter [facility] note* Diagnosis Pain- Primary Generalized pain documented in this encounter [facility] note* Diagnosis Pre-operative examination- Primary Preoperative examination, unspecified Lumbosacral spondylosis without myelopathy Spinal stenosis, lumbar region with neurogenic claudication Essential hypertension Unspecified essential hypertension Mixed hyperlipidemia COPD with chronic bronchitis (HCC) Obstructive chronic bronchitis without exacerbation Uncomplicated asthma, unspecified asthma severity, unspecified whether persistent Rheumatoid arthritis, involving unspecified site, unspecified rheumatoid factor presence Neuropathy Mononeuritis of unspecified site Anxiety and depression Dysthymic disorder Attention deficit hyperactivity disorder, predominantly inattentive type History of ETOH abuse Nondependent alcohol abuse, in remission Former smoker Personal history of tobacco use, presenting hazards to health Pain Generalized pain [facility] Diagnosis Pre-operative examination- Primary Preoperative examination, unspecified Lumbosacral spondylosis without myelopathy Spinal stenosis, lumbar region with neurogenic claudication Essential hypertension Unspecified essential hypertension Mixed hyperlipidemia COPD with chronic bronchitis (HCC) Obstructive chronic bronchitis without exacerbation Uncomplicated asthma, unspecified asthma severity, unspecified whether persistent (HCC) Rheumatoid arthritis, involving unspecified site, unspecified rheumatoid factor presence Neuropathy Mononeuritis of unspecified site Anxiety and depression Dysthymic disorder Attention deficit hyperactivity disorder, predominantly inattentive type History of ETOH abuse Nondependent alcohol abuse, in remission Former smoker Personal history of tobacco use, presenting hazards to health Rheumatoid arthritis, involving unspecified site, unspecified whether rheumatoid factor present (HCC)- Primary Rheumatoid arthritis involving both hands with negative rheumatoid factor (HCC) Acquired trigger finger Trigger finger (acquired) Bilateral sciatica Sciatica Fusion of spine, lumbar region Spinal stenosis of lumbar region, unspecified whether neurogenic claudication present Age-related osteoporosis without current pathological fracture Senile osteoporosis Chronic obstructive pulmonary disease, unspecified COPD type (HCC) [facility] Diagnosis Pre-operative examination- Primary Preoperative examination, unspecified Lumbosacral spondylosis without myelopathy Spinal stenosis, lumbar region with neurogenic claudication Essential hypertension Unspecified essential hypertension Mixed hyperlipidemia COPD with chronic bronchitis (HCC) Obstructive chronic bronchitis without exacerbation Uncomplicated asthma, unspecified asthma severity, unspecified whether persistent (HCC) Rheumatoid arthritis, involving unspecified site, unspecified rheumatoid factor presence Neuropathy Mononeuritis of unspecified site Anxiety and depression Dysthymic disorder Attention deficit hyperactivity disorder, predominantly inattentive type History of ETOH abuse Nondependent alcohol abuse, in remission Former smoker Personal history of tobacco use, presenting hazards to health Rheumatoid arthritis, involving unspecified site, unspecified whether rheumatoid factor present (HCC)- Primary Age-related osteoporosis without current pathological fracture Senile osteoporosis Fusion of spine, lumbar region Spinal stenosis of lumbar region, unspecified whether neurogenic claudication present documented in this encounter [facility] for referral (narrative)* Diagnostic Procedure Only (Urgent) - Closed Specialty Diagnoses / Procedures Referred By Contac t Referred To Contact XR IMAGING Diagnoses Pain Procedures XR SHOULDER GENERAL 3V OR MORE AP/TRUE AP/OTHER RIGHT RADEX SHOULDER COMPLETE MINIMUM 2 VIEWS Josefa Serna APRN.SOFTWARE DEVELOPMENT PROJECT MANAGER [address] [place] [address] [place] [address] Referral ID Status Reason Start Date Expiration Date V isits Requested Visits Authorized [id number] Closed Auto-Generate d Referral 11/25/2022 12/25/2023 1 1 [facility] for visit Narrative* Diagnostic Procedure Only (Urgent) - Closed Specialty Diagnoses / Procedures Referred By Contac t Referred To Contact XR IMAGING Diagnoses Pain Procedures XR SHOULDER GENERAL 3V OR MORE AP/TRUE AP/OTHER RIGHT RADEX SHOULDER COMPLETE MINIMUM 2 VIEWS Josefa Serna APRN.CNP [address] [place] [address] [place] [address] Referral ID Status Reason Start Date Expiration Date V isits Requested Visits Authorized [id number] Closed Auto-Generate d Referral 11/25/2022 12/25/2023 1 1 [facility] Summary Purpose Family History Relationship Condition Age at Onset Recorded Date/T leandro Not Specified Alcoholism Unknown Arthritis Unknown Cardiac disease Unknown Hyperlipidemia Unknown Hypertension Unknown Asthma Unknown brother Coronary artery disease 69 Advance Directives Advance Directive Response Recorded Date/ Time Advance Directives No April 08 10:35am Living Will Yes March 07, 2021 1 0:44pm Power of Fish Housekeeper No March 07, 2021 10:44pm Advance Directive Response Recorded Date/ Time Advance Directives No April 08 9:35am Living Will Yes March 07, 2021 9 :44pm Power of Fish Housekeeper No March 07, 2021 9:44pm Documents on File Type Date Recorded Patient Ip Architect Expl anation Advance Directive(s) 05/08/2019 10:56 AM Documents on File Type Date Recorded Patient Ip Architect Expl anation Advance Directive(s) 05/08/2019 10:56 AM Chief Complaint and Reason for Visit Chief Complaint AMB BP program/HTN c heck F/U HEARTBURN S/O Shortness of breath SOB Shortness of breath SOB Shortness of breath PRESRCIPTION REFILL Reason for Visit Abnormal EKG CARBAJAL (dyspnea on exertion) Essential hypertension Hyperlipemia Insomnia Essential hypertension GERD (gastroesophageal reflux disease) Nicotine dependence, cigarettes, uncomplicated Shortness of breath Chief Complaint AMB BP program/HTN c heck F/U HEARTBURN S/O Shortness of breath SOB Shortness of breath SOB Shortness of breath PRESRCIPTION REFILL head shaking Reason for Visit Abnormal EKG CARBAJAL (dyspnea on exertion) Essential hypertension Hyperlipemia Essential hypertension GERD (gastroesophageal reflux disease) Insomnia Nicotine dependence, cigarettes, uncomplicated Shortness of breath Essential hypertension Insomnia Shortness of breath Tobacco use disorder, continuous Nicotine dependence, cigarettes, uncomplicated Tremor Chief Complaint S/O Shortness of breath SOB Shortness of breath SOB Shortness of breath PRESRCIPTION REFILL head shaking lab TOBACCO DEPENDENCE 1YR LABS PRIOR Reason for Visit Nicotine dependence, cigarettes, uncomplicated Shortness of breath Essential hypertension Insomnia Shortness of breath Tobacco use disorder, continuous Nicotine dependence, cigarettes, uncomplicated Tremor Eosinophilia Chief Complaint Shortness of breath SOB Shortness of breath SOB Shortness of breath PRESRCIPTION REFILL head shaking lab TOBACCO DEPENDENCE 1YR LABS PRIOR 1 M FU S/O Reason for Visit Nicotine dependence, cigarettes, uncomplicated Shortness of breath Essential hypertension Insomnia Shortness of breath Tobacco use disorder, continuous Nicotine dependence, cigarettes, uncomplicated Tremor Eosinophilia Post-menopausal Vitamin D deficiency Essential hypertension Hyperlipemia Overweight Chief Complaint Shortness of breath SOB Shortness of breath SOB Shortness of breath PRESRCIPTION REFILL head shaking lab TOBACCO DEPENDENCE 1YR LABS PRIOR 1 M FU S/O 1 M FU POST ANKIT Reason for Visit Nicotine dependence, cigarettes, uncomplicated Shortness of breath Essential hypertension Insomnia Shortness of breath Tobacco use disorder, continuous Nicotine dependence, cigarettes, uncomplicated Tremor Eosinophilia Post-menopausal Vitamin D deficiency Essential hypertension Hyperlipemia Overweight Asthma Smoking greater than 40 pack years Chief Complaint SOB Shortness of breath SOB Shortness of breath PRESRCIPTION REFILL head shaking lab TOBACCO DEPENDENCE 1YR LABS PRIOR 1 M FU S/O 1 M FU POST ANKIT Reason for Visit Essential hypertensi on Insomnia Shortness of breath Tobacco use disorder, continuous Nicotine dependence, cigarettes, uncomplicated Tremor Eosinophilia Post-menopausal Vitamin D deficiency Essential hypertension Hyperlipemia Overweight Asthma Smoking greater than 40 pack years Chief Complaint BONE DENSITY FU S/O- EVERY 3 MOS- Reason for Visit Osteopenia with high risk of fracture ADD (attention deficit disorder) Essential hypertension Chief Complaint BONE DENSITY FU S/O- EVERY 3 MOS- 3 M FU Reason for Visit ADD (attention defic it disorder) Essential hypertension Osteopenia with high risk of fracture AA (alcohol abuse) ADD (attention deficit disorder) Essential hypertension Heat intolerance Osteopenia with high risk of fracture Tobacco use disorder, continuous Reason for Referral Specialty Diagnoses / Procedures Referred By Zahra t Referred To Contact Orthopedics Diagnoses Pain Procedures CONSULT TO ORTHOPAEDICS OFFICE/OUTPATIENT COUNTS INCLUDE [facility]EDS AT THE [facility] MDM 60-74 MINUTES Josefa Serna, SANGITA.SOFTWARE DEVELOPMENT PROJECT MANAGER [address] [place] [address] Referral ID Status Reason Start Date Expiration Date Visits Requested Visits Authorized [id number] Pending Review PCP Requested Referral 11/25/2022 11/25/2023 1 1 Specialty Diagnoses / Procedures Referred By Zahra t Referred To Contact XR IMAGING Diagnoses Pain Procedures XR SHOULDER GENERAL 3V OR MORE AP/TRUE AP/OTHER RIGHT RADEX SHOULDER COMPLETE MINIMUM 2 VIEWS Josefa Serna APRN.SOFTWARE DEVELOPMENT PROJECT MANAGER [address] [place] [address] Xr Imaging Referral ID Status Reason Start Date Expiration Date V isits Requested Visits Authorized [id number] Closed Auto-Generate d Referral 11/25/2022 12/25/2023 1 1 Additional Source Comments INFORMATION SOURCE (unrecogn ized section and content) DATE CREATED AUTHOR 05/22/2019 [facility] DATE CREATED AUTHOR AUTHOR'S ORGANIZ ATION 10/01/2022 [facility] ([place]) DATE CREATED AUTHOR AUTHOR'S ORGANIZ ATION 03/09/2025 [facility] DATE CREATED AUTHOR AUTHOR'S ORGANIZ ATION 04/12/2025 [facility] Goals (unrecognized section and content) Goals may be documented in a n alternate sectionGoals may be documented in an alternate sectionGoals may be documented in an alternate sectionGoals may be documented in an alternate sectionGoals may be documented in an alternate sectionGoals may be documented in an alternate sectionGoals may be documented in an alternate sectionGoals may be documented in an alternate section No data available for this section Care Team (unrecognized sect ion and content) Care Team Personnel Name: SAPNA ASHLEY MD Member Role: Primary Care Physician Address: Address: [facility] [place] [address]- Name: ERICK BELL DO Position: AH Resident Member Role: Resident Address: Address: [address] [place] [address] [place] [address]- Name: JOSE RAMON Paniagua Position: AO RN [...] or prosecute any alcohol or drug abuse patient.[facility] the event this information is protected by the Federal Confidentiality of Alcohol and Drug Abuse Patient Records regulations: The Federal rules restrict any use of the information to criminally investigate or prosecute any alcohol or drug abuse patient.[facility] the event this information is protected by the Federal Confidentiality of Alcohol and Drug Abuse Patient Records regulations: The Federal rules restrict any use of the information to criminally investigate or prosecute any alcohol or drug abuse patient.[facility] the event this information is protected by the Federal Confidentiality of Alcohol and Drug Abuse Patient Records regulations: The Federal rules restrict any use of the information to criminally investigate or prosecute any alcohol or drug abuse patient.[facility] the event this information is protected by the Federal Confidentiality of Alcohol and Drug Abuse Patient Records regulations: The Federal rules restrict any use of the information to criminally investigate or prosecute any alcohol or drug abuse patient.[facility] Center[facility] the event this information is protected by the Federal Confidentiality of Alcohol and Drug Abuse Patient Records regulations: The Federal rules restrict any use of the information to criminally investigate or prosecute any alcohol or drug abuse patient.[facility] Center[facility] the event this information is protected by the Federal Confidentiality of Alcohol and Drug Abuse Patient Records regulations: The Federal rules restrict any use of the information to criminally investigate or prosecute any alcohol or drug abuse patient.[facility] Center[facility] the event this information is protected by the Federal Confidentiality of Alcohol and Drug Abuse Patient Records regulations: The Federal rules restrict any use of the information to criminally investigate or prosecute any alcohol or drug abuse patient.[facility] Center[facility] the event this information is protected by the Federal Confidentiality of Alcohol and Drug Abuse Patient Records regulations: The Federal rules restrict any use of the information to criminally investigate or prosecute any alcohol or drug abuse patient.[facility] Reason for Visit (unrecogniz ed section and content) Reason Comments Burn left wrist x 5 days, iron Reason Comments Pain (Shoulder Pain) R shoulder pain x1 week Reason Comments New Patient Specialty Diagnoses / Procedures Referred By Zahra guajardo Referred To Contact Rheumatology / RHEUMATOLOGY Diagnoses Rheumatoid arthritis (HCC) rheumaoid arthritis referred by Daron Hernandez Procedures OFFICE/OUTPATIENT [facility] 60 MINUTES [facility] Daron Greenfield, SOFTWARE DEVELOPMENT PROJECT MANAGER [address] [place] [address] Phone: tel: fax: Winnie Hernandez PA-C [address] [place] [address] Phone: tel: fax: Referral ID Status Reason Start Date Expiration Date Visits Re quested Visits Authorized [id number] Closed 11/27/2024 09/03/2025 1 1 Reason Comments Request Outside Medical Records Reason Comments Follow Up Specialty Diagnoses / Procedures Referred By Zahra guajardo Referred To Contact Rheumatology / RHEUMATOLOGY Diagnoses Rheumatoid arthritis (HCC) rheumaoid arthritis referred by Daron Hernandez Procedures OFFICE/OUTPATIENT [facility] 60 MINUTES [facility] Daron Greenfield, SOFTWARE DEVELOPMENT PROJECT MANAGER [address] [place] [address] Phone: tel: fax: Winnie Hernandez PA-C [address] [place] [address] Phone: tel: fax: Care Teams (unrecognized sec tion and content) Client Delivery Manager Relationship Specialty Start Date End Date Yady Vera MD [address] [place], [place] [address] PCP - General Internal Medicine 11/08/22 Client Delivery Manager Relationship Specialty Start Date End Date Yady Vera MD [address] [place] [address] PCP - General Internal Medicine 11/08/22 Client Delivery Manager Relationship Specialty Start Date End Date Yady Vera MD [address] [place] [address] PCP - General Internal Medicine 11/08/22 Client Delivery Manager Relationship Specialty Start Date End Date Yady Vera MD [address] [place] [address] PCP - General Internal Medicine 11/08/22 Client Delivery Manager Relationship Specialty Start Date End Date Yady Vera MD [address] [place] [place] [address] PCP - General Internal Medicine 11/08/22 Client Delivery Manager Relationship Specialty Start Date End Date Yady Vera MD [address] [place] [address] PCP - General Internal Medicine 11/08/22 Client Delivery Manager Relationship Specialty Start Date End Date Se Roberts CNP [address] [place] [address] PCP - General Family Medicine 12/29/24 Client Delivery Manager Relationship Specialty Start Date End Date Se Roberts CNP [address] [place] [address] PCP - General Family Medicine 12/29/24 Client Delivery Manager Relationship Specialty Start Date End Date Se Roberts CNP [address] [place] [address] PCP - General Family Medicine 12/29/24 FOR RECORDS PERTAINING TO PATIENTS WHO ARE [...] BE BASED ON THE PRIMARY CLINICAL RECORDS. [facility]. provides no warranty or guarantee of the accuracy or completeness of information in this document.
--- NOTE | 2025-04-15 17:28 | STRESSREP ---
Stress Test Report Pharmacologic myocardial perfusion stress test. 69-year-old lady for preoperative evaluation Resting EKG demonstrates sinus bradycardia with a rate of 56 bpm. T wave inversions are noted in in leads II, III and aVF V4 through V6. Resting blood pressure is 132/74 mmHg. 0.4 mg of regadenoson was infused per usual protocol followed by rapid intravenous saline flush injection. Monitoring was performed. The maximum heart rate was 86 bpm which was 57% of max impacted heart rate the maximum workload was 1 metabolic equivalent. At rest there were no ST or T wave changes noted to suggest ischemia and at peak infusion nonspecific ST changes were noted which did not meet the criteria for ischemia. No clinical angina is noted. The final blood pressure was 118/80 mmHg. Myocardial perfusion protocol. 12 mCi of technetium 99m sestamibi was injected at rest. 0.4 mg of regadenoson was infused per usual protocol. At peak infusion 36 mCi of technetium 99m sestamibi was injected stress images were obtained stress and rest images were reconstructed and compared in the short axis vertical long and horizontal long axis. Gated images were also obtained. Perfusion SPECT analysis: Review of the stress images demonstrate normal uptake of tracer noted in all areas of the myocardium. The resting images similar demonstrated normal uptake of tracer noted in all areas of the myocardium. No areas of reversibility are noted to suggest ischemia and no previous infarct is noted. Gated SPECT analysis: The gated ejection fraction is 85%. Conclusion: Normal pharmacologic myocardial perfusion stress test. Preserved ejection fraction.
== END | disposition home or self-care (01) ==
LOC: CVS 06:56
PROVIDERS: PCP Nurse Practitioner Family; Referring Provider Internal Medicine Cardiovascular Disease; Visit Provider Internal Medicine Cardiovascular Disease
DX: R06.02 Shortness of breath (principal); I10 Essential (primary) hypertension; E78.5 Hyperlipidemia, unspecified
CPT/HCPCS: 78452; 93017; A9500; A4216; J2785

== ENCOUNTER → 2025-04-25 | Outpatient (CLI) | payer MEDICARE, MEDICAID, SELFPAY ==
[2025-04-25 18:31] LABS: Creatinine, Urine (random) 83.70 mg/dL (28.00-217.00); Protein, Urine (Random) 12.6 mg/dL (0.0-12.0); Protein:Creat Ratio 151 mg/g CRE (0-200)
[2025-04-25 18:41] LABS: Albumin, Serum 4.2 g/dL (3.4-4.8); Anion Gap 15 (5-15); BUN 19 mg/dL (4-19); BUN/Creat Ratio 21.7 RATIO (10-20); Calcium,Total 9.8 mg/dL (7.6-11.0); Carbon Dioxide 22.0 mmol/L (21.0-32.0); Chloride 104 mmol/L (98-108); Glucose 104 mg/dL (70-99); Potassium 3.6 mmol/L (3.3-5.1)
== END | disposition home or self-care (01) ==
LOC: MTLAB 15:26
PROVIDERS: PCP Nurse Practitioner Family; Referring Provider Internal Medicine Nephrology; Visit Provider Internal Medicine Nephrology
DX: I1A.0 Resistant hypertension (principal)
CPT/HCPCS: 36415; 80069; 82088; 82570; 84156; 84244

== ENCOUNTER → 2025-06-12 | Outpatient (CLI) | payer MEDICARE, MEDICAID, SELFPAY ==
[2025-06-12 18:49] LABS: Hematocrit 41.2 % (37-47); Hemoglobin 12.7 g/dL (12.0-15.0); Immature Granulocytes Count 0.010 X10^3/uL (0.0-0.0); Mean Corp Hgb Conc 30.8 g/dL (32-36); Mean Corpuscular Volume 90.7 fL (81-99); Mean Platelet Vol. 11.6 fl (6.2-12.0); NRBC Flagged by Analyzer 0 % (0-5); Platelet Count 233 K/mm3 (150-450); RBC Distribution Width CV 14.0 % (11.6-14.6); RBC Distribution Width SD 46.2 fl (35.1-43.9); Red Blood Count 4.54 M/mm3 (4.2-5.4); White Blood Count 5.8 K/mm3 (4.4-11.0)
[2025-06-12 19:20] LABS: Anion Gap 9 (5-15); BUN 23 mg/dL (4-19); BUN/Creat Ratio 22.7 RATIO (10-20); Calcium,Total 9.7 mg/dL (7.6-11.0); Carbon Dioxide 28.4 mmol/L (21.0-32.0); Chloride 105 mmol/L (98-108); Glucose 102 mg/dL (70-99); Potassium 4.1 mmol/L (3.3-5.1)
[2025-06-12 19:24] LABS: Magnesium 2.1 mg/dL (1.5-2.2)
== END | disposition home or self-care (01) ==
LOC: MTLAB 14:33
PROVIDERS: Anesthesiology; PCP Nurse Practitioner Family; Referring Provider Orthopaedic Surgery Orthopaedic Surgery of the Spine; Visit Provider Orthopaedic Surgery Orthopaedic Surgery of the Spine
DX: Z01.818 Encounter for other preprocedural examination (principal)
CPT/HCPCS: 36415; 80048; 83036; 83735; 85025; 86850; 86900; 86901; 87081

== ENCOUNTER 2025-06-23 12:14 | Inpatient (IN) | payer MEDICARE, MEDICAID, SELFPAY ==
--- NOTE | 2025-06-09 16:26 | PAT.ANESEVAL ---
Pre-Assessment Diagnosis/Proposed Procedure Planned Operative Procedure(s): ERAS, 360 Lumbar Fusion L3-4 anterior and revision posterior L3-4 and L4-5 fusion, removal and reinsertion of hardware Anesthesia History Anesthesia History - teletype clerk: Anesthesia History - teletype clerk Hx Hospitalization No 06/09/25 15:59 Any Problems With Anesthesia No 06/09/25 15:59 Cholinesterase deficiency No 06/09/25 15:59 You/Your Family Experience No 06/09/25 15:59 fever (hyperthermia) with Relationship Recent Exposure to Contagious No 11/26/24 06:27 Disease Does patient have nerve Yes: INSTRUCTED TO TURN OF 06/09/25 15:59 stimulator DOS Patient instructed to have device shut off --Does patient have Pacemaker or ICD? When Was Last Pacemaker Check QUESTION #4 FULL TEXT: You/Your Family Experience fever (hyperthermia) with Anesthesia Last Oral Intake Last Oral intake: Last Oral Intake NPO since Meds taken in AM with sips of water? Meds patient instructed to take am of surgery PONV PONV - teletype clerk: PONV - teletype clerk Female Yes 06/09/25 15:59 HX of Motion Sickness Yes 06/09/25 15:59 HX of N/V After Surgery No 06/09/25 15:59 Non-Smoker Yes 06/09/25 15:59 Duration of Surgery greater No 06/09/25 15:59 than 60 minutes Number of Risk Factors 3 06/09/25 15:59 PONV Score Moderate Risk 06/09/25 15:59 Height & Weight Height & Weight: Anesthesia: Height & Weight Height 4 ft 10 in 03/11/25 09:45 Respiratory Assessment Respiratory Assessment - teletype clerk: Respiratory Tract Infection Hx - teletype clerk Hx Respiratory Tract Infection No 06/09/25 15:59 STOP Sleep Apnea STOP Sleep Apnea - teletype clerk: STOP Sleep Apnea - teletype clerk Hx Hypertension Yes: CONTROLLED WITH MED 06/09/25 15:59 Hx Sleep Apnea No 06/09/25 15:59 CPAP No 06/09/25 15:59 BIPAP Do you snore loudly (louder No 06/09/25 15:59 than talking or can be heard Do you often feel tired/ No 06/09/25 15:59 fatigued/ sleepy during daytime? Has anyone observed you stop No 06/09/25 15:59 breathing during sleep? STOP Results Negative 06/09/25 15:59 QUESTION #5 FULL TEXT : Do you snore loudly (louder than talking or can be heard through closed doors)? 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 Specify any problems Hx of Preganancy in last 3 No 06/09/25 15:59 Months Nurse Filling Out Transfusion VCHRISTIN 06/09/25 15:59 & Questions: Date: 06/09/25 06/09/25 15:59 Time: 16:01 06/09/25 15:59 Patient unable to answer at this time (ie. confused, unrespo /Reproduction History /Reproductive History - teletype clerk: /Reproductive Hx- teletype clerk Hx Now Gestational Age (in weeks): EDC: Hx Hx Para Hx Section SAB PFSH Medical History (Updated 06/09/25 @ 15:59 by Bobbi Sotomayor) History of trigger finger History of Holter monitoring Impingement of right shoulder Primary osteoarthritis, right shoulder Right shoulder pain Vapes nicotine containing substance Osteoarthritis Lumbar radiculopathy Impacted cerumen of both ears Wears glasses High cholesterol Former smoker Hypertension History of echocardiogram History of stress test Cardiology follow-up encounter Vitamin deficiency Chronic constipation Borderline type 2 diabetes mellitus Alcohol use disorder in remission Depression, unspecified ADHD Heat intolerance Osteopenia with high risk of fracture Smoking greater than 40 pack years Tremor Nicotine dependence, cigarettes, uncomplicated Insomnia CARBAJAL (dyspnea on exertion) Shortness of breath Abnormal EKG AA (alcohol abuse) COVID-19 vaccine series completed Essential hypertension Acute low back pain ADD (attention deficit disorder) Back pain Jaw swelling Low back pain due to bilateral sciatica Tobacco use disorder, continuous Encounter for screening for malignant neoplasm of lung in current smoker with 30 pack year history or greater Post-menopausal Eosinophilia Abnormal bruising Hay fever Fatigue Spinal cord stimulator status Overweight GERD (gastroesophageal reflux disease) Rheumatoid arthritis Primary osteoarthritis of left hip Vitamin D deficiency Anxiety and depression Rheumatoid arthritis Neuropathy Hyperlipemia Chronic bronchitis Cataracts, bilateral Asthma History of alcohol abuse Seasonal allergies Unilateral primary osteoarthritis, right hip Spondylosis of 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 myelopathy or radiculopathy Spinal stenosis of lumbosacral region Radiculopathy of lumbosacral region Degeneration, intervertebral disc, lumbosacral Home Medications ?Medication ?Instructions ?Recorded ?Last Taken ?Type blood pressure monitor (Blood #1 ea 09/30/20 Unknown Rx Pressure Kit) omeprazole 40 mg capsule,delayed 40 mg PO DAILY GERD #90 caps 12/15/22 02/28/23 09:30 Rx release albuterol sulfate 90 mcg/actuation 2 puff inhalation Q6H PRN 02/23/23 Unknown Rx aerosol inhaler (ProAir HFA) shortness of breath or wheezing #8.5 grams Handicap Placard #1 ea 07/26/23 Unknown Rx amlodipine 10 mg tablet 10 mg PO DAILY BP #90 tabs 09/13/23 Unknown Rx 3 mL syringe with 1 inch 25-gauge #6 ea 10/24/24 Unknown Rx needle acyclovir 400 mg tablet 400 mg PO MOWEFR HPV 11/12/24 Unknown History alendronate 70 mg tablet 70 mg PO QWEEK BONE HEALTH 11/12/24 Unknown History methylphenidate HCl 30 mg biphasic 30 mg PO BID ADHD 11/12/24 Unknown History 50-50 capsule,extended release Symbicort 160 mcg-4.5 2 inh inhalation BID ASTHMA #10.2 12/18/24 Unknown Rx mcg/actuation HFA aerosol inhaler grams (budesonide-formoterol) pregabalin 150 mg capsule 150 mg PO TID RA 12/19/24 Unknown History valsartan 320 mg tablet 320 mg PO DAILY BP 12/29/24 Unknown History tizanidine 4 mg tablet See Rx Instructions PO QHS PRN 01/15/25 Unknown Rx muscle spasticity/muscle pain/insomnia #180 tabs aspirin 81 mg tablet 81 mg PO QDAY BLOOD THINNER 02/10/25 Unknown History leflunomide 20 mg tablet 20 mg PO QDAY RA 02/10/25 Unknown History albuterol sulfate 2.5 mg/3 mL 2.5 mg (3 mL) inhalation Q4H PRN 02/26/25 Unknown Rx (0.083 %) solution for nebulization Sob &/Or Wheezing #180 mL brexpiprazole 0.5 mg tablet 0.5 mg PO QHS ANTIDEPRESSANT 03/04/25 Unknown History (Rexulti) linaclotide 72 mcg capsule 72 mcg PO MOWEFR CONSTIPATION 03/04/25 Unknown History prednisone 5 mg tablet 5 mg PO QDAY PRN RA 03/04/25 Unknown History propranolol 10 mg tablet 10 mg PO BID BP 03/11/25 Unknown History dextromethorphan IR 45 1 tab PO DAILY ANTIDEPRESSANT 06/09/25 Unknown History mg-bupropion ER 105 mg biphasic tablet (Auvelity) ergocalciferol (vitamin D2) 1,250 1,250 mcg PO QMONTH SUPPLEMENT 06/09/25 Unknown History mcg (50,000 unit) capsule (Vitamin D2) furosemide 40 mg tablet 40 mg PO DAILY DIUERTIC 06/09/25 Unknown History pravastatin 40 mg tablet 40 mg PO MOWEFR CHOLESTEROL 06/09/25 Unknown History spironolactone 25 mg tablet 25 mg PO DAILY BP 06/09/25 Unknown History (Aldactone) Allergy/AdvReac Type Severity Reaction Status Date / Time Penicillins Allergy Mild Hives Verified 06/09/25 15:37 adhesive tape AdvReac Severe Rash, Verified 06/09/25 15:37 itchy, raw acetaminophen (From Percocet) AdvReac Intermediate insomnia Verified 06/09/25 15:37 oxycodone (From Percocet) AdvReac Intermediate insomnia Verified 06/09/25 15:37 benzonatate (From Tessalon AdvReac Mild Itching Verified 06/09/25 15:37 Perles) Family History Brother CAD (coronary artery disease), Onset Age: 70 CABG Other Alcoholism Arthritis Asthma Heart disease Hyperlipemia Hypertension Surgical History Hx of colonoscopy Hx of colonoscopy Status post left foot surgery Hx of shoulder surgery History of hysterectomy History of foot surgery History of back surgery Status post trigger finger release History of carpal tunnel surgery History of rotator cuff surgery Social History Smoking Status: Former smoker Tobacco: How many years used: 40 Electronic Cigarette Use: with nicotine second hand exposure: Yes quit status: considering quitting alcohol intake: former substance use type: does not use what type of physical activity do you participate in: walking Audit: Pertinent Findings Pertinent Findings EKG Perinent findings: February 28, 2025. Sinus bradycardia with short [place]. ST elevation, consider early repolarization pericarditis or injury. ST and T wave abnormalities, consider anterior ischemia. (See echo and stress below) Stress test pertinent findings: April 15, 2025. EF of 85%. No areas of reversibility to suggest ischemia. No previous infarct. Echo (EF%) pertinent findings: 03/10/2025. EF of 70%. PASP is 35 mmHg. No aortic stenosis noted. Consult pertinent findings: October 27, 2022. Dr. Hernandez. 1. Hypertension-controlled at this time. Stable echo and stress test in 2020 (also in more recent stress and echo above in 2024). Continue current medical therapy. Recommendation Anesthesia Recommendation Anesthesia recommendation: OPTIMIZED for anesthesia
[2025-06-23] VITALS (20 sets, daily range): BP systolic 98–147; BP diastolic 49–97; PULSE 59–72; RESP 16–18; TEMP 36.3–37; O2SAT 96–100; BMI 29.5
--- OUTSIDE RECORDS SUMMARY | 2025-06-23 05:33 | XMS RPT_ITS | CCD ---
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 Order Comment: Speci men Type: BLOOD SPECIMEN Ordering Facility: [facility] Address: [address] [place] [address] Performed By: #### 1 988-5 #### [facility] CLIA [id number] [address] [place] [address] [place] Lymphocytes (Bld) [#/Vol] 1.90 10*3/uL Normal 1.00-4.00 [facility] Comment on above: Order Comment: Speci men Type: BLOOD SPECIMEN Ordering Facility: [facility] Address: [address] [place] [address] Performed By: #### 1 988-5 #### [facility] CLIA [id number] [address] [place] [address] [place] Lymphocytes/100 WBC (Bld) 29.3 % Normal [facility] Comment on above: Order Comment: Speci men Type: BLOOD SPECIMEN Ordering Facility: [facility] Address: [address] [place] [address] Performed By: #### 1 988-5 #### [facility] CLIA [id number] [address] [place] [address] [place] MCH (RBC) [Entitic mass] 28.4 pg Normal 26.0-34.0 [facility] Comment on above: Order Comment: Speci men Type: BLOOD SPECIMEN Ordering Facility: [facility] Address: [address] [place] [address] Performed By: #### 1 988-5 #### [facility] CLIA [id number] [address] [place] [address] [place] MCHC (RBC) [Mass/Vol] 31.5 g/dL Normal 30.5-36.0 [facility] Comment on above: Order Comment: Speci men Type: BLOOD SPECIMEN Ordering Facility: [facility] Address: [address] [place] [address] Performed By: #### 1 988-5 #### [facility] CLIA [id number] [address] [place] [address] [place] MCV (RBC) [Entitic vol] 90.1 fL Normal 80.0-100.0 [facility] Comment on above: Order Comment: Speci men Type: BLOOD SPECIMEN Ordering Facility: [facility] Address: [address] [place] [address] Performed By: #### 1 988-5 #### [facility] CLIA [id number] [address] [place] [address] [place] Monocytes (Bld) [#/Vol] 0.53 10*3/uL Normal <0.87 [facility] Comment on above: Order Comment: Speci men Type: BLOOD SPECIMEN Ordering Facility: [facility] Address: [address] [place] [address] Performed By: #### 1 988-5 #### [facility] CLIA [id number] [address] [place] [address] [place] Monocytes/100 WBC (Bld) 8.2 % Normal [facility] Comment on above: Order Comment: Speci men Type: BLOOD SPECIMEN Ordering Facility: [facility] Address: [address] [place] [address] Performed By: #### 1 988-5 #### [facility] CLIA [id number] [address] [place] [address] [place] Neutrophils (Bld) [#/Vol] 2.62 10*3/uL Normal 1.45-7.50 [facility] Comment on above: Order Comment: Speci men Type: BLOOD SPECIMEN Ordering Facility: [facility] Address: [address] [place] [address] Performed By: #### 1 988-5 #### [facility] CLIA [id number] [address] [place] [address] [place] Neutrophils/100 WBC (Bld) 40.4 % Normal [facility] Comment on above: Order Comment: Speci men Type: BLOOD SPECIMEN Ordering Facility: [facility] Address: [address] [place] [address] Performed By: #### 1 988-5 #### [facility] CLIA [id number] [address] [place] [address] [place] Nucleated RBC (Bld) [#/Vol] 10*3/uL Normal <0.01 [facility] Comment on above: Order Comment: Speci men Type: BLOOD SPECIMEN Ordering Facility: [facility] Address: [address] [place] [address] Performed By: #### 1 988-5 #### [facility] CLIA [id number] [address] [place] [address] [place] Nucleated RBC/100 WBC (Bld) [Ratio] 0.0 /100 WBC Normal [facility] Comment on above: Order Comment: Speci men Type: BLOOD SPECIMEN Ordering Facility: [facility] Address: [address] [place] [address] Performed By: #### 1 988-5 #### [facility] CLIA [id number] [address] [place] [address] [place] Platelet mean volume (Bld) [Entitic vol] 11.7 fL Normal 9.0-12.7 [facility] Comment on above: Order Comment: Speci men Type: BLOOD SPECIMEN Ordering Facility: [facility] Address: [address] [place] [address] Performed By: #### 1 988-5 #### [facility] CLIA [id number] [address] [place] [address] [place] Platelets (Bld) [#/Vol] 256 10*3/uL Normal 150-400 [facility] Comment on above: Order Comment: Speci men Type: BLOOD SPECIMEN Ordering Facility: [facility] Address: [address] [place] [address] Performed By: #### 1 988-5 #### [facility] CLIA [id number] [address] [place] [address] [place] RBC (Bld) [#/Vol] 4.55 10*6/uL Normal 3.90-5.20 [facility] Comment on above: Order Comment: Speci men Type: BLOOD SPECIMEN Ordering Facility: [facility] Address: [address] [place] [address] Performed By: #### 1 988-5 #### [facility] CLIA [id number] [address] [place] [address] [place] WBC (Bld) [#/Vol] 6.48 10*3/uL Normal 3.70-11.00 [facility] Comment on above: Order Comment: Speci men Type: BLOOD SPECIMEN Ordering Facility: [facility] Address: [address] [place] [address] Performed By: #### 1 988-5 #### [facility] CLIA [id number] [address] [place] [address] [place] CRP SerPl-mCncon 06-20-2025 CRP [Mass/Vol] mg/L Normal <0.9 [facility] Comment on above: Order Comment: Speci men Type: BLOOD SPECIMEN Ordering Facility: [facility] Address: [address] [place] [address] Performed By: #### 1 988-5 #### [facility] CLIA [id number] [address] [place] [address] [place] Comprehensive metabolic 2000 panelon 06-20-2025 Albumin [Mass/Vol] 4.1 g/dL Normal 3.9-4.9 [facility] Comment on above: Order Comment: Speci men Type: BLOOD SPECIMEN Ordering Facility: [facility] Address: [address] [place] [address] Performed By: #### 1 988-5 #### [facility] CLIA [id number] [address] [place] [address] [place] ALP [Catalytic activity/Vol] 71 U/L Normal 34-123 [facility] Comment on above: Order Comment: Speci men Type: BLOOD SPECIMEN Ordering Facility: [facility] Address: [address] [place] [address] Performed By: #### 1 988-5 #### [facility] CLIA [id number] [address] [place] [address] [place] ALT [Catalytic activity/Vol] 38 U/L Normal 7-38 [facility] Comment on above: Order Comment: Speci men Type: BLOOD SPECIMEN Ordering Facility: [facility] Address: [address] [place], [place] [id number] Performed By: #### 1 988-5 #### [facility] CLIA [id number] [address] [place] [address] [place] Anion gap [Moles/Vol] 13 mmol/L Normal 8-15 [facility] Comment on above: Order Comment: Speci men Type: BLOOD SPECIMEN Ordering Facility: [facility] Address: [address] [place] [address] Performed By: #### 1 988-5 #### [facility] CLIA [id number] [address] [place] [address] [place] AST [Catalytic activity/Vol] 86 U/L High 13-35 [facility] Comment on above: Order Comment: Speci men Type: BLOOD SPECIMEN Ordering Facility: [facility] Address: [address] [place] [address] Performed By: #### 1 988-5 #### [facility] CLIA [id number] [address] [place] [address] [place] Bilirubin [Mass/Vol] 0.3 mg/dL Normal 0.2-1.3 [facility] Comment on above: Order Comment: Speci men Type: BLOOD SPECIMEN Ordering Facility: [facility] Address: [address] [place] [address] Performed By: #### 1 988-5 #### [facility] CLIA [id number] [address] [place] [address] [place] Calcium [Mass/Vol] 9.7 mg/dL Normal 8.5-10.2 [facility] Comment on above: Order Comment: Speci men Type: BLOOD SPECIMEN Ordering Facility: [facility] Address: [address] [place] [address] Performed By: #### 1 988-5 #### [facility] CLIA [id number] [address] [place] [address] [place] Chloride [Moles/Vol] 107 mmol/L Normal 98-107 [facility] Comment on above: Order Comment: Speci men Type: BLOOD SPECIMEN Ordering Facility: [facility] Address: [address] [place] [address] Performed By: #### 1 988-5 #### [facility] CLIA [id number] [address] [place] [address] [place] CO2 [Moles/Vol] 21 mmol/L Low 22-30 [facility] Comment on above: Order Comment: Speci men Type: BLOOD SPECIMEN Ordering Facility: [facility] Address: [address] [place] [address] Performed By: #### 1 988-5 #### [facility] CLIA [id number] [address] [place] [address] [place] Creatinine [Mass/Vol] 0.80 mg/dL Normal 0.58-0.96 [facility] Comment on above: Order Comment: Speci men Type: BLOOD SPECIMEN Ordering Facility: [facility] Address: [address] [place] [address] Performed By: #### 1 988-5 #### [facility] CLIA [id number] [address] [place] [address] [place] eGFRcr SerPlBld CKD-EPI 2020 79 mL/min/1.73m??? Normal >=60 [facility] Comment on above: Order Comment: Speci men Type: BLOOD SPECIMEN Ordering Facility: [facility] Address: [address] [place] [address] Result Comment: Mariza mated Glomerular Filtration Rate [...] reflect actual GFR. Performed By: #### 1 988-5 #### [facility] CLIA [id number] [address] [place] [address] [place] Glucose [Mass/Vol] 106 mg/dL High 74-99 [facility] Comment on above: Order Comment: Pauly magallanes Type: BLOOD SPECIMEN Ordering Facility: [facility] Address: [address] [place] [address] Result Comment: The [place] [employer] (ADA) provides guidance for cutoff [...] Standards of Medical Care in Diabetes 2016, [place]. Diabetes Care. 2016.39(Suppl 1). Performed By: #### 1 988-5 #### [facility] CLIA [id number] [address] [place] [address] [place] Potassium [Moles/Vol] 4.2 mmol/L Normal 3.7-5.1 [facility] Comment on above: Order Comment: Pauly magallanes Type: BLOOD SPECIMEN Ordering Facility: [facility] Address: [address] [place] [address] Performed By: #### 1 988-5 #### [facility] CLIA [id number] [address] [place] [address] [place] Protein [Mass/Vol] 6.6 g/dL Normal 6.3-8.0 [facility] Comment on above: Order Comment: Pauly magallanes Type: BLOOD SPECIMEN Ordering Facility: [facility] Address: [address] [place] [address] Performed By: #### 1 988-5 #### [facility] CLIA [id number] [address] [place] [address] [place] Sodium [Moles/Vol] 141 mmol/L Normal 136-144 [facility] Comment on above: Order Comment: Speci men Type: BLOOD SPECIMEN Ordering Facility: [facility] Address: [address] [place] [address] Performed By: #### 1 988-5 #### [facility] CLIA [id number] [address] [place] [address] [place] Urea nitrogen [Mass/Vol] 16 mg/dL Normal 7-21 [facility] Comment on above: Order Comment: Speci men Type: BLOOD SPECIMEN Ordering Facility: [facility] Address: [address] [place] [address] Performed By: #### 1 988-5 #### [facility] CLIA [id number] [address] [place] [address] [place] ESR Westergren method (Bld) [Velocity]on 06-20-2025 ESR (Bld) [Velocity] 6 mm/h Normal 0-20 [facility] Comment on above: Order Comment: Speci men Type: BLOOD SPECIMEN Ordering Facility: [facility] Address: [address] [place] [address] Performed By: #### 1 988-5 #### [facility] CLIA [id number] [address] [place] [address] [place] Orthopedic Visit Reporton Orthopedic Visit Report Normal [facility] MRSA/SAID NASAL SCREENon MRSA+SAID SCRN Reason for Exam: Jazmin clarisse MRSA MRSA Negative S. AUREUS S. aureus Negative Normal [facility] Comment on above: Performed By: #### L 500.2500, L501.9985, L100.0100, BTS, M100.651 ####[facility] [address] [place], [address] Basic Metabolic Profile (BMP )on 06-12-2025 BUN/CRE 22.7 RATIO High 10- [facility] Comment on above: Performed By: #### L 500.2500, L501.9985, L100.0100, BTS, M100.651 ####[facility] [address] [place], [address] Calcium [Mass/Vol] 9.7 mg/dL Normal 7.6-11.0 [facility] Comment on above: Performed By: #### L 500.2500, L501.9985, L100.0100, BTS, M100.651 ####[facility] [address] [place], [address] Chloride [Moles/Vol] 105 mmol/L Normal 98-108 [facility] Comment on above: Performed By: #### L 500.2500, L501.9985, L100.0100, BTS, M100.651 ####[facility] [address] [place], [address] CO2 [Moles/Vol] 28.4 mmol/L Normal 21.0-32.0 [facility] Comment on above: Performed By: #### L 500.2500, L501.9985, L100.0100, BTS, M100.651 ####[facility] [address] [place], [address] Creatinine [Mass/Vol] 1.01 mg/dL Normal 0.70-1.20 [facility] Comment on above: Performed By: #### L 500.2500, L501.9985, L100.0100, BTS, M100.651 ####[facility] [address] [place], [address] GAP 9 Normal 5-15 [facility] Comment on above: Performed By: #### L 500.2500, L501.9985, L100.0100, BTS, M100.651 ####[facility] [address] [place], [address] GFR/1.73 sq M.predicted among non-blacks MDRD (S/P/Bld) [Vol rate/Area] 60 mL/min/{1.73_m2} Normal >60 [facility] Comment on above: Result Comment: mL/m in/1.73m2 CKD-EPI Creatinine Equation (2020) Performed By: #### L 500.2500, L501.9985, L100.0100, BTS, M100.651 ####[facility] [address] [place], [address] Glucose [Mass/Vol] 102 mg/dL High 70-99 [facility] Comment on above: Performed By: #### L 500.2500, L501.9985, L100.0100, BTS, M100.651 ####[facility] [address] [place], [address] Potassium [Moles/Vol] 4.1 mmol/L Normal 3.3-5.1 [facility] Comment on above: Performed By: #### L 500.2500, L501.9985, L100.0100, BTS, M100.651 ####[facility] [address] [place], [address] Sodium [Moles/Vol] 143 mmol/L Normal 133-145 [facility] Comment on above: Performed By: #### L 500.2500, L501.9985, L100.0100, BTS, M100.651 ####[facility] [address] [place], [address] Urea nitrogen [Mass/Vol] 23 mg/dL High 4-19 [facility] Comment on above: Performed By: #### L 500.2500, L501.9985, L100.0100, BTS, M100.651 ####[facility] [address] [place], [address] CBC W/Diff, Automatedon 10-0 -2024 Absolute Lymph 1.93 X10 3/uL Normal 0.83-4.51 [facility] Comment on above: Performed By: #### L 500.2500, L501.9985, L100.0100, BTS, M100.651 ####[facility] [address] [place], [address] Absolute Neut 2.2 X10 3/uL Normal 2.0-7.7 [facility] Comment on above: Performed By: #### L 500.2500, L501.9985, L100.0100, BTS, M100.651 ####[facility] [address] [place], [address] Basophils/100 WBC (Bld) 1.5 % High 0-1 [facility] Comment on above: Performed By: #### L 500.2500, L501.9985, L100.0100, BTS, M100.651 ####[facility] [address] [place], [address] Eosinophils/100 WBC (Bld) 17.8 % High 0-5 [facility] Comment on above: Performed By: #### L 500.2500, L501.9985, L100.0100, BTS, M100.651 ####[facility] [address] [place], [address] Erythrocyte distribution width (RBC) [Ratio] 14.0 % Normal 11.6-14.6 [facility] Comment on above: Performed By: #### L 500.2500, L501.9985, L100.0100, BTS, M100.651 ####[facility] [address] [place], [address] Hematocrit (Bld) [Volume fraction] 41.2 % Normal 37-47 [facility] Comment on above: Performed By: #### L 500.2500, L501.9985, L100.0100, BTS, M100.651 ####[facility] [address] [place], [address] Hemoglobin (Bld) [Mass/Vol] 12.7 g/dL Normal 12.0-15.0 [facility] Comment on above: Performed By: #### L 500.2500, L501.9985, L100.0100, BTS, M100.651 ####[facility] [address] [place], [address] IG% 0.200 Normal 0.0-0.9 [facility] Comment on above: Result Comment: IG% - Immature Granulocytes (promyelocytes, myelocytes andmetamyelocytes) > 1% indicates that a LEFT SHIFT is Present. Performed By: #### L 500.2500, L501.9985, L100.0100, BTS, M100.651 ####[facility] [address] [place], [address] Lymphocytes/100 WBC (Bld) 33.1 % Normal 19-41 [facility] Comment on above: Performed By: #### L 500.2500, L501.9985, L100.0100, BTS, M100.651 ####[facility] [address] [place], [address] MCH (RBC) [Entitic mass] 28.0 pg Normal 27.0-32.0 [facility] Comment on above: Performed By: #### L 500.2500, L501.9985, L100.0100, BTS, M100.651 ####[facility] [address] [place], [address] MCHC (RBC) [Mass/Vol] 30.8 g/dL Low 32-36 [facility] Comment on above: Performed By: #### L 500.2500, L501.9985, L100.0100, BTS, M100.651 ####[facility] [address] [place], [address] MCV (RBC) [Entitic vol] 90.7 fL Normal 81-99 [facility] Comment on above: Performed By: #### L 500.2500, L501.9985, L100.0100, BTS, M100.651 ####[facility] [address] [place], [address] Monocytes/100 WBC (Bld) 9.6 % Normal 0-10 [facility] Comment on above: Performed By: #### L 500.2500, L501.9985, L100.0100, BTS, M100.651 ####[facility] [address] [place], [address] Neutrophils/100 WBC (Bld) 37.8 % Low 47-70 [facility] Comment on above: Performed By: #### L 500.2500, L501.9985, L100.0100, BTS, M100.651 ####[facility] [address] [place], [address] Nucleated RBC (Bld) [#/Vol] 0 10*3/uL Normal 0-5 [facility] Comment on above: Performed By: #### L 500.2500, L501.9985, L100.0100, BTS, M100.651 ####[facility] [address] [place], [address] Platelet mean volume (Bld) [Entitic vol] 11.6 fL Normal 6.2-12.0 [facility] Comment on above: Performed By: #### L 500.2500, L501.9985, L100.0100, BTS, M100.651 ####[facility] [address] [place], [address] Platelets (Bld) [#/Vol] 233 10*3/uL Normal 150-450 [facility] Comment on above: Performed By: #### L 500.2500, L501.9985, L100.0100, BTS, M100.651 ####[facility] [address] [place], [address] RBC (Bld) [#/Vol] 4.54 10*6/uL Normal 4.2-5.4 [facility] Comment on above: Performed By: #### L 500.2500, L501.9985, L100.0100, BTS, M100.651 ####[facility] [address] [place], [address] RDW SD 46.2 fl High 35.1-43.9 [facility] Comment on above: Performed By: #### L 500.2500, L501.9985, L100.0100, BTS, M100.651 ####[facility] [address] [place], [address] WBC (Bld) [#/Vol] 5.8 10*3/uL Normal 4.4-11.0 [facility] Comment on above: Performed By: #### L 500.2500, L501.9985, L100.0100, BTS, M100.651 ####[facility] [address] [place], [address] Hemoglobin A1con 06-12-2025 HbA1c (Bld) [Mass fraction] 6.2 % High <=5.6 [facility] Comment on above: Result Comment: Norm al < 5.7 % Prediabetic 5.7 - 6.4 % Diabetic >or= 6.5 % Please note range changes. Performed By: #### L 500.2500, L501.9985, L100.0100, BTS, M100.651 ####[facility] [address] [place], [address] Magnesiumon 06-12-2025 Magnesium [Mass/Vol] 2.1 mg/dL Normal 1.5-2.2 [facility] Comment on above: Performed By: #### L 501.5200 ####[facility] [address] [place], [address] Neurology Visit Reporton Neurology Visit Report Normal [facility] Type AND Screenon 06-12-2025 ABO and Rh group Nom (Bld) Blood group O Rh(D) positive Normal [facility] Comment on above: Order Comment: Surge ry Date: 06/23/25Reason for Laboratory Test [id number] Performed By: #### L 500.2500, L501.9985, L100.0100, BTS, M100.651 ####[facility] [address] [place], [address] CNOVon 06-11-2025 CNOV Office Visit (RHWSTR ) LELE PANG ([id number]) 1955 F Date Time Provider Department 06/11/25 2:00 PM WINNIE HERNANDEZ WSTR During your visit today, we recorded the following information about you: Pulse Respiration Blood pressure Weight 74/minute 16/minute 104/62 61.8 kg iWnnie Hernandez PA-C 06/11/2025 5:49 PM Signed Rheumatology Clinic Visit June 11, 2025 Last seen: 03/06/2025 (with Winnie Hernandez) CC: Established Patient (Follow up) HPI: Lele Pang is a 70 year old female who follows with rheumatology for Rheumatoid arthritis. BRIEF RHEUM History: Diagnosed with RA in 2015 though [facility] after multiple trigger finger surgeries and elevated rheumatologic markers. - Initially treated with methotrexate injections, which was later switched to leflunomide -history of osteoarthritis in her back and hips, for which she receives injections. She recently had a lumbar injection for severe sciatica with pain management at [facility], which significantly limited her mobility and [...] injection site reaction, skin dicoloration) Current clinical: Surgery scheduled 06/23/[address] Chow at [facility], planning a lumbar fusion L4. Mood is doing a bit better. Managing this with her psychiatrist. Changing some meds. Had to titrate off her old meds, and now using new meds (Auvelity) Rheumatoid seems to be doing OK. Not having much in terms of hand and wrist pain. Admit some swelling in ankles, not much pain. Worse at end of day Denies significant peripheral joint pain. Denies morning stiffness. Denies weight loss, night sweats, or GI side effects Monitoring: Labs 05/29 - Rise in Creat Blood TB Negative (02/11/2025) Remote Hep Latest Ref Rng AND Units 02/11/2025 Hepatitis Screen Hep B Core Ab, Total Negative Negative Hep B Surf Ab Qual Negative Hep C Antibody IA Negative Negative Hep B Surface Ag Negative Negative Last Bone Density: 12/18/2024 at [facility] - LS T-score -2.2 stable (3% increase) - RFN T-score -1.7 - R Total Hip T-score -1.4 stable (0.3% decrease) Last Uric acid Latest Ref Rng AND Units 01/27/2013 Uric Acid Uric Acid 2.5 - 6.2 mg/dL 6.7 Sed rate/CRP Latest Ref Rng AND Units 09/26/2023 02/11/2025 05/26/2025 ESR, WSR WSR 0 - 20 mm/hr 2 2 5 Latest Ref Rng AND Units 02/11/2025 05/26/2025 CRP CRP <0.9 mg/dL <0.3 <0.3 OUTSIDE STUDIES / DATA Labs done 25 at [facility]. Sed rate 7 normal BMP with elevated BUN 23 normal creatinine 0.92 AST ALT normal Tisha 1 negative SSA negative SSB negative Small negative PULL THROUGH HOOKER negative SCL 70 negative double-stranded DNA negative [...] X-ray left foot November 14, 2018 mild de (more content not included)... Normal [facility] MR/PAT.ANEon 06-09-2025 MR/PAT.ANE Normal [facility] CBC W Auto Differential pane l (Bld)on 05-26-2025 Basophils (Bld) [#/Vol] 0.10 10*3/uL Normal <0.11 [facility] Comment on above: Order Comment: Speci men Type: BLOOD SPECIMEN Ordering Facility: [facility] Address: [address] [place] [address] Performed By: #### 2 4323-8 #### [facility] CLIA [id number] [address] [place] [address] [place] Basophils/100 WBC (Bld) 1.2 % Normal [facility] Comment on above: Order Comment: Speci men Type: BLOOD SPECIMEN Ordering Facility: [facility] Address: [address] [place] [address] Performed By: #### 2 4323-8 #### [facility] CLIA [id number] [address] [place] [address] [place] Differential cell count method Nom (Bld) Auto Normal [facility] Comment on above: Order Comment: Speci men Type: BLOOD SPECIMEN Ordering Facility: [facility] Address: [address] [place] [address] Performed By: #### 2 4323-8 #### [facility] CLIA [id number] [address] [place] [address] [place] Eosinophils (Bld) [#/Vol] 1.49 10*3/uL High <0.46 [facility] Comment on above: Order Comment: Speci men Type: BLOOD SPECIMEN Ordering Facility: [facility] Address: [address] [place] [address] Performed By: #### 2 4323-8 #### [facility] CLIA [id number] [address] [place] [address] [place] Eosinophils/100 WBC (Bld) 17.8 % Normal [facility] Comment on above: Order Comment: Speci men Type: BLOOD SPECIMEN Ordering Facility: [facility] Address: [address] [place] [address] Performed By: #### 2 4323-8 #### [facility] CLIA [id number] [address] [place] [address] [place] Erythrocyte distribution width (RBC) [Ratio] 13.3 % Normal 11.5-15.0 [facility] Comment on above: Order Comment: Speci men Type: BLOOD SPECIMEN Ordering Facility: [facility] Address: [address] [place] [address] Performed By: #### 2 4323-8 #### [facility] CLIA [id number] [address] [place] [address] [place] Hematocrit (Bld) [Volume fraction] 42.6 % Normal 36.0-46.0 [facility] Comment on above: Order Comment: Speci men Type: BLOOD SPECIMEN Ordering Facility: [facility] Address: [address] [place] [address] Performed By: #### 2 4323-8 #### [facility] CLIA [id number] [address] [place] [address] [place] Hemoglobin (Bld) [Mass/Vol] 13.7 g/dL Normal 11.5-15.5 [facility] Comment on above: Order Comment: Speci men Type: BLOOD SPECIMEN Ordering Facility: [facility] Address: [address] [place] [address] Performed By: #### 2 4323-8 #### [facility] CLIA [id number] [address] [place] [address] [place] Immature granulocytes (Bld) [#/Vol] 10*3/uL Normal <0.10 [facility] Comment on above: Order Comment: Speci men Type: BLOOD SPECIMEN Ordering Facility: [facility] Address: [address] [place] [address] Performed By: #### 2 4323-8 #### [facility] CLIA [id number] [address] [place] [address] [place] Immature granulocytes/100 WBC (Bld) 0.2 % Normal [facility] Comment on above: Order Comment: Speci men Type: BLOOD SPECIMEN Ordering Facility: [facility] Address: [address] [place] [address] Performed By: #### 2 4323-8 #### [facility] CLIA [id number] [address] [place] [address] [place] Lymphocytes (Bld) [#/Vol] 2.31 10*3/uL Normal 1.00-4.00 [facility] Comment on above: Order Comment: Speci men Type: BLOOD SPECIMEN Ordering Facility: [facility] Address: [address] [place] [address] Performed By: #### 2 4323-8 #### [facility] CLIA [id number] [address] [place] [address] [place] Lymphocytes/100 WBC (Bld) 27.5 % Normal [facility] Comment on above: Order Comment: Speci men Type: BLOOD SPECIMEN Ordering Facility: [facility] Address: [address] [place] [address] Performed By: #### 2 4323-8 #### [facility] CLIA [id number] [address] [place] [address] [place] MCH (RBC) [Entitic mass] 28.8 pg Normal 26.0-34.0 [facility] Comment on above: Order Comment: Speci men Type: BLOOD SPECIMEN Ordering Facility: [facility] Address: [address] [place] [address] Performed By: #### 2 4323-8 #### [facility] CLIA [id number] [address] [place] [address] [place] MCHC (RBC) [Mass/Vol] 32.2 g/dL Normal 30.5-36.0 [facility] Comment on above: Order Comment: Speci men Type: BLOOD SPECIMEN Ordering Facility: [facility] Address: [address] [place] [address] Performed By: #### 2 4323-8 #### [facility] CLIA [id number] [address] [place] [address] [place] MCV (RBC) [Entitic vol] 89.5 fL Normal 80.0-100.0 [facility] Comment on above: Order Comment: Speci men Type: BLOOD SPECIMEN Ordering Facility: [facility] Address: [address] [place] [address] Performed By: #### 2 4323-8 #### [facility] CLIA [id number] [address] [place] [address] [place] Monocytes (Bld) [#/Vol] 0.71 10*3/uL Normal <0.87 [facility] Comment on above: Order Comment: Speci men Type: BLOOD SPECIMEN Ordering Facility: [facility] Address: [address] [place] [address] Performed By: #### 2 4323-8 #### [facility] CLIA [id number] [address] [place] [address] [place] Monocytes/100 WBC (Bld) 8.5 % Normal [facility] Comment on above: Order Comment: Speci men Type: BLOOD SPECIMEN Ordering Facility: [facility] Address: [address] [place] [address] Performed By: #### 2 4323-8 #### [facility] CLIA [id number] [address] [place] [address] [place] Neutrophils (Bld) [#/Vol] 3.76 10*3/uL Normal 1.45-7.50 [facility] Comment on above: Order Comment: Speci men Type: BLOOD SPECIMEN Ordering Facility: [facility] Address: [address] [place] [address] Performed By: #### 2 4323-8 #### [facility] CLIA [id number] [address] [place] [address] [place] Neutrophils/100 WBC (Bld) 44.8 % Normal [facility] Comment on above: Order Comment: Speci men Type: BLOOD SPECIMEN Ordering Facility: [facility] Address: [address] [place] [address] Performed By: #### 2 4323-8 #### [facility] CLIA [id number] [address] [place] [address] [place] Nucleated RBC (Bld) [#/Vol] 10*3/uL Normal <0.01 [facility] Comment on above: Order Comment: Speci men Type: BLOOD SPECIMEN Ordering Facility: [facility] Address: [address] [place] [address] Performed By: #### 2 4323-8 #### [facility] CLIA [id number] [address] [place] [address] [place] Nucleated RBC/100 WBC (Bld) [Ratio] 0.0 /100 WBC Normal [facility] Comment on above: Order Comment: Speci men Type: BLOOD SPECIMEN Ordering Facility: [facility] Address: [address] [place] [address] Performed By: #### 2 4323-8 #### [facility] CLIA [id number] [address] [place] [address] [place] Platelet mean volume (Bld) [Entitic vol] 10.9 fL Normal 9.0-12.7 [facility] Comment on above: Order Comment: Speci men Type: BLOOD SPECIMEN Ordering Facility: [facility] Address: [address] [place] [address] Performed By: #### 2 4323-8 #### [facility] CLIA [id number] [address] [place] [address] [place] Platelets (Bld) [#/Vol] 227 10*3/uL Normal 150-400 [facility] Comment on above: Order Comment: Speci men Type: BLOOD SPECIMEN Ordering Facility: [facility] Address: [address] [place] [address] Performed By: #### 2 4323-8 #### [facility] CLIA [id number] [address] [place] [address] [place] RBC (Bld) [#/Vol] 4.76 10*6/uL Normal 3.90-5.20 [facility] Comment on above: Order Comment: Speci men Type: BLOOD SPECIMEN Ordering Facility: [facility] Address: [address] [place] [address] Performed By: #### 2 4323-8 #### [facility] CLIA [id number] [address] [place] [address] [place] WBC (Bld) [#/Vol] 8.39 10*3/uL Normal 3.70-11.00 [facility] Comment on above: Order Comment: Speci men Type: BLOOD SPECIMEN Ordering Facility: [facility] Address: [address] [place] [address] Performed By: #### 2 4323-8 #### [facility] CLIA [id number] [address] [place] [address] [place] CRP SerPl-mCncon 05-26-2025 CRP [Mass/Vol] mg/L Normal <0.9 [facility] Comment on above: Order Comment: Speci men Type: BLOOD SPECIMEN Ordering Facility: [facility] Address: [address] [place], [place] [address] Performed By: #### 1 988-5 #### [facility] CLIA [id number] [address] [place] [address] [place] Comprehensive metabolic 2000 panelon 05-26-2025 Albumin [Mass/Vol] 4.2 g/dL Normal 3.9-4.9 [facility] Comment on above: Order Comment: Speci men Type: BLOOD SPECIMEN Ordering Facility: [facility] Address: [address] [place] [address] Performed By: #### 2 4323-8 #### [facility] CLIA [id number] [address] [place] [address] [place] ALP [Catalytic activity/Vol] 91 U/L Normal 34-123 [facility] Comment on above: Order Comment: Speci men Type: BLOOD SPECIMEN Ordering Facility: [facility] Address: [address] [place] [address] Performed By: #### 2 4323-8 #### [facility] CLIA [id number] [address] [place] [address] [place] ALT [Catalytic activity/Vol] 23 U/L Normal 7-38 [facility] Comment on above: Order Comment: Speci men Type: BLOOD SPECIMEN Ordering Facility: [facility] Address: [address] [place] [address] Performed By: #### 2 4323-8 #### [facility] CLIA [id number] [address] [place] [address] [place] Anion gap [Moles/Vol] 13 mmol/L Normal 8-15 [facility] Comment on above: Order Comment: Speci men Type: BLOOD SPECIMEN Ordering Facility: [facility] Address: [address] [place] [address] Performed By: #### 2 4323-8 #### [facility] CLIA [id number] [address] [place] [address] [place] AST [Catalytic activity/Vol] 39 U/L High 13-35 [facility] Comment on above: Order Comment: Speci men Type: BLOOD SPECIMEN Ordering Facility: [facility] Address: [address] [place] [address] Performed By: #### 2 4323-8 #### [facility] CLIA [id number] [address] [place] [address] [place] Bilirubin [Mass/Vol] 0.4 mg/dL Normal 0.2-1.3 [facility] Comment on above: Order Comment: Speci men Type: BLOOD SPECIMEN Ordering Facility: [facility] Address: [address] [place] [address] Performed By: #### 2 4323-8 #### [facility] CLIA [id number] [address] [place] [address] [place] Calcium [Mass/Vol] 10.6 mg/dL High 8.5-10.2 [facility] Comment on above: Order Comment: Speci men Type: BLOOD SPECIMEN Ordering Facility: [facility] Address: [address] [place] [address] Performed By: #### 2 4323-8 #### [facility] CLIA [id number] [address] [place] [address] [place] Chloride [Moles/Vol] 103 mmol/L Normal 98-107 [facility] Comment on above: Order Comment: Speci men Type: BLOOD SPECIMEN Ordering Facility: [facility] Address: [address] [place] [address] Performed By: #### 2 4323-8 #### [facility] CLIA [id number] [address] [place] [address] [place] CO2 [Moles/Vol] 21 mmol/L Low 22-30 [facility] Comment on above: Order Comment: Speci men Type: BLOOD SPECIMEN Ordering Facility: [facility] Address: [address] [place] [address] Performed By: #### 2 4323-8 #### [facility] CLIA [id number] [address] [place] [address] [place] Creatinine [Mass/Vol] 1.05 mg/dL High 0.58-0.96 [facility] Comment on above: Order Comment: Speci men Type: BLOOD SPECIMEN Ordering Facility: [facility] Address: [address] [place] [address] Performed By: #### 2 4323-8 #### [facility] CLIA [id number] [address] [place] [address] [place] eGFRcr SerPlBld CKD-EPI 2020 57 mL/min/1.73m??? Low >=60 [facility] Comment on above: Order Comment: Pauly magallanes Type: BLOOD SPECIMEN Ordering Facility: [facility] Address: [address] [place] [address] Result Comment: Mariza mated Glomerular Filtration Rate [...] accurately reflect actual GFR. Performed By: #### 2 4323-8 #### [id number] [address] [place] [address] [place] Glucose [Mass/Vol] 113 mg/dL High 74-99 [facility] Comment on above: Order Comment: Pauly magallanes Type: BLOOD SPECIMEN Ordering Facility: [facility] Address: [address] [place] [address] Result Comment: The [place] Diabetes [employer] (ADA) provides guidance for cutoff [...] Standards of Medical Care in Diabetes 2016, [place] [employer]. Diabetes Care. 2016.39(Suppl 1). Performed By: #### 2 4323-8 #### [facility] [id number] [address] [place] [address] [place] Potassium [Moles/Vol] 4.2 mmol/L Normal 3.7-5.1 [facility] Comment on above: Order Comment: Speci men Type: BLOOD SPECIMEN Ordering Facility: [facility] Address: [address] [place] [address] Performed By: #### 2 4323-8 #### [facility] CLIA [id number] [address] [place] [address] [place] Protein [Mass/Vol] 7.0 g/dL Normal 6.3-8.0 [facility] Comment on above: Order Comment: Speci men Type: BLOOD SPECIMEN Ordering Facility: [facility] Address: [address] [place] [address] Performed By: #### 2 4323-8 #### [facility] [id number] [address] [place] [address] [place] Sodium [Moles/Vol] 137 mmol/L Normal 136-144 [facility] Comment on above: Order Comment: Speci men Type: BLOOD SPECIMEN Ordering Facility: [facility] Address: [address] [place] [address] Performed By: #### 2 4323-8 #### [facility] [id number] [address] [place] [address] [place] Urea nitrogen [Mass/Vol] 22 mg/dL High 7-21 [facility] Comment on above: Order Comment: Speci men Type: BLOOD SPECIMEN Ordering Facility: [facility] Address: [address] [place] [address] Performed By: #### 2 4323-8 #### [facility] [id number] [address] [place] [address] [place] ESR Westergren method (Bld) [Velocity]on 05-26-2025 ESR (Bld) [Velocity] 5 mm/h Normal 0-20 [facility] Comment on above: Order Comment: Speci men Type: BLOOD SPECIMEN Ordering Facility: [facility] Address: [address] [place] [address] Performed By: #### 4 537-7 #### [facility] CLIA [id number] [address] [place], [place] [address] [address] [place] L3410.9992on 05-04-2025 [facility] Misc. COMMENT Normal . [facility] Comment on above: Order Comment: [id number] 6METANEPHRINES LAV SERUM RF Result Comment: Test Ordered: [id number] Metanephrines, Frac., Pl. FreeTest(s) 967154-Rjmvsfmipafuyrb, Pl; 579895-Osviebpvavgm, Plwas developed and its performance characteristicsdetermined by [employer]. It has not been cleared or approvedby the Food and Drug Administration.Normetanephrine, Pl 318.9 [H ] pg/mL BN Reference Range: 0.0-285.2Metanephrine, Pl 71.7 pg/mL Reference Range: 0.0-88.0Performed at: [address] [id number] Director: Dereck Buchanan MD, Phone: [phone] at: [address] [id number] Director: Fady Alfaro PhD, Phone: [phone] Performed By: #### L 500.3600, L501.0900, L3400.4000, L3300.1100, L3410.9992 ####[facility] [address] [place], [address] Aldosterone, Serumon 025 ALDOSTERONE,S 16.8 ng/dL Normal 0.0-30.0 [facility] Comment on above: Order Comment: Test( s) 700022-Jrigf Activity, Plasmawas developed and its performance characteristicsdetermined by [facility]. It has not been cleared or approvedby the Food and Drug Administration. Result Comment: Perf ormed at: [address] [id number] Director: Dereck Buchanan MD, Phone: [phone] Performed By: #### L 500.3600, L501.0900, L3400.4000, L3300.1100, L3410.9992 ####[facility] [address] [place], [address] Renin, Plasmaon 05-03-2025 RENIN, PLASMA 41.466 ng/mL/hr High 0.167-5.380 [facility] Comment on above: Order Comment: Test( s) 251382-Oufjj Activity, Plasmawas developed and its performance characteristicsdetermined by [employer]. It has not been cleared or approvedby the Food and Drug Administration. Performed By: #### L 500.3600, L501.0900, L3400.4000, L3300.1100, L3410.9992 ####[facility] [address] [place], [address] Protein+Creatinine Ratio,Uri neon 04-25-2025 PROT:CRE RATIO 151 mg/g CRE Normal 0-200 [facility] Comment on above: Performed By: #### L 500.3600, L501.0900, L3400.4000, L3300.1100, L3410.9992 ####[facility] [address] [place], [address] Protein (U) [Mass/Vol] 12.6 mg/dL High 0.0-12.0 [facility] Comment on above: Performed By: #### L 500.3600, L501.0900, L3400.4000, L3300.1100, L3410.9992 ####[facility] [address] [place], [address] UR CREAT 83.70 mg/dL Normal 28.00-217.00 [facility] Comment on above: Performed By: #### L 500.3600, L501.0900, L3400.4000, L3300.1100, L3410.9992 ####[facility] [address] [place], [address] Renal Profileon 04-25-2025 Albumin [Mass/Vol] 4.2 g/dL Normal 3.4-4.8 [facility] Comment on above: Performed By: #### L 500.3600, L501.0900, L3400.4000, L3300.1100, L3410.9992 ####[facility] [address] [place], [address] BUN/CRE 21.7 RATIO High 10-20 [facility] Comment on above: Performed By: #### L 500.3600, L501.0900, L3400.4000, L3300.1100, L3410.9992 ####[facility] [address] [place], [address] Calcium [Mass/Vol] 9.8 mg/dL Normal 7.6-11.0 [facility] Comment on above: Performed By: #### L 500.3600, L501.0900, L3400.4000, L3300.1100, L3410.9992 ####[facility] [address] [place], [address] Chloride [Moles/Vol] 104 mmol/L Normal 98-108 [facility] Comment on above: Performed By: #### L 500.3600, L501.0900, L3400.4000, L3300.1100, L3410.9992 ####[facility] [address] [place], [address] CO2 [Moles/Vol] 22.0 mmol/L Normal 21.0-32.0 [facility] Comment on above: Performed By: #### L 500.3600, L501.0900, L3400.4000, L3300.1100, L3410.9992 ####[facility] [address] [place], [address] Creatinine [Mass/Vol] 0.88 mg/dL Normal 0.70-1.20 [facility] Comment on above: Performed By: #### L 500.3600, L501.0900, L3400.4000, L3300.1100, L3410.9992 ####[facility] [address] [place], [address] GAP 15 Normal 5-15 [facility] Comment on above: Performed By: #### L 500.3600, L501.0900, L3400.4000, L3300.1100, L3410.9992 ####[facility] [address] [place], [address] GFR/1.73 sq M.predicted among non-blacks MDRD (S/P/Bld) [Vol rate/Area] 71 mL/min/{1.73_m2} Normal >60 [facility] Comment on above: Result Comment: mL/m in/1.73m2 CKD-EPI Creatinine Equation (2020) Performed By: #### L 500.3600, L501.0900, L3400.4000, L3300.1100, L3410.9992 ####[facility] [address] [place], [address] Glucose [Mass/Vol] 104 mg/dL High 70-99 [facility] Comment on above: Performed By: #### L 500.3600, L501.0900, L3400.4000, L3300.1100, L3410.9992 ####[facility] [address] [place], [address] Phosphate [Mass/Vol] 2.9 mg/dL Normal 2.7-4.5 [facility] Comment on above: Performed By: #### L 500.3600, L501.0900, L3400.4000, L3300.1100, L3410.9992 ####[facility] [address] [place], [address] Potassium [Moles/Vol] 3.6 mmol/L Normal 3.3-5.1 [facility] Comment on above: Performed By: #### L 500.3600, L501.0900, L3400.4000, L3300.1100, L3410.9992 ####[facility] [address] [place], [address] Sodium [Moles/Vol] 141 mmol/L Normal 133-145 [facility] Comment on above: Performed By: #### L 500.3600, L501.0900, L3400.4000, L3300.1100, L3410.9992 ####[facility] [address] [place], [address] Urea nitrogen [Mass/Vol] 19 mg/dL Normal 4-19 [facility] Comment on above: Performed By: #### L 500.3600, L501.0900, L3400.4000, L3300.1100, L3410.9992 ####[facility] [address] [place], [address] Stress Reporton 04-15-2025 Stress Report Normal [facility] Hepatitis A AB, Totalon 03-04 HEPATITIS A,TOT Negative Normal Negative [facility] Comment on above: Result Comment: Comm [...] HAVtotal antibody results to IgM (e.g., panel #[id number] HAVAntibody w/ Rfx).Performed at: [address] [id number] Director: Dereck Buchanan MD, Phone: [phone] at: [address] [id number] Director: Fady Alfaro PhD, Phone: [phone] Performed By: #### L 3890.6691, L3600.3400, L3750.7992, L3890.6006, M100.651, L3100.0300, BTSPAT ####[facility] [address] [place], [place], [id number] Nicotine Screen Bloodon 03-04 COTININE BLOOD 11.2 ng/mL Normal . [facility] Comment on above: Result Comment: This test was developed and its performance characteristicsdetermined by [facility]. It has not been cleared orapproved by the Food and Drug Administration.Cotinine levels greater than 20.0 are consistent with theuse of tobacco or tobacco cessation products. Performed By: #### L 3890.6301, L3600.3400, L3890.6202, L3890.6006, M100.651, L3100.0300, BTSPAT ####[facility] [address] [place], [place], [id number] NICOTINE BLOOD <1.0 Normal . [facility] Comment on above: Result Comment: This test was developed and its performance characteristicsdetermined by [facility]. It has not been cleared orapproved by the Food and Drug Administration.Nicotine levels greater than 2.0 are consistent with theuse of tobacco or tobacco cessation products. Performed By: #### L 3890.6301, L3600.3400, L3890.6202, L3890.6006, M100.651, L3100.0300, BTSPAT ####[facility] [address] [place], [place], [id number] Pulmonary Visit Reporton Pulmonary Visit Report Normal [facility] Echo Completeon 03-10-2025 Echo Complete Normal [facility] HIVon 03-08-2025 HIV Non-Reactive Normal Nonreactive [facility] Comment on above: Result Comment: Non- ReactiveReactiveRepeatedly reactive samples must be confirmed according toCDC recommended confirmatory algorithms. The subresults foreither HIVAG or AHIV can be used as an aid in the selectionof the confirmation algorithm for reactive samples.Send out specimens with Reactive results to [facility] forconfirmation.Order the HIV antibody detection and differentiation:lc#[id number] Performed By: #### L 3890.6301, L3600.3400, L3890.6202, L3890.6006, M100.651, L3100.0300, BTSPAT ####[facility] [address] [place], [address] Hepatitis B Surface Antibody on 03-08-2025 HEP B Surf Ab Non-Reactive Normal [facility] Comment on above: Result Comment: <8.5 mIU/mL: Non-Reactive8.5<= x <11.5 mIU/mL: Indeterminate>=11.5 mIU/mL: Reactive Non Reactive: Inconsistent with immunity less than <10 mIU/mL Reactive: Consistent with immunity greater than or equal to 10 mIU/mL Performed By: #### L 3890.6301, L3600.3400, L3890.6202, L3890.6006, M100.651, L3100.0300, BTSPAT ####[facility] [address] [place], [address] Hepatitis C Antibodyon 03-08 Hepatitis C Ab Non-Reactive Normal Nonreactive [facility] Comment on above: Result Comment: Reac tive: Presumptive evidence of antibodies to HCV. [facility] recommendations for supplemental testing.Non-Reactive: Antibodies to HCV were not detected; does notexclude the possibility of exposure to HCVReactive Results are presumptive evidence of antibodies toHCV. Follow CDC recommendations for supplemental testing.Order confirmation testing: HCV Quant by PCR testing -[facility] #[id number] Non Reactive: < 0.8 Equivocal: >/= 0.8 to < 1.0 Reactive: >/= 1.0The CDC requires that a reactive/equivocal HCV antibodyresult be sent out for confirmation. HCV Quant by PCRtesting. Performed By: #### L 3890.6301, L3600.3400, L3890.6202, L3890.6006, M100.651, L3100.0300, BTSPAT ####[facility] [address] [place], [address] MRSA/SAID NASAL SCREENon MRSA+SAID SCRN Reason for Exam: Jazmin clarisse MRSA MRSA Negative S. AUREUS S. aureus Negative Normal [facility] Comment on above: Performed By: #### L 3890.6301, L3600.3400, L3890.6202, L3890.6006, M100.651, L3100.0300, BTSPAT ####[facility] [address] [place], [place], [address] Magnesiumon 03-08-2025 Magnesium [Mass/Vol] 2.2 mg/dL Normal 1.5-2.2 [facility] Comment on above: Performed By: #### L 501.5200 ####[facility] [address] [place], [place], [address] Type AND Screen - PAT ONLYon 03-08-2025 ABO and Rh group Nom (Bld) Blood group O Rh(D) positive Normal [facility] Comment on above: Order Comment: Surge ry Date: 03/17/25Reason for Laboratory Test [id number] Lumbar Fusion L3-4 anterior and revision posterior Performed By: #### L 3890.6301, L3600.3400, L3890.6202, L3890.6006, M100.651, L3100.0300, BTSPAT ####[facility] [address] [place], [place], [address] CNOVon 03-06-2025 CNOV Office Visit (RHWSTR ) LELE PANG ([id number]) 1955 F Date Time Provider Department 03/06/25 1:00 PM WINNIE HERNANDEZ RHWSTR During your visit today, we recorded the [...] in 2015 though [facility] after multiple trigger finger surgeries and elevated rheumatologic markers. - Initially treated with methotrexate injections, which was later switched to leflunomide -history of osteoarthritis in her back and hips, for which she receives injections. She recently had a lumbar injection for severe sciatica with pain management at [facility], which significantly limited her mobility and [...] stress test and ECHO done all through [facility]. Mentally she feels like she is [...] Negative Negative Last Bone Density: 12/18/2024 at [facility] - LS T-score -2.2 stable (3% [...] OUTSIDE STUDIES / DATA Labs done at [facility]. 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 Normal [facility] Orthopedic Visit Reporton Orthopedic Visit Report Normal [facility] MR/PAT.ANEon 03-04-2025 MR/PAT.ANE Normal [facility] CBC W/Diff, Automatedon - Absolute Lymph 2.77 X10 3/uL Normal 0.83-4.51 [facility] Comment on above: Performed By: #### L 501.9985, L100.0100, L506.1001, L501.9520 ####[facility] [address] [place], [address] Absolute Neut 3.4 X10 3/uL Normal 2.0-7.7 [facility] Comment on above: Performed By: #### L 501.9985, L100.0100, L506.1001, L501.9520 ####[facility] [address] [place], [address] Basophils/100 WBC (Bld) 1.2 % High 0-1 [facility] Comment on above: Performed By: #### L 501.9985, L100.0100, L506.1001, L501.9520 ####[facility] [address] [place], [address] Eosinophils/100 WBC (Bld) 8.6 % High 0-5 [facility] Comment on above: Performed By: #### L 501.9985, L100.0100, L506.1001, L501.9520 ####[facility] [address] [place], [address] Erythrocyte distribution width (RBC) [Ratio] 12.3 % Normal 11.6-14.6 [facility] Comment on above: Performed By: #### L 501.9985, L100.0100, L506.1001, L501.9520 ####[facility] [address] [place], [address] Hematocrit (Bld) [Volume fraction] 39.4 % Normal 37-47 [facility] Comment on above: Performed By: #### L 501.9985, L100.0100, L506.1001, L501.9520 ####[facility] [address] [place], [address] Hemoglobin (Bld) [Mass/Vol] 12.4 g/dL Normal 12.0-15.0 [facility] Comment on above: Performed By: #### L 501.9985, L100.0100, L506.1001, L501.9520 ####[facility] [address] [place], [address] IG% 0.500 Normal 0.0-0.9 [facility] Comment on above: Result Comment: IG% - Immature Granulocytes (promyelocytes, myelocytes andmetamyelocytes) > 1% indicates that a LEFT SHIFT is Present. Performed By: #### L 501.9985, L100.0100, L506.1001, L501.9520 ####[facility] [address] [place], [address] Lymphocytes/100 WBC (Bld) 36.5 % Normal 19-41 [facility] Comment on above: Performed By: #### L 501.9985, L100.0100, L506.1001, L501.9520 ####[facility] [address] [place], [address] MCH (RBC) [Entitic mass] 29.4 pg Normal 27.0-32.0 [facility] Comment on above: Performed By: #### L 501.9985, L100.0100, L506.1001, L501.9520 ####[facility] [address] [place], [address] MCHC (RBC) [Mass/Vol] 31.5 g/dL Low 32-36 [facility] Comment on above: Performed By: #### L 501.9985, L100.0100, L506.1001, L501.9520 ####[facility] [address] [place], [address] MCV (RBC) [Entitic vol] 93.4 fL Normal 81-99 [facility] Comment on above: Performed By: #### L 501.9985, L100.0100, L506.1001, L501.9520 ####[facility] [address] [place], [address] Monocytes/100 WBC (Bld) 8.8 % Normal 0-10 [facility] Comment on above: Performed By: #### L 501.9985, L100.0100, L506.1001, L501.9520 ####[facility] [address] [place], [address] Neutrophils/100 WBC (Bld) 44.4 % Low 47-70 [facility] Comment on above: Performed By: #### L 501.9985, L100.0100, L506.1001, L501.9520 ####[facility] [address] [place], [address] Nucleated RBC (Bld) [#/Vol] 0 10*3/uL Normal 0-5 [facility] Comment on above: Performed By: #### L 501.9985, L100.0100, L506.1001, L501.9520 ####[facility] [address] [place], [address] Platelet mean volume (Bld) [Entitic vol] 10.1 fL Normal 6.2-12.0 [facility] Comment on above: Performed By: #### L 501.9985, L100.0100, L506.1001, L501.9520 ####[facility] [address] [place], [address] Platelets (Bld) [#/Vol] 299 10*3/uL Normal 150-450 [facility] Comment on above: Performed By: #### L 501.9985, L100.0100, L506.1001, L501.9520 ####[facility] [address] [place], [address] RBC (Bld) [#/Vol] 4.22 10*6/uL Normal 4.2-5.4 [facility] Comment on above: Performed By: #### L 501.9985, L100.0100, L506.1001, L501.9520 ####[facility] [address] [place], [address] RDW SD 42.0 fl Normal 35.1-43.9 [facility] Comment on above: Performed By: #### L 501.9985, L100.0100, L506.1001, L501.9520 ####[facility] [address] [place], [address] WBC (Bld) [#/Vol] 7.6 10*3/uL Normal 4.4-11.0 [facility] Comment on above: Performed By: #### L 501.9985, L100.0100, L506.1001, L501.9520 ####[facility] [address] [place], [address] Hemoglobin A1con 02-25-2025 HbA1c (Bld) [Mass fraction] 5.7 % Normal <=5.6 [facility] Comment on above: Result Comment: Norm al < 5.7 % Prediabetic 5.7 - 6.4 % Diabetic >or= 6.5 % Please note range changes. Performed By: #### L 501.9985, L100.0100, L506.1001, L501.9520 ####[facility] [address] [place], [address] Office Visit Reporton 2024 Office Visit Report Normal [facility] Thyroid Stim Hormone (TSH)on 02-25-2025 TSH 0.573 uIU/mL Normal 0.300-4.200 [facility] Comment on above: Performed By: #### L 501.9985, L100.0100, L506.1001, L501.9520 ####[facility] [address] [place], [place], [address] Vitamin D,25 Hydroxyon 02-25 Vitamin D 25-OH 88.7 ng/mL Normal 30-100 [facility] Comment on above: Result Comment: Paty min D StatusDeficiency: <20 ng/mL (50nmol/L)Insufficiency: 20-30 ng/mL (50-75 nmol/L)Sufficiency: 30-100 ng/mL (75-250 nmol/L)Toxicity: >100 ng/mL (>250 nmol/L) Performed By: #### L 501.9985, L100.0100, L506.1001, L501.9520 ####[facility] [address] [place], [place], [address] Spine Lumbar without Contras ton 02-21-2025 Spine Lumbar without Contrast Normal [facility] 6 Minute Walk Teston 025 6 Minute Walk Test Normal [facility] 25(OH)D3 SerPl-mCncon 2024 25-hydroxyvitamin D3 [Mass/Vol] 91.5 ng/mL High 31.0-80.0 [facility] Comment on above: Order Comment: Speci men Type: BLOOD SPECIMEN Ordering Facility: [facility] Address: [address] [place] [address] [place] [address] Performed By: #### 2 4323-8 #### [facility] CLIA [id number] [address] [place] [address] [place] BLOOD TB SCREENon 02-11-2025 M. tuberculosis tuberculin stim IFN-g Ql (Bld) Negative Normal [facility] Comment on above: Order Comment: Pauly magallanes Type: BLOOD SPECIMEN Ordering Facility: [facility] Address: [address] [place] [address] Performed By: #### 1 988-5 #### [facility] CLIA [id number] [address] [place] [address] [place] MITOGEN MINUS NIL >9.98 Normal >=0.50 [facility] Comment on above: Order Comment: Pauly magallanes Type: BLOOD SPECIMEN Ordering Facility: [facility] Address: [address] [place] [address] Performed By: #### 1 988-5 #### [facility] CLIA [id number] [address] [place] [address] OF [place] TB GAMMA INTERPRETATION Infection with M. tuberculosis complex is unlikely. If latent tuberculosis infection is highly suspected, a negative result does not rule out the infection. Specimens from immunocompromised patients and those <5 years of age may show false negative results. In case of a contact investigation, please repeat 8-12 weeks after a known exposure. Normal [facility] Comment on above: Order Comment: Pauly magallanes Type: BLOOD SPECIMEN Ordering Facility: [facility] Address: [address] [place] [address] Performed By: #### 1 988-5 #### [facility] CLIA [id number] [address] [place] [address] TB NIL 0.02 IU/mL Normal <=8.00 [facility] Comment on above: Order Comment: Pauly magallanes Type: BLOOD SPECIMEN Ordering Facility: [facility] Address: [address] [place] [address] Performed By: #### 1 988-5 #### [facility] CLIA [id number] [address] [place] [address] [place] TB1 AG MINUS NIL 0.00 IU/mL Normal <0.35 [facility] Comment on above: Order Comment: Speci men Type: BLOOD SPECIMEN Ordering Facility: [facility] Address: [address] [place] [address] Performed By: #### 1 988-5 #### [facility] CLIA [id number] [address] [place] [address] [place] TB2 AG MINUS NIL 0.00 IU/mL Normal <0.35 [facility] Comment on above: Order Comment: Speci men Type: BLOOD SPECIMEN Ordering Facility: [facility] Address: [address] [place] [address] Performed By: #### 1 988-5 #### [facility] CLIA [id number] [address] [place] [address] [place] CBC W Auto Differential pane l (Bld)on 02-11-2025 Basophils (Bld) [#/Vol] 0.07 10*3/uL Normal <0.11 [facility] Comment on above: Order Comment: Speci men Type: BLOOD SPECIMEN Ordering Facility: [facility] Address: [address] [place] [address] Performed By: #### 2 4323-8 #### [facility] CLIA [id number] [address] [place] [address] [place] Basophils/100 WBC (Bld) 0.9 % Normal [facility] Comment on above: Order Comment: Speci men Type: BLOOD SPECIMEN Ordering Facility: [facility] Address: [address] [place] [address] Performed By: #### 2 4323-8 #### [facility] CLIA [id number] [address] [place] [address] [place] Differential cell count method Nom (Bld) Auto Normal [facility] Comment on above: Order Comment: Speci men Type: BLOOD SPECIMEN Ordering Facility: [facility] Address: [address] [place] [address] Performed By: #### 2 4323-8 #### [facility] CLIA [id number] [address] [place] [address] [place] Eosinophils (Bld) [#/Vol] 0.28 10*3/uL Normal <0.46 [facility] Comment on above: Order Comment: Speci men Type: BLOOD SPECIMEN Ordering Facility: [facility] Address: [address] [place] [address] Performed By: #### 2 4323-8 #### [facility] CLIA [id number] [address] [place] [address] [place] Eosinophils/100 WBC (Bld) 3.7 % Normal [facility] Comment on above: Order Comment: Speci men Type: BLOOD SPECIMEN Ordering Facility: [facility] Address: [address] [place] [address] Performed By: #### 2 4323-8 #### [facility] CLIA [id number] [address] [place] [address] [place] Erythrocyte distribution width (RBC) [Ratio] 12.7 % Normal 11.5-15.0 [facility] Comment on above: Order Comment: Speci men Type: BLOOD SPECIMEN Ordering Facility: [facility] Address: [address] [place] [address] Performed By: #### 2 4323-8 #### [facility] CLIA [id number] [address] [place] [address] [place] Hematocrit (Bld) [Volume fraction] 43.7 % Normal 36.0-46.0 [facility] Comment on above: Order Comment: Speci men Type: BLOOD SPECIMEN Ordering Facility: [facility] Address: [address] [place] [address] Performed By: #### 2 4323-8 #### [facility] CLIA [id number] [address] [place] [address] [place] Hemoglobin (Bld) [Mass/Vol] 13.8 g/dL Normal 11.5-15.5 [facility] Comment on above: Order Comment: Speci men Type: BLOOD SPECIMEN Ordering Facility: [facility] Address: [address] [place] [address] Performed By: #### 2 4323-8 #### [facility] CLIA [id number] [address] [place] [address] [place] Immature granulocytes (Bld) [#/Vol] 0.03 10*3/uL Normal <0.10 [facility] Comment on above: Order Comment: Speci men Type: BLOOD SPECIMEN Ordering Facility: [facility] Address: [address] [place] [address] Performed By: #### 2 4323-8 #### [facility] CLIA [id number] [address] [place] [address] [place] Immature granulocytes/100 WBC (Bld) 0.4 % Normal [facility] Comment on above: Order Comment: Speci men Type: BLOOD SPECIMEN Ordering Facility: [facility] Address: [address] [place] [address] Performed By: #### 2 4323-8 #### [facility] CLIA [id number] [address] [place] [address] [place] Lymphocytes (Bld) [#/Vol] 2.66 10*3/uL Normal 1.00-4.00 [facility] Comment on above: Order Comment: Speci men Type: BLOOD SPECIMEN Ordering Facility: [facility] Address: [address] [place] [address] Performed By: #### 2 4323-8 #### [facility] CLIA [id number] [address] [place] [address] [place] Lymphocytes/100 WBC (Bld) 35.6 % Normal [facility] Comment on above: Order Comment: Speci men Type: BLOOD SPECIMEN Ordering Facility: [facility] Address: [address] [place] [address] Performed By: #### 2 4323-8 #### [facility] CLIA [id number] [address] [place] [address] [place] MCH (RBC) [Entitic mass] 29.4 pg Normal 26.0-34.0 [facility] Comment on above: Order Comment: Speci men Type: BLOOD SPECIMEN Ordering Facility: [facility] Address: [address] [place] [address] Performed By: #### 2 4323-8 #### [facility] CLIA [id number] [address] [place] [address] [place] MCHC (RBC) [Mass/Vol] 31.6 g/dL Normal 30.5-36.0 [facility] Comment on above: Order Comment: Speci men Type: BLOOD SPECIMEN Ordering Facility: [facility] Address: [address] [place] [address] Performed By: #### 2 4323-8 #### [id number] [address] [place] [address] [place] MCV (RBC) [Entitic vol] 93.2 fL Normal 80.0-100.0 [facility] Comment on above: Order Comment: Speci men Type: BLOOD SPECIMEN Ordering Facility: [facility] Address: [address] [place] [address] Performed By: #### 2 4323-8 #### [id number] [address] [place] [address] [place] Monocytes (Bld) [#/Vol] 0.60 10*3/uL Normal <0.87 [facility] Comment on above: Order Comment: Speci men Type: BLOOD SPECIMEN Ordering Facility: [facility] Address: [address] [place] [address] [place] [address] Performed By: #### 2 4323-8 #### [facility] CLIA [id number] [address] [place] [address] [place] Monocytes/100 WBC (Bld) 8.0 % Normal [facility] Comment on above: Order Comment: Speci men Type: BLOOD SPECIMEN Ordering Facility: [facility] Address: [facility] [place] [address] Performed By: #### 2 4323-8 #### [facility] CLIA [id number] [address] [place] [address] [place] Neutrophils (Bld) [#/Vol] 3.83 10*3/uL Normal 1.45-7.50 [facility] Comment on above: Order Comment: Speci men Type: BLOOD SPECIMEN Ordering Facility: [facility] Address: [address] [place] [address] Performed By: #### 2 4323-8 #### [facility] CLIA [id number] [address] [place] [address] [place] Neutrophils/100 WBC (Bld) 51.4 % Normal [facility] Comment on above: Order Comment: Speci men Type: BLOOD SPECIMEN Ordering Facility: [facility] Address: [address] [place] [address] Performed By: #### 2 4323-8 #### [facility] CLIA [id number] [address] [place] [address] [place] Nucleated RBC (Bld) [#/Vol] 10*3/uL Normal <0.01 [facility] Comment on above: Order Comment: Speci men Type: BLOOD SPECIMEN Ordering Facility: [facility] Address: [facility] [place] [address] Performed By: #### 2 4323-8 #### [facility] CLIA [id number] [address] [place] [address] [place] Nucleated RBC/100 WBC (Bld) [Ratio] 0.0 /100 WBC Normal [facility] Comment on above: Order Comment: Speci men Type: BLOOD SPECIMEN Ordering Facility: [facility] Address: [address] [place] [address] Performed By: #### 2 4323-8 #### [facility] CLIA [id number] [address] [place] [address] [place] Platelet mean volume (Bld) [Entitic vol] 10.4 fL Normal 9.0-12.7 [facility] Comment on above: Order Comment: Speci men Type: BLOOD SPECIMEN Ordering Facility: [facility] Address: [address] [place] [address] Performed By: #### 2 4323-8 #### [facility] CLIA [id number] [address] [place] [address] [place] Platelets (Bld) [#/Vol] 252 10*3/uL Normal 150-400 [facility] Comment on above: Order Comment: Speci men Type: BLOOD SPECIMEN Ordering Facility: [facility] Address: [address] [place] [address] Performed By: #### 2 4323-8 #### [facility] CLIA [id number] [address] [place] [address] [place] RBC (Bld) [#/Vol] 4.69 10*6/uL Normal 3.90-5.20 [facility] Comment on above: Order Comment: Speci men Type: BLOOD SPECIMEN Ordering Facility: [facility] Address: [address] [place] [address] Performed By: #### 2 4323-8 #### [facility] CLIA [id number] [address] [place] [address] [place] WBC (Bld) [#/Vol] 7.47 10*3/uL Normal 3.70-11.00 [facility] Comment on above: Order Comment: Speci men Type: BLOOD SPECIMEN Ordering Facility: [facility] Address: [address] [place] [address] Performed By: #### 2 4323-8 #### [facility] CLIA [id number] [address] [place] [address] [place] CRP SerPl-mCncon 02-11-2025 CRP [Mass/Vol] mg/L Normal <0.9 [facility] Comment on above: Order Comment: Speci men Type: BLOOD SPECIMEN Ordering Facility: [facility] Address: [address] [place] [address] Performed By: #### 1 988-5 #### [facility] CLIA [id number] [address] [place] [address] [place] [address] [place] [facility] Comprehensive metabolic 2000 panelon 02-11-2025 Albumin [Mass/Vol] 4.5 g/dL Normal 3.9-4.9 [facility] Comment on above: Order Comment: Speci men Type: BLOOD SPECIMEN Ordering Facility: [facility] Address: [address] [place] [address] Performed By: #### 2 4323-8 #### [facility] CLIA [id number] [address] [place] [address] [place] ALP [Catalytic activity/Vol] 72 U/L Normal 34-123 [facility] Comment on above: Order Comment: Speci men Type: BLOOD SPECIMEN Ordering Facility: [facility] Address: [address] [place] [address] Performed By: #### 2 4323-8 #### [facility] CLIA [id number] [address] [place] [address] [place] ALT [Catalytic activity/Vol] 26 U/L Normal 7-38 [facility] Comment on above: Order Comment: Speci men Type: BLOOD SPECIMEN Ordering Facility: [facility] Address: [address] [place] [address] Performed By: #### 2 4323-8 #### [facility] CLIA [id number] [address] [place] [address] [place] Anion gap [Moles/Vol] 14 mmol/L Normal 8-15 [facility] Comment on above: Order Comment: Speci men Type: BLOOD SPECIMEN Ordering Facility: [facility] Address: [address] [place] [address] Performed By: #### 2 4323-8 #### [facility] CLIA [id number] [address] [place] [address] [place] AST [Catalytic activity/Vol] 24 U/L Normal 13-35 [facility] Comment on above: Order Comment: Speci men Type: BLOOD SPECIMEN Ordering Facility: [facility] Address: [address] [place] [address] Performed By: #### 2 4323-8 #### [facility] CLIA [id number] [address] [place] [address] [place] Bilirubin [Mass/Vol] 0.3 mg/dL Normal 0.2-1.3 [facility] Comment on above: Order Comment: Speci men Type: BLOOD SPECIMEN Ordering Facility: [facility] Address: [address] [place] [address] Performed By: #### 2 4323-8 #### [facility] CLIA [id number] [address] [place] [address] [place] Calcium [Mass/Vol] 9.8 mg/dL Normal 8.5-10.2 [facility] Comment on above: Order Comment: Speci men Type: BLOOD SPECIMEN Ordering Facility: [facility] Address: [address] [place] [address] Performed By: #### 2 4323-8 #### [facility] CLIA [id number] [address] [place] [address] [place] Chloride [Moles/Vol] 99 mmol/L Normal 98-107 [facility] Comment on above: Order Comment: Speci men Type: BLOOD SPECIMEN Ordering Facility: [facility] Address: [address] [place] [address] Performed By: #### 2 4323-8 #### [facility] CLIA [id number] [address] [place] [address] [place] CO2 [Moles/Vol] 26 mmol/L Normal 22-30 [facility] Comment on above: Order Comment: Speci men Type: BLOOD SPECIMEN Ordering Facility: [facility] Address: [address] [place] [address] Performed By: #### 2 4323-8 #### [id number] [address] [place] [address] [place] Creatinine [Mass/Vol] 0.84 mg/dL Normal 0.58-0.96 [facility] Comment on above: Order Comment: Speci men Type: BLOOD SPECIMEN Ordering Facility: [facility] Address: [address] [place] [address] Performed By: #### 2 4323-8 #### [facility] [id number] [address] [place] [address] Creatinine and Glomerular filtration rate.predicted panel (S/P/Bld) 75 mL/min/1.73m??? Normal >=60 [facility] Comment on above: Order Comment: Speci men Type: BLOOD SPECIMEN Ordering Facility: [facility] Address: [address] [place] [address] Result Comment: Mariza mated Glomerular Filtration Rate [...] accurately reflect actual GFR. Performed By: #### 2 4323-8 #### [facility] CLIA [id number] [address] [place] [address] [place] Glucose [Mass/Vol] 86 mg/dL Normal 74-99 [facility] Comment on above: Order Comment: Pauly magallanes Type: BLOOD SPECIMEN Ordering Facility: [facility] Address: [address] [place] [address] Result Comment: The [place] [employer] (ADA) provides guidance for cutoff [...] Standards of Medical Care in Diabetes 2016, [place]. Diabetes Care. 2016.39(Suppl 1). Performed By: #### 2 4323-8 #### [facility] [id number] [address] [place] [address] [place] Potassium [Moles/Vol] 3.6 mmol/L Low 3.7-5.1 [facility] Comment on above: Order Comment: Pauly magallanes Type: BLOOD SPECIMEN Ordering Facility: [facility] Address: [address] [place] [address] Performed By: #### 2 4323-8 #### [facility] [id number] [address] [place] [address] [place] Protein [Mass/Vol] 7.2 g/dL Normal 6.3-8.0 [facility] Comment on above: Order Comment: Pauly magallanes Type: BLOOD SPECIMEN Ordering Facility: [facility] Address: [address] [place], [place] [address] Performed By: #### 2 4323-8 #### [facility] [id number] [address] [place] [address] [place] Sodium [Moles/Vol] 139 mmol/L Normal 136-144 [facility] Comment on above: Order Comment: Speci men Type: BLOOD SPECIMEN Ordering Facility: [facility] Address: [address] [place] [address] Performed By: #### 2 4323-8 #### [facility] CLIA [id number] [address] [place] [address] [place] Urea nitrogen [Mass/Vol] 22 mg/dL High 7-21 [facility] Comment on above: Order Comment: Speci men Type: BLOOD SPECIMEN Ordering Facility: [facility] Address: [address] [place] [address] Performed By: #### 2 4323-8 #### [facility] CLIA [id number] [address] [place] [address] [place] ESR Westergren method (Bld) [Velocity]on 02-11-2025 ESR (Bld) [Velocity] 2 mm/h Normal 0-20 [facility] Comment on above: Order Comment: Speci men Type: BLOOD SPECIMEN Ordering Facility: [facility] Address: [address] [place] [address] Performed By: #### 2 4323-8 #### [facility] CLIA [id number] [address] [place] [address] [place] HBV core Ab Ser Qlon 025 HBV core Ab Ql (S) Negative Normal Negative [facility] Comment on above: Order Comment: Speci men Type: BLOOD SPECIMEN Ordering Facility: [facility] Address: [address] [place] [address] Result Comment: No e vidence of current or past infection with Hepatitis B virus. Should recent infection be suspected, repeat testing may be considered 3-4 weeks after this draw. Performed By: #### 2 4323-8 #### [facility] CLIA [id number] [address] [place], [place] [id number] [place] HBV surface Ab Ql (S)on 02-02 HBV surface Ab Qn (S) <8.00 Normal [facility] Comment on above: Order Comment: Speci men Type: BLOOD SPECIMEN Ordering Facility: [facility] Address: [address] [place] [address] Result Comment: <8 m IU/mL: No serological evidence of immunity to Hepatitis B Virus. >/= 8 to <12 mIU/mL: No serological evidence of immunity to Hepatitis B Virus. >/= 12 mIU/mL: Consistent with serological evidence of immunity to Hepatitis B Virus. Performed By: #### 2 4323-8 #### [facility] CLIA [id number] [address] [place] [address] [place] HBV surface Ab Ser Qlon 02-02 HBV surface Ab Ql (S) Negative Normal [facility] Comment on above: Order Comment: Speci men Type: BLOOD SPECIMEN Ordering Facility: [facility] Address: [address] [place] [address] Result Comment: No s erological evidence of immunity to Hepatitis B Virus. Performed By: #### 2 4323-8 #### [facility] [id number] [address] [place] [address] [place] HBV surface Ag Ser Qlon 02-02 HBV surface Ag Ql (S) Negative Normal Negative [facility] Comment on above: Order Comment: Speci men Type: BLOOD SPECIMEN Ordering Facility: [facility] Address: [address] [place] [address] Performed By: #### 2 4323-8 #### [facility] CLIA [id number] [address] [place] [address] [place] HCV Ab Ser Qlon 02-11-2025 HCV Ab Ql (S) Negative Normal Negative [facility] Comment on above: Order Comment: Speci men Type: BLOOD SPECIMEN Ordering Facility: [facility] Address: [address] [place] [address] Result Comment: The result suggests no evidence of infection with Hepatitis C virus. Should recent infection be suspected, repeat testing may be considered 4-6 weeks after this draw. Performed By: #### 1 988-5 #### [facility] CLIA [id number] [address] [place] [address] [place] [id number] [place] Pulmonary Visit Reporton Pulmonary Visit Report Normal [facility] Basic Metabolic Profile (BMP )on 02-06-2025 BUN/CRE 30.1 RATIO High 10-20 [facility] Comment on above: Performed By: #### L 500.2500 ####[facility] [address] [place], [address] Calcium [Mass/Vol] 10.0 mg/dL Normal 7.6-11.0 [facility] Comment on above: Performed By: #### L 500.2500 ####[facility] [address] [place], [address] Chloride [Moles/Vol] 103 mmol/L Normal 98-108 [facility] Comment on above: Performed By: #### L 500.2500 ####[facility] [address] [place], [address] CO2 [Moles/Vol] 27.2 mmol/L Normal 21.0-32.0 [facility] Comment on above: Performed By: #### L 500.2500 ####[facility] [address] [place], [address] Creatinine [Mass/Vol] 0.94 mg/dL Normal 0.70-1.20 [facility] Comment on above: Performed By: #### L 500.2500 ####[facility] [address] [place], [address] GAP 11 Normal 5-15 [facility] Comment on above: Performed By: #### L 500.2500 ####[facility] [address] [place], [address] GFR/1.73 sq M.predicted among non-blacks MDRD (S/P/Bld) [Vol rate/Area] 65 mL/min/{1.73_m2} Normal >60 [facility] Comment on above: Result Comment: mL/m in/1.73m2 CKD-EPI Creatinine Equation (2020) Performed By: #### L 500.2500 ####[facility] [address] [place], [address] Glucose [Mass/Vol] 103 mg/dL High 70-99 [facility] Comment on above: Performed By: #### L 500.2500 ####[facility] [address] [place], [address] Potassium [Moles/Vol] 4.5 mmol/L Normal 3.3-5.1 [facility] Comment on above: Performed By: #### L 500.2500 ####[facility] [address] [place], [address] Sodium [Moles/Vol] 141 mmol/L Normal 133-145 [facility] Comment on above: Performed By: #### L 500.2500 ####[facility] [address] [place], [address] Urea nitrogen [Mass/Vol] 28 mg/dL High 4-19 [facility] Comment on above: Performed By: #### L 500.2500 ####[facility] [address] [place], [address] OT D/C Summaryon 02-04-2025 OT D/C Summary Normal [facility] Low Dose CT Lung Screeningon 01-30-[address] Lung Screening Normal [facility] L/S Spine Min 4 Viewson 01-03 L/S Spine Min 4 Views Normal [facility] Orthopedic Visit Reporton Orthopedic Visit Report Normal [facility] Renal Artery Duplex Ultrasou ndon 01-24-2025 Renal Artery Duplex Ultrasound Normal [facility] Office Visit Reporton 2024 Office Visit Report Normal [facility] Inital Evaluation (1) - PTon 01-22-2025 Inital Evaluation (1) - PT Normal [facility] Orthopedic Visit Reporton Orthopedic Visit Report Normal [facility] Vitamin D 1,25-Dihydroxyon 0 01-18-2025 VIT D 1,25 DIHY 25.9 pg/mL Normal 24.8-81.5 [facility] Comment on above: Result Comment: Perf ormed at: [facility] [address] [id number] Director: Dereck Buchanan MD, Phone: [phone] Performed By: #### L 0050.0960 ####[facility] [address] [place], [address] Upper Ext Joint Only(Routine )on 01-15-2025 Upper Ext Joint Only(Routine) Normal [facility] Neurology Visit Reporton Neurology Visit Report Normal [facility] Basic Metabolic Profile (BMP )on 01-07-2025 BUN/CRE 21.3 RATIO High 10-20 [facility] Comment on above: Performed By: #### L 500.2500 ####[facility] [address] [place], [address] Calcium [Mass/Vol] 9.9 mg/dL Normal 7.6-11.0 [facility] Comment on above: Performed By: #### L 500.2500 ####[facility] [address] [place], [address] Chloride [Moles/Vol] 103 mmol/L Normal 98-108 [facility] Comment on above: Performed By: #### L 500.2500 ####[facility] [address] [place], [address] CO2 [Moles/Vol] 27.7 mmol/L Normal 21.0-32.0 [facility] Comment on above: Performed By: #### L 500.2500 ####[facility] [address] [place], [address] Creatinine [Mass/Vol] 0.92 mg/dL Normal 0.70-1.20 [facility] Comment on above: Performed By: #### L 500.2500 ####[facility] [address] [place], [address] GAP 11 Normal 5-15 [facility] Comment on above: Performed By: #### L 500.2500 ####[facility] [address] [place], [address] GFR/1.73 sq M.predicted among non-blacks MDRD (S/P/Bld) [Vol rate/Area] 67 mL/min/{1.73_m2} Normal >60 [facility] Comment on above: Result Comment: mL/m in/1.73m2 CKD-EPI Creatinine Equation (2020) Performed By: #### L 500.2500 ####[facility] [address] [place], [address] Glucose [Mass/Vol] 92 mg/dL Normal 70-99 [facility] Comment on above: Performed By: #### L 500.2500 ####[facility] [address] [place], [address] Potassium [Moles/Vol] 4.0 mmol/L Normal 3.3-5.1 [facility] Comment on above: Performed By: #### L 500.2500 ####[facility] [address] [place], [address] Sodium [Moles/Vol] 141 mmol/L Normal 133-145 [facility] Comment on above: Performed By: #### L 500.2500 ####[facility] [address] [place], [address] Urea nitrogen [Mass/Vol] 20 mg/dL High 4-19 [facility] Comment on above: Performed By: #### L 500.2500 ####[facility] [address] [place], [address] OT General Evaluationon 05-0 OT General Evaluation Normal [facility] CRPon 01-01-2025 C-REACTIVE PROT < 3.00 Normal 0.0-3.0 [facility] Comment on above: Performed By: #### L 501.6710, L101.9900 ####[facility] [address] [place], [address] Erythrocyte Sed Rateon 01-01 SED RATE 4 mm/hr Normal 0-30 [facility] Comment on above: Performed By: #### L 501.6710, L101.9900 ####[facility] [address] [place], [address] Basic Metabolic Profile (BMP )on 12-29-2024 BUN/CRE 17.5 RATIO Normal 10-20 [facility] Comment on above: Performed By: #### L 500.2500, L100.0100 ####[facility] [address] [place], [address] Calcium [Mass/Vol] 10.4 mg/dL Normal 7.6-11.0 [facility] Comment on above: Performed By: #### L 500.2500, L100.0100 ####[facility] [address] [place], [address] Chloride [Moles/Vol] 102 mmol/L Normal 98-108 [facility] Comment on above: Performed By: #### L 500.2500, L100.0100 ####[facility] [address] [place], [address] CO2 [Moles/Vol] 28.3 mmol/L Normal 21.0-32.0 [facility] Comment on above: Performed By: #### L 500.2500, L100.0100 ####[facility] [address] [place], [address] Creatinine [Mass/Vol] 1.00 mg/dL Normal 0.70-1.20 [facility] Comment on above: Performed By: #### L 500.2500, L100.0100 ####[facility] [address] [place], [address] ECRCL 41.45 ml/min Low 50-250 [facility] Comment on above: Performed By: #### L 500.2500, L100.0100 ####[facility] [address] [place], [address] GAP 12 Normal 5-15 [facility] Comment on above: Performed By: #### L 500.2500, L100.0100 ####[facility] [address] [place], [address] GFR/1.73 sq M.predicted among non-blacks MDRD (S/P/Bld) [Vol rate/Area] 61 mL/min/{1.73_m2} Normal >60 [facility] Comment on above: Result Comment: mL/m in/1.73m2 CKD-EPI Creatinine Equation (2020) Performed By: #### L 500.2500, L100.0100 ####[facility] [address] [place], [address] Glucose [Mass/Vol] 100 mg/dL High 70-99 [facility] Comment on above: Performed By: #### L 500.2500, L100.0100 ####[facility] [address] [place], [address] Potassium [Moles/Vol] 4.0 mmol/L Normal 3.3-5.1 [facility] Comment on above: Performed By: #### L 500.2500, L100.0100 ####[facility] [address] [place], [address] Sodium [Moles/Vol] 142 mmol/L Normal 133-145 [facility] Comment on above: Performed By: #### L 500.2500, L100.0100 ####[facility] [address] [place], [address] Urea nitrogen [Mass/Vol] 18 mg/dL Normal 4-19 [facility] Comment on above: Performed By: #### L 500.2500, L100.0100 ####[facility] [address] [place], [address] CBC W/Diff, Automatedon 12-04 Absolute Lymph 1.72 X10 3/uL Normal 0.83-4.51 [facility] Comment on above: Performed By: #### L 500.2500, L100.0100 ####[facility] [address] [place], [address] Absolute Neut 3.4 X10 3/uL Normal 2.0-7.7 [facility] Comment on above: Performed By: #### L 500.2500, L100.0100 ####[facility] [address] [place], [address] Basophils/100 WBC (Bld) 1.5 % High 0-1 [facility] Comment on above: Performed By: #### L 500.2500, L100.0100 ####[facility] [address] [place], [address] Eosinophils/100 WBC (Bld) 10.6 % High 0-5 [facility] Comment on above: Performed By: #### L 500.2500, L100.0100 ####[facility] [address] [place], [address] Erythrocyte distribution width (RBC) [Ratio] 13.4 % Normal 11.6-14.6 [facility] Comment on above: Performed By: #### L 500.2500, L100.0100 ####[facility] [address] [place], [address] Hematocrit (Bld) [Volume fraction] 45.2 % Normal 37-47 [facility] Comment on above: Performed By: #### L 500.2500, L100.0100 ####[facility] [address] [place], [address] Hemoglobin (Bld) [Mass/Vol] 14.4 g/dL Normal 12.0-15.0 [facility] Comment on above: Performed By: #### L 500.2500, L100.0100 ####[facility] [address] [place], [address] IG% 0.200 Normal 0.0-0.9 [facility] Comment on above: Result Comment: IG% - Immature Granulocytes (promyelocytes, myelocytes andmetamyelocytes) > 1% indicates that a LEFT SHIFT is Present. Performed By: #### L 500.2500, L100.0100 ####[facility] [address] [place], [address] Lymphocytes/100 WBC (Bld) 26.5 % Normal 19-41 [facility] Comment on above: Performed By: #### L 500.2500, L100.0100 ####[facility] [address] [place], [address] MCH (RBC) [Entitic mass] 29.7 pg Normal 27.0-32.0 [facility] Comment on above: Performed By: #### L 500.2500, L100.0100 ####[facility] [address] [place], [address] MCHC (RBC) [Mass/Vol] 31.9 g/dL Low 32-36 [facility] Comment on above: Performed By: #### L 500.2500, L100.0100 ####[facility] [address] [place], [address] MCV (RBC) [Entitic vol] 93.2 fL Normal 81-99 [facility] Comment on above: Performed By: #### L 500.2500, L100.0100 ####[facility] [address] [place], [address] Monocytes/100 WBC (Bld) 8.8 % Normal 0-10 [facility] Comment on above: Performed By: #### L 500.2500, L100.0100 ####[facility] [address] [place], [address] Neutrophils/100 WBC (Bld) 52.4 % Normal 47-70 [facility] Comment on above: Performed By: #### L 500.2500, L100.0100 ####[facility] [address] [place], [address] Nucleated RBC (Bld) [#/Vol] 0 10*3/uL Normal 0-5 [facility] Comment on above: Performed By: #### L 500.2500, L100.0100 ####[facility] [address] [place], [address] Platelet mean volume (Bld) [Entitic vol] 10.8 fL Normal 6.2-12.0 [facility] Comment on above: Performed By: #### L 500.2500, L100.0100 ####[facility] [address] [place], [address] Platelets (Bld) [#/Vol] 230 10*3/uL Normal 150-450 [facility] Comment on above: Performed By: #### L 500.2500, L100.0100 ####[facility] [address] [place], [address] RBC (Bld) [#/Vol] 4.85 10*6/uL Normal 4.2-5.4 [facility] Comment on above: Performed By: #### L 500.2500, L100.0100 ####[facility] [address] [place], [address] RDW SD 45.3 fl High 35.1-43.9 [facility] Comment on above: Performed By: #### L 500.2500, L100.0100 ####[facility] [address] [place], [address] WBC (Bld) [#/Vol] 6.5 10*3/uL Normal 4.4-11.0 [facility] Comment on above: Performed By: #### L 500.2500, L100.0100 ####[facility] [address] [place], [address] CNOVon 12-29-2024 CNOV Office Visit (UCTR ) LELE PANG ([id number]) 1955 F Date Time Provider Department 12/29/24 1:45 PM JOSEFA SERNA [facility] During your visit today, we recorded the following information about you: Josefa Serna APRN.CLINICAL MASSAGE THERAPIST 12/29/2024 1:50 PM Signed Patient came in [...] Status:Closed by JOSEFA SERNA on 12/29/24 Normal [facility] CTA Head AND Neck W/ Contras ton 12-29-2024 CTA Head AND Neck W/ Contrast Normal [facility] Emergency Department Summary on 12-29-2024 Emergency Department Summary Normal [facility] Orthopedic Visit Reporton Orthopedic Visit Report Normal [facility] Office Visit Reporton 2024 Office Visit Report Normal [facility] Orthopedic Visit Reporton Orthopedic Visit Report Normal [facility] Dexa Bone Density Studyon Dexa Bone Density Study Normal [facility] Spine Lumbar (Routine)on Spine Lumbar (Routine) Normal [facility] Orthopedic Visit Reporton Orthopedic Visit Report Normal [facility] CNOVon 12-05-2024 CNOV Office Visit (RHWSTR ) LELE PANG ([id number]) 1955 F Date Time Provider Department 12/05/24 11:00 AM WINNIE HERNANDEZ WSTR During your visit today, we recorded the following information about you: Pulse Blood pressure Weight Height 61/minute 146/95 57.5 kg 1.473 m Winnie Hernandez PA-C 12/05/2024 9:46 PM Signed Rheumatology CONSULTATION Date of Service: 12/05/2024 Patient: Lele Pang Medical Record: [id number] Primary Care Physician: Forrest Vera MD Last Rheumatology visit: None at [facility] Referring Provider: Daron Zaidi E [address] [facility] [address] Lele Pang is here today at request of Dr. Mark specifically for consultation of my opinion in regards to the chief complaint listed below. Correspondence will be shared today via the [facility] electronic health record or through regular mail, where applicable. History of Present Illness Lele is a 69-year-old female with a history of RA, presenting for evaluation and management. She is currently taking leflunomide. Lele is both RF - 34 (09/26/2023) and CCP positive. 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 Arteaga PAST SURGICAL HISTORY OF [...] daily. am (more content not included)... Normal [facility] Jad 12-05-2024 [facility] Telephone (WSTR) LELE PANG ([id number]) 1955 F Date Time Provider Department 12/05/24 WINNIE HERNANDEZ RHWSTR During your visit today, we recorded the following information about you: Whit Jang MA 12/05/2024 12:05 PM Signed Message left on voicemail at [facility] for past records for this patient to be faxed to this office. Whit Jang MA 12/06/2024 2:49 PM Signed 109 pages of records received via fax from [facility]. Can be found under scanned [...] Reason for Visit: Request Outside Medical Records [0764] Prescriptions as of 12/12/2024 - alendronate (FOSAMAX) [...] Status:Closed by WHIT JANG on 12/06/24 Normal [facility] Discharge Instructionon 11-03 Discharge Instruction Normal [facility] MR/POSTOP.ANEon 11-26-2024 MR/POSTOP.ANE Normal [facility] MR/CKHPRDKR0kg 11-26-2024 MR/POSTOPAN2 Normal [facility] Operative Reporton Operative Report Normal [facility] Orthopedic Visit Reporton Orthopedic Visit Report Normal [facility] Shoulder min 2 Viewson 11-19 Shoulder min 2 Views Normal [facility] Lumbar Spine 2 or 3 Viewson 11-13-2024 Lumbar Spine 2 or 3 Views Normal [facility] Orthopedic Visit Reporton Orthopedic Visit Report Normal [facility] MR/PAT.ANEon 11-12-2024 MR/PAT.ANE Normal [facility] STAR Comprehensive Panelon ANTI-DNA (DS)AB <1 Normal 0-9 [facility] Comment on above: Result Comment: Nega tive <5 Equivocal 5 - 9 Positive >9 Performed By: #### L 505.7010, L101.9900, L500.4100, L500.4050, L4600.0100, L3100.7870, L3100.5440 ####[facility] [address] [place], [place], [id number] ANTISCLERODERM <0.2 Normal 0.0-0.9 [facility] Comment on above: Performed By: #### L 505.7010, L101.9900, L500.4100, L500.4050, L4600.0100, L3100.7870, L3100.5440 ####[facility] [address] [place], [place], [id number] CCP IgG Antibodieson 025 CCP IgG Ab. > 250 High 0-19 [facility] Comment on above: Result Comment: Nega tive <20 Weak positive 20 - 39 Moderate positive 40 - 59 Strong positive >59Performed at: [facility] [address] [place], [place] [id number] Director: Fady Alfaro PhD, Phone: [phone] Performed By: #### L 505.7010, L101.9900, L500.4100, L500.4050, L4600.0100, L3100.7870, L3100.5440 ####[facility] [address] [place], [address] CRP, High Sensitivity [id number] on 10-25-2024 CRP, HIGH SENS 0.36 mg/L Normal 0.00-3.00 [facility] Comment on above: Result Comment: Rela tive Risk for Future Cardiovascular Event Low <1.00 Average 1.00 - 3.00 High >3.00Performed at: [facility]gy[address] [place], [place] [id number] Director: Fady Alfaro PhD, Phone: [phone] Performed By: #### L 505.7010, L101.9900, L500.4100, L500.4050, L4600.0100, L3100.7870, L3100.5440 ####[facility] [address] [place], [address] Neurology Visit Reporton Neurology Visit Report Normal [facility] Comprehensive Metabolic Prof aron 10-23-2024 Albumin [Mass/Vol] 3.8 g/dL Normal 3.2-5.0 [facility] Comment on above: Performed By: #### L 505.7010, L101.9900, L500.4100, L500.4050, L4600.0100, L3100.7870, L3100.5440 ####[facility] [address] [place], [address] Albumin/Globulin [Mass ratio] 1.1 {ratio} Normal 0.9-2.4 [facility] Comment on above: Performed By: #### L 505.7010, L101.9900, L500.4100, L500.4050, L4600.0100, L3100.7870, L3100.5440 ####[facility] [address] [place], [place], [id number] ALK P 71 U/L Normal 45-117 [facility] Comment on above: Performed By: #### L 505.7010, L101.9900, L500.4100, L500.4050, L4600.0100, L3100.7870, L3100.5440 ####[facility] [address] [place], [place], [phone] ALT [Catalytic activity/Vol] 38 U/L Normal 13-56 [facility] Comment on above: Performed By: #### L 505.7010, L101.9900, L500.4100, L500.4050, L4600.0100, L3100.7870, L3100.5440 ####[facility] [address] [place], [address] AST [Catalytic activity/Vol] 20 U/L Normal 15-37 [facility] Comment on above: Performed By: #### L 505.7010, L101.9900, L500.4100, L500.4050, L4600.0100, L3100.7870, L3100.5440 ####[facility] [address] [place], [address] Bilirubin [Mass/Vol] 0.50 mg/dL Normal 0.20-1.00 [facility] Comment on above: Result Comment: For patients on eltrombopag therapy, use of Dimension [place] TBIL is not recommended. Performed By: #### L 505.7010, L101.9900, L500.4100, L500.4050, L4600.0100, L3100.7870, L3100.5440 ####[facility] [address] [place], [address] BUN/CRE 24.9 RATIO High 10-20 [facility] Comment on above: Performed By: #### L 505.7010, L101.9900, L500.4100, L500.4050, L4600.0100, L3100.7870, L3100.5440 ####[facility] [address] [place], [address] CA,Total 9.4 mg/dL Normal 8.5-10.1 [facility] Comment on above: Performed By: #### L 505.7010, L101.9900, L500.4100, L500.4050, L4600.0100, L3100.7870, L3100.5440 ####[facility] [address] [place], [address] Chloride [Moles/Vol] 106 mmol/L Normal 98-107 [facility] Comment on above: Performed By: #### L 505.7010, L101.9900, L500.4100, L500.4050, L4600.0100, L3100.7870, L3100.5440 ####[facility] [address] [place], [address] CO2 [Moles/Vol] 26.0 mmol/L Normal 21.0-32.0 [facility] Comment on above: Performed By: #### L 505.7010, L101.9900, L500.4100, L500.4050, L4600.0100, L3100.7870, L3100.5440 ####[facility] [address] [place], [address] Creatinine [Mass/Vol] 0.92 mg/dL Normal 0.55-1.02 [facility] Comment on above: Result Comment: The validity of the calculated GFR GFRAA in patients over70 years has not been determined. Clinical correlation isessential. Performed By: #### L 505.7010, L101.9900, L500.4100, L500.4050, L4600.0100, L3100.7870, L3100.5440 ####[facility] [address] [place], [address] EST GFR - AA 77 mL/min Normal >60 [facility] Comment on above: Result Comment: Afri can Cymraes GFR Calc Performed By: #### L 505.7010, L101.9900, L500.4100, L500.4050, L4600.0100, L3100.7870, L3100.5440 ####[facility] [address] [place], [address] GAP 8 Normal 5-15 [facility] Comment on above: Performed By: #### L 505.7010, L101.9900, L500.4100, L500.4050, L4600.0100, L3100.7870, L3100.5440 ####[facility] [address] [place], [address] GFR/1.73 sq M.predicted among non-blacks MDRD (S/P/Bld) [Vol rate/Area] 64 mL/min/{1.73_m2} Normal >60 [facility] Comment on above: Result Comment: Non- GFR Calc Performed By: #### L 505.7010, L101.9900, L500.4100, L500.4050, L4600.0100, L3100.7870, L3100.5440 ####[facility] [address] [place], [address] Globulin (S) [Mass/Vol] 3.4 g/dL Normal 2.2-4.2 [facility] Comment on above: Performed By: #### L 505.7010, L101.9900, L500.4100, L500.4050, L4600.0100, L3100.7870, L3100.5440 ####[facility] [address] [place], [address] Glucose [Mass/Vol] 91 mg/dL Normal 74-106 [facility] Comment on above: Performed By: #### L 505.7010, L101.9900, L500.4100, L500.4050, L4600.0100, L3100.7870, L3100.5440 ####[facility] [address] [place], [address] Potassium [Moles/Vol] 3.7 mmol/L Normal 3.5-5.1 [facility] Comment on above: Performed By: #### L 505.7010, L101.9900, L500.4100, L500.4050, L4600.0100, L3100.7870, L3100.5440 ####[facility] [address] [place], [address] Sodium [Moles/Vol] 140 mmol/L Normal 136-145 [facility] Comment on above: Performed By: #### L 505.7010, L101.9900, L500.4100, L500.4050, L4600.0100, L3100.7870, L3100.5440 ####[facility] [address] [place], [address] T PROT 7.2 g/dL Normal 6.4-8.2 [facility] Comment on above: Performed By: #### L 505.7010, L101.9900, L500.4100, L500.4050, L4600.0100, L3100.7870, L3100.5440 ####[facility] [address] [place], [address] Urea nitrogen [Mass/Vol] 23 mg/dL High 7-18 [facility] Comment on above: Performed By: #### L 505.7010, L101.9900, L500.4100, L500.4050, L4600.0100, L3100.7870, L3100.5440 ####[facility] [address] [place], [address] Erythrocyte Sed Rateon 10-23 SED RATE 7 mm/hr Normal 0-30 [facility] Comment on above: Performed By: #### L 505.7010, L101.9900, L500.4100, L500.4050, L4600.0100, L3100.7870, L3100.5440 ####[facility] [address] [place], [place], [address] Lipid Profileon 10-23-2024 Cholesterol [Mass/Vol] 250 mg/dL High 200 [facility] Comment on above: Result Comment: <200 mg/dL Desirable 200-240 mg/dL Borderline >240 mg/dL High Risk Performed By: #### L 505.7010, L101.9900, L500.4100, L500.4050, L4600.0100, L3100.7870, L3100.5440 ####[facility] [address] [place], [place], [address] Cholesterol in HDL [Mass/Vol] 133 mg/dL Normal [facility] Comment on above: Result Comment: The drugs N-Acetylcysteine and Metamizole may falselydepress this assay. Reference Range HDL <40 mg/dL Low HDL Cholesterol HDL >or= 60 mg/dL High HDL Cholesterol Performed By: #### L 505.7010, L101.9900, L500.4100, L500.4050, L4600.0100, L3100.7870, L3100.5440 ####[facility] [address] [place], [place], [address] Cholesterol in LDL [Mass/Vol] 107 mg/dL Normal 0-130 [facility] Comment on above: Performed By: #### L 505.7010, L101.9900, L500.4100, L500.4050, L4600.0100, L3100.7870, L3100.5440 ####[facility] [address] [place], [address] Cholesterol in VLDL [Mass/Vol] 10 mg/dL Normal 5-40 [facility] Comment on above: Performed By: #### L 505.7010, L101.9900, L500.4100, L500.4050, L4600.0100, L3100.7870, L3100.5440 ####[facility] [address] [place], [address] Triglyceride [Mass/Vol] 50 mg/dL Normal [facility] Comment on above: Result Comment: The drugs N-Acetylcysteine and Metamizole may falselydepress this assay.Serum Triglycerides Reference Interval Normal <150 mg/dL Borderline high 150 - 199 mg/dL High 200 - 499 mg/dL Very High > or = 500 mg/dL Performed By: #### L 505.7010, L101.9900, L500.4100, L500.4050, L4600.0100, L3100.7870, L3100.5440 ####[facility] [address] [place], [address] Rheumatoid Factoron 10-23-19 25 RHEUMATOID FAC 27.0 IU/mL High <15 [facility] Comment on above: Performed By: #### L 505.7010, L101.9900, L500.4100, L500.4050, L4600.0100, L3100.7870, L3100.5440 ####[facility] [address] [place], [place], [address] Orthopedic Visit Reporton Orthopedic Visit Report Normal [facility] Office Visit Reporton 2024 Office Visit Report Normal [facility] Neurology Visit Reporton Neurology Visit Report Normal [facility] Vitamin B1, Thiamineon 07-29 VIT B1 THIAMINE 94.5 nmol/L Normal 66.5-200.0 [facility] Comment on above: Order Comment: Test( s) 567976-Cpo. B1, Whole Bloodwas developed and its performance characteristicsdetermined by [employer]. It has not been cleared or approvedby the Food and Drug Administration. Result Comment: Perf ormed at: [facility] [address] [id number] Director: Dereck Buchanan MD, Phone: [phone] Performed By: #### L 506.0250, L501.9520, L3300.8000, L500.4050, L506.1000, L100.0500, L503.0105 ####[facility] [address] [place], [place], [address] CBC-Complete Blood Cnt No Di ffon 07-25-2024 Erythrocyte distribution width (RBC) [Ratio] 13.1 % Normal 11.6-14.6 [facility] Comment on above: Order Comment: DR.BA CARCAMO ORDERED CBC,CMP,FOL,TSH,B12, B1MARK ROBERTS ORDERED B12 VITD Performed By: #### L 506.0250, L501.9520, L3300.8000, L500.4050, L506.1000, L100.0500, L503.0105 ####[facility] [address] [place], [place], [id number] Hematocrit (Bld) [Volume fraction] 38.6 % Normal 37-47 [facility] Comment on above: Order Comment: DR.BA CARCAMO ORDERED CBC,CMP,FOL,TSH,B12, B1MARK ALEJANDRA ORDERED B12 VITD Performed By: #### L 506.0250, L501.9520, L3300.8000, L500.4050, L506.1000, L100.0500, L503.0105 ####[facility] [address] [place], [address] Hemoglobin (Bld) [Mass/Vol] 12.2 g/dL Normal 12.0-15.0 [facility] Comment on above: Order Comment: DR.BA CARCAMO ORDERED CBC,CMP,FOL,TSH,B12, B1MARK ROBERTS ORDERED B12 VITD Performed By: #### L 506.0250, L501.9520, L3300.8000, L500.4050, L506.1000, L100.0500, L503.0105 ####[facility] [address] [place], [address] MCH (RBC) [Entitic mass] 28.6 pg Normal 27.0-32.0 [facility] Comment on above: Order Comment: DR.BA CARCAMO ORDERED CBC,CMP,FOL,TSH,B12, B1MARK ROEBRTS ORDERED B12 VITD Performed By: #### L 506.0250, L501.9520, L3300.8000, L500.4050, L506.1000, L100.0500, L503.0105 ####[facility] [address] [place], [address] MCHC (RBC) [Mass/Vol] 31.6 g/dL Low 32-36 [facility] Comment on above: Order Comment: DR.BA CARCAMO ORDERED CBC,CMP,FOL,TSH,B12, B1MARK ROBERTS ORDERED B12 VITD Performed By: #### L 506.0250, L501.9520, L3300.8000, L500.4050, L506.1000, L100.0500, L503.0105 ####[facility] [address] [place], [address] MCV (RBC) [Entitic vol] 90.6 fL Normal 81-99 [facility] Comment on above: Order Comment: DR.BA CARCAMO ORDERED CBC,CMP,FOL,TSH,B12, B1MARK ROBERTS ORDERED B12 VITD Performed By: #### L 506.0250, L501.9520, L3300.8000, L500.4050, L506.1000, L100.0500, L503.0105 ####[facility] [address] [place], [address] Platelet mean volume (Bld) [Entitic vol] 10.4 fL Normal 6.2-12.0 [facility] Comment on above: Order Comment: DR.BA CARCAMO ORDERED CBC,CMP,FOL,TSH,B12, B1MARK ROBERTS ORDERED B12 VITD Performed By: #### L 506.0250, L501.9520, L3300.8000, L500.4050, L506.1000, L100.0500, L503.0105 ####[facility] [address] [place], [address] Platelets (Bld) [#/Vol] 264 10*3/uL Normal 150-450 [facility] Comment on above: Order Comment: DR.BA CARCAMO ORDERED CBC,CMP,FOL,TSH,B12, B1MARK ROBERTS ORDERED B12 VITD Performed By: #### L 506.0250, L501.9520, L3300.8000, L500.4050, L506.1000, L100.0500, L503.0105 ####[facility] [address] [place], [address] RBC (Bld) [#/Vol] 4.26 10*6/uL Normal 4.2-5.4 [facility] Comment on above: Order Comment: DR.BA CARCAMO ORDERED CBC,CMP,FOL,TSH,B12, B1MARK ROBERTS ORDERED B12 VITD Performed By: #### L 506.0250, L501.9520, L3300.8000, L500.4050, L506.1000, L100.0500, L503.0105 ####[facility] [address] [place], [address] RDW SD 42.9 fl Normal 35.1-43.9 [facility] Comment on above: Order Comment: DR.BA CARCAMO ORDERED CBC,CMP,FOL,TSH,B12, B1MARK ROBERTS ORDERED B12 VITD Performed By: #### L 506.0250, L501.9520, L3300.8000, L500.4050, L506.1000, L100.0500, L503.0105 ####[facility] [address] [place], [address] WBC (Bld) [#/Vol] 5.1 10*3/uL Normal 4.4-11.0 [facility] Comment on above: Order Comment: DR.BA CARCAMO ORDERED CBC,CMP,FOL,TSH,B12, B1MARK ROBERTS ORDERED B12 VITD Performed By: #### L 506.0250, L501.9520, L3300.8000, L500.4050, L506.1000, L100.0500, L503.0105 ####[facility] [address] [place], [address] Comprehensive Metabolic Prof ilon 07-25-2024 Albumin [Mass/Vol] 3.7 g/dL Normal 3.2-5.0 [facility] Comment on above: Order Comment: DR.BA CARCAMO ORDERED CBC,CMP,FOL,TSH,B12, B1MARK ROBERTS ORDERED B12 VITDN Performed By: #### L 506.0250, L501.9520, L3300.8000, L500.4050, L506.1000, L100.0500, L503.0105 ####[facility] [address] [place], [address] Albumin/Globulin [Mass ratio] 1.2 {ratio} Normal 0.9-2.4 [facility] Comment on above: Order Comment: DR.BA CARCAMO ORDERED CBC,CMP,FOL,TSH,B12, B1MARK ROBERTS ORDERED B12 VITDN Performed By: #### L 506.0250, L501.9520, L3300.8000, L500.4050, L506.1000, L100.0500, L503.0105 ####[facility] [address] [place], [address] ALK P 78 U/L Normal 45-117 [facility] Comment on above: Order Comment: DR.BA CARCAMO ORDERED CBC,CMP,FOL,TSH,B12, B1MARK ROBERTS ORDERED B12 VITDN Performed By: #### L 506.0250, L501.9520, L3300.8000, L500.4050, L506.1000, L100.0500, L503.0105 ####[facility] [address] [place], [address] ALT [Catalytic activity/Vol] 23 U/L Normal 13-56 [facility] Comment on above: Order Comment: DR.BA CARCAMO ORDERED CBC,CMP,FOL,TSH,B12, B1MARK ROBERTS ORDERED B12 VITDN Performed By: #### L 506.0250, L501.9520, L3300.8000, L500.4050, L506.1000, L100.0500, L503.0105 ####[facility] [address] [place], [address] AST [Catalytic activity/Vol] 19 U/L Normal 15-37 [facility] Comment on above: Order Comment: DR.BA CARCAMO ORDERED CBC,CMP,FOL,TSH,B12, B1MARK ROBERTS ORDERED B12 VITDN Performed By: #### L 506.0250, L501.9520, L3300.8000, L500.4050, L506.1000, L100.0500, L503.0105 ####[facility] [address] [place], [address] Bilirubin [Mass/Vol] 0.50 mg/dL Normal 0.20-1.00 [facility] Comment on above: Order Comment: DR.BA CARCAMO ORDERED CBC,CMP,FOL,TSH,B12, B1MARK ROBERTS ORDERED B12 VITDN Result Comment: For patients on eltrombopag therapy, use of Dimension [place] TBIL is not recommended. Performed By: #### L 506.0250, [id number], L3300.8000, L500.4050, L506.1000, L100.0500, L503.0105 ####[facility] [address] [place], [address] BUN/CRE 17.9 RATIO Normal 10-20 [facility] Comment on above: Order Comment: DR.BA CARCAMO ORDERED CBC,CMP,FOL,TSH,B12, B1MARK ROBERTS ORDERED B12 VITDN Performed By: #### L 506.0250, [id number], L3300.8000, L500.4050, L506.1000, L100.0500, L503.0105 ####[facility] [address] [place], [address] CA,Total 9.3 mg/dL Normal 8.5-10.1 [facility] Comment on above: Order Comment: DR.BA CARCAMO ORDERED CBC,CMP,FOL,TSH,B12, B1MARK ROBERTS ORDERED B12 VITDN Performed By: #### L 506.0250, [id number], L3300.8000, L500.4050, L506.1000, L100.0500, L503.0105 ####[facility] [address] [place], [address] Chloride [Moles/Vol] 107 mmol/L Normal 98-107 [facility] Comment on above: Order Comment: DR.BA CARCAMO ORDERED CBC,CMP,FOL,TSH,B12, B1MARK ROBERTS ORDERED B12 VITDN Performed By: #### L 506.0250, [id number], L3300.8000, L500.4050, L506.1000, L100.0500, L503.0105 ####[facility] [address] [place], [address] CO2 [Moles/Vol] 26.0 mmol/L Normal 21.0-32.0 [facility] Comment on above: Order Comment: DR.BA CARCAMO ORDERED CBC,CMP,FOL,TSH,B12, B1MARK ROBERTS ORDERED B12 VITDN Performed By: #### L 506.0250, [id number], L3300.8000, L500.4050, L506.1000, L100.0500, L503.0105 ####[facility] [address] [place], [address] Creatinine [Mass/Vol] 0.90 mg/dL Normal 0.55-1.02 [facility] Comment on above: Order Comment: DR.BA CARCAMO ORDERED CBC,CMP,FOL,TSH,B12, B1MARK ROBERTS ORDERED B12 VITDN Result Comment: The validity of the calculated GFR GFRAA in patients over70 years has not been determined. Clinical correlation isessential. Performed By: #### L 506.0250, L501.9520, L3300.8000, L500.4050, L506.1000, L100.0500, L503.0105 ####[facility] [address] [place], [address] EST GFR - AA 80 mL/min Normal >60 [facility] Comment on above: Order Comment: DR.BA CARCAMO ORDERED CBC,CMP,FOL,TSH,B12, B1MARK ROBERTS ORDERED B12 VITDN Result Comment: Afri can Cymraes GFR Calc Performed By: #### L 506.0250, [id number], L3300.8000, L500.4050, L506.1000, L100.0500, L503.0105 ####[facility] [address] [place], [address] GAP 6 Normal 5-15 [facility] Comment on above: Order Comment: DR.BA CARCAMO ORDERED CBC,CMP,FOL,TSH,B12, B1MARK ROBERTS ORDERED B12 VITDN Performed By: #### L 506.0250, [id number], L3300.8000, L500.4050, L506.1000, L100.0500, L503.0105 ####[facility] [address] [place], [address] GFR/1.73 sq M.predicted among non-blacks MDRD (S/P/Bld) [Vol rate/Area] 66 mL/min/{1.73_m2} Normal >60 [facility] Comment on above: Order Comment: DR.BA CARCAMO ORDERED CBC,CMP,FOL,TSH,B12, B1MARK ROBERTS ORDERED B12 VITDN Result Comment: Non- GFR Calc Performed By: #### L 506.0250, [id number], L3300.8000, L500.4050, L506.1000, L100.0500, L503.0105 ####[facility] [address] [place], [address] Globulin (S) [Mass/Vol] 3.2 g/dL Normal 2.2-4.2 [facility] Comment on above: Order Comment: DR.BA CARCAMO ORDERED CBC,CMP,FOL,TSH,B12, B1MARK ROBERTS ORDERED B12 VITDN Performed By: #### L 506.0250, [id number], L3300.8000, L500.4050, L506.1000, L100.0500, L503.0105 ####[facility] [address] [place], [address] Glucose [Mass/Vol] 105 mg/dL Normal 74-106 [facility] Comment on above: Order Comment: DR.BA CARCAMO ORDERED CBC,CMP,FOL,TSH,B12, B1MARK ROBERTS ORDERED B12 VITDN Result Comment: Fast ing Glucose result from 100 to 125 mg/dLsuggests IMPAIRED HOMEOSTASIS per A.D.A. criteria. Performed By: #### L 506.0250, [id number], L3300.8000, L500.4050, L506.1000, L100.0500, L503.0105 ####[facility] [address] [place], [address] Potassium [Moles/Vol] 3.4 mmol/L Low 3.5-5.1 [facility] Comment on above: Order Comment: DR.BA CARCAMO ORDERED CBC,CMP,FOL,TSH,B12, B1MARK ROBERTS ORDERED B12 VITDN Performed By: #### L 506.0250, [id number], L3300.8000, L500.4050, L506.1000, L100.0500, L503.0105 ####[facility] [address] [place], [address] Sodium [Moles/Vol] 139 mmol/L Normal 136-145 [facility] Comment on above: Order Comment: DR.BA CARCAMO ORDERED CBC,CMP,FOL,TSH,B12, B1MARK ROBERTS ORDERED B12 VITDN Performed By: #### L 506.0250, [id number], L3300.8000, L500.4050, L506.1000, L100.0500, L503.0105 ####[facility] [address] [place], [address] T PROT 6.9 g/dL Normal 6.4-8.2 [facility] Comment on above: Order Comment: DR.BA CARCAMO ORDERED CBC,CMP,FOL,TSH,B12, B1MARK ROBERTS ORDERED B12 VITDN Performed By: #### L 506.0250, [id number], L3300.8000, L500.4050, L506.1000, L100.0500, L503.0105 ####[facility] [address] [place], [address] Urea nitrogen [Mass/Vol] 16 mg/dL Normal 7-18 [facility] Comment on above: Order Comment: DR.BA CARCAMO ORDERED CBC,CMP,FOL,TSH,B12, B1MARK ROBERTS ORDERED B12 VITDN Performed By: #### L 506.0250, [id number], L3300.8000, L500.4050, L506.1000, L100.0500, L503.0105 ####[facility] [address] [place], [address] Folates, (Folic Acid)on 07-06 FOLATES > 100.00 High 3.1-55.4 [facility] Comment on above: Order Comment: DR.BA CARCAMO ORDERED CBC,CMP,FOL,TSH,B12, B1MARK ROBERTS ORDERED B12 VITDN Performed By: #### L 506.0250, L501.9520, L3300.8000, L500.4050, L506.1000, L100.0500, L503.0105 ####[facility] [address] [place], [address] Thoracic Spine 3 Viewson Thoracic Spine 3 Views Normal [facility] Thyroid Stim Hormone (TSH)on 07-25-2024 TSH 0.678 uIU/mL Normal 0.358-3.740 [facility] Comment on above: Order Comment: DR.BA CARCAMO ORDERED CBC,CMP,FOL,TSH,B12, B1MARK ROBERTS ORDERED B12 VITDN Performed By: #### L 506.0250, L501.9520, L3300.8000, L500.4050, L506.1000, L100.0500, L503.0105 ####[facility] [address] [place], [address] Vitamin B12on 07-25-2024 Cobalamin (Vitamin B12) [Mass/Vol] pg/mL High 211-911 [facility] Comment on above: Order Comment: DR.BA CARCAMO ORDERED CBC,CMP,FOL,TSH,B12, B1MARK ROBERTS ORDERED B12 VITD Performed By: #### L 506.0250, L501.9520, L3300.8000, L500.4050, L506.1000, L100.0500, L503.0105 ####[facility] [address] [place], [address] Vitamin D,25 Hydroxyon 07-25 Vitamin D 25-OH 103.8 ng/mL Normal [facility] Comment on above: Order Comment: [...] results. Performed By: #### L 506.0250, L501.9520, L3300.8000, L500.4050, L506.1000, L100.0500, L503.0105 ####[facility] [address] [place], [address] XR SHOULDER GENERAL 3V OR MO RE AP/TRUE AP/OTHER RIGHTon 11-25-2022 [facility] XR Shoulder - right 3 Viewso n 11-25-2022 IMPRESSION: No acute osseous abnormality [employer] Installer And Repairer: PSCDania Transcribe Date/Time: Nov 25 2022 4:36P Dictated by : BEV MONTIEL MD This examination was interpreted and the report reviewed and electronically signed by: BEV MONTIEL MD on Nov 25 2022 4:39PM [facility] * * *Final Report* [...] the acromioclavicular joint. DIVISION OF RADIOLOGY Provider, [facility] [place] - 11/25/2022 * * *Final Report* * [...] joint. IMPRESSION IMPRESSION: No acute osseous abnormality [employer] Installer And Repairer: OSMIN Transcribe Date/Time: Nov 25 2022 4:36P Dictated by : BEV MONTIEL MD This examination was interpreted and the report reviewed and electronically signed by: BEV MONTIEL MD on Nov 25 2022 4:39PM EST [facility] Radiology Study observation (narrative) [facility] XR Shoulder - right 3 ViewsO rdered By: [facility] Provider on 11-25-2022 [facility] XR FOOT MINIMUM 3 VIEWS LEFT on [...] 09/23/2022 6:50:07 PM Ordering Provider: ERICK BELL [facility] ([place]) Basophil percentageon 2021 Chloride [Moles/Vol] 107 mmol/L 98-107 [facility] Work Phone: Glucose [Mass/Vol] 109 mg/dL 74-106 [facility] Work Phone: Comment on above: Fasting Glucose resu lt from 100 to 125 mg/dL suggests IMPAIRED HOMEOSTASIS per A.D.A. criteria. Potassium [Moles/Vol] 3.4 mmol/L 3.5-5.1 [facility] Work Phone: Sodium [Moles/Vol] 139 mmol/L 136-145 [facility] Work Phone: Laboratory - Chemistry and C hemistry - challengeon 07-22-2022 CO2 [Moles/Vol] 28.0 mmol/L 21.0-32.0 [facility] Work Phone: Free T4 [Mass/Vol] 0.93 ng/dL 0.76-1.46 [facility] Work Phone: Urea nitrogen/Creatini ne [Mass ratio] 25.9 mg/mg 10-20 [facility] Work Phone: No Panel Informationon 07-22 Estimated GFR (MDRD) Amer 115 mL/min >60 [facility] Work Phone: Comment on above: GFR Calc Estimated GFR (MDRD) Non-Af Amer 95 mL/min >60 [facility] Work Phone: Comment on above: Non- GFR Calc Thyroid Stimulating Hormone (TSH) 1.40 uIU/mL 0.358-3.74 [facility] Work Phone: Serum or plasma calcium kalani urement (mass/volume)on 07-22-2022 Calcium [Mass/Vol] 9.8 mg/dL 8.5-10.1 [facility] Work Phone: Serum or plasma creatinine m easurement (mass/volume)on 07-22-2022 Creatinine [Mass/Vol] 0.66 mg/dL 0.55-1.02 [facility] Work Phone: Comment on above: The validity of the calculated GFR & GFRAA in patients over 70 years has not been determined. Clinical correlation is essential. Serum or plasma urea nitroge n measurement (mass/volume)on 07-22-2022 Urea nitrogen [Mass/Vol] 17 mg/dL 7-18 [facility] Work Phone: Thin prep Papanicolaou smear with manual screeningon 07-22-2022 Thin prep Papanicolaou smear with manual screening 4 5-15 [facility] Work Phone: Absolute lymphocyte counton 06-14-2022 Lymphocytes Auto (Unsp spec) [#/Vol] 3.02 10*3/uL 0.83-4.51 [facility] Work Phone: Basophil percentageon 2021 Basophils/100 WBC (Bld) 0.5 % 0-1 [facility] Work Phone: Eosinophils/100 WBC (Bld) 0.3 % 0-5 [facility] Work Phone: Neutrophils (Bld) [#/Vol] 5.3 10*3/uL 2.0-7.7 [facility] Work Phone: Neutrophils/100 WBC (Bld) 57.8 % 47-70 [facility] Work Phone: WBC (Bld) [#/Vol] 9.1 10*3/uL 4.4-11.0 [facility] Work Phone: Blood erythrocytes count (nu mber/volume)on 06-14-2022 RBC (Bld) [#/Vol] 4.79 10*6/uL 4.2-5.4 [facility] Work Phone: Blood hemoglobin measurement (mass/volume)on 06-14-2022 Hemoglobin (Bld) [Mass/Vol] 14.1 g/dL 12.0-15.0 [facility] Work Phone: Blood lymphocytes/100 leukoc yteson 06-14-2022 Lymphocytes/100 WBC (Bld) 33.1 % 19-41 [facility] Work Phone: Blood monocytes/100 leukocyt eson 06-14-2022 Monocytes/100 WBC (Bld) 7.8 % 0-10 [facility] Work Phone: [phone] Blood platelet mean volumeon 06-14-2022 Platelet mean volume (Bld) [Entitic vol] 11.1 fL 6.2-12.0 [facility] Work Phone: [phone] Determination of erythrocyte mean corpuscular volume (MCV)on 06-14-2022 MCV (RBC) [Entitic vol] 91.9 fL 81-99 [facility] Work Phone: [phone] Hematocrit Auto (Bld) [Volum e fraction]on 06-14-2022 Hematocrit (Bld) [Volume fraction] 44.0 % 37-47 [facility] Work Phone: [phone] Laboratory - Chemistry and C hemistry - challengeon 06-14-2022 ALT [Catalytic activity/Vol] 23 U/L 13-56 [facility] Work Phone: [phone] Laboratory - Hematology and Cell countson 06-14-2022 Erythrocyte distribution width (RBC) [Entitic vol] 43.8 fL 35.1-43.9 [facility] Work Phone: [phone] Erythrocyte distribution width (RBC) [Ratio] 12.9 % 11.6-14.6 [facility] Work Phone: [phone] Immature granulocytes/100 WBC (Bld) 0.500 % 0.0-0.9 [facility] Work Phone: [phone] Comment on above: IG% - Immature Granu locytes (promyelocytes, myelocytes and metamyelocytes) > 1% indicates that a LEFT SHIFT is Present. MCH (RBC) [Entitic mass] 29.4 pg 27.0-32.0 [facility] Work Phone: Nucleated RBC/100 WBC (Bld) [Ratio] 0 % 0-5 [facility] Work Phone: [phone] MCHC Auto (RBC) [Mass/Vol]on 06-14-2022 MCHC (RBC) [Mass/Vol] 32.0 g/dL 32-36 [facility] Work Phone: No Panel Informationon 06-14 Estimated GFR (MDRD) Amer 107 mL/min >60 [facility] Work Phone: Comment on above: GFR Calc Estimated GFR (MDRD) Non-Af Amer 88 mL/min >60 [facility] Work Phone: Comment on above: Non- GFR Calc Platelets bldon 06-14-2022 Platelets (Bld) [#/Vol] 283 10*3/uL 150-450 [facility] Work Phone: Serum or plasma C reactive p rotein measurement (mass/volume)on 06-14-2022 CRP [Mass/Vol] 3.14 mg/L 0.0-3.0 [facility] Work Phone: Comment on above: C-Reactive Protein ( CRP) provides useful information for thediagnosis, therapy and monitoring of inflammatory processesand associated diseases. For the evaluation of Relative Riskfor Cardiovascular Disease, a High Sensitivity CRP (HSCRP)should be ordered. Serum or plasma albumin kalani urement (mass/volume)on 06-14-2022 Albumin [Mass/Vol] 3.5 g/dL 3.2-5.0 [facility] Work Phone: Serum or plasma creatinine m easurement (mass/volume)on 06-14-2022 Creatinine [Mass/Vol] 0.70 mg/dL 0.55-1.02 [facility] Work Phone: Comment on above: The validity of the calculated GFR & GFRAA in patients over 70 years has not been determined. Clinical correlation is essential. Serum or plasma urea nitroge n measurement (mass/volume)on 06-14-2022 Urea nitrogen [Mass/Vol] 15 mg/dL 7-18 [facility] Work Phone: Thin prep Papanicolaou smear with manual screeningon 06-14-2022 Thin prep Papanicolaou smear with manual screening 9 U/L 15-37 [facility] Work Phone: Absolute lymphocyte counton 02-02-2022 Lymphocytes Auto (Unsp spec) [#/Vol] 2.04 10*3/uL 0.83-4.51 [facility] Work Phone: [phone] Basophil percentageon 2021 Basophils/100 WBC (Bld) 1.3 % 0-1 [facility] Work Phone: [phone] Eosinophils/100 WBC (Bld) 8.9 % 0-5 [facility] Work Phone: [phone] Neutrophils (Bld) [#/Vol] 2.7 10*3/uL 2.0-7.7 [facility] Work Phone: [phone] Neutrophils/100 WBC (Bld) 44.2 % 47-70 [facility] Work Phone: [phone] WBC (Bld) [#/Vol] 6.1 10*3/uL 4.4-11.0 [facility] Work Phone: [phone] Blood erythrocytes count (nu mber/volume)on 02-02-2022 RBC (Bld) [#/Vol] 4.95 10*6/uL 4.2-5.4 [facility] Work Phone: [phone] Blood hemoglobin measurement (mass/volume)on 02-02-2022 Hemoglobin (Bld) [Mass/Vol] 14.4 g/dL 12.0-15.0 [facility] Work Phone: [phone] Blood lymphocytes/100 leukoc yteson 02-02-2022 Lymphocytes/100 WBC (Bld) 33.6 % 19-41 [facility] Work Phone: [phone] Blood monocytes/100 leukocyt eson 02-02-2022 Monocytes/100 WBC (Bld) 11.8 % 0-10 [facility] Work Phone: [phone] Blood platelet mean volumeon 02-02-2022 Platelet mean volume (Bld) [Entitic vol] 10.5 fL 6.2-12.0 [facility] Work Phone: Determination of erythrocyte mean corpuscular volume (MCV)on 02-02-2022 MCV (RBC) [Entitic vol] 91.5 fL 81-99 [facility] Work Phone: [phone] Hematocrit Auto (Bld) [Volum e fraction]on 02-02-2022 Hematocrit (Bld) [Volume fraction] 45.3 % 37-47 [facility] Work Phone: [phone] Laboratory - Chemistry and C hemistry - challengeon 02-02-2022 ALT [Catalytic activity/Vol] 27 U/L 13-56 [facility] Work Phone: [phone] Laboratory - Hematology and Cell countson 02-02-2022 Erythrocyte distribution width (RBC) [Entitic vol] 45.3 fL 35.1-43.9 [facility] Work Phone: [phone] Erythrocyte distribution width (RBC) [Ratio] 13.4 % 11.6-14.6 [facility] Work Phone: [phone] Immature granulocytes/100 WBC (Bld) 0.200 % 0.0-0.9 [facility] Work Phone: [phone] Comment on above: IG% - Immature Granu locytes (promyelocytes, myelocytes and metamyelocytes) > 1% indicates that a LEFT SHIFT is Present. MCH (RBC) [Entitic mass] 29.1 pg 27.0-32.0 [facility] Work Phone: [phone] Nucleated RBC/100 WBC (Bld) [Ratio] 0 % 0-5 [facility] Work Phone: [phone] MCHC Auto (RBC) [Mass/Vol]on 02-02-2022 MCHC (RBC) [Mass/Vol] 31.8 g/dL 32-36 [facility] Work Phone: [phone] No Panel Informationon 02-02 Estimated GFR (MDRD) Amer 86 mL/min >60 [facility] Work Phone: [phone] Comment on above: GFR Calc Estimated GFR (MDRD) Non-Af Amer 71 mL/min >60 [facility] Work Phone: [phone] Comment on above: Non- GFR Calc Platelets bldon 02-02-2022 Platelets (Bld) [#/Vol] 254 10*3/uL 150-450 [facility] Work Phone: Serum or plasma C reactive p rotein measurement (mass/volume)on 02-02-2022 CRP [Mass/Vol] mg/L 0.0-3.0 [facility] Work Phone: Comment on above: C-Reactive Protein ( CRP) provides useful information for thediagnosis, therapy and monitoring of inflammatory processesand associated diseases. For the evaluation of Relative Riskfor Cardiovascular Disease, a High Sensitivity CRP (HSCRP)should be ordered. Serum or plasma albumin kalani urement (mass/volume)on 02-02-2022 Albumin [Mass/Vol] 3.8 g/dL 3.2-5.0 [facility] Work Phone: Serum or plasma creatinine m easurement (mass/volume)on 02-02-2022 Creatinine [Mass/Vol] 0.84 mg/dL 0.55-1.02 [facility] Work Phone: Comment on above: The validity of the calculated GFR & GFRAA in patients over 70 years has not been determined. Clinical correlation is essential. Serum or plasma urea nitroge n measurement (mass/volume)on 02-02-2022 Urea nitrogen [Mass/Vol] 23 mg/dL 7-18 [facility] Work Phone: Thin prep Papanicolaou smear with manual screeningon 02-02-2022 Thin prep Papanicolaou smear with manual screening 16 U/L 15-37 [facility] Work Phone: Basophil percentageon 2021 Cholesterol [Mass/Vol] 199 mg/dL <200 [facility] Work Phone: Comment on above: <200 mg/dL Desirable 200-240 mg/dL Borderline >240 mg/dL High Risk Triglyceride [Mass/Vol] 151 mg/dL <199 [facility] Work Phone: Comment on above: The drugs N-Acetylcy steine and Metamizole may falsely depress this assay.Serum Triglycerides Reference Interval Normal <150 mg/dL Borderline high 150 - 199 mg/dL High 200 - 499 mg/dL Very High > or = 500 mg/dL No Panel Informationon 01-26 Vitamin D 25-Hydroxy 75.9 ng/mL [facility] Work Phone: Comment on above: Vitamin D 25(OH) Sta tus Range Deficiency <20 ng/mL (50nmol/L) Insufficiency 20 - 30 ng/mL (50 - 75 nmol/L) Sufficiency 30 - 100 ng/mL (75 - 250 nmol/L) Toxicity >100 ng/mL (>250 nmol/L) Serum or plasma cholesterol in HDL measurement (mass/volume)on 01-26-2022 Cholesterol in HDL [Mass/Vol] 73 mg/dL >40 [facility] Work Phone: Comment on above: The drugs N-Acetylcy steine and Metamizole may falsely depress this assay. Reference Range HDL <40 mg/dL Low HDL Cholesterol HDL >or= 60 mg/dL High HDL Cholesterol Serum or plasma cholesterol in VLDL measurement (mass/volume)on 01-26-2022 Cholesterol in VLDL [Mass/Vol] 30 mg/dL 5-40 [facility] Work Phone: Serum or plasma low density lipoprotein (LDL) cholesterol measurement (mass/volume)on 01-26-2022 Cholesterol in LDL [Mass/Vol] 96 mg/dL 0-130 [facility] Work Phone: Absolute lymphocyte counton 01-18-2022 Lymphocytes Auto (Unsp spec) [#/Vol] 2.54 10*3/uL 0.83-4.51 [facility] Work Phone: [phone] Basophil percentageon 2021 Basophils/100 WBC (Bld) 1.1 % 0-1 [facility] Work Phone: [phone] Bilirubin [Mass/Vol] 0.50 mg/dL 0.20-1.00 [facility] Work Phone: Comment on above: For patients on eltr ombopag therapy, use of Dimension [place] TBIL is not recommended. Chloride [Moles/Vol] 104 mmol/L 98-107 [facility] Work Phone: [phone] Eosinophils/100 WBC (Bld) 8.2 % 0-5 [facility] Work Phone: Glucose [Mass/Vol] 100 mg/dL 74-106 [facility] Work Phone: Comment on above: Fasting Glucose resu lt from 100 to 125 mg/dL suggests IMPAIRED HOMEOSTASIS per A.D.A. criteria. Neutrophils (Bld) [#/Vol] 2.8 10*3/uL 2.0-7.7 [facility] Work Phone: Neutrophils/100 WBC (Bld) 43.1 % 47-70 [facility] Work Phone: Potassium [Moles/Vol] 3.6 mmol/L 3.5-5.1 [facility] Work Phone: Protein [Mass/Vol] 7.6 g/dL 6.4-8.2 [facility] Work Phone: Sodium [Moles/Vol] 139 mmol/L 136-145 [facility] Work Phone: WBC (Bld) [#/Vol] 6.5 10*3/uL 4.4-11.0 [facility] Work Phone: Blood erythrocytes count (nu mber/volume)on 01-18-2022 RBC (Bld) [#/Vol] 4.95 10*6/uL 4.2-5.4 [facility] Work Phone: Blood hemoglobin measurement (mass/volume)on 01-18-2022 Hemoglobin (Bld) [Mass/Vol] 14.4 g/dL 12.0-15.0 [facility] Work Phone: Blood lymphocytes/100 leukoc yteson 01-18-2022 Lymphocytes/100 WBC (Bld) 39.4 % 19-41 [facility] Work Phone: Blood monocytes/100 leukocyt eson 01-18-2022 Monocytes/100 WBC (Bld) 7.9 % 0-10 [facility] [facility] Work Phone: Blood platelet mean volumeon 01-18-2022 Platelet mean volume (Bld) [Entitic vol] 10.1 fL 6.2-12.0 [facility] Work Phone: [phone] Determination of erythrocyte mean corpuscular volume (MCV)on 01-18-2022 MCV (RBC) [Entitic vol] 91.3 fL 81-99 [facility] Work Phone: [phone] Hematocrit Auto (Bld) [Volum e fraction]on 01-18-2022 Hematocrit (Bld) [Volume fraction] 45.2 % 37-47 [facility] Work Phone: [phone] Laboratory - Chemistry and C hemistry - challengeon 01-18-2022 ALP [Catalytic activity/Vol] 108 U/L 45-117 [facility] Work Phone: [phone] ALT [Catalytic activity/Vol] 25 U/L 13-56 [facility] Work Phone: [phone] CO2 [Moles/Vol] 29.0 mmol/L 21.0-32.0 [facility] Work Phone: [phone] Globulin (S) [Mass/Vol] 3.7 g/dL 2.2-4.2 [facility] Work Phone: [phone] Urea nitrogen/Creatini ne [Mass ratio] 23.7 mg/mg 10-20 [facility] Work Phone: [phone] Laboratory - Hematology and Cell countson 01-18-2022 Erythrocyte distribution width (RBC) [Entitic vol] 45.1 fL 35.1-43.9 [facility] Work Phone: [phone] Erythrocyte distribution width (RBC) [Ratio] 13.3 % 11.6-14.6 [facility] Work Phone: [phone] Immature granulocytes/100 WBC (Bld) 0.300 % 0.0-0.9 [facility] Work Phone: [phone] Comment on above: IG% - Immature Granu locytes (promyelocytes, myelocytes and metamyelocytes) > 1% indicates that a LEFT SHIFT is Present. MCH (RBC) [Entitic mass] 29.1 pg 27.0-32.0 [facility] Work Phone: Nucleated RBC/100 WBC (Bld) [Ratio] 0.5 % 0-5 [facility] Work Phone: MCHC Auto (RBC) [Mass/Vol]on 01-18-2022 MCHC (RBC) [Mass/Vol] 31.9 g/dL 32-36 [facility] Work Phone: No Panel Informationon 01-18 Estimated GFR (MDRD) Amer 87 mL/min >60 [facility] Work Phone: Comment on above: GFR Calc Estimated GFR (MDRD) Non-Af Amer 72 mL/min >60 [facility] Work Phone: Comment on above: Non- GFR Calc Platelets bldon 01-18-2022 Platelets (Bld) [#/Vol] 261 10*3/uL 150-450 [facility] Work Phone: Serum or plasma albumin kalani urement (mass/volume)on 01-18-2022 Albumin [Mass/Vol] 3.9 g/dL 3.2-5.0 [facility] Work Phone: Serum or plasma albumin/glob ulin mass ratioon 01-18-2022 Albumin/Globulin [Mass ratio] 1.1 {ratio} 0.9-2.4 [facility] Work Phone: Serum or plasma calcium kalani urement (mass/volume)on 01-18-2022 Calcium [Mass/Vol] 9.5 mg/dL 8.5-10.1 [facility] Work Phone: Serum or plasma creatinine m easurement (mass/volume)on 01-18-2022 Creatinine [Mass/Vol] 0.84 mg/dL 0.55-1.02 [facility] Work Phone: Comment on above: The validity of the calculated GFR & GFRAA in patients over 70 years has not been determined. Clinical correlation is essential. Serum or plasma urea nitroge n measurement (mass/volume)on 01-18-2022 Urea nitrogen [Mass/Vol] 20 mg/dL 7-18 [facility] Work Phone: Thin prep Papanicolaou smear with manual screeningon 01-18-2022 Thin prep Papanicolaou smear with manual screening 15 U/L 15-37 [facility] Work Phone: Thin prep Papanicolaou smear with manual screening 6 5-15 [facility] Work Phone: Thin prep Papanicolaou smear with manual screening 175 U/L 84-246 [facility] Work Phone: Absolute lymphocyte counton 09-28-2021 Lymphocytes Auto (Unsp spec) [#/Vol] 2.19 10*3/uL 0.83-4.51 [facility] Work Phone: Basophil percentageon 2021 Basophils/100 WBC (Bld) 1.3 % 0-1 [facility] Work Phone: Eosinophils/100 WBC (Bld) 12.4 % 0-5 [facility] Work Phone: Neutrophils (Bld) [#/Vol] 2.2 10*3/uL 2.0-7.7 [facility] Work Phone: Neutrophils/100 WBC (Bld) 39.4 % 47-70 [facility] Work Phone: WBC (Bld) [#/Vol] 5.6 10*3/uL 4.4-11.0 [facility] Work Phone: Blood erythrocytes count (nu mber/volume)on 09-28-2021 RBC (Bld) [#/Vol] 4.77 10*6/uL 4.2-5.4 [facility] Work Phone: Blood hemoglobin measurement (mass/volume)on 09-28-2021 Hemoglobin (Bld) [Mass/Vol] 13.7 g/dL 12.0-15.0 [facility] Work Phone: Blood lymphocytes/100 leukoc yteson 09-28-2021 Lymphocytes/100 WBC (Bld) 39.2 % 19-41 [facility] Work Phone: [phone] Blood monocytes/100 leukocyt eson 09-28-2021 Monocytes/100 WBC (Bld) 7.5 % 0-10 [facility] Work Phone: [phone] Blood platelet mean volumeon 09-28-2021 Platelet mean volume (Bld) [Entitic vol] 11.3 fL 6.2-12.0 [facility] Work Phone: [phone] Determination of erythrocyte mean corpuscular volume (MCV)on 09-28-2021 MCV (RBC) [Entitic vol] 91.2 fL 81-99 [facility] Work Phone: [phone] Hematocrit Auto (Bld) [Volum e fraction]on 09-28-2021 Hematocrit (Bld) [Volume fraction] 43.5 % 37-47 [facility] Work Phone: [phone] Laboratory - Chemistry and C hemistry - challengeon 09-28-2021 ALT [Catalytic activity/Vol] 35 U/L 13-56 [facility] Work Phone: [phone] Laboratory - Hematology and Cell countson 09-28-2021 Erythrocyte distribution width (RBC) [Entitic vol] 45.1 fL 35.1-43.9 [facility] Work Phone: [phone] Erythrocyte distribution width (RBC) [Ratio] 13.3 % 11.6-14.6 [facility] Work Phone: [phone] Immature granulocytes/100 WBC (Bld) 0.200 % 0.0-0.9 [facility] Work Phone: [phone] Comment on above: IG% - Immature Granu locytes (promyelocytes, myelocytes and metamyelocytes) > 1% indicates that a LEFT SHIFT is Present. MCH (RBC) [Entitic mass] 28.7 pg 27.0-32.0 [facility] Work Phone: [phone] Nucleated RBC/100 WBC (Bld) [Ratio] 0 % 0-5 [facility] Work Phone: [phone] MCHC Auto (RBC) [Mass/Vol]on 09-28-2021 MCHC (RBC) [Mass/Vol] 31.5 g/dL 32-36 [facility] Work Phone: No Panel Informationon 09-28 Estimated GFR (MDRD) Amer 88 mL/min >60 [facility] Work Phone: Comment on above: GFR Calc Estimated GFR (MDRD) Non-Af Amer 73 mL/min >60 [facility] Work Phone: Comment on above: Non- GFR Calc Platelets bldon 09-28-2021 Platelets (Bld) [#/Vol] 276 10*3/uL 150-450 [facility] Work Phone: Serum or plasma C reactive p rotein measurement (mass/volume)on 09-28-2021 CRP [Mass/Vol] mg/L 0.0-3.0 [facility] Work Phone: Comment on above: C-Reactive Protein ( CRP) provides useful information for thediagnosis, therapy and monitoring of inflammatory processesand associated diseases. For the evaluation of Relative Riskfor Cardiovascular Disease, a High Sensitivity CRP (HSCRP)should be ordered. Serum or plasma albumin kalani urement (mass/volume)on 09-28-2021 Albumin [Mass/Vol] 3.8 g/dL 3.2-5.0 [facility] Work Phone: Serum or plasma creatinine m easurement (mass/volume)on 09-28-2021 Creatinine [Mass/Vol] 0.83 mg/dL 0.55-1.02 [facility] Work Phone: Comment on above: The validity of the calculated GFR & GFRAA in patients over 70 years has not been determined. Clinical correlation is essential. Serum or plasma urea nitroge n measurement (mass/volume)on 09-28-2021 Urea nitrogen [Mass/Vol] 22 mg/dL 7-18 [facility] Work Phone: Thin prep Papanicolaou smear with manual screeningon 09-28-2021 Thin prep Papanicolaou smear with manual screening 26 U/L 15-37 [facility] Work Phone: No Panel Informationon 01-05 Miscellaneous Test See comment [facility] Work Phone: Comment on above: TEST [...] in situ hybridization (FISH) panel (test code 013551) may be considered. Non-Hodgkin lymphoma interphase fluorescence in situ hybridization (FISH) panel (test code 600216). A whole genome SNP microarray-Oncology Reveal (test code 293726) may also be considered to resolve higher resolution imbalances and copy neutral LUIS. Cytogenetic results should be interpreted within the context of a full pathology evaluation which may include flow cytometry, microarray analysis, and molecular genetic testing. Director Review: Comment: Jojo Childers, PhD TESTING PERFORMED AT [facility]. ORIGINAL REPORT ON FILE IN LAB CONTAINS ADDITIONAL TEST SITE INFORMATION. _ ANES Suad 05-21-2019 ANES POST HNO ID: [id number] Author: Rudolph Goel Service: Anesthesiology Author Type: Anesthesiologist Type: Anesthesia PostOp Filed: 05/21/2019 6:03 PM Note Text: POST ANESTHESIA EVALUATION NOTE SERVICE DATE: 05/21/2019 SERVICE TIME: 1802 : 1955 Vitals: 05/21/19 145 Temp: 37 ?C (98.6 ?F) 05/21/19 145 BP: 139/77 09/17/19 1456 Pulse: 63 05/21/19 1456 Resp: 16 [...] 21, 2019 TIME: 6:03 PM PAGER/CONTACT #: [facility] ANES PREOPon 05-21-2019 ANES PREOP HNO ID: [id number] Author: Rudolph Goel Service: Anesthesiology Author Type: Anesthesiologist Type: Anesthesia PreOp Filed: 05/21/2019 4:03 PM Note Text: ANESTHESIOLOGY DAY OF SURGERY NOTE SERVICE DATE: 05/21/2019 SERVICE TIME: 3 : 1955 Procedure(s) (LRB): LAMINECTOMY DECOMPRESSION FACETECTOMY [...] With Chronic Bronchitis (Hcc) Former Smoker Neuropathy ([facility]) History of Etoh Abuse Anxiety and Depression Lumbosacral Spondylosis Without Myelopathy Spinal Stenosis, Lumbar Region, Without Neurogenic Claudication Lumbosacral Radiculitis History reviewed. No pertinent past medical history. PAST SURGICAL HISTORY Procedure Laterality Date - CARPAL TUNNEL Bilateral - HYSTERECTOMY HX - LUMBAR SPINE FUSION COMBINED 02/2017 L4-S1 [facility] Dr. Arteaga - PAST SURGICAL HISTORY OF [...] D5W 200 mL (VANCOCIN) 1 g INTRAVENOUS Photograph Retoucher to OR Delmar Khan 200 mL/hr at [...] May 21, 2019 TIME: 4:03 PM CSN: [id number] [facility] NURSING PROGon 05-21-2019 NURSING PROG HNO ID: [id number] Author: Beryl MullinsRn) JOSE RAMON Velázquez Service: ? Author Type: Registered Nurse Type: Nursing Progress Note Filed: 05/21/2019 7:30 PM Note Text: 1901: Pt arrived to Phase II awake, denies need for pain meds at this time. Surgical site to lower SHUN with glue. 1909: Tolerating hussein silvina and crackers. 1914: Family at bedside 1919: Ambulated with steady gait. 1924: IV removed. 1929 D/C paperwork reviewed. [facility] NURSING PROG HNO ID: [id number] Author: Jigna MullinsRn) JOSE RAMON Martinez Service: [...] note was completed by: Jigna Martinez RN [facility] OPERATIVE NOon 05-21-2019 OPERATIVE NO HNO ID: [id number] Author: Delmar Khan Service: Neurosurgery Author Type: Physician Type: Operative Report Filed: 05/22/2019 12:18 PM Note Text: OPERATIVE/PROCEDURE REPORT LOG ID: [id number] SURGERY/PROCEDURE DATE: 05/21/2019 INCISION/PROCEDURE START TIME: 5:02 PM INCISION CLOSE/PROCEDURE END TIME: 5:45 PM SURGEON(S)/PROCEDURALIST(S) AND ORAL SURGEON(S): Surgeon(s) and Role: * Delmar Khan - Primary Physician Director Of Instrumental Music: Mando Gudino (Idania) Javi SURGERY/PROCEDURE(S): Left L4/5 foraminotomy ANESTHESIA: General [...] 6 cm length x 26 mm diameter TNC tubular? retractor, which was secured to the [...] 22, 2019 TIME: 12:16 PM PAGER/CONTACT #: [facility] PT EDon 05-21-2019 PT ED HNO ID: [id number] Author: Beryl (Rn) JOSE RAMON Velázquez Service: ? Author Type: Registered Nurse Type: Patient Education Filed: 05/21/2019 7:38 PM Note Text: PATIENT EDUCATION TOPIC: PROCEDURE / SURGERY: Post-op Teaching: Symptom Management and Wound Care PATIENT NAME: Lele aPng PATIENT LOCATION: [facility] SURG OR POOL/[facility] SURG [...] None Electronically Signed By: Beryl Velázquez RN [facility] XR LUMBAR SPECIFY 1Von 05-21 XR LUMBAR [...] the report reviewed and electronically signed by: RANDY BUI MD on May 21 2019 6:57PM EST [id number] [facility] NURSING PROGon 05-07-2019 NURSING PROG HNO ID: [id number] Author: Donita Mejias) JOSE RAMON Goncalves Service: ? Author Type: [...] Goncalves RN May 07, 2019 9:49 AM [facility] Confirm Blood Typeon 019 ABO/RH(D) Positive [facility] HOSPon 05-03-2019 HOSP Patient:Karine Pang MRN: Height:4' [...] 44.8 % 05/03/2019 46.0 36.0 Progress Notes ([facility]): Josi Mcfadden 05/14/2019 11:38 AM Signed NI [...] to discuss it. Number to return call [phone] Okay to leave a message ? Yes Thank you calling [facility]. You will receive a return call within [...] 05/14/2019 4:09 PM Signed NEUROSURGERY CARE COORDINATION [facility] PRE-OP EDUCATION VISIT ? Met with patient Lele Pang for pre-op education. Reviewed education materials verbally with patient, including pre-operative skin preparation, wound care, post-operative pain management. ? Provided the following education materials to patient: [facility] Pre-/Post-Op Instruction packet, NPO/Skin Prep Instructions, Map of [facility] 1st Floor, Nearby Accommodations list, Pain Management After Spine Surgery packet, Preparing for Post-Acute Care Instructions (if applicable): Yes. ? Discussed recommendation for every [facility] patient over the age of 18 to complete Healthcare POA forms prior to surgery. Provided forms to patient: No. Patient completed Healthcare POA in office and forms were scanned to patients record: No. ? Reviewed with patient to report to Pre/Post op services day of surgery: Yes. ? Reviewed with patient [facility] Surgery Pre-Op will call patient after 2 pm the day before to get surgery report time for day of surgery. Provided Pre-Op director of front office phone number of [phone] for any questions: Yes. ? Patient made [...] call: 11:25 Number to return call to: [phone] Time Patient is available for return call: anytime Ok to leave a message?: y Nature of call : Patient called, asking for gas voucher form she gave to nurse during Monday's visit, emailed to patient at [employer] Erika Kennedy RN, RN 05/01/2019 9:35 AM Signed NEUROSURGERY CARE COORDINATION [facility] QUICK NOTE ? Patient identified by name and date of : Yes ? Spoke to patient ? Reason for call: Gas voucher ? Additional Notes: Patient advised gas voucher received, will email back once signed. No other questions at this time. JOSE RAMON Scott 05/01/2019 11:55 AM Signed Form signed and emailed back to patient at [employer] Laney Caldwell Medse May 01, 2019 11:55 AM Normal [facility] Type and SCR (30D)on 019 ABO/RH(D) Positive Normal [facility] Vital Signs Date Time Vital Sign Value Performing Clinician Facility 03-06-2025 13:07-0400 Body mass index (BMI) [Ratio] 27.21 kg/m2 Winnie David PA-C Work Phone: [facility] 03-06-2025 13:07-0400 Body weight 59.06 kg Winnie David PA-C Work Phone: [facility] 03-06-2025 13:07-0400 Diastolic blood pressure 86 mm[Hg] Winnie David PA-C Work Phone: [facility] 03-06-2025 13:07-0400 Heart rate 77 /min Winnie David PA-C Work Phone: [facility] 03-06-2025 13:07-0400 Respiratory rate 17 /min Winnie David PA-C Work Phone: [facility] 03-06-2025 13:07-0400 SaO2% (BldA) [Mass fraction] 98 % Winnie David PA-C Work Phone: [facility] 03-06-2025 13:07-0400 Systolic blood pressure 143 mm[Hg] Winnie David PA-C Work Phone: [facility] 12-05-2024 11:14-0400 Body height 147.3 cm Winnie David PA-C Work Phone: [facility] 12-05-2024 11:14-0400 Body mass index (BMI) [Ratio] 26.5 kg/m2 Winnie David PA-C Work Phone: [facility] 12-05-2024 11:14-0400 Body weight 57.52 kg Winnie David PA-C Work Phone: [facility] 12-05-2024 11:14-0400 Diastolic blood pressure 95 mm[Hg] Winnie David PA-C Work Phone: [facility] 12-05-2024 11:14-0400 Heart rate 61 /min Winnie David PA-C Work Phone: [facility] 12-05-2024 11:14-0400 SaO2% (BldA) [Mass fraction] 98 % Winnie David PA-C Work Phone: [facility] 12-05-2024 11:14-0400 Systolic blood pressure 146 mm[Hg] Winnie David PA-C Work Phone: [facility] 11-25-2022 16:08-0400 Body temperature 97.11 [degF] Josefa Serna APRN.CLINICAL MASSAGE THERAPIST Work Phone: [facility] 11-25-2022 16:08-0400 Body weight 67.04 kg Josefa Serna APRN.CLINICAL MASSAGE THERAPIST Work Phone: [facility] 11-25-2022 16:08-0400 Diastolic blood pressure 94 mm[Hg] Josefa Serna APRN.CLINICAL MASSAGE THERAPIST Work Phone: [facility] 11-25-2022 16:08-0400 Heart rate 81 /min Josefa Serna APRN.CLINICAL MASSAGE THERAPIST Work Phone: [facility] 11-25-2022 16:08-0400 Respiratory rate 18 /min Josefa Serna APRN.CLINICAL MASSAGE THERAPIST Work Phone: [facility] 11-25-2022 16:08-0400 SaO2% (BldA) [Mass fraction] 98 % Josefa Serna APRN.CLINICAL MASSAGE THERAPIST Work Phone: [facility] 11-25-2022 16:08-0400 Systolic blood pressure 146 mm[Hg] Josefa Serna APRN.CLINICAL MASSAGE THERAPIST Work Phone: [facility] 11-08-2022 14:58-0500 Body temperature 97.9 [degF] Lizette Hayward APRN.CLINICAL MASSAGE THERAPIST Work Phone: [facility] 11-08-2022 14:58-0500 Body weight 64.41 kg Lizette Hayward APRN.CLINICAL MASSAGE THERAPIST Work Phone: [facility] 11-08-2022 14:58-0500 Diastolic blood pressure 74 mm[Hg] Lizetet Praisler-Wood [employer] CAR[employer] AGENT.CLINICAL MASSAGE THERAPIST Work Phone: [facility] 11-08-2022 14:58-0500 Heart rate 68 /min Lizette Praisler-Wood [employer] CARGO AGENT.CLINICAL MASSAGE THERAPIST Work Phone: [facility] 11-08-2022 14:58-0500 Respiratory rate 16 /min Lizette Praisler-Wood [employer] CARGO AGENT.CLINICAL MASSAGE THERAPIST Work Phone: [facility] 11-08-2022 14:58-0500 SaO2% (BldA) [Mass fraction] 98 % Lizette Praisler-Wood AIR CARGO AGENT.CLINICAL MASSAGE THERAPIST Work Phone: [facility] 11-08-2022 14:58-0500 Systolic blood pressure 120 mm[Hg] Lizette Praisler-Wood AIR CARGO AGENT.CLINICAL MASSAGE THERAPIST Work Phone: [facility] 09-23-2022 18:52-0500 Diastolic Blood Pressure Non-Invasive 86 1 CLAUDIO SMITH MD [facility] 09-23-2022 18:52-0500 Heart rate 80 /min CLAUDIO SMITH MD [facility] 09-23-2022 18:52-0500 Respiratory rate 16 /min CLAUDIO SMITH MD [facility] 09-23-2022 18:52-0500 Systolic Blood Pressure Non-Invasive 119 1 CLAUDIO SMITH MD [facility] 09-23-2022 17:35-0500 Body height 150 cm CLAUDIO SMITH MD [facility] 09-23-2022 17:35-0500 Body temperature 99.5 [degF] CLAUDIO SMITH MD [facility] 09-23-2022 17:35-0500 Body weight 65.9 kg CLAUDIO SMITH MD [facility] 09-23-2022 17:35-0500 Diastolic Blood Pressure Non-Invasive 86 1 CLAUDIO SMITH MD [facility] 09-23-2022 17:35-0500 Heart rate 98 /min CLAUDIO SMITH MD [facility] 09-23-2022 17:35-0500 Respiratory rate 20 /min CLAUDIO SMITH MD [facility] 09-23-2022 17:35-0500 Systolic Blood Pressure Non-Invasive 141 1 CLAUDIO SMITH MD [facility] 07-22-2022 10:58-0500 Body temperature 86.2 [degF] Dr. Forrest Vera Work Phone: [facility] Work Phone: 07-22-2022 10:58-0500 Body weight 62.[address] Forrest Vera Work Phone: [facility] Work Phone: 07-22-2022 10:58-0500 Diastolic blood pressure 86 mm[Hg] Dr. Forrest Vera Work Phone: [facility] Work Phone: 07-22-2022 10:58-0500 Heart rate 64 /min Dr. Forrest Vera Work Phone: [facility] Work Phone: 07-22-2022 10:58-0500 Respiratory rate 18 /min Dr. Forrest Vera Work Phone: [facility] Work Phone: 07-22-2022 10:58-0500 SaO2% (BldA) [Mass fraction] 98 % Dr. Forrest Vera Work Phone: [facility] Work Phone: 07-22-2022 10:58-0500 Systolic blood pressure 138 mm[Hg] Dr. Forrest Vera Work Phone: [facility] Work Phone: 04-12-2022 11:10-0400 Body height 149.[address] Forrest Vera Work Phone: [facility] Work Phone: 04-12-2022 11:10-0400 Body mass index (BMI) [Ratio] 26.6 kg/m2 Dr. Forrest Vera Work Phone: [facility] Work Phone: 04-12-2022 11:10-0400 Body temperature 97 [degF] Dr. Forrest Vera Work Phone: [facility] Work Phone: 04-12-2022 11:10-0400 Body weight 59.[address] Forrest Vera Work Phone: [facility] Work Phone: 04-12-2022 11:10-0400 Diastolic blood pressure 90 mm[Hg] Dr. Forrest Vera Work Phone: [facility] Work Phone: 04-12-2022 11:10-0400 Heart rate 84 /min Dr. Forrest Vera Work Phone: [facility] Work Phone: 04-12-2022 11:10-0400 Respiratory rate 16 /min Dr. Forrest Vera Work Phone: [facility] Work Phone: 04-12-2022 11:10-0400 SaO2% (BldA) [Mass fraction] 97 % Dr. Forrest Vera Work Phone: [facility] Work Phone: 04-12-2022 11:10-0400 Systolic blood pressure 146 mm[Hg] Dr. Forrest Vera Work Phone: [facility] Work Phone: 02-17-2022 13:53-0400 Body height 149.[address] Forrest Vera Work Phone: [facility] Work Phone: 02-14-2022 12:49-0400 Body mass index (BMI) [Ratio] 27.4 kg/m2 Dr. Forrest Vera Work Phone: [facility] Work Phone: 02-14-2022 12:49-0400 Body temperature 97 [degF] Dr. Forrest Vera Work Phone: [facility] Work Phone: 02-14-2022 12:49-0400 Body weight 61.[address] Forrest Vera Work Phone: [facility] Work Phone: 02-14-2022 12:49-0400 Diastolic blood pressure 84 mm[Hg] Dr. Forrest Vera Work Phone: [facility] Work Phone: 02-14-2022 12:49-0400 Heart rate 80 /min Dr. Forrest Vera Work Phone: [facility] Work Phone: 02-14-2022 12:49-0400 Respiratory rate 16 /min Dr. Forrest Vera Work Phone: [facility] Work Phone: 02-14-2022 12:49-0400 SaO2% (BldA) [Mass fraction] 96 % Dr. Forrest Vera Work Phone: [facility] Work Phone: 02-14-2022 12:49-0400 Systolic blood pressure 130 mm[Hg] Dr. Forrest Vera Work Phone: [facility] Work Phone: 01-26-2022 14:57-0400 Body mass index (BMI) [Ratio] 28.1 kg/m2 Dr. Forrest Vera Work Phone: [facility] Work Phone: 01-26-2022 14:57-0400 Body temperature 97.2 [degF] Dr. Forrest Vera Work Phone: [facility] Work Phone: 01-26-2022 14:57-0400 Body weight 63.[address] Forrest Vera Work Phone: [facility] Work Phone: 01-26-2022 14:57-0400 Diastolic blood pressure 72 mm[Hg] Dr. Forrest Vera Work Phone: [facility] Work Phone: 01-26-2022 14:57-0400 Heart rate 75 /min Dr. Forrest Vera Work Phone: [facility] Work Phone: 01-26-2022 14:57-0400 Respiratory rate 16 /min Dr. Forrest Vera Work Phone: [facility] Work Phone: 01-26-2022 14:57-0400 SaO2% (BldA) [Mass fraction] 95 % Dr. Forrest Vera Work Phone: [facility] Work Phone: 01-26-2022 14:57-0400 Systolic blood pressure 132 mm[Hg] Dr. Forrest Vera Work Phone: [facility] Work Phone: 01-26-2022 14:57-0400 Body height 149.[address] Forrest Vera Work Phone: [facility] Work Phone: 01-26-2022 14:57-0400 Body mass index (BMI) [Ratio] 28.1 kg/m2 Dr. Forrest Vera Work Phone: [facility] Work Phone: 01-26-2022 14:57-0400 Body temperature 97.2 [degF] Dr. Forrest Vera Work Phone: [facility] Work Phone: 01-26-2022 14:57-0400 Body weight 63.[address] Forrest Vera Work Phone: [facility] Work Phone: 01-26-2022 14:57-0400 Diastolic blood pressure 72 mm[Hg] Dr. Forrest Vera Work Phone: [facility] Work Phone: 01-26-2022 14:57-0400 Heart rate 75 /min Dr. Forrest Vera Work Phone: [facility] Work Phone: 01-26-2022 14:57-0400 Respiratory rate 16 /min Dr. Forrest Vera Work Phone: [facility] Work Phone: 01-26-2022 14:57-0400 SaO2% (BldA) [Mass fraction] 95 % Dr. Forrest Vera Work Phone: [facility] Work Phone: 01-26-2022 14:57-0400 Systolic blood pressure 132 mm[Hg] Dr. Forrest Vera Work Phone: [facility] Work Phone: 01-25-2022 14:31-0400 Body mass index (BMI) [Ratio] 27.7 kg/m2 Dr. Forrest Vera Work Phone: [facility] Work Phone: 01-25-2022 14:31-0400 Body temperature 98.3 [degF] Dr. Forrest Vera Work Phone: [facility] Work Phone: 01-25-2022 14:31-0400 Body weight 62.[address] Forrest Vera Work Phone: [facility] Work Phone: 01-25-2022 14:31-0400 Diastolic blood pressure 85 mm[Hg] Dr. Forrest Vera Work Phone: [facility] Work Phone: 01-25-2022 14:31-0400 Heart rate 63 /min Dr. Forrest Vera Work Phone: [facility] Work Phone: 01-25-2022 14:31-0400 Respiratory rate 15 /min Dr. Forrest Vera Work Phone: [facility] Work Phone: 01-25-2022 14:31-0400 SaO2% (BldA) [Mass fraction] 95 % Dr. Forrest Vera Work Phone: [facility] Work Phone: 01-25-2022 14:31-0400 Systolic blood pressure 135 mm[Hg] Dr. Forrest Vera Work Phone: [facility] Work Phone: 01-25-2022 14:31-0400 Body height 149.[address] Forrest Vera Work Phone: [facility] Work Phone: 01-25-2022 14:31-0400 Body mass index (BMI) [Ratio] 27.7 kg/m2 Dr. Forrest Vera Work Phone: [facility] Work Phone: 01-25-2022 14:31-0400 Body temperature 98.3 [degF] Dr. Forrest Vera Work Phone: [facility] Work Phone: 01-25-2022 14:31-0400 Body weight 62.[address] Forrest Vera Work Phone: [facility] Work Phone: 01-25-2022 14:31-0400 Diastolic blood pressure 85 mm[Hg] Dr. Forrest Vera Work Phone: [facility] Work Phone: 01-25-2022 14:31-0400 Heart rate 63 /min Dr. Forrest Vera Work Phone: [facility] Work Phone: 01-25-2022 14:31-0400 Respiratory rate 15 /min Dr. Forrest Vera Work Phone: [facility] Work Phone: 01-25-2022 14:31-0400 SaO2% (BldA) [Mass fraction] 95 % Dr. Forrest Vera Work Phone: [facility] Work Phone: 01-25-2022 14:31-0400 Systolic blood pressure 135 mm[Hg] Dr. Forrest Vera Work Phone: [facility] Work Phone: 12-06-2021 14:15-0400 Body mass index (BMI) [Ratio] 28 kg/m2 Dr. Forrest Vera Work Phone: [facility] Work Phone: 12-06-2021 14:15-0400 Body temperature 96.4 [degF] Dr. Forrest Vera Work Phone: [facility] Work Phone: 12-06-2021 14:15-0400 Body weight 63.[address] Forrest Vera Work Phone: [facility] Work Phone: 12-06-2021 14:15-0400 Diastolic blood pressure 90 mm[Hg] Dr. Forrest Vera Work Phone: [facility] Work Phone: 12-06-2021 14:15-0400 Heart rate 86 /min Dr. Forrest Vera Work Phone: [facility] Work Phone: 12-06-2021 14:15-0400 Respiratory rate 16 /min Dr. Forrest Vera Work Phone: [facility] Work Phone: 12-06-2021 14:15-0400 SaO2% (BldA) [Mass fraction] 98 % Dr. Forrest Vera Work Phone: [facility] Work Phone: 12-06-2021 14:15-0400 Systolic blood pressure 146 mm[Hg] Dr. Forrest Vera Work Phone: [facility] Work Phone: 12-06-2021 14:15-0400 Body height 149.[address] Forrest Vera Work Phone: [facility] Work Phone: 12-06-2021 14:15-0400 Body mass index (BMI) [Ratio] 28 kg/m2 Dr. Forrest Vera Work Phone: [facility] Work Phone: 12-06-2021 14:15-0400 Body temperature 96.4 [degF] Dr. Forrest Vera Work Phone: [facility] Work Phone: 12-06-2021 14:15-0400 Body weight 63.[address] Forrest Vera Work Phone: [facility] Work Phone: 12-06-2021 14:15-0400 Diastolic blood pressure 90 mm[Hg] Dr. Forrest Vera Work Phone: [facility] Work Phone: 12-06-2021 14:15-0400 Heart rate 86 /min Dr. Forrest Vera Work Phone: [facility] Work Phone: 12-06-2021 14:15-0400 Respiratory rate 16 /min Dr. Forrest Vera Work Phone: [facility] Work Phone: 12-06-2021 14:15-0400 SaO2% (BldA) [Mass fraction] 98 % Dr. Forrest Vera Work Phone: [facility] Work Phone: 12-06-2021 14:15-0400 Systolic blood pressure 146 mm[Hg] Dr. Forrest Vera Work Phone: [facility] Work Phone: 11-26-2021 09:35-0400 Body mass index (BMI) [Ratio] 28.1 kg/m2 Dr. Forrest Vera Work Phone: [facility] Work Phone: 11-26-2021 09:35-0400 Body temperature 97.1 [degF] Dr. Forrest Vera Work Phone: [facility] Work Phone: 11-26-2021 09:35-0400 Body weight 63.[address] Forrest Vera Work Phone: [facility] Work Phone: 11-26-2021 09:35-0400 Diastolic blood pressure 66 mm[Hg] Dr. Forrest Vera Work Phone: [facility] Work Phone: 11-26-2021 09:35-0400 Heart rate 66 /min Dr. Forrest Vera Work Phone: [facility] Work Phone: 11-26-2021 09:35-0400 Respiratory rate 16 /min Dr. Forrest Vera Work Phone: [facility] Work Phone: 11-26-2021 09:35-0400 SaO2% (BldA) [Mass fraction] 97 % Dr. Forrest Vera Work Phone: [facility] Work Phone: 11-26-2021 09:35-0400 Systolic blood pressure 110 mm[Hg] Dr. Forrest Vera Work Phone: [facility] Work Phone: 11-26-2021 09:35-0400 Body height 149.[address] Forrest Vera Work Phone: [facility] Work Phone: 11-26-2021 09:35-0400 Body mass index (BMI) [Ratio] 28.1 kg/m2 Dr. Forrest Vera Work Phone: [facility] Work Phone: 11-26-2021 09:35-0400 Body temperature 97.1 [degF] Dr. Forrest Vera Work Phone: [facility] Work Phone: 11-26-2021 09:35-0400 Body weight 63.[address] Forrest Vera Work Phone: [facility] Work Phone: 11-26-2021 09:35-0400 Diastolic blood pressure 66 mm[Hg] Dr. Forrest Vera Work Phone: [facility] Work Phone: 11-26-2021 09:35-0400 Heart rate 66 /min Dr. Forrest Vera Work Phone: [facility] Work Phone: 11-26-2021 09:35-0400 Respiratory rate 16 /min Dr. Forrest Vera Work Phone: [facility] Work Phone: 11-26-2021 09:35-0400 SaO2% (BldA) [Mass fraction] 97 % Dr. Forrest Vera Work Phone: [facility] Work Phone: 11-26-2021 09:35-0400 Systolic blood pressure 110 mm[Hg] Dr. Forrest Vera Work Phone: [facility] Work Phone: 11-25-2021 12:54-0400 Body weight 65.[address] Forrest Vera Work Phone: [facility] Work Phone: 11-25-2021 12:54-0400 Heart rate 75 /min Dr. Forrest Vera Work Phone: [facility] Work Phone: 11-25-2021 12:54-0400 SaO2% (BldA) [Mass fraction] 96 % Dr. Forrest Vera Work Phone: [facility] Work Phone: 11-03-2021 14:02-0500 Body mass index (BMI) [Ratio] 28 kg/m2 Dr. Forrest Vera Work Phone: [facility] Work Phone: 11-03-2021 14:02-0500 Body temperature 98.6 [degF] Dr. Forrest Vera Work Phone: [facility] Work Phone: 11-03-2021 14:02-0500 Body weight 63.[address] Forrest Vera Work Phone: [facility] Work Phone: 11-03-2021 14:02-0500 Diastolic blood pressure 86 mm[Hg] Dr. Forrest Vera Work Phone: [facility] Work Phone: 11-03-2021 14:02-0500 Heart rate 85 /min Dr. Forrest Vera Work Phone: [facility] Work Phone: 11-03-2021 14:02-0500 Respiratory rate 17 /min Dr. Forrest Vera Work Phone: [facility] Work Phone: 11-03-2021 14:02-0500 SaO2% (BldA) [Mass fraction] 95 % Dr. Forrest Vera Work Phone: [facility] Work Phone: 11-03-2021 14:02-0500 Systolic blood pressure 140 mm[Hg] Dr. Forrest Vera Work Phone: [facility] Work Phone: 11-03-2021 13:02-0500 Body mass index (BMI) [Ratio] 28 kg/m2 Dr. Forrest Vera Work Phone: [facility] Work Phone: 11-03-2021 13:02-0500 Body temperature 98.6 [degF] Dr. Forrest Vera Work Phone: [facility] Work Phone: 11-03-2021 13:02-0500 Body weight 63.[address] Forrest Vera Work Phone: [facility] Work Phone: 11-03-2021 13:02-0500 Diastolic blood pressure 86 mm[Hg] Dr. Forrest Vera Work Phone: [facility] Work Phone: 11-03-2021 13:02-0500 Heart rate 85 /min Dr. Forrest Vera Work Phone: [facility] Work Phone: 11-03-2021 13:02-0500 Respiratory rate 17 /min Dr. Forrest Vera Work Phone: [facility] Work Phone: 11-03-2021 13:02-0500 SaO2% (BldA) [Mass fraction] 95 % Dr. Forrest Vera Work Phone: [facility] Work Phone: 11-03-2021 13:02-0500 Systolic blood pressure 140 mm[Hg] Dr. Forrest Vera Work Phone: [facility] Work Phone: 09-21-2021 13:53-0500 Body mass index (BMI) [Ratio] 28.5 kg/m2 Dr. Forrest Vera Work Phone: [facility] Work Phone: 09-21-2021 13:53-0500 Body temperature 97.7 [degF] Dr. Forrest Vera Work Phone: [facility] Work Phone: 09-21-2021 13:53-0500 Body weight 63.[address] Forrest Vera Work Phone: [facility] Work Phone: 09-21-2021 13:53-0500 Diastolic blood pressure 78 mm[Hg] Dr. Forrest Vera Work Phone: [facility] Work Phone: 09-21-2021 13:53-0500 Heart rate 80 /min Dr. Forrest Vera Work Phone: [facility] Work Phone: 09-21-2021 13:53-0500 Respiratory rate 14 /min Dr. Forrest Vera Work Phone: [facility] Work Phone: 09-21-2021 13:53-0500 SaO2% (BldA) [Mass fraction] 98 % Dr. Forrest Vera Work Phone: [facility] Work Phone: 09-21-2021 13:53-0500 Systolic blood pressure 124 mm[Hg] Dr. Forrest Vera Work Phone: [facility] Work Phone: 08-13-2021 10:31-0500 Body mass index (BMI) [Ratio] 28 kg/m2 Dr. Forrest Vera Work Phone: [facility] Work Phone: 08-13-2021 10:31-0500 Body weight 63.[address] Forrest Vera Work Phone: [facility] Work Phone: 08-13-2021 10:31-0500 Diastolic blood pressure 86 mm[Hg] Dr. Forrest Vera Work Phone: [facility] Work Phone: 08-13-2021 10:31-0500 Heart rate 76 /min Dr. Forrest Vera Work Phone: [facility] Work Phone: 08-13-2021 10:31-0500 Respiratory rate 18 /min Dr. Forrest Vera Work Phone: [facility] Work Phone: 08-13-2021 10:31-0500 SaO2% (BldA) [Mass fraction] 98 % Dr. Forrest Vera Work Phone: [facility] Work Phone: 08-13-2021 10:31-0500 Systolic blood pressure 139 mm[Hg] Dr. Forrest Vera Work Phone: [facility] Work Phone: 01-05-2021 13:18-0400 Body mass index (BMI) [Ratio]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 Start: 11-08-2022 End: 12-05-2024 Cigarettes smoked current (pack per day) - Reported 0.5 [facility] Start: 11-08-2022 End: 12-05-2024 Tobacco use and exposure User of smokeless tobacco [facility] Work Phone: Start: 11-08-2022 End: 11-25-2022 Alcohol intake Lifetime non-drinker (finding) [facility] Start: 04-24-2019 History SDOH Alcohol Frequency 1 [facility] Start: 11-08-2022 Tobacco Comment pt smoke half pack per day [facility] Start: 1955 Sex Assigned At Not on file [facility] Start: 04-24-2019 End: 12-05-2024 Alcohol Use Disorder Identification Test - Consumption [AUDIT-C] [facility] How often to you hav e a drink containing alcohol? Never [facility] Start: 08-05-2012 Average Number of Drinks Not on file [facility] Start: 12-05-2024 Tobacco smoking stat us NHIS Ex-smoker [facility] History of tobacco use Current smoker [facility] Start: 12-05-2024 End: 03-06-2025 Alcoholic beverage intake [facility] Start: 12-05-2024 Alcohol Comment daily -none si nce 05/2022 [facility] Medical Equipment Procedure Code Equipment Code Equipment [...] Facility 09-23-2022 Functional Status Up ad manpreet [place] [facility] nevareztal [facility] 09-23-2022 Functional Status Standard Safet y ID band on, Allergy Band on, Call device within reach, Bed in low position, Wheels locked, Upper/Half-Length side-rails up, Visitor at bedside [facility] Mental Status Date Assessment Result Facility 09-23-2022 Mental Status Orientation Oriented x 4 [facility] 09-23-2022 Mental Status [place] [facility] Clinical Notes 09-23-2022 to 06-11-2025 Patient InstructionsWinnie Hernandez PA-C - 03/06/2025 12:52 PM EDTTelephone Encounter - Whit Jang MA - 12/06/2024 2:48 PM EDTTelephone Encounter - Whit Jang MA - 12/06/2024 2:48 PM EDT Note Date & Type Note Facility 06-11-2025 Note HNO ID: [id number] Author: WINNIE HERNANDEZ PA-C Service: ? Author Type: Physician Director Of Instrumental Music Type: Progress Notes Filed: 06/11/2025 17:49 Note Text: Rheumatology Clinic Visit June 11, 2025 Last seen: 03/06/2025 (with Winnie Hernandez) CC: Established Patient (Follow up) HPI: Lele Pang is a 70 year old female who follows with rheumatology for Rheumatoid arthritis. BRIEF RHEUM History: Diagnosed with RA in 2015 though [facility] after multiple trigger finger surgeries and elevated rheumatologic markers. - Initially treated with methotrexate injections, which was later switched to leflunomide -history of osteoarthritis in her back and hips, for which she receives injections. She recently had a lumbar injection for severe sciatica with pain management at [facility], which significantly limited her mobility and [...] injection site reaction, skin dicoloration) Current clinical: Surgery scheduled 06/23/[address] Chow at [facility], planning a lumbar fusion L4. Mood is doing a bit better. Managing this with her psychiatrist. Changing some meds. Had to titrate off her old meds, and now using new meds (Auvelity) Rheumatoid seems to be doing OK. Not having much in terms of hand and wrist pain. Admit some swelling in ankles, not much pain. Worse at end of day Denies significant peripheral joint pain. Denies morning stiffness. Denies weight loss, night sweats, or GI side effects Monitoring: Labs 05/29 - Rise in Creat Blood TB Negative (02/11/2025) Remote Hep Latest Ref Rng AND Units 02/11/2025 Hepatitis Screen Hep B Core Ab, Total Negative Negative Hep B Surf Ab Qual Negative Hep C Antibody IA Negative Negative Hep B Surface Ag Negative Negative Last Bone Density: 12/18/2024 at [facility] - LS T-score -2.2 stable (3% increase) - RFN T-score -1.7 - R Total Hip T-score -1.4 stable (0.3% decrease) Last Uric acid Latest Ref Rng AND Units 01/27/2013 Uric Acid Uric Acid 2.5 - 6.2 mg/dL 6.7 Sed rate/CRP Latest Ref Rng AND Units 09/26/2023 02/11/2025 05/26/2025 ESR, WSR WSR 0 - 20 mm/hr 2 2 5 Latest Ref Rng AND Units 02/11/2025 05/26/2025 CRP CRP <0.9 mg/dL <0.3 <0.3 OUTSIDE STUDIES / DATA Labs done 25 at [facility]. Sed rate 7 normal BMP with elevated BUN 23 normal creatinine 0.92 AST ALT normal Tisha 1 negative SSA negative SSB negative Small negative PULL THROUGH HOOKER negative SCL 70 negative double-stranded DNA negative [...] spine -Left femur total T-score -1.4 -Left (more content not included)... [facility] 03-06-2025 Instructions Winnie Hernandez PA-C - 03/06/2025 1:29 PM EDT Labs due in May documented in this encounter [facility] 03-06-2025 Note HNO ID: [id number] Author: WINNIE HERNANDEZ PA-C Service: ? Author Type: Physician Director Of Instrumental Music Type: Progress Notes Filed: 03/06/2025 13:57 Note Text: Rheumatology Clinic Visit March 06, 2025 Last seen: 12/05/24 CC: Follow Up HPI: Lele Pang is a 69 year old female who follows with rheumatology for Rheumatoid arthritis. BRIEF RHEUM History: Diagnosed with RA in 2014 though [facility] after multiple trigger finger surgeries and elevated rheumatologic markers. - Initially treated with methotrexate injections, which was later switched to leflunomide -history of osteoarthritis in her back and hips, for which she receives injections. She recently had a lumbar injection for severe sciatica with pain management at [facility], which significantly limited her mobility and [...] stress test and ECHO done all through [facility]. Mentally she feels like she is [...] Negative Negative Last Bone Density: 12/18/2024 at [facility] - LS T-score -2.2 stable (3% [...] STUDIES / DATA Labs done 25 at [facility]. Sed rate 7 normal BMP with elevated BUN 23 normal creatinine 0.92 AST ALT normal Tisha 1 negative SSA negative SSB negative Small negative PULL THROUGH HOOKER negative SCL 70 negative double-stranded DNA negative [...] no erosive fe (more content not included)... [facility] 03-06-2025 History of Presen t illness Narrative Images from the original note were not included. Rheumatology Clinic Visit March 06, 2025 Last seen: 12/05/24 CC: Follow Up HPI: Lele Pang is a 69 year old female who follows with rheumatology for Rheumatoid arthritis. BRIEF RHEUM History: Diagnosed with RA in 2014 though [facility] after multiple trigger finger surgeries and elevated rheumatologic markers. - Initially treated with methotrexate injections, which was later switched to leflunomide -history of osteoarthritis in her back and hips, for which she receives injections. She recently had a lumbar injection for severe sciatica with pain management at [facility], which significantly limited her mobility and [...] stress test and ECHO done all through [facility]. Mentally she feels like she is [...] Negative Negative Last Bone Density: 12/18/2024 at [facility] - LS T-score -2.2 stable (3% [...] STUDIES / DATA Labs done 25 at [facility]. Sed rate 7 normal BMP with elevated BUN 23 normal creatinine 0.92 AST ALT normal Tisha 1 negative SSA negative SSB negative Small negative PULL THROUGH HOOKER negative SCL 70 negative double-stranded DNA negative [...] in the lumbar spine DEXA 12/18/2024 at [facility] - LS T-score -2.2 stable (3% [...] claudication present - has surgery scheduled with [facility] if she can pass nicotine testing. [...] which included preparing to see the patient, [id number] patient care, completing clinical documentation, obtaining and/or reviewing separately obtained history, performing a medically appropriate examination, counseling and educating the patient/family/caregiver, and ordering medications, tests, or procedures. Winnie Hernandez PA-C documented in this encounter [facility] 12-29-2024 Note HNO ID: [id number] Author: JOSEFA SERNA APRN.CLINICAL MASSAGE THERAPIST Service: ? Author Type: Nurse Practitioner Type: [...] pressure medications. Friend will take her now. [facility] 12-06-2024 Telephone encounter Note 109 pages of records received via fax from [facility]. Can be found under scanned documents. [facility] 12-06-2024 Miscellaneous Notes 109 pages of records received via fax from [facility]. Can be found under scanned documents. Message left on voicemail at [facility] for past records for this patient to be faxed to this office. documented in this encounter [facility] 12-05-2024 Telephone encounter Note Message left on voicemail at [facility] for past records for this patient to be faxed to this office. [facility] 12-05-2024 Instructions Winnie Hernandez PA-C - 12/05/2024 11:54 AM EDT We discussed your rheumatoid arthritis: - Continue taking Leflunomide as prescribed. A 90-day supply has been sent to your pharmacy ([facility] on [address], [address]). - Schedule follow-up labs in [...] - Schedule a bone density test at [facility] before your next visit to monitor your [...] immediately. documented in this encounter [facility] 12-05-2024 Note HNO ID: [id number] Author: WINNIE HERNANDEZ PA-C Service: ? Author Type: Physician Director Of Instrumental Music Type: Progress Notes Filed: 12/05/2024 21:46 Note Text: Rheumatology CONSULTATION Date of Service: 12/05/2024 Patient: Lele Pang Medical Record: [id number] Primary Care Physician: Forrest Vera MD Last Rheumatology visit: None at [facility] Referring Provider: Daron Mark [address] [facility] [address] Lele Pang is here today at request of Dr. Mark specifically for consultation of my opinion in regards to the chief complaint listed below. Correspondence will be shared today via the [facility] or through regular mail, where applicable. History of Present Illness Lele is a 69-year-old female with a history of RA, presenting for evaluation and management. She is currently taking leflunomide. Lele is both RF - 34 (09/26/2023) and CCP positive. 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 Arteaga PAST SURGICAL HISTORY OF Left [...] Reported on 12/05/2024) (more content not included)... [facility] 12-05-2024 History of Presen t illness Narrative Images from the original note were not included. Rheumatology CONSULTATION Date of Service: 12/05/2024 Patient: Lele Pang Medical Record: [id number] Primary Care Physician: Forrest Vera MD Last Rheumatology visit: None at [facility] Referring Provider: Daron [address] [facility] [address] Lele Pang is here today at request of Dr. Mark specifically for consultation of my opinion in regards to the chief complaint listed below. Correspondence will be shared today via the [facility] electronic health record or through regular mail, where applicable. History of Present Illness Lele is a 69-year-old female with a history of RA, presenting for evaluation and management. She is currently taking leflunomide. Lele is both RF - 34 (09/26/2023) and CCP positive. 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 Arteaga PAST SURGICAL HISTORY OF [...] - 15.5 g/dL 14.3 13.9 13.8 Hemoglobin, [facility] 12.0 - 16.0 g/dL 13.9 Hematocrit 36.0 [...] - 144 mmol/L 142 139 140 Sodium, Paul 136 - 145 mmol/L 144 Potassium 3.7 - 5.1 mmol/L 4.0 3.9 3.8 Potassium, Paul 3.5 - 5.1 mmol/L 4.4 Chloride 97 - 105 mmol/L 105 108 104 Chloride, [facility] 98 - 107 mmol/L 105 CO2 22 - 30 mmol/L 28 24 28 CO2, [facility] 21.0 - 32.0 mmol/L 27.8 Glucose 74 - 99 mg/dL 90 97 102 Glucose, [facility] 70 - 99 mg/dL 96 BUN 7 - 21 mg/dL 14 19 20 BUN, [facility] 7 - 18 mg/dL 17 Creatinine 0.58 - 0.96 mg/dL 0.79 0.70 0.72 Creatinine, [facility] 0.6 - 1.0 mg/dL 0.7 Calcium, [facility] 8.5 - 10.1 mg/dL 9.0 Calcium 8.5 - 10.2 mg/dL 9.6 10.1 10.2 AST 13 - 35 U/L 32 15 26 AST, [facility] 15 - 37 U/L 20 ALT 7 - 38 U/L 29 18 22 ALT, [facility] 30 - 65 U/L 43 Alkaline Phosphatase [...] STUDIES / DATA Labs done 25 at [facility]. Sed rate 7 normal BMP with elevated BUN 23 normal creatinine 0.92 AST ALT normal Tisha 1 negative SSA negative SSB negative Small negative PULL THROUGH HOOKER negative SCL 70 negative double-stranded DNA negative [...] Immunizations Never Reviewed Name Date COVID-19 vaccine (Narr8) 07/22/2023 COVID-19 vaccine, bivalent ([facility]) 09/22/2022 COVID-19 vaccine, monovalent (Narr8) 01/20/2022, 07/09/2021, 12/01/2020, 11/10/2020 Physical Exam GENERAL [...] Full ROM in flexion and extension. Full paralegals strength. No swelling or synovitis along the [...] trigger finger surgeries. Recent labs (10/2024) from [facility] with Positive RF/CCP Currently well-managed with leflunomide. Previous treatment with methotrexate was discontinued, possibly due to liver function concerns. No current joint pain or stiffness in hands; occasional swelling noted in the past. Physical exam reveals tenderness in some knuckles, but no significant inflammation observed. - Continue leflunomide therapy. Prescribed a 90-day supply, sent to [facility]. - Monitor liver function and blood [...] release surgery performed a week ago at [facility]. Patient reports some tenderness in the affected [...] bone density test to be performed at [facility] on same machine - Check vitamin D [...] supply has been sent to your pharmacy ([facility] on [address], [address]). - Schedule follow-up labs in [...] - Schedule a bone density test at [facility] before your next visit to monitor your [...] office. Will have staff request records from [facility] as well. Return in about 8 weeks (around 01/31/2025) for Follow up, labs prior. I spent a total of 60 minutes on the date of the service which included preparing to see the patient, [id number] patient care, completing clinical documentation, obtaining and/or reviewing separately obtained history, performing a medically appropriate examination, counseling and educating the patient/family/caregiver, and ordering medications, tests, or procedures. The patient consented to the use of [employer] software for draft documentation of the visit consistent with [facility] s Notice of Privacy Practices. Winnie Hernandez PA-C Rheumatology Date: December 05, 2024 Time: 9:45 PM documented in this encounter [facility] 11-26-2024 Note [facility] 11-25-2022 History of Presen t [...] PM documented in this encounter [facility] 11-25-2022 History of Presen t illness Narrative [...] history is provided by the patient. No sign language translator was used. Pain (Shoulder Pain) Review of [...] HX LUMBAR SPINE FUSION COMBINED 02/2017 L4-S1 [facility] Dr. Arteaga PAST SURGICAL HISTORY OF [...] joint. 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 [...] HX LUMBAR SPINE FUSION COMBINED 02/2017 L4-S[address] [facility] [address] Arteaga PAST SURGICAL HISTORY OF foot [...] APRN.CNP documented in this encounter [facility] 11-08-2022 Instructions Lizette Hayward APRN.CNP - 11/08/2022 [...] There are three types of hurst: First-degree husrt. These are relatively minor hurst on the [...] swelling. documented in this encounter [facility] 09-23-2022 Hospital Discharg e instructions Patient Education [...] worsens and is not improved with elevation. [id number] [employer]. [address] [place] [address]. All rights reserved. This information is not intended as a substitute for professional medical care. Always follow your healthcare professional's instructions. Follow Up Care 09/23/2022 17:27:06 With:Your pain management physician Address: When:2-4 days With:SAPNA ASHLEY MD Address: [facility] [place] [address]- When:2-4 days [facility] 09-23-2022 Note ORIGINAL EXAMINATION: THREE XRAY VIEWS [...] Sign Date: 09/23/2022 6:50:07 PM Ordering Provider: [facility] 09-23-2022 Note Discharge Instructions Thank you for allowing [facility] to assist you with your healthcare needs. [...] days Where: [facility] [place] [address]- Allergies benzonatate penicillin Medications Please ask your [...] worsens and is not improved with elevation. [id number] [employer]. [address] [place] [address]. All rights reserved. This information is not intended as a substitute for professional medical care. Always follow your healthcare professional's instructions. Additional Information VACCINATE! IT SAVES LIVES! Members of the community who have not yet received the COVID-19 vaccine and would like to receive it can visit one of [facility] vaccine clinics. There are many vaccine clinic locations within the [facility]. For locations and available times, please visit [email or web address]. It is important to note that some COVID mobile vaccine clinics are held outdoors and may be canceled in rainy or stormy conditions. To learn more about pediatric vaccinations (ages 5-11), we invite you to visit the [facility] webpage. [email or web address] To learn more about the COVID-19 vaccine, we invite you to visit the [facility] website for a list of frequently asked questions. [email or web address] [email or web address] [facility] Patient Portal Access Instructions: Stay connected with your healthcare team and access your personal medical information anytime with the [facility] Patient Portal. If you would like a full copy of your medical records please contact the [facility] Medical Records Department Monday through Monday between 8a.m. and 4:30p.m. Please follow the directions below to access the portal: 1.Access the email account you provided upon registration to the [facility].2.Look for an invitation email from [facility].3.Open the email and access the invitation link: Accept Invitation to [facility]4.Fill in the required lopez to create your account. Sign into [email or web address] with your username and password that you [...] you will allow to register on the [facility] Portal for access to your information. You can also access the [facility] Patient Portal on the [employer] memo. Simply click on Health Records under Health Data and then click on the [facility] logo. HOW TO SAFELY DISPOSE OF PRESCRIPTION [...] Call your local pharmacy or go to [email or web address] [email or web address] to find one close to you.3.Make use of household items: Use cat litter or old coffee grounds to dispose medications if other options are not available. Mix your drugs with these household products, seal them in an airtight container and throw it into the garbage. Call [facility]: [phone] to be sure your drugs can be [...] aware that I should contact my doctor. Patient/Trouble Dispatcher Signature: Date/Time: Relationship to Patient: Witness Name/Signature: Date/Time: [facility] 09-23-2022 Note ORIGINAL EXAMINATION: THREE XRAY VIEWS [...] 09/23/2022 6:50:07 PM Ordering Provider: ERICK BELL [facility] Evaluation + Plan note No data available for this section [facility] Evaluation note Diagnosis Onset Date Abnormal EKG acute CARBAJAL (dyspnea on exertion) ac [place] Essential hypertension chron ic Hyperlipemia chronic Insomnia acute Essential hypertension chron ic GERD (gastroesophageal reflux disease) chronic Nicotine dependence, cigaret dago, uncomplicated acute Shortness of breath acute [facility] Work Phone: Evaluation note* Diagnosis Onset Date Resolution Status Abnormal EKG acute CARBAJAL (dyspnea on exertion) ac [place] Essential hypertension chron ic Hyperlipemia chronic Essential hypertension chron ic GERD (gastroesophageal reflux disease) chronic Insomnia chronic Nicotine dependence, cigarettes, uncomplicated acute Shortness of breath chronic Essential hypertension chron ic Insomnia chronic Shortness of breath chronic Tobacco use disorder, continuous chronic Nicotine dependence, cigarettes, uncomplicated acute Tremor chronic [facility] Work Phone: Evaluation note* Diagnosis Onset Date Resolution Status Nicotine dependence, cigarettes, uncomplicated acute Shortness of breath chronic Essential hypertension chron ic Insomnia chronic Shortness of breath chronic Tobacco use disorder, continuous chronic Nicotine dependence, cigarettes, uncomplicated acute Tremor chronic Eosinophilia acute [facility] Work Phone: Evaluation note* Diagnosis Onset Date Resolution Status Nicotine dependence, cigarettes, uncomplicated acute Shortness of breath chronic Essential hypertension chron ic Insomnia chronic Shortness of breath chronic Tobacco use disorder, continuous chronic Nicotine dependence, cigarettes, uncomplicated acute Tremor chronic Eosinophilia acute Post-menopausal acute Vitamin D deficiency acute Essential hypertension chron ic Hyperlipemia chronic Overweight chronic [facility] Work Phone: Evaluation note* Diagnosis Onset [...] Smoking greater than 40 pack years acute [facility] Work Phone: Evaluation note* Diagnosis Onset Date Resolution Status Essential hypertension chron ic Insomnia chronic Shortness of breath chronic Tobacco use disorder, continuous chronic Nicotine dependence, cigarettes, uncomplicated acute Tremor chronic Eosinophilia acute Post-menopausal acute Vitamin D deficiency acute Essential hypertension chron ic Hyperlipemia chronic Overweight chronic Asthma acute Smoking greater than 40 pack years acute [facility] Work Phone: Evaluation note* Diagnosis Onset Date Resolution Status Osteopenia with high risk of fracture acute ADD (attention deficit disorder) chronic Essential hypertension chron ic [facility] Work Phone: Evaluation note* Diagnosis Onset Date Resolution Status ADD (attention deficit disorder) chronic Essential hypertension chron ic Osteopenia with high risk of fracture chronic AA (alcohol abuse) acute ADD (attention deficit disorder) chronic Essential hypertension chron ic Heat intolerance chronic Osteopenia with high risk of fracture chronic Tobacco use disorder, continuous chronic [facility] Work Phone: Evaluation note* Diagnosis Burn, wrist, second degree, left, initial encounter- Primary [facility] Diagnosis Pain- Primary Generalized pain [facility]* Diagnosis Pre-operative examination- Primary Preoperative examination, [...] history of tobacco use, presenting hazards to [facility] Pain Generalized pain [facility]* Diagnosis Pre-operative examination- Primary Preoperative examination, [...] type (HCC) [facility]* Diagnosis Pre-operative examination- Primary Preoperative examination, [...] neurogenic claudication present [facility] this encounter [facility]* Diagnosis Pre-operative examination- Primary Preoperative examination, [...] of tobacco use, presenting hazards to health Resistant hypertension documented in this encounter [facility] (narrative)* Diagnostic Procedure Only (Urgent) - Closed Specialty Diagnoses / Procedures Referred By Contac t Referred To Contact XR IMAGING Diagnoses Pain Procedures XR SHOULDER GENERAL 3V OR MORE AP/TRUE AP/OTHER RIGHT RADEX SHOULDER COMPLETE MINIMUM 2 VIEWS Josefa Serna, SANGITA.CLINICAL MASSAGE THERAPIST [address] [place] [address] [place] [address] Referral ID Status Reason Start Date Expiration Date V isits Requested Visits Authorized [id number] Closed Auto-Generate d Referral 11/25/2022 12/25/2023 1 1 [facility]* Diagnostic Procedure Only (Urgent) - Closed Specialty Diagnoses / Procedures Referred By Contac t Referred To Contact XR IMAGING Diagnoses Pain Procedures XR SHOULDER GENERAL 3V OR MORE AP/TRUE AP/OTHER RIGHT RADEX SHOULDER COMPLETE MINIMUM 2 VIEWS Josefa Serna APRN.CLINICAL MASSAGE THERAPIST [address] [place] [address] [place] [address] Referral ID Status Reason Start Date Expiration Date V isits Requested Visits Authorized [id number] Closed Auto-Generate d Referral 11/25/2022 12/25/2023 1 1 [facility] Summary Purpose Family History No Family History Records Found Relationship Condition Age at Onset Recorded Date/T leandro Not Specified Alcoholism Unknown Arthritis Unknown Cardiac disease Unknown Hyperlipidemia Unknown Hypertension Unknown Asthma Unknown brother Coronary artery disease 69 Advance Directives No Advanced Directives Records Found Advance Directive Response Recorded Date/ Time Advance Directives No April 08 10:35am Living Will Yes March 07, 2021 1 0:44pm Power of Hotel Lobby Concierge No March 07, 2021 10:44pm Advance Directive Response Recorded Date/ Time Advance Directives No April 08 9:35am Living Will Yes March 07, 2021 9 :44pm Power of Hotel Lobby Concierge No March 07, 2021 9:44pm Documents on File Type Date Recorded 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 HIGH MDM 60-74 MINUTES Josefa Serna APRN.CLINICAL MASSAGE THERAPIST [address] [place] [address] Referral ID Status Reason Start Date Expiration Date Visits Requested Visits Authorized [id number] Pending Review PCP Requested Referral 11/25/2022 11/25/2023 1 1 Specialty Diagnoses / Procedures Referred By Contac t Referred To Contact XR IMAGING Diagnoses Pain Procedures XR SHOULDER GENERAL 3V OR MORE AP/TRUE AP/OTHER RIGHT RADEX SHOULDER COMPLETE MINIMUM 2 VIEWS Josefa Serna APRN.CLINICAL MASSAGE THERAPIST [address] [place] [address] Xr Imaging Referral ID Status Reason Start Date Expiration Date V isits Requested Visits Authorized [id number] Closed Auto-Generate d Referral 11/25/2022 12/25/2023 1 1 Additional Source Comments INFORMATION SOURCE (unrecogn ized section and content) DATE CREATED AUTHOR 05/22/2019 [facility] DATE CREATED AUTHOR AUTHOR'S ORGANIZ ATION 10/01/2022 [facility] ([place]) DATE CREATED AUTHOR AUTHOR'S ORGANIZ ATION 06/22/2025 [facility] DATE CREATED AUTHOR AUTHOR'S ORGANIZ ATION 06/22/2025 [facility] Goals (unrecognized section and content) Goals may [...] Role: Primary Care Physician Address: Address: [facility] [place] [address]- Name: ERICK BELL DO Position: Resident Member Role: Resident Address: Address: [address] [facility] [place] [address]- Name: JOSE RAMON Paniagua Position: AO RN [...] prosecute any alcohol or drug abuse patient.[facility] the event this information is protected by the Federal Confidentiality of Alcohol and Drug Abuse Patient Records regulations: The Federal rules restrict any use of the information to criminally investigate or prosecute any alcohol or drug abuse patient.[facility] the event this information is protected by the Federal Confidentiality of Alcohol and Drug Abuse Patient Records regulations: The Federal rules restrict any use of the information to criminally investigate or prosecute any alcohol or drug abuse patient.[facility] the event this information is protected by the Federal Confidentiality of Alcohol and Drug Abuse Patient Records regulations: The Federal rules restrict any use of the information to criminally investigate or prosecute any alcohol or drug abuse patient.[facility] the event this information is protected by the Federal Confidentiality of Alcohol and Drug Abuse Patient Records regulations: The Federal rules restrict any use of the information to criminally investigate or prosecute any alcohol or drug abuse patient.[facility] the event this information is protected by the Federal Confidentiality of Alcohol and Drug Abuse Patient Records regulations: The Federal rules restrict any use of the information to criminally investigate or prosecute any alcohol or drug abuse patient.[facility] the event this information is protected by the Federal Confidentiality of Alcohol and Drug Abuse Patient Records regulations: The Federal rules restrict any use of the information to criminally investigate or prosecute any alcohol or drug abuse patient.[facility] the event this information is protected by the Federal Confidentiality of Alcohol and Drug Abuse Patient Records regulations: The Federal rules restrict any use of the information to criminally investigate or prosecute any alcohol or drug abuse patient.[facility] the event this information is protected by the Federal Confidentiality of Alcohol and Drug Abuse Patient Records regulations: The Federal rules restrict any use of the information to criminally investigate or prosecute any alcohol or drug abuse patient.[facility] the event this information is protected by the Federal Confidentiality of Alcohol and Drug Abuse Patient Records regulations: The Federal rules restrict any use of the information to criminally investigate or prosecute any alcohol or drug abuse patient.[facility] Reason for Visit (unrecogniz ed section and content) Reason Comments Burn left wrist x 5 days, iron Reason Comments Pain (Shoulder Pain) R shoulder pain x1 week Reason Comments New Patient Specialty Diagnoses / Procedures Referred By Zahra guajardo Referred To Contact Rheumatology / RHEUMATOLOGY Diagnoses Rheumatoid arthritis (HCC) rheumaoid arthritis referred by Daron Mark Procedures OFFICE/OUTPATIENT [facility] 60 MINUTES [facility] Daron Mark, ROSIO [address] [place] [address] Phone: tel: fax: Winnie Hernandez PA-C [address] [place] [address] [place] [address] Phone: tel: fax: Referral ID Status Reason Start Date Expiration Date Visits Re quested Visits Authorized [id number] Closed 11/27/2024 09/03/2025 1 1 Reason Comments Request Outside Medical Records Reason Comments Follow Up Specialty Diagnoses / Procedures Referred By Zahra guajardo Referred To Contact Rheumatology / RHEUMATOLOGY Diagnoses Rheumatoid arthritis (HCC) rheumaoid arthritis referred by Daron Mark Procedures OFFICE/OUTPATIENT [facility] 60 MINUTES [facility] Daron Mark, CLINICAL MASSAGE THERAPIST [address] [place] [address] Phone: tel: fax: Winnie Hernandez PA-C [address] [place] [address] [place] [address] Phone: tel: fax: Care Teams (unrecognized sec tion and content) Hooker Laster Relationship Specialty Start Date End Date Forrest Vera MD [address] [place], [place] [id number] [phone]- PCP - General Internal Medicine 11/08/22 Hooker Laster Relationship Specialty Start Date End Date Forrest Vera MD [address] [place], [place] [id number] PCP - General Internal Medicine 11/08/22 Hooker Laster Relationship Specialty Start Date End Date Forrest Vera MD [address] [place], [place] [id number] [phone] PCP - General Internal Medicine 11/08/22 Hooker Laster Relationship Specialty Start Date End Date Forrest Vera MD [address] [place], [place] [id number] [phone] PCP - General Internal Medicine 11/08/22 Hooker Laster Relationship Specialty Start Date End Date Forrest Vera MD [address] [place] [address] PCP - General Internal Medicine 11/08/22 Hooker Laster Relationship Specialty Start Date End Date Forrest Vera MD [address] [place] [address] PCP - General Internal Medicine 11/08/22 Hooker Laster Relationship Specialty Start Date End Date Se Roberts CNP [address] [place] [place] [address] PCP - General Family Medicine 12/29/24 Hooker Laster Relationship Specialty Start Date End Date Se Roberts CNP [address] [facility] [place] [address] PCP - General Family Medicine 12/29/24 Hooker Laster Relationship Specialty Start Date End Date Se Roberts CNP [address] [place] [place] [address] PCP - General Family Medicine 12/29/24 Hooker Laster Relationship Specialty Start Date End Date Se Roberts C[facility] [address] [facility] [place] [address] PCP - General Family Medicine 12/29/24 FOR [...] BE BASED ON THE PRIMARY CLINICAL RECORDS. [facility]. provides no warranty or guarantee of the accuracy or completeness of information in this document.
[2025-06-23] MEDS: Lactated Ringers 1,000 ML 15 ML IV (06:20)
[2025-06-23] MEDS: Magnesium 1 GM over 15 mins IV (06:21)
--- NOTE | 2025-06-23 07:00 | PRE.ANES_ITS ---
ASA Classification* ASA Classification ASA Classification: 2 Assessment & Plan Anesthesia* Anesthesia Assessment Anesthesia Assessment: Discussed sedation and/or anesthesia options, risks, benefits, and alternatives with patient/parents/legal guardian/POA. Questions invited. The patient/parents/legal guardian/POA seems to understand and agrees to proceed with anesthesia plan. Reviewed the physical assessment, medical history, allergy history and patient home medications list prior to surgery/procedure/anesthetic and documented any changes. Performed airway and anesthesia risk assessments. Anesthesia Type Anesthesia Type: General Anesthesia Focused Assessment* Temperature: 97.3 F Pulse Rate: 59 Blood Pressure: 118/73 Respiratory Rate: 16 Pulse Ox: 96 Airway Assessment Mouth opens: >3 cm Mallampati Score: II Labs Anesthesia Preop lab: CBC WBC, (4.4-11.0) 5.8 K/mm3 06/12/25, 14:39 RBC, (4.2-5.4) 4.54 M/mm3 06/12/25, 14:39 Hgb, (12.0-15.0) 12.7 g/dL 06/12/25, 14:39 Hct, (37-47) 41.2 % 06/12/25, 14:39 Plt Count, (150-450) 233 K/mm3 06/12/25, 14:39 CHEMISTRY Potassium, (3.3-5.1) 4.1 mmol/L 06/12/25, 14:39 Sodium, (133-145) 143 mmol/L 06/12/25, 14:39 Magnesium, (1.5-2.2) 2.1 mg/dL 06/12/25, 14:38 Phosphorus, (2.7-4.5) 2.9 mg/dL 04/25/25, 15:34 BUN, (4-19) 23 mg/dL H 06/12/25, 14:39 Creatinine, (0.70-1.20) 1.01 mg/dL 06/12/25, 14:39 Glucose, (70-99) 102 mg/dL H 06/12/25, 14:39 TSH, (0.300-4.200) 0.573 uIU/mL 02/25/25, 14:46 COAG PT, (11.7-14.9) 11.8 SECONDS 07/14/21, 15:37 Pre-Assessment Diagnosis/Proposed Procedure Planned Operative Procedure(s): ERAS, 360 Lumbar Fusion L3-4 anterior and revision posterior L3-4 and L4-5 fusion, removal and reinsertion of hardware Anesthesia History 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 When Was Last Pacemaker Check QUESTION #4 FULL TEXT: You/Your Family Experience fever (hyperthermia) with Anesthesia Last Oral Intake Last Oral intake: Last Oral Intake NPO since 05:00 06/23/25 06:24 Meds taken in AM with sips of Yes 06/23/25 06:24 water? Meds patient instructed to OMEPRAZOLE 06/23/25 06:24 take am of surgery PREGABALIN PROPANOLOL INHALER PONV PONV - electronic parts salesperson: PONV - electronic parts salesperson Female Yes 06/09/25 15:59 HX of Motion Sickness Yes 06/09/25 15:59 HX of N/V After Surgery No 06/09/25 15:59 Non-Smoker Yes 06/09/25 15:59 Duration of Surgery greater No 06/09/25 15:59 than 60 minutes Number of Risk Factors 3 06/09/25 15:59 PONV Score Moderate Risk 06/09/25 15:59 Height & Weight Height & Weight: Anesthesia: Height & Weight Height 4 ft 10 in 06/23/25 06:24 Weight: 64 kg 06/23/25 06:24 Body Mass Index (BMI) 29.5 06/23/25 06:24 Respiratory Assessment Respiratory Assessment - electronic parts salesperson: Respiratory Tract Infection Hx - electronic parts salesperson Hx Respiratory Tract Infection No 06/09/25 15:59 STOP Sleep Apnea STOP Sleep Apnea - electronic parts salesperson: STOP Sleep Apnea - electronic parts salesperson Hx Hypertension Yes: CONTROLLED WITH MED 06/09/25 15:59 Hx Sleep Apnea No 06/09/25 15:59 CPAP No 06/09/25 15:59 BIPAP Do you snore loudly (louder No 06/09/25 15:59 than talking or can be heard Do you often feel tired/ No 06/09/25 15:59 fatigued/ sleepy during daytime? Has anyone observed you stop No 06/09/25 15:59 breathing during sleep? STOP Results Negative 06/09/25 15:59 QUESTION #5 FULL TEXT : Do you snore loudly (louder than talking or can be heard through closed doors)? Tobacco Use History Tobacco Use History - electronic parts salesperson: Tobacco Use History - electronic parts salesperson Tobacco Use Vapor 11/26/24 07:30 Smoking Status Former smoker 06/09/25 15:59 Hx Tobacco Use Yes 06/09/25 15:59 Years Smoking Packs Smoked per Day Smoking Cessation Date was Yes - quit smoking within 15 06/09/25 15:59 within the last 15 years years Hx Smoking Cessation Date 03/05/25 06/09/25 15:59 Hx Smoking Cessation Counseling Hematologic Medial History Hematologic Hx - electronic parts salesperson: Hematologic Medical Hx - rn clinical documentation specialist Hx of Blood Transfusion No 06/09/25 15:59 Hx of Transfusion in last 3 No 06/09/25 15:59 Months Date of Last Transfusion (if within last 3 months) Ever experience any problems No 06/09/25 15:59 with transfusion(s)? Specify any problems Hx of Preganancy in last 3 No 06/09/25 15:59 Months Nurse Filling Out Transfusion VCHRISTIN 06/09/25 15:59 & Questions: Date: 06/09/25 06/09/25 15:59 Time: 16:01 06/09/25 15:59 Patient unable to answer at this time (ie. confused, unrespo /Reproduction History /Reproductive History - electronic parts salesperson: /Reproductive Hx- electronic parts salesperson Hx Now Gestational Age (in weeks): EDC: Hx Hx Para Hx Section SAB Active Medications Active Medications: Current Medications Generic Name Dose Route Start Last Admin Trade Name Freq PRN Reason Stop Dose Admin Acetaminophen 1,000 mg 06/23/25 07:30 06/23/25 06:23 Acetaminophen 500 Mg Tablet PO 06/23/25 07:31 1,000 mg PREOP ONE Administration Clindamycin Phosphate 900 mg in 50 mls @ 75 mls/hr 06/23/25 07:30 Cleocin IV 06/23/25 08:09 INTRAOP ONE Tranexamic Acid 1,000 mg/ 110 mls @ 440 mls/hr 06/23/25 07:30 Sodium Chloride IV 06/23/25 07:44 INTRAOP ONE Tranexamic Acid 1,000 mg/ 110 mls @ 440 mls/hr 06/23/25 08:30 Sodium Chloride IV 06/23/25 08:44 INTRAOP ONE Magnesium Sulfate 1 gm/ 102 mls @ 408 mls/hr 06/23/25 07:30 06/23/25 06:21 Dextrose IV 06/23/25 07:44 408 mls/hr PREOP ONE Administration Lactated Ringer's 1,000 mls @ 15 mls/hr 06/23/25 06:00 06/23/25 06:20 IV 15 mls/hr .Q48H LINH Administration Insulin Human Lispro 1 - 6 unit 06/23/25 07:30 Insulin Lispro 100 Unit/Ml Insuln.Pen SC 06/23/25 13:30 Q4H PRN PRN BG>/= 180, SEE PROTOCOL Protocol PFSH Medical History History of trigger finger History of Holter monitoring Impingement of right shoulder Primary osteoarthritis, right shoulder Right shoulder pain Vapes nicotine containing substance Osteoarthritis Lumbar radiculopathy Impacted cerumen of both ears Wears glasses High cholesterol Former smoker Hypertension History of echocardiogram History of stress test Cardiology follow-up encounter Vitamin deficiency Chronic constipation Borderline type 2 diabetes mellitus Alcohol use disorder in remission Depression, unspecified ADHD Heat intolerance Osteopenia with high risk of fracture Smoking greater than 40 pack years Tremor Nicotine dependence, cigarettes, uncomplicated Insomnia CARBAJAL (dyspnea on exertion) Shortness of breath Abnormal EKG AA (alcohol abuse) COVID-19 vaccine series completed Essential hypertension Acute low back pain ADD (attention deficit disorder) Back pain Jaw swelling Low back pain due to bilateral sciatica Tobacco use disorder, continuous Encounter for screening for malignant neoplasm of lung in current smoker with 30 pack year history or greater Post-menopausal Eosinophilia Abnormal bruising Hay fever Fatigue Spinal cord stimulator status Overweight GERD (gastroesophageal reflux disease) Rheumatoid arthritis Primary osteoarthritis of left hip Vitamin D deficiency Anxiety and depression Rheumatoid arthritis Neuropathy Hyperlipemia Chronic bronchitis Cataracts, bilateral Asthma History of alcohol abuse Seasonal allergies Unilateral primary osteoarthritis, right hip Spondylosis of 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 myelopathy or radiculopathy Spinal stenosis of lumbosacral region Radiculopathy of lumbosacral region Degeneration, intervertebral disc, lumbosacral Home Medications ?Medication ?Instructions ?Recorded ?Last Taken ?Type blood pressure monitor (Blood #1 ea 09/30/20 Unknown R x Pressure Kit) omeprazole 40 mg capsule,delayed 40 mg PO DAILY GERD # 90 caps 12/15/22 06/23/25 05:00 Rx release albuterol sulfate 90 mcg/actuation 2 puff inhalation Q 6H PRN 02/23/23 Unknown Rx aerosol inhaler (ProAir HFA) shortness of breath or wh eezing #8.5 grams Handicap Placard #1 ea 07/26/23 Unknown Rx amlodipine 10 mg tablet 10 mg PO DAILY BP #90 tabs 0 09/13/23 Unknown Rx 3 mL syringe with 1 inch 25-gauge #6 ea 10/24/24 Unkno wn Rx needle acyclovir 400 mg tablet 400 mg PO MOWEFR HPV 5 Unknown History alendronate 70 mg tablet 70 mg PO QWEEK BONE HEALTH 0 11/12/24 06/19/25 History methylphenidate HCl 30 mg biphasic 30 mg PO BID ADHD 0 11/12/24 Unknown History 50-50 capsule,extended release Symbicort 160 mcg-4.5 2 inh inhalation BID ASTHMA #10.2 12/18/24 06/23/25 Rx mcg/actuation HFA aerosol inhaler grams (budesonide-formoterol) pregabalin 150 mg capsule 150 mg PO TID RA 12/19/24 05:00 History valsartan 320 mg tablet 320 mg PO DAILY BP 12/29/24 Unknown History aspirin 81 mg tablet 81 mg PO QDAY BLOOD THINNER 02/10/25 06/21/25 History leflunomide 20 mg tablet 20 mg PO QDAY RA 02/10/25 Un known History albuterol sulfate 2.5 mg/3 mL 2.5 mg (3 mL) inhalation Q4H PRN 02/26/25 Unknown Rx (0.083 %) solution for nebulization Sob &/Or Wheezing #180 mL brexpiprazole 0.5 mg tablet 0.5 mg PO QHS ANTIDEPRESSA NT 03/04/25 Unknown History (Rexulti) linaclotide 72 mcg capsule 72 mcg PO MOWEFR CONSTIPATI ON 03/04/25 Unknown History dextromethorphan IR 45 1 tab PO DAILY ANTIDEPRESSAN T 06/09/25 Unknown History mg-bupropion ER 105 mg biphasic tablet (Auvelity) ergocalciferol (vitamin D2) 1,250 1,250 mcg PO QMONTH SUPPLEMENT 06/09/25 Unknown History mcg (50,000 unit) capsule (Vitamin D2) furosemide 40 mg tablet 40 mg PO DAILY DIUERTIC 02/26 Unknown History pravastatin 40 mg tablet 40 mg PO MOWEFR CHOLESTEROL 06/09/25 Unknown History spironolactone 25 mg tablet 25 mg PO DAILY BP 06/09/25 Unknown History (Aldactone) calcium 600 mg (as carbonate)-vit 1 tab PO QDAY Unknown History D3 10 mcg (400 unit) chewable tablet (Calcium 600 with Vitamin D3) propranolol 20 mg tablet 20 mg PO BID TREMORS #60 tab s 06/12/25 06/23/25 05:00 Rx tizanidine 4 mg tablet 4 mg PO QHS muscle 06/23/25 Unknown History spasticity/muscle pain/insomnia Allergy/AdvReac Type Severity Reaction Status Date / Time Penicillins Allergy Mild Hives Verified 06/23/25 06:14 adhesive tape AdvReac Severe Rash, Verified 06/23/25 06:14 itchy, raw acetaminophen (From Percocet) AdvReac Intermediate insomnia Verified 06/23/25 06:14 oxycodone (From Percocet) AdvReac Intermediate insomnia Verified 06/23/25 06:14 benzonatate (From Tessalon AdvReac Mild Itching Verified 06/23/25 06:14 Perles) Family History Brother CAD (coronary artery disease), Onset Age: 70 CABG Other Alcoholism Arthritis Asthma Heart disease Hyperlipemia Hypertension Surgical History Hx of colonoscopy Hx of colonoscopy Status post left foot surgery Hx of shoulder surgery History of hysterectomy History of foot surgery History of back surgery Status post trigger finger release History of carpal tunnel surgery History of rotator cuff surgery Social History Smoking Status: Former smoker Tobacco: How many years used: 40 Electronic Cigarette Use: with nicotine second hand exposure: Yes quit status: considering quitting alcohol intake: former substance use type: does not use what type of physical activity do you participate in: walking Review of Systems (Anesthesia) ROS Narrative System reviewed and no additional complaints, except as documented.
--- NOTE | 2025-06-23 07:23 | PCM.HP.BLA ---
History and Physical Date of Admission: 06/23/25 MR#: [id number] Acct: [id number] Name: LELE ABDUL Rep #: [id number] : [id number] Provider: Dr. Terrell Chow MD Age/Sex: 70/F [place] [facility] [place]: Signed Intake Vital Signs 03/11/2509:45 06/12/2513:32 06/17/2514:35 Height 4 ft 10 in 4 ft 10 in 4 ft 10 in Weight: 137 lb BMI 28.6 Intake Visit Reasons: lumbar spine Chief Complaint: Lumbar spine pre op Accompanied by: Daughter Is patient in pain?: Yes Pain scale (1-10): 9 Allergies Penicillins Allergy (Mild, Verified 06/12/25 13:28) Hives adhesive tape Adverse Reaction (Severe, Verified 06/12/25 13:28) Rash, itchy, raw acetaminophen (From Percocet) Adverse Reaction (Intermediate, Verified 06/12/25 13:28) insomnia oxycodone (From Percocet) Adverse Reaction (Intermediate, Verified 06/12/25 13:28) insomnia benzonatate (From Tessalon Perles) Adverse Reaction (Mild, Verified 06/12/25 13:28) Itching Medications ?Medication ?Instructions ?Recorded ?Confirmed ?Type blood pressure monitor (Blood #1 ea 09/30/20 06/17/25 Rx Pressure Kit) omeprazole 40 mg capsule,delayed 40 mg PO DAILY GERD #90 caps 12/15/22 06/17/25 Rx release albuterol sulfate 90 mcg/actuation 2 puff inhalation Q6H PRN 02/23/23 06/17/25 Rx aerosol inhaler (ProAir HFA) shortness of breath or wheezing #8.5 grams Handicap Placard #1 ea 07/26/23 06/17/25 Rx amlodipine 10 mg tablet 10 mg PO DAILY BP #90 tabs 09/13/23 06/17/25 Rx 3 mL syringe with 1 inch 25-gauge #6 ea 10/24/24 06/17/25 Rx needle acyclovir 400 mg tablet 400 mg PO MOWEFR HPV 11/12/24 06/17/25 History alendronate 70 mg tablet 70 mg PO QWEEK BONE HEALTH 11/12/24 06/17/25 History methylphenidate HCl 30 mg biphasic 30 mg PO BID ADHD 11/12/24 06/17/25 History 50-50 capsule,extended release Symbicort 160 mcg-4.5 2 inh inhalation BID ASTHMA #10.2 12/18/24 06/17/25 Rx mcg/actuation HFA aerosol inhaler grams (budesonide-formoterol) pregabalin 150 mg capsule 150 mg PO TID RA 12/19/24 06/17/25 History valsartan 320 mg tablet 320 mg PO DAILY BP 12/29/24 06/17/25 History aspirin 81 mg tablet 81 mg PO QDAY BLOOD THINNER 02/10/25 06/17/25 History leflunomide 20 mg tablet 20 mg PO QDAY RA 02/10/25 06/17/25 History albuterol sulfate 2.5 mg/3 mL 2.5 mg (3 mL) inhalation Q4H PRN 02/26/25 06/17/25 Rx (0.083 %) solution for nebulization Sob &/Or Wheezing #180 mL brexpiprazole 0.5 mg tablet 0.5 mg PO QHS ANTIDEPRESSANT 03/04/25 06/17/25 History (Rexulti) linaclotide 72 mcg capsule 72 mcg PO MOWEFR CONSTIPATION 03/04/25 06/17/25 History prednisone 5 mg tablet 5 mg PO QDAY PRN RA 03/04/25 06/17/25 History dextromethorphan IR 45 1 tab PO DAILY ANTIDEPRESSANT 06/09/25 06/17/25 History mg-bupropion ER 105 mg biphasic tablet (Auvelity) ergocalciferol (vitamin D2) 1,250 1,250 mcg PO QMONTH SUPPLEMENT 06/09/25 06/17/25 History mcg (50,000 unit) capsule (Vitamin D2) furosemide 40 mg tablet 40 mg PO DAILY DIUERTIC 06/09/25 06/17/25 History pravastatin 40 mg tablet 40 mg PO MOWEFR CHOLESTEROL 06/09/25 06/17/25 History spironolactone 25 mg tablet 25 mg PO DAILY BP 06/09/25 06/17/25 History (Aldactone) calcium 600 mg (as carbonate)-vit 1 tab PO QDAY 06/12/25 06/17/25 History D3 10 mcg (400 unit) chewable tablet (Calcium 600 with Vitamin D3) propranolol 20 mg tablet 20 mg PO BID TREMORS #60 tabs 06/12/25 06/17/25 Rx tizanidine 4 mg tablet 4 mg PO QHS PRN muscle 06/13/25 06/17/25 Rx spasticity/muscle pain/insomnia #90 tabs Have you fallen in the past year?: No PFSH Medical History History of trigger finger History of Holter monitoring Impingement of right shoulder Primary osteoarthritis, right shoulder Right shoulder pain Vapes nicotine containing substance Osteoarthritis Lumbar radiculopathy Impacted cerumen of both ears Wears glasses High cholesterol Former smoker Hypertension History of echocardiogram History of stress test Cardiology follow-up encounter Vitamin deficiency Chronic constipation Borderline type 2 diabetes mellitus Alcohol use disorder in remission Depression, unspecified ADHD Heat intolerance Osteopenia with high risk of fracture Smoking greater than 40 pack years Tremor Nicotine dependence, cigarettes, uncomplicated Insomnia CARBAJAL (dyspnea on exertion) Shortness of breath Abnormal EKG AA (alcohol abuse) COVID-19 vaccine series completed Essential hypertension Acute low back pain ADD (attention deficit disorder) Back pain Jaw swelling Low back pain due to bilateral sciatica Tobacco use disorder, continuous Encounter for screening for malignant neoplasm of lung in current smoker with 30 pack year history or greater Post-menopausal Eosinophilia Abnormal bruising Hay fever Fatigue Spinal cord stimulator status Overweight GERD (gastroesophageal reflux disease) Rheumatoid arthritis Primary osteoarthritis of left hip Vitamin D deficiency Anxiety and depression Rheumatoid arthritis Neuropathy Hyperlipemia Chronic bronchitis Cataracts, bilateral Asthma History of alcohol abuse Seasonal allergies Unilateral primary osteoarthritis, right hip Spondylosis of 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 myelopathy or radiculopathy Spinal stenosis of lumbosacral region Radiculopathy of lumbosacral region Degeneration, intervertebral disc, lumbosacral Surgical History Hx of colonoscopy Hx of colonoscopy Status post left foot surgery Hx of shoulder surgery History of hysterectomy History of foot surgery History of back surgery Status post trigger finger release History of carpal tunnel surgery History of rotator cuff surgery Family History Brother CAD (coronary artery disease), Onset Age: 70 CABG Other Alcoholism Arthritis Asthma Heart disease Hyperlipemia Hypertension Social History Smoking Status: Former smoker Tobacco: How many years used: 40 Electronic Cigarette Use: with nicotine second hand exposure: Yes quit status: considering quitting alcohol intake: former substance use type: does not use what type of physical activity do you participate in: walking HPI lumbar spine Details: This documentation accurately reflects the service provided and the decisions made by me, Dr. Terrell Chow MD 06/17/25 [id number]. Part of today?s visit was documented by Galina Redman MA, acting as scribe. LELE ABDUL is a 70 year old F here today for lumbar spine pre op. Patient states that her pain is a 9 today. She wouldl jorge to discuss more about the surgery like the procedure. Wants to know what will happen after the surgery. The patient is a 70-year-old female presenting with preparation for spinal surgery. She has a history of sciatica, which manifests as pain starting from the lower back and radiating down the back of the legs, exacerbated by prolonged sitting and relieved by standing or walking. The patient reports difficulty walking long distances due to pain, which has progressively worsened over time. The patient has a history of nicotine dependence, which initially led to a denial of insurance coverage for her surgery. The patient has been cleared for surgery with no cardiac issues, as confirmed by a recent stress test reviewed by Dr. Hernandez. She is not on any blood thinners and has no history of diabetes, which are positive factors for her surgical outcome. - Musculoskeletal: Reports sciatica with pain radiating down the back of the legs, difficulty walking long distances, and pain exacerbated by sitting. - Cardiovascular: Denies any cardiac issues or history of seeing a senior business objects developer. - Hematologic: Denies use of blood thinners. - Endocrine: Denies history of diabetes. Attestation: Documentation on this patient encounter was supported using ambient scribe technology/ voice AI technology. The patient consented to recording for the purpose of documenting the encounter. Provider reviewed content of the generated note prior to signature. 01/28/25: LELE ABDUL is a 69 year old F here today for follow-up on her lumbar spine. She has some questions today after seeing Dr. Chow on 12/19/24. She states that she would like to go ahead and be put on the surgery schedule. The patient does see Dr. Herrera with pulmonology. HPI from 01/22/25: LELE ABDUL is a 69 year old F here today for lumbar spine MRI review. Patient had an injection with Dr. Walton and had her follow-up with him yesterday and states she got about 45% relief from that. She states the pain is not as bad but it is still there. She states walking is pretty difficult and causes her a lot of pain. She states that she did have her pain stimulator adjusted but one of her lead did move out of its original place after she has the recent episode of sciatic pain. Dr. Walton did go in surgically to fix the placement of the lead at the surgery center.Her leg pain is over her lateral and posterior thighs. 11/13/2024: LELE ABDUL is a 69 year old F here today for lumbar spine pain. This worsened in July. Patient was sitting at the movies. After sitting she stood up and was having pain in the lower back. She went to Dr. Walton and got a caudal injection 10/16/2024. The injection didn't help. Patient is schedule for a epidural on 12/04/2024. She has tried both ice and heat and gave some relief. She had back surgery in 2017 for L4 and L5. Denies any physical therapy, but has seen a chiropractor. Patient saw her chiropractor last night and felt a little better. Her balance is okay. Sometimes when walking both of her knees buckle. She will also get pain that goes to the back of her left knee. Left is worse than right and pain comes down the back of the legs. Left left goes to the back of her knee. L4-4 fusion in 2016 at [facility]. She saw Dr. Chow in April 2024 but no MRI was ordered at that time. HPI from Dr. Chow 05/03/24: LLEE ABDUL is a 68 year old F here today for low back pain. Pt. has seen Dr. Thompson in the past for low back pain but it has worsened. She states she has an intense deep ache in her bilateral glutes and hamstrings when she first gets out of bed in the mornings. She states it is so severe that she feels like she is going to fall. She states she had a recent lumbar MRI at [facility]. She had a lumbar fusion in 2016. She also apparently had a decompression procedure which she says was after her fusion likely in 2019. She also underwent a spinal cord stimulator placement in 2019 as well. At that time she was having left back pain that went down her thigh. Says that surgeries did not resolve that pain. She has been getting steroid injections from Dr. Ly but they are no longer effective. She has done PT at [facility] as well. She has a history of drop foot of her L foot. She also has issues with her spinal cord stimulator with issues with a lead. Ortho Exam General General: Yes no acute distress Neurologic: Yes alert and Yes oriented x3 Psychologic: Yes reasonable and appropriate Spine SPINE TESTING CERVICAL THORACIC LUMBAR Musculoskeletal Strength 0=absent - 5=normal Details: Physical examination of the back shows well healed midline and left paramedian surgical scars. Neurological exam of the lower extremities shows 5x5 power. No midline or paraspinal tenderness. Coding Level of Care Code Off vis,est,level 4 Diagnoses Spinal stenosis of lumbar region with neurogenic claudication M48.062 Lumbar adjacent segment disease with spondylolisthesis M51.36; M43.16 Spinal cord stimulator status Z96.89 Time Spent (min) 35 Assessment and Plan Assessment and Plan (1) Spinal stenosis of lumbar region with neurogenic claudication: Status: Acute (2) Lumbar adjacent segment disease with spondylolisthesis: Status: Acute (3) Spinal cord stimulator status: Status: Acute Plan Reviewed patient's x-rays from November as well as MRI lumbar spine from 12/14/2024. Also reviewed DEXA scan done recently. DEXA scan suggest osteopenia. X-rays Show prior L4-5 fusion which is stable, adjacent segment degeneration with L3-4 spondylolisthesis with dynamic instability flexion-extension views. Patient has a spinal cord stimulator with one of the leads on the left side inferiorly located behind T12. MRI shows severe disc degeneration and stenosis at L3-4 and L2-3, due to adjacent segment above her prior L4-5 fusion. Significant facet diastases noticed. 1. Sciatica - The patient experiences pain radiating from the lower back down the legs, worsened by sitting and relieved by standing or walking. - Surgical intervention is planned to address the disc above the previous fusion. 2. Nicotine dependence - The patient has a history of smoking and is currently vaping. - Smoking cessation is advised to improve surgical outcomes and healing. 3. Spinal stenosis - Surgery is planned to address the disc above the previous fusion, with a focus on removing and replacing hardware to alleviate symptoms. - Avoid smoking and vaping to improve healing after surgery. - Engage in regular mobility exercises to aid recovery and prevent complications. - Follow postoperative care instructions, including attending follow-up appointments and physical therapy sessions. Explained imaging findings in detail. At this time the patient feels like she has exhausted all nonsurgical options and wishes to proceed with surgery. She has tried both physical therapy and injections in the past. I recommend L3-4 anterior posterior fusion with L3-5 revision posterior instrumentation and fusion. Discussed this procedure in detail and explained the risks, benefits and alternatives. The risks of surgery include but are not limited to infection, bleeding, injury to nerves or vessels, need for further surgery, ileus, vascular injury, visceral injury, DVT, pulmonary embolism, pneumonia, atelectasis, cardiopulmonary event, pseudoarthrosis, hardware failure, gait abnormality, adjacent segment degeneration. Discussed post-surgery restrictions in detail such as no bending, lifting, or twisting. Answered all questions to the patient?s satisfaction. Patient understands and agrees to proceed with surgery. Consent was signed. Follow up two weeks post operatively or sooner if pain, swelling, numbness or associated symptoms, or concerns develop. All questions answered. Patient in agreement of plan.
--- NOTE | 2025-06-23 07:30 | RAD_ITS ---
EXAM: XR Lumbosacral Spine, 4 or 5 Views CLINICAL INDICATION: 360 LUMBAR FUSION L3-4 ANTERIOR AND REVISION POSTERIOR L3- 4 AND L TECHNIQUE: Frontal, lateral and bilateral oblique views of the lumbar spine. COMPARISON: No relevant prior studies available. FINDINGS: A total of 9 fluoroscopic images were obtained. Total fluoroscopy time 108.3 seconds. Total radiation dose 55.32 mGy. RAD/L/S Spine Min 4 Views IMPRESSION: Fluoroscopic guidance was used intraoperatively. Please refer to operative not e for further details. Reading Location: [id number]
[2025-06-23] MEDS: Lidocaine 1% (5 ml sdv) 5 ML Vial IV (07:40)
[2025-06-23] MEDS: fentaNYL 100 MCG/2 ML Ampul IV (10:20)
[2025-06-23] MEDS: TRANEXAMIC ACID 1,000 MG/10 ML ML 2000 MG IV (11:31)
--- NOTE | 2025-06-23 12:21 | PCM.POST.ANE ---
Anesthesia: Postop Eval I Current Vital Signs Temperature: 97.4 F Pulse Rate: 70 Blood Pressure: 147/95 Respiratory Rate: 16 Pulse Ox: 100 Oxygen Delivery Method: Simple Mask Oxygen Flow Rate (L/min): 6 Assessment Airway patent: Yes Spontaneous unlabored respirations: Yes Mental status: Awake and Calm nausea: No Vomiting: No Anesthesia Complication: No Fluid Hydration Crystalloid volume administer (ml): 3,300 Total IV fluid infused: 3,300 Progress Note Anesthesia document: Postop Eval 1 completed: Yes
--- NOTE | 2025-06-23 12:43 | POSTOPAN2_ITS ---
Anesthesia Postop Eval I Sum Postop Eval Completion status Anesthesia document: Postop Eval 1 completed: Yes Anesthesia Postop Eval I Summary Anesthesia Postop Eval I Summary: Anesthesia Postop Eval I: Assessment Summary Airway patent Yes 06/23/25 12:22 [facility] [email or web address] Spontaneous unlabored Yes 06/23/25 12:22 [facility] ATTENDANT.[email or web address] respirations Mental status Awake,Calm 06/23/25 12:22 [facility] ATTENDANT.[email or web address] nausea No 06/23/25 12:22 [facility] ATTENDANT.[email or web address] Vomiting No 06/23/25 12:22 [facility] ATTENDANT.[email or web address] Anesthesia Postop Eval I: Fluid Summary Crystalloid volume administer 3,300 06/23/25 12:22 [facility] ATTENDANT.[email or web address] (ml) Colloids volume administered ( ml) Blood Product volume administered (ml) Total IV fluid infused 3,300 06/23/25 12:22 [facility] ATTENDANT.[email or web address] Anesthesia Postop Eval I: Summary Notes Anesthesia Complication No 06/23/25 12:22 [facility] ATTENDANT.CHRISOBWilliam Anesthesia Complication Comment: Post-operative progress note Anesthesia: Postop Eval II Evaluation Mental status: Awake Pain Level: 0 nausea: No Vomiting: No
--- NOTE | 2025-06-23 12:43 | PCM.POSTANE2 ---
Anesthesia Postop Eval I Sum Postop Eval Completion status Anesthesia document: Postop Eval 1 completed: Yes Anesthesia Postop Eval I Summary Anesthesia Postop Eval I Summary: Anesthesia Postop Eval I: Assessment Summary Airway patent Yes 06/23/25 12:22 CLOTH [email or web address] Spontaneous unlabored Yes 06/23/25 12:22 CLOTH [email or web address] respirations Mental status Awake,Calm 06/23/25 12:22 CLOTH [email or web address] nausea No 06/23/25 12:22 CLOTH [email or web address] Vomiting No 06/23/25 12:22 CLOTH [email or web address] Anesthesia Postop Eval I: Fluid Summary Crystalloid volume administer 3,300 06/23/25 12:22 CLOTH [email or web address].[email or web address] (ml) Colloids volume administered ( ml) Blood Product volume administered (ml) Total IV fluid infused 3,300 06/23/25 12:22 CLOTH [email or web address] Anesthesia Postop Eval I: Summary Notes Anesthesia Complication No 06/23/25 12:22 CLOTH LAYER.[email or web address] Anesthesia Complication Comment: Post-operative progress note Anesthesia: Postop Eval II Evaluation Mental status: Awake Pain Level: 0 nausea: No Vomiting: No
--- NOTE | 2025-06-23 15:17 | PCM.OPRPT ---
Procedures Musculoskeletal 20xxx-29xxx: Other Procedure See Report Operative Report (Standard) Operative Information Date of Procedure: 06/23/25 Pre-Operative Diagnosis: L3-4 spondylolisthesis, stenosis with neurogenic claudication, prior L4-5 fusion Post-Operative Diagnosis: Same Surgery/Procedure Performed: L3-4 oblique lumbar body fusion with anterior instrumentation at&t retailer sales consultant: Yes Wastewater Plant Operator: Jigna Haji Tasks completed by management assistant: Closing, Removing tissue, Hemostasis: Electrocautery and Retracting Type of Anesthesia: General RN Documented Start/Stop Times: Operation Date: 06/23/25 07:30 Case Time Into Pre-Op 06/23/25 05:44 Out of Pre-Op 06/23/25 07:29 Anesthesia Start 06/23/25 07:33 Into Room 06/23/25 07:33 Procedure Start 06/23/25 08:07 Procedure End 06/23/25 12:08 Anesthesia End 06/23/25 12:16 Out of Room 06/23/25 12:16 Into Recovery 06/23/25 12:18 Out of Recovery 06/23/25 14:42 Procedure Start Time: 08:07 Procedure Stop Time: 12:08 Select all DRAINS/GRAFTS/IMPLANTS that apply: Graft Graft details: Allograft cancellous chips, autologous iliac crest bone marrow aspirate and Implanted device Implanted device details: DePuy cougar lateral lumbar interbody cage?peek, 4 Web anterior 2 hole plate Estimated Blood Loss: 50 cc Specimen collected: No Description of surgery: Preoperative diagnosis: L3-4 spondylolisthesis, stenosis with neurogenic claudication, prior L4-5 fusion Postoperative diagnosis: Same Name of procedures L3-4 oblique lumbar interbody fusion (OLIF) with anterior instrumentation, minimally invasive left sided approach, lateral decubitus: ? L3-4 anterolateral spinal fusion ? L3-4 insertion of cage . L3-4 anterior instrumentation 07180 ? Bone graft aspirate left iliac crest separate incision ? Allograft cancellous chips Attending Surgeon: Dr. Terrell Chow Estimated blood loss: 50 mL Anesthesia: General Complications: None Indications: Patient is a 70-year-old pleasant lady who has had a long history of low back pain and lower extremity radiation, difficulty walking distances. Xrays & MRI revealed prior L4-5 fusion, L3-4 adjacent segment degeneration with spondylolisthesis and stenosis. After undergoing a prolonged period of nonoperative treatment, the patient elected to undergo surgical decompression & fusion. All surgical options were discussed with the patient including anterior and posterior approaches. All risks and benefits associated with the procedure were explained to the patient. The risks include but are not limited to infection, bleeding, injury to nerves and vessels including major vessels like IVC and aorta, persistent paresthesia, persistent pain, dural tear, need for further procedures, adjacent segment degeneration, pseudoarthrosis, hardware failure, retrograde ejaculation, paralytic ileus, etc. Procedure: The patient was identified in the preoperative holding suite using Unique patient identifiers. Skin was marked, consent was reviewed, and all questions were answered. The patient was then brought back to the operative room. A surgical timeout was performed to make sure correct procedure was being done on the correct patient and all operative room staff were on the same page. General endotracheal anesthesia was then given to the patient. Flores catheter was inserted. The patient was then carefully positioned in right lateral decubitus position with the left side up on a regular OR table. Axillary roll was placed and all bony prominences were well- padded. Hip positioners were placed in the posterior buttocks and anterior sternal area. The surgical area was prepped and draped in usual fashion. Preoperative antibiotic was injected IV as preoperative antibiotic. A final timeout was then again done just before starting the procedure. A 2 inch incision oblique was taken in the left lower quadrant of the abdomen 2 fingerbreadths away from the iliac crest and the lower ribs. Sharp dissection with Bovie was carried out up to the fascia covering the external oblique. The external oblique, internal oblique and transversus abdominis muscles were split along the muscle fibers and retroperitoneal space was entered. Sponge sticks were utilized to move the bowel and peritoneum slt-aw-nmq-way and psoas muscle was exposed staying within the retroperitoneal plane. LightPath Appsframe retractor system was positioned and the retractor blade was applied onto the psoas. The interval between psoas and midline structures was developed and appropriate retractors were placed. Once adequate interval was cleared, a disc space was identified and a marker x-ray was taken. This identified the L3-4 disc level. Annulotomy was done with a long handled knife. Pituitary was used to remove disc material. Curettes were used to prepare the endplates. Disc space spreaders were utilized to distract and increase the disc height. Near complete discectomy was performed. Smaller disc distractors were also used to bluntly perform a contralateral annulotomy. Trials of serially increasing sizes were used. A Jamshidi needle was used to aspirate bone marrow from the left anterior iliac crest through a separate incision and this aspirate was mixed with the allograft bone chips. A Depuy Alberton cage of size of the 18 x 45 x 14 mm with 15 degrees lordosis was packed with corticocancellous allograft bone chips mixed with bone marrow aspirate. This was inserted into the L3-4 disc space. AP and lateral C-arm pictures were taken to confirm good position of the cage. Some bone chips were also packed around the cages. A 4Web two-hole plate with 35 mm screws into L3 and L4 bodies was used to provide anterior instrumentation. C-arm confirmed good positioning. Hemostasis was confirmed. The retractor blades were removed. Closure was done in layers with a continuous strand of # 1 Vicryl in all muscle layers. 2-0 Vicryl was used for subcutaneous tissue and 4-0 for Monocryl for the skin. Steri-Strips were applied and 4 x 4 gauze and Tegaderm were applied. Top Lift Cutter Jigna Haji PA-C. My physician buyer assistant was a vital part of this case. They were important in appropriate retraction during the case, and protection of soft tissues during the procedure. Their intimate knowledge of the case and my steps aided in safe and expedient completion of the procedure as well as appropriate position of the patient during the surgery. They were also vital in assisting with closure under my direct supervision. Surgical Findings: See operative note Complications Complications: No
--- NOTE | 2025-06-23 15:29 | PCM.OPRPT ---
Procedures Musculoskeletal [id number]: Other Procedure See Report Operative Report (Standard) Operative Information Date of Procedure: 06/23/25 Pre-Operative Diagnosis: L3-4 spondylolisthesis, stenosis with neurogenic claudication, prior L4-5 fusion Post-Operative Diagnosis: Same Surgery/Procedure Performed: L3-4 posterior spine instrumented fusion, removal of previous L4-5 hardware, exploration of fusion morphology teacher: Yes Consumer Insight Analyst: Jigna Haji Tasks completed by food and beverage assistant: Closing, Removing tissue, Implanting device, Hemostasis: Electrocautery and Retracting Type of Anesthesia: General RN Documented Start/Stop Times: Operation Date: 06/23/25 07:30 Case Time Into Pre-Op 06/23/25 05:44 Out of Pre-Op 06/23/25 07:29 Anesthesia Start 06/23/25 07:33 Into Room 06/23/25 07:33 Procedure Start 06/23/25 08:07 Procedure End 06/23/25 12:08 Anesthesia End 06/23/25 12:16 Out of Room 06/23/25 12:16 Into Recovery 06/23/25 12:18 Out of Recovery 06/23/25 14:42 Procedure Start Time: 08:07 Procedure Stop Time: 12:08 Select all DRAINS/GRAFTS/IMPLANTS that apply: Graft Graft details: Allograft cancellous chips and Implanted device Implanted device details: DePuy Viper prime pedicle screw instrumentation Estimated Blood Loss: 50 cc Specimen collected: No Description of surgery: Preoperative diagnosis: L3-4 spondylolisthesis, stenosis with neurogenic claudication, prior L4-5 fusion Postoperative diagnosis: Same Name of procedures: L3-4 posterior percutaneous pedicle screw instrumented fusion, removal of previous L4-5 instrumentation, exploration of fusion, prone: ? L3-4 posterior spinal fusion 69601 ? L3-4 posterior pedicle screw instrumentation [id number] ? Removal of previous L4-5 pedicle screw instrumentation 79179 . Exploration of previous L4-5 fusion 18334 ? Allograft cancellous chips [id number] Attending Surgeon: Dr. Terrell Chow Estimated blood loss: 50 mL (total for entire case) Anesthesia: General Complications: None Description of procedure: After the anterior procedure was complete, the patient was then turned supine. The patient was then transferred to Lalo table in prone position. Back was prepped and draped in usual fashion. C-arm AP view was then taken. C-arm was positioned in a way that L3 was centralized and superior endplate of was parallel to the beam. Spinous process was centered between the pedicles. Midline was marked with skin marker and lateral borders of the pedicles were also marked. Skin marker was also utilized to alize transversely across the middle of the pedicles at L3. 2 transverse paramedian incisions of 1 inch were placed. The fascia was incised vertically. Finger dissection was utilized to palpate the transverse process and facet joint. Viper Prime screws with towers were inserted and docked onto the transverse processes. This was then slowly moved medially to reach the superior articular process of L3. This was then confirmed on C-arm and then a mallet was utilized to drive the trocar into the pedicle going up to the medial wall of the pedicle on AP view. This was performed both sides. C-arm lateral view confirmed that the tip of the trocar was in the vertebral body, and the screw was advanced into the pedicle and vertebral body. Screw sizes were 7 x 50 mm at L3. L4 and L5 pedicle screws were then targeted through a vertical paramedian incision. Sequential tubes were placed in tubular retractor of 60 x 21 was utilized. L4 and L5 pedicle screws were exposed. Setscrews were removed using appropriate instrumentation. Adequate fusion was visible over the L4-5 segment. Bone had also grown on top of the L4 and L5 pedicle screws. This was carefully removed with the help of osteotomes to expose the setscrews. The rods also had to be exposed with the help of osteotomes to remove bone growing on top of it. Vidal varela was then utilized to remove the vidal. Pedicle screws were then removed at L4 and L5. Guidewire was placed into the L4 pedicle and a new Viper prime screw of 7 x 50 was placed into L4. This was done both sides. 40 mm precontoured titanium 5.5 mm lordotic vidal on the right and 35 mm on the left were then passed through the L3 and L4 screw extensions and reduced down to the screws with the help of [employer] instrumentation system on both sides. AP and lateral view of the C-arm showed good positioning of the screws and cages. Final tightening with the torque screwdriver was then completed. Hawa was utilized to roughen the facet joint at L3-4 on the left side. Cancellous allograft bone chips mixed with bone marrow aspirate were then placed over this decorticated area. Hemostasis was achieved. Closure was done in layers with 0 Vicryls for the fascia, 2-0 Vicryls for the subcutaneous tissue, and Monocryl for the skin. Dermabond was applied. Dressings were applied covered with Tegaderm. The patient was then turned supine onto a hospital bed. The patient was extubated and taken to PACU in stable condition. The patient tolerated the procedure well and no complications occurred. Depuy [place] cage & Viper Prime minimally invasive pedicle screw instrumentation system was utilized in this case. No dural tear was identified intraoperatively. I was present for the entirety of the case and performed the surgery. Certified Health Education Specialist Jigna Haji PA-C. My physician pharmacy affairs assistant was a vital part of this case. They were important in appropriate retraction during the case, and protection of soft tissues during the procedure. Their intimate knowledge of the case and my steps aided in safe and expedient completion of the procedure as well as appropriate position of the patient during the surgery. They were also vital in assisting with closure under my direct supervision. Surgical Findings: See operative note Complications Complications: No
[2025-06-23] MEDS: 0.9% Normal Saline (250mL Bag) 250 ML 15 ML IV (15:41)
[2025-06-23] MEDS: Clindamycin 900 MG/50 ML BAG 75 MG IV ×2 (16:03→23:15)
--- OUTSIDE RECORDS SUMMARY | 2025-06-23 16:59 | XMS RPT_ITS | CCD ---
Author Organization [facility] Care Team Providers Care Mail Order Biller Name Role Phone Dr. Yady Vera Primary Care Provider [phone] Dr. Yady Vera Referring Provider [phone] Hudson SLOPE RUNNER, SLOPE RUNNER-C Lashell Attending Provider Dr. Yady Vera Attending Provider [phone] Dr. Buddy Herrera Attending Provider Dr. Buddy Herrera Referring Provider Dr. Buddy Herrera Other Provider Dr. Yady Vera Primary Care Provider [phone] Dr. Yady Vera Attending Provider [phone] Dr. Yady Vera Referring Provider [phone] Dr. Dre Hinojosa Attending Provider Kaz SLOPE RUNNER, SLOPE RUNNER-C Padmini Attending Provider Dr. Yady Vera Primary Care Provider [phone] Dr. Buddy Herrera Attending Provider Dr. Buddy Herrera Referring Provider Dr. Yady Vera Primary Care Provider [phone] Dr. Yady Vera Attending Provider [phone] Dr. Yady Vera Referring Provider [phone] Dr. Yady Vera Primary Care Provider [phone] Dr. Yady Vera Attending Provider [phone] Dr. Yady Vera Referring Provider [phone] DR SAPNA ASHLEY MD Primary Care Physician DION MCADAMS., DR. ALEJO Primary Care Unavailabl e ERICK BELL DO Attending Unavailable Yady Vera MD Primary Care Provider [phone] Yady Vera MD Primary Care Provider [phone] Roberts LUMBER BUYER, Se Primary Care Provider DAVID, WINNIE Referring Unavailable ROBERTS, SE Primary Care Unavailable DAVID, WINNIE Attending Unavailable BORDNER, DARON Referring Unavailable ROBERTS, SE Primary Care Unavailable DAVID, WINNIE Referring Unavailable ROBERTS, SE Primary Care Unavailable DAVID, WINNIE Attending Unavailable BORDNER, DARON Referring Unavailable ROBERTS, SE Primary Care Unavailable DAVID, WINNIE Referring Unavailable ROBERTS, SE Primary Care Unavailable DAVID, WINNIE Attending Unavailable BORDNER, DARON Referring Unavailable OLEGHE, KARYEWONGBE B Primary Care Unavailable ROBERTS, SE Primary Care Unavailable JOSEFA SERNA Attending Unavailable Roberts VSC, Se Primary Care Unavailable Borruso, Dre Referring Unavailable Borruso, Dre Attending Unavailable Roberts VSC, Se Primary Care Unavailable Roberts VSC, Se Referring Unavailable Rachel Hidalgo Attending Unavailable Kelechi Reyes Referring Unavailable Kelechi Reyes Attending Unavailable Roberts VSC, Se Primary Care Unavailable Chow, Terrell Referring Unavailable Chow, Terrell Admitting Unavailable Chow, Terrell Attending Unavailable Roberts VSC, Se Primary Care Unavailable Roberts VSC, Se Primary Care Unavailable Roberts VSC, Se Attending Unavailable Beam VSC, Zebulun Referring Unavailable Beam VSC, Zebulun Attending Unavailable Roberts VSC, Se Primary Care Unavailable Roberts VSC, Se Primary Care Unavailable Roberts VSC, Se Attending Unavailable David, Krystian Attending Unavailable David, Phoenix Referring Unavailable Roberts VSC, Se Primary Care Unavailable Roberts VSC, Se Primary Care Unavailable EfraKatherine odom Referring Unavailable Efra, Jayaprakas Attending Unavailable Roberts VSC, Se Primary Care Unavailable Beam VSC, Zebulun Attending Unavailable Roberts VSC, Se Primary Care Unavailable Mccurdy SLOPE RUNNER, Padmini Consulting Unavailable MollisonBrandon Referring Unavailable Brandon Narayan Attending Unavailable Amy, Kelecih Attending Unavailable Amy, Kelechi Referring Unavailable Roberts VSC, Se Primary Care Unavailable AdithyaTimyn Referring Unavailable Roberts VSC, Se Primary Care Unavailable Tim Hajiyn Attending Unavailable Roberts VSC, Se Primary Care Unavailable Estephania Reagan Attending Unavailable Roberts VSC, Se Primary Care Unavailable Ric Walton Referring Unavailable AntonRic Attending Unavailable Roberts VSC, Se Consulting Unavailable Roberts VSC, Se Primary Care Unavailable Kaz SLOPE RUNNER, Padmini Attending Unavailable Kaz SLOPE RUNNER, Padmini Referring Unavailable Roberts VSC, Se Primary Care Unavailable Terrell Chow Attending Unavailable Roberts VSC, Se Referring Unavailable Kelechi Reyes Attending Unavailable Amy, Kelechi Referring Unavailable Roberts VSC, Se Primary Care Unavailable Rachel Hidalgo Attending Unavailable Roberts VSC, Se Primary Care Unavailable Roberts VSC, Se Referring Unavailable BadKelechi haney Attending Unavailable Roberts VSC, Se Primary Care Unavailable Roberts VSC, Se Referring Unavailable BadKelechi haney Attending Unavailable Roberts VSC, Se Primary Care Unavailable Roberts VSC, Se Referring Unavailable Dre Ordaz Referring Unavailable Dre Ordaz Consulting Unavailable Dre Ordaz Attending Unavailable Roberts VSC, Se Primary Care Unavailable David, Phoenix Attending Unavailable David, Phoenix Referring Unavailable Roberts VSC, Se Primary Care Unavailable David, Krystian Consulting Unavailable Terrell Chow Consulting Unavailable Roberts VSC, Se Primary Care Unavailable Beam, Zebulun Z Referring Unavailable Jerald Morales Attending Unavailable Lashell Treviño NP Attending Unavailable Roberts VSC, Se Primary Care Unavailable Beam VSC, Zebulun Referring Unavailable Homa Mijares Attending Unavailable Roberts VSC, Se Primary Care Unavailable Roberts VSC, Se Primary Care Unavailable Amy, Kelechi Referring Unavailable Amy Kelechi Attending Unavailable Roberts VSC, Se Primary Care Unavailable Karmaso Dre Attending Unavailable Roberts VSC, Se Referring Unavailable Terrell Chow Attending Unavailable Roberts VSC, Se Referring Unavailable Roberts VSC, Se Primary Care Unavailable Roberts VSC, Se Primary Care Unavailable Mccurdy SLOPE RUNNER, Padmini Attending Unavailable Roberts VSC, Se Referring Unavailable Baddour, Kelechi Referring Unavailable Roberts VSC, Se Primary Care Unavailable Baddour, Kelechi Attending Unavailable Adithya, Jigna Attending Unavailable Roberts VSC, Se Primary Care Unavailable Roberts VSC, Se Referring Unavailable AdithyaBlaineJigna Attending Unavailable Roberts VSC, Se Primary Care Unavailable Roberts VSC, Se Referring Unavailable Roberts VSC, Se Primary Care Unavailable David, Krystian Attending Unavailable Rachel Hidalgo Attending Unavailable Roberts VSC, Se Primary Care Unavailable Roberts VSC, Se Referring Unavailable Roberts VSC, Se Primary Care Unavailable Lashell Treviño NP Attending Unavailable Roberts VSC, Se Primary Care Unavailable Mccurdy SLOPE RUNNER, Padmini Referring Unavailable Buddy Herrera Attending Unavailable Roberts VSC, Se Primary Care Unavailable Mccurdy SLOPE RUNNER, Padmini Referring Unavailable Mccurdy SLOPE RUNNER, Padmini Consulting Unavailable Buddy Herrera Attending Unavailable Roberts VSC, Se Primary Care Unavailable Baddour, Kelechi Referring Unavailable Baddour, Kelechi Attending Unavailable Roberts VSC, Se Primary Care Unavailable David, Krystian Attending Unavailable Roberts VSC, Se Primary Care Unavailable David, Krystian Attending Unavailable Brandon Narayan Attending Unavailable Roberts VSC, Se Primary Care Unavailable Roberts VSC, Se Referring Unavailable Roberts VSC, Se Primary Care Unavailable David, Krystian Attending Unavailable Beam VSC, Zebulun Attending Unavailable Roberts VSC, Es Primary Care Unavailable Mccurdy SLOPE RUNNER, Padmini Attending Unavailable Beam VSC, Zebulun Referring Unavailable Beam VSC, Zebulun Attending Unavailable Roberts VSC, Se Primary Care Unavailable Roberts VSC, Se Primary Care Unavailable Mccurdy SLOPE RUNNER, Padmini Referring Unavailable Mccurdy SLOPE RUNNER, Padmini Attending Unavailable Roberts VSC, Se Primary Care Unavailable Terrell Chow Attending Unavailable Terrell Chow Referring Unavailable MARYANNE, XIAOYING Referring Unavailable Roberts VSC, Se Primary Care Unavailable MARYANNE, XIAOYING Attending Unavailable David, Krystian Attending Unavailable David, Krystian Referring Unavailable Roberts VSC, Se Primary Care Unavailable Adithya, Jigna Referring Unavailable Adithya Jigna Attending Unavailable Roberts VSC, Se Primary Care Unavailable Dre Ordaz Attending Unavailable Roberts VSC, Se Primary Care Unavailable Roberts VSC, Se Referring Unavailable Roberts VSC, Se Primary Care Unavailable Kaz SLOPE RUNNER, Padmini Attending Unavailable Kaz SLOPE RUNNER, Padmini Referring Unavailable Roberts VSC, Se Primary Care Unavailable Kaz SLOPE RUNNER, Padmini Attending Unavailable Roberts VSC, Se Referring Unavailable Kelechi Reyes Attending Unavailable Roberts VSC, Se Primary Care Unavailable Roberts VSC, Se Referring Unavailable Roberts VSC, Se Primary Care Unavailable Terrell Chow Attending Unavailable Roberts VSC, Se Referring Unavailable Rachel Hidalgo Attending Unavailable Hidalgo, Rachel Referring Unavailable Roberts VSC, Se Primary Care Unavailable Roberts VSC, Se Primary Care Unavailable Brandon Medina Referring Unavailable Brandon Medina Attending Unavailable Noel Coleman Consulting Unavailable Kay Chowag Attending Unavailable Chow, Terrell Referring Unavailable Chow Terrell Admitting Unavailable Allergies Allergy Classification Reported Allergen(s) Allergy Type Date of Onset Reaction(s) Facility (8 sources) Acetaminophen Drug Allergy 11-27-19 22 insomnia [facility] Work Phone: (20 sources) benzonatate; Translations: [benzonatate] Drug Allergy 05-03-20 19 Rash [facility] (20 sources) oxyCODONE; Translations: [OXYCODONE] Drug Allergy 11-04-19 22 Other: See Comments [facility] Work Phone: (20 sources) Penicillins; Translations: [PENICILLINS] Allergy to [facility] (6 sources) Adhesive Tape; Translations: [adhesive tape] Propensity to adverse reactions 01-27-20 22 Rash, itchy, raw [facility] Repository (1 source) Penicillin; Translations: [penicillins] Drug Allergy [facility] (11 sources) Latex; Translations: [LATEX] Drug Intolerance 11-09-19 23 Rash [facility] Work Phone: (1 source) Acetaminophen Drug Allergy 06-23-20 [facility] Repository (1 source) benzonatate Drug Allergy 06-23-20 [facility] Repository (1 source) oxyCODONE Drug Allergy 06-23-20 [facility] Repository Medications Current Medications Medication Drug [...] above: Take 400 mg by mouth . [id number] 200 actuat albuterol 0.09 mg/actuat metered dose [...] PUFF INHALATION Q12H 10.2 January 20, 2021 8:34am August 24, 2021 [...] oral tablet (1 source) Muscle Relaxant Start: End: take 1 tablet by mouth every [...] Comment on above: Take 1 capsule by [facility] once daily. Administer on an empty [...] Active Start: 09-20-2024 take 1 capsule by [facility] once daily in the morning methylphenidate CD (METADATE CD) 60 mg biphasic capsule Take 60 mg by mouth every morning. 09/20/2024 Active KORIN CONTRERAS, 100 % drop (6 sources) Start: 11-18-2024 [...] 1 tablet by [facility] once daily multivitamin,[id number]-gulh-[id number] Active 1 T ABLET PO DAILY April 20, 2020 11:00pm Start: 04-21-2020 take 1 tablet by [facility] once daily multivitamin,jo-ophs-wofoezxl Active 1 T ABLET PO DAILY April [...] Discontinued 0 PO per package directions 53 Esau 11th, 2019 12:00am September 23, 2019 9:37am PO [...] End: 04-21-2020 Azithromycin Discontinued 0 PO .COMPLEX April 07, 2020 11:00pm April 21, 2020 [...] Comment on above: Take 1 capsule by [facility] once daily. 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; Translations: [Personal history of other diseases [...] radiculopathy, lumbosacral region] Onset: 05-07-2019 05-07-2019 Chronic Spondylosis; intervertebral disc disorders; other back problems (20 sources) Low back pain co-occurrent and due to bilateral sciatica; Translations: [Lumbago with sciatica, right side] Onset: 05-07-2019 05-21-2019 Episodic Sprains and strains (8 sources) Strain of [...] of nicotine dependence] Onset: 05-03-2019 05-03-2019 Episodic Unclassified (2 sources) Abrasion, left knee, initial encounter Results Test Name Value Interpretation Reference Range Facility Bedside Glucoseon 06-23-2025 FINGERSTICK GLU 112 mg/dL High 74-106 [facility] Comment on above: Result Comment: FELIPE MORALES OF PATIENT CARE PER NURSING PROTOCOL Performed By: #### L 501.080 ####[facility] [id number] [facility] [place], [address] CBC W Auto Differential pane l (Bld)on 06-20-2025 Basophils (Bld) [#/Vol] 0.10 10*3/uL Normal <0.11 [facility] Comment on above: Order Comment: Speci men Type: BLOOD SPECIMEN Ordering Facility: [facility] Address: [address] [place] [address] Performed By: #### 1 988-5 #### [facility] CLIA [id number] [address] [place] [address] [place] [address] [place] Basophils/100 WBC (Bld) 1.5 % Normal [facility] Comment on above: Order Comment: Speci men Type: BLOOD SPECIMEN Ordering Facility: [facility] Address: [address] [place] [address] Performed By: #### 1 988-5 #### [facility] CLIA [id number] [address] [place] [address] [place] Differential cell count method Nom (Bld) Auto Normal [facility] Comment on above: Order Comment: Speci men Type: BLOOD SPECIMEN Ordering Facility: [facility] Address: [address] [place] [address] Performed By: #### 1 988-5 #### [facility] CLIA [id number] [address] [place] [address] [place] Eosinophils (Bld) [#/Vol] 1.32 10*3/uL High <0.46 [facility] Comment on above: Order Comment: Speci men Type: BLOOD SPECIMEN Ordering Facility: [facility] Address: [address] [place] [address] Performed By: #### 1 988-5 #### [facility] CLIA [id number] [address] [place] [address] [place] Eosinophils/100 WBC (Bld) 20.4 % Normal [facility] Comment on above: Order Comment: Speci men Type: BLOOD SPECIMEN Ordering Facility: [facility] Address: [address] [place] [address] Performed By: #### 1 988-5 #### [facility] CLIA [id number] [address] [place] [address] [place] Erythrocyte distribution width (RBC) [Ratio] 13.7 % Normal 11.5-15.0 [facility] Comment on above: Order Comment: Speci men Type: BLOOD SPECIMEN Ordering Facility: [facility] Address: [address] [place] [address] Performed By: #### 1 988-5 #### [facility] CLIA [id number] [address] [place] [address] [place] Hematocrit (Bld) [Volume fraction] 41.0 % Normal 36.0-46.0 [facility] Comment on above: Order Comment: Speci men Type: BLOOD SPECIMEN Ordering Facility: [facility] Address: [address] [place] [address] Performed By: #### 1 988-5 #### [facility] CLIA [id number] [address] [place] [address] [place] Hemoglobin (Bld) [Mass/Vol] 12.9 g/dL Normal 11.5-15.5 [facility] Comment on above: Order Comment: Speci men Type: BLOOD SPECIMEN Ordering Facility: [facility] Address: [address] [place] [address] Performed By: #### 1 988-5 #### [facility] CLIA [id number] [address] [place] [address] [place] Immature granulocytes (Bld) [#/Vol] 10*3/uL Normal <0.10 [facility] Comment on above: Order Comment: Speci men Type: BLOOD SPECIMEN Ordering Facility: [facility] Address: [address] [place] [address] Performed By: #### 1 988-5 #### [facility] CLIA [id number] [address] [place] [address] [place] Immature granulocytes/100 WBC (Bld) 0.2 % Normal [facility] Comment on above: Order Comment: Speci men Type: BLOOD SPECIMEN Ordering Facility: [facility] Address: [address] [place] [address] Performed By: #### 1 988-5 #### [facility] CLIA [id number] [address] [place] [address] [place] Lymphocytes (Bld) [#/Vol] 1.90 10*3/uL Normal 1.00-4.00 [facility] Comment on above: Order Comment: Speci men Type: BLOOD SPECIMEN Ordering Facility: [facility] Address: [address] [place] [address] Performed By: #### 1 988-5 #### [facility] CLIA [id number] [address] [place] [address] [place] Lymphocytes/100 WBC (Bld) 29.3 % Normal [facility] Comment on above: Order Comment: Speci men Type: BLOOD SPECIMEN Ordering Facility: [facility] Address: [address] [place] [address] Performed By: #### 1 988-5 #### [facility] CLIA [id number] [address] [place] [address] [place] MCH (RBC) [Entitic mass] 28.4 pg Normal 26.0-34.0 [facility] Comment on above: Order Comment: Speci men Type: BLOOD SPECIMEN Ordering Facility: [facility] Address: [address] [place] [address] Performed By: #### 1 988-5 #### [facility] CLIA [id number] [address] [place] [address] [place] MCHC (RBC) [Mass/Vol] 31.5 g/dL Normal 30.5-36.0 [facility] Comment on above: Order Comment: Speci men Type: BLOOD SPECIMEN Ordering Facility: [facility] Address: [address] [place] [address] Performed By: #### 1 988-5 #### [facility] CLIA [id number] [address] [place] [address] [place] MCV (RBC) [Entitic vol] 90.1 fL Normal 80.0-100.0 [facility] Comment on above: Order Comment: Speci men Type: BLOOD SPECIMEN Ordering Facility: [facility] Address: [address] [place] [address] Performed By: #### 1 988-5 #### [facility] CLIA [id number] [address] [place] [address] [place] Monocytes (Bld) [#/Vol] 0.53 10*3/uL Normal <0.87 [facility] Comment on above: Order Comment: Speci men Type: BLOOD SPECIMEN Ordering Facility: [facility] Address: [address] [place] [address] Performed By: #### 1 988-5 #### [facility] CLIA [id number] [address] [place] [address] [place] Monocytes/100 WBC (Bld) 8.2 % Normal [facility] Comment on above: Order Comment: Speci men Type: BLOOD SPECIMEN Ordering Facility: [facility] Address: [address] [place] [address] Performed By: #### 1 988-5 #### [facility] CLIA [id number] [address] [place] [address] [place] Neutrophils (Bld) [#/Vol] 2.62 10*3/uL Normal 1.45-7.50 [facility] Comment on above: Order Comment: Speci men Type: BLOOD SPECIMEN Ordering Facility: [facility] Address: [address] [place] [address] Performed By: #### 1 988-5 #### [facility] CLIA [id number] [address] [place] [address] [place] Neutrophils/100 WBC (Bld) 40.4 % Normal [facility] Comment on above: Order Comment: Speci men Type: BLOOD SPECIMEN Ordering Facility: [facility] Address: [address] [place] [address] Performed By: #### 1 988-5 #### [facility] CLIA [id number] [address] [place] [address] [place] Nucleated RBC (Bld) [#/Vol] 10*3/uL Normal <0.01 [facility] Comment on above: Order Comment: Speci men Type: BLOOD SPECIMEN Ordering Facility: [facility] Address: [address] [place] [address] Performed By: #### 1 988-5 #### [facility] CLIA [id number] [address] [place] [address] [place] Nucleated RBC/100 WBC (Bld) [Ratio] 0.0 /100 WBC Normal [facility] Comment on above: Order Comment: Speci men Type: BLOOD SPECIMEN Ordering Facility: [facility] Address: [address] [place] [address] Performed By: #### 1 988-5 #### [facility] CLIA [id number] [address] [place] [address] [place] Platelet mean volume (Bld) [Entitic vol] 11.7 fL Normal 9.0-12.7 [facility] Comment on above: Order Comment: Speci men Type: BLOOD SPECIMEN Ordering Facility: [facility] Address: [address] [place] [address] Performed By: #### 1 988-5 #### [facility] CLIA [id number] [address] [place] [address] [place] Platelets (Bld) [#/Vol] 256 10*3/uL Normal 150-400 [facility] Comment on above: Order Comment: Speci men Type: BLOOD SPECIMEN Ordering Facility: [facility] Address: [address] [place] [address] Performed By: #### 1 988-5 #### [facility] CLIA [id number] [address] [place] [address] [place] RBC (Bld) [#/Vol] 4.55 10*6/uL Normal 3.90-5.20 [facility] Comment on above: Order Comment: Speci men Type: BLOOD SPECIMEN Ordering Facility: [facility] Address: [address] [place] [address] Performed By: #### 1 988-5 #### [facility] CLIA [id number] [address] [place] [address] [place] WBC (Bld) [#/Vol] 6.48 10*3/uL Normal 3.70-11.00 [facility] Comment on above: Order Comment: Speci men Type: BLOOD SPECIMEN Ordering Facility: [facility] Address: [address] [place] [address] Performed By: #### 1 988-5 #### [facility] CLIA [id number] [address] [place] [address] [place] CRP SerPl-mCncon 06-20-2025 CRP [Mass/Vol] mg/L Normal <0.9 [facility] Comment on above: Order Comment: Speci men Type: BLOOD SPECIMEN Ordering Facility: [facility] Address: [address] [place] [address] Performed By: #### 1 988-5 #### [facility] CLIA [id number] [address] [place] [address] [place] Comprehensive metabolic 2000 panelon 06-20-2025 Albumin [Mass/Vol] 4.1 g/dL Normal 3.9-4.9 [facility] Comment on above: Order Comment: Speci men Type: BLOOD SPECIMEN Ordering Facility: [facility] Address: [address] [place] [address] Performed By: #### 1 988-5 #### [facility] CLIA [id number] [address] [place], [place] [id number] [place] ALP [Catalytic activity/Vol] 71 U/L Normal 34-123 [facility] Comment on above: Order Comment: Speci men Type: BLOOD SPECIMEN Ordering Facility: [facility] Address: [address] [place] [address] Performed By: #### 1 988-5 #### [facility] CLIA [id number] [address] [place] [place] [id number] [place] ALT [Catalytic activity/Vol] 38 U/L Normal 7-38 [facility] Comment on above: Order Comment: Speci men Type: BLOOD SPECIMEN Ordering Facility: [facility] Address: [address] [place] [address] Performed By: #### 1 988-5 #### [facility] CLIA [id number] [address] [place], [place] [id number] [place] Anion gap [Moles/Vol] 13 mmol/L Normal 8-15 [facility] Comment on above: Order Comment: Speci men Type: BLOOD SPECIMEN Ordering Facility: [facility] Address: [address] [place] [address] Performed By: #### 1 988-5 #### [facility] CLIA [id number] [address] [place] [address] [place] AST [Catalytic activity/Vol] 86 U/L High 13-35 [facility] Comment on above: Order Comment: Speci men Type: BLOOD SPECIMEN Ordering Facility: [facility] Address: [address] [place] [address] Performed By: #### 1 988-5 #### [facility] CLIA [id number] [address] [place] [address] [place] Bilirubin [Mass/Vol] 0.3 mg/dL Normal 0.2-1.3 [facility] Comment on above: Order Comment: Speci men Type: BLOOD SPECIMEN Ordering Facility: [facility] Address: [address] [place] [address] Performed By: #### 1 988-5 #### [facility] CLIA [id number] [address] [place] [address] [place] Calcium [Mass/Vol] 9.7 mg/dL Normal 8.5-10.2 [facility] Comment on above: Order Comment: Speci men Type: BLOOD SPECIMEN Ordering Facility: [facility] Address: [address] [place] [address] Performed By: #### 1 988-5 #### [facility] CLIA [id number] [address] [place] [address] [place] Chloride [Moles/Vol] 107 mmol/L Normal 98-107 [facility] Comment on above: Order Comment: Speci men Type: BLOOD SPECIMEN Ordering Facility: [facility] Address: [address] [place] [address] Performed By: #### 1 988-5 #### [facility] CLIA [id number] [address] [place] [address] [place] CO2 [Moles/Vol] 21 mmol/L Low 22-30 [facility] Comment on above: Order Comment: Speci men Type: BLOOD SPECIMEN Ordering Facility: [facility] Address: [address] [place] [address] Performed By: #### 1 988-5 #### [facility] CLIA [id number] [address] [place] [address] [place] Creatinine [Mass/Vol] 0.80 mg/dL Normal 0.58-0.96 [facility] Comment on above: Order Comment: Speci men Type: BLOOD SPECIMEN Ordering Facility: [facility] Address: [address] [place] [address] Performed By: #### 1 988-5 #### [facility] CLIA [id number] [address] [place] [address] [place] eGFRcr SerPlBld CKD-EPI 2020 79 mL/min/1.73m??? Normal >=60 [facility] Comment on above: Order Comment: Speci men Type: BLOOD SPECIMEN Ordering Facility: [facility] Address: [address] [place] [address] Result Comment: Mariza mated Glomerular Filtration Rate [...] GFR. Performed By: #### 1 988-5 #### [facility] CLIA [id number] [address] [place] [address] [place] Glucose [Mass/Vol] 106 mg/dL High 74-99 [facility] Comment on above: Order Comment: Pauly magallanes Type: BLOOD SPECIMEN Ordering Facility: [facility] Address: [address] [place] [address] Result Comment: The [place] [employer] (ADA) provides guidance for cutoff [...] Standards of Medical Care in Diabetes 2016, [place] [employer]. Diabetes Care. 2016.39(Suppl 1). Performed By: #### 1 988-5 #### [facility] CLIA [id number] [address] [place], [place] [id number] [place] Potassium [Moles/Vol] 4.2 mmol/L Normal 3.7-5.1 [facility] Comment on above: Order Comment: Pauly magallanes Type: BLOOD SPECIMEN Ordering Facility: [facility] Address: [address] [place], [place] [id number] Performed By: #### 1 988-5 #### [facility] CLIA [id number] [address] [place] [address] [place] Protein [Mass/Vol] 6.6 g/dL Normal 6.3-8.0 [facility] Comment on above: Order Comment: Speci men Type: BLOOD SPECIMEN Ordering Facility: [facility] Address: [address] [place] [address] Performed By: #### 1 988-5 #### [facility] CLIA [id number] [address] [place] [address] [place] Sodium [Moles/Vol] 141 mmol/L Normal 136-144 [facility] Comment on above: Order Comment: Speci men Type: BLOOD SPECIMEN Ordering Facility: [facility] Address: [address] [place] [address] Performed By: #### 1 988-5 #### [facility] CLIA [id number] [address] [place] [address] [place] Urea nitrogen [Mass/Vol] 16 mg/dL Normal 7-21 [facility] Comment on above: Order Comment: Speci men Type: BLOOD SPECIMEN Ordering Facility: [facility] Address: [address] [place] [address] Performed By: #### 1 988-5 #### [facility] CLIA [id number] [address] [place] [address] [place] ESR Westergren method (Bld) [Velocity]on 06-20-2025 ESR (Bld) [Velocity] 6 mm/h Normal 0-20 [facility] Comment on above: Order Comment: Speci men Type: BLOOD SPECIMEN Ordering Facility: [facility] Address: [address] [place] [address] Performed By: #### 1 988-5 #### [facility] CLIA [id number] [address] [place], [place] [id number] [place] Orthopedic Visit Reporton Orthopedic Visit Report Normal [facility] MRSA/SAID NASAL SCREENon MRSA+SAID SCRN Reason for Exam: Jazmin clarisse MRSA MRSA Negative S. AUREUS S. aureus Negative Normal [facility] Comment on above: Performed By: #### L 500.2500, L501.9985, L100.0100, BTS, M100.65 ####[facility] [address] [place], [address] Basic Metabolic Profile (BMP )on 06-12-2025 BUN/CRE 22.7 RATIO High 10-20 [facility] Comment on above: Performed By: #### L 500.2500, L501.9985, L100.0100, BTS, M100.651 ####[facility] [address] [place], [address] Calcium [Mass/Vol] 9.7 mg/dL Normal 7.6-11.0 [facility] Comment on above: Performed By: #### L 500.2500, L501.9985, L100.0100, BTS, M100.651 ####[facility] [address] [place], [address] Chloride [Moles/Vol] 105 mmol/L Normal 98-108 [facility] Comment on above: Performed By: #### L 500.2500, L501.9985, L100.0100, BTS, M100.651 ####[facility] [address] [place], [address] CO2 [Moles/Vol] 28.4 mmol/L Normal 21.0-32.0 [facility] Comment on above: Performed By: #### L 500.2500, L501.9985, L100.0100, BTS, M100.651 ####[facility] [address] [place], [address] Creatinine [Mass/Vol] 1.01 mg/dL Normal 0.70-1.20 [facility] Comment on above: Performed By: #### L 500.2500, L501.9985, L100.0100, BTS, M100.651 ####[facility] [address] [place], [address] GAP 9 Normal 5-15 [facility] Comment on above: Performed By: #### L 500.2500, L501.9985, L100.0100, BTS, M1.65 ####[facility] [address] [place], [address] GFR/1.73 sq M.predicted among non-blacks MDRD (S/P/Bld) [Vol rate/Area] 60 mL/min/{1.73_m2} Normal >60 [facility] Comment on above: Result Comment: mL/m in/1.73m2 CKD-EPI Creatinine Equation (2020) Performed By: #### L 500.2500, L501.9985, L100.0100, BTS, .65 ####[facility] [address] [place], [address] Glucose [Mass/Vol] 102 mg/dL High 70-99 [facility] Comment on above: Performed By: #### L 500.2500, L501.9985, L100.0100, BTS, .65 ####[facility] [address] [place], [address] Potassium [Moles/Vol] 4.1 mmol/L Normal 3.3-5.1 [facility] Comment on above: Performed By: #### L 500.2500, L501.9985, L100.0100, BTS, .65 ####[facility] [address] [place], [address] Sodium [Moles/Vol] 143 mmol/L Normal 133-145 [facility] Comment on above: Performed By: #### L 500.2500, L501.9985, L100.0100, BTS, M100.65 ####[facility] [address] [place], [address] Urea nitrogen [Mass/Vol] 23 mg/dL High 4-19 [facility] Comment on above: Performed By: #### L 500.2500, L501.9985, L100.0100, BTS, M100.651 ####[facility] [address] [place], [address] CBC W/Diff, Automatedon 10-0 Absolute Lymph 1.93 X10 3/uL Normal 0.83-4.51 [facility] Comment on above: Performed By: #### L 500.2500, L501.9985, L100.0100, BTS, M100.651 ####[facility] [address] [place], [address] Absolute Neut 2.2 X10 3/uL Normal 2.0-7.7 [facility] Comment on above: Performed By: #### L 500.2500, L501.9985, L100.0100, BTS, M100.651 ####[facility] [address] [place], [address] Basophils/100 WBC (Bld) 1.5 % High 0-1 [facility] Comment on above: Performed By: #### L 500.2500, L501.9985, L100.0100, BTS, M100.651 ####[facility] [address] [place], [address] Eosinophils/100 WBC (Bld) 17.8 % High 0-5 [facility] Comment on above: Performed By: #### L 500.2500, L501.9985, L100.0100, BTS, M100.651 ####[facility] [address] [place], [address] Erythrocyte distribution width (RBC) [Ratio] 14.0 % Normal 11.6-14.6 [facility] Comment on above: Performed By: #### L 500.2500, L501.9985, L100.0100, BTS, M100.651 ####[facility] [address] [place], [address] Hematocrit (Bld) [Volume fraction] 41.2 % Normal 37-47 [facility] Comment on above: Performed By: #### L 500.2500, L501.9985, L100.0100, BTS, M100.651 ####[facility] [address] [place], [address] Hemoglobin (Bld) [Mass/Vol] 12.7 g/dL Normal 12.0-15.0 [facility] Comment on above: Performed By: #### L 500.2500, L501.9985, L100.0100, BTS, M100.651 ####[facility] [address] [place], [address] IG% 0.200 Normal 0.0-0.9 [facility] Comment on above: Result Comment: IG% - Immature Granulocytes (promyelocytes, myelocytes andmetamyelocytes) > 1% indicates that a LEFT SHIFT is Present. Performed By: #### L 500.2500, L501.9985, L100.0100, BTS, M100.651 ####[facility] [address] [place], [address] Lymphocytes/100 WBC (Bld) 33.1 % Normal 19-41 [facility] Comment on above: Performed By: #### L 500.2500, L501.9985, L100.0100, BTS, M100.651 ####[facility] [address] [place], [address] MCH (RBC) [Entitic mass] 28.0 pg Normal 27.0-32.0 [facility] Comment on above: Performed By: #### L 500.2500, L501.9985, L100.0100, BTS, M100.651 ####[facility] [address] [place], [address] MCHC (RBC) [Mass/Vol] 30.8 g/dL Low 32-36 [facility] Comment on above: Performed By: #### L 500.2500, L501.9985, L100.0100, BTS, M100.651 ####[facility] [address] [place], [address] MCV (RBC) [Entitic vol] 90.7 fL Normal 81-99 [facility] Comment on above: Performed By: #### L 500.2500, L501.9985, L100.0100, BTS, M100.651 ####[facility] [address] [place], [address] Monocytes/100 WBC (Bld) 9.6 % Normal 0-10 [facility] Comment on above: Performed By: #### L 500.2500, L501.9985, L100.0100, BTS, M100.651 ####[facility] [address] [place], [address] Neutrophils/100 WBC (Bld) 37.8 % Low 47-70 [facility] Comment on above: Performed By: #### L 500.2500, L501.9985, L100.0100, BTS, M100.651 ####[facility] [address] [place], [address] Nucleated RBC (Bld) [#/Vol] 0 10*3/uL Normal 0-5 [facility] Comment on above: Performed By: #### L 500.2500, L501.9985, L100.0100, BTS, M100.651 ####[facility] [address] [place], [address] Platelet mean volume (Bld) [Entitic vol] 11.6 fL Normal 6.2-12.0 [facility] Comment on above: Performed By: #### L 500.2500, L501.9985, L100.0100, BTS, M100.651 ####[facility] [address] [place], [address] Platelets (Bld) [#/Vol] 233 10*3/uL Normal 150-450 [facility] Comment on above: Performed By: #### L 500.2500, L501.9985, L100.0100, BTS, M100.651 ####[facility] [address] [place], [address] RBC (Bld) [#/Vol] 4.54 10*6/uL Normal 4.2-5.4 [facility] Comment on above: Performed By: #### L 500.2500, L501.9985, L100.0100, BTS, M100.651 ####[facility] [address] [place], [address] RDW SD 46.2 fl High 35.1-43.9 [facility] Comment on above: Performed By: #### L 500.2500, L501.9985, L100.0100, BTS, M100.651 ####[facility] [address] [place], [address] WBC (Bld) [#/Vol] 5.8 10*3/uL Normal 4.4-11.0 [facility] Comment on above: Performed By: #### L 500.2500, L501.9985, L100.0100, BTS, M100.651 ####[facility] [address] [place], [address] Hemoglobin A1con 06-12-2025 HbA1c (Bld) [Mass fraction] 6.2 % High <=5.6 [facility] Comment on above: Result Comment: Norm al < 5.7 % Prediabetic 5.7 - 6.4 % Diabetic >or= 6.5 % Please note range changes. Performed By: #### L 500.2500, L501.9985, L100.0100, BTS, M100.653 ####[facility] [address] [place], [place], [address] Magnesiumon 06-12-2025 Magnesium [Mass/Vol] 2.1 mg/dL Normal 1.5-2.2 [facility] Comment on above: Performed By: #### L 501.5200 ####[facility] [address] [place], [address] Neurology Visit Reporton Neurology Visit Report Normal [facility] Type AND Screenon 06-12-2025 ABO and Rh group Nom (Bld) Blood group O Rh(D) positive Normal [facility] Comment on above: Order Comment: Surge ry Date: 06/23/25Reason for Laboratory Test [id number] Performed By: #### L 500.2500, L501.9985, L100.0100, BTS, M100.650 ####[facility] [address] [place], [address] CNOVon 06-11-2025 CNOV Office Visit (RHWSTR ) LELE PANG ([id number]) 1955 F Date Time Provider Department 06/11/25 2:00 PM WINNIE HERNANDEZ RHWSTR During your visit today, we recorded the following information about you: Pulse Respiration Blood pressure Weight 74/minute 16/minute 104/62 61.8 kg Winnie Hernandez PA-C 06/11/2025 5:49 PM Signed Rheumatology Clinic Visit June 11, 2025 Last seen: 03/06/2025 (with Winnie Hernandez) CC: Established Patient (Follow up) HPI: Lele Pang is a 70 year old female who follows with rheumatology for Rheumatoid arthritis. BRIEF RHEUM History: Diagnosed with RA in 2015 though [facility] after multiple trigger finger surgeries and elevated rheumatologic markers. - Initially treated with methotrexate injections, which was later switched to leflunomide -history of osteoarthritis in her back and hips, for which she receives injections. She recently had a lumbar injection for severe sciatica with pain management at [facility], which significantly limited her mobility and daily [...] Surgery scheduled 06/23/[address] Chow at [facility], planning a lumbar fusion L4. Mood [...] Negative Negative Last Bone Density: 12/18/2024 at [facility] - LS T-score -2.2 stable (3% [...] STUDIES / DATA Labs done 25 at [facility]. Sed rate 7 normal BMP with elevated BUN 23 normal creatinine 0.92 AST ALT normal Tisha 1 negative SSA negative SSB negative Small negative [employer] negative SCL 70 negative double-stranded DNA negative [...] mild de (more content not included)... Normal [facility] MR/PAT.ANEon 06-09-2025 MR/PAT.ANE Normal [facility] CBC W Auto Differential pane l (Bld)on 05-26-2025 Basophils (Bld) [#/Vol] 0.10 10*3/uL Normal <0.11 [facility] Comment on above: Order Comment: Speci men Type: BLOOD SPECIMEN Ordering Facility: [facility] Address: [address] [place] [address] Performed By: #### 2 4323-8 #### [facility] CLIA [id number] [address] [place] [address] [place] Basophils/100 WBC (Bld) 1.2 % Normal [facility] Comment on above: Order Comment: Speci men Type: BLOOD SPECIMEN Ordering Facility: [facility] Address: [address] [place] [address] Performed By: #### 2 4323-8 #### [facility] CLIA [id number] [address] [place] [address] [place] Differential cell count method Nom (Bld) Auto Normal [facility] Comment on above: Order Comment: Speci men Type: BLOOD SPECIMEN Ordering Facility: [facility] Address: [address] [place] [address] Performed By: #### 2 4323-8 #### [facility] CLIA [id number] [address] [place] [address] [place] Eosinophils (Bld) [#/Vol] 1.49 10*3/uL High <0.46 [facility] Comment on above: Order Comment: Speci men Type: BLOOD SPECIMEN Ordering Facility: [facility] Address: [address] [place] [address] Performed By: #### 2 4323-8 #### [facility] CLIA [id number] [address] [place] [address] [place] Eosinophils/100 WBC (Bld) 17.8 % Normal [facility] Comment on above: Order Comment: Speci men Type: BLOOD SPECIMEN Ordering Facility: [facility] Address: [address] [place] [address] Performed By: #### 2 4323-8 #### [facility] CLIA [id number] [address] [place] [address] [place] Erythrocyte distribution width (RBC) [Ratio] 13.3 % Normal 11.5-15.0 [facility] Comment on above: Order Comment: Speci men Type: BLOOD SPECIMEN Ordering Facility: [facility] Address: [address] [place] [address] Performed By: #### 2 4323-8 #### [id number] [address] [place] [address] [place] Hematocrit (Bld) [Volume fraction] 42.6 % Normal 36.0-46.0 [facility] Comment on above: Order Comment: Speci men Type: BLOOD SPECIMEN Ordering Facility: [facility] Address: [address] [place] [address] Performed By: #### 2 4323-8 #### [facility] [id number] [address] [place] [address] [place] Hemoglobin (Bld) [Mass/Vol] 13.7 g/dL Normal 11.5-15.5 [facility] Comment on above: Order Comment: Speci men Type: BLOOD SPECIMEN Ordering Facility: [facility] Address: [address] [place] [address] Performed By: #### 2 4323-8 #### [facility] [id number] [address] [place] [address] [place] Immature granulocytes (Bld) [#/Vol] 10*3/uL Normal <0.10 [facility] Comment on above: Order Comment: Speci men Type: BLOOD SPECIMEN Ordering Facility: [facility] Address: [address] [place] [address] Performed By: #### 2 4323-8 #### [facility] CLIA [id number] [address] [place] [address] [place] [facility] Immature granulocytes/100 WBC (Bld) 0.2 % Normal [facility] Comment on above: Order Comment: Speci men Type: BLOOD SPECIMEN Ordering Facility: [facility] Address: [address] [place] [address] Performed By: #### 2 4323-8 #### [facility] CLIA [id number] [address] [place] [address] [place] Lymphocytes (Bld) [#/Vol] 2.31 10*3/uL Normal 1.00-4.00 [facility] Comment on above: Order Comment: Speci men Type: BLOOD SPECIMEN Ordering Facility: [facility] Address: [address] [place] [address] Performed By: #### 2 4323-8 #### [facility] [id number] [address] [place] [address] [place] Lymphocytes/100 WBC (Bld) 27.5 % Normal [facility] Comment on above: Order Comment: Speci men Type: BLOOD SPECIMEN Ordering Facility: [facility] Address: [address] [place] [address] Performed By: #### 2 4323-8 #### [facility] CLIA [id number] [address] [place] [address] [place] MCH (RBC) [Entitic mass] 28.8 pg Normal 26.0-34.0 [facility] Comment on above: Order Comment: Speci men Type: BLOOD SPECIMEN Ordering Facility: [facility] Address: [address] [place] [address] Performed By: #### 2 4323-8 #### [facility] CLIA [id number] [address] [place], [place] [id number] [place] MCHC (RBC) [Mass/Vol] 32.2 g/dL Normal 30.5-36.0 [facility] Comment on above: Order Comment: Speci men Type: BLOOD SPECIMEN Ordering Facility: [facility] Address: [address] [place] [address] Performed By: #### 2 4323-8 #### [facility] CLIA [id number] [address] [place] [address] [place] MCV (RBC) [Entitic vol] 89.5 fL Normal 80.0-100.0 [facility] Comment on above: Order Comment: Speci men Type: BLOOD SPECIMEN Ordering Facility: [facility] Address: [address] [place] [address] Performed By: #### 2 4323-8 #### [facility] [id number] [address] [place] [address] [place] Monocytes (Bld) [#/Vol] 0.71 10*3/uL Normal <0.87 [facility] Comment on above: Order Comment: Speci men Type: BLOOD SPECIMEN Ordering Facility: [facility] Address: [address] [place] [address] Performed By: #### 2 4323-8 #### [facility] [id number] [address] [place] [address] [place] Monocytes/100 WBC (Bld) 8.5 % Normal [facility] Comment on above: Order Comment: Speci men Type: BLOOD SPECIMEN Ordering Facility: [facility] Address: [address] [place] [address] Performed By: #### 2 4323-8 #### [facility] CLIA [id number] [address] [place] [address] [place] Neutrophils (Bld) [#/Vol] 3.76 10*3/uL Normal 1.45-7.50 [facility] Comment on above: Order Comment: Speci men Type: BLOOD SPECIMEN Ordering Facility: [facility] Address: [address] [place] [address] Performed By: #### 2 4323-8 #### [facility] CLIA [id number] [address] [place] [address] [place] Neutrophils/100 WBC (Bld) 44.8 % Normal [facility] Comment on above: Order Comment: Speci men Type: BLOOD SPECIMEN Ordering Facility: [facility] Address: [address] [place] [address] Performed By: #### 2 4323-8 #### [facility] CLIA [id number] [address] [place] [address] [place] Nucleated RBC (Bld) [#/Vol] 10*3/uL Normal <0.01 [facility] Comment on above: Order Comment: Speci men Type: BLOOD SPECIMEN Ordering Facility: [facility] Address: [address] [place] [address] Performed By: #### 2 4323-8 #### [facility] CLIA [id number] [address] [place] [address] [place] Nucleated RBC/100 WBC (Bld) [Ratio] 0.0 /100 WBC Normal [facility] Comment on above: Order Comment: Speci men Type: BLOOD SPECIMEN Ordering Facility: [facility] Address: [address] [place] [address] Performed By: #### 2 4323-8 #### [facility] CLIA [id number] [address] [place] [address] [place] Platelet mean volume (Bld) [Entitic vol] 10.9 fL Normal 9.0-12.7 [facility] Comment on above: Order Comment: Speci men Type: BLOOD SPECIMEN Ordering Facility: [facility] Address: [address] [place] [address] Performed By: #### 2 4323-8 #### [facility] CLIA [id number] [address] [place] [address] [place] Platelets (Bld) [#/Vol] 227 10*3/uL Normal 150-400 [facility] Comment on above: Order Comment: Speci men Type: BLOOD SPECIMEN Ordering Facility: [facility] Address: [address] [place] [address] Performed By: #### 2 4323-8 #### [facility] CLIA [id number] [address] [place] [address] [place] RBC (Bld) [#/Vol] 4.76 10*6/uL Normal 3.90-5.20 [facility] Comment on above: Order Comment: Speci men Type: BLOOD SPECIMEN Ordering Facility: [facility] Address: [address] [place] [address] Performed By: #### 2 4323-8 #### [facility] CLIA [id number] [address] [place] [address] [place] WBC (Bld) [#/Vol] 8.39 10*3/uL Normal 3.70-11.00 [facility] Comment on above: Order Comment: Speci men Type: BLOOD SPECIMEN Ordering Facility: [facility] Address: [address] [place] [address] Performed By: #### 2 4323-8 #### [facility] CLIA [id number] [address] [place] [address] [place] CRP SerPl-mCncon 05-26-2025 CRP [Mass/Vol] mg/L Normal <0.9 [facility] Comment on above: Order Comment: Speci men Type: BLOOD SPECIMEN Ordering Facility: [facility] Address: [address] [place] [address] Performed By: #### 1 988-5 #### [facility] CLIA [id number] [address] [place] [address] [place] Comprehensive metabolic 2000 panelon 05-26-2025 Albumin [Mass/Vol] 4.2 g/dL Normal 3.9-4.9 [facility] Comment on above: Order Comment: Speci men Type: BLOOD SPECIMEN Ordering Facility: [facility] Address: [address] [place] [address] Performed By: #### 2 4323-8 #### [facility] CLIA [id number] [address] [place] [address] [place] ALP [Catalytic activity/Vol] 91 U/L Normal 34-123 [facility] Comment on above: Order Comment: Speci men Type: BLOOD SPECIMEN Ordering Facility: [facility] Address: [address] [place] [address] Performed By: #### 2 4323-8 #### [facility] CLIA [id number] [address] [place] [address] [place] ALT [Catalytic activity/Vol] 23 U/L Normal 7-38 [facility] Comment on above: Order Comment: Speci men Type: BLOOD SPECIMEN Ordering Facility: [facility] Address: [address] [place] [address] Performed By: #### 2 4323-8 #### [facility] CLIA [id number] [address] [place] [address] [place] Anion gap [Moles/Vol] 13 mmol/L Normal 8-15 [facility] Comment on above: Order Comment: Speci men Type: BLOOD SPECIMEN Ordering Facility: [facility] Address: [address] [place] [address] Performed By: #### 2 4323-8 #### [facility] CLIA [id number] [address] [place] [address] [place] AST [Catalytic activity/Vol] 39 U/L High 13-35 [facility] Comment on above: Order Comment: Speci men Type: BLOOD SPECIMEN Ordering Facility: [facility] Address: [address] [place], [place] [address], [place] [address] Performed By: #### 2 4323-8 #### [facility] CLIA [id number] [address] [place] [address] [place] Bilirubin [Mass/Vol] 0.4 mg/dL Normal 0.2-1.3 [facility] Comment on above: Order Comment: Speci men Type: BLOOD SPECIMEN Ordering Facility: [facility] Address: [address] [place] [address] Performed By: #### 2 4323-8 #### [facility] CLIA [id number] [address] [place] [address] [place] Calcium [Mass/Vol] 10.6 mg/dL High 8.5-10.2 [facility] Comment on above: Order Comment: Speci men Type: BLOOD SPECIMEN Ordering Facility: [facility] Address: [address] [place] [address] Performed By: #### 2 4323-8 #### [facility] CLIA [id number] [address] [place] [address] [place] Chloride [Moles/Vol] 103 mmol/L Normal 98-107 [facility] Comment on above: Order Comment: Speci men Type: BLOOD SPECIMEN Ordering Facility: [facility] Address: [address] [place] [address] Performed By: #### 2 4323-8 #### [facility] CLIA [id number] [address] [place] [address] [place] CO2 [Moles/Vol] 21 mmol/L Low 22-30 [facility] Comment on above: Order Comment: Speci men Type: BLOOD SPECIMEN Ordering Facility: [facility] Address: [facility] [place] [id number] Performed By: #### 2 4323-8 #### [facility] CLIA [id number] [address] [place] [address] [place] Creatinine [Mass/Vol] 1.05 mg/dL High 0.58-0.96 [facility] Comment on above: Order Comment: Pauly magallanes Type: BLOOD SPECIMEN Ordering Facility: [facility] Address: [address] [place] [address] Performed By: #### 2 4323-8 #### [facility] CLIA [id number] [address] [place] [address] [place] eGFRcr SerPlBld CKD-EPI 2020 57 mL/min/1.73m??? Low >=60 [facility] Comment on above: Order Comment: Pauly magallanes Type: BLOOD SPECIMEN Ordering Facility: [facility] Address: [address] [place] [address] Result Comment: Mariza mated Glomerular Filtration Rate [...] GFR. Performed By: #### 2 4323-8 #### [facility] CLIA [id number] [address] [place] [address] [place] Glucose [Mass/Vol] 113 mg/dL High 74-99 [facility] Comment on above: Order Comment: Pauly magallanes Type: BLOOD SPECIMEN Ordering Facility: [facility] Address: [address] [place] [address] Result Comment: The [place] [employer] (ADA) provides guidance for cutoff [...] Standards of Medical Care in Diabetes 2016, [place] [employer]. Diabetes Care. 2016.39(Suppl 1). Performed By: #### 2 4323-8 #### [facility] CLIA [id number] [address] [place] [address] [place] Potassium [Moles/Vol] 4.2 mmol/L Normal 3.7-5.1 [facility] Comment on above: Order Comment: Speci men Type: BLOOD SPECIMEN Ordering Facility: [facility] Address: [address] [place] [address] Performed By: #### 2 4323-8 #### [facility] CLIA [id number] [address] [place] [address] [place] Protein [Mass/Vol] 7.0 g/dL Normal 6.3-8.0 [facility] Comment on above: Order Comment: Speci men Type: BLOOD SPECIMEN Ordering Facility: [facility] Address: [address] [place] [address] Performed By: #### 2 4323-8 #### [id number] [address] [place] [address] [place] Sodium [Moles/Vol] 137 mmol/L Normal 136-144 [facility] Comment on above: Order Comment: Speci men Type: BLOOD SPECIMEN Ordering Facility: [facility] Address: [address] [place] [address] Performed By: #### 2 4323-8 #### [id number] [address] [place] [address] [place] Urea nitrogen [Mass/Vol] 22 mg/dL High 7-21 [facility] Comment on above: Order Comment: Speci men Type: BLOOD SPECIMEN Ordering Facility: [facility] Address: [address] [place] [address] Performed By: #### 2 4323-8 #### [facility] CLIA [id number] [address] [place] [address] [place] ESR Westergren method (Bld) [Velocity]on 05-26-2025 ESR (Bld) [Velocity] 5 mm/h Normal 0-20 [facility] Comment on above: Order Comment: Speci men Type: BLOOD SPECIMEN Ordering Facility: [facility] Address: [address] [place] [address] Performed By: #### 4 537-7 #### [facility] CLIA [id number] [address] [place] [address] [place] [address] [place] L3410.9992on 05-04-2025 [facility] Misc. COMMENT Normal . [facility] Comment on above: Order Comment: [id number] 6METANEPHRINES LAV SERUM RF Result Comment: Test Ordered: 126704 Metanephrines, Frac., Pl. FreeTest(s) 638022-Iwtmfktlvgxbqrc, Pl; 293899-Vkixbhwkmkea, Plwas developed and its performance characteristicsdetermined by [facility]. It has not been cleared or approvedby the Food and Drug Administration.Normetanephrine, Pl 318.9 [H ] pg/mL Reference Range: 0.0-285.2Metanephrine, Pl 71.7 pg/mL Reference Range: 0.0-88.0Performed at: - [facility] [id number] Director: Dereck Buchanan MD, Phone: [phone] at: - Lab[address] [id number] Director: Fady Alfaro PhD, Phone: [phone] Performed By: #### L 500.3600, L501.0900, L3400.4000, L3300.1100, L3410.9992 ####[facility] [address] [place], [place], [id number] Aldosterone, Serumon 025 ALDOSTERONE,S 16.8 ng/dL Normal 0.0-30.0 [facility] Comment on above: Order Comment: Test( s) 072224-Vyont Activity, Plasmawas developed and its performance characteristicsdetermined by [employer] [employer] It has not been cleared or approvedby the Food and Drug Administration. Result Comment: Perf ormed at: - [facility] [address] [place], [place] [id number] Director: Dereck Buchanan MD, Phone: [phone] Performed By: #### L 500.3600, L501.0900, L3400.4000, L3300.1100, L3410.9992 ####[facility] [address] [place], [address] Renin, Plasmaon 05-03-2025 RENIN, PLASMA 41.466 ng/mL/hr High 0.167-5.380 [facility] Comment on above: Order Comment: Test( s) 233281-Smmjv Activity, Plasmawas developed and its performance characteristicsdetermined by [employer]. It has not been cleared or approvedby the Food and Drug Administration. Performed By: #### L 500.3600, L501.0900, L3400.4000, L3300.1100, L3410.9992 ####[facility] [address] [place], [address] Protein+Creatinine Ratio,Uri neon 04-25-2025 PROT:CRE RATIO 151 mg/g CRE Normal 0-200 [facility] Comment on above: Performed By: #### L 500.3600, L501.0900, L3400.4000, L3300.1100, L3410.9992 ####[facility] [address] [place], [address] Protein (U) [Mass/Vol] 12.6 mg/dL High 0.0-12.0 [facility] Comment on above: Performed By: #### L 500.3600, L501.0900, L3400.4000, L3300.1100, L3410.9992 ####[facility] [address] [place], [address] UR CREAT 83.70 mg/dL Normal 28.00-217.00 [facility] Comment on above: Performed By: #### L 500.3600, L501.0900, L3400.4000, L3300.1100, L3410.9992 ####[facility] [address] [place], [address] Renal Profileon 04-25-2025 Albumin [Mass/Vol] 4.2 g/dL Normal 3.4-4.8 [facility] Comment on above: Performed By: #### L 500.3600, L501.0900, L3400.4000, L3300.1100, L3410.9992 ####[facility] [address] [place], [address] BUN/CRE 21.7 RATIO High 10-20 [facility] Comment on above: Performed By: #### L 500.3600, L501.0900, L3400.4000, L3300.1100, L3410.9992 ####[facility] [address] [place], [address] Calcium [Mass/Vol] 9.8 mg/dL Normal 7.6-11.0 [facility] Comment on above: Performed By: #### L 500.3600, L501.0900, L3400.4000, L3300.1100, L3410.9992 ####[facility] [address] [place], [address] Chloride [Moles/Vol] 104 mmol/L Normal 98-108 [facility] Comment on above: Performed By: #### L 500.3600, L501.0900, L3400.4000, L3300.1100, L3410.9992 ####[facility] [address] [place], [address] CO2 [Moles/Vol] 22.0 mmol/L Normal 21.0-32.0 [facility] Comment on above: Performed By: #### L 500.3600, L501.0900, L3400.4000, L3300.1100, L3410.9992 ####[facility] [address] [place], [address] Creatinine [Mass/Vol] 0.88 mg/dL Normal 0.70-1.20 [facility] Comment on above: Performed By: #### L 500.3600, L501.0900, L3400.4000, L3300.1100, L3410.9992 ####[facility] [address] [place], [address] GAP 15 Normal 5-15 [facility] Comment on above: Performed By: #### L 500.3600, L501.0900, L3400.4000, L3300.1100, L3410.9992 ####[facility] [address] [place], [address] GFR/1.73 sq M.predicted among non-blacks MDRD (S/P/Bld) [Vol rate/Area] 71 mL/min/{1.73_m2} Normal >60 [facility] Comment on above: Result Comment: mL/m in/1.73m2 CKD-EPI Creatinine Equation (2020) Performed By: #### L 500.3600, L501.0900, L3400.4000, L3300.1100, L3410.9992 ####[facility] [address] [place], [address] Glucose [Mass/Vol] 104 mg/dL High 70-99 [facility] Comment on above: Performed By: #### L 500.3600, L501.0900, L3400.4000, L3300.1100, L3410.9992 ####[facility] [address] [place], [address] Phosphate [Mass/Vol] 2.9 mg/dL Normal 2.7-4.5 [facility] Comment on above: Performed By: #### L 500.3600, L501.0900, L3400.4000, L3300.1100, L3410.9992 ####[facility] [address] [place], [address] Potassium [Moles/Vol] 3.6 mmol/L Normal 3.3-5.1 [facility] Comment on above: Performed By: #### L 500.3600, L501.0900, L3400.4000, L3300.1100, L3410.9992 ####[facility] [address] [place], [address] Sodium [Moles/Vol] 141 mmol/L Normal 133-145 [facility] Comment on above: Performed By: #### L 500.3600, L501.0900, L3400.4000, L3300.1100, L3410.9992 ####[facility] [address] [place], [address] Urea nitrogen [Mass/Vol] 19 mg/dL Normal 4-19 [facility] Comment on above: Performed By: #### L 500.3600, L501.0900, L3400.4000, L3300.1100, L3410.9992 ####[facility] [address] [place], [address] Stress Reporton 04-15-2025 Stress Report Normal [facility] Hepatitis A AB, Totalon 03-04 HEPATITIS A,TOT Negative Normal Negative [facility] Comment on above: Result Comment: Comm [...] HAVtotal antibody results to IgM (e.g., panel #198044 HAVAntibody w/ Rfx).Performed at: [address] [id number] Director: Dereck Buchanan MD, Phone: [phone] at: [address] [id number] Director: Fady Alfaro PhD, Phone: [phone] Performed By: #### L 3890.6301, L3600.3400, L3890.6202, L3890.6006, M100.651, L3100.0300, BTSPAT ####[facility] [address] [place], [place], [address] Nicotine Screen Bloodon 03-04 COTININE BLOOD 11.2 ng/mL Normal . [facility] Comment on above: Result Comment: This test was developed and its performance characteristicsdetermined by [employer]. It has not been cleared orapproved by the Food and Drug Administration.Cotinine levels greater than 20.0 are consistent with theuse of tobacco or tobacco cessation products. Performed By: #### L 3890.6301, L3600.3400, L3890.6202, L3890.6006, M100.651, L3100.0300, BTSPAT ####[facility] [address] [place], [address] NICOTINE BLOOD <1.0 Normal . [facility] Comment on above: Result Comment: This test was developed and its performance characteristicsdetermined by [employer]. It has not been cleared orapproved by the Food and Drug Administration.Nicotine levels greater than 2.0 are consistent with theuse of tobacco or tobacco cessation products. Performed By: #### L 3890.6301, L3600.3400, L3890.6202, L3890.6006, M100.651, L3100.0300, BTSPAT ####[facility] [address] [place], [address] Pulmonary Visit Reporton Pulmonary Visit Report Normal [facility] Echo Completeon 03-10-2025 Echo Complete Normal [facility] HIVon 03-08-2025 HIV Non-Reactive Normal Nonreactive [facility] Comment on above: Result Comment: Non- ReactiveReactiveRepeatedly reactive samples must be confirmed according [facility] recommended confirmatory algorithms. The subresults foreither HIVAG or AHIV can be used as an aid in the selectionof the confirmation algorithm for reactive samples.Send out specimens with Reactive results to [facility] forconfirmation.Order the HIV antibody detection and differentiation:lc#[id number] Performed By: #### L 3890.6301, L3600.3400, L3890.6202, L3890.6006, M100.651, L3100.0300, BTSPAT ####[facility] [address] [place], [place], [address] Hepatitis B Surface Antibody on 03-08-2025 HEP B Surf Ab Non-Reactive Normal [facility] Comment on above: Result Comment: <8.5 mIU/mL: Non-Reactive8.5<= x <11.5 mIU/mL: Indeterminate>=11.5 mIU/mL: Reactive Non Reactive: Inconsistent with immunity less than <10 mIU/mL Reactive: Consistent with immunity greater than or equal to 10 mIU/mL Performed By: #### L 3890.6301, L3600.3400, L3890.6202, L3890.6006, M100.651, L3100.0300, BTSPAT ####[facility] [address] [place], [address] Hepatitis C Antibodyon 03-08 Hepatitis C Ab Non-Reactive Normal Nonreactive [facility] Comment on above: Result Comment: Reac tive: Presumptive evidence of antibodies to HCV. [facility] recommendations for supplemental testing.Non-Reactive: Antibodies to HCV were not detected; does notexclude the possibility of exposure to HCVReactive Results are presumptive evidence of antibodies toHCV. Follow CDC recommendations for supplemental testing.Order confirmation testing: HCV Quant by PCR testing -HCVPCR #[id number] Non Reactive: < 0.8 Equivocal: >/= 0.8 to < 1.0 Reactive: >/= 1.0The CDC requires that a reactive/equivocal HCV antibodyresult be sent out for confirmation. HCV Quant by PCRtesting. Performed By: #### L 3890.6301, L3600.3400, L3890.6202, L3890.6006, M100.651, L3100.0300, BTSPAT ####[facility] [address] [place], [place], [address] MRSA/SAID NASAL SCREENon MRSA+SAID SCRN Reason for Exam: Jazmin clarisse MRSA MRSA Negative S. AUREUS S. aureus Negative Normal [facility] Comment on above: Performed By: #### L 3890.6301, L3600.3400, L3890.6202, L3890.6006, M100.651, L3100.0300, BTSPAT ####[facility] [address] [place], [place], [address] Magnesiumon 03-08-2025 Magnesium [Mass/Vol] 2.2 mg/dL Normal 1.5-2.2 [facility] Comment on above: Performed By: #### L 501.5200 ####[facility] [address] [place], [place], [address] Type AND Screen - PAT ONLYon 03-08-2025 ABO and Rh group Nom (Bld) Blood group O Rh(D) positive Normal [facility] Comment on above: Order Comment: Surge ry Date: 03/17/25Reason for Laboratory Test PRE-[id number] Lumbar Fusion L3-4 anterior and revision posterior Performed By: #### L 3890.6301, L3600.3400, L3890.6202, L3890.6006, M100.651, L3100.0300, BTSPAT ####[facility] [address] [place], [place], [address] CNOVon 03-06-2025 CNOV Office Visit (RHWSTR ) LELE PANG ([id number]) 1955 F Date Time Provider Department 03/06/25 1:00 PM WINNIE HERNANDEZWSHERMAN During your visit today, we recorded the [...] in 2014 though [facility] after multiple trigger finger surgeries and elevated rheumatologic markers. - Initially treated with methotrexate injections, which was later switched to leflunomide -history of osteoarthritis in her back and hips, for which she receives injections. She recently had a lumbar injection for severe sciatica with pain management at [facility], which significantly limited her mobility and daily [...] stress test and ECHO done all through [facility]. Mentally she feels like she is [...] Negative Negative Last Bone Density: 12/18/2024 at [facility] - LS T-score -2.2 stable (3% [...] OUTSIDE STUDIES / DATA Labs done at [facility]. Sed rate 7 normal BMP with elevated BUN 23 normal creatinine 0.92 AST ALT normal Tisha 1 negative SSA negative SSB negative Small negative [employer] negative SCL 70 negative double-stranded DNA negative [...] study X- (more content not included)... Normal [facility] Orthopedic Visit Reporton Orthopedic Visit Report Normal [facility] MR/PAT.ANEon 03-04-2025 MR/PAT.ANE Normal [facility] CBC W/Diff, Automatedon 02-03 Absolute Lymph 2.77 X10 3/uL Normal 0.83-4.51 [facility] Comment on above: Performed By: #### L 501.9985, L100.0100, L506.1001, L501.9520 ####[facility] [address] [place], [address] Absolute Neut 3.4 X10 3/uL Normal 2.0-7.7 [facility] Comment on above: Performed By: #### L 501.9985, L100.0100, L506.1001, L501.9520 ####[facility] [address] [place], [address] Basophils/100 WBC (Bld) 1.2 % High 0-1 [facility] Comment on above: Performed By: #### L 501.9985, L100.0100, L506.1001, L501.9520 ####[facility] [address] [place], [address] Eosinophils/100 WBC (Bld) 8.6 % High 0-5 [facility] Comment on above: Performed By: #### L 501.9985, L100.0100, L506.1001, L501.9520 ####[facility] [address] [place], [address] Erythrocyte distribution width (RBC) [Ratio] 12.3 % Normal 11.6-14.6 [facility] Comment on above: Performed By: #### L 501.9985, L100.0100, L506.1001, L501.9520 ####[facility] [address] [place], [address] Hematocrit (Bld) [Volume fraction] 39.4 % Normal 37-47 [facility] Comment on above: Performed By: #### L 501.9985, L100.0100, L506.1001, L501.9520 ####[facility] [address] [place], [address] Hemoglobin (Bld) [Mass/Vol] 12.4 g/dL Normal 12.0-15.0 [facility] Comment on above: Performed By: #### L 501.9985, L100.0100, L506.1001, L501.9520 ####[facility] [address] [place], [address] IG% 0.500 Normal 0.0-0.9 [facility] Comment on above: Result Comment: IG% - Immature Granulocytes (promyelocytes, myelocytes andmetamyelocytes) > 1% indicates that a LEFT SHIFT is Present. Performed By: #### L 501.9985, L100.0100, L506.1001, L501.9520 ####[facility] [address] [place], [address] Lymphocytes/100 WBC (Bld) 36.5 % Normal 19-41 [facility] Comment on above: Performed By: #### L 501.9985, L100.0100, L506.1001, L501.9520 ####[facility] [address] [place], [address] MCH (RBC) [Entitic mass] 29.4 pg Normal 27.0-32.0 [facility] Comment on above: Performed By: #### L 501.9985, L100.0100, L506.1001, L501.9520 ####[facility] [address] [place], [address] MCHC (RBC) [Mass/Vol] 31.5 g/dL Low 32-36 [facility] Comment on above: Performed By: #### L 501.9985, L100.0100, L506.1001, L501.9520 ####[facility] [address] [place], [address] MCV (RBC) [Entitic vol] 93.4 fL Normal 81-99 [facility] Comment on above: Performed By: #### L 501.9985, L100.0100, L506.1001, L501.9520 ####[facility] [address] [place], [address] Monocytes/100 WBC (Bld) 8.8 % Normal 0-10 [facility] Comment on above: Performed By: #### L 501.9985, L100.0100, L506.1001, L501.9520 ####[facility] [address] [place], [address] Neutrophils/100 WBC (Bld) 44.4 % Low 47-70 [facility] Comment on above: Performed By: #### L 501.9985, L100.0100, L506.1001, L501.9520 ####[facility] [address] [place], [address] Nucleated RBC (Bld) [#/Vol] 0 10*3/uL Normal 0-5 [facility] Comment on above: Performed By: #### L 501.9985, L100.0100, L506.1001, L501.9520 ####[facility] [address] [place], [address] Platelet mean volume (Bld) [Entitic vol] 10.1 fL Normal 6.2-12.0 [facility] Comment on above: Performed By: #### L 501.9985, L100.0100, L506.1001, L501.9520 ####[facility] [address] [place], [address] Platelets (Bld) [#/Vol] 299 10*3/uL Normal 150-450 [facility] Comment on above: Performed By: #### L 501.9985, L100.0100, L506.1001, L501.9520 ####[facility] [address] [place], [address] RBC (Bld) [#/Vol] 4.22 10*6/uL Normal 4.2-5.4 [facility] Comment on above: Performed By: #### L 501.9985, L100.0100, L506.1001, L501.9520 ####[facility] [address] [place], [address] RDW SD 42.0 fl Normal 35.1-43.9 [facility] Comment on above: Performed By: #### L 501.9985, L100.0100, L506.1001, L501.9520 ####[facility] [address] [place], [address] WBC (Bld) [#/Vol] 7.6 10*3/uL Normal 4.4-11.0 [facility] Comment on above: Performed By: #### L 501.9985, L100.0100, L506.1001, L501.9520 ####[facility] [address] [place], [address] Hemoglobin A1con 02-25-2025 HbA1c (Bld) [Mass fraction] 5.7 % Normal <=5.6 [facility] Comment on above: Result Comment: Norm al < 5.7 % Prediabetic 5.7 - 6.4 % Diabetic >or= 6.5 % Please note range changes. Performed By: #### L 501.9985, L100.0100, L506.1001, L501.9520 ####[facility] [address] [place], [address] Office Visit Reporton 2024 Office Visit Report Normal [facility] Thyroid Stim Hormone (TSH)on 02-25-2025 TSH 0.573 uIU/mL Normal 0.300-4.200 [facility] Comment on above: Performed By: #### L 501.9985, L100.0100, L506.1001, L501.9520 ####[facility] [address] [place], [address] Vitamin D,25 Hydroxyon 02-25 Vitamin D 25-OH 88.7 ng/mL Normal 30-100 [facility] Comment on above: Result Comment: Paty min D StatusDeficiency: <20 ng/mL (50nmol/L)Insufficiency: 20-30 ng/mL (50-75 nmol/L)Sufficiency: 30-100 ng/mL (75-250 nmol/L)Toxicity: >100 ng/mL (>250 nmol/L) Performed By: #### L 501.9985, L100.0100, L506.1001, L501.9520 ####[facility] [address] [place], [address] Spine Lumbar without Contras ton 02-21-2025 Spine Lumbar without Contrast Normal [facility] 6 Minute Walk Teston 6 Minute Walk Test Normal [facility] 25(OH)D3 SerPl-mCncon 2024 25-hydroxyvitamin D3 [Mass/Vol] 91.5 ng/mL High 31.0-80.0 [facility] Comment on above: Order Comment: Pauly magallanes Type: BLOOD SPECIMEN Ordering Facility: [facility] Address: [address] [place] [address] Performed By: #### 2 4323-8 #### [facility] CLIA [id number] [address] [place] [address] OF [facility] BLOOD TB SCREENon 02-11-2025 M. tuberculosis tuberculin stim IFN-g Ql (Bld) Negative Normal [facility] Comment on above: Order Comment: Pauly magallanes Type: BLOOD SPECIMEN Ordering Facility: [facility] Address: [address] [place] [address] Performed By: #### 1 988-5 #### [facility] CLIA [id number] [address] [place] [address] [place] [facility] MITOGEN MINUS NIL >9.98 Normal >=0.50 [facility] Comment on above: Order Comment: aPuly magallanes Type: BLOOD SPECIMEN Ordering Facility: [facility] Address: [address] [place] [address] Performed By: #### 1 988-5 #### [facility] CLIA [id number] [address] [place] [address] TB GAMMA INTERPRETATION Infection with M. tuberculosis complex is unlikely. If latent tuberculosis infection is highly suspected, a negative result does not rule out the infection. Specimens from immunocompromised patients and those <5 years of age may show false negative results. In case of a contact investigation, please repeat 8-12 weeks after a known exposure. Normal [facility] Comment on above: Order Comment: Pauly magallanes Type: BLOOD SPECIMEN Ordering Facility: [facility] Address: [address] [place] [address] Performed By: #### 1 988-5 #### [facility] CLIA [id number] [address] [place] [address] TB NIL 0.02 IU/mL Normal <=8.00 [facility] Comment on above: Order Comment: Speci men Type: BLOOD SPECIMEN Ordering Facility: [facility] Address: [address] [place] [address] Performed By: #### 1 988-5 #### [facility] CLIA [id number] [address] [place] [address] [place] TB1 AG MINUS NIL 0.00 IU/mL Normal <0.35 [facility] Comment on above: Order Comment: Speci men Type: BLOOD SPECIMEN Ordering Facility: [facility] Address: [address] [place] [address] Performed By: #### 1 988-5 #### [facility] CLIA [id number] [address] [place] [address] [place] TB2 AG MINUS NIL 0.00 IU/mL Normal <0.35 [facility] Comment on above: Order Comment: Speci men Type: BLOOD SPECIMEN Ordering Facility: [facility] Address: [address] [place] [address] Performed By: #### 1 988-5 #### [facility] CLIA [id number] [address] [place] [address] [place] CBC W Auto Differential pane l (Bld)on 02-11-2025 Basophils (Bld) [#/Vol] 0.07 10*3/uL Normal <0.11 [facility] Comment on above: Order Comment: Speci men Type: BLOOD SPECIMEN Ordering Facility: [facility] Address: [address] [place] [address] Performed By: #### 2 4323-8 #### [facility] CLIA [id number] [address] [place] [address] [place] Basophils/100 WBC (Bld) 0.9 % Normal [facility] Comment on above: Order Comment: Speci men Type: BLOOD SPECIMEN Ordering Facility: [facility] Address: [address] [place] [address] Performed By: #### 2 4323-8 #### [facility] CLIA [id number] [address] [place] [address] [place] Differential cell count method Nom (Bld) Auto Normal [facility] Comment on above: Order Comment: Speci men Type: BLOOD SPECIMEN Ordering Facility: [facility] Address: [address] [place] [address] Performed By: #### 2 4323-8 #### [facility] CLIA [id number] [address] [place] [address] [place] Eosinophils (Bld) [#/Vol] 0.28 10*3/uL Normal <0.46 [facility] Comment on above: Order Comment: Speci men Type: BLOOD SPECIMEN Ordering Facility: [facility] Address: [address] [place] [address] Performed By: #### 2 4323-8 #### [facility] CLIA [id number] [address] [place] [address] [place] Eosinophils/100 WBC (Bld) 3.7 % Normal [facility] Comment on above: Order Comment: Speci men Type: BLOOD SPECIMEN Ordering Facility: [facility] Address: [address] [place] [address] Performed By: #### 2 4323-8 #### [facility] CLIA [id number] [address] [place] [address] [place] Erythrocyte distribution width (RBC) [Ratio] 12.7 % Normal 11.5-15.0 [facility] Comment on above: Order Comment: Speci men Type: BLOOD SPECIMEN Ordering Facility: [facility] Address: [address] [place] [address] Performed By: #### 2 4323-8 #### [facility] CLIA [id number] [address] [place], [place] [address] [place] Hematocrit (Bld) [Volume fraction] 43.7 % Normal 36.0-46.0 [facility] Comment on above: Order Comment: Speci men Type: BLOOD SPECIMEN Ordering Facility: [facility] Address: [address] [place] [address] Performed By: #### 2 4323-8 #### [facility] CLIA [id number] [address] [place] [address] [place] Hemoglobin (Bld) [Mass/Vol] 13.8 g/dL Normal 11.5-15.5 [facility] Comment on above: Order Comment: Speci men Type: BLOOD SPECIMEN Ordering Facility: [facility] Address: [address] [place] [address] Performed By: #### 2 4323-8 #### [facility] CLIA [id number] [address] [place] [address] [place] Immature granulocytes (Bld) [#/Vol] 0.03 10*3/uL Normal <0.10 [facility] Comment on above: Order Comment: Speci men Type: BLOOD SPECIMEN Ordering Facility: [facility] Address: [address] [place] [address] Performed By: #### 2 4323-8 #### [facility] CLIA [id number] [address] [place] [address] [place] Immature granulocytes/100 WBC (Bld) 0.4 % Normal [facility] Comment on above: Order Comment: Speci men Type: BLOOD SPECIMEN Ordering Facility: [facility] Address: [address] [place] [address] Performed By: #### 2 4323-8 #### [facility] CLIA [id number] [address] [place] [address] [place] Lymphocytes (Bld) [#/Vol] 2.66 10*3/uL Normal 1.00-4.00 [facility] Comment on above: Order Comment: Speci men Type: BLOOD SPECIMEN Ordering Facility: [facility] Address: [address] [place] [address] Performed By: #### 2 4323-8 #### [facility] CLIA [id number] [address] [place] [address] STATES [facility] Lymphocytes/100 WBC (Bld) 35.6 % Normal [facility] Comment on above: Order Comment: Speci men Type: BLOOD SPECIMEN Ordering Facility: [facility] Address: [address] [place] [address] Performed By: #### 2 4323-8 #### [facility] CLIA [id number] [address] [place] [address] [place] MCH (RBC) [Entitic mass] 29.4 pg Normal 26.0-34.0 [facility] Comment on above: Order Comment: Speci men Type: BLOOD SPECIMEN Ordering Facility: [facility] Address: [address] [place] [address] Performed By: #### 2 4323-8 #### [facility] CLIA [id number] [address] [place] [address] [place] MCHC (RBC) [Mass/Vol] 31.6 g/dL Normal 30.5-36.0 [facility] Comment on above: Order Comment: Speci men Type: BLOOD SPECIMEN Ordering Facility: [facility] Address: [address] [place] [address] Performed By: #### 2 4323-8 #### [facility] CLIA [id number] [address] [place] [address] [place] MCV (RBC) [Entitic vol] 93.2 fL Normal 80.0-100.0 [facility] Comment on above: Order Comment: Speci men Type: BLOOD SPECIMEN Ordering Facility: [facility] Address: [address] [place] [address] Performed By: #### 2 4323-8 #### [facility] CLIA [id number] [address] [place] [address] [place] Monocytes (Bld) [#/Vol] 0.60 10*3/uL Normal <0.87 [facility] Comment on above: Order Comment: Speci men Type: BLOOD SPECIMEN Ordering Facility: [facility] Address: [address] [place] [address] Performed By: #### 2 4323-8 #### [facility] CLIA [id number] [address] [place] [address] [place] Monocytes/100 WBC (Bld) 8.0 % Normal [facility] Comment on above: Order Comment: Speci men Type: BLOOD SPECIMEN Ordering Facility: [facility] Address: [address] [place] [address] Performed By: #### 2 4323-8 #### [facility] CLIA [id number] [address] [place] [address] [place] Neutrophils (Bld) [#/Vol] 3.83 10*3/uL Normal 1.45-7.50 [facility] Comment on above: Order Comment: Speci men Type: BLOOD SPECIMEN Ordering Facility: [facility] Address: [address] [place] [address] Performed By: #### 2 4323-8 #### [facility] CLIA [id number] [address] [place] [address] [place] Neutrophils/100 WBC (Bld) 51.4 % Normal [facility] Comment on above: Order Comment: Speci men Type: BLOOD SPECIMEN Ordering Facility: [facility] Address: [address] [place] [address] Performed By: #### 2 4323-8 #### [facility] CLIA [id number] [address] [place] [address] [place] Nucleated RBC (Bld) [#/Vol] 10*3/uL Normal <0.01 [facility] Comment on above: Order Comment: Speci men Type: BLOOD SPECIMEN Ordering Facility: [facility] Address: [address] [place] [address] Performed By: #### 2 4323-8 #### [facility] CLIA [id number] [address] [place] [address] [place] Nucleated RBC/100 WBC (Bld) [Ratio] 0.0 /100 WBC Normal [facility] Comment on above: Order Comment: Speci men Type: BLOOD SPECIMEN Ordering Facility: [facility] Address: [address] [place] [address] Performed By: #### 2 4323-8 #### [facility] CLIA [id number] [address] [place] [address] [place] Platelet mean volume (Bld) [Entitic vol] 10.4 fL Normal 9.0-12.7 [facility] Comment on above: Order Comment: Speci men Type: BLOOD SPECIMEN Ordering Facility: [facility] Address: [address] [place] [address] Performed By: #### 2 4323-8 #### [facility] CLIA [id number] [address] [place] [address] [place] Platelets (Bld) [#/Vol] 252 10*3/uL Normal 150-400 [facility] Comment on above: Order Comment: Speci men Type: BLOOD SPECIMEN Ordering Facility: [facility] Address: [address] [place] [address] Performed By: #### 2 4323-8 #### [facility] CLIA [id number] [address] [place] [address] [place] RBC (Bld) [#/Vol] 4.69 10*6/uL Normal 3.90-5.20 [facility] Comment on above: Order Comment: Speci men Type: BLOOD SPECIMEN Ordering Facility: [facility] Address: [address] [place] [address] Performed By: #### 2 4323-8 #### [facility] CLIA [id number] [address] [place] [address] [place] WBC (Bld) [#/Vol] 7.47 10*3/uL Normal 3.70-11.00 [facility] Comment on above: Order Comment: Speci men Type: BLOOD SPECIMEN Ordering Facility: [facility] Address: [address] [place] [address] Performed By: #### 2 4323-8 #### [facility] CLIA [id number] [address] [place] [address] [place] CRP SerPl-mCncon 02-11-2025 CRP [Mass/Vol] mg/L Normal <0.9 [facility] Comment on above: Order Comment: Speci men Type: BLOOD SPECIMEN Ordering Facility: [facility] Address: [address] [place] [address] Performed By: #### 1 988-5 #### [facility] CLIA [id number] [address] [place] [address] [place] Comprehensive metabolic 2000 panelon 02-11-2025 Albumin [Mass/Vol] 4.5 g/dL Normal 3.9-4.9 [facility] Comment on above: Order Comment: Speci men Type: BLOOD SPECIMEN Ordering Facility: [facility] Address: [address] [place] [address] Performed By: #### 2 4323-8 #### [facility] CLIA [id number] [address] [place] [address] [place] ALP [Catalytic activity/Vol] 72 U/L Normal 34-123 [facility] Comment on above: Order Comment: Speci men Type: BLOOD SPECIMEN Ordering Facility: [facility] Address: [address] [place] [address] Performed By: #### 2 4323-8 #### [facility] CLIA [id number] [address] [place] [address] [place] ALT [Catalytic activity/Vol] 26 U/L Normal 7-38 [facility] Comment on above: Order Comment: Speci men Type: BLOOD SPECIMEN Ordering Facility: [facility] Address: [address] [place] [address] Performed By: #### 2 4323-8 #### [facility] CLIA [id number] [address] [place] [address] [place] Anion gap [Moles/Vol] 14 mmol/L Normal 8-15 [facility] Comment on above: Order Comment: Speci men Type: BLOOD SPECIMEN Ordering Facility: [facility] Address: [address] [place] [address] Performed By: #### 2 4323-8 #### [facility] CLIA [id number] [address] [place] [address] [place] AST [Catalytic activity/Vol] 24 U/L Normal 13-35 [facility] Comment on above: Order Comment: Speci men Type: BLOOD SPECIMEN Ordering Facility: [facility] Address: [address] [place] [address] Performed By: #### 2 4323-8 #### [id number] [address] [place] [address] [place] Bilirubin [Mass/Vol] 0.3 mg/dL Normal 0.2-1.3 [facility] Comment on above: Order Comment: Speci men Type: BLOOD SPECIMEN Ordering Facility: [facility] Address: [address] [place] [address] Performed By: #### 2 4323-8 #### [facility] CLIA [id number] [address] [place] [address] [place] Calcium [Mass/Vol] 9.8 mg/dL Normal 8.5-10.2 [facility] Comment on above: Order Comment: Speci men Type: BLOOD SPECIMEN Ordering Facility: [facility] Address: [address] [place] [address] Performed By: #### 2 4323-8 #### [facility] CLIA [id number] [address] [place] [address] [place] Chloride [Moles/Vol] 99 mmol/L Normal 98-107 [facility] Comment on above: Order Comment: Speci men Type: BLOOD SPECIMEN Ordering Facility: [facility] Address: [address] [place] [address] Performed By: #### 2 4323-8 #### [facility] CLIA [id number] [address] [place] [address] [place] CO2 [Moles/Vol] 26 mmol/L Normal 22-30 [facility] Comment on above: Order Comment: Speci men Type: BLOOD SPECIMEN Ordering Facility: [facility] Address: [address] [place] [address] Performed By: #### 2 4323-8 #### [facility] CLIA [id number] [address] [place] [address] [place] Creatinine [Mass/Vol] 0.84 mg/dL Normal 0.58-0.96 [facility] Comment on above: Order Comment: Speci men Type: BLOOD SPECIMEN Ordering Facility: [facility] Address: [address] [place] [address] Performed By: #### 2 4323-8 #### [facility] CLIA [id number] [address] [place] [address] [place] Creatinine and Glomerular filtration rate.predicted panel (S/P/Bld) 75 mL/min/1.73m??? Normal >=60 [facility] Comment on above: Order Comment: Speci men Type: BLOOD SPECIMEN Ordering Facility: [facility] Address: [address] [place] [address] Result Comment: Mariza mated Glomerular Filtration Rate [...] GFR. Performed By: #### 2 4323-8 #### [facility] [id number] [address] [place] [address] [place] Glucose [Mass/Vol] 86 mg/dL Normal 74-99 [facility] Comment on above: Order Comment: Pauly magallanes Type: BLOOD SPECIMEN Ordering Facility: [facility] Address: [address] [place] [address] Result Comment: The [place] [employer] (ADA) provides guidance for cutoff [...] Standards of Medical Care in Diabetes 2016, [place] [employer]. Diabetes Care. 2016.39(Suppl 1). Performed By: #### 2 4323-8 #### [facility] [id number] [address] [place] [address] [place] Potassium [Moles/Vol] 3.6 mmol/L Low 3.7-5.1 [facility] Comment on above: Order Comment: Pauly magallanes Type: BLOOD SPECIMEN Ordering Facility: [facility] Address: [address] [place] [address] Performed By: #### 2 4323-8 #### [id number] [address] [place] [address] [place] Protein [Mass/Vol] 7.2 g/dL Normal 6.3-8.0 [facility] Comment on above: Order Comment: Speci men Type: BLOOD SPECIMEN Ordering Facility: [facility] Address: [address] [place] [address] Performed By: #### 2 4323-8 #### [facility] [id number] [address] [place] [address] [place] Sodium [Moles/Vol] 139 mmol/L Normal 136-144 [facility] Comment on above: Order Comment: Speci men Type: BLOOD SPECIMEN Ordering Facility: [facility] Address: [address] [place] [address] Performed By: #### 2 4323-8 #### [facility] [id number] [address] [place] [address] [place] Urea nitrogen [Mass/Vol] 22 mg/dL High 7-21 [facility] Comment on above: Order Comment: Speci men Type: BLOOD SPECIMEN Ordering Facility: [facility] Address: [address] [place] [address] Performed By: #### 2 4323-8 #### [facility] [id number] [address] [place] [address] [place] ESR Westergren method (Bld) [Velocity]on 02-11-2025 ESR (Bld) [Velocity] 2 mm/h Normal 0-20 [facility] Comment on above: Order Comment: Speci men Type: BLOOD SPECIMEN Ordering Facility: [facility] Address: [address] [place] [address] Performed By: #### 2 4323-8 #### [facility] [id number] [address] [place] [address] [place] HBV core Ab Ser Qlon 025 HBV core Ab Ql (S) Negative Normal Negative [facility] Comment on above: Order Comment: Speci men Type: BLOOD SPECIMEN Ordering Facility: [facility] Address: [address] [place] [address] Result Comment: No e vidence of current or past infection with Hepatitis B virus. Should recent infection be suspected, repeat testing may be considered 3-4 weeks after this draw. Performed By: #### 2 4323-8 #### [facility] CLIA [id number] [address] [place] [address] [place] HBV surface Ab Ql (S)on 02-02 HBV surface Ab Qn (S) <8.00 Normal [facility] Comment on above: Order Comment: Speci men Type: BLOOD SPECIMEN Ordering Facility: [facility] Address: [address] [place] [address] Result Comment: <8 m IU/mL: No serological evidence of immunity to Hepatitis B Virus. >/= 8 to <12 mIU/mL: No serological evidence of immunity to Hepatitis B Virus. >/= 12 mIU/mL: Consistent with serological evidence of immunity to Hepatitis B Virus. Performed By: #### 2 4323-8 #### [facility] CLIA [id number] [address] [place] [address] [place] HBV surface Ab Ser Qlon 02-02 HBV surface Ab Ql (S) Negative Normal [facility] Comment on above: Order Comment: Speci men Type: BLOOD SPECIMEN Ordering Facility: [facility] Address: [address] [place] [address] Result Comment: No s erological evidence of immunity to Hepatitis B Virus. Performed By: #### 2 4323-8 #### [facility] CLIA [id number] [address] [place] [address] [place] HBV surface Ag Ser Qlon 02-02 HBV surface Ag Ql (S) Negative Normal Negative [facility] Comment on above: Order Comment: Speci men Type: BLOOD SPECIMEN Ordering Facility: [facility] Address: [address] [place] [address] Performed By: #### 2 4323-8 #### [facility] CLIA [id number] [address] [place] [address] [place] HCV Ab Ser Qlon 02-11-2025 HCV Ab Ql (S) Negative Normal Negative [facility] Comment on above: Order Comment: Speci men Type: BLOOD SPECIMEN Ordering Facility: [facility] Address: [address] [place] [address] Result Comment: The result suggests no evidence of infection with Hepatitis C virus. Should recent infection be suspected, repeat testing may be considered 4-6 weeks after this draw. Performed By: #### 1 988-5 #### [facility] CLIA [id number] [address] [place] [address] [place] [address] [place] Pulmonary Visit Reporton Pulmonary Visit Report Normal [facility] Basic Metabolic Profile (BMP )on 02-06-2025 BUN/CRE 30.1 RATIO High 10-20 [facility] Comment on above: Performed By: #### L 500.2500 ####[facility] [address] [place], [address] Calcium [Mass/Vol] 10.0 mg/dL Normal 7.6-11.0 [facility] Comment on above: Performed By: #### L 500.2500 ####[facility] [address] [place], [address] Chloride [Moles/Vol] 103 mmol/L Normal 98-108 [facility] Comment on above: Performed By: #### L 500.2500 ####[facility] [address] [place], [address] CO2 [Moles/Vol] 27.2 mmol/L Normal 21.0-32.0 [facility] Comment on above: Performed By: #### L 500.2500 ####[facility] [address] [place], [address] Creatinine [Mass/Vol] 0.94 mg/dL Normal 0.70-1.20 [facility] Comment on above: Performed By: #### L 500.2500 ####[facility] [address] [place], [address] GAP 11 Normal 5-15 [facility] Comment on above: Performed By: #### L 500.2500 ####[facility] [address] [place], [address] GFR/1.73 sq M.predicted among non-blacks MDRD (S/P/Bld) [Vol rate/Area] 65 mL/min/{1.73_m2} Normal >60 [facility] Comment on above: Result Comment: mL/m in/1.73m2 CKD-EPI Creatinine Equation (2020) Performed By: #### L 500.2500 ####[facility] [address] [place], [address] Glucose [Mass/Vol] 103 mg/dL High 70-99 [facility] Comment on above: Performed By: #### L 500.2500 ####[facility] [address] [place], [address] Potassium [Moles/Vol] 4.5 mmol/L Normal 3.3-5.1 [facility] Comment on above: Performed By: #### L 500.2500 ####[facility] [address] [place], [address] Sodium [Moles/Vol] 141 mmol/L Normal 133-145 [facility] Comment on above: Performed By: #### L 500.2500 ####[facility] [address] [place], [address] Urea nitrogen [Mass/Vol] 28 mg/dL High 4-19 [facility] Comment on above: Performed By: #### L 500.2500 ####[facility] [address] [place], [address] OT D/C Summaryon 02-04-2025 OT D/C Summary Normal [facility] Low Dose CT Lung Screeningon 01-30-[address] Lung Screening Normal [facility] L/S Spine Min 4 Viewson 01-03 L/S Spine Min 4 Views Normal [facility] Orthopedic Visit Reporton Orthopedic Visit Report Normal [facility] Renal Artery Duplex Ultrasou ndon 01-24-2025 Renal Artery Duplex Ultrasound Normal [facility] Office Visit Reporton 2024 Office Visit Report Normal [facility] Inital Evaluation (1) - PTon 01-22-2025 Inital Evaluation (1) - PT Normal [facility] Orthopedic Visit Reporton Orthopedic Visit Report Normal [facility] Vitamin D 1,25-Dihydroxyon 0 01-18-2025 VIT D 1,25 DIHY 25.9 pg/mL Normal 24.8-81.5 [facility] Comment on above: Result Comment: Perf ormed at: - [facility] [address] [id number] Director: Dereck Buchanan MD, Phone: [phone] Performed By: #### L 3290.0960 ####[facility] [address] [place], [address] Upper Ext Joint Only(Routine )on 01-15-2025 Upper Ext Joint Only(Routine) Normal [facility] Neurology Visit Reporton Neurology Visit Report Normal [facility] Basic Metabolic Profile (BMP )on 01-07-2025 BUN/CRE 21.3 RATIO High 10-20 [facility] Comment on above: Performed By: #### L 500.2500 ####[facility] [address] [place], [address] Calcium [Mass/Vol] 9.9 mg/dL Normal 7.6-11.0 [facility] Comment on above: Performed By: #### L 500.2500 ####[facility] [address] [place], [address] Chloride [Moles/Vol] 103 mmol/L Normal 98-108 [facility] Comment on above: Performed By: #### L 500.2500 ####[facility] [address] [place], [address] CO2 [Moles/Vol] 27.7 mmol/L Normal 21.0-32.0 [facility] Comment on above: Performed By: #### L 500.2500 ####[facility] [address] [place], [address] Creatinine [Mass/Vol] 0.92 mg/dL Normal 0.70-1.20 [facility] Comment on above: Performed By: #### L 500.2500 ####[facility] [address] [place], [address] GAP 11 Normal 5-15 [facility] Comment on above: Performed By: #### L 500.2500 ####[facility] [address] [place], [address] GFR/1.73 sq M.predicted among non-blacks MDRD (S/P/Bld) [Vol rate/Area] 67 mL/min/{1.73_m2} Normal >60 [facility] Comment on above: Result Comment: mL/m in/1.73m2 CKD-EPI Creatinine Equation (2020) Performed By: #### L 500.2500 ####[facility] [address] [place], [address] Glucose [Mass/Vol] 92 mg/dL Normal 70-99 [facility] Comment on above: Performed By: #### L 500.2500 ####[facility] [address] [place], [address] Potassium [Moles/Vol] 4.0 mmol/L Normal 3.3-5.1 [facility] Comment on above: Performed By: #### L 500.2500 ####[facility] [address] [place], [address] Sodium [Moles/Vol] 141 mmol/L Normal 133-145 [facility] Comment on above: Performed By: #### L 500.2500 ####[facility] [address] [place], [address] Urea nitrogen [Mass/Vol] 20 mg/dL High 4-19 [facility] Comment on above: Performed By: #### L 500.2500 ####[facility] [address] [place], [address] OT General Evaluationon 05-0 OT General Evaluation Normal [facility] CRPon 01-01-2025 C-REACTIVE PROT < 3.00 Normal 0.0-3.0 [facility] Comment on above: Performed By: #### L 501.6710, L101.9900 ####[facility] [address] [place], [address] Erythrocyte Sed Rateon 01-01 SED RATE 4 mm/hr Normal 0-30 [facility] Comment on above: Performed By: #### L 501.6710, L101.9900 ####[facility] [address] [place], [address] Basic Metabolic Profile (BMP )on 12-29-2024 BUN/CRE 17.5 RATIO Normal 10-20 [facility] Comment on above: Performed By: #### L 500.2500, L100.0100 ####[facility] [address] [place], [address] Calcium [Mass/Vol] 10.4 mg/dL Normal 7.6-11.0 [facility] Comment on above: Performed By: #### L 500.2500, L100.0100 ####[facility] [address] [place], [address] Chloride [Moles/Vol] 102 mmol/L Normal 98-108 [facility] Comment on above: Performed By: #### L 500.2500, L100.0100 ####[facility] [address] [place], [address] CO2 [Moles/Vol] 28.3 mmol/L Normal 21.0-32.0 [facility] Comment on above: Performed By: #### L 500.2500, L100.0100 ####[facility] [address] [place], [address] Creatinine [Mass/Vol] 1.00 mg/dL Normal 0.70-1.20 [facility] Comment on above: Performed By: #### L 500.2500, L100.0100 ####[facility] [address] [place], [address] ECRCL 41.45 ml/min Low 50-250 [facility] Comment on above: Performed By: #### L 500.2500, L100.0100 ####[facility] [address] [place], [address] GAP 12 Normal 5-15 [facility] Comment on above: Performed By: #### L 500.2500, L100.0100 ####[facility] [address] [place], [address] GFR/1.73 sq M.predicted among non-blacks MDRD (S/P/Bld) [Vol rate/Area] 61 mL/min/{1.73_m2} Normal >60 [facility] Comment on above: Result Comment: mL/m in/1.73m2 CKD-EPI Creatinine Equation (2020) Performed By: #### L 500.2500, L100.0100 ####[facility] [address] [place], [address] Glucose [Mass/Vol] 100 mg/dL High 70-99 [facility] Comment on above: Performed By: #### L 500.2500, L100.0100 ####[facility] [address] [place], [address] Potassium [Moles/Vol] 4.0 mmol/L Normal 3.3-5.1 [facility] Comment on above: Performed By: #### L 500.2500, L100.0100 ####[facility] [address] [place], [address] Sodium [Moles/Vol] 142 mmol/L Normal 133-145 [facility] Comment on above: Performed By: #### L 500.2500, L100.0100 ####[facility] [address] [place], [address] Urea nitrogen [Mass/Vol] 18 mg/dL Normal 4-19 [facility] Comment on above: Performed By: #### L 500.2500, L100.0100 ####[facility] [address] [place], [address] CBC W/Diff, Automatedon 12-04 Absolute Lymph 1.72 X10 3/uL Normal 0.83-4.51 [facility] Comment on above: Performed By: #### L 500.2500, L100.0100 ####[facility] [address] [place], [address] Absolute Neut 3.4 X10 3/uL Normal 2.0-7.7 [facility] Comment on above: Performed By: #### L 500.2500, L100.0100 ####[facility] [address] [place], [address] Basophils/100 WBC (Bld) 1.5 % High 0-1 [facility] Comment on above: Performed By: #### L 500.2500, L100.0100 ####[facility] [address] [place], [address] Eosinophils/100 WBC (Bld) 10.6 % High 0-5 [facility] Comment on above: Performed By: #### L 500.2500, L100.0100 ####[facility] [address] [place], [address] Erythrocyte distribution width (RBC) [Ratio] 13.4 % Normal 11.6-14.6 [facility] Comment on above: Performed By: #### L 500.2500, L100.0100 ####[facility] [address] [place], [address] Hematocrit (Bld) [Volume fraction] 45.2 % Normal 37-47 [facility] Comment on above: Performed By: #### L 500.2500, L100.0100 ####[facility] [address] [place], [address] Hemoglobin (Bld) [Mass/Vol] 14.4 g/dL Normal 12.0-15.0 [facility] Comment on above: Performed By: #### L 500.2500, L100.0100 ####[facility] [address] [place], [address] IG% 0.200 Normal 0.0-0.9 [facility] Comment on above: Result Comment: IG% - Immature Granulocytes (promyelocytes, myelocytes andmetamyelocytes) > 1% indicates that a LEFT SHIFT is Present. Performed By: #### L 500.2500, L100.0100 ####[facility] [address] [place], [address] Lymphocytes/100 WBC (Bld) 26.5 % Normal 19-41 [facility] Comment on above: Performed By: #### L 500.2500, L100.0100 ####[facility] [address] [place], [address] MCH (RBC) [Entitic mass] 29.7 pg Normal 27.0-32.0 [facility] Comment on above: Performed By: #### L 500.2500, L100.0100 ####[facility] [address] [place], [address] MCHC (RBC) [Mass/Vol] 31.9 g/dL Low 32-36 [facility] Comment on above: Performed By: #### L 500.2500, L100.0100 ####[facility] [address] [place], [address] MCV (RBC) [Entitic vol] 93.2 fL Normal 81-99 [facility] Comment on above: Performed By: #### L 500.2500, L100.0100 ####[facility] [address] [place], [address] Monocytes/100 WBC (Bld) 8.8 % Normal 0-10 [facility] Comment on above: Performed By: #### L 500.2500, L100.0100 ####[facility] [address] [place], [address] Neutrophils/100 WBC (Bld) 52.4 % Normal 47-70 [facility] Comment on above: Performed By: #### L 500.2500, L100.0100 ####[facility] [address] [place], [address] Nucleated RBC (Bld) [#/Vol] 0 10*3/uL Normal 0-5 [facility] Comment on above: Performed By: #### L 500.2500, L100.0100 ####[facility] [address] [place], [address] Platelet mean volume (Bld) [Entitic vol] 10.8 fL Normal 6.2-12.0 [facility] Comment on above: Performed By: #### L 500.2500, L100.0100 ####[facility] [address] [place], [address] Platelets (Bld) [#/Vol] 230 10*3/uL Normal 150-450 [facility] Comment on above: Performed By: #### L 500.2500, L100.0100 ####[facility] [address] [place], [address] RBC (Bld) [#/Vol] 4.85 10*6/uL Normal 4.2-5.4 [facility] Comment on above: Performed By: #### L 500.2500, L100.0100 ####[facility] [address] [place], [address] RDW SD 45.3 fl High 35.1-43.9 [facility] Comment on above: Performed By: #### L 500.2500, L100.0100 ####[facility] [address] [place], [address] WBC (Bld) [#/Vol] 6.5 10*3/uL Normal 4.4-11.0 [facility] Comment on above: Performed By: #### L 500.2500, L100.0100 ####[facility] [address] [place], [address] CNOVon 12-29-2024 CNOV Office Visit (UCTR ) LELE PANG ([id number]) 1955 F Date Time Provider Department 12/29/24 1:45 PM JOSEFA SERNA [facility] During your visit today, we recorded the following information about you: Josefa Serna APRN.LUMBER BUYER 12/29/2024 1:50 PM Signed Patient came in [...] Status:Closed by JOSEFA SERNA on 12/29/24 Normal [facility] CTA Head AND Neck W/ Contras ton 12-29-2024 CTA Head AND Neck W/ Contrast Normal [facility] Emergency Department Summary on 12-29-2024 Emergency Department Summary Normal [facility] Orthopedic Visit Reporton Orthopedic Visit Report Normal [facility] Office Visit Reporton 2024 Office Visit Report Normal [facility] Orthopedic Visit Reporton Orthopedic Visit Report Normal [facility] Dexa Bone Density Studyon Dexa Bone Density Study Normal [facility] Spine Lumbar (Routine)on Spine Lumbar (Routine) Normal [facility] Orthopedic Visit Reporton Orthopedic Visit Report Normal [facility] CNOVon 12-05-2024 CNOV Office Visit (RHWSTR ) LELE PANG ([id number]) 1955 F Date Time Provider Department 12/05/24 11:00 AM WINNIE HERNANDEZ RHWSTR During your visit today, we recorded the following information about you: Pulse Blood pressure Weight Height 61/minute 146/95 57.5 kg 1.473 m Winnie Hernandez PA-C 12/05/2024 9:46 PM Signed Rheumatology CONSULTATION Date of Service: 12/05/2024 Patient: Lele Pang Medical Record: [id number] Primary Care Physician: Yady Vera MD Last Rheumatology visit: None at [facility] Referring Provider: Daron Kraft [facility] [address] Lele Poly is here today at request of Dr. Mark specifically for consultation of my opinion in regards to the chief complaint listed below. Correspondence will be shared today via the [employer] electronic health record or through regular mail, where applicable. History of Present Illness Lele is a 69-year-old female with a history of RA, presenting for evaluation and management. She is currently taking leflunomide. Lele is both RF - 34 (09/26/2023) and CCP positive. Pain Evaluation 05/21/2019 05/21/2019 05/21/2019 11/08/2022 11/25/2022 Pain Evaluation Pain Score 7 4 7 5 7 Location Back [facility]-Left Shoulder-Right Description Aching Aching Sore Radiating;Burning;Dull Duration [...] (more content not included)... Normal [facility] Jad 12-05-2024 YAMILKA Telephone (RHWSTR) LELE PANG ([id number]) 1955 F Date Time Provider Department 12/05/24 WINNIE HERNANDEZ RHWSTR During your visit today, we recorded the following information about you: Whit Jang MA 12/05/2024 12:05 PM Signed Message left on [employer] at [facility] for past records for this patient to be faxed to this office. Whit Jang MA 12/06/2024 2:49 PM Signed 109 pages of records received via fax from [facility]. Can be found under scanned documents. 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] 05/03/2019 Former smoker [Z87.891] 05/03/2019 Neuropathy ([facility]) [G62.9] 05/03/2019 History of ETOH abuse [F10.11] 05/03/2019 Anxiety and depression [F41.9, F32.A] 05/03/2019 Lumbosacral spondylosis without myelopathy [M47*05/07/2019 Spinal stenosis, lumbar region, without neuroge*05/07/2019 Lumbosacral radiculitis [M54.17] 05/21/2019 Encounter Status:Closed by WHIT JANG on 12/06/24 Normal [facility] Discharge Instructionon 11-03 Discharge Instruction Normal [facility] MR/POSTOP.ANEon 11-26-2024 MR/POSTOP.ANE Normal [facility] MR/ZJJFFRHN2ag 11-26-2024 MR/POSTOPAN2 Normal [facility] Operative Reporton Operative Report Normal [facility] Orthopedic Visit Reporton Orthopedic Visit Report Normal [facility] Shoulder min 2 Viewson 11-19 Shoulder min 2 Views Normal [facility] Lumbar Spine 2 or 3 Viewson 11-13-2024 Lumbar Spine 2 or 3 Views Normal [facility] Orthopedic Visit Reporton Orthopedic Visit Report Normal [facility] MR/PAT.ANEon 11-12-2024 MR/PAT.ANE Normal [facility] STAR Comprehensive Panelon ANTI-DNA (DS)AB <1 Normal 0-9 [facility] Comment on above: Result Comment: Nega tive <5 Equivocal 5 - 9 Positive >9 Performed By: #### L 505.7010, L101.9900, L500.4100, L500.4050, L4600.0100, L3100.7870, L3100.5440 ####[facility] [address] [place], [place], [id number] ANTISCLERODERM <0.2 Normal 0.0-0.9 [facility] Comment on above: Performed By: #### L 505.7010, L101.9900, L500.4100, L500.4050, L4600.0100, L3100.7870, L3100.5440 ####[facility] [address] [place], [place], [phone] CCP IgG Antibodieson 025 CCP IgG Ab. > 250 High 0-19 [facility] Comment on above: Result Comment: Nega tive <20 Weak positive 20 - 39 Moderate positive 40 - 59 Strong positive >59Performed at: [facility] [place], [place] [id number] Director: Fady Alfaro PhD, Phone: [phone] Performed By: #### L 505.7010, L101.9900, L500.4100, L500.4050, L4600.0100, L3100.7870, L3100.5440 ####[facility] [address] [place], [place], [phone] CRP, High Sensitivity [id number] on 10-25-2024 CRP, HIGH SENS 0.36 mg/L Normal 0.00-3.00 [facility] Comment on above: Result Comment: Rela tive Risk for Future Cardiovascular Event Low <1.00 Average 1.00 - 3.00 High >3.00Performed at: [facility] [address] [place], [place] [id number] Director: Fady Alfaro PhD, Phone: [phone] Performed By: #### L 505.7010, L101.9900, L500.4100, L500.4050, L4600.0100, L3100.7870, L3100.5440 ####[facility] [address] [place], [address] Neurology Visit Reporton Neurology Visit Report Normal [facility] Comprehensive Metabolic Prof ilon 10-23-2024 Albumin [Mass/Vol] 3.8 g/dL Normal 3.2-5.0 [facility] Comment on above: Performed By: #### L 505.7010, L101.9900, L500.4100, L500.4050, L4600.0100, L3100.7870, L3100.5440 ####[facility] [address] [place], [address] Albumin/Globulin [Mass ratio] 1.1 {ratio} Normal 0.9-2.4 [facility] Comment on above: Performed By: #### L 505.7010, L101.9900, L500.4100, L500.4050, L4600.0100, L3100.7870, L3100.5440 ####[facility] [address] [place], [address] ALK P 71 U/L Normal 45-117 [facility] Comment on above: Performed By: #### L 505.7010, L101.9900, L500.4100, L500.4050, L4600.0100, L3100.7870, L3100.5440 ####[facility] [address] [place], [address] ALT [Catalytic activity/Vol] 38 U/L Normal 13-56 [facility] Comment on above: Performed By: #### L 505.7010, L101.9900, L500.4100, L500.4050, L4600.0100, L3100.7870, L3100.5440 ####[facility] [address] [place], [address] AST [Catalytic activity/Vol] 20 U/L Normal 15-37 [facility] Comment on above: Performed By: #### L 505.7010, L101.9900, L500.4100, L500.4050, L4600.0100, L3100.7870, L3100.5440 ####[facility] [address] [place], [address] Bilirubin [Mass/Vol] 0.50 mg/dL Normal 0.20-1.00 [facility] Comment on above: Result Comment: For patients on eltrombopag therapy, use of Dimension [place] TBIL is not recommended. Performed By: #### L 505.7010, L101.9900, L500.4100, L500.4050, L4600.0100, L3100.7870, L3100.5440 ####[facility] [address] [place], [address] BUN/CRE 24.9 RATIO High 10-20 [facility] Comment on above: Performed By: #### L 505.7010, L101.9900, L500.4100, L500.4050, L4600.0100, L3100.7870, L3100.5440 ####[facility] [address] [place], [address] CA,Total 9.4 mg/dL Normal 8.5-10.1 [facility] Comment on above: Performed By: #### L 505.7010, L101.9900, L500.4100, L500.4050, L4600.0100, L3100.7870, L3100.5440 ####[facility] [address] [place], [address] Chloride [Moles/Vol] 106 mmol/L Normal 98-107 [facility] Comment on above: Performed By: #### L 505.7010, L101.9900, L500.4100, L500.4050, L4600.0100, L3100.7870, L3100.5440 ####[facility] [address] [place], [address] CO2 [Moles/Vol] 26.0 mmol/L Normal 21.0-32.0 [facility] Comment on above: Performed By: #### L 505.7010, L101.9900, L500.4100, L500.4050, L4600.0100, L3100.7870, L3100.5440 ####[facility] [address] [place], [address] Creatinine [Mass/Vol] 0.92 mg/dL Normal 0.55-1.02 [facility] Comment on above: Result Comment: The validity of the calculated GFR GFRAA in patients over70 years has not been determined. Clinical correlation isessential. Performed By: #### L 505.7010, L101.9900, L500.4100, L500.4050, L4600.0100, L3100.7870, L3100.5440 ####[facility] [address] [place], [address] EST GFR - AA 77 mL/min Normal >60 [facility] Comment on above: Result Comment: Afri can Afghan GFR Calc Performed By: #### L 505.7010, L101.9900, L500.4100, L500.4050, L4600.0100, L3100.7870, L3100.5440 ####[facility] [address] [place], [address] GAP 8 Normal 5-15 [facility] Comment on above: Performed By: #### L 505.7010, L101.9900, L500.4100, L500.4050, L4600.0100, L3100.7870, L3100.5440 ####[facility] [address] [place], [address] GFR/1.73 sq M.predicted among non-blacks MDRD (S/P/Bld) [Vol rate/Area] 64 mL/min/{1.73_m2} Normal >60 [facility] Comment on above: Result Comment: Non- GFR Calc Performed By: #### L 505.7010, L101.9900, L500.4100, L500.4050, L4600.0100, L3100.7870, L3100.5440 ####[facility] [address] [place], [place], [phone] Globulin (S) [Mass/Vol] 3.4 g/dL Normal 2.2-4.2 [facility] Comment on above: Performed By: #### L 505.7010, L101.9900, L500.4100, L500.4050, L4600.0100, L3100.7870, L3100.5440 ####[facility] [address] [place], [place], [phone] Glucose [Mass/Vol] 91 mg/dL Normal 74-106 [facility] Comment on above: Performed By: #### L 505.7010, L101.9900, L500.4100, L500.4050, L4600.0100, L3100.7870, L3100.5440 ####[facility] [address] [place], [address] Potassium [Moles/Vol] 3.7 mmol/L Normal 3.5-5.1 [facility] Comment on above: Performed By: #### L 505.7010, L101.9900, L500.4100, L500.4050, L4600.0100, L3100.7870, L3100.5440 ####[facility] [address] [place], [address] Sodium [Moles/Vol] 140 mmol/L Normal 136-145 [facility] Comment on above: Performed By: #### L 505.7010, L101.9900, L500.4100, L500.4050, L4600.0100, L3100.7870, L3100.5440 ####[facility] [address] [place], [place], [phone] T PROT 7.2 g/dL Normal 6.4-8.2 [facility] Comment on above: Performed By: #### L 505.7010, L101.9900, L500.4100, L500.4050, L4600.0100, L3100.7870, L3100.5440 ####[facility] [address] [place], [place], [phone] Urea nitrogen [Mass/Vol] 23 mg/dL High 7-18 [facility] Comment on above: Performed By: #### L 505.7010, L101.9900, L500.4100, L500.4050, L4600.0100, L3100.7870, L3100.5440 ####[facility] [address] [place], [place], [phone] Erythrocyte Sed Rateon 10-23 SED RATE 7 mm/hr Normal 0-30 [facility] Comment on above: Performed By: #### L 505.7010, L101.9900, L500.4100, L500.4050, L4600.0100, L3100.7870, L3100.5440 ####[facility] [address] [place], [place], [phone] Lipid Profileon 10-23-2024 Cholesterol [Mass/Vol] 250 mg/dL High 200 [facility] Comment on above: Result Comment: <200 mg/dL Desirable 200-240 mg/dL Borderline >240 mg/dL High Risk Performed By: #### L 505.7010, L101.9900, L500.4100, L500.4050, L4600.0100, L3100.7870, L3100.5440 ####[facility] [address] [place], [address] Cholesterol in HDL [Mass/Vol] 133 mg/dL Normal [facility] Comment on above: Result Comment: The drugs N-Acetylcysteine and Metamizole may falselydepress this assay. Reference Range HDL <40 mg/dL Low HDL Cholesterol HDL >or= 60 mg/dL High HDL Cholesterol Performed By: #### L 505.7010, L101.9900, L500.4100, L500.4050, L4600.0100, L3100.7870, L3100.5440 ####[facility] [address] [place], [address] Cholesterol in LDL [Mass/Vol] 107 mg/dL Normal 0-130 [facility] Comment on above: Performed By: #### L 505.7010, L101.9900, L500.4100, L500.4050, L4600.0100, L3100.7870, L3100.5440 ####[facility] [address] [facility] [address] Cholesterol in VLDL [Mass/Vol] 10 mg/dL Normal 5-40 [facility] Comment on above: Performed By: #### L 505.7010, L101.9900, L500.4100, L500.4050, L4600.0100, L3100.7870, L3100.5440 ####[facility] [address] [place], [address] Triglyceride [Mass/Vol] 50 mg/dL Normal [facility] Comment on above: Result Comment: The drugs N-Acetylcysteine and Metamizole may falselydepress this assay.Serum Triglycerides Reference Interval Normal <150 mg/dL Borderline high 150 - 199 mg/dL High 200 - 499 mg/dL Very High > or = 500 mg/dL Performed By: #### L 505.7010, L101.9900, L500.4100, L500.4050, L4600.0100, L3100.7870, L3100.5440 ####[facility] [address] [place] [phone] Rheumatoid Factoron 10-23-19 25 RHEUMATOID FAC 27.0 IU/mL High <15 [facility] Comment on above: Performed By: #### L 505.7010, L101.9900, L500.4100, L500.4050, L4600.0100, L3100.7870, L3100.5440 ####[facility] [address] [place], [place], [phone] Orthopedic Visit Reporton Orthopedic Visit Report Normal [facility] Office Visit Reporton 2024 Office Visit Report Normal [facility] Neurology Visit Reporton Neurology Visit Report Normal [facility] Vitamin B1, Thiamineon 07-29 VIT B1 THIAMINE 94.5 nmol/L Normal 66.5-200.0 [facility] Comment on above: Order Comment: Test( s) [id number]. B1, Whole Bloodwas developed and its performance characteristicsdetermined by [employer]. It has not been cleared or approvedby the Food and Drug Administration. Result Comment: Perf ormed at: [facility] [address] [id number] Director: Dereck Buchanan MD, Phone: [phone] Performed By: #### L 506.0250, L501.9520, L3300.8000, L500.4050, L506.1000, L100.0500, L503.0105 ####[facility] [address] [place], [place], [phone] CBC-Complete Blood Cnt No Di ffon 07-25-2024 Erythrocyte distribution width (RBC) [Ratio] 13.1 % Normal 11.6-14.6 [facility] Comment on above: Order Comment: DR.BA CARCAMO ORDERED CBC,CMP,FOL,TSH,B12, B1MARK ALEJANDRA ORDERED B12 VITD Performed By: #### L 506.0250, L501.9520, L3300.8000, L500.4050, L506.1000, L100.0500, L503.0105 ####[facility] [address] [place], [address] Hematocrit (Bld) [Volume fraction] 38.6 % Normal 37-47 [facility] Comment on above: Order Comment: DR.BA CARCAMO ORDERED CBC,CMP,FOL,TSH,B12, B1MARK ROBERTS ORDERED B12 VITD Performed By: #### L 506.0250, L501.9520, L3300.8000, L500.4050, L506.1000, L100.0500, L503.0105 ####[facility] [address] [place], [address] Hemoglobin (Bld) [Mass/Vol] 12.2 g/dL Normal 12.0-15.0 [facility] Comment on above: Order Comment: DR.BA CARCAMO ORDERED CBC,CMP,FOL,TSH,B12, B1MARK ROBERTS ORDERED B12 VITD Performed By: #### L 506.0250, L501.9520, L3300.8000, L500.4050, L506.1000, L100.0500, L503.0105 ####[facility] [address] [place], [address] MCH (RBC) [Entitic mass] 28.6 pg Normal 27.0-32.0 [facility] Comment on above: Order Comment: DR.BA CARCAMO ORDERED CBC,CMP,FOL,TSH,B12, B1MARK ROBERTS ORDERED B12 VITD Performed By: #### L 506.0250, L501.9520, L3300.8000, L500.4050, L506.1000, L100.0500, L503.0105 ####[facility] [address] [place], [address] MCHC (RBC) [Mass/Vol] 31.6 g/dL Low 32-36 [facility] Comment on above: Order Comment: DR.BA CARCAMO ORDERED CBC,CMP,FOL,TSH,B12, B1MARK ROBERTS ORDERED B12 VITD Performed By: #### L 506.0250, L501.9520, L3300.8000, L500.4050, L506.1000, L100.0500, L503.0105 ####[facility] [address] [place], [address] MCV (RBC) [Entitic vol] 90.6 fL Normal 81-99 [facility] Comment on above: Order Comment: DR.BA CARCAMO ORDERED CBC,CMP,FOL,TSH,B12, B1MARK ROBERTS ORDERED B12 VITD Performed By: #### L 506.0250, L501.9520, L3300.8000, L500.4050, L506.1000, L100.0500, L503.0105 ####[facility] [address] [place], [address] Platelet mean volume (Bld) [Entitic vol] 10.4 fL Normal 6.2-12.0 [facility] Comment on above: Order Comment: DR.BA CARCAMO ORDERED CBC,CMP,FOL,TSH,B12, B1MARK ROBERTS ORDERED B12 VITD Performed By: #### L 506.0250, L501.9520, L3300.8000, L500.4050, L506.1000, L100.0500, L503.0105 ####[facility] [address] [place], [address] Platelets (Bld) [#/Vol] 264 10*3/uL Normal 150-450 [facility] Comment on above: Order Comment: DR.BA CARCAMO ORDERED CBC,CMP,FOL,TSH,B12, B1MARK ROBERTS ORDERED B12 VITD Performed By: #### L 506.0250, L501.9520, L3300.8000, L500.4050, L506.1000, L100.0500, L503.0105 ####[facility] [address] [place], [address] RBC (Bld) [#/Vol] 4.26 10*6/uL Normal 4.2-5.4 [facility] Comment on above: Order Comment: DR.BA CARCAMO ORDERED CBC,CMP,FOL,TSH,B12, B1MARK ROBERTS ORDERED B12 VITD Performed By: #### L 506.0250, L501.9520, L3300.8000, L500.4050, L506.1000, L100.0500, L503.0105 ####[facility] [address] [place], [address] RDW SD 42.9 fl Normal 35.1-43.9 [facility] Comment on above: Order Comment: DR.BA CARCAMO ORDERED CBC,CMP,FOL,TSH,B12, B1MARK ROBERTS ORDERED B12 VITD Performed By: #### L 506.0250, L501.9520, L3300.8000, L500.4050, L506.1000, L100.0500, L503.0105 ####[facility] [address] [place], [address] WBC (Bld) [#/Vol] 5.1 10*3/uL Normal 4.4-11.0 [facility] Comment on above: Order Comment: DR.BA CARCAMO ORDERED CBC,CMP,FOL,TSH,B12, B1MARK ROBERTS ORDERED B12 VITD Performed By: #### L 506.0250, L501.9520, L3300.8000, L500.4050, L506.1000, L100.0500, L503.0105 ####[facility] [address] [place], [address] Comprehensive Metabolic Prof ilon 07-25-2024 Albumin [Mass/Vol] 3.7 g/dL Normal 3.2-5.0 [facility] Comment on above: Order Comment: DR.BA CARCAMO ORDERED CBC,CMP,FOL,TSH,B12, B1MARK ROBERTS ORDERED B12 VITDN Performed By: #### L 506.0250, L501.9520, L3300.8000, L500.4050, L506.1000, L100.0500, L503.0105 ####[facility] [address] [place], [address] Albumin/Globulin [Mass ratio] 1.2 {ratio} Normal 0.9-2.4 [facility] Comment on above: Order Comment: DR.BA CARCAMO ORDERED CBC,CMP,FOL,TSH,B12, B1MARK ROBERTS ORDERED B12 VITDN Performed By: #### L 506.0250, L501.9520, L3300.8000, L500.4050, L506.1000, L100.0500, L503.0105 ####[facility] [address] [place], [address] ALK P 78 U/L Normal 45-117 [facility] Comment on above: Order Comment: DR.BA CARCAMO ORDERED CBC,CMP,FOL,TSH,B12, B1MARK ROBERTS ORDERED B12 VITDN Performed By: #### L 506.0250, L501.9520, L3300.8000, L500.4050, L506.1000, L100.0500, L503.0105 ####[facility] [address] [place], [address] ALT [Catalytic activity/Vol] 23 U/L Normal 13-56 [facility] Comment on above: Order Comment: DR.BA CARCAMO ORDERED CBC,CMP,FOL,TSH,B12, B1MARK ROBERTS ORDERED B12 VITDN Performed By: #### L 506.0250, L501.9520, L3300.8000, L500.4050, L506.1000, L100.0500, L503.0105 ####[facility] [address] [place], [address] AST [Catalytic activity/Vol] 19 U/L Normal 15-37 [facility] Comment on above: Order Comment: DR.BA CARCAMO ORDERED CBC,CMP,FOL,TSH,B12, B1MARK ROBERTS ORDERED B12 VITDN Performed By: #### L 506.0250, L501.9520, L3300.8000, L500.4050, L506.1000, L100.0500, L503.0105 ####[facility] [address] [place], [place], [phone] Bilirubin [Mass/Vol] 0.50 mg/dL Normal 0.20-1.00 [facility] Comment on above: Order Comment: DR.BA CARCAMO ORDERED CBC,CMP,FOL,TSH,B12, B1MARK ROBERTS ORDERED B12 VITDN Result Comment: For patients on eltrombopag therapy, use of Dimension [place] TBIL is not recommended. Performed By: #### L 506.0250, L501.9520, L3300.8000, L500.4050, L506.1000, L100.0500, L503.0105 ####[facility] [address] [place], [address] BUN/CRE 17.9 RATIO Normal 10-20 [facility] Comment on above: Order Comment: DR.BA CARCAMO ORDERED CBC,CMP,FOL,TSH,B12, B1MARK ROBERTS ORDERED B12 VITDN Performed By: #### L 506.0250, L501.9520, L3300.8000, L500.4050, L506.1000, L100.0500, L503.0105 ####[facility] [address] [place], [place], [phone] CA,Total 9.3 mg/dL Normal 8.5-10.1 [facility] Comment on above: Order Comment: DR.BA CARCAMO ORDERED CBC,CMP,FOL,TSH,B12, B1MARK ROBERTS ORDERED B12 VITDN Performed By: #### L 506.0250, L501.9520, L3300.8000, L500.4050, L506.1000, L100.0500, L503.0105 ####[facility] [address] [place], [place], [phone] Chloride [Moles/Vol] 107 mmol/L Normal 98-107 [facility] Comment on above: Order Comment: DR.BA CARCAMO ORDERED CBC,CMP,FOL,TSH,B12, B1MARK ROBERTS ORDERED B12 VITDN Performed By: #### L 506.0250, L501.9520, L3300.8000, L500.4050, L506.1000, L100.0500, L503.0105 ####[facility] [address] [place], [address] CO2 [Moles/Vol] 26.0 mmol/L Normal 21.0-32.0 [facility] Comment on above: Order Comment: DR.BA CARCAMO ORDERED CBC,CMP,FOL,TSH,B12, B1MARK ROBERTS ORDERED B12 VITDN Performed By: #### L 506.0250, L501.9520, L3300.8000, L500.4050, L506.1000, L100.0500, L503.0105 ####[facility] [address] [place], [address] Creatinine [Mass/Vol] 0.90 mg/dL Normal 0.55-1.02 [facility] Comment on above: Order Comment: DR.BA CARCAMO ORDERED CBC,CMP,FOL,TSH,B12, B1MARK ROBERTS ORDERED B12 VITDN Result Comment: The validity of the calculated GFR GFRAA in patients over70 years has not been determined. Clinical correlation isessential. Performed By: #### L 506.0250, L501.9520, L3300.8000, L500.4050, L506.1000, L100.0500, L503.0105 ####[facility] [address] [place], [address] EST GFR - AA 80 mL/min Normal >60 [facility] Comment on above: Order Comment: DR.BA CARCAMO ORDERED CBC,CMP,FOL,TSH,B12, B1MARK ROBERTS ORDERED B12 VITDN Result Comment: Afri can Afghan GFR Calc Performed By: #### L 506.0250, L501.9520, L3300.8000, L500.4050, L506.1000, L100.0500, L503.0105 ####[facility] [address] [place], [address] GAP 6 Normal 5-15 [facility] Comment on above: Order Comment: DR.BA CARCAMO ORDERED CBC,CMP,FOL,TSH,B12, B1MARK ROBERTS ORDERED B12 VITDN Performed By: #### L 506.0250, L501.9520, L3300.8000, L500.4050, L506.1000, L100.0500, L503.0105 ####[facility] [address] [place], [address] GFR/1.73 sq M.predicted among non-blacks MDRD (S/P/Bld) [Vol rate/Area] 66 mL/min/{1.73_m2} Normal >60 [facility] Comment on above: Order Comment: DR.BA CARCAMO ORDERED CBC,CMP,FOL,TSH,B12, B1MARK ROBERTS ORDERED B12 VITDN Result Comment: Non- GFR Calc Performed By: #### L 506.0250, L501.9520, L3300.8000, L500.4050, L506.1000, L100.0500, L503.0105 ####[facility] [address] [place], [address] Globulin (S) [Mass/Vol] 3.2 g/dL Normal 2.2-4.2 [facility] Comment on above: Order Comment: DR.BA CARCAMO ORDERED CBC,CMP,FOL,TSH,B12, B1MARK ROBERTS ORDERED B12 VITDN Performed By: #### L 506.0250, L501.9520, L3300.8000, L500.4050, L506.1000, L100.0500, L503.0105 ####[facility] [address] [place], [address] Glucose [Mass/Vol] 105 mg/dL Normal 74-106 [facility] Comment on above: Order Comment: DR.BA CARCAMO ORDERED CBC,CMP,FOL,TSH,B12, B1MARK ROBERTS ORDERED B12 VITDN Result Comment: Fast ing Glucose result from 100 to 125 mg/dLsuggests IMPAIRED HOMEOSTASIS per A.D.A. criteria. Performed By: #### L 506.0250, L501.9520, L3300.8000, L500.4050, L506.1000, L100.0500, L503.0105 ####[facility] [address] [place], [address] Potassium [Moles/Vol] 3.4 mmol/L Low 3.5-5.1 [facility] Comment on above: Order Comment: DR.BA CARCAMO ORDERED CBC,CMP,FOL,TSH,B12, B1MARK ROBERTS ORDERED B12 VITDN Performed By: #### L 506.0250, L501.9520, L3300.8000, L500.4050, L506.1000, L100.0500, L503.0105 ####[facility] [address] [place], [address] Sodium [Moles/Vol] 139 mmol/L Normal 136-145 [facility] Comment on above: Order Comment: DR.BA CARCAMO ORDERED CBC,CMP,FOL,TSH,B12, B1MARK ROBERTS ORDERED B12 VITDN Performed By: #### L 506.0250, L501.9520, L3300.8000, L500.4050, L506.1000, L100.0500, L503.0105 ####[facility] [address] [place], [address] T PROT 6.9 g/dL Normal 6.4-8.2 [facility] Comment on above: Order Comment: DR.BA CARCAMO ORDERED CBC,CMP,FOL,TSH,B12, B1MARK ROBERTS ORDERED B12 VITDN Performed By: #### L 506.0250, L501.9520, L3300.8000, L500.4050, L506.1000, L100.0500, L503.0105 ####[facility] [address] [place], [address] Urea nitrogen [Mass/Vol] 16 mg/dL Normal 7-18 [facility] Comment on above: Order Comment: DR.BA CARCAMO ORDERED CBC,CMP,FOL,TSH,B12, B1MARK ROBERTS ORDERED B12 VITDN Performed By: #### L 506.0250, L501.9520, L3300.8000, L500.4050, L506.1000, L100.0500, L503.0105 ####[facility] [address] [place], [place], [phone] Folates, (Folic Acid)on 07-06 FOLATES > 100.00 High 3.1-55.4 [facility] Comment on above: Order Comment: DR.BA CARCAMO ORDERED CBC,CMP,FOL,TSH,B12, B1MARK ROBERTS ORDERED B12 VITDN Performed By: #### L 506.0250, L501.9520, L3300.8000, L500.4050, L506.1000, L100.0500, L503.0105 ####[facility] [address] [place], [place], [id number] Thoracic Spine 3 Viewson Thoracic Spine 3 Views Normal [facility] Thyroid Stim Hormone (TSH)on 07-25-2024 TSH 0.678 uIU/mL Normal 0.358-3.740 [facility] Comment on above: Order Comment: DR.BA CARCAMO ORDERED CBC,CMP,FOL,TSH,B12, B1MARK ROBERTS ORDERED B12 VITDN Performed By: #### L 506.0250, L501.9520, L3300.8000, L500.4050, L506.1000, L100.0500, L503.0105 ####[facility] [address] [place], [place], [phone] Vitamin B12on 07-25-2024 Cobalamin (Vitamin B12) [Mass/Vol] pg/mL High 211-911 [facility] Comment on above: Order Comment: DR.BA CARCAMO ORDERED CBC,CMP,FOL,TSH,B12, B1MARK ROBERTS ORDERED B12 VITD Performed By: #### L 506.0250, [id number], L3300.8000, L500.4050, L506.1000, L100.0500, L503.0105 ####[facility] [id number] [place], [address](671) Vitamin D,25 Hydroxyon 07-25 Vitamin D 25-OH 103.8 ng/mL Normal [facility] Comment on above: Order Comment: DR.BA CARCAMO ORDERED CBC,CMP,FOL,TSH,B12, B1MARK ALEJANDRA ORDERED B12 VITD Result Comment: Paty min [...] 506.0250, [id number], L3300.8000, L500.4050, L506.1000, L100.0500, L503.0105 ####[facility] [id number] [place], [address] XR SHOULDER GENERAL 3V OR MO RE AP/TRUE AP/OTHER RIGHTon 11-25-2022 [facility] XR Shoulder - right 3 Viewso n 11-25-2022 IMPRESSION: No acute osseous abnormality Spindle Repairer: [employer] Transcribe Date/Time: Nov 25 2022 4:36P Dictated by : BEV MONTIEL MD This examination was interpreted and the report reviewed and electronically signed by: BEV MONTIEL MD on Nov 25 2022 4:39PM [facility] DIVISION OF RADIOLOGY * * *Final Report* [...] the acromioclavicular joint. DIVISION OF RADIOLOGY Provider, [facility] - 11/25/2022 * * *Final Report* * [...] joint. IMPRESSION IMPRESSION: No acute osseous abnormality Spindle Repairer: [facility] Transcribe Date/Time: Nov 25 2022 4:36P Dictated by : BEV MONTIEL MD This examination was interpreted and the report reviewed and electronically signed by: BEV MONTIEL MD on Nov 25 2022 4:39PM EST [facility] Radiology Study observation (narrative) [facility] XR Shoulder - right 3 ViewsO rdered By: [facility] Provider on 11-25-2022 [facility] XR FOOT MINIMUM 3 VIEWS [...] Date: 09/23/2022 6:50:07 PM Ordering Provider: ERICK Rodríguez [facility] ([place]) Basophil percentageon 2021 Chloride [Moles/Vol] 107 mmol/L 98-107 [facility] Work Phone: Glucose [Mass/Vol] 109 mg/dL 74-106 [facility] Work Phone: Comment on above: Fasting Glucose resu lt from 100 to 125 mg/dL suggests IMPAIRED HOMEOSTASIS per A.D.A. criteria. Potassium [Moles/Vol] 3.4 mmol/L 3.5-5.1 [facility] Work Phone: Sodium [Moles/Vol] 139 mmol/L 136-145 [facility] Work Phone: Laboratory - Chemistry and C hemistry - challengeon 07-22-2022 CO2 [Moles/Vol] 28.0 mmol/L 21.0-32.0 [facility] Work Phone: Free T4 [Mass/Vol] 0.93 ng/dL 0.76-1.46 [facility] Work Phone: Urea nitrogen/Creatini ne [Mass ratio] 25.9 mg/mg 10-20 [facility] Work Phone: No Panel Informationon 07-22 Estimated GFR (MDRD) Amer 115 mL/min >60 [facility] Work Phone: Comment on above: GFR Calc Estimated GFR (MDRD) Non-Af Amer 95 mL/min >60 [facility] Work Phone: Comment on above: Non- GFR Calc Thyroid Stimulating Hormone (TSH) 1.40 uIU/mL 0.358-3.74 [facility] Work Phone: Serum or plasma calcium kalani urement (mass/volume)on 07-22-2022 Calcium [Mass/Vol] 9.8 mg/dL 8.5-10.1 [facility] Work Phone: [phone] Serum or plasma creatinine m easurement (mass/volume)on 07-22-2022 Creatinine [Mass/Vol] 0.66 mg/dL 0.55-1.02 [facility] Work Phone: Comment on above: The validity of the calculated GFR & GFRAA in patients over 70 years has not been determined. Clinical correlation is essential. Serum or plasma urea nitroge n measurement (mass/volume)on 07-22-2022 Urea nitrogen [Mass/Vol] 17 mg/dL - [facility] Work Phone: Thin prep Papanicolaou smear with manual screeningon 07-22-2022 Thin prep Papanicolaou smear with manual screening 4 5-15 [facility] Work Phone: Absolute lymphocyte counton 06-14-2022 Lymphocytes Auto (Unsp spec) [#/Vol] 3.02 10*3/uL 0.83-4.51 [facility] Work Phone: Basophil percentageon 2021 Basophils/100 WBC (Bld) 0.5 % 0-1 [facility] Work Phone: Eosinophils/100 WBC (Bld) 0.3 % 0-5 [facility] Work Phone: Neutrophils (Bld) [#/Vol] 5.3 10*3/uL 2.0-7.7 [facility] Work Phone: Neutrophils/100 WBC (Bld) 57.8 % 47-70 [facility] Work Phone: WBC (Bld) [#/Vol] 9.1 10*3/uL 4.4-11.0 [facility] Work Phone: Blood erythrocytes count (nu mber/volume)on 06-14-2022 RBC (Bld) [#/Vol] 4.79 10*6/uL 4.2-5.4 [facility] [place] Work Phone: Blood hemoglobin measurement (mass/volume)on 06-14-2022 Hemoglobin (Bld) [Mass/Vol] 14.1 g/dL 12.0-15.0 [facility] Work Phone: Blood lymphocytes/100 leukoc yteson 06-14-2022 Lymphocytes/100 WBC (Bld) 33.1 % 19-41 [facility] Work Phone: [phone] Blood monocytes/100 leukocyt eson 06-14-2022 Monocytes/100 WBC (Bld) 7.8 % 0-10 [facility] Work Phone: [phone] Blood platelet mean volumeon 06-14-2022 Platelet mean volume (Bld) [Entitic vol] 11.1 fL 6.2-12.0 [facility] Work Phone: [phone] Determination of erythrocyte mean corpuscular volume (MCV)on 06-14-2022 MCV (RBC) [Entitic vol] 91.9 fL 81-99 [facility] Work Phone: [phone] Hematocrit Auto (Bld) [Volum e fraction]on 06-14-2022 Hematocrit (Bld) [Volume fraction] 44.0 % 37-47 [facility] Work Phone: Laboratory - Chemistry and C hemistry - challengeon 06-14-2022 ALT [Catalytic activity/Vol] 23 U/L 13-56 [facility] Work Phone: Laboratory - Hematology and Cell countson 06-14-2022 Erythrocyte distribution width (RBC) [Entitic vol] 43.8 fL 35.1-43.9 [facility] Work Phone: [phone] Erythrocyte distribution width (RBC) [Ratio] 12.9 % 11.6-14.6 [facility] Work Phone: [phone] Immature granulocytes/100 WBC (Bld) 0.500 % 0.0-0.9 [facility] Work Phone: [phone] Comment on above: IG% - Immature Granu locytes (promyelocytes, myelocytes and metamyelocytes) > 1% indicates that a LEFT SHIFT is Present. MCH (RBC) [Entitic mass] 29.4 pg 27.0-32.0 [facility] Work Phone: Nucleated RBC/100 WBC (Bld) [Ratio] 0 % 0-5 [facility] Work Phone: MCHC Auto (RBC) [Mass/Vol]on 06-14-2022 MCHC (RBC) [Mass/Vol] 32.0 g/dL 32-36 [facility] Work Phone: No Panel Informationon 06-14 Estimated GFR (MDRD) Amer 107 mL/min >60 [facility] Work Phone: Comment on above: GFR Calc Estimated GFR (MDRD) Non-Af Amer 88 mL/min >60 [facility] Work Phone: Comment on above: Non- GFR Calc Platelets bldon 06-14-2022 Platelets (Bld) [#/Vol] 283 10*3/uL 150-450 [facility] Work Phone: Serum or plasma C reactive p rotein measurement (mass/volume)on 06-14-2022 CRP [Mass/Vol] 3.14 mg/L 0.0-3.0 [facility] Work Phone: Comment on above: C-Reactive Protein ( CRP) provides useful information for thediagnosis, therapy and monitoring of inflammatory processesand associated diseases. For the evaluation of Relative Riskfor Cardiovascular Disease, a High Sensitivity CRP (HSCRP)should be ordered. Serum or plasma albumin kalani urement (mass/volume)on 06-14-2022 Albumin [Mass/Vol] 3.5 g/dL 3.2-5.0 [facility] Work Phone: Serum or plasma creatinine m easurement (mass/volume)on 06-14-2022 Creatinine [Mass/Vol] 0.70 mg/dL 0.55-1.02 [facility] Work Phone: Comment on above: The validity of the calculated GFR & GFRAA in patients over 70 years has not been determined. Clinical correlation is essential. Serum or plasma urea nitroge n measurement (mass/volume)on 06-14-2022 Urea nitrogen [Mass/Vol] 15 mg/dL 7-18 [facility] Work Phone: Thin prep Papanicolaou smear with manual screeningon 06-14-2022 Thin prep Papanicolaou smear with manual screening 9 U/L 15-37 [facility] Work Phone: Absolute lymphocyte counton 02-02-2022 Lymphocytes Auto (Unsp spec) [#/Vol] 2.04 10*3/uL 0.83-4.51 [facility] Work Phone: Basophil percentageon 2021 Basophils/100 WBC (Bld) 1.3 % 0-1 [facility] Work Phone: Eosinophils/100 WBC (Bld) 8.9 % 0-5 [facility] Work Phone: Neutrophils (Bld) [#/Vol] 2.7 10*3/uL 2.0-7.7 [facility] Work Phone: Neutrophils/100 WBC (Bld) 44.2 % 47-70 [facility] Work Phone: WBC (Bld) [#/Vol] 6.1 10*3/uL 4.4-11.0 [facility] Work Phone: Blood erythrocytes count (nu mber/volume)on 02-02-2022 RBC (Bld) [#/Vol] 4.95 10*6/uL 4.2-5.4 [facility] Work Phone: Blood hemoglobin measurement (mass/volume)on 02-02-2022 Hemoglobin (Bld) [Mass/Vol] 14.4 g/dL 12.0-15.0 [facility] Work Phone: Blood lymphocytes/100 leukoc yteson 02-02-2022 Lymphocytes/100 WBC (Bld) 33.6 % 19-41 [facility] Work Phone: Blood monocytes/100 leukocyt eson 02-02-2022 Monocytes/100 WBC (Bld) 11.8 % 0-10 [facility] Work Phone: [phone] Blood platelet mean volumeon 02-02-2022 Platelet mean volume (Bld) [Entitic vol] 10.5 fL 6.2-12.0 [facility] Work Phone: [phone] Determination of erythrocyte mean corpuscular volume (MCV)on 02-02-2022 MCV (RBC) [Entitic vol] 91.5 fL 81-99 [facility] Work Phone: [phone] Hematocrit Auto (Bld) [Volum e fraction]on 02-02-2022 Hematocrit (Bld) [Volume fraction] 45.3 % 37-47 [facility] Work Phone: [phone] Laboratory - Chemistry and C hemistry - challengeon 02-02-2022 ALT [Catalytic activity/Vol] 27 U/L 13-56 [facility] Work Phone: [phone] Laboratory - Hematology and Cell countson 02-02-2022 Erythrocyte distribution width (RBC) [Entitic vol] 45.3 fL 35.1-43.9 [facility] Work Phone: [phone] Erythrocyte distribution width (RBC) [Ratio] 13.4 % 11.6-14.6 [facility] Work Phone: [phone] Immature granulocytes/100 WBC (Bld) 0.200 % 0.0-0.9 [facility] Work Phone: [phone] Comment on above: IG% - Immature Granu locytes (promyelocytes, myelocytes and metamyelocytes) > 1% indicates that a LEFT SHIFT is Present. MCH (RBC) [Entitic mass] 29.1 pg 27.0-32.0 [facility] Work Phone: [phone] Nucleated RBC/100 WBC (Bld) [Ratio] 0 % 0-5 [facility] Work Phone: [phone] MCHC Auto (RBC) [Mass/Vol]on 02-02-2022 MCHC (RBC) [Mass/Vol] 31.8 g/dL 32-36 [facility] Work Phone: [phone] No Panel Informationon 02-02 Estimated GFR (MDRD) Amer 86 mL/min >60 [facility] Work Phone: Comment on above: GFR Calc Estimated GFR (MDRD) Non-Af Amer 71 mL/min >60 [facility] Work Phone: Comment on above: Non- GFR Calc Platelets bldon 02-02-2022 Platelets (Bld) [#/Vol] 254 10*3/uL 150-450 [facility] Work Phone: Serum or plasma C reactive p rotein measurement (mass/volume)on 02-02-2022 CRP [Mass/Vol] mg/L 0.0-3.0 [facility] Work Phone: Comment on above: C-Reactive Protein ( CRP) provides useful information for thediagnosis, therapy and monitoring of inflammatory processesand associated diseases. For the evaluation of Relative Riskfor Cardiovascular Disease, a High Sensitivity CRP (HSCRP)should be ordered. Serum or plasma albumin kalani urement (mass/volume)on 02-02-2022 Albumin [Mass/Vol] 3.8 g/dL 3.2-5.0 [facility] Work Phone: Serum or plasma creatinine m easurement (mass/volume)on 02-02-2022 Creatinine [Mass/Vol] 0.84 mg/dL 0.55-1.02 [facility] Work Phone: Comment on above: The validity of the calculated GFR & GFRAA in patients over 70 years has not been determined. Clinical correlation is essential. Serum or plasma urea nitroge n measurement (mass/volume)on 02-02-2022 Urea nitrogen [Mass/Vol] 23 mg/dL 7-18 [facility] Work Phone: Thin prep Papanicolaou smear with manual screeningon 02-02-2022 Thin prep Papanicolaou smear with manual screening 16 U/L 15-37 [facility] Work Phone: [phone] Basophil percentageon 2021 Cholesterol [Mass/Vol] 199 mg/dL <200 [facility] Work Phone: Comment on above: <200 mg/dL Desirable 200-240 mg/dL Borderline >240 mg/dL High Risk Triglyceride [Mass/Vol] 151 mg/dL <199 [facility] Work Phone: Comment on above: The drugs N-Acetylcy steine and Metamizole may falsely depress this assay.Serum Triglycerides Reference Interval Normal <150 mg/dL Borderline high 150 - 199 mg/dL High 200 - 499 mg/dL Very High > or = 500 mg/dL No Panel Informationon 01-26 Vitamin D 25-Hydroxy 75.9 ng/mL [facility] Work Phone: Comment on above: Vitamin D 25(OH) Sta tus Range Deficiency <20 ng/mL (50nmol/L) Insufficiency 20 - 30 ng/mL (50 - 75 nmol/L) Sufficiency 30 - 100 ng/mL (75 - 250 nmol/L) Toxicity >100 ng/mL (>250 nmol/L) Serum or plasma cholesterol in HDL measurement (mass/volume)on 01-26-2022 Cholesterol in HDL [Mass/Vol] 73 mg/dL >40 [facility] Work Phone: Comment on above: The drugs N-Acetylcy steine and Metamizole may falsely depress this assay. Reference Range HDL <40 mg/dL Low HDL Cholesterol HDL >or= 60 mg/dL High HDL Cholesterol Serum or plasma cholesterol in VLDL measurement (mass/volume)on 01-26-2022 Cholesterol in VLDL [Mass/Vol] 30 mg/dL 5-40 [facility] Work Phone: [phone] Serum or plasma low density lipoprotein (LDL) cholesterol measurement (mass/volume)on 01-26-2022 Cholesterol in LDL [Mass/Vol] 96 mg/dL 0-130 [facility] Work Phone: [phone] Absolute lymphocyte counton 01-18-2022 Lymphocytes Auto (Unsp spec) [#/Vol] 2.54 10*3/uL 0.83-4.51 [facility] Work Phone: [phone] Basophil percentageon 2021 Basophils/100 WBC (Bld) 1.1 % 0-1 [facility] Work Phone: [phone] Bilirubin [Mass/Vol] 0.50 mg/dL 0.20-1.00 [facility] Work Phone: Comment on above: For patients on eltr ombopag therapy, use of Dimension [place] TBIL is not recommended. Chloride [Moles/Vol] 104 mmol/L 98-107 [facility] Work Phone: Eosinophils/100 WBC (Bld) 8.2 % 0-5 [facility] Work Phone: Glucose [Mass/Vol] 100 mg/dL 74-106 [facility] Work Phone: Comment on above: Fasting Glucose resu lt from 100 to 125 mg/dL suggests IMPAIRED HOMEOSTASIS per A.D.A. criteria. Neutrophils (Bld) [#/Vol] 2.8 10*3/uL 2.0-7.7 [facility] Work Phone: Neutrophils/100 WBC (Bld) 43.1 % 47-70 [facility] Work Phone: Potassium [Moles/Vol] 3.6 mmol/L 3.5-5.1 [facility] Work Phone: Protein [Mass/Vol] 7.6 g/dL 6.4-8.2 [facility] Work Phone: Sodium [Moles/Vol] 139 mmol/L 136-145 [facility] Work Phone: WBC (Bld) [#/Vol] 6.5 10*3/uL 4.4-11.0 [facility] Work Phone: Blood erythrocytes count (nu mber/volume)on 01-18-2022 RBC (Bld) [#/Vol] 4.95 10*6/uL 4.2-5.4 [facility] Work Phone: Blood hemoglobin measurement (mass/volume)on 01-18-2022 Hemoglobin (Bld) [Mass/Vol] 14.4 g/dL 12.0-15.0 [facility] Work Phone: Blood lymphocytes/100 leukoc yteson 01-18-2022 Lymphocytes/100 WBC (Bld) 39.4 % 19-41 [facility] Work Phone: Blood monocytes/100 leukocyt eson 01-18-2022 Monocytes/100 WBC (Bld) 7.9 % 0-10 [facility] Work Phone: Blood platelet mean volumeon 01-18-2022 Platelet mean volume (Bld) [Entitic vol] 10.1 fL 6.2-12.0 [facility] Work Phone: Determination of erythrocyte mean corpuscular volume (MCV)on 01-18-2022 MCV (RBC) [Entitic vol] 91.3 fL 81-99 [facility] Work Phone: Hematocrit Auto (Bld) [Volum e fraction]on 01-18-2022 Hematocrit (Bld) [Volume fraction] 45.2 % 37-47 [facility] Work Phone: Laboratory - Chemistry and C hemistry - challengeon 01-18-2022 ALP [Catalytic activity/Vol] 108 U/L 45-117 [facility] Work Phone: ALT [Catalytic activity/Vol] 25 U/L 13-56 [facility] Work Phone: CO2 [Moles/Vol] 29.0 mmol/L 21.0-32.0 [facility] Work Phone: Globulin (S) [Mass/Vol] 3.7 g/dL 2.2-4.2 [facility] Work Phone: Urea nitrogen/Creatini ne [Mass ratio] 23.7 mg/mg 10-20 [facility] Work Phone: Laboratory - Hematology and Cell countson 01-18-2022 Erythrocyte distribution width (RBC) [Entitic vol] 45.1 fL 35.1-43.9 [facility] Work Phone: Erythrocyte distribution width (RBC) [Ratio] 13.3 % 11.6-14.6 [facility] Work Phone: Immature granulocytes/100 WBC (Bld) 0.300 % 0.0-0.9 [facility] Work Phone: Comment on above: IG% - Immature Granu locytes (promyelocytes, myelocytes and metamyelocytes) > 1% indicates that a LEFT SHIFT is Present. MCH (RBC) [Entitic mass] 29.1 pg 27.0-32.0 [facility] Work Phone: Nucleated RBC/100 WBC (Bld) [Ratio] 0.5 % 0-5 [facility] Work Phone: [phone] MCHC Auto (RBC) [Mass/Vol]on 01-18-2022 MCHC (RBC) [Mass/Vol] 31.9 g/dL 32-36 [facility] Work Phone: No Panel Informationon 01-18 Estimated GFR (MDRD) Amer 87 mL/min >60 [facility] Work Phone: Comment on above: GFR Calc Estimated GFR (MDRD) Non-Af Amer 72 mL/min >60 [facility] Work Phone: Comment on above: Non- GFR Calc Platelets bldon 01-18-2022 Platelets (Bld) [#/Vol] 261 10*3/uL 150-450 [facility] Work Phone: Serum or plasma albumin kalani urement (mass/volume)on 01-18-2022 Albumin [Mass/Vol] 3.9 g/dL 3.2-5.0 [facility] Work Phone: [phone] Serum or plasma albumin/glob ulin mass ratioon 01-18-2022 Albumin/Globulin [Mass ratio] 1.1 {ratio} 0.9-2.4 [facility] Work Phone: [phone] Serum or plasma calcium kalani urement (mass/volume)on 01-18-2022 Calcium [Mass/Vol] 9.5 mg/dL 8.5-10.1 [facility] Work Phone: [phone] Serum or plasma creatinine m easurement (mass/volume)on 01-18-2022 Creatinine [Mass/Vol] 0.84 mg/dL 0.55-1.02 [facility] Work Phone: Comment on above: The validity of the calculated GFR & GFRAA in patients over 70 years has not been determined. Clinical correlation is essential. Serum or plasma urea nitroge n measurement (mass/volume)on 01-18-2022 Urea nitrogen [Mass/Vol] 20 mg/dL 7-18 [facility] Work Phone: Thin prep Papanicolaou smear with manual screeningon 01-18-2022 Thin prep Papanicolaou smear with manual screening 15 U/L 15-37 [facility] Work Phone: Thin prep Papanicolaou smear with manual screening 6 5-15 [facility] Work Phone: Thin prep Papanicolaou smear with manual screening 175 U/L 84-246 [facility] Work Phone: Absolute lymphocyte counton 09-28-2021 Lymphocytes Auto (Unsp spec) [#/Vol] 2.19 10*3/uL 0.83-4.51 [facility] Work Phone: Basophil percentageon 2021 Basophils/100 WBC (Bld) 1.3 % 0-1 [facility] Work Phone: Eosinophils/100 WBC (Bld) 12.4 % 0-5 [facility] Work Phone: Neutrophils (Bld) [#/Vol] 2.2 10*3/uL 2.0-7.7 [facility] Work Phone: Neutrophils/100 WBC (Bld) 39.4 % 47-70 [facility] Work Phone: WBC (Bld) [#/Vol] 5.6 10*3/uL 4.4-11.0 [facility] Work Phone: Blood erythrocytes count (nu mber/volume)on 09-28-2021 RBC (Bld) [#/Vol] 4.77 10*6/uL 4.2-5.4 [facility] Work Phone: Blood hemoglobin measurement (mass/volume)on 09-28-2021 Hemoglobin (Bld) [Mass/Vol] 13.7 g/dL 12.0-15.0 [facility] Work Phone: [phone] Blood lymphocytes/100 leukoc yteson 09-28-2021 Lymphocytes/100 WBC (Bld) 39.2 % 19-41 [facility] Work Phone: [phone] Blood monocytes/100 leukocyt eson 09-28-2021 Monocytes/100 WBC (Bld) 7.5 % 0-10 [facility] Work Phone: [phone] Blood platelet mean volumeon 09-28-2021 Platelet mean volume (Bld) [Entitic vol] 11.3 fL 6.2-12.0 [facility] Work Phone: [phone] Determination of erythrocyte mean corpuscular volume (MCV)on 09-28-2021 MCV (RBC) [Entitic vol] 91.2 fL 81-99 [facility] Work Phone: [phone] Hematocrit Auto (Bld) [Volum e fraction]on 09-28-2021 Hematocrit (Bld) [Volume fraction] 43.5 % 37-47 [facility] Work Phone: [phone] Laboratory - Chemistry and C hemistry - challengeon 09-28-2021 ALT [Catalytic activity/Vol] 35 U/L 13-56 [facility] Work Phone: [phone] Laboratory - Hematology and Cell countson 09-28-2021 Erythrocyte distribution width (RBC) [Entitic vol] 45.1 fL 35.1-43.9 [facility] Work Phone: [phone] Erythrocyte distribution width (RBC) [Ratio] 13.3 % 11.6-14.6 [facility] Work Phone: [phone] Immature granulocytes/100 WBC (Bld) 0.200 % 0.0-0.9 [facility] Work Phone: [phone] Comment on above: IG% - Immature Granu locytes (promyelocytes, myelocytes and metamyelocytes) > 1% indicates that a LEFT SHIFT is Present. MCH (RBC) [Entitic mass] 28.7 pg 27.0-32.0 [facility] Work Phone: Nucleated RBC/100 WBC (Bld) [Ratio] 0 % 0-5 [facility] Work Phone: [phone] MCHC Auto (RBC) [Mass/Vol]on 09-28-2021 MCHC (RBC) [Mass/Vol] 31.5 g/dL 32-36 [facility] Work Phone: No Panel Informationon 09-28 Estimated GFR (MDRD) Amer 88 mL/min >60 [facility] Work Phone: Comment on above: GFR Calc Estimated GFR (MDRD) Non-Af Amer 73 mL/min >60 [facility] Work Phone: Comment on above: Non- GFR Calc Platelets bldon 09-28-2021 Platelets (Bld) [#/Vol] 276 10*3/uL 150-450 [facility] Work Phone: Serum or plasma C reactive p rotein measurement (mass/volume)on 09-28-2021 CRP [Mass/Vol] mg/L 0.0-3.0 [facility] Work Phone: Comment on above: C-Reactive Protein ( CRP) provides useful information for thediagnosis, therapy and monitoring of inflammatory processesand associated diseases. For the evaluation of Relative Riskfor Cardiovascular Disease, a High Sensitivity CRP (HSCRP)should be ordered. Serum or plasma albumin kalani urement (mass/volume)on 09-28-2021 Albumin [Mass/Vol] 3.8 g/dL 3.2-5.0 [facility] Work Phone: Serum or plasma creatinine m easurement (mass/volume)on 09-28-2021 Creatinine [Mass/Vol] 0.83 mg/dL 0.55-1.02 [facility] Work Phone: Comment on above: The validity of the calculated GFR & GFRAA in patients over 70 years has not been determined. Clinical correlation is essential. Serum or plasma urea nitroge n measurement (mass/volume)on 09-28-2021 Urea nitrogen [Mass/Vol] 22 mg/dL 7-18 [facility] Work Phone: Thin prep Papanicolaou smear with manual screeningon 09-28-2021 Thin prep Papanicolaou smear with manual screening 26 U/L 15-37 [facility] Work Phone: No Panel Informationon 01-05 Miscellaneous Test See comment [facility] Work Phone: Comment on above: TEST [...] in situ hybridization (FISH) panel (test code 459572) may be considered. Non-Hodgkin lymphoma interphase fluorescence in situ hybridization (FISH) panel (test code 932371). A whole genome SNP microarray-Oncology Reveal (test code 812093) may also be considered to resolve higher resolution imbalances and copy neutral LUIS. Cytogenetic results should be interpreted within the context of a full pathology evaluation which may include flow cytometry, microarray analysis, and molecular genetic testing. Director Review: Comment: Jojo Childers, PhD TESTING PERFORMED AT [facility]. ORIGINAL REPORT ON FILE IN LAB CONTAINS ADDITIONAL TEST SITE INFORMATION. _ ANES Suad 05-21-2019 ANES POST HNO ID: [id number] Author: Rudolph Goel Service: Anesthesiology Author Type: [...] 21, 2019 TIME: 6:03 PM PAGER/CONTACT #: [facility] ANES PREOPon 05-21-2019 ANES PREOP HNO ID: [id number] Author: Rudolph Goel Service: Anesthesiology Author Type: [...] With Chronic Bronchitis (Hcc) Former Smoker Neuropathy ([facility]) History of Etoh Abuse Anxiety and Depression Lumbosacral Spondylosis Without Myelopathy Spinal Stenosis, Lumbar Region, Without Neurogenic Claudication Lumbosacral Radiculitis History reviewed. No pertinent past medical history. PAST SURGICAL HISTORY Procedure Laterality Date - CARPAL TUNNEL Bilateral - HYSTERECTOMY HX - LUMBAR SPINE FUSION COMBINED 02/2017 L4-S1 [facility] Dr. Arteaga - PAST SURGICAL HISTORY [...] D5W 200 mL (VANCOCIN) 1 g INTRAVENOUS Transfer Coordinator to OR Delmar Khan 200 mL/hr at [...] May 21, 2019 TIME: 4:03 PM CSN: [id number] [facility] NURSING PROGon 05-21-2019 NURSING PROG HNO ID: [id number] Author: Beryl MullinsRn) JOSE RAMON Velázquez Service: [...] 1924: IV removed. 1929 D/C paperwork reviewed. [facility] NURSING PROG HNO ID: [id number] Author: Jigna MullinsRn) JOSE RAMON Martinez Service: [...] note was completed by: Jigna Martinez RN [facility] OPERATIVE NOon 05-21-2019 OPERATIVE NO HNO ID: [id number] Author: Delmar Khan Service: Neurosurgery Author Type: Physician Type: Operative Report Filed: 05/22/2019 12:18 PM Note Text: OPERATIVE/PROCEDURE REPORT LOG ID: [id number] SURGERY/PROCEDURE DATE: 05/21/2019 INCISION/PROCEDURE START TIME: 5:02 PM INCISION CLOSE/PROCEDURE END TIME: 5:45 PM SURGEON(S)/PROCEDURALIST(S) AND OPERATOR CAVITY PUMP(S): Surgeon(s) and Role: * Delmar Khan - Primary Physician Patent Counsel: Mando Caldwell SURGERY/PROCEDURE(S): Left L4/5 foraminotomy ANESTHESIA: General SURGERY/PROCEDURE [...] 6 cm length x 26 mm diameter gDecide tubular? retractor, which was secured to the [...] 22, 2019 TIME: 12:16 PM PAGER/CONTACT #: [facility] PT EDon 05-21-2019 PT ED HNO ID: [id number] Author: Beryl Mejias) JOSE RAMON Velázquez Service: ? Author Type: [...] None Electronically Signed By: Beryl Velázquez RN [facility] XR LUMBAR SPECIFY 1Von 05-21 XR [...] on May 21 2019 6:57PM EST [id number] [facility] NURSING PROGon 05-07-2019 NURSING PROG HNO ID: [id number] Author: Donita (Rn) JOSE RAMON Goncalves Service: [...] Goncalves RN May 07, 2019 9:49 AM [facility] Confirm Blood Typeon 019 ABO/RH(D) Positive [facility] HOSPon 05-03-2019 HOSP Patient:Karine Pang MRN: [...] 44.8 % 05/03/2019 46.0 36.0 Progress Notes ([facility]): Josi Mcfadden 05/14/2019 11:38 AM Signed NI PHONE Name of caller : self Relationship to patient : Self If not self Will need patient permission to release results or disclose health information with called documented in fy. Was permission obtained from patient ? na Patient identified by Name and Date of . ( Lele Pang, 1955). Yes Reason for Call : Patient received your paperwork and wants to discuss it. Number to return call [phone] Okay to leave a message ? Yes Thank you calling [facility] [place]. You will receive a return call within [...] 05/14/2019 4:09 PM Signed NEUROSURGERY CARE COORDINATION [facility] PRE-OP EDUCATION VISIT ? Met with patient Lele Pang for pre-op education. Reviewed education materials verbally with patient, including pre-operative skin preparation, wound care, post-operative pain management. ? Provided the following education materials to patient: [facility] Spine Surgery [facility] Pre-/Post-Op Instruction packet, NPO/Skin Prep Instructions, Map of [facility] 1st Floor, Nearby Accommodations list, Pain Management After Spine Surgery packet, Preparing for Post-Acute Care Instructions (if applicable): Yes. ? Discussed recommendation for every [facility] patient over the age of 18 to complete Healthcare POA forms prior to surgery. Provided forms to patient: No. Patient completed Healthcare POA in office and forms were scanned to patients record: No. ? Reviewed with patient to report to Pre/Post op services day of surgery: Yes. ? Reviewed with patient [facility] Surgery Pre-Op will call patient after 2 pm the day before to get surgery report time for day of surgery. Provided Pre-Op front end alignment specialist phone number of [phone] for any questions: Yes. ? Patient made [...] call: 11:25 Number to return call to: [phone] Time Patient is available for return call: anytime Ok to leave a message?: y Nature of call : Patient called, asking for gas voucher form she gave to nurse during Monday's visit, emailed to patient at [email or web address] Kennedy RN, RN 05/01/2019 9:35 AM Signed NEUROSURGERY CARE COORDINATION [facility] QUICK NOTE ? Patient identified by name and date of : Yes ? Spoke to patient ? Reason for call: Gas voucher ? Additional Notes: Patient advised gas voucher received, will email back once signed. No other questions at this time. JOSE RAMON Scott [facility] 05/01/2019 11:55 AM Signed Form signed and emailed back to patient at [email or web address] [place] A [facility] May 01, 2019 11:55 AM Normal [facility] Type and SCR (30D)on 019 ABO/RH(D) Positive Normal [facility] Vital Signs Date Time Vital Sign Value Performing Clinician Facility 03-06-2025 13:07-0400 Body mass index (BMI) [Ratio] 27.21 kg/m2 Winnie David PA-C Work Phone: [facility] 03-06-2025 13:07-0400 Body weight 59.06 kg Winnie David PA-C Work Phone: [facility] 03-06-2025 13:07-0400 Diastolic blood pressure 86 mm[Hg] Winnie David PA-C Work Phone: [facility] 03-06-2025 13:07-0400 Heart rate 77 /min Winnie David PA-C Work Phone: [facility] 03-06-2025 13:07-0400 Respiratory rate 17 /min Winnie David PA-C Work Phone: [facility] 03-06-2025 13:07-0400 SaO2% (BldA) [Mass fraction] 98 % Winnie David PA-C Work Phone: [facility] 03-06-2025 13:07-0400 Systolic blood pressure 143 mm[Hg] Winnie David PA-C Work Phone: [facility] 12-05-2024 11:14-0400 Body height 147.3 cm Winnie David PA-C Work Phone: [facility] 12-05-2024 11:14-0400 Body mass index (BMI) [Ratio] 26.5 kg/m2 Winnie David PA-C Work Phone: [facility] 12-05-2024 11:14-0400 Body weight 57.52 kg Winnie David PA-C Work Phone: [facility] 12-05-2024 11:14-0400 Diastolic blood pressure 95 mm[Hg] Winnie David PA-C Work Phone: [facility] 12-05-2024 11:14-0400 Heart rate 61 /min Winnie David PA-C Work Phone: [facility] 12-05-2024 11:14-0400 SaO2% (BldA) [Mass fraction] 98 % Winnie David PA-C Work Phone: [facility] 12-05-2024 11:14-0400 Systolic blood pressure 146 mm[Hg] Winnie David PA-C Work Phone: [facility] 11-25-2022 16:08-0400 Body temperature 97.11 [degF] Josefa Serna APRN.LUMBER BUYER Work Phone: [facility] 11-25-2022 16:08-0400 Body weight 67.04 kg Josefa Serna APRN.LUMBER BUYER Work Phone: [facility] 11-25-2022 16:08-0400 Diastolic blood pressure 94 mm[Hg] Josefa Serna APRN.LUMBER BUYER Work Phone: [facility] 11-25-2022 16:08-0400 Heart rate 81 /min Josefa Serna APRN.LUMBER BUYER Work Phone: [facility] 11-25-2022 16:08-0400 Respiratory rate 18 /min Josefa Serna APRN.LUMBER BUYER Work Phone: [facility] 11-25-2022 16:08-0400 SaO2% (BldA) [Mass fraction] 98 % Josefa Serna APRN.LUMBER BUYER Work Phone: [facility] 11-25-2022 16:08-0400 Systolic blood pressure 146 mm[Hg] Josefa Serna APRN.LUMBER BUYER Work Phone: [facility] 11-08-2022 14:58-0500 Body temperature 97.9 [degF] Lizette Praisler-Wood HEALTH INFORMATION TECHNICIAN.LUMBER BUYER Work Phone: [facility] 11-08-2022 14:58-0500 Body weight 64.41 kg Lizette Praisler-Wood HEALTH INFORMATION TECHNICIAN.LUMBER BUYER Work Phone: [facility] 11-08-2022 14:58-0500 Diastolic blood pressure 74 mm[Hg] Lizette Praisler-Wood HEALTH INFORMATION TECHNICIAN.LUMBER BUYER Work Phone: [facility] 11-08-2022 14:58-0500 Heart rate 68 /min Lizette Praisler-Wood HEALTH INFORMATION TECHNICIAN.LUMBER BUYER Work Phone: [facility] 11-08-2022 14:58-0500 Respiratory rate 16 /min Lizette Praisler-Wood HEALTH INFORMATION TECHNICIAN.LUMBER BUYER Work Phone: [facility] 11-08-2022 14:58-0500 SaO2% (BldA) [Mass fraction] 98 % Lizette Praisler-Wood HEALTH INFORMATION TECHNICIAN.LUMBER BUYER Work Phone: [facility] 11-08-2022 14:58-0500 Systolic blood pressure 120 mm[Hg] Lizette Praisler-Wood HEALTH INFORMATION TECHNICIAN.LUMBER BUYER Work Phone: [facility] 09-23-2022 18:52-0500 Diastolic Blood Pressure Non-Invasive 86 1 CLUADIO SMITH MD [facility] 09-23-2022 18:52-0500 Heart rate 80 /min CLAUDIO SMITH MD [facility] 09-23-2022 18:52-0500 Respiratory rate 16 /min CLAUDIO SMITH MD [facility] 09-23-2022 18:52-0500 Systolic Blood Pressure Non-Invasive 119 1 CLAUDIO SMITH MD [facility] 09-23-2022 17:35-0500 Body height 150 cm CLAUDIO SMITH MD [facility] 09-23-2022 17:35-0500 Body temperature 99.5 [degF] CLAUDIO SMITH MD [facility] 09-23-2022 17:35-0500 Body weight 65.9 kg CLAUDIO SMITH MD [facility] 09-23-2022 17:35-0500 Diastolic Blood Pressure Non-Invasive 86 1 CLAUDIO SMITH MD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 osteoporosis without current pathological fracture Rheumatoid arthritis, involving unspecified site, unspecified whether rheumatoid factor present (HCC) Expected: 12/05/2024, Expires: 03/06/2025 [facility] Comment on above: Expected: 12/05/2024 , Expires: 03/06/2025 Start: 12-05-2024 End: 03-06-2025 BLOOD TB SCREEN BLOOD TB SCREEN Lab Routine Age-related osteoporosis without current pathological fracture Rheumatoid arthritis, involving unspecified site, unspecified whether rheumatoid factor present (HCC) Expected: 12/05/2024, Expires: 03/06/2025 [facility] Comment on above: Expected: 12/05/2024 , Expires: 03/06/2025 Start: 12-05-2024 End: 12-05-2025 C reactive protein [Mass/volume] in Serum or Plasma C-REACTIVE PROTEIN Lab Routine Age-related osteoporosis without current pathological fracture Rheumatoid arthritis, involving unspecified site, unspecified whether rheumatoid factor present (HCC) Expected: 12/05/2024, Expires: 12/05/2025 [facility] Comment on above: Expected: 12/05/2024 , Expires: 12/05/2025 Start: 12-05-2024 End: 12-05-2025 CBC W Auto Differential panel - Blood COMPLETE BLOOD COUNT AND DIFFERENTIAL Lab Routine Age-related osteoporosis without current pathological fracture Rheumatoid arthritis, involving unspecified site, unspecified whether rheumatoid factor present (HCC) Expected: 12/05/2024, Expires: 12/05/2025 [facility] Comment on above: Expected: 12/05/2024 , Expires: 12/05/2025 Start: 12-05-2024 End: 03-06-2025 Chronic hepatitis differentiation between hepatitis B and C virus panel - Serum or Plasma HEP REMOTE PANEL BL Lab Routine Age-related osteoporosis without current pathological fracture Rheumatoid arthritis, involving unspecified site, unspecified whether rheumatoid factor present (HCC) Expected: 12/05/2024, Expires: 03/06/2025 [facility] Comment on above: Expected: 12/05/2024 , Expires: 03/06/2025 Start: 12-05-2024 End: 12-05-2025 Comprehensive metabolic 2000 panel - Serum or Plasma COMPREHENSIVE METABOLIC PANEL Lab Routine Age-related osteoporosis without current pathological fracture Rheumatoid arthritis, involving unspecified site, unspecified whether rheumatoid factor present (HCC) Expected: 12/05/2024, Expires: 12/05/2025 [facility] Comment on above: Expected: 12/05/2024 , Expires: 12/05/2025 Start: 12-05-2024 End: 12-05-2025 Erythrocyte sedimentation rate SEDIMENTATION RATE, WESTERGREN Lab Routine Age-related osteoporosis without current pathological fracture Rheumatoid arthritis, involving unspecified site, unspecified whether rheumatoid factor present (HCC) Expected: 12/05/2024, Expires: 12/05/2025 [facility] Comment on above: Expected: 12/05/2024 , Expires: 12/05/2025 Start: 12-05-2024 End: 12-05-2024 Patient encounter procedure 12/05/2024 11:00 AM EDT Office Visit Rheumatology [address] [place], [place] [id number] Winnie Hernandez PA-C [address] [place], [place] [id number] rheumaoid arthritis referred by Daron Mark Rheumatology Comment on above: rheumaoid arthritis referred by Daron Mark Start: 09-04-2024 Advance Directive Discussion Advance Directive Discussion [facility] Start: 09-04-2024 Medicare Advantage A nnual Wellness Visit Medicare Advantage Annual Wellness Visit [facility] Start: 05-05-2024 Covid-19 Vaccine ( season) Covid-19 Vaccine ( season) [facility] Start: 05-05-2024 Covid-19 Vaccine ( season) Covid-19 Vaccine ( season) [facility] Start: 05-05-2024 Influenza vaccination Influenza Vacc ine (#1) [facility] Start: 11-09-2023 BP CONTROLLED (<130/80) BP CON TROLLED (<130/80) [facility] Start: 09-04-2023 Advance Directive Discussion Advance Directive Discussion [facility] Start: 09-04-2022 ADVANCE DIRECTIVE DISCUSSION ADVANCE DIRECTIVE DISCUSSION [facility] Start: 07-22-2022 Patient referral [facility] Work Phone: Start: 05-03-2022 DIABETES SCREEN DIABETES SCREEN [facility] Start: 2019 BONE DENSITY BONE DENSITY [facility] Start: 2019 Screening for osteoporosis Bone Density Screening [facility] Start: 2014 RSV Vaccine (1 - Ris k 60-74 years 1-dose series) RSV Vaccine (1 - Risk 60-74 years 1-dose series) [facility] Start: 12-12-2013 LIPID SCREEN LIPID SCREEN [facility] Start: 11-01-2003 Colonoscopy COLONOSCOPY [facility] Start: 11-01-2003 COLORECTAL CANCER SCREENING COLORECTAL CANCER SCREENING [facility] Start: 11-01-2003 Screening for malign ant neoplasm of colon [facility] Start: 1999 COLOGUARD (FIT-DNA) COLOGUARD (FIT-D NA) [facility] Start: [address] COLONOGRAPHY [facility] Start: 1999 FECAL OCCULT BLOOD FECAL OCCULT BLOO D [facility] Start: 1999 Screening for malign ant neoplasm of colon [facility] Start: 1999 SIGMOIDOSCOPY SIGMOIDOSCOPY [facility] Start: 1994 Mammography MAMMOGRAM [facility] Start: 1994 Screening for malign ant neoplasm of breast Mammogram Screening [facility] Start: 1984 Zoledronic acid therapy ALPHA- 1 ANTITRYPSIN DEFICIENCY SCREENING [facility] Start: 1973 SHINGRIX VACCINE (1 of 2) MATT GRIX VACCINE (1 of 2) [facility] Start: 1973 Urine microalbumin profile [facility] Start: 1972 ANNUAL PCP TEAM [employer] CONSULTANT JOSIAH DISEASE VISIT ANNUAL PCP TEAM CHRONIC DISEASE VISIT [facility] Start: 1972 BP CONTROLLED (<130/80) BP CON TROLLED (<130/80) [facility] Start: 1972 HEPATITIS C SCREENING HEPATITIS C SC [facility] Start: 1972 Hepatitis C screening Hepatitis C Sc [facility] Start: 1972 SPIROMETRY SPIROMETRY [facility] Start: 1965 Screening for malign ant neoplasm of cervix Cervical Cancer Screening [facility] Start: 1960 PNEUMOCOCCAL: 65+ (1 - PCV) PNEUMOCOCCAL: 65+ (1 - PCV) [facility] End: 01-04-2026 BD DXA TRABECULAR BONE SCORE (TBS) BD DXA TRABECULAR BONE SCORE (TBS) Radiology Routine Age-related osteoporosis without current pathological fracture Rheumatoid arthritis, involving unspecified site, unspecified whether rheumatoid factor present (HCC) 1 Occurrences starting 12/05/2024 until 01/04/2026 [facility] Comment on above: 1 Occurrences starti ng 12/05/2024 until 01/04/2026 End: 03-06-2026 C reactive protein [Mass/volume] in Serum or Plasma C-REACTIVE PROTEIN Lab Routine Rheumatoid arthritis, involving unspecified site, unspecified whether rheumatoid factor present (HCC) Every 3 months for 3 Occurrences starting 03/06/2025 until 03/06/2026 [facility] Comment on above: Every 3 months for 3 Occurrences starting 03/06/2025 until 03/06/2026 End: 03-06-2026 CBC W Auto Differential panel - Blood COMPLETE BLOOD COUNT AND DIFFERENTIAL Lab Routine Rheumatoid arthritis, involving unspecified site, unspecified whether rheumatoid factor present (HCC) Every 3 months for 3 Occurrences starting 03/06/2025 until 03/06/2026 [facility] Work Phone: Comment on above: Every 3 months for 3 Occurrences starting 03/06/2025 until 03/06/2026 End: 03-06-2026 Comprehensive metabolic 2000 panel - Serum or Plasma COMPREHENSIVE METABOLIC PANEL Lab Routine Rheumatoid arthritis, involving unspecified site, unspecified whether rheumatoid factor present (HCC) Every 3 months for 3 Occurrences starting 03/06/2025 until 03/06/2026 [facility] Comment on above: Every 3 months for 3 Occurrences starting 03/06/2025 until 03/06/2026 CT Chest [facility] Work Phone: End: 01-04-2026 DXA Skeletal system.axial Views for bone density DXA-AXIAL SKELETON Radiology Routine Age-related osteoporosis without current pathological fracture Rheumatoid arthritis, involving unspecified site, unspecified whether rheumatoid factor present (HCC) 1 Occurrences starting 12/05/2024 until 01/04/2026 [facility] Work Phone: Comment on above: 1 Occurrences starti 12/05/2024 until 01/04/2026 End: 03-06-2026 Erythrocyte sedimentation rate SEDIMENTATION RATE, WESTERGREN Lab Routine Rheumatoid arthritis, involving unspecified site, unspecified whether rheumatoid factor present (HCC) Every 3 months for 3 Occurrences starting 03/06/2025 until 03/06/2026 [facility] [facility] Comment on above: Every 3 months for 3 Occurrences starting 03/06/2025 until 03/06/2026 Patient referral [facility] Work Phone: Tobacco use cessatio n education [facility] Work Phone: [facility] Immunizations Immunization Date Immunization Notes Care Provider Howie kan 08-21-2024 influenza virus vacc ine, unspecified formulation Winnie Hernandez PA-C Work Phone: [facility] 06-27-2022 influenza virus vacc ine, unspecified formulation Xr [place] Work Phone: [facility] 07-09-2021 Covid (Pfizer) Dr. Yady Vera Work Phone: [facility] Work Phone: 06-25-[address] Yady Vera Work Phone: [facility] Work Phone: 12-01-2020 Covid (Pfizer) Dr. Yady Vera Work Phone: [facility] Work Phone: 11-10-2020 Covid (Pfizer) Dr. Yady Vera Work Phone: [facility] Work Phone: 05-17-[address] Yady Vera Work Phone: [facility] Work Phone: 06-17-2019 influenza, seasonal, injectable Dr. Yady Vera Work Phone: [facility] Work Phone: 06-17-2019 pneumococcal polysaccharide vaccine, [address] Yady Vera Work Phone: [facility] Work Phone: Payers Date Payer Category Payer Self-pay [id number] 2023 Medicare (Managed Care) CRYSTAL ADHIKARI [id number] 2023 Medicare [id number] 2022 Medicaid [id number] 2022 Medicare [id number] 2022 Medicaid [id number] 1.13.159.2. [id number] 2022 Private Health Insurance [id number] 2019 Unknown [id number]. 1.13.159.2. [id number] 2016 Unknown [id number] 1954 Unknown [id number] 2.840.1.013936.3.579.2. 627 Medicare [id number] Private Health Insurance [id number] Unknown [id number] Unknown [id number] 2.16.840.1.140257.3.579.2. 462 Unknown [id number] 2.840.1.481910.3.579.2. 462 Unknown [id number] 2.16840.1.873836.3.579.2. 462 Unknown [id number] 2.16840.1.479172.3.579.2. 462 Unknown [id number] 2.16840.1.551266.3.579.2. 462 Unknown [id number] 2.16840.1.107537.3.579.2. 462 Unknown [id number] 2.16840.1.088811.3.579.2. 462 Unknown [id number] 2.16.840.1.241619.3.579.2. 462 Unknown [id number] 2.16.840.1.776678.3.579.2. 462 Unknown [id number] 2.16840.1.350228.3.579.2. 462 Unknown [id number] 2.16.840.1.993208.3.579.2. 462 Unknown [id number] 2.16.840.1.066384.3.579.2. 462 Unknown [id number] 2.16.840.1.562685.3.579.2. 462 Unknown [id number] 2.16840.1.082339.3.579.2. 462 Unknown [id number] 2.16.840.1.432418.3.579.2. 462 Unknown [id number] 2.840.1.417692.3.579.2. 462 Unknown [id number] 2.840.1.660549.3.579.2. 462 Unknown [id number] 2.840.1.937005.3.579.2. 462 Unknown [id number] 2.840.1.138478.3.579.2. 462 Unknown [id number] 2.840.1.109318.3.579.2. 462 Unknown [id number] 2.840.1.617686.3.579.2. 462 Unknown [id number] 2.840.1.829238.3.579.2. 462 Unknown [id number] 2.840.1.549268.3.579.2. 462 Unknown [id number] 2.840.1.079259.3.579.2. 462 Unknown [id number] 2.840.1.182323.3.579.2. 462 Unknown [id number] 2.840.1.855054.3.579.2. 462 Unknown [id number] 2.840.1.700547.3.579.2. 462 Unknown [id number] 2.840.1.346418.3.579.2. 462 Unknown [id number] 2.16840.1.761311.3.579.2. 462 Unknown [id number] 2.840.1.711735.3.579.2. 462 Unknown [id number] 2.16.840.1.806896.3.579.2. 462 Unknown [id number] 2.16.840.1.724104.3.579.2. 462 Unknown [id number] 2.16.840.1.929531.3.579.2. 462 Unknown [id number] 2.16.840.1.220534.3.579.2. 462 Unknown [id number] 2.840.1.026629.3.579.2. 462 Unknown [id number] 2.840.1.232766.3.579.2. 462 Unknown [id number] 2.840.1.921484.3.579.2. 462 Unknown [id number] 2.840.1.965019.3.579.2. 462 Unknown [id number] 2.840.1.562902.3.579.2. 462 Unknown [id number] 2.840.1.780990.3.579.2. 462 Unknown [id number] 2.840.1.964459.3.579.2. 462 Unknown [id number] 2.840.1.780550.3.579.2. 462 Unknown [id number] 2.840.1.102392.3.579.2. 462 Unknown [id number] 2.840.1.053274.3.579.2. 462 Unknown [id number] 2.840.1.377895.3.579.2. 462 Unknown [id number] 2.840.1.816830.3.579.2. 462 Unknown [id number] 2.840.1.569328.3.579.2. 462 Unknown [id number] 2.16840.1.974361.3.579.2. 462 Unknown [id number] 2.16.840.1.429898.3.579.2. 462 Unknown [id number] 2.16.840.1.540372.3.579.2. 462 Unknown [id number] 2.16.840.1.116179.3.579.2. 462 Unknown [id number] 2.16.840.1.224047.3.579.2. 462 Unknown [id number] 2.16.840.1.635078.3.579.2. 462 Unknown [id number] 2.16.840.1.573642.3.579.2. 462 Unknown [id number] 2.16.840.1.544917.3.579.2. 462 Unknown [id number] 2.16.840.1.173159.3.579.2. 462 Unknown [id number] 2.16.840.1.132705.3.579.2. 462 Unknown [id number] 2.16.840.1.281131.3.579.2. 462 Unknown [id number] 2.16.840.1.419446.3.579.2. 462 Unknown [id number] 2.16.840.1.191266.3.579.2. 462 Social History Date Type Detail Facility Start: 11-26-2021 End: 07-22-2022 Tobacco smoking status NHIS Unknown if ever smoked [facility] Work Phone: Start: 07-17-2020 Non-smoker [facility] Work Phone: Start: 1955 Sex Assigned At Female [facility] Work Phone: Start: 09-23-2022 Tobacco smoking status Heavy t obacco smoker (finding) [facility] Sex Assigned At Sex [facility] Start: 11-08-2022 Tobacco smoking stat us WIIS Smokes tobacco daily [facility] Work Phone: History of tobacco use Cigarette Smoker C [facility] Work Phone: Start: 11-08-2022 End: 12-05-2024 Cigarettes smoked current (pack per day) - Reported 0.5 [facility] Start: 11-08-2022 End: 12-05-2024 Tobacco use and exposure User of smokeless tobacco [facility] Work Phone: Start: 11-08-2022 End: 11-25-2022 Alcohol intake Lifetime non-drinker (finding) [facility] Start: 04-24-2019 History SDOH Alcohol Frequency 1 [facility] Start: 11-08-2022 Tobacco Comment pt smoke half pack per day [facility] Start: 1955 Sex Assigned At Not on file [facility] Start: 04-24-2019 End: 12-05-2024 Alcohol Use Disorder Identification Test - Consumption [AUDIT-C] [facility] How often to you hav e a drink containing alcohol? Never [facility] Start: 08-05-2012 Average Number of Drinks Not on file [facility] Start: 12-05-2024 Tobacco smoking stat us WIIS Ex-smoker [facility] History of tobacco use Current smoker [facility] Start: 12-05-2024 End: 03-06-2025 Alcoholic beverage intake Ex-drinker (finding) [facility] Start: 12-05-2024 Alcohol Comment daily -none si nce 05/2022 [facility] Medical Equipment Procedure Code Equipment [...] Facility 09-23-2022 Functional Status Up ad manpreet [facility] 09-23-2022 Functional Status Standard Safet y ID band on, Allergy Band on, Call device within reach, Bed in low position, Wheels locked, Upper/Half-Length side-rails up, Visitor at bedside [facility] Mental Status Date Assessment Result Facility 09-23-2022 Mental Status Orientation Oriented x 4 [facility] 09-23-2022 Mental Status [facility] Clinical Notes 09-23-2022 to 06-23-2025 Patient InstructionsGaWinnie danielle PA-C - 03/06/2025 12:52 PM EDTTelephone Encounter - Whit Jang MA - 12/06/2024 2:48 PM EDTTelephone Encounter - Whit Jang MA - 12/06/2024 2:48 PM EDT Note Date & Type Note Facility [facility] HNO ID: [id number] Author: WINNIE HERNANDEZ PA-C Service: ? Author Type: Physician Patent Counsel Type: Progress Notes Filed: 06/11/2025 17:49 Note Text: Rheumatology Clinic Visit June 11, 2025 Last seen: 03/06/2025 (with Winnie Hernandez) CC: Established Patient (Follow up) HPI: Lele Pang is a 70 year old female who follows with rheumatology for Rheumatoid arthritis. BRIEF RHEUM History: Diagnosed with RA in 2015 though [facility] after multiple trigger finger surgeries and elevated rheumatologic markers. - Initially treated with methotrexate injections, which was later switched to leflunomide -history of osteoarthritis in her back and hips, for which she receives injections. She recently had a lumbar injection for severe sciatica with pain management at [facility], which significantly limited her mobility and daily [...] Surgery scheduled 06/23/[address] Chow at [place] [facility], planning a lumbar fusion L4. Mood [...] Negative Negative Last Bone Density: 12/18/2024 at [facility] - LS T-score -2.2 stable (3% [...] OUTSIDE STUDIES / DATA Labs done at [facility]. 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 [facility] 03-06-2025 Instructions Winnie Hernandez PA-C - 03/06/2025 1:29 PM EDT Labs due in May documented in this encounter [facility] 03-06-2025 Note HNO ID: [id number] Author: WINNIE HERNANDEZ PA-C Service: ? Author Type: Physician Patent Counsel Type: Progress Notes Filed: 03/06/2025 13:57 Note Text: Rheumatology Clinic Visit March 06, 2025 Last seen: 12/05/24 CC: Follow Up HPI: Lele Pang is a 69 year old female who follows with rheumatology for Rheumatoid arthritis. BRIEF RHEUM History: Diagnosed with RA in 2014 though [facility] after multiple trigger finger surgeries and elevated rheumatologic markers. - Initially treated with methotrexate injections, which was later switched to leflunomide -history of osteoarthritis in her back and hips, for which she receives injections. She recently had a lumbar injection for severe sciatica with pain management at [facility], which significantly limited her mobility and daily [...] stress test and ECHO done all through [facility]. Mentally she feels like she is [...] Negative Negative Last Bone Density: 12/18/2024 at [facility] - LS T-score -2.2 stable (3% [...] STUDIES / DATA Labs done 25 at [facility]. 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 [facility] 03-06-2025 History of Presen t illness Narrative Images from the original note were not included. Rheumatology Clinic Visit March 06, 2025 Last seen: 12/05/24 CC: Follow Up HPI: Lele Pang is a 69 year old female who follows with rheumatology for Rheumatoid arthritis. BRIEF RHEUM History: Diagnosed with RA in 2015 though [facility] after multiple trigger finger surgeries and elevated rheumatologic markers. - Initially treated with methotrexate injections, which was later switched to leflunomide -history of osteoarthritis in her back and hips, for which she receives injections. She recently had a lumbar injection for severe sciatica with pain management at [facility], which significantly limited her mobility and daily [...] stress test and ECHO done all through [facility]. Mentally she feels like she is [...] Negative Negative Last Bone Density: 12/18/2024 at [facility] - LS T-score -2.2 stable (3% [...] STUDIES / DATA Labs done 25 at [facility]. 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 Arteaga PAST SURGICAL HISTORY OF [...] in the lumbar spine DEXA 12/18/2024 at [facility] - LS T-score -2.2 stable (3% [...] claudication present - has surgery scheduled with [facility] if she can pass nicotine testing. [...] which included preparing to see the patient, [id number] patient care, completing clinical documentation, obtaining and/or reviewing separately obtained history, performing a medically appropriate examination, counseling and educating the patient/family/caregiver, and ordering medications, tests, or procedures. Winnie Hernandez PA-C documented in this encounter [facility] 12-29-2024 Note HNO ID: [id number] Author: JOSEFA SERNA APRN.LUMBER BUYER Service: ? Author Type: Nurse Practitioner Type: [...] pressure medications. Friend will take her now. [facility] 12-06-2024 Telephone encounter Note 109 pages of records received via fax from [facility]. Can be found under scanned documents. [facility] 12-06-2024 Miscellaneous Notes 109 pages of records received via fax from [facility]. Can be found under scanned documents. Message left on voicemail at [facility] for past records for this patient to be faxed to this office. documented in this encounter [facility] 12-05-2024 Telephone encounter Note Message left on voicemail at [facility] for past records for this patient to be faxed to this office. [facility] 12-05-2024 Winnie Negrete PA-C - 12/05/2024 11:54 AM EDT We discussed your rheumatoid arthritis: - Continue taking Leflunomide as prescribed. A 90-day supply has been sent to your pharmacy ([facility] on [address], [address]). - Schedule follow-up [...] - Schedule a bone density test at [facility] before your next visit to monitor [...] usual activities immediately. documented in this encounter [facility] 12-05-2024 Note HNO ID: [id number] Author: WINNIE HERNANDEZ PA-C Service: ? Author Type: Physician Patent Counsel Type: Progress Notes Filed: 12/05/2024 21:46 Note Text: Rheumatology CONSULTATION Date of Service: 12/05/2024 Patient: Lele Pang Medical Record: [id number] Primary Care Physician: Yady Vera MD Last Rheumatology visit: None at [facility] Referring Provider: Daron Kraft [facility] [id number] Lele Pang is here today at request of Dr. Mark specifically for consultation of my opinion in regards to the chief complaint listed below. Correspondence will be shared today via the [employer] electronic health record or through regular mail, where applicable. History of Present Illness Lele is a 69-year-old female with a history of RA, presenting for evaluation and management. She is currently taking leflunomide. Lele is both RF - 34 (09/26/2023) and CCP positive. 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 Arteaga PAST SURGICAL HISTORY OF [...] Reported on 12/05/2024) (more content not included)... [facility] 12-05-2024 History of Presen t illness Narrative Images from the original note were not included. Rheumatology CONSULTATION Date of Service: 12/05/2024 Patient: Lele Pang Medical Record: [id number] Primary Care Physician: Yady Vera MD Last Rheumatology visit: None at [facility] Referring Provider: Daron Zaidi E [facility] [id number] Lele Pang is here today at request of Dr. Mark specifically for consultation of my opinion in regards to the chief complaint listed below. Correspondence will be shared today via the [facility] electronic health record or through regular mail, where applicable. History of Present Illness Lele is a 69-year-old female with a history of RA, presenting for evaluation and management. She is currently taking leflunomide. Lele is both RF - 34 (09/26/2023) and CCP positive. 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 Arteaga PAST SURGICAL HISTORY OF [...] - 15.5 g/dL 14.3 13.9 13.8 Hemoglobin, [place] 12.0 - 16.0 g/dL 13.9 Hematocrit 36.0 - 46.0 % 42.9 44.8 43.2 Platelet Count 150 - 400 k/uL 232 251 257 Abs Neut (ANC) 1.45 - 7.50 k/uL 4.98 3.39 2.37 Abs Neut, [place] 2.0 - 8.1 k/uL 2.8 Abs Lymp, [place] 1.0 - 5.5 k/uL 2.1 Abs Lymph 1.00 - 4.00 k/uL 2.98 1.38 1.79 Latest Ref Rng & Units 07/21/2009 01/27/2013 05/03/2019 09/26/2023 CMP Sodium 136 - 144 mmol/L 142 139 140 Sodium, [place] 136 - 145 mmol/L 144 Potassium 3.7 - 5.1 mmol/L 4.0 3.9 3.8 Potassium, [place] 3.5 - 5.1 mmol/L 4.4 Chloride 97 - 105 mmol/L 105 108 104 Chloride, [place] 98 - 107 mmol/L 105 CO2 22 - 30 mmol/L 28 24 28 CO2, Paul 21.0 - 32.0 mmol/L 27.8 Glucose 74 - 99 mg/dL 90 97 102 Glucose, [place] 70 - 99 mg/dL 96 BUN 7 - 21 mg/dL 14 19 20 BUN, [place] 7 - 18 mg/dL 17 Creatinine 0.58 - 0.96 mg/dL 0.79 0.70 0.72 Creatinine, [place] 0.6 - 1.0 mg/dL 0.7 Calcium, [place] 8.5 - 10.1 mg/dL 9.0 Calcium 8.5 - 10.2 mg/dL 9.6 10.1 10.2 AST 13 - 35 U/L 32 15 26 AST, [place] 15 - 37 U/L 20 ALT 7 [...] STUDIES / DATA Labs done 25 at [facility]. 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
--- NOTE | 2025-06-23 17:46 | PCM.CONS.GEN ---
Assessment & Plan Assessment/Plan (1) Rheumatoid arthritis: QUALIFIERS: Rheumatoid arthritis location: unspecified site Rheumatoid factor presence: with rheumatoid factor Qualified Code(s): M05.9 - Rheumatoid arthritis with rheumatoid factor, unspecified PLAN: Plan # History of RA -Takes leflunomide chronically, held for surgery #Hx asthma -Continue home inhalers -Incentive spirometer - Albuterol as needed #Depression/anxiety -Continue home medications # ADHD - Can likely hold methylphenidate while admitted #Hypertension - Most recent blood pressure 98/66, holding home blood pressure medications to allow for pain control, add back as blood pressure tolerates #GERD -Continue PPI #Spinal stenosis -s/p L3-4 anterior posterior fusion with L3-5 revision posterior instrumentation and fusion w/ Dr. Chow 06/23/25 -Management/pain management per primary -PT/OT #DVT PPx: Timing and agent at discretion of primary Time spent in the patient's overall evaluation,decision-making process, review of diagnostic data, adjustment of management, discussion with other providers, nursing nursing and ancillary staff involved in patient's care documentation, 22 Minutes HPI Consult Data Date of Consult: 06/23/25 HPI Narrative Reason for Consultation: post op medical management HPI Narrative: LELE ABDUL, is a 70-year-old female history of asthma, depression, ADHD, hypertension, RA, GERD, spinal stenosis who presented [facility] 06/23/2025 for L3-4 anterior posterior fusion with L3-5 revision posterior instrumentation and fusion w/ Dr. Chow. Hospitalist contacted for post op medical management. Pt evaluated at bedside. Patient seen shortly after she arrived to the floor, feeling little bit short of breath but oxygen in place and not in respiratory distress, no cough, no chest pain. No other new or acute complaints [facility] Medical History History of trigger finger History of Holter monitoring Impingement of right shoulder Primary osteoarthritis, right shoulder Right shoulder pain Vapes nicotine containing substance Osteoarthritis Lumbar radiculopathy Impacted cerumen of both ears Wears glasses High cholesterol Former smoker Hypertension History of echocardiogram History of stress test Cardiology follow-up encounter Vitamin deficiency Chronic constipation Borderline type 2 diabetes mellitus Alcohol use disorder in remission Depression, unspecified ADHD Heat intolerance Osteopenia with high risk of fracture Smoking greater than 40 pack years Tremor Nicotine dependence, cigarettes, uncomplicated Insomnia CARBAJAL (dyspnea on exertion) Shortness of breath Abnormal EKG AA (alcohol abuse) COVID-19 vaccine series completed Essential hypertension Acute low back pain ADD (attention deficit disorder) Back pain Jaw swelling Low back pain due to bilateral sciatica Tobacco use disorder, continuous Encounter for screening for malignant neoplasm of lung in current smoker with 30 pack year history or greater Post-menopausal Eosinophilia Abnormal bruising Hay fever Fatigue Spinal cord stimulator status Overweight GERD (gastroesophageal reflux disease) Rheumatoid arthritis Primary osteoarthritis of left hip Vitamin D deficiency Anxiety and depression Rheumatoid arthritis Neuropathy Hyperlipemia Chronic bronchitis Cataracts, bilateral Asthma History of alcohol abuse Seasonal allergies Unilateral primary osteoarthritis, right hip Spondylosis of 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 myelopathy or radiculopathy Spinal stenosis of lumbosacral region Radiculopathy of lumbosacral region Degeneration, intervertebral disc, lumbosacral Home Medications ?Medication ?Instructions ?Recorded ?Last Taken ?Type blood pressure monitor (Blood #1 ea 09/30/20 Unknown Rx Pressure Kit) omeprazole 40 mg capsule,delayed 40 mg PO DAILY GERD #90 caps 12/15/22 06/23/25 05:00 Rx release albuterol sulfate 90 mcg/actuation 2 puff inhalation Q6H PRN 02/23/23 Unknown Rx aerosol inhaler (ProAir HFA) shortness of breath or wheezing #8.5 grams Handicap Placard #1 ea 07/26/23 Unknown Rx amlodipine 10 mg tablet 10 mg PO DAILY BP #90 tabs 09/13/23 Unknown Rx 3 mL syringe with 1 inch 25-gauge #6 ea 10/24/24 Unknown Rx needle acyclovir 400 mg tablet 400 mg PO MOWEFR HPV 11/12/24 Unknown History alendronate 70 mg tablet 70 mg PO QWEEK BONE HEALTH 11/12/24 06/19/25 History methylphenidate HCl 30 mg biphasic 30 mg PO BID ADHD 11/12/24 Unknown History 50-50 capsule,extended release Symbicort 160 mcg-4.5 2 inh inhalation BID ASTHMA #10.2 12/18/24 06/23/25 Rx mcg/actuation HFA aerosol inhaler grams (budesonide-formoterol) pregabalin 150 mg capsule 150 mg PO TID RA 12/19/24 06/23/25 05:00 History valsartan 320 mg tablet 320 mg PO DAILY BP 12/29/24 Unknown History aspirin 81 mg tablet 81 mg PO QDAY BLOOD THINNER 02/10/25 06/21/25 History leflunomide 20 mg tablet 20 mg PO QDAY RA 02/10/25 Unknown History albuterol sulfate 2.5 mg/3 mL 2.5 mg (3 mL) inhalation Q4H PRN 02/26/25 Unknown Rx (0.083 %) solution for nebulization Sob &/Or Wheezing #180 mL brexpiprazole 0.5 mg tablet 0.5 mg PO QHS ANTIDEPRESSANT 03/04/25 Unknown History (Rexulti) linaclotide 72 mcg capsule 72 mcg PO MOWEFR CONSTIPATION 03/04/25 Unknown History dextromethorphan IR 45 1 tab PO DAILY ANTIDEPRESSANT 06/09/25 Unknown History mg-bupropion ER 105 mg biphasic tablet (Auvelity) ergocalciferol (vitamin D2) 1,250 1,250 mcg PO QMONTH SUPPLEMENT 06/09/25 Unknown History mcg (50,000 unit) capsule (Vitamin D2) furosemide 40 mg tablet 40 mg PO DAILY DIUERTIC 06/09/25 Unknown History pravastatin 40 mg tablet 40 mg PO MOWEFR CHOLESTEROL 06/09/25 Unknown History spironolactone 25 mg tablet 25 mg PO DAILY BP 06/09/25 Unknown History (Aldactone) calcium 600 mg (as carbonate)-vit 1 tab PO QDAY 06/12/25 Unknown History D3 10 mcg (400 unit) chewable tablet (Calcium 600 with Vitamin D3) propranolol 20 mg tablet 20 mg PO BID TREMORS #60 tabs 06/12/25 06/23/25 05:00 Rx tizanidine 4 mg tablet 4 mg PO QHS muscle 06/23/25 Unknown History spasticity/muscle pain/insomnia Allergy/AdvReac Type Severity Reaction Status Date / Time Penicillins Allergy Mild Hives Verified 06/23/25 06:14 adhesive tape AdvReac Severe Rash, Verified 06/23/25 06:14 itchy, raw acetaminophen (From Percocet) AdvReac Intermediate insomnia Verified 06/23/25 06:14 oxycodone (From Percocet) AdvReac Intermediate insomnia Verified 06/23/25 06:14 benzonatate (From Tessalon AdvReac Mild Itching Verified 06/23/25 06:14 Chi) Family History Brother CAD (coronary artery disease), Onset Age: 70 CABG Other Alcoholism Arthritis Asthma Heart disease Hyperlipemia Hypertension Surgical History Hx of colonoscopy Hx of colonoscopy Status post left foot surgery Hx of shoulder surgery History of hysterectomy History of foot surgery History of back surgery Status post trigger finger release History of carpal tunnel surgery History of rotator cuff surgery Social History Smoking Status: Former smoker Tobacco: How many years used: 40 Electronic Cigarette Use: with nicotine second hand exposure: Yes quit status: considering quitting alcohol intake: former substance use type: does not use what type of physical activity do you participate in: walking ROS ROS Narrative ROS reviewed and pertinent positives and negatives as above Physical Exam Narrative General: Alert, oriented HEENT: Atraumatic, normocephalic Eyes: Anicteric, little bit puffy around her eyes Neck: Supple Respiratory: Clear to auscultation bilaterally, normal respiratory effort Cardiovascular: Regular rate and rhythm GI: Soft, nontender, nondistended Extremities: No significant pitting edema Musculoskeletal: Moving all extremities Neuro: No overt focal neurological deficits Skin: No rashes appreciated Psych: Cooperative Lab / Micro Data Labs: Laboratory Results - last 24 hr 06/23/25 06:06: POC Glucose 112 H Charges/Coding Visit Charges Office Visits / Consults: [id number] OV L3 Est 20min
[2025-06-23] MEDS: Budesonide Respules 0.5 MG/2 ML AMPUL.NEB. INHALATION (19:30)
[2025-06-23] MEDS: HYDROcodone Bitartrate/Apap 5/325 Tablet PO (21:30)
[2025-06-23] MEDS: Senna/Docusate Sodium 1 Tablet 2 TABLET PO (21:31)
--- NOTE | 2025-06-24 05:15 | RAD_ITS ---
PROCEDURE: LUMBAR SPINE 2 OR 3 VIEWS 06/24/2025 REASON FOR EXAM: STATUS POST LUMBAR FUSION TECHNIQUE: Procedure Code: RADSPLL Modality: DX Procedure: LUMBAR SPINE 2 OR 3 VIEWS COMPARISON: CT scan on 02/21/2025. FINDINGS: Spinal stimulator is noted. Grade 1 anterolisthesis of L4 on L5, unchanged. Unremarkable transpedicular screws at L4-L5. Left lateral L4/L5 metallic plate and screws in the interim are unremarkable. Disc spacer is unremarkable at L4-L5. Unchanged exaggerated lumbar lordosis. Mild degenerative dextroscoliosis apex at L3. There are diffuse spondylotic changes. Findings are demonstrated to by diffuse disc space narrowing, osteophyte formation and degenerative endplate sclerosis. There is diffuse facet joint arthropathy with secondary bilateral neural foramina narrowing. No fracture or dislocation is seen. No aggressive lytic or blastic bony lesion is noted. RAD/Lumbar Spine 2 or 3 Views IMPRESSION: Spinal stimulator is noted. Grade 1 anterolisthesis of L4 on L5, unchanged. Unremarkable transpedicular screws at L4-L5. Left lateral L4/L5 metallic plate and screws in the interim are unremarkable. Disc spacer is unremarkable at L4-L5. Unchanged exaggerated lumbar lordosis. Mild degenerative dextroscoliosis apex at L3. Reading Location: [facility]
[2025-06-24 05:36] VITALS: BP 102/57; PULSE 66; RESP 18; TEMP 36.9; O2SAT 96
[2025-06-24 06:40] LABS: Hematocrit 32.0 % (37-47); Hemoglobin 10.0 g/dL (12.0-15.0); Immature Granulocytes Count 0.030 X10^3/uL (0.0-0.0); Mean Corp Hgb Conc 31.3 g/dL (32-36); Mean Corpuscular Volume 90.4 fL (81-99); Mean Platelet Vol. 11.2 fl (6.2-12.0); NRBC Flagged by Analyzer 0 % (0-5); POSITIVE MORPHOLOGY YES; Platelet Count 188 K/mm3 (150-450); RBC Distribution Width CV 13.9 % (11.6-14.6); RBC Distribution Width SD 45.9 fl (35.1-43.9); Red Blood Count 3.54 M/mm3 (4.2-5.4); White Blood Count 9.3 K/mm3 (4.4-11.0)
[2025-06-24 06:45] LABS: Differential Indicated SCAN CRITERIA MET
[2025-06-24 07:18] LABS: Anion Gap 9 (5-15); BUN 17 mg/dL (4-19); BUN/Creat Ratio 18.5 RATIO (10-20); Calcium,Total 8.6 mg/dL (7.6-11.0); Carbon Dioxide 24.5 mmol/L (21.0-32.0); Chloride 107 mmol/L (98-108); Estimated Creatinine Clearance 46.84 ml/min (50-250); Glucose 123 mg/dL (70-99); Potassium 4.3 mmol/L (3.3-5.1)
[2025-06-24] MEDS: Budesonide Respules 0.5 MG/2 ML AMPUL.NEB. INHALATION (07:33)
[2025-06-24 07:34] VITALS: PULSE 68; RESP 16
[2025-06-24 08:00] VITALS: O2SAT 96
[2025-06-24] MEDS: HYDROcodone Bitartrate/Apap 5/325 Tablet PO ×2 (08:53→15:36)
[2025-06-24] MEDS: Senna/Docusate Sodium 1 Tablet 2 TABLET PO (08:55)
--- NOTE | 2025-06-24 09:23 | PCM.PN.ORT ---
Subjective Subjective Patient is postop day 1 L3-4 fusion with revision of prior hardware L4-5. Patient is doing relatively well with her pain well-controlled. She does report that she has not been walking much following the surgery. The patient was seen at the bedside today. She also reports an increase in tremors. While standing at the bedside these tremors seem to be occasional. The patient has a prior allergy to Percocet which causes insomnia. Discussed with the patient that she was given oxycodone which she said she did not notice any current insomnia related to that. No flatus yet. Seen with Dr. Chow. Objective Data Objective Data Vital Signs: Vital Signs Temp Pulse Resp BP Pulse Ox O2 Del Method O2 Flow Rate 98.5 F 68 16 102/57 L 96 Room Air 2 06/24/25 05:36 06/24/25 07:34 06/24/25 07:34 06/24/25 05:36 06/24/25 08:00 06/24/25 05:36 06/23/25 18:57 Oxygen Flow Rate (L/min) 2 Oxygen Delivery Method Room Air Weight: 141 lb 1.533 oz Body Mass Index (BMI) 29.5 Intake & Output: Intake and Output for Last 24 Hours 06/22/25 06/23/25 06/24/25 23:59 23:59 23:59 Intake Total 3345.75 / 3345.75 506.25 / 506.25 Output Total 450 / 450 Balance 2895.75 / 2895.75 506.25 / 506.25 Lab / Micro Data 06/24/25 05:53 06/24/25 05:53 Labs: Laboratory Results - last 24 hr 06/24/25 05:53: WBC 9.3, RBC 3.54 L, Hgb 10.0 L, Hct 32.0 L, MCV 90.4, MCH 28.2, MCHC 31.3 L, RDW Std Deviation 45.9 H, RDW Coeff of Chris 13.9, Plt Count 188, MPV 11.2, Immature Gran % (Auto) 0.300, Neut % (Auto) 59.9, Lymph % (Auto) 13.7 L, [place] % (Auto) 9.1, Eos % (Auto) 16.6 H, Baso % (Auto) 0.4, Absolute Neuts (auto) 5.6, Absolute Lymphs (auto) 1.27, Nucleated RBC % 0, Sodium 140, Potassium 4.3, Chloride 107, Carbon Dioxide 24.5, Anion Gap 9, BUN 17, Creatinine 0.92, Estim Creat Clear Calc 46.84 L, Est GFR (MDRD) Non-Af 67, BUN/Creatinine Ratio 18.5, Glucose 123 H, Calcium 8.6 Radiography Diagnostic Testing: Radiology Impression Lumbar Spine X-Ray 06/23/25 07:30 IMPRESSION: Fluoroscopic guidance was used intraoperatively. Please refer to operative note for further details. Reading Location: [id number] Lumbar Spine X-Ray 06/24/25 05:15 IMPRESSION: Spinal stimulator is noted. Grade 1 anterolisthesis of L4 on L5, unchanged. Unremarkable transpedicular screws at L4-L5. Left lateral L4/L5 metallic plate and screws in the interim are unremarkable. Disc spacer is unremarkable at L4-L5. Unchanged exaggerated lumbar lordosis. Mild degenerative dextroscoliosis apex at L3. [facility] Physical Exam Narrative Neurological examination of the lower extremity shows 5X5 power. Normal sensation across all dermatomes. Physical examination of the back and belly shows Tegaderm and gauze CDI. Const alert, oriented x3 and no apparent distress Assessment & Plan Assessment/Plan (1) Status post lumbar spinal fusion: PLAN: Plan Postop day 1 L3-4 fusion with revision of prior hardware. Pain well-controlled. Obtained and reviewed x-rays today which show hardware and bone graft in good position. Encouraged the patient to walk more as she has not yet been very mobile following the surgery. PT/OT on board. Discussed that they would need to say it is safe for the patient to return home before she is able to do so. Reviewed and educated on the use of the incentive spirometer. Reviewed and educated on restrictions of no bending, lifting, twisting. Patient has not yet passed gas. Dulcolax x 1 ordered. Discussed that after she does pass gas to let nursing know so that they can advance her to a regular diet. Continue liquids until flatus is passed. Home-going meds will include oxycodone, acetaminophen, meloxicam, methocarbamol, senna. She will follow-up in 2 weeks. Patient is in agreement to the plan.
[2025-06-24 09:28] VITALS: BP 125/75; PULSE 77; RESP 16; TEMP 36.6; O2SAT 97
--- NOTE | 2025-06-24 10:27 | CASEMGMT ---
Discharge Planning A list of?SNF providers including quality and resource use data and consistent with the patient's preferred geographic region, medical needs, and insurance network was created in [facility] Guide.? This list was provided to the RN VAMSI. Rosalba Mendez, Discharge Planning Asst.
--- NOTE | 2025-06-24 10:42 | CASEMGMT ---
Addendum entered by Veronica Cortez 06/24/25 13:07: JOSE RAMON AGUSTIN into pt room, pt is aware that she will not be appropriate for SNF stay. Pt states she has already called her sisters to come to assist her. Pt denies need for HHC at this time. Pt ambulating in room on own. Pt denies any further homegoing needs. Addendum entered by Veronica Cortez 06/24/25 11:54: SW updated that pt is now inquiring on SNF. JOSE RAMON AGUSTIN into pt room, pt sitting up on eob. Pt states that she feel shaky and is not sure she can return home. She states that her sisters from out of town stated they would come stay with her if she did not have any other arrangements but she does not want to bother them to do that now. Discussed that pt ambulated 400 feet and insurance likely would not cover SNF stay. JOSE RAMON AGUSTIN to check into any options that pt may have with her KUSHAL. JOSE RAMON AGUSTIN to follow. Original Note: JOSE RAMON AGUSTIN Assessment: Face to Face with pt for initial transition planning/care coordination assessment. JOSE RAMON AGUSTIN introduced self and role at [facility], pt voices understanding and consents to assessment. Pt is A&O x4 and answers all questions appropriately at this time. Pt sitting up in bed in no distress. Care providers, pharmacy, and demographics verified/updated. Admitting Dx:360 Lumbar fusion L3-4 Strata Score: 1 PCP:Kvng Orellana [facility] Specialists:Geraldo, ortho; Efra, nephro; Jeffery, pain mgmt; Hetal, psych; Amy, neuro Preferred Pharmacy: [facility] Insurance: Robby [facility], [facility] Community Plan [facility] Prescription Benefit: yes LNOK: Janell Fonseca, dtr; Stew Beaulieu, son Living Arrangements: Pt lives alone in a ground level apt with a step up from the curb to enter. Pt reports prior to surgery she was I in ADL/IADLs and denies concerns at home. Transportation: Pt drives self and denies concerns with transportation. Pt states her dtr will transport her until she can drive again. DME:lazaro, [facility] HHC/SNF: Denies hx of Pt states no concerns with going home at time of dc. Spoke with PT and OT is recommending additional therapy. Discussed this with pt and she states that since she is moving around more now, she does not feel she needs this. Pt states her sister will spend the night with her tonight and then another sister is staying until the weekend. Pt dtr will be available on the weekend to stay with her. Provided pt with a [facility] list that dc merchandising assistant created in case she should change her mind prior to dc. Pt states she feels better now and does not think this will be necessary. Pt states no further concerns/needs. CM to follow. Advised pt to ask CM if any further questions/concerns/needs arise, voices understanding. Pt Goal: Home Plan: Home Suyapa ALBRIGHT CM
--- NOTE | 2025-06-24 11:41 | CASEMGMT ---
Social Work- SW met with pt to complete SDOH assessment and verify directives. Pt reports that pt dtr assists with transport as needed, but pt was receptive to transportation resources including [employer], [facility] [employer], and [employer] transport list. Pt reports no concerns regarding housing, food, utilities, or safety. Pt did report that she feels unsteady and questioned if she could go home alone safely d/t tremors and instability. Pt reported to RNCM and PT that she had family staying with her through the weekend. Pt ambulated 400' and therapy did not note instability. SW provided education on household distances and SNF parameters, as well as C, [facility], and other community supports. SW updated RNCM, who has been following pt. RNCM to follow up with pt on discharge preferences. SUNSHINE Bustamante
--- NOTE | 2025-06-24 14:04 | PCM.PN.HOSP ---
Subjective Subjective Saw patient at bedside this morning. Patient was sitting comfortably in bedside chair, conversing normally, in no acute distress. She did report a mild increase in her tremors this morning. She otherwise notes that her pain has been well-controlled since surgery yesterday, and she did well with physical therapy this morning. No other new concerns today. Objective Data Objective Data Vital Signs: Vital Signs Temp Pulse Resp BP Pulse Ox O2 Del Method O2 Flow Rate 97.8 F 77 16 125/75 H 97 Room Air 2 06/24/25 09:28 06/24/25 09:28 06/24/25 09:28 06/24/25 09:28 06/24/25 09:28 06/24/25 09:31 06/23/25 18:57 Oxygen Flow Rate (L/min) 2 Oxygen Delivery Method Room Air Weight: 64 kg Body Mass Index (BMI) 29.5 Intake & Output: Intake and Output for Last 24 Hours 06/22/25 06/23/25 06/24/25 23:59 23:59 23:59 Intake Total 3345.75 / 3345.75 506.25 / 506.25 Output Total 450 / 450 Balance 2895.75 / 2895.75 506.25 / 506.25 Lab / Micro Data 06/24/25 05:53 06/24/25 05:53 Labs: Laboratory Results - last 24 hr 06/24/25 05:53: WBC 9.3, RBC 3.54 L, Hgb 10.0 L, Hct 32.0 L, MCV 90.4, MCH 28.2, MCHC 31.3 L, RDW Std Deviation 45.9 H, RDW Coeff of Chris 13.9, Plt Count 188, MPV 11.2, Immature Gran % (Auto) 0.300, Neut % (Auto) 59.9, Lymph % (Auto) 13.7 L, [place] % (Auto) 9.1, Eos % (Auto) 16.6 H, Baso % (Auto) 0.4, Absolute Neuts (auto) 5.6, Absolute Lymphs (auto) 1.27, Nucleated RBC % 0, Sodium 140, Potassium 4.3, Chloride 107, Carbon Dioxide 24.5, Anion Gap 9, BUN 17, Creatinine 0.92, Estim Creat Clear Calc 46.84 L, Est GFR (MDRD) Non-Af 67, BUN/Creatinine Ratio 18.5, Glucose 123 H, Calcium 8.6 Radiography Diagnostic Testing: Radiology Impression Lumbar Spine X-Ray 06/23/25 07:30 IMPRESSION: Fluoroscopic guidance was used intraoperatively. Please refer to operative note for further details. Reading Location: [facility] Lumbar Spine X-Ray 06/24/25 05:15 IMPRESSION: Spinal stimulator is noted. Grade 1 anterolisthesis of L4 on L5, unchanged. Unremarkable transpedicular screws at L4-L5. Left lateral L4/L5 metallic plate and screws in the interim are unremarkable. Disc spacer is unremarkable at L4-L5. Unchanged exaggerated lumbar lordosis. Mild degenerative dextroscoliosis apex at L3. Reading Location: [place] [id number] Physical Exam Const alert, oriented x3, no apparent distress and average body habitus Constitutional Narrative: Elderly female, overweight, mildly fatigued appearing but otherwise sitting comfortably in bedside chair, conversing normally, in no acute distress. General Appearance: cooperative and comfortable HEENT normocephalic, head/scalp atraumatic, hearing grossly normal bilaterally, nasal mucous membranes and turbinates normal and moist oral mucous membranes Eyes PERRL, EOMs intact bilaterally and conjunctivae normal Neck full ROM Chest inspection of chest normal Resp normal respiratory effort, normal air movement, no use of accessory muscles and clear to auscultation bilaterally Cardio regular rate, regular rhythm, no murmurs and peripheral pulses 2+ throughout GI normal to inspection, nondistended, normoactive bowel sounds, soft to palpation, non-tender and non-distended Back/Spine Back/Spine Narrative: Mild tenderness to palpation in low back with mild decreased range of motion noted. Surgical dressing in place. Extremity normal to inspection, full ROM and no pedal edema Skin no rashes or lesions noted Neuro moves all extremities and no focal motor deficits Neuro Narrative: Mild intermittent bilateral upper extremity tremor noted. Psych mental status grossly normal Assessment & Plan Assessment/Plan (1) Spinal stenosis of lumbar region with neurogenic claudication: PLAN: Plan Patient is a 70-year-old female who presented [facility] on 06/23/2025 for planned lumbar fusion procedure. Medicine consulted postoperatively for medical management. 1. Lumbar spine stenosis ? Orthopedic surgery primary. S/p L3-4 anterior posterior fusion with L3-5 revision posterior instrumentation and fusion with Dr. Chow on 06/23. Tolerated procedure well, no intraoperative complications noted. Pain control and DVT prophylaxis per orthopedics. PT/OT/case management following. 2. Chronic tremors ? Patient reported mild worsening of bilateral upper extremity tremors on hospital day 2. On exam, tremors appeared intermittent and intensity worsened when patient was discussing these tremors. Home propranolol was held postoperatively due to mild hypotension as below, okay to restart at this time. 3. History of RA ? Takes leflunomide chronically. Held for surgery. Will defer to orthopedics on timing of restarting this. 4. History of asthma ? Stable on room air postoperatively, not in acute exacerbation. Continue home inhalers. 5. Depression/anxiety ? Patient is on home brexpiprazole 0.5 mg at night. This is not on formulary and patient was unable to bring this into the hospital. Low risk for withdrawal from this medication given the low dose and 1 time daily dosing. Okay to resume on discharge. 6. ADHD ? Okay to hold home methylphenidate while inpatient. 7. Hypertension ? Blood pressure has been low normal in the 100s to 110 systolic postoperatively. Continue home Lasix. Continue to hold home amlodipine, valsartan and spironolactone for now. If patient is medically ready for discharge later today, would recommend the patient monitor her BP at home and tentatively plan to restart these medications on or Monday. 8. GERD ? Continue home PPI. Total clinical time spent by myself addressing the patient's medical issues, reviewing all the data, and collaborating with patient's care team: 37 minutes. Charges/Coding Visit Charges Inpatient E&M: 63831 Subs Hosp L2
--- NOTE | 2025-06-24 15:24 | PCM.DC ---
Discharge Instructions DC O2, CPAP, BIPAP needs Home O2 Discharge instructions: No Follow Up Care Test Results: Test results from this visit will be discussed in further detail at your follow-up appointment, if applicable. Discharge Plan Admission Admit Date/Time: 06/23/25 12:14 Attending Provider: Terrell Chow Primary Care Provider: Kvng Orellana [facility] Consulting Providers: Moon Pyle; Lukasz Beltre Instructions Patient Instructions: Lumbar Fusion Dc Additional Instructions / Restrictions: Keep Tegaderm and gauze clean and dry. If Tegaderm is intact, okay to shower. After 5 days remove Tegaderm and gauze and cover with a Band-Aid. Replace Band-Aid daily thereafter. No bending lifting or twisting. Follow-up in clinic in 2 weeks. Discharge Orders/Prescriptions Prescriptions: New hydrocodone-acetaminophen 5-325 mg Tablet 1 tab PO Q6H PRN (Reason: pain) 7 Days Qty: 28 0RF meloxicam 15 mg Tablet 15 mg PO DAILY Qty: 30 0RF Rx Instructions: Take once a day methocarbamol 500 mg Tablet 750 mg PO TID PRN (Reason: Pain/spasms) Qty: 60 0RF sennosides-docusate sodium [Stimulant Laxative Plus] 8.6-50 mg Tablet 2 tab PO BID PRN (Reason: constipation) Qty: 14 0RF acetaminophen 500 mg capsule 500 mg PO Q6H Qty: 30 0RF Continued (DME) blood pressure monitor [Blood Pressure Kit] Kit See Rx Instructions .ROUTE .MEDSUPPLY Qty: 1 0RF Rx Instructions: Check blood pressure daily for hypertension I10 albuterol sulfate [ProAir HFA] 90 mcg/actuation HFA aerosol inhaler 2 puff INHALATION Q6H PRN (Reason: shortness of breath or wheezing) Qty: 8.5 3RF (DME) Handicap Placard See Rx Instructions .ROUTE .MEDSUPPLY Qty: 1 0RF Rx Instructions: As directed, length of time 3 years leflunomide 20 mg tablet 20 mg PO QDAY Rx Instructions: Takes 1 tabs daily aspirin 81 mg tablet 81 mg PO QDAY Patient Comments: STOP PER DR. MEREDITH ([facility] [place]) 3 mL syringe with 1 inch 25-gauge needle See Rx Instructions .Route .MEDSUPPLY Qty: 6 0RF Rx Instructions: As directed pregabalin 150 mg capsule 150 mg PO TID Calcium 600 with Vitamin D3 600 mg-10 mcg (400 unit) tablet,chewable 1 tab PO QDAY propranolol 20 mg tablet 20 mg PO BID Qty: 60 5RF acyclovir 400 mg tablet 400 mg PO MOWEFR Patient Comments: MWF alendronate 70 mg tablet 70 mg PO QWEEK methylphenidate HCl 30 mg capsule,ER biphasic 50-50 30 mg PO BID valsartan 320 mg tablet 320 mg PO DAILY Rexulti 0.5 mg tablet 0.5 mg PO QHS linaclotide 72 mcg capsule 72 mcg PO MOWEFR [place]vel[place] 45-105 mg tablet, IR and ER, biphasic 1 tab PO DAILY furosemide 40 mg tablet 40 mg PO DAILY pravastatin 40 mg tablet 40 mg PO MOWEFR spironolactone [Aldactone] 25 mg tablet 25 mg PO DAILY ergocalciferol (vitamin D2) [Vitamin D2] 1,250 mcg (50,000 unit) capsule 1,250 mcg PO QMONTH omeprazole 40 mg capsule,delayed release(DR/EC) 40 mg PO DAILY Qty: 90 3RF amlodipine 10 mg tablet 10 mg PO DAILY Qty: 90 3RF budesonide-formoterol [Symbicort] 160-4.5 mcg/actuation HFA aerosol inhaler 2 inh inhalation BID Qty: 10.2 11RF Rx Instructions: administer with spacer, rinse mouth after each use albuterol sulfate 2.5 mg /3 mL (0.083 %) solution for nebulization 2.5 mg inhalation Q4H PRN (Reason: Sob &/Or Wheezing) Qty: 180 11RF Discontinued tizanidine 4 mg tablet 4 mg PO QHS Referrals / Follow Up: Kvng Orellana Uma, TOLL SERVICE OBSERVER-C [Primary Care Provider, Family Practice] Disposition Disposition (needs filled in before D/C Order can be placed): Home, Self Care
[2025-06-24 15:28] VITALS: BP 128/68; PULSE 68; RESP 16; TEMP 36.6; O2SAT 99
--- NOTE | 2025-06-24 15:52 | PHA.DC_ITS ---
Pharmacy [facility] Counseling Pharmacy Service has performed discharge medication reconciliation and counseling for this patient. 1. ACETAMINOPHEN 500MG PO Q6 2. NORCO 5/325MG PO Q6H PRN PAIN 3. MELOXICAM 15MG PO DAILY 4. METHOCARBAMOL 750MG PO TID PRN MUSCLE PAIN/SPASMS 5. SENNA/DOCUSATE 2T PO BID PRN CONSTIPATION 6. STOP TIZANIDINE The patient's discharge medication list was reviewed for discrepancies and discrepancies were resolved. The patient was counseled on the following discharge medications and changes in medications for homegoing were reviewed. The Reason for Use, instructions for use, and potential side effects were reviewed for all new medications. The patient's questions regarding all of their medications were answered. The patient was able to verbally demonstrate an understanding of their discharge medications. Medications at Discharge Home Medications blood pressure monitor (Blood Pressure Kit) #1 ea 09/30/20 omeprazole 40 mg capsule,delayed release 40 mg PO DAILY GERD #90 caps 12/15/22 albuterol sulfate 90 mcg/actuation aerosol inhaler (ProAir HFA) 2 puff inhalation Q6H PRN shortness of breath or wheezing #8.5 grams 02/23/23 Handicap Placard #1 ea 07/26/23 amlodipine 10 mg tablet 10 mg PO DAILY BP #90 tabs 09/13/23 3 mL syringe with 1 inch 25-gauge needle #6 ea 10/24/24 acyclovir 400 mg tablet 400 mg PO MOWEFR HPV 11/12/24 alendronate 70 mg tablet 70 mg PO QWEEK [facility] 11/12/24 methylphenidate HCl 30 mg biphasic 50-50 capsule,extended release 30 mg PO BID ADHD 11/12/24 Symbicort 160 mcg-4.5 mcg/actuation HFA aerosol inhaler (budesonide-formoterol) 2 inh inhalation BID ASTHMA #10.2 grams 12/18/24 pregabalin 150 mg capsule 150 mg PO TID RA 12/19/24 valsartan 320 mg tablet 320 mg PO DAILY BP 12/29/24 aspirin 81 mg tablet 81 mg PO QDAY BLOOD THINNER 02/10/25 leflunomide 20 mg tablet 20 mg PO QDAY RA 02/10/25 albuterol sulfate 2.5 mg/3 mL (0.083 %) solution for nebulization 2.5 mg (3 mL) inhalation Q4H PRN Sob &/Or Wheezing #180 mL 02/26/25 brexpiprazole 0.5 mg tablet (Rexulti) 0.5 mg PO QHS ANTIDEPRESSANT 03/04/25 linaclotide 72 mcg capsule 72 mcg PO MOWEFR CONSTIPATION 03/04/25 dextromethorphan IR 45 mg-bupropion ER 105 mg biphasic tablet (Auvelity) 1 tab PO DAILY ANTIDEPRESSANT 06/09/25 ergocalciferol (vitamin D2) 1,250 mcg (50,000 unit) capsule (Vitamin D2) 1,250 mcg PO QMONTH SUPPLEMENT 06/09/25 furosemide 40 mg tablet 40 mg PO DAILY DIUERTIC 06/09/25 pravastatin 40 mg tablet 40 mg PO MOWEFR CHOLESTEROL 06/09/25 spironolactone 25 mg tablet (Aldactone) 25 mg PO DAILY BP 06/09/25 calcium 600 mg (as carbonate)-vit D3 10 mcg (400 unit) chewable tablet (Calcium 600 with Vitamin D3) 1 tab PO QDAY 06/12/25 propranolol 20 mg tablet 20 mg PO BID TREMORS #60 tabs 06/12/25 acetaminophen 500 mg capsule 500 mg PO Q6H #30 caps 06/24/25 hydrocodone-acetaminophen 5-325mg 5mg-325mg 1 tab PO Q6H PRN pain 7 days #28 tabs 06/24/25 meloxicam 15 mg tablet 15 mg PO DAILY #30 tabs 06/24/25 methocarbamol 500 mg tablet 750 mg (1.5 x 500 mg) PO TID PRN Pain/spasms #60 tabs 06/24/25 sennosides 8.6 mg-docusate sodium 50 mg tablet (Stimulant Laxative Plus) 2 tab PO BID PRN constipation #14 tabs 06/24/25
== END 2025-06-24 17:57 | disposition home or self-care (01) | DRG 428 ==
LOC: ACINP 16:50 → MS3 16:50
PROVIDERS: Student in an Organized Health Care Education/Training Program; Admitting Provider Orthopaedic Surgery Orthopaedic Surgery of the Spine; PCP Nurse Practitioner Family; Referring Provider Orthopaedic Surgery Orthopaedic Surgery of the Spine; Visit Provider Orthopaedic Surgery Orthopaedic Surgery of the Spine
PROC: 0SG10A0 Fusion of 2 or more Lumbar Vertebral Joints with Interbody Fusion Device, Anterior Approach, Anterior Column, Open Approach (ICD-10-PCS; principal; 2025-06-23 07:00)
DX: M48.062 Spinal stenosis, lumbar region with neurogenic claudication (principal); E78.00 Pure hypercholesterolemia, unspecified; M05.9 Rheumatoid arthritis with rheumatoid factor, unspecified; I10 Essential (primary) hypertension; F32.A Depression, unspecified; M43.16 Spondylolisthesis, lumbar region; K21.9 Gastro-esophageal reflux disease without esophagitis; F41.9 Anxiety disorder, unspecified; R25.1 Tremor, unspecified; F17.290 Nicotine dependence, other tobacco product, uncomplicated; Z79.899 Other long term (current) drug therapy; Z82.49 Family history of ischemic heart disease and other diseases of the circulatory system; F90.9 Attention-deficit hyperactivity disorder, unspecified type; Z90.710 Acquired absence of both cervix and uterus; Z96.82 Presence of neurostimulator
CPT/HCPCS: 36415; 72100; 72110; 76000; 80048; 82962; 85025; 94640; 94668; 97162; 97166; 97530; C1713; J2405; J3475

== ENCOUNTER 2025-06-27 17:48 | Emergency (ER) | payer MEDICARE, MEDICAID, SELFPAY ==
[2025-06-27 17:49] VITALS: BP 168/80; PULSE 79; RESP 16; TEMP 37.1; O2SAT 99; BMI 30.1
[2025-06-27 18:08] VITALS: BP 131/77; PULSE 59; RESP 17; O2SAT 100
--- NOTE | 2025-06-27 18:18 | EX.ED.DYSGE1 ---
HPI History of Present Illness Chief Complaint: Lower Extremity Injury Narrative Narrative: Patient is a 70-year-old female with past medical history of COPD, hypertension, lumbar radiculopathy status post surgery on her back Monday by Dr. Herring who presents to the emergency department the chief complaint of left lower extremity pain and swelling. She states that ever since surgery she has noted swelling in her left lower extremity and feels like this is getting worse prompting her to come here for further evaluation management. Patient denies any history of blood clots and states that she is not on any blood thinning medications currently. States that she is doing well otherwise from her surgery. [facility] Medical History History of trigger finger History of Holter monitoring Impingement of right shoulder Primary osteoarthritis, right shoulder Right shoulder pain Vapes nicotine containing substance Osteoarthritis Lumbar radiculopathy Impacted cerumen of both ears Wears glasses High cholesterol Former smoker Hypertension History of echocardiogram History of stress test Cardiology follow-up encounter Vitamin deficiency Chronic constipation Borderline type 2 diabetes mellitus Alcohol use disorder in remission Depression, unspecified ADHD Heat intolerance Osteopenia with high risk of fracture Smoking greater than 40 pack years Tremor Nicotine dependence, cigarettes, uncomplicated Insomnia CARBAJAL (dyspnea on exertion) Shortness of breath Abnormal EKG AA (alcohol abuse) COVID-19 vaccine series completed Essential hypertension Acute low back pain ADD (attention deficit disorder) Back pain Jaw swelling Low back pain due to bilateral sciatica Tobacco use disorder, continuous Encounter for screening for malignant neoplasm of lung in current smoker with 30 pack year history or greater Post-menopausal Eosinophilia Abnormal bruising Hay fever Fatigue Spinal cord stimulator status Overweight GERD (gastroesophageal reflux disease) Rheumatoid arthritis Primary osteoarthritis of left hip Vitamin D deficiency Anxiety and depression Rheumatoid arthritis Neuropathy Hyperlipemia Chronic bronchitis Cataracts, bilateral Asthma History of alcohol abuse Seasonal allergies Unilateral primary osteoarthritis, right hip Spondylosis of 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 myelopathy or radiculopathy Spinal stenosis of lumbosacral region Radiculopathy of lumbosacral region Degeneration, intervertebral disc, lumbosacral Home Medications ?Medication ?Instructions ?Recorded ?Last Taken ?Type blood pressure monitor (Blood #1 ea 09/30/20 Unknown Rx Pressure Kit) omeprazole 40 mg capsule,delayed 40 mg PO DAILY GERD #90 caps 12/15/22 06/23/25 05:00 Rx release albuterol sulfate 90 mcg/actuation 2 puff inhalation Q6H PRN 02/23/23 Unknown Rx aerosol inhaler (ProAir HFA) shortness of breath or wheezing #8.5 grams Handicap Placard #1 ea 07/26/23 Unknown Rx amlodipine 10 mg tablet 10 mg PO DAILY BP #90 tabs 09/13/23 Unknown Rx 3 mL syringe with 1 inch 25-gauge #6 ea 10/24/24 Unknown Rx needle acyclovir 400 mg tablet 400 mg PO MOWEFR HPV 11/12/24 Unknown History alendronate 70 mg tablet 70 mg PO QWEEK BONE HEALTH 11/12/24 06/19/25 History methylphenidate HCl 30 mg biphasic 30 mg PO BID ADHD 11/12/24 Unknown History 50-50 capsule,extended release Symbicort 160 mcg-4.5 2 inh inhalation BID ASTHMA #10.2 12/18/24 06/23/25 Rx mcg/actuation HFA aerosol inhaler grams (budesonide-formoterol) pregabalin 150 mg capsule 150 mg PO TID RA 12/19/24 06/23/25 05:00 History valsartan 320 mg tablet 320 mg PO DAILY BP 12/29/24 Unknown History aspirin 81 mg tablet 81 mg PO QDAY BLOOD THINNER 02/10/25 06/21/25 History leflunomide 20 mg tablet 20 mg PO QDAY RA 02/10/25 Unknown History Held on 06/27/25. Instructions: Ordered albuterol sulfate 2.5 mg/3 mL 2.5 mg (3 mL) inhalation Q4H PRN 02/26/25 Unknown Rx (0.083 %) solution for nebulization Sob &/Or Wheezing #180 mL brexpiprazole 0.5 mg tablet 0.5 mg PO QHS ANTIDEPRESSANT 03/04/25 Unknown History (Rexulti) linaclotide 72 mcg capsule 72 mcg PO MOWEFR CONSTIPATION 03/04/25 Unknown History dextromethorphan IR 45 1 tab PO DAILY ANTIDEPRESSANT 06/09/25 Unknown History mg-bupropion ER 105 mg biphasic tablet (Auvelity) ergocalciferol (vitamin D2) 1,250 1,250 mcg PO QMONTH SUPPLEMENT 06/09/25 Unknown History mcg (50,000 unit) capsule (Vitamin D2) pravastatin 40 mg tablet 40 mg PO MOWEFR CHOLESTEROL 10/06/25 Unknown History spironolactone 25 mg tablet 25 mg PO DAILY BP 06/09/25 Unknown History (Aldactone) calcium 600 mg (as carbonate)-vit 1 tab PO QDAY 06/12/25 Unknown History D3 10 mcg (400 unit) chewable tablet (Calcium 600 with Vitamin D3) propranolol 20 mg tablet 20 mg PO BID TREMORS #60 tabs 06/12/25 06/23/25 05:00 Rx acetaminophen 500 mg capsule 500 mg PO Q6H #30 caps 06/24/25 Unknown Rx meloxicam 15 mg tablet 15 mg PO DAILY #30 tabs 06/24/25 Unknown Rx methocarbamol 500 mg tablet 750 mg (1.5 x 500 mg) PO TID PRN 06/24/25 Unknown Rx Pain/spasms #60 tabs sennosides 8.6 mg-docusate sodium 2 tab PO BID PRN constipation #14 06/24/25 Unknown Rx 50 mg tablet (Stimulant Laxative tabs Plus) tramadol 50 mg tablet 50 mg PO TID PRN pain #20 tabs 06/27/25 Unknown Rx Allergy/AdvReac Type Severity Reaction Status Date / Time Penicillins Allergy Mild Hives Verified 06/27/25 17:50 adhesive tape AdvReac Severe Rash, Verified 06/27/25 17:50 itchy, raw acetaminophen (From Percocet) AdvReac Intermediate insomnia Verified 06/27/25 17:50 oxycodone (From Percocet) AdvReac Intermediate insomnia Verified 06/27/25 17:50 benzonatate (From Tessalon AdvReac Mild Itching Verified 06/27/25 17:50 Perles) Family History Brother CAD (coronary artery disease), Onset Age: 70 CABG Other Alcoholism Arthritis Asthma Heart disease Hyperlipemia Hypertension Surgical History Hx of colonoscopy Hx of colonoscopy Status post left foot surgery Hx of shoulder surgery History of hysterectomy History of foot surgery History of back surgery Status post trigger finger release History of carpal tunnel surgery History of rotator cuff surgery Social History Smoking Status: Former smoker Tobacco: How many years used: 40 Electronic Cigarette Use: with nicotine second hand exposure: Yes quit status: considering quitting alcohol intake: former substance use type: does not use what type of physical activity do you participate in: walking ROS ROS ED ROS Narrative Constitutional: Denies any fevers or chills Cardiovascular: Denies chest pain Respiratory: Denies shortness of breath Neurological: Denies any new numbness, weakness, tingling Musculoskeletal: Complains of left lower extremity swelling as noted above states that she has back discomfort but it is from her surgery this is not worsening Skin: Denies any rashes or lesions EXAM Physical Exam Narrative Exam Narrative: General: Patient is lying in bed rest comfortably did not appear to be in acute distress Head: Atraumatic, normocephalic Eyes: PERRL bilaterally, EOMI bilaterally, no conjunctival injection noted Neck: Soft, supple, trachea midline Cardiovascular: Patient bradycardic with a regular rhythm Musculoskeletal: Left lower extremity is more swollen than the right compartments are soft and compressible Extremities: DP pulses +2/4 in the left lower extremity, +4/5 strength noted in the bilateral lower extremities Neurological: Patient follow commands knew that she was at [facility] year is 2024 states that she has decree sensation in the left lower extremity when compared to the right however this is not new this is a chronic issue for her Skin: Warm, dry, intact no rashes or lesions noted Const Vital Signs: 06/27/25 17:49 06/27/25 18:08 Temperature 98.7 F Temperature Source Oral Pulse Rate 79 59 L Respiratory Rate 16 17 Blood Pressure 168/80 H 131/77 H Blood Pressure Mean 109 95 Pulse Ox 99 100 Oxygen Delivery Method Room Air Room Air MDM MDM MDM Narrative Medical decision making narrative: Patient is a 70-year-old female who presents to the emergency department with a chief complaint of left lower extremity swelling. On the differential diagnose includes but not limited to DVT, superficial venous thrombosis, venous insufficiency. Once workup is obtained reviewed she will be reevaluated. Patient duplex is negative for any evidence of DVT or superficial venous thrombosis. Discussed the results with the patient and family member at bedside. They are advised to follow-up with her primary care physician and placed in a compression stocking on that side to help drain the fluid out of her leg. They are vies return with worsening symptoms or concerns. They are agreeable all question concerns answered she was discharged home in stable condition Discharge Plan Triage Chief Complaint: Lower Extremity Injury ED Provider: Zander Bravo Dx/Rx/DC Orders Clinical Impression: Left leg swelling, Neuropathy, Essential hypertension Prescriptions: No Action (DME) blood pressure monitor [Blood Pressure Kit] Kit See Rx Instructions .ROUTE .MEDSUPPLY Qty: 1 0RF Rx Instructions: Check blood pressure daily for hypertension I10 albuterol sulfate [ProAir HFA] 90 mcg/actuation HFA aerosol inhaler 2 puff INHALATION Q6H PRN (Reason: shortness of breath or wheezing) Qty: 8.5 3RF (DME) Handicap Placard See Rx Instructions .ROUTE .MEDSUPPLY Qty: 1 0RF Rx Instructions: As directed, length of time 3 years leflunomide 20 mg tablet 20 mg PO QDAY Rx Instructions: Takes 1 tabs daily aspirin 81 mg tablet 81 mg PO QDAY Patient Comments: ST[place]ED[place] [place] mL syringe with 1 inch 25-gauge needle See Rx Instructions .Route .MEDSUPPLY Qty: 6 0RF Rx Instructions: As directed pregabalin 150 mg capsule 150 mg PO TID Calcium 600 with Vitamin D3 600 mg-10 mcg (400 unit) tablet,chewable 1 tab PO QDAY propranolol 20 mg tablet 20 mg PO BID Qty: 60 5RF acyclovir 400 mg tablet 400 mg PO MOWEFR Patient Comments: MWF alendronate 70 mg tablet 70 mg PO QWEEK methylphenidate HCl 30 mg capsule,ER biphasic 50-50 30 mg PO BID valsartan 320 mg tablet 320 mg PO DAILY Rexulti 0.5 mg tablet 0.5 mg PO QHS linaclotide 72 mcg capsule 72 mcg PO MOWEFR Auvelity 45-105 mg tablet, IR and ER, biphasic 1 tab PO DAILY pravastatin 40 mg tablet 40 mg PO MOWEFR spironolactone [Aldactone] 25 mg tablet 25 mg PO DAILY ergocalciferol (vitamin D2) [Vitamin D2] 1,250 mcg (50,000 unit) capsule 1,250 mcg PO QMONTH meloxicam 15 mg Tablet 15 mg PO DAILY Qty: 30 0RF Rx Instructions: Take once a day methocarbamol 500 mg Tablet 750 mg PO TID PRN (Reason: Pain/spasms) Qty: 60 0RF sennosides-docusate sodium [Stimulant Laxative Plus] 8.6-50 mg Tablet 2 tab PO BID PRN (Reason: constipation) Qty: 14 0RF acetaminophen 500 mg capsule 500 mg PO Q6H Qty: 30 0RF omeprazole 40 mg capsule,delayed release(DR/EC) 40 mg PO DAILY Qty: 90 3RF amlodipine 10 mg tablet 10 mg PO DAILY Qty: 90 3RF budesonide-formoterol [Symbicort] 160-4.5 mcg/actuation HFA aerosol inhaler 2 inh inhalation BID Qty: 10.2 11RF Rx Instructions: administer with spacer, rinse mouth after each use albuterol sulfate 2.5 mg /3 mL (0.083 %) solution for nebulization 2.5 mg inhalation Q4H PRN (Reason: Sob &/Or Wheezing) Qty: 180 11RF tramadol 50 mg tablet 50 mg PO TID PRN (Reason: pain) Qty: 20 0RF Primary Care Provider: Kvng Orellana Referrals: Kvng Orellana, [facility] [Primary Care Provider, Family Practice] Activity Restrictions/Additional Instructions: Your ultrasound did not show any evidence of blood clots in your leg. Wear compression stocking as we discussed here. Follow-up your doctor in the outpatient setting and return with worsening symptoms or other concerns. Print Language: Greek Disposition Disposition: Home, Self Care
--- NOTE | 2025-06-27 18:21 | US_ITS ---
PROCEDURE: VENOUS DUPLEX IMAG/LIMITED/UNI 06/27/2025 REASON FOR EXAM: Left lower extremity swelling TECHNIQUE: Procedure Code: USVDUL Modality: US Procedure: VENOUS DUPLEX IMAG/LIMITED/left COMPARISON: None FINDINGS: There is no intraluminal echogenicity to suggest the presence of a deep venous thrombosis. Appropriate respiratory variation, augmentation and venous compression is noted. US/Venous Duplex Imag/Limited/Uni IMPRESSION: No acute occlusive deep vein thrombosis within the left lower extremity.. Reading Location: [id number]
--- OUTSIDE RECORDS SUMMARY | 2025-06-27 18:24 | XMS RPT_ITS | CCD ---
Author Organization [facility] Care Team Providers Care Sql Server Dba Name Role Phone Dr. Yady Vera Primary Care Provider [phone] Dr. Yady Vera Referring Provider [phone] Hudson AMBULATORY CARE COORDINATOR, AMBULATORY CARE COORDINATOR-C Lashell Attending Provider Dr. Yady Vera Attending Provider [phone] Dr. Buddy Herrera Attending Provider Dr. Buddy Herrera Referring Provider Dr. Buddy Herrera Other Provider Dr. Yady Vera Primary Care Provider [phone] Dr. Yady Vera Attending Provider [phone] Dr. Yady Vera Referring Provider [phone] Dr. Dre Hinojosa Attending Provider Kaz AMBULATORY CARE COORDINATOR, AMBULATORY CARE COORDINATOR-C Padmini Attending Provider Dr. Yady Vera Primary Care Provider [phone] Dr. Buddy Herrera Attending Provider Dr. Buddy Herrera Referring Provider [phone] Dr. Yady Vera Primary Care Provider [phone] Dr. Yady Vera Attending Provider [phone] Dr. Yady Vera Referring Provider [phone] Dr. Yady Vera Primary Care Provider [phone] Chuy, Dr. Conteh Attending Provider [phone] Dr. Yady Vera Referring Provider [phone] DR SAPNA ASHLEY MD Primary Care Physician DION MCADAMS., DR. ALEJO Primary Care Unavailabl e ERICK BELL DO Attending Unavailable Yady Vera MD Primary Care Provider [phone] Yady Vera MD Primary Care Provider [phone] Roberts MUSIC THERAPY SPECIALIST, Se Primary Care Provider DAVID, WINNIE Referring Unavailable ROBERTS, SE Primary Care Unavailable DAVID, WINNIE Attending Unavailable BORDNER, DARON Referring Unavailable ROBERTS, SE Primary Care Unavailable DAVID, WINNIE Referring Unavailable ROBERTS, SE Primary Care Unavailable DAVIDTONYWINNIE Attending Unavailable BORDNER, DARON Referring Unavailable ROBERTS, SE Primary Care Unavailable DAVID, WINNIE Referring Unavailable ROBERTS, SE Primary Care Unavailable DAVID, WINNIE Attending Unavailable BORDNER, DARON Referring Unavailable OLEKARY SUTTONEWONGBE B Primary Care Unavailable ROBERTS, SE Primary Care Unavailable JOSEFA SERNA Attending Unavailable Roberts, Se Attending Unavailable Roberts, Se Primary Care Unavailable Beam, Zebulun Attending Unavailable Roberts, Se Primary Care Unavailable Roberts, Se Primary Care Unavailable Kaz AMBULATORY CARE COORDINATOR, Padmini Attending Unavailable Padmini Mccurdy NP Referring Unavailable Roberts, Se Primary Care Unavailable Brandon Medina Referring Unavailable Brandon Medina Attending Unavailable Rachel Hidalgo Attending Unavailable Rachel Hidalgo Referring Unavailable Roberts, Se Primary Care Unavailable Roberts, Se Primary Care Unavailable Borruso, Dre Referring Unavailable Borruso Dre Consulting Unavailable Borruso Dre Attending Unavailable Roberts, Se Primary Care Unavailable Beam, Zebulun Referring Unavailable Homa Mijares Attending Unavailable Roberts, Se Primary Care Unavailable Hudson AMBULATORY CARE COORDINATOR, Lashell Attending Unavailable Roberts, Se Primary Care Unavailable Beam, Zebulun Z Referring Unavailable Jerald Morales Attending Unavailable Jigna Haji Referring Unavailable Jigna Haji Attending Unavailable Roberts, Se Primary Care Unavailable Roberts, Se Primary Care Unavailable Beam, Zebulun Attending Unavailable Roberts, Se Primary Care Unavailable Efra, Jayaprakas Referring Unavailable Efra, Jayaprakas Attending Unavailable Roberts, Se Primary Care Unavailable KRIWINSKY Referring Unavailable KRIWINSKY Attending Unavailable Roberts, Se Primary Care Unavailable Adithya, Jigna Referring Unavailable Adithya, Jigna Attending Unavailable David, [place] Attending Unavailable David, [place] Referring Unavailable Roberts, Se Primary Care Unavailable Roberts, Se Primary Care Unavailable David, [place] Attending Unavailable David, Krystian Referring Unavailable Roberts, Se Primary Care Unavailable Roberts, Se Attending Unavailable Roberts, Se Primary Care Unavailable Mccurdy AMBULATORY CARE COORDINATOR, Padmini Attending Unavailable Mccurdy AMBULATORY CARE COORDINATOR, Padmini Referring Unavailable Beam, Zebulun Referring Unavailable Beam, Zebulun Attending Unavailable Roberts, Se Primary Care Unavailable Beam, Zebulun Referring Unavailable Beam, Zebulun Attending Unavailable Roberts, Se Primary Care Unavailable Kelechi Reyes Attending Unavailable Roberts, Se Primary Care Unavailable Baddour, Kelechi Referring Unavailable Roberts, Se Primary Care Unavailable Mccurdy AMBULATORY CARE COORDINATOR, Padmini Attending Unavailable Mccurdy AMBULATORY CARE COORDINATOR, Padmini Referring Unavailable Roberts, Se Primary Care Unavailable Chow, Terrell Attending Unavailable Chow, Terrell Referring Unavailable Roberts, Se Primary Care Unavailable David, [place] Attending Unavailable Roberts, Se Primary Care Unavailable Roberts, Se Referring Unavailable Brandon Narayan Attending Unavailable Roberts, Se Primary Care Unavailable David, [place] Attending Unavailable Roberts, Se Primary Care Unavailable David, Krystian Attending Unavailable Roberts, Se Primary Care Unavailable Baddotracy, Kelechi Referring Unavailable Ronni Reyesmond Attending Unavailable Roberts, Se Primary Care Unavailable Mccurdy AMBULATORY CARE COORDINATOR, Padmini Referring Unavailable Mccurdy AMBULATORY CARE COORDINATOR, Padmini Consulting Unavailable Buddy Herrera Attending Unavailable Buddy Herrera Attending Unavailable Roberts, Se Primary Care Unavailable Hudson AMBULATORY CARE COORDINATOR, Lashell Attending Unavailable Rachel Hidalgo Attending Unavailable Roberts, Se Primary Care Unavailable Roberts, Se Referring Unavailable Roberts, Se Primary Care Unavailable David, Krystian Attending Unavailable Roberts, Se Primary Care Unavailable Adithya, Jigna Attending Unavailable Roberts, Se Referring Unavailable Roberts, Se Primary Care Unavailable Adithya, Jigna Attending Unavailable Roberts, Se Referring Unavailable Roberts, Se Primary Care Unavailable Bhupendradotracy, Kelechi Attending Unavailable Baddour, Kelechi Referring Unavailable Roberts, Se Primary Care Unavailable Kaz CALVILLO, Padmini Attending Unavailable Roberts, Se Referring Unavailable Roberts, Se Referring Unavailable Chow, Terrell Attending Unavailable Roberts, Se Primary Care Unavailable Roberts, Se Primary Care Unavailable Roberts, Se Referring Unavailable Borruso, Dre Attending Unavailable Roberts, Se Primary Care Unavailable Baddour, Kelechi Referring Unavailable Baddour, Kelechi Attending Unavailable Roberts, Se Primary Care Unavailable Roberts, Se Referring Unavailable Baddour, Kelechi Attending Unavailable Roberts, Se Primary Care Unavailable Baddour, Kelechi Referring Unavailable Baddour, Kelechi Attending Unavailable Roberts, Se Primary Care Unavailable Pyle, Moon Consulting Unavailable Mostlinnette, Lukasz Attending Unavailable Chow, Terrell Referring Unavailable Chow, Terrell Admitting Unavailable Mosteller, Lukasz Consulting Unavailable Chow, Terrell Consulting Unavailable Jigna Haji Attending Unavailable Pyle, Moon Attending Unavailable Roberts, Se Primary Care Unavailable Chow, Terrell Referring Unavailable Chow, Terrell Admitting Unavailable Chow, Terrell Consulting Unavailable Chow, Terrell Attending Unavailable Roberts, Se Primary Care Unavailable David, [place] Consulting Unavailable David, Krystian Attending Unavailable David, Krystian Referring Unavailable Kancherla, Noel Consulting Unavailable Chow, Terrell Referring Unavailable Chow, Terrell Admitting Unavailable Chow, Terrell Attending Unavailable Roberts, Se Primary Care Unavailable Pyle, Moon Consulting Unavailable Chow, Terrell Referring Unavailable Chow, Terrell Admitting Unavailable Chow, Terrell Attending Unavailable Mosteller, Lukasz Consulting Unavailable Roberts, Se Primary Care Unavailable Karmaso, Dre Referring Unavailable Sushma, Dre Attending Unavailable Roberts, Se Primary Care Unavailable Roberts, Se Consulting Unavailable Ric Walton Referring Unavailable Ric Walton Attending Unavailable Roberts, Se Primary Care Unavailable Rachel Hidalgo Attending Unavailable Roberts, Se Referring Unavailable Baddour, Kelechi Attending Unavailable Roberts, Se Primary Care Unavailable Roberts, Se Referring Unavailable Rachel Hidalgo Attending Unavailable Roberts, Se Referring Unavailable Roberts, Se Primary Care Unavailable Roberts, Se Primary Care Unavailable Baddour, Kelechi Attending Unavailable Baddour, Kelechi Referring Unavailable Roberts, Se Referring Unavailable Roberts, Se Primary Care Unavailable Chow, Terrell Attending Unavailable Roberts, Se Referring Unavailable Roebrts, Se Primary Care Unavailable Chow, Terrell Attending Unavailable Roberts, Se Primary Care Unavailable Roberts, Se Referring Unavailable Baddour, Kelechi Attending Unavailable Roberts, Se Primary Care Unavailable Alejandra, Se Referring Unavailable Kaz AMBULATORY CARE COORDINATOR, Padmini Attending Unavailable Roberts, Se Primary Care Unavailable Kaz AMBULATORY CARE COORDINATOR, Padmini Referring Unavailable Kaz AMBULATORY CARE COORDINATOR, Padmini Attending Unavailable Dre Ordaz Attending Unavailable Roberts, Se Referring Unavailable Roberts, Se Primary Care Unavailable Roberts, Se Primary Care Unavailable Kaz AMBULATORY CARE COORDINATOR, Padmini Consulting Unavailable Brandon Narayan Referring Unavailable Brandon Narayan Attending Unavailable Roberts, Se Primary Care Unavailable Estephania Reagan Attending Unavailable Allergies Allergy Classification Reported Allergen(s) Allergy Type Date of Onset Reaction(s) Facility (8 sources) Acetaminophen Drug Allergy 11-27-19 22 insomnia [facility] Work Phone: (20 sources) benzonatate; Translations: [benzonatate] Drug Allergy 05-03-20 19 Rash [facility] (20 sources) oxyCODONE; Translations: [OXYCODONE] Drug Allergy 11-04-19 22 Other: See Comments [facility] Work Phone: (20 sources) Penicillins; Translations: [PENICILLINS] Allergy to substance [facility]-01-[facility] [address] [facility] (6 sources) Adhesive Tape; Translations: [adhesive tape] Propensity to adverse reactions 01-27-20 22 Rash, itchy, raw [facility] (1 source) Penicillin; Translations: [penicillins] Drug Allergy [facility] (11 sources) Latex; Translations: [LATEX] Drug Intolerance 11-09-[address] [facility] Work Phone: (1 source) Acetaminophen Drug Allergy 06-23-20 25 [facility] (1 source) benzonatate Drug Allergy 06-23-20 25 [facility] (1 source) oxyCODONE Drug Allergy 06-23-20 25 [facility] Medications Current Medications Medication Drug Class(es) [...] above: Take 400 mg by mouth . [id number] 200 actuat albuterol 0.09 mg/actuat metered dose [...] (Blood Pressure Kit) kit (8 sources) Start: 01-27-202 1 Blood Pressure Monitor (Blood Pressure Kit) kit [...] INHALATION Q12H 10.2 90 August 24, 2021 12:49pm September 28, 2021 [...] Comment on above: Take [address] [facility] once daily. Administer on an empty stomach. [...] Active Start: 09-20-2024 take [address] [facility] once daily in the morning methylphenidate CD (METADATE CD) 60 mg biphasic capsule Take 60 mg by mouth every morning. 09/20/2024 Active MIEBO, PF, 100 % drop (6 sources) Start: [...] 1 tablet by gilberto [facility] once daily multivitamin,[id number] Active 1 T ABLET PO DAILY April 20, 2020 11:00pm Start: 04-21-2020 take 1 tablet by gilberto th once daily multivitamin,pz-iadm-[id number] Active 1 T ABLET PO DAILY April [...] tablet by mouth once Varenicline (Chantix Starting Box) 0.5 mg (11)- 1 mg (42) tablets,dose pack Active 0 PO per package directions July 15, 2022 9:23am PO PER PKG DIR Start: 06-24-2022 End: 07-15-2022 take 1 tablet by mouth once Varenicline (Chantix Start ) 0.5 mg (11)- 1 mg (42) tablets,dose [...] Comment on above: Take [address] [facility] once daily. 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, [address] Calcium [Mass/Vol] 8.6 mg/dL Normal 7.6-11.0 [facility] Comment on above: Performed By: #### L 500.2500, L100.0100 ####[facility] [address] [place], [address] Chloride [Moles/Vol] 107 mmol/L Normal 98-108 [facility] Comment on above: Performed By: #### L 500.2500, L100.0100 ####[facility] [address] [place], [address] CO2 [Moles/Vol] 24.5 mmol/L Normal 21.0-32.0 [facility] Comment on above: Performed By: #### L 500.2500, L100.0100 ####[facility] [address] [place], [address] Creatinine [Mass/Vol] 0.92 mg/dL Normal 0.70-1.20 [facility] Comment on above: Performed By: #### L 500.2500, L100.0100 ####[facility] [address] [place], [address] ECRCL 46.84 ml/min Low 50-250 [facility] Comment on above: Performed By: #### L 500.2500, L100.0100 ####[facility] [address] [place], [address] GAP 9 Normal 5-15 [facility] Comment on above: Performed By: #### L 500.2500, L100.0100 ####[facility] [address] [place], [address] GFR/1.73 sq M.predicted among non-blacks MDRD (S/P/Bld) [Vol rate/Area] 67 mL/min/{1.73_m2} Normal >60 [facility] Comment on above: Result Comment: mL/m in/1.73m2 CKD-EPI Creatinine Equation (2020) Performed By: #### L 500.2500, L100.0100 ####[facility] [address] [place], [address] Glucose [Mass/Vol] 123 mg/dL High 70-99 [facility] Comment on above: Performed By: #### L 500.2500, L100.0100 ####[facility] [address] [place], [address] Potassium [Moles/Vol] 4.3 mmol/L Normal 3.3-5.1 [facility] Comment on above: Performed By: #### L 500.2500, L100.0100 ####[facility] [address] [place], [address] Sodium [Moles/Vol] 140 mmol/L Normal 133-145 [facility] Comment on above: Performed By: #### L 500.2500, L100.0100 ####[facility] [address] [place], [address] Urea nitrogen [Mass/Vol] 17 mg/dL Normal 4-19 [facility] Comment on above: Performed By: #### L 500.2500, L100.0100 ####[facility] [address] [place], [address] CBC W/Diff, Automatedon 10-2 -2024 Absolute Lymph 1.27 X10 3/uL Normal 0.83-4.51 [facility] Comment on above: Performed By: #### L 500.2500, L100.0100 ####[facility] [address] [place], [address] Absolute Neut 5.6 X10 3/uL Normal 2.0-7.7 [facility] Comment on above: Performed By: #### L 500.2500, L100.0100 ####[facility] [address] [place], [address] Basophils/100 WBC (Bld) 0.4 % Normal 0-1 [facility] Comment on above: Performed By: #### L 500.2500, L100.0100 ####[facility] [address] [place], [address] Eosinophils/100 WBC (Bld) 16.6 % High 0-5 [facility] Comment on above: Performed By: #### L 500.2500, L100.0100 ####[facility] [address] [place], [address] Erythrocyte distribution width (RBC) [Ratio] 13.9 % Normal 11.6-14.6 [facility] Comment on above: Performed By: #### L 500.2500, L100.0100 ####[facility] [address] [place], [address] Hematocrit (Bld) [Volume fraction] 32.0 % Low 37-47 [facility] Comment on above: Performed By: #### L 500.2500, L100.0100 ####[facility] [address] [place], [address] Hemoglobin (Bld) [Mass/Vol] 10.0 g/dL Low 12.0-15.0 [facility] Comment on above: Performed By: #### L 500.2500, L100.0100 ####[facility] [address] [place], [address] IG% 0.300 Normal 0.0-0.9 [facility] Comment on above: Result Comment: IG% - Immature Granulocytes (promyelocytes, myelocytes andmetamyelocytes) > 1% indicates that a LEFT SHIFT is Present. Performed By: #### L 500.2500, L100.0100 ####[facility] [address] [place], [address] Lymphocytes/100 WBC (Bld) 13.7 % Low 19-41 [facility] Comment on above: Performed By: #### L 500.2500, L100.0100 ####[facility] [address] [place], [address] MCH (RBC) [Entitic mass] 28.2 pg Normal 27.0-32.0 [facility] Comment on above: Performed By: #### L 500.2500, L100.0100 ####[facility] [address] [place], [address] MCHC (RBC) [Mass/Vol] 31.3 g/dL Low 32-36 [facility] Comment on above: Performed By: #### L 500.2500, L100.0100 ####[facility] [address] [place], [address] MCV (RBC) [Entitic vol] 90.4 fL Normal 81-99 [facility] Comment on above: Performed By: #### L 500.2500, L100.0100 ####[facility] [address] [place], [address] Monocytes/100 WBC (Bld) 9.1 % Normal 0-10 [facility] Comment on above: Performed By: #### L 500.2500, L100.0100 ####[facility] [address] [place], [address] Neutrophils/100 WBC (Bld) 59.9 % Normal 47-70 [facility] Comment on above: Performed By: #### L 500.2500, L100.0100 ####[facility] [address] [place], [address] Nucleated RBC (Bld) [#/Vol] 0 10*3/uL Normal 0-5 [facility] Comment on above: Performed By: #### L 500.2500, L100.0100 ####[facility] [address] [place], [address] Platelet mean volume (Bld) [Entitic vol] 11.2 fL Normal 6.2-12.0 [facility] Comment on above: Performed By: #### L 500.2500, L100.0100 ####[facility] [address] [place], [address] Platelets (Bld) [#/Vol] 188 10*3/uL Normal 150-450 [facility] Comment on above: Performed By: #### L 500.2500, L100.0100 ####[facility] [address] [place], [address] RBC (Bld) [#/Vol] 3.54 10*6/uL Low 4.2-5.4 [facility] Comment on above: Performed By: #### L 500.2500, L100.0100 ####[facility] [address] [place], [address] RDW SD 45.9 fl High 35.1-43.9 [facility] Comment on above: Performed By: #### L 500.2500, L100.0100 ####[facility] [address] [place], [address] WBC (Bld) [#/Vol] 9.3 10*3/uL Normal 4.4-11.0 [facility] Comment on above: Performed By: #### L 500.2500, L100.0100 ####[facility] [address] [place], [address] Discharge Instructionon 06-05 Discharge Instruction Normal [facility] Lumbar Spine 2 or 3 Viewson 06-24-2025 Lumbar Spine 2 or 3 Views Normal [facility] Bedside Glucoseon 06-23-2025 FINGERSTICK GLU 112 mg/dL High 74-106 [facility] Comment on above: Result Comment: FELIPE MORALES OF PATIENT CARE PER NURSING PROTOCOL Performed By: #### L 501.080 ####[facility] [address] [place], [address] Consultation - Hospitaliston 06-23-2025 Consultation - Hospitalist Normal [facility] L/S Spine Min 4 Viewson 06-05 L/S Spine Min 4 Views Normal [facility] MR/POSTOP.ANEon 06-23-2025 MR/POSTOP.ANE Normal [facility] MR/[id number] 06-23-2025 MR/POSTOPAN2 Normal [facility] Operative Reporton Operative Report Normal [facility] Operative Report Normal [facility] CBC W Auto Differential pane l (Bld)on 06-20-2025 Basophils (Bld) [#/Vol] 0.10 10*3/uL Normal <0.11 [facility] Comment on above: Order Comment: Speci men Type: BLOOD SPECIMEN Ordering Facility: [facility] Address: [address] [place] [address] [place] [address] Performed By: #### 1 988-5 #### [facility] CLIA [id number] [address] [place] [address] [place] Basophils/100 WBC (Bld) 1.5 % Normal [facility] Comment on above: Order Comment: Speci men Type: BLOOD SPECIMEN Ordering Facility: [facility] Address: [address] [place] [address] Performed By: #### 1 988-5 #### [facility] CLIA [id number] [address] [place] [address] [place] Differential cell count method Nom (Bld) Auto Normal [facility] Comment on above: Order Comment: Speci men Type: BLOOD SPECIMEN Ordering Facility: [facility] Address: [address] [place] [address] Performed By: #### 1 988-5 #### [facility] CLIA [id number] [address] [place] [address] [place] Eosinophils (Bld) [#/Vol] 1.32 10*3/uL High <0.46 [facility] Comment on above: Order Comment: Speci men Type: BLOOD SPECIMEN Ordering Facility: [facility] Address: [address] [place] [address] Performed By: #### 1 988-5 #### [facility] CLIA [id number] [address] [place] [address] [place] Eosinophils/100 WBC (Bld) 20.4 % Normal [facility] Comment on above: Order Comment: Speci men Type: BLOOD SPECIMEN Ordering Facility: [facility] Address: [address] [place] [address] Performed By: #### 1 988-5 #### [facility] CLIA [id number] [address] [place] [address] [place] Erythrocyte distribution width (RBC) [Ratio] 13.7 % Normal 11.5-15.0 [facility] Comment on above: Order Comment: Speci men Type: BLOOD SPECIMEN Ordering Facility: [facility] Address: [address] [place] [address] Performed By: #### 1 988-5 #### [facility] CLIA [id number] [address] [place] [address] [place] Hematocrit (Bld) [Volume fraction] 41.0 % Normal 36.0-46.0 [facility] Comment on above: Order Comment: Speci men Type: BLOOD SPECIMEN Ordering Facility: [facility] Address: [address] [place] [address] Performed By: #### 1 988-5 #### [facility] CLIA [id number] [address] [place] [address] [place] Hemoglobin (Bld) [Mass/Vol] 12.9 g/dL Normal 11.5-15.5 [facility] Comment on above: Order Comment: Speci men Type: BLOOD SPECIMEN Ordering Facility: [facility] Address: [address] [place] [address] Performed By: #### 1 988-5 #### [facility] CLIA [id number] [address] [place] [address] [place] MATT Immature granulocytes (Bld) [#/Vol] 10*3/uL Normal <0.10 [facility] Comment on above: Order Comment: Speci men Type: BLOOD SPECIMEN Ordering Facility: [facility] Address: [address] [place] [address] Performed By: #### 1 988-5 #### [facility] CLIA [id number] [address] [place] [address] [place] Immature granulocytes/100 WBC (Bld) 0.2 % Normal [facility] Comment on above: Order Comment: Speci men Type: BLOOD SPECIMEN Ordering Facility: [facility] Address: [address] [place] [address] Performed By: #### 1 988-5 #### [facility] CLIA [id number] [address] [place] [address] [place] Lymphocytes (Bld) [#/Vol] 1.90 10*3/uL Normal 1.00-4.00 [facility] Comment on above: Order Comment: Speci men Type: BLOOD SPECIMEN Ordering Facility: [facility] Address: [address] [place] [address] Performed By: #### 1 988-5 #### [facility] CLIA [id number] [address] [place] [address] [place] Lymphocytes/100 WBC (Bld) 29.3 % Normal [facility] Comment on above: Order Comment: Speci men Type: BLOOD SPECIMEN Ordering Facility: [facility] Address: [address] [place] [address] Performed By: #### 1 988-5 #### [facility] CLIA [id number] [address] [place] [address] [place] MCH (RBC) [Entitic mass] 28.4 pg Normal 26.0-34.0 [facility] Comment on above: Order Comment: Speci men Type: BLOOD SPECIMEN Ordering Facility: [facility] Address: [address] [place] [address] Performed By: #### 1 988-5 #### [facility] CLIA [id number] [address] [place] [address] [place] MCHC (RBC) [Mass/Vol] 31.5 g/dL Normal 30.5-36.0 [facility] Comment on above: Order Comment: Speci men Type: BLOOD SPECIMEN Ordering Facility: [facility] Address: [address] [place] [address] Performed By: #### 1 988-5 #### [facility] CLIA [id number] [address] [place] [address] [place] MCV (RBC) [Entitic vol] 90.1 fL Normal 80.0-100.0 [facility] Comment on above: Order Comment: Speci men Type: BLOOD SPECIMEN Ordering Facility: [facility] Address: [address] [place] [address] Performed By: #### 1 988-5 #### [facility] CLIA [id number] [address] [place] [address] [place] Monocytes (Bld) [#/Vol] 0.53 10*3/uL Normal <0.87 [facility] Comment on above: Order Comment: Speci men Type: BLOOD SPECIMEN Ordering Facility: [facility] Address: [address] [place] [address] Performed By: #### 1 988-5 #### [facility] CLIA [id number] [address] [place] [address] [place] Monocytes/100 WBC (Bld) 8.2 % Normal [facility] Comment on above: Order Comment: Speci men Type: BLOOD SPECIMEN Ordering Facility: [facility] Address: [address] [place] [address] Performed By: #### 1 988-5 #### [facility] CLIA [id number] [address] [place] [address] [place] Neutrophils (Bld) [#/Vol] 2.62 10*3/uL Normal 1.45-7.50 [facility] Comment on above: Order Comment: Speci men Type: BLOOD SPECIMEN Ordering Facility: [facility] Address: [address] [place] [address] Performed By: #### 1 988-5 #### [facility] CLIA [id number] [address] [place] [address] [place] Neutrophils/100 WBC (Bld) 40.4 % Normal [facility] Comment on above: Order Comment: Speci men Type: BLOOD SPECIMEN Ordering Facility: [facility] Address: [address] [place] [address] Performed By: #### 1 988-5 #### [facility] CLIA [id number] [address] [place] [address] [place] Nucleated RBC (Bld) [#/Vol] 10*3/uL Normal <0.01 [facility] Comment on above: Order Comment: Speci men Type: BLOOD SPECIMEN Ordering Facility: [facility] Address: [address] [place] [address] Performed By: #### 1 988-5 #### [facility] CLIA [id number] [address] [place] [address] [place] Nucleated RBC/100 WBC (Bld) [Ratio] 0.0 /100 WBC Normal [facility] Comment on above: Order Comment: Speci men Type: BLOOD SPECIMEN Ordering Facility: [facility] Address: [address] [place] [address] Performed By: #### 1 988-5 #### [facility] CLIA [id number] [address] [place] [address] [place] Platelet mean volume (Bld) [Entitic vol] 11.7 fL Normal 9.0-12.7 [facility] Comment on above: Order Comment: Speci men Type: BLOOD SPECIMEN Ordering Facility: [facility] Address: [address] [place] [address] Performed By: #### 1 988-5 #### [facility] CLIA [id number] [address] [place] [address] [place] Platelets (Bld) [#/Vol] 256 10*3/uL Normal 150-400 [facility] Comment on above: Order Comment: Speci men Type: BLOOD SPECIMEN Ordering Facility: [facility] Address: [address] [place] [address] Performed By: #### 1 988-5 #### [facility] CLIA [id number] [address] [place] [address] [place] RBC (Bld) [#/Vol] 4.55 10*6/uL Normal 3.90-5.20 [facility] Comment on above: Order Comment: Speci men Type: BLOOD SPECIMEN Ordering Facility: [facility] Address: [address] [place] [address] Performed By: #### 1 988-5 #### [facility] CLIA [id number] [address] [place] [address] [place] WBC (Bld) [#/Vol] 6.48 10*3/uL Normal 3.70-11.00 [facility] Comment on above: Order Comment: Speci men Type: BLOOD SPECIMEN Ordering Facility: [facility] Address: [address] [place] [address] Performed By: #### 1 988-5 #### [facility] CLIA [id number] [address] [place] [address] [place] CRP SerPl-mCncon 06-20-2025 CRP [Mass/Vol] mg/L Normal <0.9 [facility] Comment on above: Order Comment: Speci men Type: BLOOD SPECIMEN Ordering Facility: [facility] Address: [address] [place] [address] Performed By: #### 1 988-5 #### [facility] CLIA [id number] [address] [place] [address] [place] Comprehensive metabolic 2000 panelon 06-20-2025 Albumin [Mass/Vol] 4.1 g/dL Normal 3.9-4.9 [facility] Comment on above: Order Comment: Speci men Type: BLOOD SPECIMEN Ordering Facility: [facility] Address: [address] [place] [address] Performed By: #### 1 988-5 #### [facility] CLIA [id number] [address] [place] [address] [place] ALP [Catalytic activity/Vol] 71 U/L Normal 34-123 [facility] Comment on above: Order Comment: Speci men Type: BLOOD SPECIMEN Ordering Facility: [facility] Address: [address] [id number] Performed By: #### 1 988-5 #### [facility] CLIA [id number] [address] [place], [place] [address] [place] ALT [Catalytic activity/Vol] 38 U/L Normal 7-38 [facility] Comment on above: Order Comment: Speci men Type: BLOOD SPECIMEN Ordering Facility: [facility] Address: [address] [place] [address] Performed By: #### 1 988-5 #### [facility] CLIA [id number] [address] [place] [address] [place] Anion gap [Moles/Vol] 13 mmol/L Normal 8-15 [facility] Comment on above: Order Comment: Speci men Type: BLOOD SPECIMEN Ordering Facility: [facility] Address: [address] [place] [address] Performed By: #### 1 988-5 #### [facility] CLIA [id number] [address] [place] [address] [place] AST [Catalytic activity/Vol] 86 U/L High 13-35 [facility] Comment on above: Order Comment: Speci men Type: BLOOD SPECIMEN Ordering Facility: [facility] Address: [address] [place] [address] Performed By: #### 1 988-5 #### [facility] CLIA [id number] [address] [place], [place] [address] [place] Bilirubin [Mass/Vol] 0.3 mg/dL Normal 0.2-1.3 [facility] Comment on above: Order Comment: Speci men Type: BLOOD SPECIMEN Ordering Facility: [facility] Address: [address] [place] [address] Performed By: #### 1 988-5 #### [facility] CLIA [id number] [address] [place] [address] [place] Calcium [Mass/Vol] 9.7 mg/dL Normal 8.5-10.2 [facility] Comment on above: Order Comment: Speci men Type: BLOOD SPECIMEN Ordering Facility: [facility] Address: [address] [place] [address] Performed By: #### 1 988-5 #### [facility] CLIA [id number] [address] [place] [address] [place] Chloride [Moles/Vol] 107 mmol/L Normal 98-107 [facility] Comment on above: Order Comment: Speci men Type: BLOOD SPECIMEN Ordering Facility: [facility] Address: [address] [place] [address] Performed By: #### 1 988-5 #### [facility] CLIA [id number] [address] [place] [address] [place] CO2 [Moles/Vol] 21 mmol/L Low 22-30 [facility] Comment on above: Order Comment: Speci men Type: BLOOD SPECIMEN Ordering Facility: [facility] Address: [address] [place] [address] Performed By: #### 1 988-5 #### [facility] CLIA [id number] [address] [place] [address] [place] Creatinine [Mass/Vol] 0.80 mg/dL Normal 0.58-0.96 [facility] Comment on above: Order Comment: Speci men Type: BLOOD SPECIMEN Ordering Facility: [facility] Address: [address] [place] [address] Performed By: #### 1 988-5 #### [facility] CLIA [id number] [address] [place] [address] [place] eGFRcr SerPlBld CKD-EPI 2020 79 mL/min/1.73m??? Normal >=60 [facility] Comment on above: Order Comment: Speci men Type: BLOOD SPECIMEN Ordering Facility: [facility] Address: [address] [place], [place] [id number] Result Comment: Mariza mated Glomerular Filtration Rate [...] GFR. Performed By: #### 1 988-5 #### [facility] CLIA [id number] [address] [place] [address] [place] Glucose [Mass/Vol] 106 mg/dL High 74-99 [facility] Comment on above: Order Comment: Specdakotah men Type: BLOOD SPECIMEN Ordering Facility: [facility] Address: [address] [place] [address] Result Comment: The [place] [employer] (ADA) provides guidance for cutoff [...] Standards of Medical Care in Diabetes 2016, [place] [employer]. Diabetes Care. 2016.39(Suppl 1). Performed By: #### 1 988-5 #### [facility] CLIA [id number] [address] [place] [address] [place] Potassium [Moles/Vol] 4.2 mmol/L Normal 3.7-5.1 [facility] Comment on above: Order Comment: Pauly magallanes Type: BLOOD SPECIMEN Ordering Facility: [facility] Address: [address] [place] [address] Performed By: #### 1 988-5 #### [facility] CLIA [id number] [address] [place] [address] [place] Protein [Mass/Vol] 6.6 g/dL Normal 6.3-8.0 [facility] Comment on above: Order Comment: Speci men Type: BLOOD SPECIMEN Ordering Facility: [facility] Address: [address] [place] [address] Performed By: #### 1 988-5 #### [facility] CLIA [id number] [address] [place] [address] [place] Sodium [Moles/Vol] 141 mmol/L Normal 136-144 [facility] Comment on above: Order Comment: Speci men Type: BLOOD SPECIMEN Ordering Facility: [facility] Address: [address] [place] [address] Performed By: #### 1 988-5 #### [facility] CLIA [id number] [address] [place] [address] [place] Urea nitrogen [Mass/Vol] 16 mg/dL Normal 7-21 [facility] Comment on above: Order Comment: Speci men Type: BLOOD SPECIMEN Ordering Facility: [facility] Address: [address] [place] [address] Performed By: #### 1 988-5 #### [facility] CLIA [id number] [address] [place] [address] [place] ESR Westergren method (Bld) [Velocity]on 06-20-2025 ESR (Bld) [Velocity] 6 mm/h Normal 0-20 [facility] Comment on above: Order Comment: Speci men Type: BLOOD SPECIMEN Ordering Facility: [facility] Address: [address] [place] [address] Performed By: #### 1 988-5 #### [facility] CLIA [id number] [address] [place] [address] [place] Orthopedic Visit Reporton Orthopedic Visit Report Normal [facility] MRSA/SAID NASAL SCREENon MRSA+SAID SCRN Reason for Exam: Jazmin clarisse MRSA MRSA Negative S. AUREUS S. aureus Negative Normal [facility] Comment on above: Performed By: #### L 500.2500, L501.9985, L100.0100, BTS, M100.651 ####[facility] [address] [place], [address] Basic Metabolic Profile (BMP )on 06-12-2025 BUN/CRE 22.7 RATIO High 10-20 [facility] Comment on above: Performed By: #### L 500.2500, L501.9985, L100.0100, BTS, M100.651 ####[facility] [address] [place], [address] Calcium [Mass/Vol] 9.7 mg/dL Normal 7.6-11.0 [facility] Comment on above: Performed By: #### L 500.2500, L501.9985, L100.0100, BTS, M100.651 ####[facility] [address] [place], [address] Chloride [Moles/Vol] 105 mmol/L Normal 98-108 [facility] Comment on above: Performed By: #### L 500.2500, L501.9985, L100.0100, BTS, M100.651 ####[facility] [address] [place], [address] CO2 [Moles/Vol] 28.4 mmol/L Normal 21.0-32.0 [facility] Comment on above: Performed By: #### L 500.2500, L501.9985, L100.0100, BTS, M100.651 ####[facility] [address] [place], [address] Creatinine [Mass/Vol] 1.01 mg/dL Normal 0.70-1.20 [facility] Comment on above: Performed By: #### L 500.2500, L501.9985, L100.0100, BTS, M100.651 ####[facility] [address] [place], [address] GAP 9 Normal 5-15 [facility] Comment on above: Performed By: #### L 500.2500, L501.9985, L100.0100, BTS, M100.651 ####[facility] [address] [place], [address] GFR/1.73 sq M.predicted among non-blacks MDRD (S/P/Bld) [Vol rate/Area] 60 mL/min/{1.73_m2} Normal >60 [facility] Comment on above: Result Comment: mL/m in/1.73m2 CKD-EPI Creatinine Equation (2020) Performed By: #### L 500.2500, L501.9985, L100.0100, BTS, M100.651 ####[facility] [address] [place], [address] Glucose [Mass/Vol] 102 mg/dL High 70-99 [facility] Comment on above: Performed By: #### L 500.2500, L501.9985, L100.0100, BTS, M100.651 ####[facility] [address] [place], [address] Potassium [Moles/Vol] 4.1 mmol/L Normal 3.3-5.1 [facility] Comment on above: Performed By: #### L 500.2500, L501.9985, L100.0100, BTS, M100.651 ####[facility] [address] [place], [address] Sodium [Moles/Vol] 143 mmol/L Normal 133-145 [facility] Comment on above: Performed By: #### L 500.2500, L501.9985, L100.0100, BTS, M100.651 ####[facility] [address] [place], [address] Urea nitrogen [Mass/Vol] 23 mg/dL High 4-19 [facility] Comment on above: Performed By: #### L 500.2500, L501.9985, L100.0100, BTS, M100.651 ####[facility] [address] [place], [address] CBC W/Diff, Automatedon 10-0 9-2024 Absolute Lymph 1.93 X10 3/uL Normal 0.83-4.51 [facility] Comment on above: Performed By: #### L 500.2500, L501.9985, L100.0100, BTS, M100.651 ####[facility] [address] [place], [address] Absolute Neut 2.2 X10 3/uL Normal 2.0-7.7 [facility] Comment on above: Performed By: #### L 500.2500, L501.9985, L100.0100, BTS, M100.651 ####[facility] [address] [place], [address] Basophils/100 WBC (Bld) 1.5 % High 0-1 [facility] Comment on above: Performed By: #### L 500.2500, L501.9985, L100.0100, BTS, M100.651 ####[facility] [address] [place], [address] Eosinophils/100 WBC (Bld) 17.8 % High 0-5 [facility] Comment on above: Performed By: #### L 500.2500, L501.9985, L100.0100, BTS, M100.651 ####[facility] [address] [place], [address] Erythrocyte distribution width (RBC) [Ratio] 14.0 % Normal 11.6-14.6 [facility] Comment on above: Performed By: #### L 500.2500, L501.9985, L100.0100, BTS, M100.651 ####[facility] [address] [place], [address] Hematocrit (Bld) [Volume fraction] 41.2 % Normal 37-47 [facility] Comment on above: Performed By: #### L 500.2500, L501.9985, L100.0100, BTS, M100.651 ####[facility] [address] [place], [address] Hemoglobin (Bld) [Mass/Vol] 12.7 g/dL Normal 12.0-15.0 [facility] Comment on above: Performed By: #### L 500.2500, L501.9985, L100.0100, BTS, M100.651 ####[facility] [address] [place], [address] IG% 0.200 Normal 0.0-0.9 [facility] Comment on above: Result Comment: IG% - Immature Granulocytes (promyelocytes, myelocytes andmetamyelocytes) > 1% indicates that a LEFT SHIFT is Present. Performed By: #### L 500.2500, L501.9985, L100.0100, BTS, M100.651 ####[facility] [address] [place], [address] Lymphocytes/100 WBC (Bld) 33.1 % Normal 19-41 [facility] Comment on above: Performed By: #### L 500.2500, L501.9985, L100.0100, BTS, M100.651 ####[facility] [address] [place], [address] MCH (RBC) [Entitic mass] 28.0 pg Normal 27.0-32.0 [facility] Comment on above: Performed By: #### L 500.2500, L501.9985, L100.0100, BTS, M100.651 ####[facility] [address] [place], [address] MCHC (RBC) [Mass/Vol] 30.8 g/dL Low 32-36 [facility] Comment on above: Performed By: #### L 500.2500, L501.9985, L100.0100, BTS, M100.651 ####[facility] [address] [place], [address] MCV (RBC) [Entitic vol] 90.7 fL Normal 81-99 [facility] Comment on above: Performed By: #### L 500.2500, L501.9985, L100.0100, BTS, M100.651 ####[facility] [address] [place], [address] Monocytes/100 WBC (Bld) 9.6 % Normal 0-10 [facility] Comment on above: Performed By: #### L 500.2500, L501.9985, L100.0100, BTS, M100.651 ####[facility] [address] [place], [address] Neutrophils/100 WBC (Bld) 37.8 % Low 47-70 [facility] Comment on above: Performed By: #### L 500.2500, L501.9985, L100.0100, BTS, M100.651 ####[facility] [address] [place], [address] Nucleated RBC (Bld) [#/Vol] 0 10*3/uL Normal 0-5 [facility] Comment on above: Performed By: #### L 500.2500, L501.9985, L100.0100, BTS, M100.651 ####[facility] [address] [place], [address] Platelet mean volume (Bld) [Entitic vol] 11.6 fL Normal 6.2-12.0 [facility] Comment on above: Performed By: #### L 500.2500, L501.9985, L100.0100, BTS, M100.651 ####[facility] [address] [place], [address] Platelets (Bld) [#/Vol] 233 10*3/uL Normal 150-450 [facility] Comment on above: Performed By: #### L 500.2500, L501.9985, L100.0100, BTS, M100.651 ####[facility] [address] [place], [address] RBC (Bld) [#/Vol] 4.54 10*6/uL Normal 4.2-5.4 [facility] Comment on above: Performed By: #### L 500.2500, L501.9985, L100.0100, BTS, M100.651 ####[facility] [address] [place], [address] RDW SD 46.2 fl High 35.1-43.9 [facility] Comment on above: Performed By: #### L 500.2500, L501.9985, L100.0100, BTS, M100.651 ####[facility] [address] [place], [address] WBC (Bld) [#/Vol] 5.8 10*3/uL Normal 4.4-11.0 [facility] Comment on above: Performed By: #### L 500.2500, L501.9985, L100.0100, BTS, M100.651 ####[facility] [address] [place], [address] Hemoglobin A1con 06-12-2025 HbA1c (Bld) [Mass fraction] 6.2 % High <=5.6 [facility] Comment on above: Result Comment: Norm al < 5.7 % Prediabetic 5.7 - 6.4 % Diabetic >or= 6.5 % Please note range changes. Performed By: #### L 500.2500, L501.9985, L100.0100, BTS, M100.651 ####[facility] [address] [place], [place], [address] Magnesiumon 06-12-2025 Magnesium [Mass/Vol] 2.1 mg/dL Normal 1.5-2.2 [facility] Comment on above: Performed By: #### L 501.5200 ####[facility] [address] [place], [place], [address] Neurology Visit Reporton Neurology Visit Report Normal [facility] Type AND Screenon 06-12-2025 ABO and Rh group Nom (Bld) Blood group O Rh(D) positive Normal [facility] Comment on above: Order Comment: Surge ry Date: 06/23/25Reason for Laboratory Test [id number] Performed By: #### L 500.2500, L501.9985, L100.0100, BTS, M100.659 ####[facility] [address] [place], [address] CNOVon 06-11-2025 CNOV Office Visit (RHWSTR ) LELE PANG ([id number]) 1955 F Date Time Provider Department 06/11/25 [...] in 2015 though [facility] after multiple trigger finger surgeries and elevated rheumatologic markers. - Initially treated with methotrexate injections, which was later switched to leflunomide -history of osteoarthritis in her back and hips, for which she receives injections. She recently had a lumbar injection for severe sciatica with pain management at [facility], which significantly limited her mobility and [...] Surgery scheduled 06/23/[address] Chow at [facility], planning a lumbar fusion L4. Mood [...] Negative Negative Last Bone Density: 12/18/2024 at [facility] - LS T-score -2.2 stable (3% increase) [...] OUTSIDE STUDIES / DATA Labs done at [facility]. Sed rate 7 normal BMP with elevated BUN 23 normal creatinine 0.92 AST ALT normal Tisha 1 negative SSA negative SSB negative Small negative [employer] negative SCL 70 negative double-stranded DNA negative [...] mild de (more content not included)... Normal [facility] MR/PAT.ANEon 06-09-2025 MR/PAT.ANE Normal [facility] CBC W Auto Differential pane l (Bld)on 05-26-2025 Basophils (Bld) [#/Vol] 0.10 10*3/uL Normal <0.11 [facility] Comment on above: Order Comment: Speci men Type: BLOOD SPECIMEN Ordering Facility: [facility] Address: [address] [place] [address] Performed By: #### 2 4323-8 #### [facility] CLIA [id number] [address] [place] [address] [place] Basophils/100 WBC (Bld) 1.2 % Normal [facility] Comment on above: Order Comment: Speci men Type: BLOOD SPECIMEN Ordering Facility: [facility] Address: [address] [place] [address] Performed By: #### 2 4323-8 #### [facility] CLIA [id number] [address] [place] [address] [place] Differential cell count method Nom (Bld) Auto Normal [facility] Comment on above: Order Comment: Speci men Type: BLOOD SPECIMEN Ordering Facility: [facility] Address: [address] [place] [address] Performed By: #### 2 4323-8 #### [facility] CLIA [id number] [address] [place] [address] [place] Eosinophils (Bld) [#/Vol] 1.49 10*3/uL High <0.46 [facility] Comment on above: Order Comment: Speci men Type: BLOOD SPECIMEN Ordering Facility: [facility] Address: [address] [place] [address] Performed By: #### 2 4323-8 #### [facility] CLIA [id number] [address] [place] [address] [place] Eosinophils/100 WBC (Bld) 17.8 % Normal [facility] Comment on above: Order Comment: Speci men Type: BLOOD SPECIMEN Ordering Facility: [facility] Address: [address] [place] [address] Performed By: #### 2 4323-8 #### [facility] CLIA [id number] [address] [place] [address] [place] Erythrocyte distribution width (RBC) [Ratio] 13.3 % Normal 11.5-15.0 [facility] Comment on above: Order Comment: Speci men Type: BLOOD SPECIMEN Ordering Facility: [facility] Address: [address] [place] [address] Performed By: #### 2 4323-8 #### [facility] CLIA [id number] [address] [place] [address] [place] Hematocrit (Bld) [Volume fraction] 42.6 % Normal 36.0-46.0 [facility] Comment on above: Order Comment: Speci men Type: BLOOD SPECIMEN Ordering Facility: [facility] Address: [address] [place] [address] Performed By: #### 2 4323-8 #### [facility] CLIA [id number] [address] [place] [address] [place] Hemoglobin (Bld) [Mass/Vol] 13.7 g/dL Normal 11.5-15.5 [facility] Comment on above: Order Comment: Speci men Type: BLOOD SPECIMEN Ordering Facility: [facility] Address: [address] [place] [address] Performed By: #### 2 4323-8 #### [facility] CLIA [id number] [address] [place] [address] [place] Immature granulocytes (Bld) [#/Vol] 10*3/uL Normal <0.10 [facility] Comment on above: Order Comment: Speci men Type: BLOOD SPECIMEN Ordering Facility: [facility] Address: [address] [place] [address] Performed By: #### 2 4323-8 #### [facility] CLIA [id number] [address] [place] [address] [place] Immature granulocytes/100 WBC (Bld) 0.2 % Normal [facility] Comment on above: Order Comment: Speci men Type: BLOOD SPECIMEN Ordering Facility: [facility] Address: [address] [place] [address] Performed By: #### 2 4323-8 #### [facility] CLIA [id number] [address] [place] [address] [place] Lymphocytes (Bld) [#/Vol] 2.31 10*3/uL Normal 1.00-4.00 [facility] Comment on above: Order Comment: Speci men Type: BLOOD SPECIMEN Ordering Facility: [facility] Address: [address] [place] [address] Performed By: #### 2 4323-8 #### [facility] CLIA [id number] [address] [place] [address] [place] Lymphocytes/100 WBC (Bld) 27.5 % Normal [facility] Comment on above: Order Comment: Speci men Type: BLOOD SPECIMEN Ordering Facility: [facility] Address: [address] [place] [address] Performed By: #### 2 4323-8 #### [facility] CLIA [id number] [address] [place] [address] [place] MCH (RBC) [Entitic mass] 28.8 pg Normal 26.0-34.0 [facility] Comment on above: Order Comment: Speci men Type: BLOOD SPECIMEN Ordering Facility: [facility] Address: [address] [place] [address] Performed By: #### 2 4323-8 #### [facility] CLIA [id number] [address] [place] [address] [place] MCHC (RBC) [Mass/Vol] 32.2 g/dL Normal 30.5-36.0 [facility] Comment on above: Order Comment: Speci men Type: BLOOD SPECIMEN Ordering Facility: [facility] Address: [address] [place] [address] Performed By: #### 2 4323-8 #### [facility] CLIA [id number] [address] [place] [address] [place] MCV (RBC) [Entitic vol] 89.5 fL Normal 80.0-100.0 [facility] Comment on above: Order Comment: Speci men Type: BLOOD SPECIMEN Ordering Facility: [facility] Address: [address] [place] [address] Performed By: #### 2 4323-8 #### [facility] CLIA [id number] [address] [place] [address] [place] Monocytes (Bld) [#/Vol] 0.71 10*3/uL Normal <0.87 [facility] Comment on above: Order Comment: Speci men Type: BLOOD SPECIMEN Ordering Facility: [facility] Address: [address] [place] [address] Performed By: #### 2 4323-8 #### [facility] CLIA [id number] [address] [place] [address] [place] Monocytes/100 WBC (Bld) 8.5 % Normal [facility] Comment on above: Order Comment: Speci men Type: BLOOD SPECIMEN Ordering Facility: [facility] Address: [address] [place] [address] Performed By: #### 2 4323-8 #### [facility] CLIA [id number] [address] [place] [address] [place] Neutrophils (Bld) [#/Vol] 3.76 10*3/uL Normal 1.45-7.50 [facility] Comment on above: Order Comment: Speci men Type: BLOOD SPECIMEN Ordering Facility: [facility] Address: [address] [place] [address] Performed By: #### 2 4323-8 #### [facility] CLIA [id number] [address] [place] [address] [place] Neutrophils/100 WBC (Bld) 44.8 % Normal [facility] Comment on above: Order Comment: Speci men Type: BLOOD SPECIMEN Ordering Facility: [facility] Address: [address] [place] [address] Performed By: #### 2 4323-8 #### [facility] CLIA [id number] [address] [place] [address] [place] Nucleated RBC (Bld) [#/Vol] 10*3/uL Normal <0.01 [facility] Comment on above: Order Comment: Speci men Type: BLOOD SPECIMEN Ordering Facility: [facility] Address: [address] [place] [address] Performed By: #### 2 4323-8 #### [facility] CLIA [id number] [address] [place] [address] [place] Nucleated RBC/100 WBC (Bld) [Ratio] 0.0 /100 WBC Normal [facility] Comment on above: Order Comment: Speci men Type: BLOOD SPECIMEN Ordering Facility: [facility] Address: [address] [place] [address] Performed By: #### 2 4323-8 #### [facility] CLIA [id number] [address] [place] [address] [place] Platelet mean volume (Bld) [Entitic vol] 10.9 fL Normal 9.0-12.7 [facility] Comment on above: Order Comment: Speci men Type: BLOOD SPECIMEN Ordering Facility: [facility] Address: [address] [place] [address] Performed By: #### 2 4323-8 #### [facility] CLIA [id number] [address] [place] [address] [place] Platelets (Bld) [#/Vol] 227 10*3/uL Normal 150-400 [facility] Comment on above: Order Comment: Speci men Type: BLOOD SPECIMEN Ordering Facility: [facility] Address: [address] [place] [address] Performed By: #### 2 4323-8 #### [facility] CLIA [id number] [address] [place] [address] [place] RBC (Bld) [#/Vol] 4.76 10*6/uL Normal 3.90-5.20 [facility] Comment on above: Order Comment: Speci men Type: BLOOD SPECIMEN Ordering Facility: [facility] Address: [address] [place] [address] Performed By: #### 2 4323-8 #### [facility] CLIA [id number] [address] [place] [address] [place] WBC (Bld) [#/Vol] 8.39 10*3/uL Normal 3.70-11.00 [facility] Comment on above: Order Comment: Speci men Type: BLOOD SPECIMEN Ordering Facility: [facility] Address: [address] [place] [address] Performed By: #### 2 4323-8 #### [facility] CLIA [id number] [address] [place] [address] [place] CRP SerPl-mCncon 05-26-2025 CRP [Mass/Vol] mg/L Normal <0.9 [facility] Comment on above: Order Comment: Speci men Type: BLOOD SPECIMEN Ordering Facility: [facility] Address: [address] [place] [address] Performed By: #### 1 988-5 #### [facility] CLIA [id number] [address] [place] [address] [place] Comprehensive metabolic 2000 panelon 05-26-2025 Albumin [Mass/Vol] 4.2 g/dL Normal 3.9-4.9 [facility] Comment on above: Order Comment: Speci men Type: BLOOD SPECIMEN Ordering Facility: [facility] Address: [address] [place] [address] Performed By: #### 2 4323-8 #### [facility] CLIA [id number] [address] [place] [address] [place] ALP [Catalytic activity/Vol] 91 U/L Normal 34-123 [facility] Comment on above: Order Comment: Speci men Type: BLOOD SPECIMEN Ordering Facility: [facility] Address: [address] [place] [address] Performed By: #### 2 4323-8 #### [facility] CLIA [id number] [address] [place] [address] [place] ALT [Catalytic activity/Vol] 23 U/L Normal 7-38 [facility] Comment on above: Order Comment: Speci men Type: BLOOD SPECIMEN Ordering Facility: [facility] Address: [address] [place] [address] Performed By: #### 2 4323-8 #### [facility] CLIA [id number] [address] [place] [address] [place] Anion gap [Moles/Vol] 13 mmol/L Normal 8-15 [facility] Comment on above: Order Comment: Speci men Type: BLOOD SPECIMEN Ordering Facility: [facility] Address: [address] [place] [address] Performed By: #### 2 4323-8 #### [facility] CLIA [id number] [address] [place] [address] [place] AST [Catalytic activity/Vol] 39 U/L High 13-35 [facility] Comment on above: Order Comment: Speci men Type: BLOOD SPECIMEN Ordering Facility: [facility] Address: [address] [place] [address] Performed By: #### 2 4323-8 #### [facility] CLIA [id number] [address] [place] [address] [place] Bilirubin [Mass/Vol] 0.4 mg/dL Normal 0.2-1.3 [facility] Comment on above: Order Comment: Speci men Type: BLOOD SPECIMEN Ordering Facility: [facility] Address: [address] [place] [address] Performed By: #### 2 4323-8 #### [id number] [address] [place] [address] [place] Calcium [Mass/Vol] 10.6 mg/dL High 8.5-10.2 [facility] Comment on above: Order Comment: Speci men Type: BLOOD SPECIMEN Ordering Facility: [facility] Address: [address] [place] [address] Performed By: #### 2 4323-8 #### [facility] CLIA [id number] [address] [place] [address] [place] Chloride [Moles/Vol] 103 mmol/L Normal 98-107 [facility] Comment on above: Order Comment: Speci men Type: BLOOD SPECIMEN Ordering Facility: [facility] Address: [address] [place] [address] Performed By: #### 2 4323-8 #### [facility] [id number] [address] [place] [address] [place] CO2 [Moles/Vol] 21 mmol/L Low 22-30 [facility] Comment on above: Order Comment: Speci men Type: BLOOD SPECIMEN Ordering Facility: [facility] Address: [address] [place] [address] Performed By: #### 2 4323-8 #### [facility] CLIA [id number] [address] [place] [address] [place] Creatinine [Mass/Vol] 1.05 mg/dL High 0.58-0.96 [facility] Comment on above: Order Comment: Pauly magallanes Type: BLOOD SPECIMEN Ordering Facility: [facility] Address: [address] [place] [address] Performed By: #### 2 4323-8 #### [facility] CLIA [id number] [address] [place] [address] [place] eGFRcr SerPlBld CKD-EPI 2020 57 mL/min/1.73m??? Low >=60 [facility] Comment on above: Order Comment: Pauly magallanes Type: BLOOD SPECIMEN Ordering Facility: [facility] Address: [address] [place] [address] Result Comment: Mariza mated Glomerular Filtration Rate [...] GFR. Performed By: #### 2 4323-8 #### [facility] CLIA [id number] [address] [place] [address] [place] Glucose [Mass/Vol] 113 mg/dL High 74-99 [facility] Comment on above: Order Comment: Pauly magallanes Type: BLOOD SPECIMEN Ordering Facility: [facility] Address: [address] [place] [address] Result Comment: The [place] [employer] (ADA) provides guidance for cutoff [...] Standards of Medical Care in Diabetes 2016, [place] [employer]. Diabetes Care. 2016.39(Suppl 1). Performed By: #### 2 4323-8 #### [facility] CLIA [id number] [address] [place] [address] [place] Potassium [Moles/Vol] 4.2 mmol/L Normal 3.7-5.1 [facility] Comment on above: Order Comment: Osmeli men Type: BLOOD SPECIMEN Ordering Facility: [facility] Address: [address] [place] [address] Performed By: #### 2 4323-8 #### [facility] [id number] [address] [place] [address] [place] Protein [Mass/Vol] 7.0 g/dL Normal 6.3-8.0 [facility] Comment on above: Order Comment: Osmeli elpidio Type: BLOOD SPECIMEN Ordering Facility: [facility] Address: [address] [place] [address] Performed By: #### 2 4323-8 #### [facility] [id number] [address] [place] [address] [place] Sodium [Moles/Vol] 137 mmol/L Normal 136-144 [facility] Comment on above: Order Comment: Osmeli men Type: BLOOD SPECIMEN Ordering Facility: [facility] Address: [address] [place] [address] Performed By: #### 2 4323-8 #### [facility] [id number] [address] [place] [address] [place] Urea nitrogen [Mass/Vol] 22 mg/dL High 7-21 [facility] Comment on above: Order Comment: Speci men Type: BLOOD SPECIMEN Ordering Facility: [facility] Address: [address] [place] [address] Performed By: #### 2 4323-8 #### [facility] CLIA [id number] [address] [place] [address] [place] ESR Westergren method (Bld) [Velocity]on 05-26-2025 ESR (Bld) [Velocity] 5 mm/h Normal 0-20 [facility] Comment on above: Order Comment: Speci men Type: BLOOD SPECIMEN Ordering Facility: [facility] Address: [address] [place] [address] Performed By: #### 4 537-7 #### [facility] CLIA [id number] [address] [place] [address] [place] L3410.9992on 05-04-2025 [facility] Misc. COMMENT Normal . [facility] Comment on above: Order Comment: 10980 6METANEPHRINES LAV SERUM RF Result Comment: Test Ordered: 298207 Metanephrines, Frac., Pl. FreeTest(s) 110667-Hzlzxfibnhwbwgv, Pl; 021338-Hsidxqofrzti, Plwas developed and its performance characteristicsdetermined by [facility]. It has not been cleared or approvedby the Food and Drug Administration.Normetanephrine, Pl 318.9 [H ] pg/mL Reference Range: 0.0-285.2Metanephrine, Pl 71.7 pg/mL BN Reference Range: 0.0-88.0Performed at: - [facility] [id number] Director: Dereck Buchanan MD, Phone: [phone] at: [facility] [id number] Director: Fady Alfaro PhD, Phone: [phone] Performed By: #### L 500.3600, L501.0900, L3400.4000, L3300.1100, L3410.9992 ####[facility] [address] [place], [address] Aldosterone, Serumon 05-03-2 025 ALDOSTERONE,S 16.8 ng/dL Normal 0.0-30.0 [facility] Comment on above: Order Comment: Test( s) 799855-Nazae Activity, Plasmawas developed and its performance characteristicsdetermined by [facility]. It has not been cleared or approvedby the Food and Drug Administration. Result Comment: Perf ormed at: - [address] [id number] Director: Dereck Buchanan MD, Phone: [phone] Performed By: #### L 500.3600, L501.0900, L3400.4000, L3300.1100, L3410.9992 ####[facility] [address] [place], [address] Renin, Plasmaon 05-03-2025 RENIN, PLASMA 41.466 ng/mL/hr High 0.167-5.380 [facility] Comment on above: Order Comment: Test( s) 479594-Tusgm Activity, Plasmawas developed and its performance characteristicsdetermined by [facility]. It has not been cleared or approvedby the Food and Drug Administration. Performed By: #### L 500.3600, L501.0900, L3400.4000, L3300.1100, L3410.9992 ####[facility] [address] [place], [address] Protein+Creatinine Ratio,Uri neon 04-25-2025 PROT:CRE RATIO 151 mg/g CRE Normal 0-200 [facility] Comment on above: Performed By: #### L 500.3600, L501.0900, L3400.4000, L3300.1100, L3410.9992 ####[facility] [address] [place], [address] Protein (U) [Mass/Vol] 12.6 mg/dL High 0.0-12.0 [facility] Comment on above: Performed By: #### L 500.3600, L501.0900, L3400.4000, L3300.1100, L3410.9992 ####[facility] [address] [place], [address] UR CREAT 83.70 mg/dL Normal 28.00-217.00 [facility] Comment on above: Performed By: #### L 500.3600, L501.0900, L3400.4000, L3300.1100, L3410.9992 ####[facility] [address] [place], [address] Renal Profileon 04-25-2025 Albumin [Mass/Vol] 4.2 g/dL Normal 3.4-4.8 [facility] Comment on above: Performed By: #### L 500.3600, L501.0900, L3400.4000, L3300.1100, L3410.9992 ####[facility] [address] [place], [address] BUN/CRE 21.7 RATIO High 10-20 [facility] Comment on above: Performed By: #### L 500.3600, L501.0900, L3400.4000, L3300.1100, L3410.9992 ####[facility] [address] [place], [address] Calcium [Mass/Vol] 9.8 mg/dL Normal 7.6-11.0 [facility] Comment on above: Performed By: #### L 500.3600, L501.0900, L3400.4000, L3300.1100, L3410.9992 ####[facility] [address] [place], [address] Chloride [Moles/Vol] 104 mmol/L Normal 98-108 [facility] Comment on above: Performed By: #### L 500.3600, L501.0900, L3400.4000, L3300.1100, L3410.9992 ####[facility] [address] [place], [address] CO2 [Moles/Vol] 22.0 mmol/L Normal 21.0-32.0 [facility] Comment on above: Performed By: #### L 500.3600, L501.0900, L3400.4000, L3300.1100, L3410.9992 ####[facility] [address] [place], [address] Creatinine [Mass/Vol] 0.88 mg/dL Normal 0.70-1.20 [facility] Comment on above: Performed By: #### L 500.3600, L501.0900, L3400.4000, L3300.1100, L3410.9992 ####[facility] [address] [place], [address] GAP 15 Normal 5-15 [facility] Comment on above: Performed By: #### L 500.3600, L501.0900, L3400.4000, L3300.1100, L3410.9992 ####[facility] [address] [place], [address] GFR/1.73 sq M.predicted among non-blacks MDRD (S/P/Bld) [Vol rate/Area] 71 mL/min/{1.73_m2} Normal >60 [facility] Comment on above: Result Comment: mL/m in/1.73m2 CKD-EPI Creatinine Equation (2020) Performed By: #### L 500.3600, L501.0900, L3400.4000, L3300.1100, L3410.9992 ####[facility] [address] [place], [address] Glucose [Mass/Vol] 104 mg/dL High 70-99 [facility] Comment on above: Performed By: #### L 500.3600, L501.0900, L3400.4000, L3300.1100, L3410.9992 ####[facility] [address] [place], [address] Phosphate [Mass/Vol] 2.9 mg/dL Normal 2.7-4.5 [facility] Comment on above: Performed By: #### L 500.3600, L501.0900, L3400.4000, L3300.1100, L3410.9992 ####[facility] [address] [place], [address] Potassium [Moles/Vol] 3.6 mmol/L Normal 3.3-5.1 [facility] Comment on above: Performed By: #### L 500.3600, L501.0900, L3400.4000, L3300.1100, L3410.9992 ####[facility] [address] [place], [address] Sodium [Moles/Vol] 141 mmol/L Normal 133-145 [facility] Comment on above: Performed By: #### L 500.3600, L501.0900, L3400.4000, L3300.1100, L3410.9992 ####[facility] [address] [place], [address] Urea nitrogen [Mass/Vol] 19 mg/dL Normal 4-19 [facility] Comment on above: Performed By: #### L 500.3600, L501.0900, L3400.4000, L3300.1100, L3410.9992 ####[facility] [address] [place], [address] Stress Reporton 04-15-2025 Stress Report Normal [facility] Hepatitis A AB, Totalon 03-04 HEPATITIS A,TOT Negative Normal Negative [facility] Comment on above: Result Comment: Comm ent: [...] HAVtotal antibody results to IgM (e.g., panel #[id number] HAVAntibody w/ Rfx).Performed at: [address] [id number] Director: Dereck Buchanan MD, Phone: [phone] at: [place] [id number] [place], [place] [id number] Director: Fady Alfaro PhD, Phone: [phone] Performed By: #### L 3890.6301, L3600.3400, L3890.6202, L3890.6006, M100.651, L3100.0300, BTSPAT ####[facility] [address] [place], [address] Nicotine Screen Bloodon 03-04 COTININE BLOOD 11.2 ng/mL Normal . [facility] Comment on above: Result Comment: This test was developed and its performance characteristicsdetermined by [employer]. It has not been cleared orapproved by the Food and Drug Administration.Cotinine levels greater than 20.0 are consistent with theuse of tobacco or tobacco cessation products. Performed By: #### L 3890.6301, L3600.3400, L3890.6202, L3890.6006, M100.651, L3100.0300, BTSPAT ####[facility] [address] [place], [place], [id number] NICOTINE BLOOD <1.0 Normal . [facility] Comment on above: Result Comment: This test was developed and its performance characteristicsdetermined by [employer]. It has not been cleared orapproved by the Food and Drug Administration.Nicotine levels greater than 2.0 are consistent with theuse of tobacco or tobacco cessation products. Performed By: #### L 3890.6301, L3600.3400, L3890.6202, L3890.6006, M100.651, L3100.0300, BTSPAT ####[facility] [address] [place], [address] Pulmonary Visit Reporton Pulmonary Visit Report Normal [facility] Echo Completeon 03-10-2025 Echo Complete Normal [facility] HIVon 03-08-2025 HIV Non-Reactive Normal Nonreactive [facility] Comment on above: Result Comment: Non- ReactiveReactiveRepeatedly reactive samples must be confirmed according [facility] recommended confirmatory algorithms. The subresults foreither HIVAG or AHIV can be used as an aid in the selectionof the confirmation algorithm for reactive samples.Send out specimens with Reactive results to [facility] forconfirmation.Order the HIV antibody detection and differentiation:lc#[id number] Performed By: #### L 3890.6301, L3600.3400, L3890.6202, L3890.6006, M100.651, L3100.0300, BTSPAT ####[facility] [address] [place], [address] Hepatitis B Surface Antibody on 03-08-2025 HEP B Surf Ab Non-Reactive Normal [facility] Comment on above: Result Comment: <8.5 mIU/mL: Non-Reactive8.5<= x <11.5 mIU/mL: Indeterminate>=11.5 mIU/mL: Reactive Non Reactive: Inconsistent with immunity less than <10 mIU/mL Reactive: Consistent with immunity greater than or equal to 10 mIU/mL Performed By: #### L 3890.6301, L3600.3400, L3890.6202, L3890.6006, M100.651, L3100.0300, BTSPAT ####[facility] [address] [place], [address] Hepatitis C Antibodyon 03-08 Hepatitis C Ab Non-Reactive Normal Nonreactive [facility] Comment on above: Result Comment: Reac tive: Presumptive evidence of antibodies to HCV. [facility] for supplemental testing.Non-Reactive: Antibodies to HCV were not detected; does notexclude the possibility of exposure to HCVReactive Results are presumptive evidence of antibodies toHCV. Follow CDC recommendations for supplemental testing.Order confirmation testing: HCV Quant by PCR testing -HCVPCR lc#[id number] Non Reactive: < 0.8 Equivocal: >/= 0.8 to < 1.0 Reactive: >/= 1.0The CDC requires that a reactive/equivocal HCV antibodyresult be sent out for confirmation. HCV Quant by PCRtesting. Performed By: #### L 3890.6301, L3600.3400, L3890.6202, L3890.6006, M100.651, L3100.0300, BTSPAT ####[facility] [address] [place], [address] MRSA/SAID NASAL SCREENon MRSA+SAID SCRN Reason for Exam: Jazmin clarisse MRSA MRSA Negative S. AUREUS S. aureus Negative Normal [facility] Comment on above: Performed By: #### L 3890.6301, L3600.3400, L3890.6202, L3890.6006, M100.651, L3100.0300, BTSPAT ####[facility] [address] [place], [place], [address] Magnesiumon 03-08-2025 Magnesium [Mass/Vol] 2.2 mg/dL Normal 1.5-2.2 [facility] Comment on above: Performed By: #### L 501.5200 ####[facility] [address] [place], [place], [id number] Type AND Screen - PAT ONLYon 03-08-2025 ABO and Rh group Nom (Bld) Blood group O Rh(D) positive Normal [facility] Comment on above: Order Comment: Surge ry Date: 03/17/25Reason for Laboratory Test PRE-[id number] Lumbar Fusion L3-4 anterior and revision posterior Performed By: #### L 3890.6301, L3600.3400, L3890.6202, L3890.6006, M100.651, L3100.0300, BTSPAT ####[facility] [address] [place], [place], [address] CNOVon 03-06-2025 CNOV Office Visit (RHWSTR ) LELE PANG ([id number]) 1955 F Date Time Provider Department 03/06/25 [...] in 2014 though [facility] after multiple trigger finger surgeries and elevated rheumatologic markers. - Initially treated with methotrexate injections, which was later switched to leflunomide -history of osteoarthritis in her back and hips, for which she receives injections. She recently had a lumbar injection for severe sciatica with pain management at [facility], which significantly limited her mobility and [...] stress test and ECHO done all through [facility]. Mentally she feels like she is going [...] Negative Negative Last Bone Density: 12/18/2024 at [facility] - LS T-score -2.2 stable (3% increase) [...] OUTSIDE STUDIES / DATA Labs done at [facility]. Sed rate 7 normal BMP with elevated BUN 23 normal creatinine 0.92 AST ALT normal Tisha 1 negative SSA negative SSB negative Small negative [employer] negative SCL 70 negative double-stranded DNA negative [...] study X- (more content not included)... Normal [facility] Orthopedic Visit Reporton Orthopedic Visit Report Normal [facility] MR/PAT.ANEon 03-04-2025 MR/PAT.ANE Normal [facility] CBC W/Diff, Automatedon - Absolute Lymph 2.77 X10 3/uL Normal 0.83-4.51 [facility] Comment on above: Performed By: #### L 501.9985, L100.0100, L506.1001, L501.9520 ####[facility] [address] [place], [address] Absolute Neut 3.4 X10 3/uL Normal 2.0-7.7 [facility] Comment on above: Performed By: #### L 501.9985, L100.0100, L506.1001, L501.9520 ####[facility] [address] [place], [address] Basophils/100 WBC (Bld) 1.2 % High 0-1 [facility] Comment on above: Performed By: #### L 501.9985, L100.0100, L506.1001, L501.9520 ####[facility] [address] [place], [address] Eosinophils/100 WBC (Bld) 8.6 % High 0-5 [facility] Comment on above: Performed By: #### L 501.9985, L100.0100, L506.1001, L501.9520 ####[facility] [address] [place], [address] Erythrocyte distribution width (RBC) [Ratio] 12.3 % Normal 11.6-14.6 [facility] Comment on above: Performed By: #### L 501.9985, L100.0100, L506.1001, L501.9520 ####[facility] [address] [place], [address] Hematocrit (Bld) [Volume fraction] 39.4 % Normal 37-47 [facility] Comment on above: Performed By: #### L 501.9985, L100.0100, L506.1001, L501.9520 ####[facility] [address] [place], [address] Hemoglobin (Bld) [Mass/Vol] 12.4 g/dL Normal 12.0-15.0 [facility] Comment on above: Performed By: #### L 501.9985, L100.0100, L506.1001, L501.9520 ####[facility] [address] [place], [address] IG% 0.500 Normal 0.0-0.9 [facility] Comment on above: Result Comment: IG% - Immature Granulocytes (promyelocytes, myelocytes andmetamyelocytes) > 1% indicates that a LEFT SHIFT is Present. Performed By: #### L 501.9985, L100.0100, L506.1001, L501.9520 ####[facility] [address] [place], [address] Lymphocytes/100 WBC (Bld) 36.5 % Normal 19-41 [facility] Comment on above: Performed By: #### L 501.9985, L100.0100, L506.1001, L501.9520 ####[facility] [address] [place], [address] MCH (RBC) [Entitic mass] 29.4 pg Normal 27.0-32.0 [facility] Comment on above: Performed By: #### L 501.9985, L100.0100, L506.1001, L501.9520 ####[facility] [address] [place], [address] MCHC (RBC) [Mass/Vol] 31.5 g/dL Low 32-36 [facility] Comment on above: Performed By: #### L 501.9985, L100.0100, L506.1001, L501.9520 ####[facility] [address] [place], [address] MCV (RBC) [Entitic vol] 93.4 fL Normal 81-99 [facility] Comment on above: Performed By: #### L 501.9985, L100.0100, L506.1001, L501.9520 ####[facility] [address] [place], [address] Monocytes/100 WBC (Bld) 8.8 % Normal 0-10 [facility] Comment on above: Performed By: #### L 501.9985, L100.0100, L506.1001, L501.9520 ####[facility] [address] [place], [address] Neutrophils/100 WBC (Bld) 44.4 % Low 47-70 [facility] Comment on above: Performed By: #### L 501.9985, L100.0100, L506.1001, L501.9520 ####[facility] [address] [place], [address] Nucleated RBC (Bld) [#/Vol] 0 10*3/uL Normal 0-5 [facility] Comment on above: Performed By: #### L 501.9985, L100.0100, L506.1001, L501.9520 ####[facility] [address] [place], [address] Platelet mean volume (Bld) [Entitic vol] 10.1 fL Normal 6.2-12.0 [facility] Comment on above: Performed By: #### L 501.9985, L100.0100, L506.1001, L501.9520 ####[facility] [address] [place], [address] Platelets (Bld) [#/Vol] 299 10*3/uL Normal 150-450 [facility] Comment on above: Performed By: #### L 501.9985, L100.0100, L506.1001, L501.9520 ####[facility] [address] [place], [address] RBC (Bld) [#/Vol] 4.22 10*6/uL Normal 4.2-5.4 [facility] Comment on above: Performed By: #### L 501.9985, L100.0100, L506.1001, L501.9520 ####[facility] [address] [place], [address] RDW SD 42.0 fl Normal 35.1-43.9 [facility] Comment on above: Performed By: #### L 501.9985, L100.0100, L506.1001, L501.9520 ####[facility] [address] [place], [address] WBC (Bld) [#/Vol] 7.6 10*3/uL Normal 4.4-11.0 [facility] Comment on above: Performed By: #### L 501.9985, L100.0100, L506.1001, L501.9520 ####[facility] [address] [place], [address] Hemoglobin A1con 02-25-2025 HbA1c (Bld) [Mass fraction] 5.7 % Normal <=5.6 [facility] Comment on above: Result Comment: Norm al < 5.7 % Prediabetic 5.7 - 6.4 % Diabetic >or= 6.5 % Please note range changes. Performed By: #### L 501.9985, L100.0100, L506.1001, L501.9520 ####[facility] [address] [place], [address] Office Visit Reporton 2024 Office Visit Report Normal [facility] Thyroid Stim Hormone (TSH)on 02-25-2025 TSH 0.573 uIU/mL Normal 0.300-4.200 [facility] Comment on above: Performed By: #### L 501.9985, L100.0100, L506.1001, L501.9520 ####[facility] [address] [place], [address] Vitamin D,25 Hydroxyon 02-25 Vitamin D 25-OH 88.7 ng/mL Normal 30-100 [facility] Comment on above: Result Comment: Paty min D StatusDeficiency: <20 ng/mL (50nmol/L)Insufficiency: 20-30 ng/mL (50-75 nmol/L)Sufficiency: 30-100 ng/mL (75-250 nmol/L)Toxicity: >100 ng/mL (>250 nmol/L) Performed By: #### L 501.9985, L100.0100, L506.1001, L501.9520 ####[facility] [address] [place], [address] Spine Lumbar without Contras ton 06-20-2025 Spine Lumbar without Contrast Normal [facility] 6 Minute Walk Teston 025 6 Minute Walk Test Normal [facility] 25(OH)D3 SerPl-mCncon 2024 25-hydroxyvitamin D3 [Mass/Vol] 91.5 ng/mL High 31.0-80.0 [facility] Comment on above: Order Comment: Pauly magallanes Type: BLOOD SPECIMEN Ordering Facility: [facility] Address: [address] [place] [address] Performed By: #### 2 4323-8 #### [facility] CLIA [id number] [address] [place] [address] [place] [facility] BLOOD TB SCREENon 02-11-2025 M. tuberculosis tuberculin stim IFN-g Ql (Bld) Negative Normal [facility] Comment on above: Order Comment: Pauly magallanes Type: BLOOD SPECIMEN Ordering Facility: [facility] Address: [address] [place] [address] Performed By: #### 1 988-5 #### [facility] CLIA [id number] [address] [place] [address] [place] MITOGEN MINUS NIL >9.98 Normal >=0.50 [facility] Comment on above: Order Comment: Pauly magallanes Type: BLOOD SPECIMEN Ordering Facility: [facility] Address: [address] [place] [address] Performed By: #### 1 988-5 #### [facility] CLIA [id number] [address] [place] [address] [place] [facility] TB GAMMA INTERPRETATION Infection with M. tuberculosis complex is unlikely. If latent tuberculosis infection is highly suspected, a negative result does not rule out the infection. Specimens from immunocompromised patients and those <5 years of age may show false negative results. In case of a contact investigation, please repeat 8-12 weeks after a known exposure. Normal [facility] Comment on above: Order Comment: Pauly magallanes Type: BLOOD SPECIMEN Ordering Facility: [facility] Address: [address] [place] [address] Performed By: #### 1 988-5 #### [facility] CLIA [id number] [address] [place] [address] [place] TB NIL 0.02 IU/mL Normal <=8.00 [facility] Comment on above: Order Comment: Speci men Type: BLOOD SPECIMEN Ordering Facility: [facility] Address: [address] [place] [address] Performed By: #### 1 988-5 #### [facility] CLIA [id number] [address] [place] [address] [place] TB1 AG MINUS NIL 0.00 IU/mL Normal <0.35 [facility] Comment on above: Order Comment: Speci men Type: BLOOD SPECIMEN Ordering Facility: [facility] Address: [address] [place] [address] Performed By: #### 1 988-5 #### [facility] CLIA [id number] [address] [place] [address] [place] TB2 AG MINUS NIL 0.00 IU/mL Normal <0.35 [facility] Comment on above: Order Comment: Speci men Type: BLOOD SPECIMEN Ordering Facility: [facility] Address: [address] [place] [address] Performed By: #### 1 988-5 #### [facility] CLIA [id number] [address] [place] [address] [place] CBC W Auto Differential pane l (Bld)on 02-11-2025 Basophils (Bld) [#/Vol] 0.07 10*3/uL Normal <0.11 [facility] Comment on above: Order Comment: Speci men Type: BLOOD SPECIMEN Ordering Facility: [facility] Address: [address] [place] [address] Performed By: #### 2 4323-8 #### [facility] CLIA [id number] [address] [place] [address] [place] Basophils/100 WBC (Bld) 0.9 % Normal [facility] Comment on above: Order Comment: Speci men Type: BLOOD SPECIMEN Ordering Facility: [facility] Address: [address] [place] [address] Performed By: #### 2 4323-8 #### [facility] CLIA [id number] [address] [place] [address] [place] Differential cell count method Nom (Bld) Auto Normal [facility] Comment on above: Order Comment: Speci men Type: BLOOD SPECIMEN Ordering Facility: [facility] Address: [address] [place] [address] Performed By: #### 2 4323-8 #### [facility] CLIA [id number] [address] [place] [address] [place] Eosinophils (Bld) [#/Vol] 0.28 10*3/uL Normal <0.46 [facility] Comment on above: Order Comment: Speci men Type: BLOOD SPECIMEN Ordering Facility: [facility] Address: [address] [place] [address] Performed By: #### 2 4323-8 #### [facility] CLIA [id number] [address] [place] [address] [place] Eosinophils/100 WBC (Bld) 3.7 % Normal [facility] Comment on above: Order Comment: Speci men Type: BLOOD SPECIMEN Ordering Facility: [facility] Address: [address] [place] [address] Performed By: #### 2 4323-8 #### [facility] CLIA [id number] [address] [place] [address] [place] Erythrocyte distribution width (RBC) [Ratio] 12.7 % Normal 11.5-15.0 [facility] Comment on above: Order Comment: Speci men Type: BLOOD SPECIMEN Ordering Facility: [facility] Address: [address] [place] [address] Performed By: #### 2 4323-8 #### [facility] CLIA [id number] [address] [place] [address] [place] Hematocrit (Bld) [Volume fraction] 43.7 % Normal 36.0-46.0 [facility] Comment on above: Order Comment: Speci men Type: BLOOD SPECIMEN Ordering Facility: [facility] Address: [address] [place] [address] Performed By: #### 2 4323-8 #### [facility] CLIA [id number] [address] [place] [address] [place] Hemoglobin (Bld) [Mass/Vol] 13.8 g/dL Normal 11.5-15.5 [facility] Comment on above: Order Comment: Speci men Type: BLOOD SPECIMEN Ordering Facility: [facility] Address: [address] [place] [address] Performed By: #### 2 4323-8 #### [facility] CLIA [id number] [address] [place] [address] [place] Immature granulocytes (Bld) [#/Vol] 0.03 10*3/uL Normal <0.10 [facility] Comment on above: Order Comment: Speci men Type: BLOOD SPECIMEN Ordering Facility: [facility] Address: [address] [place] [address] Performed By: #### 2 4323-8 #### [facility] CLIA [id number] [address] [place] [address] [place] Immature granulocytes/100 WBC (Bld) 0.4 % Normal [facility] Comment on above: Order Comment: Speci men Type: BLOOD SPECIMEN Ordering Facility: [facility] Address: [address] [place] [address] Performed By: #### 2 4323-8 #### [facility] CLIA [id number] [address] [place] [address] [place] Lymphocytes (Bld) [#/Vol] 2.66 10*3/uL Normal 1.00-4.00 [facility] Comment on above: Order Comment: Speci men Type: BLOOD SPECIMEN Ordering Facility: [facility] Address: [address] [place] [address] Performed By: #### 2 4323-8 #### [facility] CLIA [id number] [address] [place] [address] [place] Lymphocytes/100 WBC (Bld) 35.6 % Normal [facility] Comment on above: Order Comment: Speci men Type: BLOOD SPECIMEN Ordering Facility: [facility] Address: [address] [place] [address] Performed By: #### 2 4323-8 #### [facility] CLIA [id number] [address] [place] [address] [place] MCH (RBC) [Entitic mass] 29.4 pg Normal 26.0-34.0 [facility] Comment on above: Order Comment: Speci men Type: BLOOD SPECIMEN Ordering Facility: [facility] Address: [address] [place] [address] Performed By: #### 2 4323-8 #### [facility] CLIA [id number] [address] [place] [address] [place] MCHC (RBC) [Mass/Vol] 31.6 g/dL Normal 30.5-36.0 [facility] Comment on above: Order Comment: Speci men Type: BLOOD SPECIMEN Ordering Facility: [facility] Address: [address] [place] [address] Performed By: #### 2 4323-8 #### [facility] CLIA [id number] [address] [place] [address] [place] MCV (RBC) [Entitic vol] 93.2 fL Normal 80.0-100.0 [facility] Comment on above: Order Comment: Speci men Type: BLOOD SPECIMEN Ordering Facility: [facility] Address: [address] [place] [address] Performed By: #### 2 4323-8 #### [facility] CLIA [id number] [address] [place] [address] [place] Monocytes (Bld) [#/Vol] 0.60 10*3/uL Normal <0.87 [facility] Comment on above: Order Comment: Speci men Type: BLOOD SPECIMEN Ordering Facility: [facility] Address: [address] [place] [address] Performed By: #### 2 4323-8 #### [facility] CLIA [id number] [address] [place] [address] [place] Monocytes/100 WBC (Bld) 8.0 % Normal [facility] Comment on above: Order Comment: Speci men Type: BLOOD SPECIMEN Ordering Facility: [facility] Address: [address] [place] [address] Performed By: #### 2 4323-8 #### [facility] CLIA [id number] [address] [place] [address] [place] Neutrophils (Bld) [#/Vol] 3.83 10*3/uL Normal 1.45-7.50 [facility] Comment on above: Order Comment: Speci men Type: BLOOD SPECIMEN Ordering Facility: [facility] Address: [address] [place] [address] Performed By: #### 2 4323-8 #### [facility] CLIA [id number] [address] [place] [address] [place] Neutrophils/100 WBC (Bld) 51.4 % Normal [facility] Comment on above: Order Comment: Speci men Type: BLOOD SPECIMEN Ordering Facility: [facility] Address: [address] [place] [address] Performed By: #### 2 4323-8 #### [facility] CLIA [id number] [address] [place] [address] [place] Nucleated RBC (Bld) [#/Vol] 10*3/uL Normal <0.01 [facility] Comment on above: Order Comment: Speci men Type: BLOOD SPECIMEN Ordering Facility: [facility] Address: [address] [place] [address] Performed By: #### 2 4323-8 #### [facility] CLIA [id number] [address] [place] [address] [place] Nucleated RBC/100 WBC (Bld) [Ratio] 0.0 /100 WBC Normal [facility] Comment on above: Order Comment: Speci men Type: BLOOD SPECIMEN Ordering Facility: [facility] Address: [address] [place] [address] Performed By: #### 2 4323-8 #### [facility] CLIA [id number] [address] [place] [address] [place] Platelet mean volume (Bld) [Entitic vol] 10.4 fL Normal 9.0-12.7 [facility] Comment on above: Order Comment: Speci men Type: BLOOD SPECIMEN Ordering Facility: [facility] Address: [address] [place] [address] Performed By: #### 2 4323-8 #### [facility] CLIA [id number] [address] [place] [address] [place] Platelets (Bld) [#/Vol] 252 10*3/uL Normal 150-400 [facility] Comment on above: Order Comment: Speci men Type: BLOOD SPECIMEN Ordering Facility: [facility] Address: [address] [place] [address] Performed By: #### 2 4323-8 #### [facility] CLIA [id number] [address] [place] [address] [place] RBC (Bld) [#/Vol] 4.69 10*6/uL Normal 3.90-5.20 [facility] Comment on above: Order Comment: Speci men Type: BLOOD SPECIMEN Ordering Facility: [facility] Address: [address] [place] [address] Performed By: #### 2 4323-8 #### [facility] CLIA [id number] [address] [place] [address] [place] WBC (Bld) [#/Vol] 7.47 10*3/uL Normal 3.70-11.00 [facility] Comment on above: Order Comment: Speci men Type: BLOOD SPECIMEN Ordering Facility: [facility] Address: [address] [place] [address] Performed By: #### 2 4323-8 #### [facility] CLIA [id number] [address] [place] [address] [place] CRP [facility] 02-11-2025 CRP [Mass/Vol] mg/L Normal <0.9 [facility] Comment on above: Order Comment: Speci men Type: BLOOD SPECIMEN Ordering Facility: [facility] Address: [address] [place] [address] Performed By: #### 1 988-5 #### [facility] CLIA [id number] [address] [place] [address] [place] Comprehensive metabolic 2000 panelon 02-11-2025 Albumin [Mass/Vol] 4.5 g/dL Normal 3.9-4.9 [facility] Comment on above: Order Comment: Speci men Type: BLOOD SPECIMEN Ordering Facility: [facility] Address: [address] [place] [address] Performed By: #### 2 4323-8 #### [facility] CLIA [id number] [address] [place] [address] [place] ALP [Catalytic activity/Vol] 72 U/L Normal 34-123 [facility] Comment on above: Order Comment: Speci men Type: BLOOD SPECIMEN Ordering Facility: [facility] Address: [address] [place] [address] Performed By: #### 2 4323-8 #### [facility] CLIA [id number] [address] [place] [address] [place] ALT [Catalytic activity/Vol] 26 U/L Normal 7-38 [facility] Comment on above: Order Comment: Speci men Type: BLOOD SPECIMEN Ordering Facility: [facility] Address: [address] [place] [address] Performed By: #### 2 4323-8 #### [facility] CLIA [id number] [address] [place] [address] [place] Anion gap [Moles/Vol] 14 mmol/L Normal 8-15 [facility] Comment on above: Order Comment: Speci men Type: BLOOD SPECIMEN Ordering Facility: [facility] Address: [address] [place] [address] Performed By: #### 2 4323-8 #### [facility] CLIA [id number] [address] [place] [address] [place] AST [Catalytic activity/Vol] 24 U/L Normal 13-35 [facility] Comment on above: Order Comment: Speci men Type: BLOOD SPECIMEN Ordering Facility: [facility] Address: [address] [place] [address] Performed By: #### 2 4323-8 #### [facility] CLIA [id number] [address] [place] [address] [place] Bilirubin [Mass/Vol] 0.3 mg/dL Normal 0.2-1.3 [facility] Comment on above: Order Comment: Speci men Type: BLOOD SPECIMEN Ordering Facility: [facility] Address: [address] [place] [id number] Performed By: #### 2 4323-8 #### [facility] CLIA [id number] [address] [place] [address] [place] Calcium [Mass/Vol] 9.8 mg/dL Normal 8.5-10.2 [facility] Comment on above: Order Comment: Speci men Type: BLOOD SPECIMEN Ordering Facility: [facility] Address: [address] [place], [place] [address] Performed By: #### 2 4323-8 #### [facility] CLIA [id number] [address] [place] [address] [place] Chloride [Moles/Vol] 99 mmol/L Normal 98-107 [facility] Comment on above: Order Comment: Speci men Type: BLOOD SPECIMEN Ordering Facility: [facility] Address: [address] [place] [address] Performed By: #### 2 4323-8 #### [facility] CLIA [id number] [address] [place] [address] [place] CO2 [Moles/Vol] 26 mmol/L Normal 22-30 [facility] Comment on above: Order Comment: Speci men Type: BLOOD SPECIMEN Ordering Facility: [facility] Address: [address] [place] [address] Performed By: #### 2 4323-8 #### [facility] CLIA [id number] [address] [place] [address] [place] Creatinine [Mass/Vol] 0.84 mg/dL Normal 0.58-0.96 [facility] Comment on above: Order Comment: Speci men Type: BLOOD SPECIMEN Ordering Facility: [facility] Address: [address] [place] [address] Performed By: #### 2 4323-8 #### [facility] CLIA [id number] [address] [place] [address] [place] Creatinine and Glomerular filtration rate.predicted panel (S/P/Bld) 75 mL/min/1.73m??? Normal >=60 [facility] Comment on above: Order Comment: Speci men Type: BLOOD SPECIMEN Ordering Facility: [facility] Address: [address] [place] [address] Result Comment: Mariza mated Glomerular Filtration Rate [...] GFR. Performed By: #### 2 4323-8 #### [facility] CLIA [id number] [address] [place] [address] [place] Glucose [Mass/Vol] 86 mg/dL Normal 74-99 [facility] Comment on above: Order Comment: Pauly magallanes Type: BLOOD SPECIMEN Ordering Facility: [facility] Address: [address] [place] [address] Result Comment: The [place] Diabetes Association (ADA) provides guidance for cutoff [...] Standards of Medical Care in Diabetes 2016, [place] [employer]. Diabetes Care. 2016.39(Suppl 1). Performed By: #### 2 4323-8 #### [id number] [address] [place] [address] [place] Potassium [Moles/Vol] 3.6 mmol/L Low 3.7-5.1 [facility] Comment on above: Order Comment: Pauly magallanes Type: BLOOD SPECIMEN Ordering Facility: [facility] Address: [address] [place] [id number] Performed By: #### 2 4323-8 #### [facility] CLIA [id number] [address] [place] [address] [place] Protein [Mass/Vol] 7.2 g/dL Normal 6.3-8.0 [facility] Comment on above: Order Comment: Speci men Type: BLOOD SPECIMEN Ordering Facility: [facility] Address: [address] [place] [address] Performed By: #### 2 4323-8 #### [facility] CLIA [id number] [address] [place] [address] [place] Sodium [Moles/Vol] 139 mmol/L Normal 136-144 [facility] Comment on above: Order Comment: Speci men Type: BLOOD SPECIMEN Ordering Facility: [facility] Address: [address] [place] [address] Performed By: #### 2 4323-8 #### [facility] [id number] [address] [place] [address] [place] Urea nitrogen [Mass/Vol] 22 mg/dL High 7-21 [facility] Comment on above: Order Comment: Speci men Type: BLOOD SPECIMEN Ordering Facility: [facility] Address: [address] [place] [address] Performed By: #### 2 4323-8 #### [facility] [id number] [address] [place] [address] [place] ESR Westergren method (Bld) [Velocity]on 02-11-2025 ESR (Bld) [Velocity] 2 mm/h Normal 0-20 [facility] Comment on above: Order Comment: Speci men Type: BLOOD SPECIMEN Ordering Facility: [facility] Address: [address] [place] [address] Performed By: #### 2 4323-8 #### [facility] [id number] [address] [place] [address] [place] HBV core Ab Ser Qlon 025 HBV core Ab Ql (S) Negative Normal Negative [facility] Comment on above: Order Comment: Pauly magallanes Type: BLOOD SPECIMEN Ordering Facility: [facility] Address: [address] [place] [address] Result Comment: No e vidence of current or past infection with Hepatitis B virus. Should recent infection be suspected, repeat testing may be considered 3-4 weeks after this draw. Performed By: #### 2 4323-8 #### [facility] CLIA [id number] [address] [place] [address] [place] HBV surface Ab Ql (S)on 02-02 HBV surface Ab Qn (S) <8.00 Normal [facility] Comment on above: Order Comment: Pauly magallanes Type: BLOOD SPECIMEN Ordering Facility: [facility] Address: [address] [place] [address] Result Comment: <8 m IU/mL: No serological evidence of immunity to Hepatitis B Virus. >/= 8 to <12 mIU/mL: No serological evidence of immunity to Hepatitis B Virus. >/= 12 mIU/mL: Consistent with serological evidence of immunity to Hepatitis B Virus. Performed By: #### 2 4323-8 #### [facility] CLIA [id number] [address] [place] [address] [place] HBV surface Ab Ser Qlon 02-02 HBV surface Ab Ql (S) Negative Normal [facility] Comment on above: Order Comment: Speci men Type: BLOOD SPECIMEN Ordering Facility: [facility] Address: [address] [place] [address] Result Comment: No s erological evidence of immunity to Hepatitis B Virus. Performed By: #### 2 4323-8 #### [facility] CLIA [id number] [address] [place] [address] [place] HBV surface Ag Ser Qlon 02-02 HBV surface Ag Ql (S) Negative Normal Negative [facility] Comment on above: Order Comment: Speci men Type: BLOOD SPECIMEN Ordering Facility: [facility] Address: [address] [place] [address] Performed By: #### 2 4323-8 #### [facility] CLIA [id number] [address] [place], [place] [address] [place] [address] [place] HCV Ab Ser Qlon 02-11-2025 HCV Ab Ql (S) Negative Normal Negative [facility] Comment on above: Order Comment: Speci men Type: BLOOD SPECIMEN Ordering Facility: [facility] Address: [address] [place] [address] Result Comment: The result suggests no evidence of infection with Hepatitis C virus. Should recent infection be suspected, repeat testing may be considered 4-6 weeks after this draw. Performed By: #### 1 988-5 #### [facility] CLIA [id number] [address] [place] [address] [place] Pulmonary Visit Reporton Pulmonary Visit Report Normal [facility] Basic Metabolic Profile (BMP )on 02-06-2025 BUN/CRE 30.1 RATIO High 10-20 [facility] Comment on above: Performed By: #### L 500.2500 ####[facility] [address] [facility]. [place] [address] Calcium [Mass/Vol] 10.0 mg/dL Normal 7.6-11.0 [facility] Comment on above: Performed By: #### L 500.2500 ####[facility] [address] [facility]. [place] [id number] Chloride [Moles/Vol] 103 mmol/L Normal 98-108 [facility] Comment on above: Performed By: #### L 500.2500 ####[facility] [address] [facility]. [facility] [address] CO2 [Moles/Vol] 27.2 mmol/L Normal 21.0-32.0 [facility] Comment on above: Performed By: #### L 500.2500 ####[facility] [address] [place], [address] Creatinine [Mass/Vol] 0.94 mg/dL Normal 0.70-1.20 [facility] Comment on above: Performed By: #### L 500.2500 ####[facility] [address] [place], [address] GAP 11 Normal 5-15 [facility] Comment on above: Performed By: #### L 500.2500 ####[facility] [address] [place], [address] GFR/1.73 sq M.predicted among non-blacks MDRD (S/P/Bld) [Vol rate/Area] 65 mL/min/{1.73_m2} Normal >60 [facility] Comment on above: Result Comment: mL/m in/1.73m2 CKD-EPI Creatinine Equation (2020) Performed By: #### L 500.2500 ####[facility] [address] [place], [address] Glucose [Mass/Vol] 103 mg/dL High 70-99 [facility] Comment on above: Performed By: #### L 500.2500 ####[facility] [address] [place], [address] Potassium [Moles/Vol] 4.5 mmol/L Normal 3.3-5.1 [facility] Comment on above: Performed By: #### L 500.2500 ####[facility] [address] [place], [address] Sodium [Moles/Vol] 141 mmol/L Normal 133-145 [facility] Comment on above: Performed By: #### L 500.2500 ####[facility] [address] [place], [address] Urea nitrogen [Mass/Vol] 28 mg/dL High 4-19 [facility] Comment on above: Performed By: #### L 500.2500 ####[facility] [address] [place], [address] OT D/C Summaryon 02-04-2025 OT D/C Summary Normal [facility] Low Dose CT Lung Screeningon 01-30-[address] Lung Screening Normal [facility] L/S Spine Min 4 Viewson 01-03 L/S Spine Min 4 Views Normal [facility] Orthopedic Visit Reporton Orthopedic Visit Report Normal [facility] Renal Artery Duplex Ultrasou ndon 01-24-2025 Renal Artery Duplex Ultrasound Normal [facility] Office Visit Reporton 2024 Office Visit Report Normal [facility] Inital Evaluation (1) - PTon 01-22-2025 Inital Evaluation (1) - PT Normal [facility] Orthopedic Visit Reporton Orthopedic Visit Report Normal [facility] Vitamin D 1,25-Dihydroxyon 0 01-18-2025 VIT D 1,25 DIHY 25.9 pg/mL Normal 24.8-81.5 [facility] Comment on above: Result Comment: Perf ormed at: BN - [facility] [address] [id number] Director: Dereck Buchanan MD, Phone: [phone] Performed By: #### L 9394.1876 ####[facility] [address] [place], [place], [address] Upper Ext Joint Only(Routine )on 01-15-2025 Upper Ext Joint Only(Routine) Normal [facility] Neurology Visit Reporton Neurology Visit Report Normal [facility] Basic Metabolic Profile (BMP )on 01-07-2025 BUN/CRE 21.3 RATIO High 10-20 [facility] Comment on above: Performed By: #### L 500.2500 ####[facility] [address] [place], [address] Calcium [Mass/Vol] 9.9 mg/dL Normal 7.6-11.0 [facility] Comment on above: Performed By: #### L 500.2500 ####[facility] [address] [place], [address] Chloride [Moles/Vol] 103 mmol/L Normal 98-108 [facility] Comment on above: Performed By: #### L 500.2500 ####[facility] [address] [place], [address] CO2 [Moles/Vol] 27.7 mmol/L Normal 21.0-32.0 [facility] Comment on above: Performed By: #### L 500.2500 ####[facility] [address] [place], [address] Creatinine [Mass/Vol] 0.92 mg/dL Normal 0.70-1.20 [facility] Comment on above: Performed By: #### L 500.2500 ####[facility] [address] [place], [address] GAP 11 Normal 5-15 [facility] Comment on above: Performed By: #### L 500.2500 ####[facility] [address] [place], [address] GFR/1.73 sq M.predicted among non-blacks MDRD (S/P/Bld) [Vol rate/Area] 67 mL/min/{1.73_m2} Normal >60 [facility] Comment on above: Result Comment: mL/m in/1.73m2 CKD-EPI Creatinine Equation (2020) Performed By: #### L 500.2500 ####[facility] [address] [place], [address] Glucose [Mass/Vol] 92 mg/dL Normal 70-99 [facility] Comment on above: Performed By: #### L 500.2500 ####[facility] [address] [place], [address] Potassium [Moles/Vol] 4.0 mmol/L Normal 3.3-5.1 [facility] Comment on above: Performed By: #### L 500.2500 ####[facility] [address] [place], [address] Sodium [Moles/Vol] 141 mmol/L Normal 133-145 [facility] Comment on above: Performed By: #### L 500.2500 ####[facility] [address] [place], [address] Urea nitrogen [Mass/Vol] 20 mg/dL High 4-19 [facility] Comment on above: Performed By: #### L 500.2500 ####[facility] [address] [place], [address] OT General Evaluationon 05-0 OT General Evaluation Normal [facility] CRPon 01-01-2025 C-REACTIVE PROT < 3.00 Normal 0.0-3.0 [facility] Comment on above: Performed By: #### L 501.6710, L101.9900 ####[facility] [address] [place], [address] Erythrocyte Sed Rateon 01-01 SED RATE 4 mm/hr Normal 0-30 [facility] Comment on above: Performed By: #### L 501.6710, L101.9900 ####[facility] [address] [place], [address] Basic Metabolic Profile (BMP )on 12-29-2024 BUN/CRE 17.5 RATIO Normal 10-20 [facility] Comment on above: Performed By: #### L 500.2500, L100.0100 ####[facility] [address] [place], [address] Calcium [Mass/Vol] 10.4 mg/dL Normal 7.6-11.0 [facility] Comment on above: Performed By: #### L 500.2500, L100.0100 ####[facility] [address] [place], [address] Chloride [Moles/Vol] 102 mmol/L Normal 98-108 [facility] Comment on above: Performed By: #### L 500.2500, L100.0100 ####[facility] [address] [place], [address] CO2 [Moles/Vol] 28.3 mmol/L Normal 21.0-32.0 [facility] Comment on above: Performed By: #### L 500.2500, L100.0100 ####[facility] [address] [place], [address] Creatinine [Mass/Vol] 1.00 mg/dL Normal 0.70-1.20 [facility] Comment on above: Performed By: #### L 500.2500, L100.0100 ####[facility] [address] [place], [address] ECRCL 41.45 ml/min Low 50-250 [facility] Comment on above: Performed By: #### L 500.2500, L100.0100 ####[facility] [address] [place], [address] GAP 12 Normal 5-15 [facility] Comment on above: Performed By: #### L 500.2500, L100.0100 ####[facility] [address] [place], [address] GFR/1.73 sq M.predicted among non-blacks MDRD (S/P/Bld) [Vol rate/Area] 61 mL/min/{1.73_m2} Normal >60 [facility] Comment on above: Result Comment: mL/m in/1.73m2 CKD-EPI Creatinine Equation (2020) Performed By: #### L 500.2500, L100.0100 ####[facility] [address] [place], [address] Glucose [Mass/Vol] 100 mg/dL High 70-99 [facility] Comment on above: Performed By: #### L 500.2500, L100.0100 ####[facility] [address] [place], [address] Potassium [Moles/Vol] 4.0 mmol/L Normal 3.3-5.1 [facility] Comment on above: Performed By: #### L 500.2500, L100.0100 ####[facility] [address] [place], [address] Sodium [Moles/Vol] 142 mmol/L Normal 133-145 [facility] Comment on above: Performed By: #### L 500.2500, L100.0100 ####[facility] [address] [place], [address] Urea nitrogen [Mass/Vol] 18 mg/dL Normal 4-19 [facility] Comment on above: Performed By: #### L 500.2500, L100.0100 ####[facility] [address] [place], [address] CBC W/Diff, Automatedon 04-2 Absolute Lymph 1.72 X10 3/uL Normal 0.83-4.51 [facility] Comment on above: Performed By: #### L 500.2500, L100.0100 ####[facility] [address] [place], [address] Absolute Neut 3.4 X10 3/uL Normal 2.0-7.7 [facility] Comment on above: Performed By: #### L 500.2500, L100.0100 ####[facility] [address] [place], [address] Basophils/100 WBC (Bld) 1.5 % High 0-1 [facility] Comment on above: Performed By: #### L 500.2500, L100.0100 ####[facility] [address] [place], [address] Eosinophils/100 WBC (Bld) 10.6 % High 0-5 [facility] Comment on above: Performed By: #### L 500.2500, L100.0100 ####[facility] [address] [place], [address] Erythrocyte distribution width (RBC) [Ratio] 13.4 % Normal 11.6-14.6 [facility] Comment on above: Performed By: #### L 500.2500, L100.0100 ####[facility] [address] [place], [address] Hematocrit (Bld) [Volume fraction] 45.2 % Normal 37-47 [facility] Comment on above: Performed By: #### L 500.2500, L100.0100 ####[facility] [address] [place], [address] Hemoglobin (Bld) [Mass/Vol] 14.4 g/dL Normal 12.0-15.0 [facility] Comment on above: Performed By: #### L 500.2500, L100.0100 ####[facility] [address] [place], [address] IG% 0.200 Normal 0.0-0.9 [facility] Comment on above: Result Comment: IG% - Immature Granulocytes (promyelocytes, myelocytes andmetamyelocytes) > 1% indicates that a LEFT SHIFT is Present. Performed By: #### L 500.2500, L100.0100 ####[facility] [address] [place], [address] Lymphocytes/100 WBC (Bld) 26.5 % Normal 19-41 [facility] Comment on above: Performed By: #### L 500.2500, L100.0100 ####[facility] [address] [place], [address] MCH (RBC) [Entitic mass] 29.7 pg Normal 27.0-32.0 [facility] Comment on above: Performed By: #### L 500.2500, L100.0100 ####[facility] [address] [place], [address] MCHC (RBC) [Mass/Vol] 31.9 g/dL Low 32-36 [facility] Comment on above: Performed By: #### L 500.2500, L100.0100 ####[facility] [address] [place], [address] MCV (RBC) [Entitic vol] 93.2 fL Normal 81-99 [facility] Comment on above: Performed By: #### L 500.2500, L100.0100 ####[facility] [address] [place], [address] Monocytes/100 WBC (Bld) 8.8 % Normal 0-10 [facility] Comment on above: Performed By: #### L 500.2500, L100.0100 ####[facility] [address] [place], [address] Neutrophils/100 WBC (Bld) 52.4 % Normal 47-70 [facility] Comment on above: Performed By: #### L 500.2500, L100.0100 ####[facility] [address] [place], [address] Nucleated RBC (Bld) [#/Vol] 0 10*3/uL Normal 0-5 [facility] Comment on above: Performed By: #### L 500.2500, L100.0100 ####[facility] [address] [place], [address] Platelet mean volume (Bld) [Entitic vol] 10.8 fL Normal 6.2-12.0 [facility] Comment on above: Performed By: #### L 500.2500, L100.0100 ####[facility] [address] [place], [address] Platelets (Bld) [#/Vol] 230 10*3/uL Normal 150-450 [facility] Comment on above: Performed By: #### L 500.2500, L100.0100 ####[facility] [address] [place], [address] RBC (Bld) [#/Vol] 4.85 10*6/uL Normal 4.2-5.4 [facility] Comment on above: Performed By: #### L 500.2500, L100.0100 ####[facility] [address] [place], [address] RDW SD 45.3 fl High 35.1-43.9 [facility] Comment on above: Performed By: #### L 500.2500, L100.0100 ####[facility] [address] [place], [address] WBC (Bld) [#/Vol] 6.5 10*3/uL Normal 4.4-11.0 [facility] Comment on above: Performed By: #### L 500.2500, L100.0100 ####[facility] [address] [place], [address] CNOVon 12-29-2024 CNOV Office Visit ([facility] ) LELE PANG ([id number]) 1955 F Date Time Provider Department 12/29/24 1:45 PM JOSEFA SERNA [facility] During your visit today, we recorded the following information about you: Josefa Serna APRN.CNP 12/29/2024 1:50 PM Signed Patient came in [...] [J44.89] 05/03/2019 Former smoker [Z87.891] 05/03/2019 Neuropathy ([facility]) [G62.9] 05/03/2019 History of ETOH abuse [F10.11] 05/03/2019 Anxiety and depression [F41.9, F32.A] 05/03/2019 Lumbosacral spondylosis without myelopathy [M47*05/07/2019 Spinal stenosis, lumbar region, without neuroge*05/07/2019 Lumbosacral radiculitis [M54.17] 05/21/2019 Encounter Status:Closed by JOSEFA SERNA on 12/29/24 Normal [facility] CTA Head AND Neck W/ Contras ton 12-29-2024 CTA Head AND Neck W/ Contrast Normal [facility] Emergency Department Summary on 12-29-2024 Emergency Department Summary Normal [facility] Orthopedic Visit Reporton Orthopedic Visit Report Normal [facility] Office Visit Reporton 2024 Office Visit Report Normal [facility] Orthopedic Visit Reporton Orthopedic Visit Report Normal [facility] Dexa Bone Density Studyon Dexa Bone Density Study Normal [facility] Spine Lumbar (Routine)on Spine Lumbar (Routine) Normal [facility] Orthopedic Visit Reporton Orthopedic Visit Report Normal [facility] CNOVon 12-05-2024 CNOV Office Visit ([facility] ) LELE PANG ([id number]) 1955 F Date Time Provider Department 12/05/24 11:00 AM WINNIE HERNANDEZ [facility] During your visit today, we recorded the following information about you: Pulse Blood pressure Weight Height 61/minute 146/95 57.5 kg 1.473 m Winnie Hernandez PA-C 12/05/2024 9:46 PM Signed Rheumatology CONSULTATION Date of Service: 12/05/2024 Patient: Leel Pang Medical Record: [id number] Primary Care Physician: Yady Vera MD Last Rheumatology visit: None at [facility] Referring Provider: Daron Zaidi E Floresita Atkinson [facility] [id number] Lele Pang is here today at request of Dr. Mark specifically for consultation of my opinion in regards to the chief complaint listed below. Correspondence will be shared today via the [employer] electronic health record or through regular mail, where applicable. History of Present Illness Lele is a 69-year-old female with a history of RA, presenting for evaluation and management. She is currently taking leflunomide. Lele is both RF - 34 (09/26/2023) and CCP positive. 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 Arteaga PAST SURGICAL HISTORY OF [...] daily. am (more content not included)... Normal [facility] CNPNon 12-05-2024 CNPN Telephone (RHWSTR) CHANTELLLELE ([id number]) 1955 F Date Time Provider Department 12/05/24 WINNIE HERNANDEZ WSTR During your visit today, we recorded the following information about you: Whit Jang MA 12/05/2024 12:05 PM Signed Message left on [address] at [facility] for past records for this patient to be faxed to this office. Whit Jang MA 12/06/2024 2:49 PM Signed 109 pages of records received via fax from [facility]. Can be found under scanned documents. 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] 05/03/2019 Former smoker [Z87.891] 05/03/2019 Neuropathy ([facility]) [G62.9] 05/03/2019 History of ETOH abuse [F10.11] 05/03/2019 Anxiety and depression [F41.9, F32.A] 05/03/2019 Lumbosacral spondylosis without myelopathy [M47*05/07/2019 Spinal stenosis, lumbar region, without neuroge*05/07/2019 Lumbosacral radiculitis [M54.17] 05/21/2019 Encounter Status:Closed by WHIT JANG on 12/06/24 Normal [facility] Discharge Instructionon 11-03 Discharge Instruction Normal [facility] MR/POSTOP.ANEon 11-26-2024 MR/POSTOP.ANE Normal [facility] MR/QCYGNLZG5iq 11-26-2024 MR/POSTOPAN2 Normal [facility] Operative Reporton Operative Report Normal [facility] Orthopedic Visit Reporton Orthopedic Visit Report Normal [facility] Shoulder min 2 Viewson 11-19 Shoulder min 2 Views Normal [facility] Lumbar Spine 2 or 3 Viewson 11-13-2024 Lumbar Spine 2 or 3 Views Normal [facility] Orthopedic Visit Reporton Orthopedic Visit Report Normal [facility] MR/PAT.ANEon 11-12-2024 MR/PAT.ANE Normal [facility] STAR Comprehensive Panelon ANTI-DNA (DS)AB <1 Normal 0-9 [facility] Comment on above: Result Comment: Nega tive <5 Equivocal 5 - 9 Positive >9 Performed By: #### L 505.7010, L101.9900, L500.4100, L500.4050, L4600.0100, L3100.7870, L3100.5440 ####[facility] [address] [place], [place], [phone] ANTISCLERODERM <0.2 Normal 0.0-0.9 [facility] Comment on above: Performed By: #### L 505.7010, L101.9900, L500.4100, L500.4050, L4600.0100, L3100.7870, L3100.5440 ####[facility] [address] [place], [address] CCP IgG Antibodieson 025 CCP IgG Ab. > 250 High 0-19 [facility] Comment on above: Result Comment: Nega tive <20 Weak positive 20 - 39 Moderate positive 40 - 59 Strong positive >59Performed at: [facility] [place] [id number] Director: Fady Alfaro PhD, Phone: [phone] Performed By: #### L 505.7010, L101.9900, L500.4100, L500.4050, L4600.0100, L3100.7870, L3100.5440 ####[facility] [address] [place], [address] CRP, High Sensitivity [id number] on 10-25-2024 CRP, HIGH SENS 0.36 mg/L Normal 0.00-3.00 [facility] Comment on above: Result Comment: Rela tive Risk for Future Cardiovascular Event Low <1.00 Average 1.00 - 3.00 High >3.00Performed at: [facility] - [facility] [address] [id number] Director: Fady Alfaro PhD, Phone: [phone] Performed By: #### L 505.7010, L101.9900, L500.4100, L500.4050, L4600.0100, L3100.7870, L3100.5440 ####[facility] [address] [place], [address] Neurology Visit Reporton Neurology Visit Report Normal [facility] Comprehensive Metabolic Prof ilon 10-23-2024 Albumin [Mass/Vol] 3.8 g/dL Normal 3.2-5.0 [facility] Comment on above: Performed By: #### L 505.7010, L101.9900, L500.4100, L500.4050, L4600.0100, L3100.7870, L3100.5440 ####[facility] [address] [place], [address] Albumin/Globulin [Mass ratio] 1.1 {ratio} Normal 0.9-2.4 [facility] Comment on above: Performed By: #### L 505.7010, L101.9900, L500.4100, L500.4050, L4600.0100, L3100.7870, L3100.5440 ####[facility] [address] [place], [address] ALK P 71 U/L Normal 45-117 [facility] Comment on above: Performed By: #### L 505.7010, L101.9900, L500.4100, L500.4050, L4600.0100, L3100.7870, L3100.5440 ####[facility] [address] [place], [address] ALT [Catalytic activity/Vol] 38 U/L Normal 13-56 [facility] Comment on above: Performed By: #### L 505.7010, L101.9900, L500.4100, L500.4050, L4600.0100, L3100.7870, L3100.5440 ####[facility] [address] [place], [address] AST [Catalytic activity/Vol] 20 U/L Normal 15-37 [facility] Comment on above: Performed By: #### L 505.7010, L101.9900, L500.4100, L500.4050, L4600.0100, L3100.7870, L3100.5440 ####[facility] [address] [place], [address] Bilirubin [Mass/Vol] 0.50 mg/dL Normal 0.20-1.00 [facility] Comment on above: Result Comment: For patients on eltrombopag therapy, use of Dimension [place] TBIL is not recommended. Performed By: #### L 505.7010, L101.9900, L500.4100, L500.4050, L4600.0100, L3100.7870, L3100.5440 ####[facility] [address] [place], [address] BUN/CRE 24.9 RATIO High 10-20 [facility] Comment on above: Performed By: #### L 505.7010, L101.9900, L500.4100, L500.4050, L4600.0100, L3100.7870, L3100.5440 ####[facility] [address] [place], [address] CA,Total 9.4 mg/dL Normal 8.5-10.1 [facility] Comment on above: Performed By: #### L 505.7010, L101.9900, L500.4100, L500.4050, L4600.0100, L3100.7870, L3100.5440 ####[facility] [address] [place], [address] Chloride [Moles/Vol] 106 mmol/L Normal 98-107 [facility] Comment on above: Performed By: #### L 505.7010, L101.9900, L500.4100, L500.4050, L4600.0100, L3100.7870, L3100.5440 ####[facility] [address] [place], [address] CO2 [Moles/Vol] 26.0 mmol/L Normal 21.0-32.0 [facility] Comment on above: Performed By: #### L 505.7010, L101.9900, L500.4100, L500.4050, L4600.0100, L3100.7870, L3100.5440 ####[facility] [address] [place], [place], [phone] Creatinine [Mass/Vol] 0.92 mg/dL Normal 0.55-1.02 [facility] Comment on above: Result Comment: The validity of the calculated GFR GFRAA in patients over70 years has not been determined. Clinical correlation isessential. Performed By: #### L 505.7010, L101.9900, L500.4100, L500.4050, L4600.0100, L3100.7870, L3100.5440 ####[facility] [address] [place], [address] EST GFR - AA 77 mL/min Normal >60 [facility] Comment on above: Result Comment: Afri can [place] GFR Calc Performed By: #### L 505.7010, L101.9900, L500.4100, L500.4050, L4600.0100, L3100.7870, L3100.5440 ####[facility] [address] [place], [address] GAP 8 Normal 5-15 [facility] Comment on above: Performed By: #### L 505.7010, L101.9900, L500.4100, L500.4050, L4600.0100, L3100.7870, L3100.5440 ####[facility] [address] [place], [address] GFR/1.73 sq M.predicted among non-blacks MDRD (S/P/Bld) [Vol rate/Area] 64 mL/min/{1.73_m2} Normal >60 [facility] Comment on above: Result Comment: Non- GFR Calc Performed By: #### L 505.7010, L101.9900, L500.4100, L500.4050, L4600.0100, L3100.7870, L3100.5440 ####[facility] [address] [place], [address] Globulin (S) [Mass/Vol] 3.4 g/dL Normal 2.2-4.2 [facility] Comment on above: Performed By: #### L 505.7010, L101.9900, L500.4100, L500.4050, L4600.0100, L3100.7870, L3100.5440 ####[facility] [address] [place], [address] Glucose [Mass/Vol] 91 mg/dL Normal 74-106 [facility] Comment on above: Performed By: #### L 505.7010, L101.9900, L500.4100, L500.4050, L4600.0100, L3100.7870, L3100.5440 ####[facility] [address] [place], [address] Potassium [Moles/Vol] 3.7 mmol/L Normal 3.5-5.1 [facility] Comment on above: Performed By: #### L 505.7010, L101.9900, L500.4100, L500.4050, L4600.0100, L3100.7870, L3100.5440 ####[facility] [address] [place], [place], [phone] Sodium [Moles/Vol] 140 mmol/L Normal 136-145 [facility] Comment on above: Performed By: #### L 505.7010, L101.9900, L500.4100, L500.4050, L4600.0100, L3100.7870, L3100.5440 ####[facility] [address] [place], [place], [id number] T PROT 7.2 g/dL Normal 6.4-8.2 [facility] Comment on above: Performed By: #### L 505.7010, L101.9900, L500.4100, L500.4050, L4600.0100, L3100.7870, L3100.5440 ####[facility] [address] [place], [place], [phone] Urea nitrogen [Mass/Vol] 23 mg/dL High 7-18 [facility] Comment on above: Performed By: #### L 505.7010, L101.9900, L500.4100, L500.4050, L4600.0100, L3100.7870, L3100.5440 ####[facility] [address] [place], [place], [id number] Erythrocyte Sed Rateon 10-23 SED RATE 7 mm/hr Normal 0-30 [facility] Comment on above: Performed By: #### L 505.7010, L101.9900, L500.4100, L500.4050, L4600.0100, L3100.7870, L3100.5440 ####[facility] [address] [place], [place], [phone] Lipid Profileon 10-23-2024 Cholesterol [Mass/Vol] 250 mg/dL High 200 [facility] Comment on above: Result Comment: <200 mg/dL Desirable 200-240 mg/dL Borderline >240 mg/dL High Risk Performed By: #### L 505.7010, L101.9900, L500.4100, L500.4050, L4600.0100, L3100.7870, L3100.5440 ####[facility] [address] [place], [address] Cholesterol in HDL [Mass/Vol] 133 mg/dL Normal [facility] Comment on above: Result Comment: The drugs N-Acetylcysteine and Metamizole may falselydepress this assay. Reference Range HDL <40 mg/dL Low HDL Cholesterol HDL >or= 60 mg/dL High HDL Cholesterol Performed By: #### L 505.7010, L101.9900, L500.4100, L500.4050, L4600.0100, L3100.7870, L3100.5440 ####[facility] [address] [place], [address] Cholesterol in LDL [Mass/Vol] 107 mg/dL Normal 0-130 [facility] Comment on above: Performed By: #### L 505.7010, L101.9900, L500.4100, L500.4050, L4600.0100, L3100.7870, L3100.5440 ####[facility] [address] [place], [address] Cholesterol in VLDL [Mass/Vol] 10 mg/dL Normal 5-40 [facility] Comment on above: Performed By: #### L 505.7010, L101.9900, L500.4100, L500.4050, L4600.0100, L3100.7870, L3100.5440 ####[facility] [address] [place], [address] Triglyceride [Mass/Vol] 50 mg/dL Normal [facility] Comment on above: Result Comment: The drugs N-Acetylcysteine and Metamizole may falselydepress this assay.Serum Triglycerides Reference Interval Normal <150 mg/dL Borderline high 150 - 199 mg/dL High 200 - 499 mg/dL Very High > or = 500 mg/dL Performed By: #### L 505.7010, L101.9900, L500.4100, L500.4050, L4600.0100, L3100.7870, L3100.5440 ####[facility] [address] [place], [place], [phone] Rheumatoid Factoron 10-23-19 25 RHEUMATOID FAC 27.0 IU/mL High <15 [facility] Comment on above: Performed By: #### L 505.7010, L101.9900, L500.4100, L500.4050, L4600.0100, L3100.7870, L3100.5440 ####[facility] [address] [place], [place], [phone] Orthopedic Visit Reporton Orthopedic Visit Report Normal [facility] Office Visit Reporton 2024 Office Visit Report Normal [facility] Neurology Visit Reporton Neurology Visit Report Normal [facility] Vitamin B1, Thiamineon 07-29 VIT B1 THIAMINE 94.5 nmol/L Normal 66.5-200.0 [facility] Comment on above: Order Comment: Test( s) 903400-Xha. B1, Whole Bloodwas developed and its performance characteristicsdetermined by [employer]. It has not been cleared or approvedby the Food and Drug Administration. Result Comment: Perf ormed at: [facility] [address] [id number] Director: Dereck Buchanan MD, Phone: [phone] Performed By: #### L 503.0105, L506.0250, L501.9520, L3300.8000, L500.4050, L506.1000, L100.0500 ####[facility] [address] [place], [place], [phone] CBC-Complete Blood Cnt No Di ffon 07-25-2024 Erythrocyte distribution width (RBC) [Ratio] 13.1 % Normal 11.6-14.6 [facility] Comment on above: Order Comment: DR.BA CARCAMO ORDERED CBC,CMP,FOL,TSH,B12, B1MARK ROBERTS ORDERED B12 VITD Performed By: #### L 503.0105, L506.0250, L501.9520, L3300.8000, L500.4050, L506.1000, L100.0500 ####[facility] [address] [place], [address] Hematocrit (Bld) [Volume fraction] 38.6 % Normal 37-47 [facility] Comment on above: Order Comment: DR.BA CARCAMO ORDERED CBC,CMP,FOL,TSH,B12, B1MARK ROBERTS ORDERED B12 VITD Performed By: #### L 503.0105, L506.0250, L501.9520, L3300.8000, L500.4050, L506.1000, L100.0500 ####[facility] [address] [place], [address] Hemoglobin (Bld) [Mass/Vol] 12.2 g/dL Normal 12.0-15.0 [facility] Comment on above: Order Comment: DR.BA CARCAMO ORDERED CBC,CMP,FOL,TSH,B12, B1MARK ROBERTS ORDERED B12 VITD Performed By: #### L 503.0105, L506.0250, L501.9520, L3300.8000, L500.4050, L506.1000, L100.0500 ####[facility] [address] [place], [address] MCH (RBC) [Entitic mass] 28.6 pg Normal 27.0-32.0 [facility] Comment on above: Order Comment: DR.BA CARCAMO ORDERED CBC,CMP,FOL,TSH,B12, B1MARK ROBERTS ORDERED B12 VITD Performed By: #### L 503.0105, L506.0250, L501.9520, L3300.8000, L500.4050, L506.1000, L100.0500 ####[facility] [address] [place], [address] MCHC (RBC) [Mass/Vol] 31.6 g/dL Low 32-36 [facility] Comment on above: Order Comment: DR.BA CARCAMO ORDERED CBC,CMP,FOL,TSH,B12, B1MARK ROBERTS ORDERED B12 VITD Performed By: #### L 503.0105, L506.0250, L501.9520, L3300.8000, L500.4050, L506.1000, L100.0500 ####[facility] [address] [place], [address] MCV (RBC) [Entitic vol] 90.6 fL Normal 81-99 [facility] Comment on above: Order Comment: DR.BA CARCAMO ORDERED CBC,CMP,FOL,TSH,B12, B1MARK ROBERTS ORDERED B12 VITD Performed By: #### L 503.0105, L506.0250, L501.9520, L3300.8000, L500.4050, L506.1000, L100.0500 ####[facility] [address] [place], [address] Platelet mean volume (Bld) [Entitic vol] 10.4 fL Normal 6.2-12.0 [facility] Comment on above: Order Comment: DR.BA CARCAMO ORDERED CBC,CMP,FOL,TSH,B12, B1MARK ROBERTS ORDERED B12 VITD Performed By: #### L 503.0105, L506.0250, L501.9520, L3300.8000, L500.4050, L506.1000, L100.0500 ####[facility] [address] [place], [address] Platelets (Bld) [#/Vol] 264 10*3/uL Normal 150-450 [facility] Comment on above: Order Comment: DR.BA CARCAMO ORDERED CBC,CMP,FOL,TSH,B12, B1MARK ROBERTS ORDERED B12 VITD Performed By: #### L 503.0105, L506.0250, L501.9520, L3300.8000, L500.4050, L506.1000, L100.0500 ####[facility] [address] [place], [address] RBC (Bld) [#/Vol] 4.26 10*6/uL Normal 4.2-5.4 [facility] Comment on above: Order Comment: DR.BA CARCAMO ORDERED CBC,CMP,FOL,TSH,B12, B1MARK ROBERTS ORDERED B12 VITD Performed By: #### L 503.0105, L506.0250, L501.9520, L3300.8000, L500.4050, L506.1000, L100.0500 ####[facility] [address] [place], [address] RDW SD 42.9 fl Normal 35.1-43.9 [facility] Comment on above: Order Comment: DR.BA CARCAMO ORDERED CBC,CMP,FOL,TSH,B12, B1MARK ROBERTS ORDERED B12 VITD Performed By: #### L 503.0105, L506.0250, L501.9520, L3300.8000, L500.4050, L506.1000, L100.0500 ####[facility] [address] [place], [address] WBC (Bld) [#/Vol] 5.1 10*3/uL Normal 4.4-11.0 [facility] Comment on above: Order Comment: DR.BA CARCAMO ORDERED CBC,CMP,FOL,TSH,B12, B1MARK ROBERTS ORDERED B12 VITD Performed By: #### L 503.0105, L506.0250, L501.9520, L3300.8000, L500.4050, L506.1000, L100.0500 ####[facility] [address] [place], [address] Comprehensive Metabolic Prof wvjuvencio 07-25-2024 Albumin [Mass/Vol] 3.7 g/dL Normal 3.2-5.0 [facility] Comment on above: Order Comment: DR.BA CARCAMO ORDERED CBC,CMP,FOL,TSH,B12, B1MARK ROBERTS ORDERED B12 VITDN Performed By: #### L 503.0105, L506.0250, L501.9520, L3300.8000, L500.4050, L506.1000, L100.0500 ####[facility] [address] [place], [address] Albumin/Globulin [Mass ratio] 1.2 {ratio} Normal 0.9-2.4 [facility] Comment on above: Order Comment: DR.BA CARCAMO ORDERED CBC,CMP,FOL,TSH,B12, B1MARK ROBERTS ORDERED B12 VITDN Performed By: #### L 503.0105, L506.0250, L501.9520, L3300.8000, L500.4050, L506.1000, L100.0500 ####[facility] [address] [place], [address] ALK P 78 U/L Normal 45-117 [facility] Comment on above: Order Comment: DR.BA CARCAMO ORDERED CBC,CMP,FOL,TSH,B12, B1MARK ROBERTS ORDERED B12 VITDN Performed By: #### L 503.0105, L506.0250, L501.9520, L3300.8000, L500.4050, L506.1000, L100.0500 ####[facility] [address] [facility], [address] ALT [Catalytic activity/Vol] 23 U/L Normal 13-56 [facility] Comment on above: Order Comment: DR.BA CARCAMO ORDERED CBC,CMP,FOL,TSH,B12, B1MARK ROBERTS ORDERED B12 VITDN Performed By: #### L 503.0105, L506.0250, L501.9520, L3300.8000, L500.4050, L506.1000, L100.0500 ####[facility] [address] [facility], [address] AST [Catalytic activity/Vol] 19 U/L Normal 15-37 [facility] Comment on above: Order Comment: DR.BA CARCAMO ORDERED CBC,CMP,FOL,TSH,B12, B1MARK ROBERTS ORDERED B12 VITDN Performed By: #### L 503.0105, L506.0250, L501.9520, L3300.8000, L500.4050, L506.1000, L100.0500 ####[facility] [address] [place], [address] Bilirubin [Mass/Vol] 0.50 mg/dL Normal 0.20-1.00 [facility] Comment on above: Order Comment: DR.BA CARCAMO ORDERED CBC,CMP,FOL,TSH,B12, B1MARK ROBERTS ORDERED B12 VITDN Result Comment: For patients on eltrombopag therapy, use of Dimension [place] TBIL is not recommended. Performed By: #### L 503.0105, L506.0250, L501.9520, L3300.8000, L500.4050, L506.1000, L100.0500 ####[facility] [address] [place], [address] BUN/CRE 17.9 RATIO Normal 10-20 [facility] Comment on above: Order Comment: DR.BA CARCAMO ORDERED CBC,CMP,FOL,TSH,B12, B1MARK ROBERTS ORDERED B12 VITDN Performed By: #### L 503.0105, L506.0250, L501.9520, L3300.8000, L500.4050, L506.1000, L100.0500 ####[facility] [address] [place], [address] CA,Total 9.3 mg/dL Normal 8.5-10.1 [facility] Comment on above: Order Comment: DR.BA CARCAMO ORDERED CBC,CMP,FOL,TSH,B12, B1MARK ROBERTS ORDERED B12 VITDN Performed By: #### L 503.0105, L506.0250, L501.9520, L3300.8000, L500.4050, L506.1000, L100.0500 ####[facility] [address] [place], [address] Chloride [Moles/Vol] 107 mmol/L Normal 98-107 [facility] Comment on above: Order Comment: DR.BA CARCAMO ORDERED CBC,CMP,FOL,TSH,B12, B1MARK ROBERTS ORDERED B12 VITDN Performed By: #### L 503.0105, L506.0250, L501.9520, L3300.8000, L500.4050, L506.1000, L100.0500 ####[facility] [address] [place], [address] CO2 [Moles/Vol] 26.0 mmol/L Normal 21.0-32.0 [facility] Comment on above: Order Comment: DR.BA CARCAMO ORDERED CBC,CMP,FOL,TSH,B12, B1MARK ROBERTS ORDERED B12 VITDN Performed By: #### L 503.0105, L506.0250, L501.9520, L3300.8000, L500.4050, L506.1000, L100.0500 ####[facility] [address] [place], [address] Creatinine [Mass/Vol] 0.90 mg/dL Normal 0.55-1.02 [facility] Comment on above: Order Comment: DR.BA CARCAMO ORDERED CBC,CMP,FOL,TSH,B12, B1MARK ROBERTS ORDERED B12 VITDN Result Comment: The validity of the calculated GFR GFRAA in patients over70 years has not been determined. Clinical correlation isessential. Performed By: #### L 503.0105, L506.0250, L501.9520, L3300.8000, L500.4050, L506.1000, L100.0500 ####[facility] [address] [place], [address] EST GFR - AA 80 mL/min Normal >60 [facility] Comment on above: Order Comment: DR.BA CARCAMO ORDERED CBC,CMP,FOL,TSH,B12, B1MARK ROBERTS ORDERED B12 VITDN Result Comment: Afri can [place] GFR Calc Performed By: #### L 503.0105, L506.0250, L501.9520, L3300.8000, L500.4050, L506.1000, L100.0500 ####[facility] [address] [place], [address] GAP 6 Normal 5-15 [facility] Comment on above: Order Comment: DR.BA CARCAMO ORDERED CBC,CMP,FOL,TSH,B12, B1MARK ROBERTS ORDERED B12 VITDN Performed By: #### L 503.0105, L506.0250, L501.9520, L3300.8000, L500.4050, L506.1000, L100.0500 ####[facility] [address] [place], [address] GFR/1.73 sq M.predicted among non-blacks MDRD (S/P/Bld) [Vol rate/Area] 66 mL/min/{1.73_m2} Normal >60 [facility] Comment on above: Order Comment: DR.BA CARCAMO ORDERED CBC,CMP,FOL,TSH,B12, B1MARK ROBERTS ORDERED B12 VITDN Result Comment: Non- GFR Calc Performed By: #### L 503.0105, L506.0250, L501.9520, L3300.8000, L500.4050, L506.1000, L100.0500 ####[facility] [address] [facility], [address] Globulin (S) [Mass/Vol] 3.2 g/dL Normal 2.2-4.2 [facility] Comment on above: Order Comment: DR.BA CARCAMO ORDERED CBC,CMP,FOL,TSH,B12, B1MARK ROBERTS ORDERED B12 VITDN Performed By: #### L 503.0105, L506.0250, L501.9520, L3300.8000, L500.4050, L506.1000, L100.0500 ####[facility] [address] [place], [address] Glucose [Mass/Vol] 105 mg/dL Normal 74-106 [facility] Comment on above: Order Comment: DR.BA CARCAMO ORDERED CBC,CMP,FOL,TSH,B12, B1MARK ROBERTS ORDERED B12 VITDN Result Comment: Fast ing Glucose result from 100 to 125 mg/dLsuggests IMPAIRED HOMEOSTASIS per A.D.A. criteria. Performed By: #### L 503.0105, L506.0250, L501.9520, L3300.8000, L500.4050, L506.1000, L100.0500 ####[facility] [address] [place], [address] Potassium [Moles/Vol] 3.4 mmol/L Low 3.5-5.1 [facility] Comment on above: Order Comment: DR.BA CARCAMO ORDERED CBC,CMP,FOL,TSH,B12, B1MARK ROBERTS ORDERED B12 VITDN Performed By: #### L 503.0105, L506.0250, L501.9520, L3300.8000, L500.4050, L506.1000, L100.0500 ####[facility] [address] [place], [address] Sodium [Moles/Vol] 139 mmol/L Normal 136-145 [facility] Comment on above: Order Comment: DR.BA CARCAMO ORDERED CBC,CMP,FOL,TSH,B12, B1MARK ROBERTS ORDERED B12 VITDN Performed By: #### L 503.0105, L506.0250, L501.9520, L3300.8000, L500.4050, L506.1000, L100.0500 ####[facility] [address] [place], [address] T PROT 6.9 g/dL Normal 6.4-8.2 [facility] Comment on above: Order Comment: DR.BA CARCAMO ORDERED CBC,CMP,FOL,TSH,B12, B1MARK ROBERTS ORDERED B12 VITDN Performed By: #### L 503.0105, L506.0250, L501.9520, L3300.8000, L500.4050, L506.1000, L100.0500 ####[facility] [address] [place], [address] Urea nitrogen [Mass/Vol] 16 mg/dL Normal 7-18 [facility] Comment on above: Order Comment: DR.BA CARCAMO ORDERED CBC,CMP,FOL,TSH,B12, B1MARK ROBERTS ORDERED B12 VITDN Performed By: #### L 503.0105, L506.0250, L501.9520, L3300.8000, L500.4050, L506.1000, L100.0500 ####[facility] [address] [place], [address] Folates, (Folic Acid)on 07-06 FOLATES > 100.00 High 3.1-55.4 [facility] Comment on above: Order Comment: DR.BA CARCAMO ORDERED CBC,CMP,FOL,TSH,B12, B1MARK ROBERTS ORDERED B12 VITDN Performed By: #### L 503.0105, L506.0250, L501.9520, L3300.8000, L500.4050, L506.1000, L100.0500 ####[facility] [address] [place], [address] Thoracic Spine 3 Viewson Thoracic Spine 3 Views Normal [facility] Thyroid Stim Hormone (TSH)on 07-25-2024 TSH 0.678 uIU/mL Normal 0.358-3.740 [facility] Comment on above: Order Comment: DR.BA CARCAMO ORDERED CBC,CMP,FOL,TSH,B12, B1MARK ROBERTS ORDERED B12 VITDN Performed By: #### L 503.0105, L506.0250, L501.9520, L3300.8000, L500.4050, L506.1000, L100.0500 ####[facility] [address] [place], [address] Vitamin B12on 07-25-2024 Cobalamin (Vitamin B12) [Mass/Vol] pg/mL High 211-911 [facility] Comment on above: Order Comment: DR.BA CARCAMO ORDERED CBC,CMP,FOL,TSH,B12, B1MARK ROBERTS ORDERED B12 VITD Performed By: #### L 503.0105, L506.0250, L501.9520, L3300.8000, L500.4050, L506.1000, L100.0500 ####[facility] [address] [place], [address] Vitamin D,25 Hydroxyon 07-25 Vitamin D 25-OH 103.8 ng/mL Normal [facility] Comment on above: Order Comment: DR.BA CARCAMO [...] D test results. Performed By: #### L 503.0105, L506.0250, L501.9520, L3300.8000, L500.4050, L506.1000, L100.0500 ####[facility] [address] [place], [address] XR SHOULDER GENERAL 3V OR MO RE AP/TRUE AP/OTHER RIGHTon 11-25-2022 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 DIVISION OF RADIOLOGY Provider, [facility] - 11/25/2022 * * *Final [...] joint. 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 Transcribe Date/Time: Nov 25 2022 4:36P Dictated by : BEV MONTIEL MD This examination was interpreted and the report reviewed and electronically signed by: BEV MONTIEL MD on Nov 25 2022 4:39PM EST [facility] Radiology Study observation (narrative) [facility] XR Shoulder - right 3 ViewsO rdered By: [facility] Provider on 11-25-2022 [facility] XR FOOT MINIMUM 3 VIEWS LEFT on [...] 09/23/2022 6:50:07 PM Ordering Provider: ERICK Rodríguez [facility] ([place]) Basophil percentageon 2021 Chloride [Moles/Vol] 107 mmol/L 98-107 [facility] Work Phone: Glucose [Mass/Vol] 109 mg/dL 74-106 [facility] Work Phone: Comment on above: Fasting Glucose resu lt from 100 to 125 mg/dL suggests IMPAIRED HOMEOSTASIS per A.D.A. criteria. Potassium [Moles/Vol] 3.4 mmol/L 3.5-5.1 [facility] Work Phone: Sodium [Moles/Vol] 139 mmol/L 136-145 [facility] Work Phone: Laboratory - Chemistry and C hemistry - challengeon 07-22-2022 CO2 [Moles/Vol] 28.0 mmol/L 21.0-32.0 [facility] Work Phone: Free T4 [Mass/Vol] 0.93 ng/dL 0.76-1.46 [facility] Work Phone: Urea nitrogen/Creatini ne [Mass ratio] 25.9 mg/mg 10-20 [facility] Work Phone: No Panel Informationon 07-22 Estimated GFR (MDRD) Amer 115 mL/min >60 [facility] Work Phone: Comment on above: GFR Calc Estimated GFR (MDRD) Non-Af Amer 95 mL/min >60 [facility] Work Phone: Comment on above: Non- GFR Calc Thyroid Stimulating Hormone (TSH) 1.40 uIU/mL 0.358-3.74 [facility] Work Phone: Serum or plasma calcium kaalni urement (mass/volume)on 07-22-2022 Calcium [Mass/Vol] 9.8 mg/dL 8.5-10.1 [facility] Work Phone: Serum or plasma creatinine m easurement (mass/volume)on 07-22-2022 Creatinine [Mass/Vol] 0.66 mg/dL 0.55-1.02 [facility] Work Phone: Comment on above: The validity of the calculated GFR & GFRAA in patients over 70 years has not been determined. Clinical correlation is essential. Serum or plasma urea nitroge n measurement (mass/volume)on 07-22-2022 Urea nitrogen [Mass/Vol] 17 mg/dL - [facility] Work Phone: Thin prep Papanicolaou smear with manual screeningon 07-22-2022 Thin prep Papanicolaou smear with manual screening 4 5-15 [facility] Work Phone: Absolute lymphocyte counton 06-14-2022 Lymphocytes Auto (Unsp spec) [#/Vol] 3.02 10*3/uL 0.83-4.51 [facility] Work Phone: Basophil percentageon 2021 Basophils/100 WBC (Bld) 0.5 % 0-1 [facility] Work Phone: Eosinophils/100 WBC (Bld) 0.3 % 0-5 [facility] Work Phone: Neutrophils (Bld) [#/Vol] 5.3 10*3/uL 2.0-7.7 [facility] Work Phone: Neutrophils/100 WBC (Bld) 57.8 % 47-70 [facility] Work Phone: WBC (Bld) [#/Vol] 9.1 10*3/uL 4.4-11.0 [facility] Work Phone: Blood erythrocytes count (nu mber/volume)on 06-14-2022 RBC (Bld) [#/Vol] 4.79 10*6/uL 4.2-5.4 [facility] Work Phone: [phone] Blood hemoglobin measurement (mass/volume)on 06-14-2022 Hemoglobin (Bld) [Mass/Vol] 14.1 g/dL 12.0-15.0 [facility] Work Phone: [phone] Blood lymphocytes/100 leukoc yteson 06-14-2022 Lymphocytes/100 WBC (Bld) 33.1 % 19-41 [facility] Work Phone: [phone] Blood monocytes/100 leukocyt eson 06-14-2022 Monocytes/100 WBC (Bld) 7.8 % 0-10 [facility] Work Phone: [phone] Blood platelet mean volumeon 06-14-2022 Platelet mean volume (Bld) [Entitic vol] 11.1 fL 6.2-12.0 [facility] Work Phone: [phone] Determination of erythrocyte mean corpuscular volume (MCV)on 06-14-2022 MCV (RBC) [Entitic vol] 91.9 fL 81-99 [facility] Work Phone: [phone] Hematocrit Auto (Bld) [Volum e fraction]on 06-14-2022 Hematocrit (Bld) [Volume fraction] 44.0 % 37-47 [facility] Work Phone: [phone] Laboratory - Chemistry and C hemistry - challengeon 06-14-2022 ALT [Catalytic activity/Vol] 23 U/L 13-56 [facility] Work Phone: [phone] Laboratory - Hematology and Cell countson 06-14-2022 Erythrocyte distribution width (RBC) [Entitic vol] 43.8 fL 35.1-43.9 [facility] Work Phone: [phone] Erythrocyte distribution width (RBC) [Ratio] 12.9 % 11.6-14.6 [facility] Work Phone: [phone] Immature granulocytes/100 WBC (Bld) 0.500 % 0.0-0.9 [facility] Work Phone: Comment on above: IG% - Immature Granu locytes (promyelocytes, myelocytes and metamyelocytes) > 1% indicates that a LEFT SHIFT is Present. MCH (RBC) [Entitic mass] 29.4 pg 27.0-32.0 [facility] Work Phone: Nucleated RBC/100 WBC (Bld) [Ratio] 0 % 0-5 [facility] Work Phone: MCHC Auto (RBC) [Mass/Vol]on 06-14-2022 MCHC (RBC) [Mass/Vol] 32.0 g/dL 32-36 [facility] Work Phone: No Panel Informationon 06-14 Estimated GFR (MDRD) Amer 107 mL/min >60 [facility] Work Phone: Comment on above: GFR Calc Estimated GFR (MDRD) Non-Af Amer 88 mL/min >60 [facility] Work Phone: Comment on above: Non- GFR Calc Platelets bldon 06-14-2022 Platelets (Bld) [#/Vol] 283 10*3/uL 150-450 [facility] Work Phone: Serum or plasma C reactive p rotein measurement (mass/volume)on 06-14-2022 CRP [Mass/Vol] 3.14 mg/L 0.0-3.0 [facility] Work Phone: Comment on above: C-Reactive Protein ( CRP) provides useful information for thediagnosis, therapy and monitoring of inflammatory processesand associated diseases. For the evaluation of Relative Riskfor Cardiovascular Disease, a High Sensitivity CRP (HSCRP)should be ordered. Serum or plasma albumin kalani urement (mass/volume)on 06-14-2022 Albumin [Mass/Vol] 3.5 g/dL 3.2-5.0 [facility] Work Phone: Serum or plasma creatinine m easurement (mass/volume)on 06-14-2022 Creatinine [Mass/Vol] 0.70 mg/dL 0.55-1.02 [facility] Work Phone: Comment on above: The validity of the calculated GFR & GFRAA in patients over 70 years has not been determined. Clinical correlation is essential. Serum or plasma urea nitroge n measurement (mass/volume)on 06-14-2022 Urea nitrogen [Mass/Vol] 15 mg/dL 7-18 [facility] Work Phone: Thin prep Papanicolaou smear with manual screeningon 06-14-2022 Thin prep Papanicolaou smear with manual screening 9 U/L 15-37 [facility] Work Phone: Absolute lymphocyte counton 02-02-2022 Lymphocytes Auto (Unsp spec) [#/Vol] 2.04 10*3/uL 0.83-4.51 [facility] Work Phone: Basophil percentageon 2021 Basophils/100 WBC (Bld) 1.3 % 0-1 [facility] Work Phone: Eosinophils/100 WBC (Bld) 8.9 % 0-5 [facility] Work Phone: Neutrophils (Bld) [#/Vol] 2.7 10*3/uL 2.0-7.7 [facility] Work Phone: Neutrophils/100 WBC (Bld) 44.2 % 47-70 [facility] Work Phone: WBC (Bld) [#/Vol] 6.1 10*3/uL 4.4-11.0 [facility] Work Phone: Blood erythrocytes count (nu mber/volume)on 02-02-2022 RBC (Bld) [#/Vol] 4.95 10*6/uL 4.2-5.4 [facility] Work Phone: Blood hemoglobin measurement (mass/volume)on 02-02-2022 Hemoglobin (Bld) [Mass/Vol] 14.4 g/dL 12.0-15.0 [facility] Work Phone: Blood lymphocytes/100 leukoc yteson 02-02-2022 Lymphocytes/100 WBC (Bld) 33.6 % 19-41 [facility] Work Phone: [phone] Blood monocytes/100 leukocyt eson 02-02-2022 Monocytes/100 WBC (Bld) 11.8 % 0-10 [facility] Work Phone: [phone] Blood platelet mean volumeon 02-02-2022 Platelet mean volume (Bld) [Entitic vol] 10.5 fL 6.2-12.0 [facility] Work Phone: [phone] Determination of erythrocyte mean corpuscular volume (MCV)on 02-02-2022 MCV (RBC) [Entitic vol] 91.5 fL 81-99 [facility] Work Phone: [phone] Hematocrit Auto (Bld) [Volum e fraction]on 02-02-2022 Hematocrit (Bld) [Volume fraction] 45.3 % 37-47 [facility] Work Phone: [phone] Laboratory - Chemistry and C hemistry - challengeon 02-02-2022 ALT [Catalytic activity/Vol] 27 U/L 13-56 [facility] Work Phone: [phone] Laboratory - Hematology and Cell countson 02-02-2022 Erythrocyte distribution width (RBC) [Entitic vol] 45.3 fL 35.1-43.9 [facility] Work Phone: [phone] Erythrocyte distribution width (RBC) [Ratio] 13.4 % 11.6-14.6 [facility] Work Phone: [phone] Immature granulocytes/100 WBC (Bld) 0.200 % 0.0-0.9 [facility] Work Phone: [phone] Comment on above: IG% - Immature Granu locytes (promyelocytes, myelocytes and metamyelocytes) > 1% indicates that a LEFT SHIFT is Present. MCH (RBC) [Entitic mass] 29.1 pg 27.0-32.0 [facility] Work Phone: [phone] Nucleated RBC/100 WBC (Bld) [Ratio] 0 % 0-5 [facility] Work Phone: [phone] MCHC Auto (RBC) [Mass/Vol]on 02-02-2022 MCHC (RBC) [Mass/Vol] 31.8 g/dL 32-36 [facility] Work Phone: No Panel Informationon 02-02 Estimated GFR (MDRD) Amer 86 mL/min >60 [facility] Work Phone: Comment on above: GFR Calc Estimated GFR (MDRD) Non-Af Amer 71 mL/min >60 [facility] Work Phone: Comment on above: Non- GFR Calc Platelets bldon 02-02-2022 Platelets (Bld) [#/Vol] 254 10*3/uL 150-450 [facility] Work Phone: Serum or plasma C reactive p rotein measurement (mass/volume)on 02-02-2022 CRP [Mass/Vol] mg/L 0.0-3.0 [facility] Work Phone: Comment on above: C-Reactive Protein ( CRP) provides useful information for thediagnosis, therapy and monitoring of inflammatory processesand associated diseases. For the evaluation of Relative Riskfor Cardiovascular Disease, a High Sensitivity CRP (HSCRP)should be ordered. Serum or plasma albumin kalani urement (mass/volume)on 02-02-2022 Albumin [Mass/Vol] 3.8 g/dL 3.2-5.0 [facility] Work Phone: Serum or plasma creatinine m easurement (mass/volume)on 02-02-2022 Creatinine [Mass/Vol] 0.84 mg/dL 0.55-1.02 [facility] Work Phone: Comment on above: The validity of the calculated GFR & GFRAA in patients over 70 years has not been determined. Clinical correlation is essential. Serum or plasma urea nitroge n measurement (mass/volume)on 02-02-2022 Urea nitrogen [Mass/Vol] 23 mg/dL 7-18 [facility] Work Phone: Thin prep Papanicolaou smear with manual screeningon 02-02-2022 Thin prep Papanicolaou smear with manual screening 16 U/L 15-37 [facility] Work Phone: Basophil percentageon 2021 Cholesterol [Mass/Vol] 199 mg/dL <200 [facility] Work Phone: Comment on above: <200 mg/dL Desirable 200-240 mg/dL Borderline >240 mg/dL High Risk Triglyceride [Mass/Vol] 151 mg/dL <199 [facility] Work Phone: Comment on above: The drugs N-Acetylcy steine and Metamizole may falsely depress this assay.Serum Triglycerides Reference Interval Normal <150 mg/dL Borderline high 150 - 199 mg/dL High 200 - 499 mg/dL Very High > or = 500 mg/dL No Panel Informationon 01-26 Vitamin D 25-Hydroxy 75.9 ng/mL [facility] Work Phone: Comment on above: Vitamin D 25(OH) Sta tus Range Deficiency <20 ng/mL (50nmol/L) Insufficiency 20 - 30 ng/mL (50 - 75 nmol/L) Sufficiency 30 - 100 ng/mL (75 - 250 nmol/L) Toxicity >100 ng/mL (>250 nmol/L) Serum or plasma cholesterol in HDL measurement (mass/volume)on 01-26-2022 Cholesterol in HDL [Mass/Vol] 73 mg/dL >40 [facility] Work Phone: Comment on above: The drugs N-Acetylcy steine and Metamizole may falsely depress this assay. Reference Range HDL <40 mg/dL Low HDL Cholesterol HDL >or= 60 mg/dL High HDL Cholesterol Serum or plasma cholesterol in VLDL measurement (mass/volume)on 01-26-2022 Cholesterol in VLDL [Mass/Vol] 30 mg/dL 5-40 [facility] Work Phone: Serum or plasma low density lipoprotein (LDL) cholesterol measurement (mass/volume)on 01-26-2022 Cholesterol in LDL [Mass/Vol] 96 mg/dL 0-130 [facility] Work Phone: [phone] Absolute lymphocyte counton 01-18-2022 Lymphocytes Auto (Unsp spec) [#/Vol] 2.54 10*3/uL 0.83-4.51 [facility] Work Phone: Basophil percentageon 2021 Basophils/100 WBC (Bld) 1.1 % 0-1 [facility] Work Phone: [phone] Bilirubin [Mass/Vol] 0.50 mg/dL 0.20-1.00 [facility] Work Phone: Comment on above: For patients on eltr ombopag therapy, use of Dimension [place] TBIL is not recommended. Chloride [Moles/Vol] 104 mmol/L 98-107 [facility] Work Phone: Eosinophils/100 WBC (Bld) 8.2 % 0-5 [facility] Work Phone: [phone] Glucose [Mass/Vol] 100 mg/dL 74-106 [facility] Work Phone: [phone] Comment on above: Fasting Glucose resu lt from 100 to 125 mg/dL suggests IMPAIRED HOMEOSTASIS per A.D.A. criteria. Neutrophils (Bld) [#/Vol] 2.8 10*3/uL 2.0-7.7 [facility] Work Phone: Neutrophils/100 WBC (Bld) 43.1 % 47-70 [facility] Work Phone: [phone] Potassium [Moles/Vol] 3.6 mmol/L 3.5-5.1 [facility] Work Phone: [phone] Protein [Mass/Vol] 7.6 g/dL 6.4-8.2 [facility] Work Phone: [phone] Sodium [Moles/Vol] 139 mmol/L 136-145 [facility] Work Phone: WBC (Bld) [#/Vol] 6.5 10*3/uL 4.4-11.0 [facility] Work Phone: Blood erythrocytes count (nu mber/volume)on 01-18-2022 RBC (Bld) [#/Vol] 4.95 10*6/uL 4.2-5.4 [facility] Work Phone: [phone] Blood hemoglobin measurement (mass/volume)on 01-18-2022 Hemoglobin (Bld) [Mass/Vol] 14.4 g/dL 12.0-15.0 [facility] Work Phone: Blood lymphocytes/100 leukoc yteson 01-18-2022 Lymphocytes/100 WBC (Bld) 39.4 % 19-41 [facility] Work Phone: Blood monocytes/100 leukocyt eson 01-18-2022 Monocytes/100 WBC (Bld) 7.9 % 0-10 [facility] Work Phone: Blood platelet mean volumeon 01-18-2022 Platelet mean volume (Bld) [Entitic vol] 10.1 fL 6.2-12.0 [facility] Work Phone: Determination of erythrocyte mean corpuscular volume (MCV)on 01-18-2022 MCV (RBC) [Entitic vol] 91.3 fL 81-99 [facility] Work Phone: Hematocrit Auto (Bld) [Volum e fraction]on 01-18-2022 Hematocrit (Bld) [Volume fraction] 45.2 % 37-47 [facility] Work Phone: Laboratory - Chemistry and C hemistry - challengeon 01-18-2022 ALP [Catalytic activity/Vol] 108 U/L 45-117 [facility] Work Phone: ALT [Catalytic activity/Vol] 25 U/L 13-56 [facility] Work Phone: [phone] CO2 [Moles/Vol] 29.0 mmol/L 21.0-32.0 [facility] Work Phone: Globulin (S) [Mass/Vol] 3.7 g/dL 2.2-4.2 [facility] Work Phone: Urea nitrogen/Creatini ne [Mass ratio] 23.7 mg/mg 10-20 [facility] Work Phone: Laboratory - Hematology and Cell countson 01-18-2022 Erythrocyte distribution width (RBC) [Entitic vol] 45.1 fL 35.1-43.9 [facility] Work Phone: [phone] Erythrocyte distribution width (RBC) [Ratio] 13.3 % 11.6-14.6 [facility] Work Phone: [phone] Immature granulocytes/100 WBC (Bld) 0.300 % 0.0-0.9 [facility] Work Phone: [phone] Comment on above: IG% - Immature Granu locytes (promyelocytes, myelocytes and metamyelocytes) > 1% indicates that a LEFT SHIFT is Present. MCH (RBC) [Entitic mass] 29.1 pg 27.0-32.0 [facility] Work Phone: [phone] Nucleated RBC/100 WBC (Bld) [Ratio] 0.5 % 0-5 [facility] Work Phone: [phone] MCHC Auto (RBC) [Mass/Vol]on 01-18-2022 MCHC (RBC) [Mass/Vol] 31.9 g/dL 32-36 [facility] Work Phone: [phone] Panel Informationon 01-18 Estimated GFR (MDRD) Amer 87 mL/min >60 [facility] Work Phone: [phone] Comment on above: GFR Calc Estimated GFR (MDRD) Non-Af Amer 72 mL/min >60 [facility] Work Phone: [phone] Comment on above: Non- GFR Calc Platelets bldon 01-18-2022 Platelets (Bld) [#/Vol] 261 10*3/uL 150-450 [facility] Work Phone: [phone] Serum or plasma albumin kalani urement (mass/volume)on 01-18-2022 Albumin [Mass/Vol] 3.9 g/dL 3.2-5.0 [facility] Work Phone: [phone] Serum or plasma albumin/glob ulin mass ratioon 01-18-2022 Albumin/Globulin [Mass ratio] 1.1 {ratio} 0.9-2.4 [facility] Work Phone: [phone] Serum or plasma calcium kalani urement (mass/volume)on 01-18-2022 Calcium [Mass/Vol] 9.5 mg/dL 8.5-10.1 [facility] Work Phone: Serum or plasma creatinine m easurement (mass/volume)on 01-18-2022 Creatinine [Mass/Vol] 0.84 mg/dL 0.55-1.02 [facility] Work Phone: Comment on above: The validity of the calculated GFR & GFRAA in patients over 70 years has not been determined. Clinical correlation is essential. Serum or plasma urea nitroge n measurement (mass/volume)on 01-18-2022 Urea nitrogen [Mass/Vol] 20 mg/dL 7-18 [facility] Work Phone: [phone] Thin prep Papanicolaou smear with manual screeningon 01-18-2022 Thin prep Papanicolaou smear with manual screening 15 U/L 15-37 [facility] Work Phone: Thin prep Papanicolaou smear with manual screening 6 5-15 [facility] Work Phone: [phone] Thin prep Papanicolaou smear with manual screening 175 U/L 84-246 [facility] Work Phone: Absolute lymphocyte counton 09-28-2021 Lymphocytes Auto (Unsp spec) [#/Vol] 2.19 10*3/uL 0.83-4.51 [facility] Work Phone: Basophil percentageon 2021 Basophils/100 WBC (Bld) 1.3 % 0-1 [facility] Work Phone: Eosinophils/100 WBC (Bld) 12.4 % 0-5 [facility] Work Phone: Neutrophils (Bld) [#/Vol] 2.2 10*3/uL 2.0-7.7 [facility] Work Phone: Neutrophils/100 WBC (Bld) 39.4 % 47-70 [facility] Work Phone: WBC (Bld) [#/Vol] 5.6 10*3/uL 4.4-11.0 [facility] Work Phone: Blood erythrocytes count (nu mber/volume)on 09-28-2021 RBC (Bld) [#/Vol] 4.77 10*6/uL 4.2-5.4 [facility] Work Phone: [phone] Blood hemoglobin measurement (mass/volume)on 09-28-2021 Hemoglobin (Bld) [Mass/Vol] 13.7 g/dL 12.0-15.0 [facility] Work Phone: [phone] Blood lymphocytes/100 leukoc yteson 09-28-2021 Lymphocytes/100 WBC (Bld) 39.2 % 19-41 [facility] Work Phone: [phone] Blood monocytes/100 leukocyt eson 09-28-2021 Monocytes/100 WBC (Bld) 7.5 % 0-10 [facility] Work Phone: [phone] Blood platelet mean volumeon 09-28-2021 Platelet mean volume (Bld) [Entitic vol] 11.3 fL 6.2-12.0 [facility] Work Phone: [phone] Determination of erythrocyte mean corpuscular volume (MCV)on 09-28-2021 MCV (RBC) [Entitic vol] 91.2 fL 81-99 [facility] Work Phone: [phone] Hematocrit Auto (Bld) [Volum e fraction]on 09-28-2021 Hematocrit (Bld) [Volume fraction] 43.5 % 37-47 [facility] Work Phone: [phone] Laboratory - Chemistry and C hemistry - challengeon 09-28-2021 ALT [Catalytic activity/Vol] 35 U/L 13-56 [facility] Work Phone: [phone] Laboratory - Hematology and Cell countson 09-28-2021 Erythrocyte distribution width (RBC) [Entitic vol] 45.1 fL 35.1-43.9 [facility] Work Phone: [phone] Erythrocyte distribution width (RBC) [Ratio] 13.3 % 11.6-14.6 [facility] Work Phone: [phone] Immature granulocytes/100 WBC (Bld) 0.200 % 0.0-0.9 [facility] Work [phone] Comment on above: IG% - Immature Granu locytes (promyelocytes, myelocytes and metamyelocytes) > 1% indicates that a LEFT SHIFT is Present. MCH (RBC) [Entitic mass] 28.7 pg 27.0-32.0 [facility] Work Phone: [phone] Nucleated RBC/100 WBC (Bld) [Ratio] 0 % 0-5 [facility] Work Phone: [phone] MCHC Auto (RBC) [Mass/Vol]on 09-28-2021 MCHC (RBC) [Mass/Vol] 31.5 g/dL 32-36 [facility] Work Phone: [phone] Panel Informationon 09-28 Estimated GFR (MDRD) Amer 88 mL/min >60 [facility] Work Phone: [phone] Comment on above: GFR Calc Estimated GFR (MDRD) Non-Af Amer 73 mL/min >60 [facility] Work Phone: [phone] Comment on above: Non- GFR Calc Platelets bldon 09-28-2021 Platelets (Bld) [#/Vol] 276 10*3/uL 150-450 [facility] Work Phone: [phone] Serum or plasma C reactive p rotein measurement (mass/volume)on 09-28-2021 CRP [Mass/Vol] mg/L 0.0-3.0 [facility] Work Phone: [phone] Comment on above: C-Reactive Protein ( CRP) provides useful information for thediagnosis, therapy and monitoring of inflammatory processesand associated diseases. For the evaluation of Relative Riskfor Cardiovascular Disease, a High Sensitivity CRP (HSCRP)should be ordered. Serum or plasma albumin kalani urement (mass/volume)on 09-28-2021 Albumin [Mass/Vol] 3.8 g/dL 3.2-5.0 [facility] Work Phone: [phone] Serum or plasma creatinine m easurement (mass/volume)on 09-28-2021 Creatinine [Mass/Vol] 0.83 mg/dL 0.55-1.02 [facility] Work Phone: Comment on above: The validity of the calculated GFR & GFRAA in patients over 70 years has not been determined. Clinical correlation is essential. Serum or plasma urea nitroge n measurement (mass/volume)on 09-28-2021 Urea nitrogen [Mass/Vol] 22 mg/dL 7-18 [facility] Work Phone: Thin prep Papanicolaou smear with manual screeningon 09-28-2021 Thin prep Papanicolaou smear with manual screening 26 U/L 15- [facility] Work Phone: No Panel Informationon 01-05 Miscellaneous Test See comment [facility] Work Phone: Comment on above: TEST RESULT [...] in situ hybridization (FISH) panel (test code 954933) may be considered. Non-Hodgkin lymphoma interphase fluorescence in situ hybridization (FISH) panel (test code 530760). A whole genome SNP microarray-Oncology Reveal (test code 166754) may also be considered to resolve higher resolution imbalances and copy neutral LUIS. Cytogenetic results should be interpreted within the context of a full pathology evaluation which may include flow cytometry, microarray analysis, and molecular genetic testing. Director Review: Comment: Jojo Childers, PhD TESTING PERFORMED AT [facility]. ORIGINAL REPORT ON FILE IN LAB CONTAINS ADDITIONAL TEST SITE INFORMATION. _ ANES Suad 05-21-2019 ANES POST HNO ID: [id number] Author: Rudolph Goel Service: Anesthesiology Author Type: [...] 21, 2019 TIME: 6:03 PM PAGER/CONTACT #: [facility] ANES PREOPon 05-21-2019 ANES PREOP HNO ID: [id number] Author: Rudolph Goel Service: Anesthesiology Author Type: [...] ([facility]) Former Smoker Neuropathy ([facility]) History of Etoh Abuse Anxiety and Depression Lumbosacral Spondylosis Without Myelopathy Spinal Stenosis, Lumbar Region, Without Neurogenic Claudication Lumbosacral Radiculitis History reviewed. No pertinent past medical history. PAST SURGICAL HISTORY Procedure Laterality Date - CARPAL TUNNEL Bilateral - HYSTERECTOMY HX - LUMBAR SPINE FUSION COMBINED 02/2017 L4-S1 [facility] Dr. Arteaga - PAST SURGICAL HISTORY [...] D5W 200 mL (VANCOCIN) 1 g INTRAVENOUS Bullet Lubricant Mixer to OR Delmar Khan 200 mL/hr at [...] May 21, 2019 TIME: 4:03 PM CSN: [id number] [facility] NURSING PROGon 05-21-2019 NURSING PROG HNO ID: [id number] Author: Beryl MullinsRn) JOSE RAMON Velázquez Service: ? Author Type: Registered Nurse Type: Nursing Progress Note Filed: 05/21/2019 7:30 PM Note Text: 190: Pt arrived to Phase II awake, denies need for pain meds at this time. Surgical site to lower MANAGER FINE with glue. 1909: Tolerating hussein silvina and crackers. 1914: Family at bedside 1919: Ambulated with steady gait. 1924: IV removed. 1929 D/C paperwork reviewed. 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 retractor, which was secured to the [...] 22, 2019 TIME: 12:16 PM PAGER/CONTACT #: [facility] PT EDon 05-21-2019 PT ED HNO ID: [id number] Author: Beryl (Rn) JOSE RAMON Velázquez Service: [...] None Electronically Signed By: Beryl Velázquez RN [facility] XR LUMBAR SPECIFY 1Von 05-21 XR [...] on May 21 2019 6:57PM EST [id number] [facility] NURSING PROGon 05-07-2019 NURSING PROG HNO ID: [id number] Author: Donita MullinsRn) JOSE RAMON Goncalves Service: ? Author Type: [...] Goncalves RN May 07, 2019 9:49 AM Normal [facility] Confirm Blood Typeon 019 ABO/RH(D) Positive [facility] HOSPon 05-03-2019 HOSP Patient:Karine Pang MRN: [...] 44.8 % 05/03/2019 46.0 36.0 Progress Notes ([facility]): Josi Mcfadden 05/14/2019 11:38 AM Signed NI [...] to discuss it. Number to return call [phone] Okay to leave a message ? Yes Thank you calling [facility] [place]. You will receive a return call within [...] 05/14/2019 4:09 PM Signed NEUROSURGERY CARE COORDINATION [facility] PRE-OP EDUCATION VISIT ? Met with patient Lele Pang for pre-op education. Reviewed education materials verbally with patient, including pre-operative skin preparation, wound care, post-operative pain management. ? Provided the following education materials to patient: [facility] Spine Surgery [facility] Pre-/Post-Op Instruction packet, NPO/Skin Prep Instructions, Map of [facility] 1st Floor, Nearby Accommodations list, Pain Management After Spine Surgery packet, Preparing for Post-Acute Care Instructions (if applicable): Yes. ? Discussed recommendation for every [facility] patient over the age of 18 to complete Healthcare POA forms prior to surgery. Provided forms to patient: No. Patient completed Healthcare POA in office and forms were scanned to patients record: No. ? Reviewed with patient to report to Pre/Post op services day of surgery: Yes. ? Reviewed with patient [facility] Surgery Pre-Op will call patient after 2 pm the day before to get surgery report time for day of surgery. Provided Pre-Op java front end web developer phone number of [phone] for any questions: Yes. ? Patient made [...] call: 11:25 Number to return call to: [phone] Time Patient is available for return call: anytime Ok to leave a message?: y Nature of call : Patient called, asking for gas voucher form she gave to nurse during Monday's visit, emailed to patient at [email or web address] Erika Kennedy RN, RN 05/01/2019 9:35 AM Signed NEUROSURGERY CARE COORDINATION [facility] QUICK NOTE ? Patient identified by name and date of : Yes ? Spoke to patient ? Reason for call: Gas voucher ? Additional Notes: Patient advised gas voucher received, will email back once signed. No other questions at this time. JOSE RAMON Scott [facility] 05/01/2019 11:55 AM Signed Form signed and emailed back to patient at [email or web address] [email or web address] Caldwell [facility] May 01, 2019 11:55 AM Normal [facility] Type and SCR (30D)on 019 ABO/RH(D) Positive Normal [facility] Vital Signs Date Time Vital Sign Value Performing Clinician Facility 03-06-2025 13:07-0400 Body mass index (BMI) [Ratio] 27.21 kg/m2 Winnie David PA-C Work Phone: [facility] 03-06-2025 13:07-0400 Body weight 59.06 kg Winine David PA-C Work Phone: [facility] 03-06-2025 13:07-0400 Diastolic blood pressure 86 mm[Hg] Winnie David PA-C Work Phone: [facility] 03-06-2025 13:07-0400 Heart rate 77 /min Winnie David PA-C Work Phone: [facility] 03-06-2025 13:07-0400 Respiratory rate 17 /min Winnie David PA-C Work Phone: [facility] 03-06-2025 13:07-0400 SaO2% (BldA) [Mass fraction] 98 % Winnie David PA-C Work Phone: [facility] 03-06-2025 13:07-0400 Systolic blood pressure 143 mm[Hg] Winnie David PA-C Work Phone: [facility] 12-05-2024 11:14-0400 Body height 147.3 cm Winnie David PA-C Work Phone: [facility] 12-05-2024 11:14-0400 Body mass index (BMI) [Ratio] 26.5 kg/m2 Winnie David PA-C Work Phone: [facility] 12-05-2024 11:14-0400 Body weight 57.52 kg Winnie David PA-C Work Phone: [facility] 12-05-2024 11:14-0400 Diastolic blood pressure 95 mm[Hg] Winnie David PA-C Work Phone: [facility] 12-05-2024 11:14-0400 Heart rate 61 /min Winnie David PA-C Work Phone: [facility] 12-05-2024 11:14-0400 SaO2% (BldA) [Mass fraction] 98 % Winnie David PA-C Work Phone: [facility] 12-05-2024 11:14-0400 Systolic blood pressure 146 mm[Hg] Winnie David PA-C Work Phone: [facility] 11-25-2022 16:08-0400 Body temperature 97.11 [degF] Josefa Serna APRN.MUSIC THERAPY SPECIALIST Work Phone: [facility] 11-25-2022 16:08-0400 Body weight 67.04 kg Josefa Serna APRN.MUSIC THERAPY SPECIALIST Work Phone: [facility] 11-25-2022 16:08-0400 Diastolic blood pressure 94 mm[Hg] Josefa Serna APRN.MUSIC THERAPY SPECIALIST Work Phone: [facility] 11-25-2022 16:08-0400 Heart rate 81 /min Josefa Serna APRN.MUSIC THERAPY SPECIALIST Work Phone: [facility] 11-25-2022 16:08-0400 Respiratory rate 18 /min Josefa Serna APRN.MUSIC THERAPY SPECIALIST Work Phone: [facility] 11-25-2022 16:08-0400 SaO2% (BldA) [Mass fraction] 98 % Josefa Serna APRN.MUSIC THERAPY SPECIALIST Work Phone: [facility] 11-25-2022 16:08-0400 Systolic blood pressure 146 mm[Hg] Josefa Mando STENCIL MAKER.MUSIC THERAPY SPECIALIST Work Phone: [facility] 11-08-2022 14:58-0500 Body temperature 97.9 [degF] Lizette Praisler-Wood STENCIL MAKER.MUSIC THERAPY SPECIALIST Work Phone: [facility] 11-08-2022 14:58-0500 Body weight 64.41 kg Lizette Praisler-Wood STENCIL MAKER.MUSIC THERAPY SPECIALIST Work Phone: [facility] 11-08-2022 14:58-0500 Diastolic blood pressure 74 mm[Hg] Lizette Praisler-Wood STENCIL MAKER.MUSIC THERAPY SPECIALIST Work Phone: [facility] 11-08-2022 14:58-0500 Heart rate 68 /min Lizette Praisler-Wood STENCIL MAKER.MUSIC THERAPY SPECIALIST Work Phone: [facility] 11-08-2022 14:58-0500 Respiratory rate 16 /min Lizette Praisler-Wood STENCIL MAKER.MUSIC THERAPY SPECIALIST Work Phone: [facility] 11-08-2022 14:58-0500 SaO2% (BldA) [Mass fraction] 98 % Lizette Praisler-Wood STENCIL MAKER.MUSIC THERAPY SPECIALIST Work Phone: [facility] 11-08-2022 14:58-0500 Systolic blood pressure 120 mm[Hg] Lizette Praisler-Wood STENCIL MAKER.MUSIC THERAPY SPECIALIST Work Phone: [facility] 09-23-2022 18:52-0500 Diastolic Blood Pressure Non-Invasive 86 1 CLAUDIO SMITH MD [facility] 09-23-2022 18:52-0500 Heart rate 80 /min CLAUDIO SMITH MD [facility] 09-23-2022 18:52-0500 Respiratory rate 16 /min CLAUDIO SMITH MD [facility] 09-23-2022 18:52-0500 Systolic Blood Pressure Non-Invasive 119 1 CLAUDIO SMITH MD [facility] 09-23-2022 17:35-0500 Body height 150 cm CLAUDIO SMITH MD [facility] 09-23-2022 17:35-0500 Body temperature 99.5 [degF] CLAUDIO SMITH MD [facility] 09-23-2022 17:35-0500 Body weight 65.9 kg CLAUDIO SMITH MD [facility] 09-23-2022 17:35-0500 Diastolic Blood Pressure Non-Invasive 86 1 CLAUDIO SMITH MD [facility] 09-23-2022 17:35-0500 Heart rate 98 /min CLAUDIO SMITH MD [facility] 09-23-2022 17:35-0500 Respiratory rate 20 /min CLAUDIO SMITH MD [facility] 09-23-2022 17:35-0500 Systolic Blood Pressure Non-Invasive 141 1 CLAUDIO SMITH MD [facility] 07-22-2022 10:58-0500 Body temperature 86.2 [degF] Dr. Yady Vera Work Phone: [facility] Work Phone: 07-22-2022 10:58-0500 Body weight 62.[address] Yady Vera Work Phone: [facility] Work Phone: 07-22-2022 10:58-0500 Diastolic blood pressure 86 mm[Hg] Dr. Yady Vera Work Phone: [facility] Work Phone: 07-22-2022 10:58-0500 Heart rate 64 /min Dr. Yady Vera Work Phone: [facility] Work Phone: 07-22-2022 10:58-0500 Respiratory rate 18 /min Dr. Yady Vera Work Phone: [facility] Work Phone: 07-22-2022 10:58-0500 SaO2% (BldA) [Mass fraction] 98 % Dr. Yady Vera Work Phone: [facility] Work Phone: 07-22-2022 10:58-0500 Systolic blood pressure 138 mm[Hg] Dr. Yady Vera Work Phone: [facility] Work Phone: 04-12-2022 11:10-0400 Body height 149.[address] Yady Vera Work Phone: [facility] Work Phone: 04-12-2022 11:10-0400 Body mass index (BMI) [Ratio] 26.6 kg/m2 Dr. Yady Vera Work Phone: [facility] Work Phone: 04-12-2022 11:10-0400 Body temperature 97 [degF] Dr. Yady Vera Work Phone: [facility] Work Phone: 04-12-2022 11:10-0400 Body weight 59.[address] Yady Vera Work Phone: [facility] Work Phone: 04-12-2022 11:10-0400 Diastolic blood pressure 90 mm[Hg] Dr. Yady Vera Work Phone: [facility] Work Phone: 04-12-2022 11:10-0400 Heart rate 84 /min Dr. Yady Vera Work Phone: [facility] Work Phone: 04-12-2022 11:10-0400 Respiratory rate 16 /min Dr. Yady Vera Work Phone: [facility] Work Phone: 04-12-2022 11:10-0400 SaO2% (BldA) [Mass fraction] 97 % Dr. Yady Vera Work Phone: [facility] Work Phone: 04-12-2022 11:10-0400 Systolic blood pressure 146 mm[Hg] Dr. Yady Vera Work Phone: [facility] Work Phone: 02-17-2022 13:53-0400 Body height 149.[address] Yady Vera Work Phone: [facility] Work Phone: 02-14-2022 12:49-0400 Body mass index (BMI) [Ratio] 27.4 kg/m2 Dr. Yady Vera Work Phone: [facility] Work Phone: 02-14-2022 12:49-0400 Body temperature 97 [degF] Dr. Yady Vera Work Phone: [facility] Work Phone: 02-14-2022 12:49-0400 Body weight 61.[address] Yady Vera Work Phone: [facility] Work Phone: 02-14-2022 12:49-0400 Diastolic blood pressure 84 mm[Hg] Dr. Yady Vera Work Phone: [facility] Work Phone: 02-14-2022 12:49-0400 Heart rate 80 /min Dr. Yady Vera Work Phone: [facility] Work Phone: 02-14-2022 12:49-0400 Respiratory rate 16 /min Dr. Yady Vera Work Phone: [facility] Work Phone: 02-14-2022 12:49-0400 SaO2% (BldA) [Mass fraction] 96 % Dr. Yady Vera Work Phone: [facility] Work Phone: 02-14-2022 12:49-0400 Systolic blood pressure 130 mm[Hg] Dr. Yady Vera Work Phone: [facility] Work Phone: 01-26-2022 14:57-0400 Body mass index (BMI) [Ratio] 28.1 kg/m2 Dr. Yady Vera Work Phone: [facility] Work Phone: 01-26-2022 14:57-0400 Body temperature 97.2 [degF] Dr. Yady Vera Work Phone: [facility] Work Phone: 01-26-2022 14:57-0400 Body weight 63.[address] Yady Vera Work Phone: [facility] Work Phone: 01-26-2022 14:57-0400 Diastolic blood pressure 72 mm[Hg] Dr. Yady Vera Work Phone: [facility] Work Phone: 01-26-2022 14:57-0400 Heart rate 75 /min Dr. Yady Vera Work Phone: [facility] Work Phone: 01-26-2022 14:57-0400 Respiratory rate 16 /min Dr. Yady Vera Work Phone: [facility] Work Phone: 01-26-2022 14:57-0400 SaO2% (BldA) [Mass fraction] 95 % Dr. Yady Vera Work Phone: [facility] Work Phone: 01-26-2022 14:57-0400 Systolic blood pressure 132 mm[Hg] Dr. Yady Vera Work Phone: [facility] Work Phone: 01-26-2022 14:57-0400 Body height 149.[address] Yady Vera Work Phone: [facility] Work Phone: 01-26-2022 14:57-0400 Body mass index (BMI) [Ratio] 28.1 kg/m2 Dr. Yady Vera Work Phone: [facility] Work Phone: 01-26-2022 14:57-0400 Body temperature 97.2 [degF] Dr. Yady Vera Work Phone: [facility] Work Phone: 01-26-2022 14:57-0400 Body weight 63.[address] Yady Vera Work Phone: [facility] Work Phone: 01-26-2022 14:57-0400 Diastolic blood pressure 72 mm[Hg] Dr. Yady Vera Work Phone: [facility] Work Phone: 01-26-2022 14:57-0400 Heart rate 75 /min Dr. Yady Vera Work Phone: [facility] Work Phone: 01-26-2022 14:57-0400 Respiratory rate 16 /min Dr. Yady Vera Work Phone: [facility] Work Phone: 01-26-2022 14:57-0400 SaO2% (BldA) [Mass fraction] 95 % Dr. Yady Vera Work Phone: [facility] Work Phone: 01-26-2022 14:57-0400 Systolic blood pressure 132 mm[Hg] Dr. Yady Vera Work Phone: [facility] Work Phone: 01-25-2022 14:31-0400 Body mass index (BMI) [Ratio] 27.7 kg/m2 Dr. Yady Vera Work Phone: [facility] Work Phone: 01-25-2022 14:31-0400 Body temperature 98.3 [degF] Dr. Yady Vera Work Phone: [facility] Work Phone: 01-25-2022 14:31-0400 Body weight 62.[address] Yady Vera Work Phone: [facility] Work Phone: 01-25-2022 14:31-0400 Diastolic blood pressure 85 mm[Hg] Dr. Yady Vera Work Phone: [facility] Work Phone: 01-25-2022 14:31-0400 Heart rate 63 /min Dr. Yady Vera Work Phone: [facility] Work Phone: 01-25-2022 14:31-0400 Respiratory rate 15 /min Dr. Yady Vera Work Phone: [facility] Work Phone: 01-25-2022 14:31-0400 SaO2% (BldA) [Mass fraction] 95 % Dr. Yady Vera Work Phone: [facility] Work Phone: 01-25-2022 14:31-0400 Systolic blood pressure 135 mm[Hg] Dr. Yady Vera Work Phone: [facility] Work Phone: 01-25-2022 14:31-0400 Body height 149.[address] Yady Vera Work Phone: [facility] Work Phone: 01-25-2022 14:31-0400 Body mass index (BMI) [Ratio] 27.7 kg/m2 Dr. Yady Vera Work Phone: [facility] Work Phone: 01-25-2022 14:31-0400 Body temperature 98.3 [degF] Dr. Yady Vera Work Phone: [facility] Work Phone: 01-25-2022 14:31-0400 Body weight 62.[address] Yady Vera Work Phone: [facility] Work Phone: 01-25-2022 14:31-0400 Diastolic blood pressure 85 mm[Hg] Dr. Yady Vera Work Phone: [facility] Work Phone: 01-25-2022 14:31-0400 Heart rate 63 /min Dr. Yady Vera Work Phone: [facility] Work Phone: 01-25-2022 14:31-0400 Respiratory rate 15 /min Dr. Yady Vera Work Phone: [facility] Work Phone: 01-25-2022 14:31-0400 SaO2% (BldA) [Mass fraction] 95 % Dr. Yady Vera Work Phone: [facility] Work Phone: 01-25-2022 14:31-0400 Systolic blood pressure 135 mm[Hg] Dr. Yady Vera Work Phone: [facility] Work Phone: 12-06-2021 14:15-0400 Body mass index (BMI) [Ratio] 28 kg/m2 Dr. Yady Vera Work Phone: [facility] Work Phone: 12-06-2021 14:15-0400 Body temperature 96.4 [degF] Dr. Yady Vera Work Phone: [facility] Work Phone: 12-06-2021 14:15-0400 Body weight 63.[address] Yady Vera Work Phone: [facility] Work Phone: 12-06-2021 14:15-0400 Diastolic blood pressure 90 mm[Hg] Dr. Yady Vera Work Phone: [facility] Work Phone: 12-06-2021 14:15-0400 Heart rate 86 /min Dr. Yady Vera Work Phone: [facility] Work Phone: 12-06-2021 14:15-0400 Respiratory rate 16 /min Dr. Yady Vera Work Phone: [facility] Work Phone: 12-06-2021 14:15-0400 SaO2% (BldA) [Mass fraction] 98 % Dr. Yady Vera Work Phone: [facility] Work Phone: 12-06-2021 14:15-0400 Systolic blood pressure 146 mm[Hg] Dr. Yady Vera Work Phone: [facility] Work Phone: 12-06-2021 14:15-0400 Body height 149.[address] Yady Vera Work Phone: [facility] Work Phone: 12-06-2021 14:15-0400 Body mass index (BMI) [Ratio] 28 kg/m2 Dr. Yady Vera Work Phone: [facility] Work Phone: 12-06-2021 14:15-0400 Body temperature 96.4 [degF] Dr. Yady Vera Work Phone: [facility] Work Phone: 12-06-2021 14:15-0400 Body weight 63.[address] Yady Vera Work Phone: [facility] Work Phone: 12-06-2021 14:15-0400 Diastolic blood pressure 90 mm[Hg] Dr. Yady Vera Work Phone: [facility] Work Phone: 12-06-2021 14:15-0400 Heart rate 86 /min Dr. Yady Vera Work Phone: [facility] Work Phone: 12-06-2021 14:15-0400 Respiratory rate 16 /min Dr. Yady Vera Work Phone: [facility] Work Phone: 12-06-2021 14:15-0400 SaO2% (BldA) [Mass fraction] 98 % Dr. Yady Vera Work Phone: [facility] Work Phone: 12-06-2021 14:15-0400 Systolic blood pressure 146 mm[Hg] Dr. Yady Vera Work Phone: [facility] Work Phone: 11-26-2021 09:35-0400 Body mass index (BMI) [Ratio] 28.1 kg/m2 Dr. Yady Vera Work Phone: [facility] Work Phone: 11-26-2021 09:35-0400 Body temperature 97.1 [degF] Dr. Yady Vera Work Phone: [facility] Work Phone: 11-26-2021 09:35-0400 Body weight 63.[address] Yady Vera Work Phone: [facility] Work Phone: 11-26-2021 09:35-0400 Diastolic blood pressure 66 mm[Hg] Dr. Yady Vera Work Phone: [facility] Work Phone: 11-26-2021 09:35-0400 Heart rate 66 /min Dr. Yady Vera Work Phone: [facility] Work Phone: 11-26-2021 09:35-0400 Respiratory rate 16 /min Dr. Yady Vera Work Phone: [facility] Work Phone: 11-26-2021 09:35-0400 SaO2% (BldA) [Mass fraction] 97 % Dr. Yady Vera Work Phone: [facility] Work Phone: 11-26-2021 09:35-0400 Systolic blood pressure 110 mm[Hg] Dr. Yady Vera Work Phone: [facility] Work Phone: 11-26-2021 09:35-0400 Body height 149.[address] Yady Vera Work Phone: [facility] Work Phone: 11-26-2021 09:35-0400 Body mass index (BMI) [Ratio] 28.1 kg/m2 Dr. Yady Vera Work Phone: [facility] Work Phone: 11-26-2021 09:35-0400 Body temperature 97.1 [degF] Dr. Yady Vera Work Phone: [facility] Work Phone: 11-26-2021 09:35-0400 Body weight 63.[address] Yady Vera Work Phone: [facility] Work Phone: 11-26-2021 09:35-0400 Diastolic blood pressure 66 mm[Hg] Dr. Yady Vera Work Phone: [facility] Work Phone: 11-26-2021 09:35-0400 Heart rate 66 /min Dr. Yady Vera Work Phone: [facility] Work Phone: 11-26-2021 09:35-0400 Respiratory rate 16 /min Dr. Yady Vera Work Phone: [facility] Work Phone: 11-26-2021 09:35-0400 SaO2% (BldA) [Mass fraction] 97 % Dr. Yady Vera Work Phone: [facility] Work Phone: 11-26-2021 09:35-0400 Systolic blood pressure 110 mm[Hg] Dr. Yady Vera Work Phone: [facility] Work Phone: 11-25-2021 12:54-0400 Body weight 65.[address] Yady Vera Work Phone: [facility] Work Phone: 11-25-2021 12:54-0400 Heart rate 75 /min Dr. Yady Vera Work Phone: [facility] Work Phone: 11-25-2021 12:54-0400 SaO2% (BldA) [Mass fraction] 96 % Dr. Yady Vera Work Phone: [facility] Work Phone: 11-03-2021 14:02-0500 Body mass index (BMI) [Ratio] 28 kg/m2 Dr. Yady Vera Work Phone: [facility] Work Phone: 11-03-2021 14:02-0500 Body temperature 98.6 [degF] Dr. Yady Vera Work Phone: [facility] Work Phone: 11-03-2021 14:02-0500 Body weight 63.[address] Yady Vera Work Phone: [facility] Work Phone: 11-03-2021 14:02-0500 Diastolic blood pressure 86 mm[Hg] Dr. Yady Vera Work Phone: [facility] Work Phone: 11-03-2021 14:02-0500 Heart rate 85 /min Dr. Yady Vera Work Phone: [facility] Work Phone: 11-03-2021 14:02-0500 Respiratory rate 17 /min Dr. Yady Vera Work Phone: [facility] Work Phone: 11-03-2021 14:02-0500 SaO2% (BldA) [Mass fraction] 95 % Dr. Yady Vera Work Phone: [facility] Work Phone: 11-03-2021 14:02-0500 Systolic blood pressure 140 mm[Hg] Dr. Yady Vera Work Phone: [facility] Work Phone: 11-03-2021 13:02-0500 Body mass index (BMI) [Ratio] 28 kg/m2 Dr. Yady Vera Work Phone: [facility] Work Phone: 11-03-2021 13:02-0500 Body temperature 98.6 [degF] Dr. Yady Vera Work Phone: [facility] Work Phone: 11-03-2021 13:02-0500 Body weight 63.[address] Yady Vera Work Phone: [facility] Work Phone: 11-03-2021 13:02-0500 Diastolic blood pressure 86 mm[Hg] Dr. Yady Vera Work Phone: [facility] Work Phone: 11-03-2021 13:02-0500 Heart rate 85 /min Dr. Yady Vera Work Phone: [facility] Work Phone: 11-03-2021 13:02-0500 Respiratory rate 17 /min Dr. Yady Vera Work Phone: [facility] Work Phone: 11-03-2021 13:02-0500 SaO2% (BldA) [Mass fraction] 95 % Dr. Yady Vera Work Phone: [facility] Work Phone: 11-03-2021 13:02-0500 Systolic blood pressure 140 mm[Hg] Dr. Yady Vera Work Phone: [facility] Work Phone: 09-21-2021 13:53-0500 Body mass index (BMI) [Ratio] 28.5 kg/m2 Dr. Yady Vera Work Phone: [facility] Work Phone: 09-21-2021 13:53-0500 Body temperature 97.7 [degF] Dr. Yady Vera Work Phone: [facility] Work Phone: 09-21-2021 13:53-0500 Body weight 63.[address] Yady Vera Work Phone: [facility] Work Phone: 09-21-2021 13:53-0500 Diastolic blood pressure 78 mm[Hg] Dr. Yady Vera Work Phone: [facility] Work Phone: 09-21-2021 13:53-0500 Heart rate 80 /min Dr. Yady Vera Work Phone: [facility] Work Phone: 09-21-2021 13:53-0500 Respiratory rate 14 /min Dr. Yady Vera Work Phone: [facility] Work Phone: 09-21-2021 13:53-0500 SaO2% (BldA) [Mass fraction] 98 % Dr. Yady Vera Work Phone: [facility] Work Phone: 09-21-2021 13:53-0500 Systolic blood pressure 124 mm[Hg] Dr. Yady Vera Work Phone: [facility] Work Phone: 08-13-2021 10:31-0500 Body mass index (BMI) [Ratio] 28 kg/m2 Dr. Yady Vera Work Phone: [facility] Work Phone: 08-13-2021 10:31-0500 Body weight 63.[address] Yady Vera Work Phone: [facility] Work Phone: 08-13-2021 10:31-0500 Diastolic blood pressure 86 mm[Hg] Dr. Yady Vera Work Phone: [facility] Work Phone: 08-13-2021 10:31-0500 Heart rate 76 /min Dr. Yady Vera Work Phone: [facility] Work Phone: 08-13-2021 10:31-0500 Respiratory rate 18 /min Dr. Yady Vera Work Phone: [facility] Work Phone: 08-13-2021 10:31-0500 SaO2% (BldA) [Mass fraction] 98 % Dr. Yady Vera Work Phone: [facility] Work Phone: 08-13-2021 10:31-0500 Systolic blood pressure 139 mm[Hg] Dr. Yady Vera Work Phone: [facility] Work Phone: 01-05-2021 13:18-0400 Body mass index (BMI) [Ratio] 26.9 kg/m2 Dr. Yady Vera Work Phone: [facility] Work Phone: 01-05-2021 13:18-0400 Body mass index (BMI) [Ratio] 26.9 kg/m2 Dr. Yady Vera Work Phone: [facility] Work Phone: Encounters Encounter Date Encounter Type Care Provider Facility Start: 06-26-2025 Encounter for other preprocedural examination Terrell Chow [facility] Start: 06-23-2025 ambulatory Se Roberts [facility] Start: 06-23-2025 End: 06-24-2025 Evaluation and management of inpatient Se Roberts Facility:[facility] Start: 06-23-2025 ambulatory Se [facility] Start: 06-20-2025 End: 06-20-2025 ambulatory WINNIE DAVID Facility:[facility] Start: 06-17-2025 End: 06-17-2025 ambulatory Se Roberts [facility] Start: 06-12-2025 ambulatory Se Roberts Facility:[facility] Start: 06-12-2025 End: 06-12-2025 ambulatory Se Roberts [facility] Start: 06-11-2025 End: 06-11-2025 ambulatory WINNIE DAVID Facility:[facility] Start: 05-26-2025 End: 05-26-2025 ambulatory WINNIE DAVID Facility:[facility] Start: 05-06-2025 End: 05-06-2025 Orders Only Jaquelin Kraus MD Work Phone: [facility] Comment on above: Resistant hypertensi on Start: 04-25-2025 End: 04-25-2025 ambulatory Se Roberts Facility:[facility] Start: 04-17-2025 ambulatory Se Roberts [facility] Start: 04-15-2025 ambulatory Se Roberts [facility] Start: 04-15-2025 End: 04-15-2025 ambulatory Se Roberts Facility:[facility] Start: 03-11-2025 End: 03-11-2025 ambulatory Es Roberts [facility] Start: 03-10-2025 ambulatory Se Roberts [facility] Start: 03-10-2025 ambulatory Se Roberts [facility] Start: 03-10-2025 End: 03-10-2025 ambulatory [place] David Facility:[facility] Start: 03-06-2025 End: 03-06-2025 ambulatory Se Roberts [facility] Start: 03-06-2025 End: 03-06-2025 Patient encounter procedure Winnie Hernandez PA-C Work Phone: Rheumatology Comment on above: Rheumatoid arthritis , involving unspecified site, unspecified whether rheumatoid factor present (HCC) (Primary Dx); Age-related osteoporosis without current pathological fracture; Fusion of spine, lumbar region; Spinal stenosis of lumbar region, unspecified whether neurogenic claudication present Start: 03-06-2025 End: 03-06-2025 ambulatory WINNIE HERNANDEZ Facility:[facility] Start: 02-28-2025 End: 02-28-2025 ambulatory Se Roberts [facility] Start: 02-27-2025 End: 02-27-2025 E-mail encounter from caregiver Winnie Hernandez PA-C Work Phone: Rheumatology Start: 02-27-2025 End: 02-27-2025 Patient encounter procedure Winnie Hernandez PA-C Work Phone: Rheumatology Comment on above: Upcoming Rheumatolog y Appointment Start: 02-25-2025 End: 02-25-2025 ambulatory Se Roberts [facility] Start: 02-25-2025 End: 02-25-2025 ambulatory Eric Escobedo Facility:[facility] Start: 02-24-2025 End: 02-24-2025 ambulatory Se Roberts Facility:[facility] Start: 02-21-2025 End: 02-21-2025 ambulatory Jigna Haji Facility:[facility] Start: 02-14-2025 ambulatory Se Roberts [facility] Start: 02-12-2025 End: 04-14-2025 Follow-up encounter Winnie Hernandez PA-C Work Phone: Rheumatology Start: 02-11-2025 End: 02-12-2025 ambulatory WINNIE HERNANDEZ Facility:[facility] Start: 02-10-2025 End: 02-10-2025 ambulatory Se Roberts [facility] Start: 02-07-2025 ambulatory Rachel Hidalgo Facility :[facility] Start: 02-06-2025 End: 02-06-2025 ambulatory Se Roberts Facility:[facility] Start: 01-30-2025 ambulatory Se Roberts Facility:[facility] Start: 01-30-2025 End: 01-30-2025 ambulatory Se Roberts Facility:[facility] Start: 01-28-2025 End: 01-28-2025 ambulatory Se Roberts [facility] Start: 01-24-2025 ambulatory Se [facility] Start: 01-23-2025 End: 01-24-2025 ambulatory Rodolfomelissa Escobedo Facility:[facility] Start: 01-22-2025 End: 01-22-2025 ambulatory Se Roberts [facility] Start: 01-14-2025 End: 01-15-2025 ambulatory Se Roberts Facility:[facility] Start: 01-14-2025 End: 01-14-2025 ambulatory Kelechijennifer Huizarmedina Facility:[facility] Start: 01-07-2025 End: 01-07-2025 ambulatory Se Roberts Facility:[facility] Start: 01-01-2025 End: 01-01-2025 ambulatory Se Roberts Facility:[facility] Start: 12-29-2024 End: 12-29-2024 Emergency department patient visit Se Roberts Facility:[facility] Start: 12-29-2024 End: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 Narrative Images from the original note were not included. Rheumatology Clinic Visit March 06, 2025 Last seen: 12/05/24 CC: Follow Up HPI: Lele Pang is a 69 year old female who follows with rheumatology for Rheumatoid arthritis. BRIEF RHEUM History: Diagnosed with RA in 2015 though [facility] after multiple trigger finger surgeries and elevated rheumatologic markers. - Initially treated with methotrexate injections, which was later switched to leflunomide -history of osteoarthritis in her back and hips, for which she receives injections. She recently had a lumbar injection for severe sciatica with pain management at [facility], which significantly limited her mobility and [...] stress test and ECHO done all through [facility]. Mentally she feels like she is going [...] Negative Negative Last Bone Density: 12/18/2024 at [facility] - LS T-score -2.2 stable (3% increase) [...] OUTSIDE STUDIES / DATA Labs done at [facility]. Sed rate 7 normal BMP with elevated BUN 23 normal creatinine 0.92 AST ALT normal Tisha 1 negative SSA negative SSB negative Small negative WEIGHER AND GRADER negative SCL 70 negative double-stranded DNA negative [...] HX LUMBAR SPINE FUSION COMBINED 02/2017 L4-S1 [facility] Dr. Arteaga PAST SURGICAL HISTORY OF [...] in the lumbar spine DEXA 12/18/2024 at [facility] - LS T-score -2.2 stable (3% increase) [...] claudication present - has surgery scheduled with [facility] if she can pass nicotine testing. - [...] which included preparing to see the patient, [id number] patient care, completing clinical documentation, obtaining and/or reviewing separately obtained history, performing a medically appropriate examination, counseling and educating the patient/family/caregiver, and ordering medications, tests, or procedures. Winnie Hernandez PA-C documented in this encounter [facility] 12-29-2024 Note HNO ID: [id number] Author: JOSEFA SERNA APRN.MUSIC THERAPY SPECIALIST Service: ? Author Type: Nurse Practitioner Type: [...] pressure medications. Friend will take her now. [facility] 12-06-2024 Telephone encounter Note 109 pages of records received via fax from [facility]. Can be found under scanned documents. [facility] 12-06-2024 Miscellaneous Notes 109 pages of records received via fax from [facility]. Can be found under scanned documents. Message left on voicemail at [facility] for past records for this patient to be faxed to this office. documented in this encounter [facility] 12-05-2024 Telephone encounter Note Message left on voicemail at [facility] for past records for this patient to be faxed to this office. [facility] 12-05-2024 Winnie Negrete PA-C - 12/05/2024 11:54 AM EDT We discussed your rheumatoid arthritis: - Continue taking Leflunomide as prescribed. A 90-day supply has been sent to your pharmacy ([facility] on [address], [address]). - Schedule follow-up labs [...] - Schedule a bone density test at [facility] before your next visit to monitor [...] usual activities immediately. documented in this encounter [facility] 12-05-2024 Note HNO ID: [id number] Author: WINNIE HERNANDEZ PA-C Service: ? Author Type: Physician Photographic Lithographer Type: Progress Notes Filed: 12/05/2024 21:46 Note Text: Rheumatology CONSULTATION Date of Service: 12/05/2024 Patient: Lele Pang Medical Record: [id number] Primary Care Physician: Yady Vera MD Last Rheumatology visit: None at [facility] Referring Provider: Daron Mark [facility] [place] [facility] [id number] Lele Pang is here today at request of Dr. Mark specifically for consultation of my opinion in regards to the chief complaint listed below. Correspondence will be shared today via the [employer] electronic health record or through regular mail, where applicable. History of Present Illness Lele is a 69-year-old female with a history of RA, presenting for evaluation and management. She is currently taking leflunomide. Lele is both RF - 34 (09/26/2023) and CCP positive. Pain Evaluation 05/21/2019 05/21/2019 05/21/2019 11/08/2022 11/25/2022 Pain Evaluation Pain Score 7 4 7 5 7 Location Back Public Health Nurse-Left Shoulder-Right Description Aching Aching Sore Radiating;Burning;Dull Duration [...] HX LUMBAR SPINE FUSION COMBINED 02/2017 L4-S1 [facility] Dr. Arteaga PAST SURGICAL HISTORY OF [...] Reported on 12/05/2024) (more content not included)... [facility] 12-05-2024 History of Presen t illness Narrative Images from the original note were not included. Rheumatology CONSULTATION Date of Service: 12/05/2024 Patient: Lele Pang Medical Record: [id number] Primary Care Physician: Yady Vera MD Last Rheumatology visit: None at [facility] Referring Provider: Daron Zaidi E [place] Atkinson [facility] [id number] Lele Pang is here today at request of Dr. Mark specifically for consultation of my opinion in regards to the chief complaint listed below. Correspondence will be shared today via the [employer] electronic health record or through regular mail, where applicable. History of Present Illness Lele is a 69-year-old female with a history of RA, presenting for evaluation and management. She is currently taking leflunomide. Lele is both RF - 34 (09/26/2023) and CCP positive. Pain Evaluation 05/21/2019 05/21/2019 05/21/2019 11/08/202211/25/2022 Pain Evaluation Pain Score 7 4 7 5 7 Location Back Public Health Nurse-Left Shoulder-Right Description Aching Aching Sore Radiating;Burning;Dull Duration [...] HX LUMBAR SPINE FUSION COMBINED 02/2017 L4-S1 [facility] Dr. Arteaga PAST SURGICAL HISTORY OF [...] - 15.5 g/dL 14.3 13.9 13.8 Hemoglobin, Paul 12.0 - 16.0 g/dL 13.9 Hematocrit 36.0 [...] - 144 mmol/L 142 139 140 Sodium, [place] 136 - 145 mmol/L 144 Potassium 3.7 - 5.1 mmol/L 4.0 3.9 3.8 Potassium, [place] 3.5 - 5.1 mmol/L 4.4 Chloride 97 - 105 mmol/L 105 108 104 Chloride, [place] 98 - 107 mmol/L 105 CO2 22 - 30 mmol/L 28 24 28 CO2, [place] 21.0 - 32.0 mmol/L 27.8 Glucose 74 - 99 mg/dL 90 97 102 Glucose, Paul 70 - 99 mg/dL 96 BUN 7 - 21 mg/dL 14 19 20 BUN, [place] 7 - 18 mg/dL 17 Creatinine 0.58 - 0.96 mg/dL 0.79 0.70 0.72 Creatinine, Paul 0.6 - 1.0 mg/dL 0.7 Calcium, Paul 8.5 - 10.1 mg/dL 9.0 Calcium 8.5 - 10.2 mg/dL 9.6 10.1 10.2 AST 13 - 35 U/L 32 15 26 AST, [place] 15 - 37 U/L 20 ALT 7 - 38 U/L 29 18 22 ALT, [place] 30 - 65 U/L 43 Alkaline Phosphatase [...] STUDIES / DATA Labs done 25 at [facility]. Sed rate 7 normal BMP with elevated BUN 23 normal creatinine 0.92 AST ALT normal Tisha 1 negative SSA negative SSB negative Small negative WEIGHER AND GRADER negative SCL 70 negative double-stranded DNA negative [...] Immunizations Never Reviewed Name Date COVID-19 vaccine ([employer]) 07/22/2023 COVID-19 vaccine, bivalent ([employer]) 09/22/2022 COVID-19 vaccine, monovalent ([email or web address]) 01/20/2022, 07/09/2021, 12/01/2020, 11/10/2020 Physical Exam GENERAL [...] Full ROM in flexion and extension. 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 No swelling or synovitis along the [...] trigger finger surgeries. Recent labs (10/2024) from [facility] with Positive RF/CCP Currently well-managed with leflunomide. Previous treatment with methotrexate was discontinued, possibly due to liver function concerns. No current joint pain or stiffness in hands; occasional swelling noted in the past. Physical exam reveals tenderness in some knuckles, but no significant inflammation observed. - Continue leflunomide therapy. Prescribed a 90-day supply, sent to [facility]. - Monitor liver function and blood [...] release surgery performed a week ago at [facility]. Patient reports some tenderness in the affected [...] bone density test to be performed at [facility] on same machine - Check vitamin D [...] supply has been sent to your pharmacy ([facility] on [address], [address]). - Schedule follow-up labs [...] - Schedule a bone density test at [facility] before your next visit to monitor [...] office. Will have staff request records from [facility] as well. Return in about 8 weeks (around 01/31/2025) for Follow up, labs prior. I spent a total of 60 minutes on the date of the service which included preparing to see the patient, [id number] patient care, completing clinical documentation, obtaining and/or reviewing separately obtained history, performing a medically appropriate examination, counseling and educating the patient/family/caregiver, and ordering medications, tests, or procedures. The patient consented to the use of [employer] software for draft documentation of the visit consistent with [facility] s Notice of Privacy Practices. Winnie Hernandez PA-C Rheumatology Date: December 05, 2024 Time: 9:45 PM documented in this encounter [facility] 11-26-2024 Note [facility] 11-25-2022 History of Presen t illness [...] 2022 4:22 PM documented in this encounter [facility] 11-25-2022 History of Presen t illness [...] history is provided by the patient. No manager fixed income was used. Pain (Shoulder Pain) Review of [...] HX LUMBAR SPINE FUSION COMBINED 02/2017 L4-S1 [facility] Dr. Arteaga PAST SURGICAL HISTORY OF [...] joint. IMPRESSION IMPRESSION: No acute osseous abnormality Teacher Ballet: OSMIN Transcribe Date/Time: Nov 25 2022 4:36P [...] Josefa Serna APRN.ROSIO documented in this encounter [facility] 11-08-2022 History of Presen t illness Narrative [...] that she used a burn gel from [employer] and a special band aid for [place]. [...] HX LUMBAR SPINE FUSION COMBINED 02/2017 L4-S1 [facility] Dr. Arteaga PAST SURGICAL HISTORY OF [...] Lizette Hayward APRN.CNP documented in this encounter [facility] 11-08-2022 Instructions Lizette Hayward APRN.CNP - [...] / or swelling. documented in this encounter [facility] 09-23-2022 Hospital Discharg e instructions Patient Education [...] worsens and is not improved with elevation. [id number] [employer]. [address] [place] [address]. All rights reserved. This information is not intended as a substitute for professional medical care. Always follow your healthcare professional's instructions. Follow Up Care 09/23/2022 17:27:06 With:Your pain management physician Address: When:2-4 days With:SAPNA ASHLEY MD Address: [facility] [address] [place] [address]- When:2-4 days [facility] 09-23-2022 Note ORIGINAL EXAMINATION: THREE XRAY VIEWS [...] 09/23/2022 6:50:07 PM Ordering Provider: ERICK BELL [facility] 09-23-2022 Note Discharge Instructions Thank you for allowing [facility] to assist you with your healthcare needs. [...] 2-4 days Where: [facility] [address] [place] [address]- Allergies benzonatate penicillin Medications Please ask your [...] worsens and is not improved with elevation. [phone] [employer]. [address] [place], [place] [id number]. All rights reserved. This information is not intended as a substitute for professional medical care. Always follow your healthcare professional's instructions. Additional Information VACCINATE! IT SAVES LIVES! Members of the community who have not yet received the COVID-19 vaccine and would like to receive it can visit one of [facility] vaccine clinics. There are many vaccine clinic locations within the [facility]. For locations and available times, please visit [email or web address]. It is important to note that some COVID mobile vaccine clinics are held outdoors and may be canceled in rainy or stormy conditions. To learn more about pediatric vaccinations (ages 5-11), we invite you to visit the [facility] webpage. [email or web address] To learn more about the COVID-19 vaccine, we invite you to visit the [facility] website for a list of frequently asked questions. [email or web address] [facility] [employer] Patient Portal Access Instructions: Stay connected with your healthcare team and access your personal medical information anytime with the [employer] Patient Portal. If you would like a full copy of your medical records please contact the [facility] Medical Records Department Monday through Monday between 8a.m. and 4:30p.m. Please follow the directions below to access the portal: 1.Access the email account you provided upon registration to the special care hospital.2.Look for an invitation email from [facility].3.Open the email and access the invitation link: [facility].Fill in the required lopez to create your account. Sign into [email or web address] with your username and password that you [...] you will allow to register on the [place] [employer] Patient Portal for access to your information. You can also access the [employer] Patient Portal on the [employer] memo. Simply click on Health Records under [...] Call your local pharmacy or go to [email or web address] to find one close to you.3.Make use of household items: Use cat litter or old coffee grounds to dispose medications if other options are not available. Mix your drugs with these household products, seal them in an airtight container and throw it into the garbage. Call [facility]: [phone] to be sure your drugs can be [...] aware that I should contact my doctor. Patient/Clerk Of Works Signature: Date/Time: Relationship to Patient: Witness Name/Signature: Date/Time: [facility] 09-23-2022 Note ORIGINAL EXAMINATION: THREE XRAY VIEWS [...] 09/23/2022 6:50:07 PM Ordering Provider: ERICK BELL [facility] Evaluation + Plan note No data available for this section [facility] Evaluation note Diagnosis Onset Date Abnormal EKG acute CARBAJAL (dyspnea on exertion) ac [place] Essential hypertension chron ic Hyperlipemia chronic Insomnia acute Essential hypertension chron ic GERD (gastroesophageal reflux disease) chronic Nicotine dependence, cigaret dago, uncomplicated acute Shortness of breath acute [facility] Work Phone: Evaluation note* Diagnosis Onset Date Resolution Status Abnormal EKG acute CARBAJAL (dyspnea on exertion) ac [place] Essential hypertension chron ic Hyperlipemia chronic Essential hypertension chron ic GERD (gastroesophageal reflux disease) chronic Insomnia chronic Nicotine dependence, cigarettes, uncomplicated acute Shortness of breath chronic Essential hypertension chron ic Insomnia chronic Shortness of breath chronic Tobacco use disorder, continuous chronic Nicotine dependence, cigarettes, uncomplicated acute Tremor chronic [facility] Work Phone: Evaluation note* Diagnosis Onset Date Resolution Status Nicotine dependence, cigarettes, uncomplicated acute Shortness of breath chronic Essential hypertension chron ic Insomnia chronic Shortness of breath chronic Tobacco use disorder, continuous chronic Nicotine dependence, cigarettes, uncomplicated acute Tremor chronic Eosinophilia acute [facility] Work Phone: Evaluation note* Diagnosis Onset Date Resolution Status Nicotine dependence, cigarettes, uncomplicated acute Shortness of breath chronic Essential hypertension chron ic Insomnia chronic Shortness of breath chronic Tobacco use disorder, continuous chronic Nicotine dependence, cigarettes, uncomplicated acute Tremor chronic Eosinophilia acute Post-menopausal acute Vitamin D deficiency acute Essential hypertension chron ic Hyperlipemia chronic Overweight chronic [facility] Work Phone: Evaluation note* Diagnosis Onset Date [...] Smoking greater than 40 pack years acute [facility] Work Phone: Evaluation note* Diagnosis Onset Date Resolution Status Essential hypertension chron ic Insomnia chronic Shortness of breath chronic Tobacco use disorder, continuous chronic Nicotine dependence, cigarettes, uncomplicated acute Tremor chronic Eosinophilia acute Post-menopausal acute Vitamin D deficiency acute Essential hypertension chron ic Hyperlipemia chronic Overweight chronic Asthma acute Smoking greater than 40 pack years acute [facility] Work Phone: Evaluation note* Diagnosis Onset Date Resolution Status Osteopenia with high risk of fracture acute ADD (attention deficit disorder) chronic Essential hypertension chron ic [facility] Work Phone: Evaluation note* Diagnosis Onset Date Resolution Status ADD (attention deficit disorder) chronic Essential hypertension chron ic Osteopenia with high risk of fracture chronic AA (alcohol abuse) acute ADD (attention deficit disorder) chronic Essential hypertension chron ic Heat intolerance chronic Osteopenia with high risk of fracture chronic Tobacco use disorder, continuous chronic [facility] Work Phone: Evaluation note* Diagnosis Burn, wrist, second degree, left, initial encounter- [facility] Pain- Primary Generalized [facility] Diagnosis Pre-operative examination- Primary Preoperative examination, [...] Pain Generalized [facility] Diagnosis Pre-operative examination- Primary Preoperative [...] COPD type (HCC) documented in this encounter [facility] note* Diagnosis Pre-operative examination- Primary Preoperative [...] neurogenic claudication present [facility] Pre-operative examination- Primary Preoperative examination, [...] health Resistant hypertension documented in this encounter [facility] for referral (narrative)* Diagnostic Procedure Only (Urgent) - Closed Specialty Diagnoses / Procedures Referred By Contac t Referred To Contact XR IMAGING Diagnoses Pain Procedures XR SHOULDER GENERAL 3V OR MORE AP/TRUE AP/OTHER RIGHT RADEX SHOULDER COMPLETE MINIMUM 2 VIEWS Josefa Serna APRN.CNP [address] [place] [address] [place] [id number] Referral ID Status Reason Start Date Expiration Date V isits Requested Visits Authorized [id number] Closed Auto-Generate d Referral 11/25/2022 12/25/2023 1 1 [facility] for visit Narrative* Diagnostic Procedure Only (Urgent) - Closed Specialty Diagnoses / Procedures Referred By Contac t Referred To Contact XR IMAGING Diagnoses Pain Procedures XR SHOULDER GENERAL 3V OR MORE AP/TRUE AP/OTHER RIGHT RADEX SHOULDER COMPLETE MINIMUM 2 VIEWS Josefa Serna APRN.MUSIC THERAPY SPECIALIST [address] [place] [address] [place] [address] Referral ID Status Reason Start Date Expiration Date V isits Requested Visits Authorized [id number] Closed Auto-Generate d Referral 11/25/2022 12/25/[address] [facility] Summary Purpose Family History No Family History Records Found Relationship Condition Age at Onset Recorded Date/T leandro Not Specified Alcoholism Unknown Arthritis Unknown Cardiac disease Unknown Hyperlipidemia Unknown Hypertension Unknown Asthma Unknown brother Coronary artery disease 69 Advance Directives No Advanced Directives Records Found Advance Directive Response Recorded Date/ Time Advance Directives No April 08, 10:35am Living Will Yes March 07, 2021 1 0:44pm Power of Contact And Service Clerks Supervisor No March 07, 2021 10:44pm Advance Directive Response Recorded Date/ Time Advance Directives No April 08, 020 9:35am Living Will Yes March 07, 2021 9 :44pm Power of Contact And Service Clerks Supervisor No March 07, 2021 9:44pm Documents on File Type Date Recorded Patient Clerk Of Works Expl anation Advance Directive(s) 05/08/2019 10:56 AM Documents on File Type Date Recorded Patient Clerk Of Works Expl anation Advance Directive(s) 05/08/2019 10:56 AM [...] Diagnoses Pain Procedures CONSULT TO ORTHOPAEDICS OFFICE/OUTPATIENT [facility] MDM 60-74 MINUTES Josefa Serna APRN.MUSIC THERAPY SPECIALIST [address] [place] [address] Referral ID Status Reason Start Date Expiration Date Visits Requested Visits Authorized [id number] Pending Review PCP Requested Referral 11/25/2022 11/25/2023 1 1 Specialty Diagnoses / Procedures Referred By Contac t Referred To Contact XR IMAGING Diagnoses Pain Procedures XR SHOULDER GENERAL 3V OR MORE AP/TRUE AP/OTHER RIGHT RADEX SHOULDER COMPLETE MINIMUM 2 VIEWS Josefa Serna APRN.MUSIC THERAPY SPECIALIST [address] [place] [address] Xr Imaging Referral ID Status Reason Start Date Expiration Date V isits Requested Visits Authorized [id number] Closed Auto-Generate d Referral 11/25/2022 12/25/2023 1 1 Additional Source Comments INFORMATION SOURCE (unrecogn ized section and content) DATE CREATED AUTHOR 05/22/2019 [facility] DATE CREATED AUTHOR AUTHOR'S ORGANIZ ATION 10/01/2022 [facility] ([place]) DATE CREATED AUTHOR AUTHOR'S ORGANIZ ATION 06/22/2025 [facility] DATE CREATED AUTHOR AUTHOR'S ORGANIZ ATION 06/26/2025 [facility] Goals (unrecognized section and content) Goals [...] Role: Primary Care Physician Address: Address: [facility]/[address] [place] [address]- [place] Name: ERICK BELL DO Position: AH Resident Member Role: Resident Address: Address: [address] [place] [address] ED [place], [place] [address] Name: JOSE RAMON Paniagua Position: MELE RN [...] or prosecute any alcohol or drug abuse patient.[facility] the event this information is protected by the Federal Confidentiality of Alcohol and Drug Abuse Patient Records regulations: The Federal rules restrict any use of the information to criminally investigate or prosecute any alcohol or drug abuse patient.[facility] the event this information is protected by the Federal Confidentiality of Alcohol and Drug Abuse Patient Records regulations: The Federal rules restrict any use of the information to criminally investigate or prosecute any alcohol or drug abuse patient.[facility] the event this information is protected by the Federal Confidentiality of Alcohol and Drug Abuse Patient Records regulations: The Federal rules restrict any use of the information to criminally investigate or prosecute any alcohol or drug abuse patient.[facility] the event this information is protected by the Federal Confidentiality of Alcohol and Drug Abuse Patient Records regulations: The Federal rules restrict any use of the information to criminally investigate or prosecute any alcohol or drug abuse patient.[facility] the event this information is protected by the Federal Confidentiality of Alcohol and Drug Abuse Patient Records regulations: The Federal rules restrict any use of the information to criminally investigate or prosecute any alcohol or drug abuse patient.[facility] the event this information is protected by the Federal Confidentiality of Alcohol and Drug Abuse Patient Records regulations: The Federal rules restrict any use of the information to criminally investigate or prosecute any alcohol or drug abuse patient.[facility] the event this information is protected by the Federal Confidentiality of Alcohol and Drug Abuse Patient Records regulations: The Federal rules restrict any use of the information to criminally investigate or prosecute any alcohol or drug abuse patient.[facility] the event this information is protected by the Federal Confidentiality of Alcohol and Drug Abuse Patient Records regulations: The Federal rules restrict any use of the information to criminally investigate or prosecute any alcohol or drug abuse patient.[facility] the event this information is protected by the Federal Confidentiality of Alcohol and Drug Abuse Patient Records regulations: The Federal rules restrict any use of the information to criminally investigate or prosecute any alcohol or drug abuse patient.[facility] Reason for Visit (unrecogniz ed section and content) Reason Comments Burn left wrist x 5 days, iron Reason Comments Pain (Shoulder Pain) R shoulder pain x1 week Reason Comments New Patient Specialty Diagnoses / Procedures Referred By Zahra guajardo Referred To Contact Rheumatology / RHEUMATOLOGY Diagnoses Rheumatoid arthritis (HCC) rheumaoid arthritis referred by Daron Mark Procedures OFFICE/OUTPATIENT [facility] 60 MINUTES [facility] Daron Mark, MUSIC THERAPY SPECIALIST [address] [place] [address] Phone: tel: fax: Winnie Hernandez PA-C [address] [place] [id number] Phone: tel: fax: Referral ID Status Reason Start Date Expiration Date Visits Re quested Visits Authorized [id number] Closed 11/27/2024 09/03/2025 1 1 Reason Comments Request Outside Medical Records Reason Comments Follow Up Specialty Diagnoses / Procedures Referred By Zahra guajardo Referred To Contact Rheumatology / RHEUMATOLOGY Diagnoses Rheumatoid arthritis (HCC) rheumaoid arthritis referred by Daron Mark Procedures OFFICE/OUTPATIENT [facility] 60 MINUTES [facility] Daron Greenfield, MUSIC THERAPY SPECIALIST [address] [place] [address] Phone: tel: fax: Winnie Hernandez PA-C [address] [place] [address] Phone: tel: fax: Care Teams (unrecognized sec tion and content) [employer] Relationship Specialty Start Date End Date Yady Vera MD [address] [place] [address] PCP - General Internal Medicine 11/08/22 [employer] Relationship Specialty Start Date End Date Yady Vera MD [address] [place] [address] PCP - General Internal Medicine 11/08/22 [employer] Relationship Specialty Start Date End Date Yady Vera MD [address] [place] [address] PCP - General Internal Medicine 11/08/22 [employer] Relationship Specialty Start Date End Date Yady Vera MD [address] [place] [address] PCP - General Internal Medicine 11/08/22 [employer] Relationship Specialty Start Date End Date Yady Vera MD [address] [place] [address] PCP - General Internal Medicine 11/08/22 [employer] Relationship Specialty Start Date End Date Yady Vera MD [address] [place] [address] PCP - General Internal Medicine 11/08/22 [employer] Relationship Specialty Start Date End Date Se Roberts CNP [address] [facility] [place] [address] PCP - General Family Medicine 12/29/24 [employer] Relationship Specialty Start Date End Date Se Roberts CNP [address] [facility] [place] [address] PCP - General Family Medicine 12/29/24 [employer] Relationship Specialty Start Date End Date Se Roberts CNP [address] [place] [address] PCP - General Family Medicine 12/29/24 [employer] Relationship Specialty Start Date End Date Se Roberts ROSIO [address] [place] [address] PCP - General Family Medicine 12/29/24 FOR [...] BE BASED ON THE PRIMARY CLINICAL RECORDS. [employer] provides no warranty or guarantee of the accuracy or completeness of information in this document.
[2025-06-27 19:36] VITALS: BP 129/79; PULSE 61; RESP 16; TEMP 36.6; O2SAT 100
== END 2025-06-27 19:37 | disposition home or self-care (01) ==
PROVIDERS: Emergency Provider Emergency Medicine; PCP Nurse Practitioner Family; Visit Provider Emergency Medicine
DX: M79.89 Other specified soft tissue disorders (principal); J44.9 Chronic obstructive pulmonary disease, unspecified; G62.9 Polyneuropathy, unspecified; Z87.891 Personal history of nicotine dependence; E78.00 Pure hypercholesterolemia, unspecified; I10 Essential (primary) hypertension; K21.9 Gastro-esophageal reflux disease without esophagitis
CPT/HCPCS: 93971; 99283

== ENCOUNTER → 2025-07-18 | Outpatient (CLI) | payer MEDICARE, MEDICAID, SELFPAY ==
--- NOTE | 2025-07-18 14:08 | RAD_ITS ---
PROCEDURE: ANKLE MIN 3 VIEWS 07/18/2025 REASON FOR EXAM: EFFUSION TECHNIQUE: Procedure Code: RADANK Modality: DX Procedure: ANKLE MIN 3 VIEWS Laterality: COMPARISON: None FINDINGS: Bones: There are no fractures or dislocations Joints: Ankle mortise is intact. The visualized remaining joint spaces are unremarkable. Soft tissues: Significant soft tissue swelling of the ankle is noted. RAD/Ankle min 3 Views IMPRESSION: Soft tissue swelling left ankle. There are no fractures or dislocations. Reading Location: [id number]
== END | disposition home or self-care (01) ==
LOC: MTRAD 14:07
PROVIDERS: PCP Nurse Practitioner Family; Referring Provider Nurse Practitioner Family; Visit Provider Nurse Practitioner Family
DX: M25.472 Effusion, left ankle (principal)
CPT/HCPCS: 73610

== ENCOUNTER → 2025-07-23 | Outpatient (CLI) | payer MEDICARE, MEDICAID, SELFPAY ==
[2025-07-23 17:28] LABS: Follicle Stimulating Hormone 45.8 mIU/mL
[2025-07-25 04:07] LABS: PROGESTERONE 0.1 ng/mL (.)
[2025-07-29 12:08] LABS: Estrogen, Total, Serum 45 pg/mL (40-244); Testosterone, % Free 1.82 % (0.50-2.80); Testosterone, Free <.05 ng/dL (0.10-0.85)
== END | disposition home or self-care (01) ==
LOC: VSLAB 14:18
PROVIDERS: PCP Nurse Practitioner Family; Referring Provider Nurse Practitioner; Visit Provider Nurse Practitioner
DX: F32.9 Major depressive disorder, single episode, unspecified (principal)
CPT/HCPCS: 36415; 82670; 82672; 83001; 83002; 84144; 84402; 84403

== ENCOUNTER → 2025-07-28 | Outpatient (CLI) | payer MEDICARE, MEDICAID, SELFPAY ==
--- NOTE | 2025-07-28 12:25 | BI_ITS ---
EXAM: SCRN MAMM (CAD)W/KYREE BILAT DATE: 07/28/2025 CLINICAL HISTORY: F, Age 70 y/o , SCREENING TECHNIQUE: Procedure Code: [id number] Modality: MG Procedure: SCRN MAMM (CAD)W/KYREE BILAT COMPARISON: Prior exam(s) were compared FINDINGS: TISSUE DENSITY: The breasts are heterogeneously dense, which may obscure small masses. Bilateral Breast Mammographic Findings: Right breast: There are increasing grouped calcifications in the upper-outer right breast a mid depth. Recommend diagnostic right breast mammogram spot magnification CC and true lateral views. Left breast: No significant masses, calcifications or other abnormalities are identified. BI/SCRN MAMM (CAD)W/KYREE BILAT IMPRESSION: Increasing grouped calcifications in the upper-outer right breast a mid depth. Recommend diagnostic right breast mammogram spot magnification CC and true lateral views. No mammographic evidence of malignancy in the left breast. OVERALL FINAL ASSESSMENT BI-RADS 0: INCOMPLETE - NEED ADDITIONAL IMAGING EVALUATION. RECOMMENDATION: Additional Views obtained/call backs Additional Recommendation none A letter with findings and recommendations will be mailed to the patient. Reading Location: [id number]
== END | disposition home or self-care (01) ==
LOC: OPBI 12:22
PROVIDERS: PCP Nurse Practitioner Family; Referring Provider Nurse Practitioner Family; Visit Provider Nurse Practitioner Family
DX: Z12.31 Encounter for screening mammogram for malignant neoplasm of breast (principal)
CPT/HCPCS: 77063; 77067

== ENCOUNTER → 2025-08-11 | Outpatient (CLI) | payer MEDICARE, MEDICAID, SELFPAY ==
--- NOTE | 2025-08-11 12:58 | BI_ITS ---
EXAM: DIAG MAMM W/CAD, UNILAT N/A CLINICAL HISTORY: F, Age 70 y/o , ABN MAMM TECHNIQUE: Procedure Code: [id number] Modality: MG Procedure: DIAG MAMM W/CAD, UNILAT. COMPARISON: Prior exam(s) dated 07/28/2025, 02/05/2024, and 01/31/2023. FINDINGS: TISSUE DENSITY: The breasts are heterogeneously dense, which may obscure small masses. Unilateral Right Breast Mammographic Findings: There are 3 clusters of amorphous, round and punctate microcalcifications in the superior outer aspect of the right breast. Collectively they have somewhat of a linear distribution. The largest cluster is located more posteriorly covering an area measuring approximately 1 cm. Collectively they cover an area measuring approximately 3.5 cm. The calcifications are worrisome for possible DCIS. The separate clusters may represent skip lesions. Biopsy of the more anterior cluster and more posterior cluster is recommended. If either of these are positive, the entire area should be surgically excised. BI/DIAG MAMM W/CAD, UNILAT IMPRESSION: There are 3 clusters of amorphous, round and punctate microcalcifications in th e superior outer aspect of the right breast. Collectively they have somewhat of a linear distribution. The largest cluster i s located more posteriorly covering an area measuring approximately 1 cm. Collectively they cover an area measuring approxi mately 3.5 cm. The calcifications are worrisome for possible DCIS. The separate clusters may represent skip lesions. Biopsy of the more anterior cluster and more posterior cluster is recommended. If either of these are positive, the entire area should be surgically excised. OVERALL FINAL ASSESSMENT BI-RADS 4: SUSPICIOUS RECOMMENDATION: Biopsy Recommended Additional Recommendation none A letter with findings and recommendations will be mailed to the patient. Reading Location: [id number]
== END | disposition home or self-care (01) ==
PROVIDERS: PCP Nurse Practitioner Family; Referring Provider Nurse Practitioner Family; Visit Provider Nurse Practitioner Family
DX: R92.8 Other abnormal and inconclusive findings on diagnostic imaging of breast (principal)
CPT/HCPCS: 77065

== ENCOUNTER → 2025-08-21 | Outpatient (CLI) | payer MEDICARE, MEDICAID, SELFPAY ==
--- NOTE | 2025-08-20 10:00 | BRBX_PTH ---
PATIENT: LELE ABDUL LOC: [facility] U#:[id number] AGE/SX: 70/F ROOM: RE08/21/[address]: Dr. Tutu Mccall MD : 1955 BED: DIS: 08/21/2025 SPEC #: [id number] RECD: 08/21/25 10:07 STATUS: LEONA REQ #: [id number] TAHIR: 08/20/25 10:[address]: Tutu Mccall DEPT: SURGICAL PATHOLOGY RECD BY: Matt Gibbs ENTERED: 08/21/25 11:08 SP TYPE: BREAST BX OTHR DR: Kvng Orellana, [place] PROGRAM COORDINATOR-C Tissues: A - Right breast, NOS B - Right breast, NOS Procedures: Immunohistochemical Stains Surgery Specimen Level IV IHC Stain ADDITIONAL HEADER OPERATION: Right stereotactic breast biopsy PRE-OP DIAGNOSIS: Right breast calcifications TISSUE SUBMITTED: A. Right breast, stereotactic biopsy MICROSCOPIC DIAGNOSIS A. 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 - Calcifications identified. - ER: negative - IHC for CK5/6 and p40 support the histologic impression. B. 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 - Calcifications identified. - IHC for CK5/6 and p40 support the histologic impression. - ER is pending and will be reported in an addendum. MICROSCOPIC DESCRIPTION Slides are reviewed. All matched controls reacted appropriately. These tests were developed and their performance characteristics determined by [facility]. They may not have been cleared or approved by the U.S. Food and Drug Administration. The FDA has determined that such clearance or approval is not necessary. The above immunohistochemical markers and/or special?stains have been reviewed by the Pathologist. GROSS DESCRIPTION Received fresh in 2 micki dishes and subsequently placed in formalin, labeled patient's name and date of . Designated per requisition, as follows: A. R breast anterior area are 6 arnold-yellow tissue cores, 1.9 to 2.3 cm in length by 0.5 cm in diameter. Review of postoperative imaging confirms the presence of calcifications in all chambers with the exception of chamber #4. Entirely submitted in 3 cassettes as follows:A1: Chambers #1/#2A2: Chambers #3/#5A3: Chambers #4/#6 Cold ischemic time: 11 minutesFormalin fixation time: 9 hours, 19 minutes B. R breast posterior area are 6 arnold-yellow tissue cores, 1.9 cm to 2.9 cm in length by 0.6 cm in diameter. Review of postoperative imaging confirms the presence of calcifications in all chambers with the exception of chamber #4. Entirely submitted in 3 cassettes as follows: B1: Chambers #1/#2B2: Chambers #3/#5B3: Chambers #/#6 Cold ischemic time: 13 minutesFormalin fixation time: 8 hours, 54 minutes CPT: [id number] ADDENDUM ADDENDUM ADDENDUM ADDENDUM 09/02/2025 12:59 ADDENDUM 09/02/2025 12:59 ADDENDUM 09/02/2025 12:59 ADDENDUM 09/02/2025 12:59 ADDENDUM 09/02/2025 12:59 This addendum is to report the ER for part B: B) ER: negative.
--- NOTE | 2025-08-21 13:00 | PCM.OPRPT ---
Procedures Integumentary [id number]-[id number]: 36904 [facility] Operative Report (Standard) Operative Information Date of Procedure: 08/21/25 Pre-Operative Diagnosis: Right breast microcalcifications Post-Operative Diagnosis: Same Surgery/Procedure Performed: Right breast stereotactic biopsy x 2 sites systems security consultant: No Type of Anesthesia: Local Procedure Start Time: 09:44 Procedure Stop Time: 10:30 Select all DRAINS/GRAFTS/IMPLANTS that apply: None (Marking clip x 2) and Implanted device Implanted device details: Marking clip x 2 Estimated Blood Loss: Minimal Specimen collected: Yes Description of specimen(s) removed: Right breast tissue x 2 sites with microcalcifications. Description of surgery: The patient is a 70-year-old female recently seen through the office with an abnormal right breast mammogram showing the 3 areas of microcalcifications and relative close proximity. Biopsies were recommended of at least 2 of the 3 sites. I offered her a stereotactic biopsy. We discussed the details of the planned procedure including the risks benefits and alternatives and she wished to proceed. She was brought to the mammotome suite today following informed consent. She was placed prone on the procedure room table. The right breast was then placed into compression. Rubber Covering Machine Operator views were obtained until the first area of microcalcifications were identified. These were felt to be the more anterior grouping of calcifications. Scalp views were obtained and then followed up with stereotactic views. These were used to target upon the region of calcifications. The skin was prepped and draped in the usual manner. Local anesthetic was infiltrated. A small skin incision was made using #11 blade. The biopsy device was inserted and then fired. For post fire images showed the biopsy device to be in satisfactory position. Next circumferential suction biopsies were then obtained with good tissue sampling. The specimens were radiographed and clearly showed microcalcifications present. These were sent to pathology. Next the patient's breast was then repositioned. We were then able to find a region of more posterior calcifications. In a similar manner, the area was prepped and draped in the usual manner local anesthetic was infiltrated. The lesion was targeted and the biopsy device was inserted. Against circumferential suction biopsies were obtained with good tissue sampling. This tissue was also radiographed and showed calcifications. A separate clip was then applied. She tolerated the procedure well. Steri-Strips were applied to both incisions. She tolerated the procedure well. She will be notified of pathology results once they become available. Surgical Findings: See procedure note Complications Complications: No Admit VTE Documentation VTE Present on Admission: No VTE Mechan Device Prophylaxis: SCD's VTE Pharm Prophylaxis ordered?: No Reason prophylaxis not ordered: Treatment Not Indicated
--- NOTE | 2025-08-22 11:20 | NURSING ---
pt states is having a little oozing of blood from one of the biopsy sites. this rn instructed pt to apply pressure for 30 min and to call the dr office and make them aware that she is oozing. pt verbalized understanding.
== END | disposition home or self-care (01) ==
LOC: BIRAD 09:29
PROVIDERS: PCP Nurse Practitioner Family; Referring Provider Surgery; Visit Provider Surgery
DX: D05.11 Intraductal carcinoma in situ of right breast (principal)
CPT/HCPCS: 19081; 19082; 88305; 88341; 88342; A4648